=== PATIENT | female | born 1940 | race Caucasian/White ===

== ENCOUNTER → 2016-12-07 | Outpatient (CLI) | payer MEDICARE ==
--- NOTE | 2016-12-07 11:49 | XR ---
EXAMINATION TYPE: XR abdomen 2V DATE OF EXAM: 12/07/2016 11:43 AM COMPARISON: 09/28/2015 HISTORY: Right lower quadrant pain TECHNIQUE: One view abdominal series FINDINGS: Scoliosis and degenerative change of the spine. Surgical clips in the right upper quadrant. 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 Suggestion of previous surgery involving the pelvis. Arthropathy of the hips and vascular appearing pelvic calcifications. The bowel gas pattern is nonspe cific. Lung bases are clear. Findings suggest splenic granuloma. IMPRESSION: 1. Nonspecific abdomen.
== END | disposition home or self-care (01) ==
LOC: RADXRMAIN 11:18
PROVIDERS: ATTEND Family Medicine
DX: R10.31 Right lower quadrant pain (principal)
CPT/HCPCS: 74020

== ENCOUNTER 2016-12-31 21:51 | Inpatient (IN) | payer MEDICARE ==
[2016-12-31] MEDS ORDERED: predniSONE 20 MG TAB PO STA (22:39)
[2016-12-31] MEDS ORDERED: IPRATROPIUM-ALBUTEROL 3 ML NEB INHALATION STA (22:39)
--- NOTE | 2016-12-31 22:43 | ED ---
SOB HPI - General Chief Complaint: Shortness of Breath Stated Complaint: Cough/SOB Time Seen by Provider: 12/31/16 21:53 Source: patient Mode of arrival: wheelchair Limitations: no limitations - History of Present Illness Initial Comments: This patient is a 76-year-old woman with history of COPD who presents with about 6 days of shortness of breath. She states she also has a nonproductive cough that is worse than her baseline. The patient states that the symptoms that her to see her physician on Monday, and she was given a course of antibiotic and what sounds like a Medrol Dosepak. The patient states that she has continued to have similar symptoms more or less without any improvement possibly a little bit of worsening. The patient states that she has been using her home nebulizer, 4 times today and her inhaler an additional 3 times and she still is feeling short of breath. The patient does use home oxygen when necessary and has been using it today. Patient denies fever or chills. No chest pain. No leg pain or swelling. No change in bowel movements or urination. MD Complaint: shortness of breath, cough Onset/Timin -: days(s) Severity: moderate Consistency: constant Improves With: nothing Worsens With: exertion Known History Of: COPD Associated Symptoms: cough Treatments Prior to Arrival: bronchodilator - Related Data Home Medications Medication Instructions Recorded Confirmed Moexipril/Hydrochlorothiazide 1 tab PO DAILY 09/23/14 12/31/16 [Uniretic 15-25 mg Tablet] amLODIPine [Norvasc] 10 mg PO DAILY 09/27/15 12/31/16 Cholecalciferol [Vitamin D3] 50,000 unit PO WEEKLY 10/23/15 12/31/16 Magnesium 200 mg PO DAILY 09/28/16 12/31/16 Previous Rx's Medication Instructions Recorded Albuterol Inhaler [Ventolin Hfa 2 puff INHALATION RT-Q6H PRN #0 10/27/15 Inhaler] Budesonide-Formot 160-4.5 Mcg 2 puff INHALATION RT-BID #0 10/27/15 [Symbicort 160-4.5 Mcg Inhaler] Ipratropium-Albuterol Nebulize 3 ml INHALATION RT-QID #0 10/27/15 [Duoneb 0.5 mg-3 mg/3 ml Soln] Promethaz-Cod 6.25-10 mg/5 ml 5 ml PO Q6HR PRN #140 ml 11/12/15 [Phenergan with Codeine] Allergies Allergy/AdvReac Type Severity Reaction Status Date / Time moxifloxacin HCl Allergy Rash/Hives, Verified 12/31/16 21:55 [From Avelox] SWELLING hydrocodone bitartrate AdvReac Nausea & Verified 12/31/16 21:55 [From Lortab] Vomiting simvastatin AdvReac muscle pain Verified 12/31/16 21:55 Review of Systems ROS Statement: Those systems with pertinent positive or pertinent negative responses have been documented in the HPI. ROS Other: All systems not noted in ROS Statement are negative. Constitutional: Denies: fever, chills, weakness Respiratory: Reports: cough, dyspnea, wheezes. Denies: hemoptysis Cardiovascular: Denies: chest pain, orthopnea, edema, syncope Gastrointestinal: Denies: abdominal pain, vomiting, diarrhea, melena, hematochezia Genitourinary: Denies: dysuria, frequency, hematuria Musculoskeletal: Denies: back pain Skin: Denies: rash Neurological: Denies: headache Past Medical History Past Medical History: Asthma, COPD, GERD/Reflux, Hyperlipidemia, Hypertension, Osteoarthritis (OA), Pneumonia, Respiratory Disorder Additional Past Medical History / Comment(s): 12/15/15 Pt presented to [facility] ER with cough and ELIAS for past couple weeks which worsened this morning. Pt states she had a fever yesterday. She was recently diagnosed with pneumonia on Monday12/12/15. Pt is being admitted to [facility] with acute exacerbation of COPD, pneumonia. Other HX: pneumonia, bronchitis, OA multiple joints, diverticulitis. History of Any Multi-Drug Resistant Organisms: None Reported Past Surgical History: Appendectomy, Bowel Resection, Cholecystectomy, Orthopedic Surgery, Tubal Ligation Additional Past Surgical History / Comment(s): 11/11/15 bronchoscopy and lavage, bowel resection due to diverticulitis, right knee arthroscopy, sinus surgery, carpal tunnel left wrist, colonoscopy. Past Anesthesia/Blood Transfusion Reactions: No Reported Reaction Past Psychological History: Anxiety Additional Psychological History / Comment(s): Pt lives alone. She is independent. She uses no assistive device. She drives. Smoking Status: Former smoker Past Alcohol Use History: None Reported Additional Past Alcohol Use History / Comment(s): QUIT SMOKING 1997, STARTED AGE 18 Past Drug Use History: None Reported - Past Family History Mother Family Medical History: Myocardial Infarction ([place]) Additional Family Medical History / Comment(s): Mother of [place] at age 65 yrs. Sister(s) Family Medical History: Cancer Additional Family Medical History / Comment(s): Twin sister had LUNG cancer. Father Family Medical History: Cancer Additional Family Medical History / Comment(s): Father had cancer in his neck. He from this at age 73 yrs. General Exam Limitations: no limitations General appearance: alert, in no apparent distress Head exam: Present: atraumatic, normocephalic Eye exam: Present: normal appearance. Absent: scleral icterus, conjunctival injection Respiratory exam: Present: respiratory distress (Mild tachypnea), wheezes, decreased breath sounds, prolonged expiratory. Absent: rales, rhonchi, stridor , accessory muscle use Cardiovascular Exam: Present: regular rate, normal rhythm, normal heart sounds. Absent: systolic murmur, diastolic murmur, rubs, gallop GI/Abdominal exam: Present: soft. Absent: tenderness, guarding, rebound Extremities exam: Present: normal inspection, normal capillary refill. Absent: pedal edema, calf tenderness Back exam: Present: normal inspection. Absent: CVA tenderness (R), CVA tenderness (L) Neurological exam: Present: alert Skin exam: Present: warm, dry, intact, normal color. Absent: rash, cyanosis, diaphoretic, erythema, petechiae, pallor, mottled Course Vital Signs 12/31/16 12/31/16 12/31/16 21:51 22:54 23:03 Temperature 99 F Pulse Rate 94 84 89 Respiratory 24 Rate Blood Pressure 152/74 O2 Sat by Pulse 93 L Oximetry 12/31/16 01/01/17 01/01/17 23:18 00:39 00:49 Temperature Pulse Rate 95 94 Respiratory 20 Rate Blood Pressure O2 Sat by Pulse Oximetry Medical Decision Making - Lab Data Result diagrams: 12/31/16 22:18 12/31/16 22:18 Lab Results 12/31/16 12/31/16 12/31/16 Range/Units 22:18 22:18 22:18 WBC 5.6 (3.8-10.6) k/uL RBC 4.90 (3.80-5.40) m/uL Hgb 14.5 (11.4-16.0) gm/dL Hct 43.2 (34.0-46.0) % MCV 88.2 (80.0-100.0) fL MCH 29.6 (25.0-35.0) pg MCHC 33.5 (31.0-37.0) g/dL RDW 14.2 (11.5-15.5) % Plt Count 254 (150-450) k/uL Neutrophils % (Manual) 57.0 % Band Neutrophils % 10.0 % Lymphocytes % (Manual) 27.0 % Monocytes % (Manual) 5.0 % Basophils % (Manual) 0.5 % Metamyelocytes % 0.5 % Neutrophils # (Manual) 3.8 (1.3-7.7) k/uL Lymphocytes # (Manual) 1.5 (1.0-4.8) k/uL Monocytes # (Manual) 0.3 (0-1.0) k/uL Basophils # (Manual) 0.0 (0-0.2) k/uL Nucleated RBCs 0 (0-0) /100 WBC Large Platelets Present Poikilocytosis (manual Present Anisocytosis (manual) Present PT 9.7 (9.0-12.0) sec INR 0.9 (<1.1) APTT 21.1 L (22.0-30.0) sec D-Dimer 0.41 (<0.60) mg/L FEU Sodium 138 (137-145) mmol/L Potassium 3.4 L (3.5-5.1) mmol/L Chloride 101 (98-107) mmol/L Carbon Dioxide 27 (22-30) mmol/L Anion Gap 10 mmol/L BUN 21 H (7-17) mg/dL Creatinine 0.60 (0.52-1.04) mg/dL Est GFR (MDRD) Af Amer >60 (>60 ml/min/1.73 sqM) Est GFR (MDRD) Non-Af >60 (>60 ml/min/1.73 sqM) Glucose 126 H (74-99) mg/dL Calcium 8.9 (8.4-10.2) mg/dL Total Bilirubin 0.5 (0.2-1.3) mg/dL AST 53 H (14-36) U/L ALT 62 H (9-52) U/L Alkaline Phosphatase 111 (38-126) U/L Troponin I (0.000-0.034) ng/mL NT-Pro-B Natriuret Pep pg/mL Total Protein 6.4 (6.3-8.2) g/dL Albumin 3.8 (3.5-5.0) g/dL Influenza Type A RNA (Not Detectd) Influenza Type B (PCR) (Not Detectd) 12/31/16 12/31/16 12/31/16 Range/Units 22:18 22:18 22:18 WBC (3.8-10.6) k/uL RBC (3.80-5.40) m/uL Hgb (11.4-16.0) gm/dL Hct (34.0-46.0) % MCV (80.0-100.0) fL MCH (25.0-35.0) pg MCHC (31.0-37.0) g/dL RDW (11.5-15.5) % Plt Count (150-450) k/uL Neutrophils % (Manual) % Band Neutrophils % % Lymphocytes % (Manual) % Monocytes % (Manual) % Basophils % (Manual) % Metamyelocytes % % Neutrophils # (Manual) (1.3-7.7) k/uL Lymphocytes # (Manual) (1.0-4.8) k/uL Monocytes # (Manual) (0-1.0) k/uL Basophils # (Manual) (0-0.2) k/uL Nucleated RBCs (0-0) /100 WBC Large Platelets Poikilocytosis (manual Anisocytosis (manual) PT (9.0-12.0) sec INR (<1.1) APTT (22.0-30.0) sec D-Dimer (<0.60) mg/L FEU Sodium (137-145) mmol/L Potassium (3.5-5.1) mmol/L Chloride (98-107) mmol/L Carbon Dioxide (22-30) mmol/L Anion Gap mmol/L BUN (7-17) mg/dL Creatinine (0.52-1.04) mg/dL Est GFR (MDRD) Af Amer (>60 ml/min/1.73 sqM) Est GFR (MDRD) Non-Af (>60 ml/min/1.73 sqM) Glucose (74-99) mg/dL Calcium (8.4-10.2) mg/dL Total Bilirubin (0.2-1.3) mg/dL AST (14-36) U/L ALT (9-52) U/L Alkaline Phosphatase (38-126) U/L Troponin I <0.012 (0.000-0.034) ng/mL NT-Pro-B Natriuret Pep 55 pg/mL Total Protein (6.3-8.2) g/dL Albumin (3.5-5.0) g/dL Influenza Type A RNA Not Detected (Not Detectd) Influenza Type B (PCR) Detected H (Not Detectd) - EKG Data -: EKG Interpreted by Me EKG shows normal: sinus rhythm (With occasional premature supraventricular complexes.), axis (Normal), intervals (Normal), QRS complexes (Normal) Rate: normal (Rate 92 bpm) Interpretation: nonspecific ST-T wave changes Disposition Clinical Impression: COPD (chronic obstructive pulmonary disease) with emphysema, Influenza Disposition: ADMITTED IP TO THIS HOSP Condition: Poor
[2016-12-31 23:09] LABS: Aty Lym Flag Slight; CH 30.1; CHCM 34.2; HCT 43.2 % (34.0-46.0); HGB 14.5 gm/dL (11.4-16.0); MCH 29.6 pg (25.0-35.0); MCHC 33.5 g/dL (31.0-37.0); MCV 88.2 fL (80.0-100.0); RDW 14.2 % (11.5-15.5); WBC 5.6 k/uL (3.8-10.6); WBC (Perox) 5.42
[2016-12-31 23:25] LABS: ALT 62 U/L (9-52); AST 53 U/L (14-36); Alkaline Phosphatase 111 U/L (38-126); Anion Gap 10 mmol/L; Blood Urea Nitrogen 21 mg/dL (7-17); Calcium 8.9 mg/dL (8.4-10.2); Carbon Dioxide 27 mmol/L (22-30); Chloride 101 mmol/L (98-107); Glucose 126 mg/dL (74-99); Non-African American GFR(MDRD) >60 (>60 ml/min/1.73 sqM); Potassium 3.4 mmol/L (3.5-5.1); Sodium 138 mmol/L (137-145); Total Bilirubin 0.5 mg/dL (0.2-1.3); Total Protein 6.4 g/dL (6.3-8.2)
--- NOTE | 2016-12-31 23:26 | XR ---
EXAM: XR Chest, 1 View. CLINICAL HISTORY: Reason: dyspnea TECHNIQUE: Frontal view of the chest. COMPARISON: Chest radiograph on 12/15/2015 FINDINGS: Hardware: None. Lungs/pleura: Again seen is hyperinflation of the lungs, suggestive of COPD. Mild hazy opacities in bilateral lower lungs may represent atelectasis versus infiltrate. No focal consolidation. No pleural effusion or pneumothorax. Heart/mediastinum: Atherosclerotic calcifications in the aortic arch. No cardiomegaly. Soft tissues: Unremarkable. Bones: No acute fracture. Upper abdomen: Normal. IMPRESSION: Mild hazy opacities in the lower lungs bilaterally likely represent atelectasis although pneumonia not entirely excluded. Hyperinflation of the lungs, compatible with COPD.
[2016-12-31 23:31] LABS: INR 0.9 (<1.1); Prothrombin Time 9.7 sec (9.0-12.0)
[2016-12-31 23:44] LABS: Add Differential Manual Differential
[2016-12-31 23:50] LABS: Metamyelocytes % 0.5 %; Nucleated Red Blood Cells 0 /100 WBC (0-0); Total Cells Counted 200
[2016-12-31 23:54] LABS: Large Platelets Present
[2017-01-01 00:07] LABS: Partial Thromboplastin Time 21.1 sec (22.0-30.0)
[2017-01-01] MEDS ORDERED: ALBUTEROL NEBULIZED 2.5 MG/3 ML INHALATION STA (00:20)
[2017-01-01] MEDS ORDERED: ALBUTEROL NEBULIZED 2.5 MG/3 ML INHALATION PRN (00:51)
[2017-01-01] MEDS ORDERED: NICOTINE 14MG/24HR PATCH TRANSDERM SCH (01:00)
[2017-01-01] MEDS ORDERED: Potassium Replacement Protocol 1 EACH MISC MISCELLANE PRN ×2 (01:32→02:53)
[2017-01-01 01:53] VITALS: BMI 31.2
[2017-01-01] MEDS: POTASSIUM CHLORIDE 10 MEQ in WATER FOR INJECTION 1 100ML.BAG IVPB SCH ×2 (02:30→03:55)
[2017-01-01] MEDS: SODIUM CHLORIDE 0.9% 1,000 ML IV SCH (02:31)
[2017-01-01] MEDS: POTASSIUM CHLORIDE 10 MEQ, LIDOCAINE 2% INJ 10 MG in SODIUM CHLORIDE 0.9% 100 ML IV SCH ×2 (03:26→04:34)
[2017-01-01] MEDS: FORMOTEROL FUMARATE 20 MCG/2 ML NEBU INHALATION SCH ×2 (07:21→20:15)
[2017-01-01] MEDS: BUDESONIDE 0.5 MG/2 ML NEBU INHALATION SCH ×2 (07:21→20:15)
[2017-01-01] MEDS: IPRATROPIUM-ALBUTEROL 3 ML NEB INHALATION SCH ×4 (07:21→20:15)
[2017-01-01 07:46] LABS: Glucose,Whole Blood 134 mg/dL (75-99)
[2017-01-01 08:36] LABS: CH 30.4; CHCM 34.3; HCT 42.7 % (34.0-46.0); HDW 2.83; HGB 14.6 gm/dL (11.4-16.0); MCH 30.4 pg (25.0-35.0); MCHC 34.2 g/dL (31.0-37.0); MCV 88.9 fL (80.0-100.0); Mean Platelet Volume 7.9; RDW 14.2 % (11.5-15.5); WBC 3.8 k/uL (3.8-10.6)
[2017-01-01] MEDS ORDERED: predniSONE 20 MG TAB PO SCH (09:00)
[2017-01-01] MEDS ORDERED: HYDROCHLOROTHIAZIDE 25 MG TAB PO SCH (09:00)
[2017-01-01] MEDS ORDERED: LISINOPRIL 20 MG TAB PO SCH (09:00)
[2017-01-01] MEDS ORDERED: CHOLECALCIFEROL 1,000 UNIT TAB PO SCH (09:00)
[2017-01-01] MEDS ORDERED: TIOTROPIUM 18 MCG/PUFF INHALER INHALATION SCH (09:00)
[2017-01-01 09:02] LABS: Anion Gap 11 mmol/L; Blood Urea Nitrogen 15 mg/dL (7-17); Calcium 8.6 mg/dL (8.4-10.2); Carbon Dioxide 26 mmol/L (22-30); Chloride 104 mmol/L (98-107); Glucose 142 mg/dL (74-99); Non-African American GFR(MDRD) >60 (>60 ml/min/1.73 sqM); Sodium 141 mmol/L (137-145)
[2017-01-01] MEDS: MAGNESIUM OXIDE 400 MG TAB PO SCH (11:38)
[2017-01-01] MEDS: amLODIPine 10 MG TAB PO SCH (11:38)
[2017-01-01] MEDS: OSELTAMIVIR 75 MG CAP PO SCH ×2 (11:38→21:43)
[2017-01-01 11:59] LABS: Glucose,Whole Blood 92 mg/dL (75-99)
[2017-01-01] MEDS ORDERED: METOPROLOL TARTRATE 12.5 MG TAB PO SCH (13:15)
[2017-01-01 17:20] LABS: Glucose,Whole Blood 125 mg/dL (75-99)
[2017-01-01] MEDS: HYDROCHLOROTHIAZIDE 25 MG TAB PO SCH (19:45)
[2017-01-01] MEDS: METOPROLOL TARTRATE 12.5 MG TAB PO SCH (19:45)
[2017-01-01] MEDS ORDERED: SYMBICORT 160-4.5 MCG INHALER INHALATION SCH (20:00)
[2017-01-01 20:31] LABS: Glucose,Whole Blood 188 mg/dL (75-99)
[2017-01-01] MEDS: methylPREDNISolone SOD SUCCI 40 MG/ML 1 ML VIAL IV SCH (21:42)
[2017-01-01] MEDS: ENOXAPARIN 40 MG/0.4 ML SYRINGE SQ SCH (21:43)
[2017-01-02] MEDS: SODIUM CHLORIDE 0.9% 1,000 ML IV SCH (04:26)
[2017-01-02] MEDS: FORMOTEROL FUMARATE 20 MCG/2 ML NEBU INHALATION SCH (07:32)
[2017-01-02] MEDS: IPRATROPIUM-ALBUTEROL 3 ML NEB INHALATION SCH ×2 (07:32→11:31)
[2017-01-02] MEDS: BUDESONIDE 0.5 MG/2 ML NEBU INHALATION SCH (07:32)
[2017-01-02 07:35] LABS: Glucose,Whole Blood 119 mg/dL (75-99)
[2017-01-02 07:37] VITALS: RESP 18
[2017-01-02] MEDS: METOPROLOL TARTRATE 12.5 MG TAB PO SCH (07:39)
[2017-01-02] MEDS: MAGNESIUM OXIDE 400 MG TAB PO SCH (07:39)
[2017-01-02] MEDS: methylPREDNISolone SOD SUCCI 40 MG/ML 1 ML VIAL IV SCH (07:42)
[2017-01-02] MEDS: HYDROCHLOROTHIAZIDE 25 MG TAB PO SCH (07:43)
[2017-01-02] MEDS: amLODIPine 10 MG TAB PO SCH (07:43)
[2017-01-02] MEDS: OSELTAMIVIR 75 MG CAP PO SCH (07:43)
[2017-01-02] MEDS: ENOXAPARIN 40 MG/0.4 ML SYRINGE SQ SCH (07:43)
[2017-01-02 07:49] VITALS: BP 162/73; TEMP 97.1
--- NOTE | 2017-01-02 08:17 | HP ---
DATE OF ADMISSION: 01/01/2017 PRESENTING COMPLAINT: Cough, short of breath, wheezing. HISTORY OF PRESENTING COMPLAINT: This is a 76-year-old patient of Dr. Ariza whose chronic stable medical conditions include GERD, hyperlipidemia, hypertension, osteoarthritis, has been having cough, short of breath and wheezing, went to see Dr. Ariza in the office. Just received antibiotics and prednisone about 5 days ago, was not getting better, hence presented here. Patient is found to be flue positive, and also in COPD exacerbation. Patient has lots of bouts with coughing, no able to expectorate anything. Believe it a dry cough. Denies any fever. Appetite is present. Feels somewhat better after getting admitted. REVIEW OF SYSTEMS: CONSTITUTIONAL: Weak and tired. HEENT: None. RESPIRATORY: As above. CARDIOVASCULAR: None. GASTROINTESTINAL: None. GENITOURINARY: None. MUSCULOSKELETAL: Pain in the joints. DERMATOLOGICAL: None. HEMATOLOGICAL: None. LYMPHATIC: None. PSYCHIATRY: None. NEUROLOGICAL: None. MUSCULOSKELETAL: Some achiness in all the muscles, initially. Past medical history of COPD, GERD, hyperlipidemia, hypertension, osteoarthritis. PAST SURGICAL HISTORY: Appendectomy, bowel resection, cholecystectomy, tubal ligation, right knee arthroscopy, carpal tunnel repair left hand. Family history of lung cancer. Allergies to MOXIFLOXACIN and LORTAB, HYDROCORTISONE, SIMVASTATIN. HOME MEDICATIONS: 1. Norvasc 10 mg a day. 2. Vitamin D3 one hundred units p.o. b.i.d. 3. Lopressor 12.5 p.o. b.i.d. 4. DuoNeb q.i.d. 5. Motrin 200 to 400 mg q.6 p.r.n. 6. Hydrochlorothiazide 25 mg a day. 7. Symbicort 160/4.5 two puffs b.i.d. 8. Ventolin HFA 2 puffs q.6 p.r.n. On examination, vital signs on presentation: Temperature 99, pulse 94, respirations 24, blood pressure 152/74, pulse ox 93% on room air. GENERAL APPEARANCE: Average build, sitting up, tired-appearing. EYES: Pupils equal. Conjunctivae normal. HEENT: External appearance of nose and ears normal. Oral cavity normal. NECK: JVD not raised. Mass not palpable. Respiratory effort increased. LUNGS: Diminished breath sounds. Prolonged expiration and wheezing. CARDIOVASCULAR: First and second sounds normal, no edema. ABDOMEN: Soft, nontender. Liver and spleen not palpable. LYMPHATIC: No lymph nodes palpable in neck or axillae. PSYCHIATRY: Alert and oriented x3. Mood and affect sightly anxious-appearing. NEUROLOGICAL: Pupils equal. Cranial nerves grossly intact. Power and sensation grossly intact. MUSCULOSKELETAL: Evidence of osteoarthritis of multiple joints. INVESTIGATIONS: White count 5.6, hemoglobin 14.5, platelets 254. Potassium 3.4. BUN 21, creatinine 0.6, glucose 126, 134. Influenza type B with PCR positive. Chest x-ray reviewed by me shows some slight infiltrate at the bases, prominent pulmonary artery. ASSESSMENT: 1. Acute influenza B pneumonitis bilateral causing acute exacerbation of chronic obstructive pulmonary disease in an ex-smoker. 2. Hyperlipidemia. 3. Essential hypertension. 4. Primary osteoarthritis in multiple joints bilateral. 5. Gastroesophageal reflux disease. PLAN: Patient was started on nebulized bronchodilators, IV steroids, Tamiflu, Lovenox. Care was discussed with the patient.
--- NOTE | 2017-01-02 08:19 | HP ---
ADDENDUM: DATE OF ADMISSION: 01/01/2017 SOCIAL HISTORY: Patient smoked for several years; stopped smoking in 1997, started smoking at the age of 18. Lives by itself. No alcohol. FAMILY HISTORY: Twin sister had lung cancer.
--- NOTE | 2017-01-02 11:19 | P.CNPUL ---
History of Present Illness Consult date: 01/02/17 Reason for consult: dyspnea, cough, COPD Chief complaint: shortness of breath cough History of present illness: 76-year-old female well-known to me. She has history of underlying COPD. For the last 5 or 6 days prior to admission she came in with complaints of increasing shortness of breath. She also nonproductive cough. The patient was given a course of antibiotics and a Medrol Dosepak as an outpatient. Probably call them on my office. Anyway she was using her nebulizer machine much more frequently. She was getting worse and worse. She wanted to be seen. She came in on Monday. She has not been seen by the pulmonology team. I'm seeing her for the first time today. She is feeling much better. Wants to be discharged home. This is a 4 year anniversary of her said that that also her and her 's anniversary date. Anyway she is hoping to be able to be discharged and feels that she could be treated at home some O2 when she is being treated.. She does have an appointment to see me in the office on January 11. Review of Systems A 12 point review of systems is positive for shortness breath cough wheezing. She wasn't really producing any phlegm. No fever no chills. No nausea vomiting or diarrhea. No chest pain or chest discomfort. Past Medical History Past Medical History: Asthma, COPD, Hyperlipidemia, Hypertension, Osteoarthritis (OA), Pneumonia, Respiratory Disorder Additional Past Medical History / Comment(s): 12/15/15 Pt presented to [facility] ER with cough and ELIAS for past couple weeks which worsened this morning. Pt is being admitted to [facility] with acute exacerbation of COPD, pneumonia, infulenza B. Other HX: pneumonia, bronchitis, OA multiple joints, diverticulitis. History of Any Multi-Drug Resistant Organisms: None Reported Past Surgical History: Appendectomy, Bowel Resection, Cholecystectomy, Orthopedic Surgery, Tubal Ligation Additional Past Surgical History / Comment(s): 11/11/15 bronchoscopy and lavage, bowel resection due to diverticulitis 2012, right knee arthroscopy, sinus surgery, carpal tunnel left wrist, colonoscopy. Past Anesthesia/Blood Transfusion Reactions: No Reported Reaction Past Psychological History: Anxiety Additional Psychological History / Comment(s): Pt lives alone. She is independent. She uses no assistive device. She drives. Smoking Status: Former smoker Past Alcohol Use History: None Reported Additional Past Alcohol Use History / Comment(s): QUIT SMOKING 1997, STARTED AGE 18 Past Drug Use History: None Reported - Past Family History Mother Family Medical History: Myocardial Infarction ([place]) Additional Family Medical History / Comment(s): Mother of [place] at age 65 yrs. Sister(s) Family Medical History: Cancer Additional Family Medical History / Comment(s): Twin sister had LUNG cancer. Father Family Medical History: Cancer Additional Family Medical History / Comment(s): Father had cancer in his neck. He from this at age 73 yrs. Medications and Allergies Home Medications Medication Instructions Recorded Confirmed Type amLODIPine [Norvasc] 10 mg PO DAILY 09/27/15 01/01/17 History Hydrochlorothiazide [Hydrodiuril] 25 mg PO DAILY 01/01/17 01/01/17 History Ibuprofen [Motrin] 200 - 400 mg PO Q6HR PRN 01/01/17 01/01/17 History Metoprolol Tartrate [Lopressor] 12.5 mg PO DAILY 01/01/17 01/01/17 History Vitamin D3 250iu 250 unit PO BID 01/01/17 01/01/17 History Allergies Allergy/AdvReac Type Severity Reaction Status Date / Time moxifloxacin HCl Allergy Rash/Hives, Verified 01/01/17 11:43 [From Avelox] SWELLING hydrocodone bitartrate AdvReac Nausea & Verified 01/01/17 11:43 [From Lortab] Vomiting simvastatin AdvReac muscle pain Verified 01/01/17 11:43 [id number] Reductase AdvReac MUSCLE PAIN Verified 01/01/17 11:43 Inhibitor Physical Exam Osteopathic Statement: *. No significant issues noted on an osteopathic structural exam other than those noted in the History and Physical/Consult. Vitals: Vital Signs Temp Pulse Pulse Resp BP Pulse Ox 01/02/17 08:09 80 01/02/17 07:40 80 01/02/17 07:39 82 01/02/17 07:32 80 18 01/02/17 07:00 97.1 F L 82 16 162/73 95 01/01/17 22:53 97.3 F L 86 17 145/68 96 01/01/17 20:15 80 01/01/17 17:10 80 01/01/17 16:53 82 01/01/17 16:00 81 16 01/01/17 15:00 96.6 F L 81 16 132/61 97 01/01/17 12:02 80 01/01/17 11:51 82 17 Intake and Output 01/01/17 01/02/17 01/02/17 22:59 06:59 14:59 Intake Total 160 160 Balance 160 160 Intake: IV 60 160 Sodium Chloride 0.9% 1, 60 160 000 ml @ 20 mls/hr IV . Q24H [facility] Rx#:[id number] Oral 100 Other: Voiding Method Toilet Toilet Toilet Weight 80 kg Patient Weight 01/03/17 06:59 Weight 80 kg No acute distress, oriented 3. No respiratory distress. No audible wheezing. HEENT examination is grossly unremarkable. Mucous membranes are moist. No oral lesions. Neck supple. Full range of motion. No adenopathy or thyromegaly. Cardiovascular examination reveals regular rhythm rate. S1-S2 normal. No S3- S4 or murmur. Lungs reveal few scattered crackles. A few wheezes. A few scattered rhonchi. Breath sounds are diminished. All in all doesn't really sound that bad. Abdomen soft bowel sounds are heard. Extremities are intact. Results - Laboratory Findings CBC and BMP: 01/01/17 07:47 01/01/17 07:47 PT/INR, D-dimer PT 9.7 sec (9.0-12.0) 12/31/16 22:18 INR 0.9 (<1.1) 12/31/16 22:18 D-Dimer 0.41 mg/L FEU (<0.60) 12/31/16 22:18 Abnormal lab findings: Abnormal Labs 01/01/17 01/01/17 01/01/17 07:43 07:47 17:18 Creatinine 0.51 L Glucose 142 H POC Glucose (mg/dL) 134 H 125 H 01/01/17 01/02/17 20:28 07:29 Creatinine Glucose POC Glucose (mg/dL) 188 H 119 H - Diagnostic Findings Chest x-ray: image reviewed (Labs x-rays and medications are all reviewed.) Assessment and Plan (1) COPD (chronic obstructive pulmonary disease) with emphysema Status: Acute (2) Influenza Status: Acute Plan: Plan dated 01/02/2017 The patient wants to be discharged home. We have a follow-up appointment with her on January 11. She go home on her Tamiflu 75 mg twice a day for a total of 5 days. She can be discharged home on some prednisone and some antibiotics. We' ll continue to follow. Overall prognosis is guarded but she's doing relatively well. Medications labs and x-rays are all reviewed. Her influenza type B by PCR was positive. Time with Patient: Greater than 30
[2017-01-02 11:41] VITALS: PULSE 82
[2017-01-02 11:56] LABS: Glucose,Whole Blood 117 mg/dL (75-99)
--- NOTE | 2017-01-04 07:18 | DS ---
DATE OF ADMISSION: 01/01/2017 DATE OF DISCHARGE: 01/02/2017 FINAL DIAGNOSES: 1. Acute influenza B pneumonitis causing acute exacerbation of chronic obstructive pulmonary disease in an ex-smoker. 2. Hyperlipidemia. 3. Essential hypertension. 4. Primary osteoarthritis of multiple joints, bilateral. 5. Gastroesophageal reflux disease. HOSPITAL COURSE: This patient presented with COPD exacerbation from influenza. ( ) better at the time of discharge. ON EXAMINATION: LUNGS: Decreased breath sounds. Mild wheezing. CARDIOVASCULAR: First and second normal. Up and about. She is much improved. CONSULTATION: Dr. Sarabia from pulmonary. DISCHARGE MEDICATIONS: 1. Norvasc 10 mg p.o. daily. 2. Ventolin HFA 2 puffs q.6 p.r.n. 3. Symbicort 160/4.5 two puffs b.i.d. 4. DuoNeb q.i.d. 5. Hydrochlorothiazide 25 mg a day. 6. Motrin 200 to 400 mg q.6 p.r.n. 7. Lopressor 12.5 p.o. daily. 8. Vitamin D3, 250 units p.o. b.i.d. 9. Tamiflu 75 mg p.o. q.12, six capsules. 10. Prednisone taper. Follow up with Dr. Ariza on 01/06/17. Follow up with pulmonary. Discharge planning more than 35 minutes.
== END 2017-01-02 15:20 | disposition home or self-care (01) | DRG 190 ==
LOC: EC 21:51 → 5MS5E 01-01 00:51
PROVIDERS: ADMIT Hospitalist; ATTEND Hospitalist
DX: J44.1 Chronic obstructive pulmonary disease with (acute) exacerbation (principal); J10.00 Influenza due to other identified influenza virus with unspecified type of pneumonia; Z99.81 Dependence on supplemental oxygen; I10 Essential (primary) hypertension; J45.909 Unspecified asthma, uncomplicated; I49.1 Atrial premature depolarization; F41.9 Anxiety disorder, unspecified; E78.5 Hyperlipidemia, unspecified; K21.9 Gastro-esophageal reflux disease without esophagitis; R53.1 Weakness; M19.91 Primary osteoarthritis, unspecified site; Z87.891 Personal history of nicotine dependence; Z79.899 Other long term (current) drug therapy; Z80.1 Family history of malignant neoplasm of trachea, bronchus and lung; Z90.49 Acquired absence of other specified parts of digestive tract; Z82.49 Family history of ischemic heart disease and other diseases of the circulatory system; Z88.1 Allergy status to other antibiotic agents; Z88.5 Allergy status to narcotic agent; Z88.8 Allergy status to other drugs, medicaments and biological substances; Z87.01 Personal history of pneumonia (recurrent); Z87.09 Personal history of other diseases of the respiratory system; Z86.19 Personal history of other infectious and parasitic diseases; Z87.19 Personal history of other diseases of the digestive system; Z80.8 Family history of malignant neoplasm of other organs or systems; Z98.51 Tubal ligation status; Z79.1 Long term (current) use of non-steroidal anti-inflammatories (NSAID); Z79.51 Long term (current) use of inhaled steroids
CPT/HCPCS: 36415; 71010; 80048; 80053; 83880; 84484; 85025; 85027; 85379; 85610; 85730; 87502; 93005; 94640; 99285

== ENCOUNTER 2017-01-28 00:46 | Emergency (ER) | payer MEDICARE ==
[2017-01-28] MEDS ORDERED: ONDANSETRON 4 MG/2 ML VIAL IVP STA (01:22)
[2017-01-28] MEDS ORDERED: MORPHINE SULFATE 4 MG/ML SYRINGE IVP STA (01:23)
--- NOTE | 2017-01-28 01:36 | ED ---
Nausea/Vomiting/Diarrhea HPI - General Chief complaint: Nausea/Vomiting/Diarrhea Stated complaint: NVD Time Seen by Provider: 01/28/17 01:06 Source: patient, RN notes reviewed, old records reviewed Mode of arrival: wheelchair Limitations: no limitations - History of Present Illness Initial comments: Patient is an 76-year-old female she complaint of nausea vomiting diarrhea since 5 PM. Patient reports she's had multiple episodes of vomiting and a few episodes of diarrhea. She denies any blood in her stools or vomit. Has had some left lower quadrant abdominal pain. No fevers but feels chilled. Patient has a history of a partial bowel resection from Dr. Marroquin. She denies recent antibiotic use. - Related Data Home Medications Medication Instructions Recorded Confirmed amLODIPine [Norvasc] 10 mg PO DAILY 09/27/15 01/29/17 Hydrochlorothiazide [Hydrodiuril] 25 mg PO DAILY 01/01/17 01/29/17 Ibuprofen [Motrin] 200 - 400 mg PO Q6HR PRN 01/01/17 01/29/17 Metoprolol Tartrate [Lopressor] 12.5 mg PO DAILY 01/01/17 01/29/17 Vitamin D3 250iu 250 unit PO BID 01/01/17 01/29/17 Previous Rx's Medication Instructions Recorded Albuterol Inhaler [Ventolin Hfa 2 puff INHALATION RT-Q6H PRN #0 10/27/15 Inhaler] Budesonide-Formot 160-4.5 Mcg 2 puff INHALATION RT-BID #0 10/27/15 [Symbicort 160-4.5 Mcg Inhaler] Ipratropium-Albuterol Nebulize 3 ml INHALATION RT-QID #0 10/27/15 [Duoneb 0.5 mg-3 mg/3 ml Soln] Allergies Allergy/AdvReac Type Severity Reaction Status Date / Time moxifloxacin HCl Allergy Rash/Hives, Verified 01/28/17 00:52 [From Avelox] SWELLING hydrocodone bitartrate AdvReac Nausea & Verified 01/28/17 00:52 [From Lortab] Vomiting simvastatin AdvReac muscle pain Verified 01/28/17 00:52 Spoends-Hrm-Gne Reductase AdvReac MUSCLE PAIN Verified 01/28/17 00:52 Inhibitor Review of Systems ROS Statement: Those systems with pertinent positive or pertinent negative responses have been documented in the HPI. ROS Other: All systems not noted in ROS Statement are negative. Past Medical History Past Medical History: Asthma, COPD, Hyperlipidemia, Hypertension, Osteoarthritis (OA), Pneumonia, Respiratory Disorder Additional Past Medical History / Comment(s): 12/15/15 Pt presented to [facility] ER with cough and ELIAS for past couple weeks which worsened this morning. Pt is being admitted to [facility] with acute exacerbation of COPD, pneumonia, infulenza B. Other HX: pneumonia, bronchitis, OA multiple joints, diverticulitis. History of Any Multi-Drug Resistant Organisms: None Reported Past Surgical History: Appendectomy, Bowel Resection, Cholecystectomy, Orthopedic Surgery, Tubal Ligation Additional Past Surgical History / Comment(s): 11/11/15 bronchoscopy and lavage, bowel resection due to diverticulitis 2012, right knee arthroscopy, sinus surgery, carpal tunnel left wrist, colonoscopy. Past Anesthesia/Blood Transfusion Reactions: No Reported Reaction Past Psychological History: Anxiety Additional Psychological History / Comment(s): Pt lives alone. She is independent. She uses no assistive device. She drives. Smoking Status: Former smoker Past Alcohol Use History: None Reported Additional Past Alcohol Use History / Comment(s): QUIT SMOKING 1997, STARTED AGE 18 Past Drug Use History: None Reported - Past Family History Mother Family Medical History: Myocardial Infarction (HI) Additional Family Medical History / Comment(s): Mother of HI at age 65 yrs. Sister(s) Family Medical History: Cancer Additional Family Medical History / Comment(s): Twin sister had LUNG cancer. Father Family Medical History: Cancer Additional Family Medical History / Comment(s): Father had cancer in his neck. He from this at age 73 yrs. General Exam Limitations: no limitations General appearance: alert, in no apparent distress Head exam: Present: atraumatic, normocephalic, normal inspection Eye exam: Present: normal appearance, PERRL, EOMI. Absent: scleral icterus, conjunctival injection, periorbital swelling ENT exam: Present: normal exam, mucous membranes moist Neck exam: Present: normal inspection. Absent: tenderness, meningismus, lymphadenopathy Respiratory exam: Present: normal lung sounds bilaterally. Absent: respiratory distress, wheezes, rales, rhonchi, stridor Cardiovascular Exam: Present: regular rate, normal rhythm, normal heart sounds. Absent: systolic murmur, diastolic murmur, rubs, gallop, clicks Course Vital Signs 01/28/17 01/28/17 01/28/17 00:49 03:47 03:56 Temperature 98.4 F 99.5 F Pulse Rate 100 100 Respiratory 16 18 Rate Blood Pressure 115/64 129/64 O2 Sat by Pulse 100 95 90 L Oximetry 01/28/17 04:15 Temperature 98.4 F Pulse Rate 99 Respiratory 18 Rate Blood Pressure 130/68 O2 Sat by Pulse 95 Oximetry Medical Decision Making - Medical Decision Making Pleasant 76 year old female with fatigue and nausea and diarrhea for over 12 hours. Patient labwork reviewed, mild leukocytosis. KUB shows evidence of mild illeus, CT scan showed gastroenteritis, no other findings. Patient Reevaluated and feeling much better after fluids, states she wants to go home. Patient agrees with treatment plan and return parameters. - Lab Data Result diagrams: 01/28/17 01:12 01/28/17 01:12 Lab Results 01/28/17 01/28/17 01/28/17 Range/Units 01:12 01:12 02:21 WBC 14.5 H (3.8-10.6) k/uL RBC 5.63 H (3.80-5.40) m/uL Hgb 16.9 H (11.4-16.0) gm/dL Hct 51.0 H (34.0-46.0) % MCV 90.6 (80.0-100.0) fL MCH 30.0 (25.0-35.0) pg MCHC 33.1 (31.0-37.0) g/dL RDW 15.6 H (11.5-15.5) % Plt Count 311 (150-450) k/uL Neutrophils % 93 % Lymphocytes % 2 % Monocytes % 3 % Eosinophils % 0 % Basophils % 1 % Neutrophils # 13.4 H (1.3-7.7) k/uL Lymphocytes # 0.3 L (1.0-4.8) k/uL Monocytes # 0.5 (0-1.0) k/uL Eosinophils # 0.0 (0-0.7) k/uL Basophils # 0.1 (0-0.2) k/uL Sodium 138 (137-145) mmol/L Potassium 3.5 (3.5-5.1) mmol/L Chloride 101 (98-107) mmol/L Carbon Dioxide 25 (22-30) mmol/L Anion Gap 12 mmol/L BUN 32 H (7-17) mg/dL Creatinine 0.80 (0.52-1.04) mg/dL Est GFR (MDRD) Af Amer >60 (>60 ml/min/1.73 sqM) Est GFR (MDRD) Non-Af >60 (>60 ml/min/1.73 sqM) Glucose 137 H (74-99) mg/dL Calcium 9.4 (8.4-10.2) mg/dL Total Bilirubin 0.8 (0.2-1.3) mg/dL AST 44 H (14-36) U/L ALT 66 H (9-52) U/L Alkaline Phosphatase 95 (38-126) U/L Total Protein 7.1 (6.3-8.2) g/dL Albumin 4.3 (3.5-5.0) g/dL Amylase 33 (30-110) U/L Lipase 184 (23-300) U/L Urine Color Yellow Urine Appearance Cloudy H (Clear) Urine pH 5.5 (5.0-8.0) Ur Specific [place] 1.019 (1.001-1.035) Urine Protein 1+ H (Negative) Urine Glucose (UA) Negative (Negative) Urine Ketones Negative (Negative) Urine Blood Negative (Negative) Urine Nitrite Negative (Negative) Urine Bilirubin Negative (Negative) Urine Urobilinogen <2.0 (<2.0) mg/dL Ur Leukocyte Esterase Negative (Negative) Urine RBC <1 (0-5) /hpf Urine WBC 2 (0-5) /hpf Ur Squamous Epith Cells 1 (0-4) /hpf Urine Bacteria Occasional H (None) /hpf Hyaline Casts 19 H (0-2) /lpf Urine Mucus Many H (None) /hpf - Radiology Data Radiology results: report reviewed Chest x-ray and KUB x-ray negative for any acute process. CT abdomen and pelvis just shows evidence of gastroenteritis. No evidence of diverticulitis or other abnormalities Disposition Clinical Impression: Gastroenteritis Disposition: HOME SELF-CARE Condition: Good Instructions: Acute Nausea and Vomiting (ED), Acute Diarrhea (ED) Additional Instructions: Patient advised to remain hydrated. Take Motrin and Tylenol for pain. Follow- up with primary care provider in the next 2-3 days. Return to the emergency department if any alarming signs or symptoms occur. Referrals: Neptali Ariza DO [Primary Care Provider] - 1-2 days Time of Disposition: 04:07
[2017-01-28] MEDS ORDERED: SODIUM CHLORIDE 0.9% 1,000 ML IV ONE (01:48)
[2017-01-28] MEDS ORDERED: SODIUM CHLORIDE 0.9% 1,000 ML IV SCH (02:00)
--- NOTE | 2017-01-28 02:00 | XR ---
EXAM: XR Abdomen Complete, 2 or More Views. CLINICAL HISTORY: Pain TECHNIQUE: Frontal view of the abdomen/pelvis with upright view of the abdomen. COMPARISON: No relevant prior studies available. FINDINGS: Intraperitoneal space: No free air. Gastrointestinal tract: Unremarkable. No dilation. Organs: Surgical clips project within the right upper quadrant, likely prior cholecystectomy. Punctate calcifications within spleen, likely remote granulomatous infection. Punctate calcifications within the pelvis, presumably phleboliths. Bones/joints: Degenerative changes of the spine. IMPRESSION: No acute findings.
--- NOTE | 2017-01-28 02:02 | XR ---
EXAM: XR Chest, 2 Views. CLINICAL HISTORY: pain TECHNIQUE: Frontal and lateral views of the chest. COMPARISON: Chest x-ray dated 12/31/2016 FINDINGS: Lungs: Unremarkable. No consolidation. Pleural space: Unremarkable. No pneumothorax. Heart: Unremarkable. No cardiomegaly. Mediastinum: Unremarkable. Bones/joints: Unremarkable. IMPRESSION: Normal chest x-rays.
[2017-01-28 02:27] LABS: Basophils # (A) 0.1 k/uL (0-0.2); Basophils % (A) 1 %; CH 31.2; CHCM 34.5; Eosinophils % (A) 0 %; HDW 2.85; HGB 16.9 gm/dL (11.4-16.0); Luc # (Auto) 0.14; Luc % (Auto) 1; Lymphocytes # (A) 0.3 k/uL (1.0-4.8); Lymphocytes % (A) 2 %; MCHC 33.1 g/dL (31.0-37.0); MCV 90.6 fL (80.0-100.0); Mean Platelet Volume 6.8; Monocytes # (A) 0.5 k/uL (0-1.0); Monocytes % (A) 3 %; Neutrophils # (A) 13.4 k/uL (1.3-7.7); Neutrophils % (A) 93 %; RBC 5.63 m/uL (3.80-5.40); RDW 15.6 % (11.5-15.5); WBC 14.5 k/uL (3.8-10.6)
[2017-01-28 02:44] LABS: ALT 66 U/L (9-52); AST 44 U/L (14-36); Alkaline Phosphatase 95 U/L (38-126); Amylase 33 U/L (30-110); Anion Gap 12 mmol/L; Blood Urea Nitrogen 32 mg/dL (7-17); Calcium 9.4 mg/dL (8.4-10.2); Carbon Dioxide 25 mmol/L (22-30); Chloride 101 mmol/L (98-107); Glucose 137 mg/dL (74-99); Non-African American GFR(MDRD) >60 (>60 ml/min/1.73 sqM); Potassium 3.5 mmol/L (3.5-5.1); Sodium 138 mmol/L (137-145); Total Bilirubin 0.8 mg/dL (0.2-1.3); Total Protein 7.1 g/dL (6.3-8.2)
[2017-01-28 02:58] LABS: Appearance,Urine Cloudy (Clear); Bacteria,Urine Occasional /hpf; Bilirubin,Urine Negative (Negative); Glucose,Urine (UA) Negative (Negative); Ketones,Urine Negative (Negative); Leukocyte Esterase,Urine Negative (Negative); Mucus,Urine Many /hpf; Nitrite,Urine Negative (Negative); PH, Urine 5.5 (5.0-8.0); Particle Count 10219; Protein,Urine 1+ (Negative); RBC,Urine <1 /hpf (0-5); Specific Gravity,Urine 1.019 (1.001-1.035); Squamous Epithelial Cell,Urine 1 /hpf (0-4); UA Billing (MACRO vs. MICRO) MICRO; Urobilinogen,Urine <2.0 mg/dL (<2.0); WBC,Urine 2 /hpf (0-5)
[2017-01-28] MEDS ORDERED: RX INFO: IV CONTRAST WAS GIVEN 1 EACH MISC MISCELLANE PRN (03:07)
[2017-01-28 03:52] VITALS: RESP 18
--- NOTE | 2017-01-28 04:01 | CT ---
EXAM: CT Abdomen and Pelvis With Intravenous Contrast. CLINICAL HISTORY: Pain and diarrhea TECHNIQUE: Axial computed tomography images of the abdomen and pelvis with intravenous contrast. CTDI is 7.5, 7.5 mGy and DLP is 529.6 mGy-cm This CT exam was performed using one or more of the following dose reduction techniques: automated exposure control, adjustment of the mA and/or kV according to patient size, and/or use of iterative reconstruction technique. COMPARISON: CT abdomen and pelvis dated 09/27/2015 FINDINGS: Lower thorax: Emphysematous changes and scarring within the lung bases. Small hiatal hernia. ABDOMEN: Liver: Unremarkable. Gallbladder and bile ducts: Mild intra-and extrahepatic bile duct dilatation likely secondary prior cholecystectomy. Pancreas: Unremarkable. Spleen: Punctate calcifications within the spleen suggesting remote granulomatous infection. Adrenals: Unremarkable. Kidneys and ureters: Simple cysts are noted within the right kidney. Nonobstructing calculi within the left kidney. No hydronephrosis. Stomach and bowel: Fluid is noted throughout the small bowel which may represent nonspecific gastroenteritis. Postsurgical changes are noted within the rectum. Appendix: The appendix is surgically absent. PELVIS: Bladder: Unremarkable. Reproductive: Unremarkable as visualized. ABDOMEN and PELVIS: Intraperitoneal space: Unremarkable. Bones/joints: Degenerative changes. Soft tissues: Unremarkable. Vasculature: Unremarkable. Lymph nodes: Unremarkable. IMPRESSION: Fluid is noted throughout the small bowel which may represent nonspecific gastroenteritis.
[2017-01-28 04:16] VITALS: BP 130/68; PULSE 99; TEMP 98.4
== END 2017-01-28 04:23 | disposition home or self-care (01) ==
LOC: EC 00:46
DX: K52.9 Noninfective gastroenteritis and colitis, unspecified (principal); R11.2 Nausea with vomiting, unspecified; R53.83 Other fatigue; I10 Essential (primary) hypertension; Z87.891 Personal history of nicotine dependence; Z79.899 Other long term (current) drug therapy; Z88.1 Allergy status to other antibiotic agents; Z88.5 Allergy status to narcotic agent; Z88.8 Allergy status to other drugs, medicaments and biological substances
CPT/HCPCS: 99285; 96374; 96375; 96361 ×2; 36415; 80053; 82150; 83690; 85025; 81001; 71020; 74000; 74177; J2270; J2405; Q9967

== ENCOUNTER 2017-01-29 23:37 | Inpatient (IN) | payer MEDICARE ==
[2017-01-30] MEDS ORDERED: SODIUM CHLORIDE 0.9% 1,000 ML IV STA (00:11)
[2017-01-30] MEDS ORDERED: HYDROmorphone 1 MG/ML 1 ML SYRINGE IVP STA (00:11)
[2017-01-30] MEDS ORDERED: METOCLOPRAMIDE 5 MG/ML 2 ML VIAL IVP STA (00:11)
--- NOTE | 2017-01-30 00:32 | ED ---
Nausea/Vomiting/Diarrhea HPI - General Chief complaint: Nausea/Vomiting/Diarrhea Stated complaint: NVD-revisit Time Seen by Provider: 01/30/17 00:03 Source: patient, RN notes reviewed, old records reviewed Mode of arrival: ambulatory Limitations: no limitations - History of Present Illness Initial comments: This 76-year-old female chief complaint of nausea vomiting and diarrhea for the past 3 days. Patient was seen 2 days ago for similar complaints. She has got diagnosed with gastroenteritis. Patient states that she is continued to have diarrhea and feels very weak. She reports that her diarrhea is very yellow. Denies any blood in it. Patient reports that she has no history of sick contacts. She does report that she's had a thrush infection in her mouth and has completed Diflucan 3 weeks ago she states this may be concerning to this. She also has a history of partial bowel removal after history of diverticulitis. Patient denies any fever or chills. She states that she did vomit a few times today. - Related Data Home Medications Medication Instructions Recorded Confirmed amLODIPine [Norvasc] 10 mg PO DAILY 09/27/15 01/29/17 Hydrochlorothiazide [Hydrodiuril] 25 mg PO DAILY 01/01/17 01/29/17 Ibuprofen [Motrin] 200 - 400 mg PO Q6HR PRN 01/01/17 01/29/17 Metoprolol Tartrate [Lopressor] 12.5 mg PO DAILY 01/01/17 01/29/17 Vitamin D3 250iu 250 unit PO BID 01/01/17 01/29/17 Previous Rx's Medication Instructions Recorded Albuterol Inhaler [Ventolin Hfa 2 puff INHALATION RT-Q6H PRN #0 10/27/15 Inhaler] Budesonide-Formot 160-4.5 Mcg 2 puff INHALATION RT-BID #0 10/27/15 [Symbicort 160-4.5 Mcg Inhaler] Ipratropium-Albuterol Nebulize 3 ml INHALATION RT-QID #0 10/27/15 [Duoneb 0.5 mg-3 mg/3 ml Soln] Allergies Allergy/AdvReac Type Severity Reaction Status Date / Time moxifloxacin HCl Allergy Rash/Hives, Verified 01/28/17 00:52 [From Avelox] SWELLING hydrocodone bitartrate AdvReac Nausea & Verified 01/28/17 00:52 [From Lortab] Vomiting simvastatin AdvReac muscle pain Verified 01/28/17 00:52 Hfgnjzo-Yxm-Ama Reductase AdvReac MUSCLE PAIN Verified 01/28/17 00:52 Inhibitor Review of Systems ROS Statement: Those systems with pertinent positive or pertinent negative responses have been documented in the HPI. ROS Other: All systems not noted in ROS Statement are negative. Past Medical History Past Medical History: Asthma, COPD, Hyperlipidemia, Hypertension, Osteoarthritis (OA), Pneumonia, Respiratory Disorder Additional Past Medical History / Comment(s): 12/15/15 Pt presented to [facility] ER with cough and ELIAS for past couple weeks which worsened this morning. Pt is being admitted to [facility] with acute exacerbation of COPD, pneumonia, infulenza B. Other HX: pneumonia, bronchitis, OA multiple joints, diverticulitis. History of Any Multi-Drug Resistant Organisms: None Reported Past Surgical History: Appendectomy, Bowel Resection, Cholecystectomy, Orthopedic Surgery, Tubal Ligation Additional Past Surgical History / Comment(s): 11/11/15 bronchoscopy and lavage, bowel resection due to diverticulitis 2012, right knee arthroscopy, sinus surgery, carpal tunnel left wrist, colonoscopy. Past Anesthesia/Blood Transfusion Reactions: No Reported Reaction Past Psychological History: Anxiety Additional Psychological History / Comment(s): Pt lives alone. She is independent. She uses no assistive device. She drives. Smoking Status: Former smoker Past Alcohol Use History: None Reported Additional Past Alcohol Use History / Comment(s): QUIT SMOKING 1997, STARTED AGE 18 Past Drug Use History: None Reported - Past Family History Mother Family Medical History: Myocardial Infarction (NM) Additional Family Medical History / Comment(s): Mother of NM at age 65 yrs. Sister(s) Family Medical History: Cancer Additional Family Medical History / Comment(s): Twin sister had LUNG cancer. Father Family Medical History: Cancer Additional Family Medical History / Comment(s): Father had cancer in his neck. He from this at age 73 yrs. General Exam Limitations: no limitations General appearance: alert, in no apparent distress Head exam: Present: atraumatic, normocephalic, normal inspection Eye exam: Present: normal appearance, PERRL, EOMI. Absent: scleral icterus, conjunctival injection, periorbital swelling ENT exam: Present: normal exam, mucous membranes moist Neck exam: Present: normal inspection. Absent: tenderness, meningismus, lymphadenopathy Respiratory exam: Present: normal lung sounds bilaterally. Absent: respiratory distress, wheezes, rales, rhonchi, stridor Cardiovascular Exam: Present: regular rate, normal rhythm, normal heart sounds. Absent: systolic murmur, diastolic murmur, rubs, gallop, clicks GI/Abdominal exam: Present: soft, tenderness (Left lower quadrant tenderness.), normal bowel sounds. Absent: distended, guarding, rebound, rigid Extremities exam: Present: normal inspection, full ROM, normal capillary refill. Absent: tenderness, pedal edema, joint swelling, calf tenderness Back exam: Present: normal inspection Neurological exam: Present: alert, oriented X3, CN II-XII intact Psychiatric exam: Present: normal affect, normal mood Skin exam: Present: warm, dry, intact, normal color. Absent: rash Course Vital Signs 01/29/17 01/30/17 23:43 02:22 Temperature 97.0 F L 97.4 F L Pulse Rate 96 73 Respiratory 20 18 Rate Blood Pressure 128/67 111/53 O2 Sat by Pulse 94 L 94 L Oximetry Medical Decision Making - Medical Decision Making Is a 76-year-old female for revisit nausea vomiting diarrhea for 3 days. Patient is given IV fluids and lab work was obtained. He has a low potassium at 2.3. Patient is given 20 mEq by mouth. Patient will also be given IV potassium replenishment. Patient abdominal x-ray shows ileus gastroenteritis. She did receive a CAT scan 2 days ago which was negative for any sick gastroenteritis. Patient continues to multiple bowel movements the emergency department no vomiting. Patient will be admitted for IV hydration potassium replenishment. We will consult her surgeon Dr. roman who did her bowel resection surgery. - Lab Data Result diagrams: 01/30/17 00:35 01/30/17 00:35 Lab Results 01/30/17 01/30/17 01/30/17 Range/Units 00:30 00:35 00:35 WBC 7.3 (3.8-10.6) k/uL RBC 4.88 (3.80-5.40) m/uL Hgb 14.9 (11.4-16.0) gm/dL Hct 42.8 (34.0-46.0) % MCV 87.7 (80.0-100.0) fL MCH 30.6 (25.0-35.0) pg MCHC 34.9 (31.0-37.0) g/dL RDW 15.5 (11.5-15.5) % Plt Count 247 (150-450) k/uL Neutrophils % 75 % Lymphocytes % 12 % Monocytes % 8 % Eosinophils % 1 % Basophils % 1 % Neutrophils # 5.5 (1.3-7.7) k/uL Lymphocytes # 0.9 L (1.0-4.8) k/uL Monocytes # 0.6 (0-1.0) k/uL Eosinophils # 0.0 (0-0.7) k/uL Basophils # 0.0 (0-0.2) k/uL Sodium 137 (137-145) mmol/L Potassium 2.7 L* (3.5-5.1) mmol/L Chloride 106 (98-107) mmol/L Carbon Dioxide 20 L (22-30) mmol/L Anion Gap 11 mmol/L BUN 30 H (7-17) mg/dL Creatinine 0.60 (0.52-1.04) mg/dL Est GFR (MDRD) Af Amer >60 (>60 ml/min/1.73 sqM) Est GFR (MDRD) Non-Af >60 (>60 ml/min/1.73 sqM) Glucose 105 H (74-99) mg/dL Calcium 7.9 L (8.4-10.2) mg/dL Total Bilirubin 0.6 (0.2-1.3) mg/dL AST 55 H (14-36) U/L ALT 69 H (9-52) U/L Alkaline Phosphatase 76 (38-126) U/L Total Protein 6.1 L (6.3-8.2) g/dL Albumin 3.5 (3.5-5.0) g/dL Amylase <30 L (30-110) U/L Lipase 110 (23-300) U/L Urine Color Yellow Urine Appearance Clear (Clear) Urine pH 6.0 (5.0-8.0) Ur Specific [place] 1.021 (1.001-1.035) Urine Protein 1+ H (Negative) Urine Glucose (UA) Negative (Negative) Urine Ketones Negative (Negative) Urine Blood Negative (Negative) Urine Nitrite Negative (Negative) Urine Bilirubin Negative (Negative) Urine Urobilinogen <2.0 (<2.0) mg/dL Ur Leukocyte Esterase Negative (Negative) Urine RBC <1 (0-5) /hpf Urine WBC 2 (0-5) /hpf Ur Squamous Epith Cells 1 (0-4) /hpf Hyaline Casts 7 H (0-2) /lpf Urine Mucus Few H (None) /hpf Stool Occult Blood (Negative) C. difficile (EIA) Intrp (Negative) 01/30/17 01/30/17 Range/Units 00:40 00:40 WBC (3.8-10.6) k/uL RBC (3.80-5.40) m/uL Hgb (11.4-16.0) gm/dL Hct (34.0-46.0) % MCV (80.0-100.0) fL MCH (25.0-35.0) pg MCHC (31.0-37.0) g/dL RDW (11.5-15.5) % Plt Count (150-450) k/uL Neutrophils % % Lymphocytes % % Monocytes % % Eosinophils % % Basophils % % Neutrophils # (1.3-7.7) k/uL Lymphocytes # (1.0-4.8) k/uL Monocytes # (0-1.0) k/uL Eosinophils # (0-0.7) k/uL Basophils # (0-0.2) k/uL Sodium (137-145) mmol/L Potassium (3.5-5.1) mmol/L Chloride (98-107) mmol/L Carbon Dioxide (22-30) mmol/L Anion Gap mmol/L BUN (7-17) mg/dL Creatinine (0.52-1.04) mg/dL Est GFR (MDRD) Af Amer (>60 ml/min/1.73 sqM) Est GFR (MDRD) Non-Af (>60 ml/min/1.73 sqM) Glucose (74-99) mg/dL Calcium (8.4-10.2) mg/dL Total Bilirubin (0.2-1.3) mg/dL AST (14-36) U/L ALT (9-52) U/L Alkaline Phosphatase (38-126) U/L Total Protein (6.3-8.2) g/dL Albumin (3.5-5.0) g/dL Amylase (30-110) U/L Lipase (23-300) U/L Urine Color Urine Appearance (Clear) Urine pH (5.0-8.0) Ur Specific [place] (1.001-1.035) Urine Protein (Negative) Urine Glucose (UA) (Negative) Urine Ketones (Negative) Urine Blood (Negative) Urine Nitrite (Negative) Urine Bilirubin (Negative) Urine Urobilinogen (<2.0) mg/dL Ur Leukocyte Esterase (Negative) Urine RBC (0-5) /hpf Urine WBC (0-5) /hpf Ur Squamous Epith Cells (0-4) /hpf Hyaline Casts (0-2) /lpf Urine Mucus (None) /hpf Stool Occult Blood Negative (Negative) C. difficile (EIA) Intrp Negative (Negative) - Radiology Data Radiology results: report reviewed Scattered air-fluid bowel loops which may be cavitation small or large bowel. Chem be seen in the any generalized ileus. Her ongoing intestinal obstruction. Chest x-ray shows no significant change since prior day. Disposition Clinical Impression: Hypokalemia, Nausea & vomiting, Diarrhea Disposition: ADMITTED IP TO THIS HOSP Condition: Stable Time of Disposition: 02:10
--- NOTE | 2017-01-30 00:54 | XR ---
EXAM: XR Abdomen, 1 View. CLINICAL HISTORY: Reason: pain TECHNIQUE: Frontal upright view of the abdomen/pelvis. COMPARISON: CT and abdominal plain film series of the prior day. FINDINGS: Intraperitoneal space: There is no free air seen on this single upright image. Gastrointestinal tract: Multiple scattered dilated air and fluid- filled bowel loops are currently present throughout the abdomen and pelvis, and which may be a combination of small and large bowel. There are again postsurgical changes within the right upper quadrant, and pelvis. Bones/joints: Bones are stable including multilevel degenerative changes, mild dextroscoliosis. IMPRESSION: Scattered air and fluid-filled bowel loops which may be a combination of small and large bowel, and can be seen in the setting of generalized ileus or ongoing intestinal obstruction, are noted.
--- NOTE | 2017-01-30 00:56 | XR ---
EXAM: XR Chest, 2 Views. CLINICAL HISTORY: Reason: pain TECHNIQUE: Frontal and lateral views of the chest. COMPARISON: 01/28/17 two-view chest. FINDINGS: Lungs: The lungs are stable without new focal infiltrate. There are peripheral reticular and fibrotic changes at the lung bases, and the lungs may be mildly hyperinflated. Pleural space: Unremarkable. No pneumothorax. Heart: Unremarkable. No cardiomegaly. Mediastinum: Stable including aortic arch calcification. Bones/joints: The bones are stable including degenerative changes. IMPRESSION: No significant change is seen since the prior day, as above.
[2017-01-30 01:03] LABS: Basophils % (A) 1 %; CHCM 36.6; Eosinophils % (A) 1 %; HCT 42.8 % (34.0-46.0); HGB 14.9 gm/dL (11.4-16.0); Luc # (Auto) 0.25; Luc % (Auto) 4; Lymphocytes # (A) 0.9 k/uL (1.0-4.8); Lymphocytes % (A) 12 %; MCH 30.6 pg (25.0-35.0); MCHC 34.9 g/dL (31.0-37.0); MCV 87.7 fL (80.0-100.0); Monocytes # (A) 0.6 k/uL (0-1.0); Monocytes % (A) 8 %; Neutrophils # (A) 5.5 k/uL (1.3-7.7); Neutrophils % (A) 75 %; RBC 4.88 m/uL (3.80-5.40); RDW 15.5 % (11.5-15.5); WBC 7.3 k/uL (3.8-10.6); WBC (Perox) 7.24
[2017-01-30 01:07] LABS: Appearance,Urine Clear (Clear); Bilirubin,Urine Negative (Negative); Glucose,Urine (UA) Negative (Negative); Ketones,Urine Negative (Negative); Leukocyte Esterase,Urine Negative (Negative); Mucus,Urine Few /hpf; Nitrite,Urine Negative (Negative); Particle Count 4212; Protein,Urine 1+ (Negative); RBC,Urine <1 /hpf (0-5); Specific Gravity,Urine 1.021 (1.001-1.035); Squamous Epithelial Cell,Urine 1 /hpf (0-4); UA Billing (MACRO vs. MICRO) MICRO; Urobilinogen,Urine <2.0 mg/dL (<2.0); WBC,Urine 2 /hpf (0-5)
[2017-01-30 01:14] LABS: ALT 69 U/L (9-52); AST 55 U/L (14-36); Alkaline Phosphatase 76 U/L (38-126); Amylase <30 U/L (30-110); Anion Gap 11 mmol/L; Blood Urea Nitrogen 30 mg/dL (7-17); Calcium 7.9 mg/dL (8.4-10.2); Carbon Dioxide 20 mmol/L (22-30); Chloride 106 mmol/L (98-107); Glucose 105 mg/dL (74-99); Non-African American GFR(MDRD) >60 (>60 ml/min/1.73 sqM); Sodium 137 mmol/L (137-145); Total Bilirubin 0.6 mg/dL (0.2-1.3); Total Protein 6.1 g/dL (6.3-8.2)
[2017-01-30 01:24] LABS: Potassium 2.7 mmol/L (3.5-5.1)
[2017-01-30] MEDS ORDERED: POTASSIUM CHLORIDE ER 20 MEQ TAB.ER PO STA (01:35)
[2017-01-30] MEDS ORDERED: HYDROmorphone 1 MG/ML 1 ML SYRINGE IV PRN (02:10)
[2017-01-30] MEDS ORDERED: HYDROcodone/APAP 5-325MG 1 EACH TAB PO PRN (02:10)
[2017-01-30] MEDS ORDERED: NALOXONE 0.4 MG/ML 1 ML VIAL IV PRN (02:10)
[2017-01-30] MEDS ORDERED: ONDANSETRON 4 MG/2 ML VIAL IVP PRN (02:10)
[2017-01-30] MEDS ORDERED: ALBUTEROL INHALER 60 PUFF/8 GM INHALER INHALATION PRN (02:14)
[2017-01-30] MEDS: POTASSIUM CHLORIDE 10 MEQ, LIDOCAINE 2% INJ 10 MG in SODIUM CHLORIDE 0.9% 100 ML IVPB SCH ×2 (02:21→03:13)
[2017-01-30] MEDS: SODIUM CHLORIDE 0.9% 1,000 ML IV SCH ×2 (02:21→12:54)
[2017-01-30 02:46] VITALS: BMI 26.0
[2017-01-30] MEDS: IPRATROPIUM-ALBUTEROL 3 ML NEB INHALATION SCH ×4 (07:56→20:17)
[2017-01-30] MEDS: SYMBICORT 160-4.5 MCG INHALER INHALATION SCH ×2 (07:56→20:17)
[2017-01-30] MEDS: METOPROLOL TARTRATE 12.5 MG TAB PO SCH (08:24)
[2017-01-30] MEDS: amLODIPine 10 MG TAB PO SCH (08:24)
[2017-01-30] MEDS ORDERED: HYDROCHLOROTHIAZIDE 25 MG TAB PO SCH (09:00)
[2017-01-30] MEDS ORDERED: PANTOPRAZOLE 40 MG/10 ML VIAL IV SCH (09:00)
[2017-01-30] MEDS ORDERED: CHOLECALCIFEROL 400 UNIT TAB PO SCH (09:00)
[2017-01-30 09:18] LABS: Anion Gap 8 mmol/L; Blood Urea Nitrogen 18 mg/dL (7-17); Calcium 7.3 mg/dL (8.4-10.2); Carbon Dioxide 23 mmol/L (22-30); Chloride 110 mmol/L (98-107); Glucose 90 mg/dL (74-99); Non-African American GFR(MDRD) >60 (>60 ml/min/1.73 sqM); Sodium 141 mmol/L (137-145)
[2017-01-30] MEDS: IBUPROFEN 400 MG TAB PO PRN (09:28)
[2017-01-30 09:30] LABS: Potassium 2.6 mmol/L (3.5-5.1)
[2017-01-30] MEDS: POTASSIUM CHLORIDE ER 20 MEQ TAB.ER PO SCH ×4 (10:22→21:03)
[2017-01-30] MEDS ORDERED: POTASSIUM CHLORIDE 20 MEQ, LIDOCAINE 2% INJ 20 MG in SODIUM CHLORIDE 0.9% 100 ML IVPB ONE ×2 (12:00→17:43)
[2017-01-30] MEDS: ENOXAPARIN 40 MG/0.4 ML SYRINGE SQ SCH (14:54)
--- NOTE | 2017-01-30 15:08 | HP ---
DATE OF ADMISSION: 01/30/2017 PRESENTING COMPLAINT: Nausea, vomiting, diarrhea. HISTORY OF PRESENTING COMPLAINT: This is a very pleasant 76-year-old patient of Dr. Ariza, whose chronic stable medical conditions include hyperlipidemia, hypertension, osteoarthritis, GERD. For 3 days patient has been having nausea, vomiting and diarrhea rather perfuse, some abdominal pain. No fever. Patient lives by himself, nobody else got sick. Patient had eaten chicken wings and fries at [employer] which is a local restaurant when all this started. Patient's last vomiting was yesterday. Still having some loose stools. There is no blood in the stools and no fever. The patient does feel weak, tired, exhausted. Patient's daughter and son-in-law are at the bedside, though patient is in decent spirit. REVIEW OF SYSTEMS: CONSTITUTIONAL: Weak and tired. HEENT: None. RESPIRATORY: None. CARDIOVASCULAR: None. GASTROINTESTINAL: As above. GENITOURINARY: None. MUSCULOSKELETAL: Pain in the joints. DERMATOLOGIC: None. HEMATOLOGIC: None. LYMPHATIC: None. PSYCHIATRY: None. Past history of COPD, hyperlipidemia, hypertension, osteoarthritis, GERD, diverticulitis. PAST SURGICAL HISTORY: Appendectomy, bowel resection, cholecystectomy, tubal ligation, bronchoscopy with lavage, bowel resection due to diverticulitis, right knee arthroscopy, sinus surgery, carpal tunnel left wrist. SOCIAL HISTORY: Lives by herself. 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 Patient smoked for about 40 years; stopped smoking in 1997. No alcohol. FAMILY HISTORY: Twin sister had lung cancer. HOME MEDICATIONS: 1. Norvasc 10 mg p.o. daily. 2. Vitamin D3 two hundred, fifty units b.i.d. 3. Lopressor 12.5 p.o. daily. 4. DuoNeb q.i.d. 5. Motrin 200 to 400 q.6 p.r.n. 6. Hydrochlorothiazide 25 p.o. daily. 7. Symbicort 160/4.5 two puffs b.i.d. 8. Albuterol HFA 2 puffs q.6 p.r.n. Allergies to AVELOX, NORCO, SIMVASTATIN. On examination, vital signs on presentation: Temperature 97.4, pulse 90, respiration 18, blood pressure 140/63, pulse ox 96% on room air. GENERAL APPEARANCE: Well built, BMI of 26, lying in bed, tired-appearing. EYES: Pupils equal. Conjunctivae are normal. HEENT: Oral cavity normal. NECK: JVD not raised. Mass not palpable. Respiratory effort normal. LUNGS: Slightly decreased breath sounds. CARDIOVASCULAR: First and second sounds normal. No edema. ABDOMEN: Mild diffuse tenderness. No guarding or rigidity. Liver and spleen not palpable. Bowel sounds are present. LYMPHATIC: No lymph node palpable in neck or axillae. PSYCHIATRY: Alert and oriented x3. Mood is normal. NEUROLOGICAL: Pupils equal. Cranial nerves grossly intact. Power and sensation grossly intact. MUSCULOSKELETAL: Evidence of osteoporosis in multiple joints. INVESTIGATIONS: White count 7.3, hemoglobin 14.9, potassium 2.7. BUN 30, creatinine 0.6. Stool negative for C. diff. Abdominal x-ray, scattered air and fluid-filled bowel loops a combination of small and large bowel. ASSESSMENT: 1. Acute severe gastroenteritis causing some air-fluid levels in a patient with rather protracted course and this well could be a prolonged food poisoning. Patient had eaten out in a restaurant. Patient is still symptomatic, weak and tired. 2. Chronic obstructive pulmonary disease in an ex-smoker. 3. Hyperlipidemia. 4. Essential hypertension. 5. Primary osteoarthritis of multiple joints, bilateral. 6. Gastroesophageal reflux disease. PLAN: Patient will be aggressively hydrated. Most of these cases are self-limiting but given her age and multiple comorbidities, she needs to be aggressively hydrated. Will need at least 2 days in the hospital if she is still having diarrhea. Will send out the stool for ova and parasites. If diarrhea does not hold of, will empirically give Flagyl and Cipro and may actually I would like to do that but actually today is day 4 of her presentation and she is quite elderly. Care was discussed with the patient and family at the bedside. Questions were answered. Will give subQ heparin for DVT prophylaxis. Electrolytes will be followed closely. Patient's hydrochlorothiazide will be discontinued for now. Care was discussed in detail with the patient and family.
[2017-01-30] MEDS: CIPROFLOXACIN HCL 500 MG TAB PO SCH ×2 (15:22→21:02)
[2017-01-30] MEDS ORDERED: metroNIDAZOLE 500 MG TAB PO SCH (16:00)
[2017-01-30] MEDS ORDERED: POTASSIUM CHLORIDE 20 MEQ in WATER FOR INJECTION 1 100ML.BAG IVPB STA (16:37)
[2017-01-30] MEDS: metroNIDAZOLE 500 MG TAB PO SCH ×2 (17:00→21:03)
--- NOTE | 2017-01-30 17:00 | P.GSCN ---
History of Present Illness Consult date: 01/30/17 Reason for Consult: Enteritis History of present illness: Patient hospitalized with complaints of abdominal bloating, abdominal pain, and profuse diarrhea. The patient states that she is already gone to the bathroom approximately 20 times today. She had a CAT scan performed 2 days ago which showed fluid-filled small bowel loops suspicious for enteritis. Initially she thought it may have been related to something that she ate on Monday. Denies fevers or chills. Pain is left midabdomen but does come across and involved the entire abdomen. Symptoms have persisted today. C. diff is normal. Stool cultures pending. She is afebrile. No sick contacts. No recent travels. Her white blood cell count is normal. She was recently treated for thrush with both nystatin and she believes Diflucan. Patient is known to our service from a previous sigmoid colectomy for diverticulitis in 2012. Most recent colonoscopy normal. Review of Systems The patient denies any acute changes in his vision or hearing, no dysphagia or odynophagia, no chest pain or shortness of breath, no dysuria or hematuria, no headache, no runny nose, no rectal bleeding or melena, no unexplained weight loss Past Medical History Past Medical History: Asthma, COPD, Hyperlipidemia, Hypertension, Osteoarthritis (OA), Pneumonia, Respiratory Disorder Additional Past Medical History / Comment(s): 12/15/15 Pt presented to [facility] ER with cough and ELIAS for past couple weeks which worsened this morning. Pt is being admitted to [facility] with acute exacerbation of COPD, pneumonia, infulenza B. Other HX: pneumonia, bronchitis, OA multiple joints, diverticulitis. History of Any Multi-Drug Resistant Organisms: None Reported Past Surgical History: Appendectomy, Bowel Resection, Cholecystectomy, Orthopedic Surgery, Tubal Ligation Additional Past Surgical History / Comment(s): 11/11/15 bronchoscopy and lavage, bowel resection due to diverticulitis 2012, right knee arthroscopy, sinus surgery, carpal tunnel left wrist, colonoscopy. Past Anesthesia/Blood Transfusion Reactions: No Reported Reaction Past Psychological History: Anxiety Additional Psychological History / Comment(s): Pt lives alone. She is independent. She uses no assistive device. She drives. Smoking Status: Former smoker Past Alcohol Use History: None Reported Additional Past Alcohol Use History / Comment(s): QUIT SMOKING 1997, STARTED AGE 18 Past Drug Use History: None Reported - Past Family History Mother Family Medical History: Myocardial Infarction (ID) Additional Family Medical History / Comment(s): Mother of ID at age 65 yrs. Sister(s) Family Medical History: Cancer Additional Family Medical History / Comment(s): Twin sister had LUNG cancer. Father Family Medical History: Cancer Additional Family Medical History / Comment(s): Father had cancer in his neck. He from this at age 73 yrs. Medications and Allergies Home Medications Medication Instructions Recorded Confirmed Type amLODIPine [Norvasc] 10 mg PO DAILY 09/27/15 01/30/17 History Hydrochlorothiazide [Hydrodiuril] 25 mg PO DAILY 01/01/17 01/30/17 History Ibuprofen [Motrin] 200 - 400 mg PO Q6HR PRN 01/01/17 01/30/17 History Metoprolol Tartrate [Lopressor] 12.5 mg PO DAILY 01/01/17 01/30/17 History Vitamin D3 250iu 250 unit PO BID 01/01/17 01/30/17 History Allergies Allergy/AdvReac Type Severity Reaction Status Date / Time moxifloxacin HCl Allergy Rash/Hives, Verified 01/30/17 08:17 [From Avelox] SWELLING hydrocodone bitartrate AdvReac Nausea & Verified 01/30/17 08:17 [From Lortab] Vomiting simvastatin AdvReac muscle pain Verified 01/30/17 08:17 Fdantcq-Mku-Nuu Reductase AdvReac MUSCLE PAIN Verified 01/30/17 08:17 Inhibitor Surgical - Exam Vital Signs Temp Pulse Resp BP Pulse Ox 97.0 F L 96 20 128/67 94 L 01/29/17 23:43 01/29/17 23:43 01/29/17 23:43 01/29/17 23:43 01/29/17 23:43 Physical exam: General: Well-developed, well-nourished HEENT: Normocephalic, sclerae nonicteric Abdomen: Mild left-sided tenderness, mild abdominal distention Extremities: No edema Neuro: Alert and oriented Results - Labs 01/30/17 00:35 01/30/17 15:52 Abnormal Lab Results - Last 24 Hours (Table) 01/30/17 01/30/17 Range/Units 08:50 15:52 Potassium 2.6 L* 3.2 L (3.5-5.1) mmol/L Chloride 110 H (98-107) mmol/L BUN 18 H (7-17) mg/dL Calcium 7.3 L (8.4-10.2) mg/dL Diabetes panel 01/30/17 01/30/17 Range/Units 08:50 15:52 Sodium 141 (137-145) mmol/L Potassium 2.6 L* 3.2 L (3.5-5.1) mmol/L Chloride 110 H (98-107) mmol/L Carbon Dioxide 23 (22-30) mmol/L BUN 18 H (7-17) mg/dL Creatinine 0.52 (0.52-1.04) mg/dL Glucose 90 (74-99) mg/dL Calcium 7.3 L (8.4-10.2) mg/dL Calcium panel 01/30/17 Range/Units 08:50 Calcium 7.3 L (8.4-10.2) mg/dL Pituitary panel 01/30/17 01/30/17 Range/Units 08:50 15:52 Sodium 141 (137-145) mmol/L Potassium 2.6 L* 3.2 L (3.5-5.1) mmol/L Chloride 110 H (98-107) mmol/L Carbon Dioxide 23 (22-30) mmol/L BUN 18 H (7-17) mg/dL Creatinine 0.52 (0.52-1.04) mg/dL Glucose 90 (74-99) mg/dL Calcium 7.3 L (8.4-10.2) mg/dL Adrenal panel 01/30/17 01/30/17 Range/Units 08:50 15:52 Sodium 141 (137-145) mmol/L Potassium 2.6 L* 3.2 L (3.5-5.1) mmol/L Chloride 110 H (98-107) mmol/L Carbon Dioxide 23 (22-30) mmol/L BUN 18 H (7-17) mg/dL Creatinine 0.52 (0.52-1.04) mg/dL Glucose 90 (74-99) mg/dL Calcium 7.3 L (8.4-10.2) mg/dL Assessment and Plan (1) Enteritis Narrative/Plan: Advance diet. Check rotavirus. Await stool studies. We'll follow with you. Status: Acute
[2017-01-30] MEDS ORDERED: Potassium Replacement Protocol 1 EACH MISC MISCELLANE PRN (19:29)
[2017-01-30 22:32] VITALS: RESP 16
[2017-01-31] MEDS: SYMBICORT 160-4.5 MCG INHALER INHALATION SCH (07:21)
[2017-01-31] MEDS: IPRATROPIUM-ALBUTEROL 3 ML NEB INHALATION SCH ×2 (07:21→11:17)
[2017-01-31 07:32] VITALS: BP 149/65; TEMP 97.5
[2017-01-31 07:42] LABS: Basophils # (A) 0.1 k/uL (0-0.2); Basophils % (A) 1 %; CH 31.1; CHCM 33.9; Eosinophils # (A) 0.1 k/uL (0-0.7); Eosinophils % (A) 1 %; HCT 41.9 % (34.0-46.0); HDW 3.03; HGB 13.6 gm/dL (11.4-16.0); Luc % (Auto) 3; Lymphocytes # (A) 0.9 k/uL (1.0-4.8); Lymphocytes % (A) 13 %; MCHC 32.6 g/dL (31.0-37.0); MCV 92.1 fL (80.0-100.0); Mean Platelet Volume 6.8; Monocytes # (A) 0.5 k/uL (0-1.0); Monocytes % (A) 7 %; Neutrophils # (A) 4.8 k/uL (1.3-7.7); Neutrophils % (A) 74 %; RBC 4.54 m/uL (3.80-5.40); RDW 15.8 % (11.5-15.5); WBC 6.5 k/uL (3.8-10.6); WBC (Perox) 6.68
[2017-01-31] MEDS: IBUPROFEN 400 MG TAB PO PRN (07:42)
[2017-01-31 08:06] LABS: Anion Gap 6 mmol/L; Blood Urea Nitrogen 3 mg/dL (7-17); Calcium 7.6 mg/dL (8.4-10.2); Carbon Dioxide 23 mmol/L (22-30); Chloride 112 mmol/L (98-107); Glucose 77 mg/dL (74-99); Non-African American GFR(MDRD) >60 (>60 ml/min/1.73 sqM); Potassium 4.3 mmol/L (3.5-5.1); Sodium 141 mmol/L (137-145)
[2017-01-31] MEDS: ENOXAPARIN 40 MG/0.4 ML SYRINGE SQ SCH (09:34)
[2017-01-31] MEDS: METOPROLOL TARTRATE 12.5 MG TAB PO SCH (09:34)
[2017-01-31] MEDS: amLODIPine 10 MG TAB PO SCH (09:34)
[2017-01-31] MEDS: CIPROFLOXACIN HCL 500 MG TAB PO SCH (09:36)
[2017-01-31] MEDS: metroNIDAZOLE 500 MG TAB PO SCH (09:36)
[2017-01-31] MEDS: SODIUM CHLORIDE 0.9% 1,000 ML IV SCH (09:46)
[2017-01-31 11:20] VITALS: PULSE 82
--- NOTE | 2017-02-01 16:13 | DS ---
DATE OF ADMISSION: 01/30/2017 DATE OF DISCHARGE: 01/31/2017 FINAL DIAGNOSES: 1. Acute severe gastroenteritis, probably from food poisoning, present at admission. 2. Chronic obstructive pulmonary disease in an ex-smoker. 3. Hyperlipidemia. 4. Essential hypertension. 5. Primary osteoarthritis in multiple joints bilaterally. 6. Gastroesophageal reflux disease. 7. Severe hypokalemia from diarrhea. HOSPITAL COURSE: This patient presented with severe gastroenteritis lasting well into the fourth day. Empirically patient was put on Cipro and Flagyl, to which she responded well. Stool was negative for C difficile and also negative for ova and parasites. Patient also was significantly hypokalemic when she presented. That was improved. At the time of discharge, patient is tolerating a soft diet, is up and about. Abdomen is soft, non-tender. DISCHARGE MEDICATIONS: 1. Norvasc 10 mg p.o. daily. 2. Ventolin HFA 2 puffs q.6 p.r.n. 3. Symbicort 160/4.5 two puffs b.i.d. 4. DuoNeb q.i.d. 5. Hydrochlorothiazide 25 mg a day. 6. Lopressor 12.5 p.o. daily. 7. Vitamin D3, 250 units p.o. b.i.d. 8. Cipro 500 mg p.o. b.i.d.; 4 tablets. 9. Flagyl 500 mg p.o. t.i.d.; 6 tablets. DIET: Soft, bland. Follow up with Dr. Ariza on 02/03/17. CONSULTATION: Dr. Marroquin from General Surgery.
== END 2017-01-31 15:40 | disposition home or self-care (01) | DRG 392 ==
LOC: EC 23:37 → 5MS5E 01-30 01:37
PROVIDERS: ADMIT Hospitalist; ATTEND Hospitalist
DX: A05.9 Bacterial foodborne intoxication, unspecified (principal); J44.9 Chronic obstructive pulmonary disease, unspecified; E87.6 Hypokalemia; E78.5 Hyperlipidemia, unspecified; K21.9 Gastro-esophageal reflux disease without esophagitis; F41.9 Anxiety disorder, unspecified; J45.909 Unspecified asthma, uncomplicated; I10 Essential (primary) hypertension; R14.0 Abdominal distension (gaseous); M81.0 Age-related osteoporosis without current pathological fracture; R53.1 Weakness; M19.91 Primary osteoarthritis, unspecified site; Z90.49 Acquired absence of other specified parts of digestive tract; Z80.1 Family history of malignant neoplasm of trachea, bronchus and lung; Z79.899 Other long term (current) drug therapy; Z82.49 Family history of ischemic heart disease and other diseases of the circulatory system; Z79.1 Long term (current) use of non-steroidal anti-inflammatories (NSAID); Z79.51 Long term (current) use of inhaled steroids; Z88.1 Allergy status to other antibiotic agents; Z88.5 Allergy status to narcotic agent; Z87.891 Personal history of nicotine dependence; Z88.8 Allergy status to other drugs, medicaments and biological substances; Z86.19 Personal history of other infectious and parasitic diseases; Z87.19 Personal history of other diseases of the digestive system; Z87.01 Personal history of pneumonia (recurrent); Z98.51 Tubal ligation status; Z80.8 Family history of malignant neoplasm of other organs or systems
CPT/HCPCS: 36415; 71020; 74000; 74177; 80048; 80053; 81001; 82150; 82272; 83690; 84132; 85025; 87045; 87046; 87324; 87328; 87329; 89055; 94640; 96361; 96374; 96375; 99285

== ENCOUNTER → 2017-04-14 | Outpatient (CLI) | payer MEDICARE ==
--- NOTE | 2017-04-14 14:24 | MR ---
EXAMINATION TYPE: MR knee LT wo con DATE OF EXAM: 04/14/2017 COMPARISON: Outside radiographs 03/24/2017 HISTORY: 76-year-old female with left knee pain TECHNIQUE: Multiplanar, multisequence imaging of the left knee is performed without IV contrast. FINDINGS: The ACL and PCL are intact. There is mild soft tissue edema on either side of the intact MCL. There is some fluid seen extending along the myotendinous junction of the popliteus. Otherwise, LCL c omplex is intact. The medial meniscus a diffusely degenerative and torn. Mild diffuse thinning of medial compartment ar ticular cartilage with marginal spurring and more moderate focal cartilage loss along the mid periphe ral aspect of the medial compartment There is an inner margin longitudinal tear in the body of the lateral meniscus. No displaced meniscal fragment. Mild diffuse thinning of lateral compartment articular cartilage with a small 4 mm wide mo derate thickness cartilage defect along the mid to posterior weightbearing aspect of the lateral femo ral condyle. There is moderate diffuse loss of patellar articular cartilage and focal severe cartilage fissuring a long the mid patella with underlying subchondral cystic change. Mild diffuse thinning of trochlear ar ticular cartilage is also noted. There is some tendinopathy signal involving the deep proximal talar tendon fibers. Extensor mechanism otherwise intact. Nonspecific anterior soft tissue swelling. There is a moderate knee joint effusion without Carr's cyst. There is a 1.4 x 1.0 cm posterior loose body. Edematous change within the visualized quadriceps musculature and to a lesser extent within the anter ior compartment of the upper leg. Mild diffuse muscular atrophy. Normal popliteal artery anatomy. Bone island within the medial femoral condyle. No suspicious bone marrow replacement. IMPRESSION: 1. Grade 1 MCL sprain and an intrasubstance tear along the myotendinous junction of the popliteus. 2. Diffusely degenerative and torn medial meniscus with mild to moderate medial compartmental osteoar throsis. 3. A small inner margin longitudinal tear of the body of the lateral meniscus with mild overall later al compartment osteoarthrosis. 4. Moderate patellofemoral compartmental osteoarthrosis. 5. Moderate knee joint effusion with a 1.4 cm posterior loose body. 6. Edema within the quadriceps muscle either muscle strain or changes reactive to altered biomechanic s.
== END | disposition home or self-care (01) ==
LOC: RADMRIMAIN 12:38
PROVIDERS: ATTEND Orthopaedic Surgery
DX: S83.412A Sprain of medial collateral ligament of left knee, initial encounter (principal); S83.282A Other tear of lateral meniscus, current injury, left knee, initial encounter; M17.12 Unilateral primary osteoarthritis, left knee

== ENCOUNTER → 2017-08-25 | Outpatient (CLI) | payer MEDICARE ==
--- NOTE | 2017-08-25 12:02 | XR ---
Lumbar spine HISTORY: Low back pain 3 views of the lumbar spine No comparisons Lumbar vertebral bodies show preserved height and alignment. Bone mineralization is reduced. There is multilevel spondylosis, mild spinal curvature. Loss of disc height present at the intervertebral lev els with associated vacuum phenomenon. Sclerosis present in the posterior elements. The aorta is dens vannessa calcified and likely ectatic. Surgical clips present in the right upper quadrant. IMPRESSION: Osteopenia, degenerative disc disease, facet arthropathy. Aortic ectasia, follow-up nevin lopez.
== END ==
LOC: RADXRMAIN 09:16
PROVIDERS: ATTEND Family Medicine
DX: M51.36 Other intervertebral disc degeneration, lumbar region (principal); M46.86 Other specified inflammatory spondylopathies, lumbar region; M85.88 Other specified disorders of bone density and structure, other site
CPT/HCPCS: 72100

== ENCOUNTER 2017-09-25 08:26 | Emergency (ER) | payer MEDICARE ==
[2017-09-25] MEDS ORDERED: methylPREDNISolone SOD SUCCI 125 MG/2 ML VIAL IV STA (08:50)
[2017-09-25] MEDS ORDERED: IPRATROPIUM-ALBUTEROL 3 ML NEB INHALATION STA (08:50)
--- NOTE | 2017-09-25 08:53 | ED ---
SOB HPI - General Chief Complaint: Shortness of Breath Stated Complaint: SOB Time Seen by Provider: 09/25/17 08:33 Source: patient Mode of arrival: wheelchair Limitations: no limitations - History of Present Illness Initial Comments: This is a 76-year-old female to history of COPD who is a patient of Dr. Cuevas who presents emergency department for cough and worsening shortness of breath. She states it started last week and she saw Dr. Sarabia last week who placed her on Augmentin. She's been taking this every 12 hours however states that she has gradually worsened over the weekend. She went to Dr. Sarabia's office this morning and he saw her and advised her to come emergency department. He was concerned for possible pneumonia or influenza. Patient denies any fevers. She does admit to a productive cough of white or yellow sputum. He admits to feeling increased shortness of breath. Denies any abdominal pain, nausea, or vomiting. No diarrhea. She does admit to some chest tightness and pain with coughing. Denies any other acute complaints. - Related Data Home Medications Medication Instructions Recorded Confirmed Hydrochlorothiazide [Hydrodiuril] 25 mg PO DAILY 01/01/17 09/25/17 Albuterol Nebulized [Ventolin 2.5 mg INHALATION RT-QID PRN 09/25/17 09/25/17 Nebulized] Amoxic-Pot Clav 875-125Mg 1 tab PO Q12HR 09/25/17 09/25/17 [Augmentin 875-125] Cholecalciferol (Vitamin D3) 2,000 unit PO HS 09/25/17 09/25/17 [Vitamin D3] Metoprolol Succinate [Toprol XL] 12.5 mg PO DAILY 09/25/17 09/25/17 amLODIPine [Norvasc] 5 mg PO DAILY 09/25/17 09/25/17 predniSONE See Taper PO DAILY 09/25/17 09/25/17 Previous Rx's Medication Instructions Recorded Albuterol Inhaler [Ventolin Hfa 2 puff INHALATION RT-Q6H PRN #0 10/27/15 Inhaler] Budesonide-Formot 160-4.5 Mcg 2 puff INHALATION RT-BID #0 10/27/15 [Symbicort 160-4.5 Mcg Inhaler] Sulfamethox-Tmp 800-160Mg [Bactrim 1 tab PO Q12HR #14 tab 09/25/17 DS 800-160 mg] Allergies Allergy/AdvReac Type Severity Reaction Status Date / Time moxifloxacin HCl Allergy Rash/Hives, Verified 09/25/17 09:36 [From Avelox] SWELLING hydrocodone bitartrate AdvReac Nausea & Verified 09/25/17 09:36 [From Lortab] Vomiting simvastatin AdvReac muscle pain Verified 09/25/17 09:36 Hhhwdce-Lba-Git Reductase AdvReac MUSCLE PAIN Verified 09/25/17 09:36 Inhibitor Review of Systems ROS Statement: Those systems with pertinent positive or pertinent negative responses have been documented in the HPI. ROS Other: All systems not noted in ROS Statement are negative. Past Medical History Past Medical History: Asthma, COPD, Hyperlipidemia, Hypertension, Osteoarthritis (OA), Pneumonia, Respiratory Disorder Additional Past Medical History / Comment(s): diverticulitis. History of Any Multi-Drug Resistant Organisms: None Reported Past Surgical History: Appendectomy, Bowel Resection, Cholecystectomy, Orthopedic Surgery, Tubal Ligation Additional Past Surgical History / Comment(s): 11/11/15 bronchoscopy and lavage, bowel resection due to diverticulitis 2012, right knee arthroscopy, sinus surgery, carpal tunnel left wrist, colonoscopy. Past Anesthesia/Blood Transfusion Reactions: No Reported Reaction Past Psychological History: Anxiety Smoking Status: Former smoker Past Alcohol Use History: None Reported Past Drug Use History: None Reported - Past Family History Mother Family Medical History: Myocardial Infarction (CO) Additional Family Medical History / Comment(s): Mother of [place] at age 65 yrs. Sister(s) Family Medical History: Cancer Additional Family Medical History / Comment(s): Twin sister had LUNG cancer. Father Family Medical History: Cancer Additional Family Medical History / Comment(s): Father had cancer in his neck. He from this at age 73 yrs. General Exam - General Exam Comments Initial Comments: Constitutional: Awake alert Appears comfortable Head: Normocephalic atraumatic Eyes: no conjunctival injection No scleral icterus EOMI ENT: TMs clear bilaterally, mild pharyngeal erythema Neck: No JVD Supple Heart: Regular rate rhythm normal S1-S2 no murmurs Lungs: Clear to auscultation bilaterally No wheezing No rales Abdomen: Soft nondistended nontender Extremities: Non edematous DP pulses intact Radial pulses intact Neuro: A&Ox3 No focal neurologic deficits Psych: Appropriate mood and affect Limitations: no limitations Course Vital Signs 09/25/17 09/25/17 09/25/17 08:30 09:22 09:31 Temperature 97.7 F Pulse Rate 89 83 86 Respiratory 24 18 Rate Blood Pressure 149/74 O2 Sat by Pulse 95 Oximetry - Reevaluation(s) Reevaluation #1: 09/25/17 08:53 EKG showing normal sinus rhythm with a rate of 84. No abnormal ST segment changes or T-wave inversions. QTC is 453. Other intervals are normal. There is one PVC seen. Medical Decision Making - Medical Decision Making Is a 76-year-old female presents emergency department for worsening soreness of breath and cough. The patient had an x-ray performed that did not show any pneumonia. She was given a DuoNeb treatment here and IV sodium Medrol. She states she felt improved. Her oxygen was 93-94% on 2 L which is much oxygen she typically wears at home. She states that she would prefer to go home. She states that she has improved more on Bactrim in the past and would like to switch her antibiotics to Bactrim. I did speak with Dr. Disla who is on-call for Dr. Cuevas who felt it was okay for her to go home as long as she started taking 40 mg of prednisone daily until she saw Dr. Cuevas in the next couple of days. The patient was updated of this and agree. All questions were answered. - Lab Data Result diagrams: 09/25/17 08:45 09/25/17 08:45 Lab Results 09/25/17 09/25/17 09/25/17 Range/Units 08:45 08:45 08:45 WBC 7.1 (3.8-10.6) k/uL RBC 5.11 (3.80-5.40) m/uL Hgb 14.2 (11.4-16.0) gm/dL Hct 45.6 (34.0-46.0) % MCV 89.3 (80.0-100.0) fL MCH 27.8 (25.0-35.0) pg MCHC 31.1 (31.0-37.0) g/dL RDW 15.5 (11.5-15.5) % Plt Count 347 (150-450) k/uL Neutrophils % 81 % Lymphocytes % 12 % Monocytes % 4 % Eosinophils % 2 % Basophils % 1 % Neutrophils # 5.7 (1.3-7.7) k/uL Lymphocytes # 0.9 L (1.0-4.8) k/uL Monocytes # 0.3 (0-1.0) k/uL Eosinophils # 0.1 (0-0.7) k/uL Basophils # 0.1 (0-0.2) k/uL Sodium 139 (137-145) mmol/L Potassium 4.2 (3.5-5.1) mmol/L Chloride 104 (98-107) mmol/L Carbon Dioxide 24 (22-30) mmol/L Anion Gap 11 mmol/L BUN 17 (7-17) mg/dL Creatinine 0.56 (0.52-1.04) mg/dL Est GFR (MDRD) Af Amer >60 (>60 ml/min/1.73 sqM) Est GFR (MDRD) Non-Af >60 (>60 ml/min/1.73 sqM) Glucose 123 H (74-99) mg/dL Calcium 9.9 (8.4-10.2) mg/dL Magnesium 2.1 (1.6-2.3) mg/dL Total Bilirubin 0.7 (0.2-1.3) mg/dL AST 29 (14-36) U/L ALT 34 (9-52) U/L Alkaline Phosphatase 83 (38-126) U/L Total Protein 7.3 (6.3-8.2) g/dL Albumin 4.3 (3.5-5.0) g/dL Influenza Type A RNA Not Detected (Not Detectd) Influenza Type B (PCR) Not Detected (Not Detectd) Disposition Clinical Impression: COPD exacerbation Disposition: HOME SELF-CARE Condition: Stable Instructions: COPD (Chronic Obstructive Pulmonary Disease) (ED) Prescriptions: Sulfamethox-Tmp 800-160Mg [Bactrim DS 800-160 mg] 1 tab PO Q12HR #14 tab Referrals: Neptali Ariza DO [Primary Care Provider] - 1-2 days Gianluca Sarabia DO [Doctor of Osteopathic Medicine] - 1-2 days
[2017-09-25 09:14] LABS: Basophils # (A) 0.1 k/uL (0-0.2); Basophils % (A) 1 %; CH 28.8; CHCM 32.5; Eosinophils # (A) 0.1 k/uL (0-0.7); Eosinophils % (A) 2 %; HCT 45.6 % (34.0-46.0); HDW 2.73; HGB 14.2 gm/dL (11.4-16.0); Luc # (Auto) 0.05; Luc % (Auto) 1; Lymphocytes # (A) 0.9 k/uL (1.0-4.8); Lymphocytes % (A) 12 %; MCH 27.8 pg (25.0-35.0); MCHC 31.1 g/dL (31.0-37.0); MCV 89.3 fL (80.0-100.0); Mean Platelet Volume 7.6; Monocytes # (A) 0.3 k/uL (0-1.0); Monocytes % (A) 4 %; Neutrophils # (A) 5.7 k/uL (1.3-7.7); Neutrophils % (A) 81 %; RBC 5.11 m/uL (3.80-5.40); RDW 15.5 % (11.5-15.5); WBC 7.1 k/uL (3.8-10.6); WBC (Perox) 7.11
[2017-09-25 09:23] VITALS: RESP 18
[2017-09-25 09:26] LABS: ALT 34 U/L (9-52); AST 29 U/L (14-36); Alkaline Phosphatase 83 U/L (38-126); Anion Gap 11 mmol/L; Blood Urea Nitrogen 17 mg/dL (7-17); Calcium 9.9 mg/dL (8.4-10.2); Carbon Dioxide 24 mmol/L (22-30); Chloride 104 mmol/L (98-107); Glucose 123 mg/dL (74-99); Magnesium 2.1 mg/dL (1.6-2.3); Non-African American GFR(MDRD) >60 (>60 ml/min/1.73 sqM); Potassium 4.2 mmol/L (3.5-5.1); Sodium 139 mmol/L (137-145); Total Bilirubin 0.7 mg/dL (0.2-1.3); Total Protein 7.3 g/dL (6.3-8.2)
--- NOTE | 2017-09-25 09:36 | XR ---
EXAMINATION TYPE: XR chest 2V DATE OF EXAM: 09/25/2017 COMPARISON: 01/30/2017 TECHNIQUE: PA and lateral views submitted. HISTORY: Cough FINDINGS: Hyperinflation suggests COPD. Diffuse osteopenia and arthropathy shoulders. No overt failure. Atheros clerotic change of the aorta. Degenerative change of the spine. IMPRESSION: 1. Correlate for COPD.
[2017-09-25 09:54] LABS: Troponin I <0.012 ng/mL (0.000-0.034)
[2017-09-25 09:57] VITALS: BP 135/65; PULSE 95; TEMP 97
== END 2017-09-25 10:07 | disposition home or self-care (01) ==
LOC: EC 08:26
DX: J44.1 Chronic obstructive pulmonary disease with (acute) exacerbation (principal); M19.90 Unspecified osteoarthritis, unspecified site; I10 Essential (primary) hypertension; Z87.01 Personal history of pneumonia (recurrent); Z82.49 Family history of ischemic heart disease and other diseases of the circulatory system; Z87.891 Personal history of nicotine dependence; Z88.1 Allergy status to other antibiotic agents; Z88.8 Allergy status to other drugs, medicaments and biological substances; Z79.52 Long term (current) use of systemic steroids; Z79.899 Other long term (current) drug therapy
CPT/HCPCS: 99285; 96374; 36415; 94640; 93005; 80053; 82553; 83735; 84484; 85025; 87502; 71020; J2930

== ENCOUNTER 2017-11-16 04:41 | Emergency (ER) | payer MEDICARE ==
[2017-11-16] MEDS ORDERED: ALBUTEROL NEBULIZED 2.5 MG/3 ML INHALATION STA (05:10)
[2017-11-16] MEDS ORDERED: methylPREDNISolone SOD SUCCI 125 MG/2 ML VIAL IV STA (05:10)
[2017-11-16] MEDS ORDERED: SODIUM CHLORIDE 0.9% 1,000 ML IV STA (05:10)
[2017-11-16] MEDS ORDERED: IPRATROPIUM 0.5 MG/2.5 ML NEBU INHALATION STA (05:10)
[2017-11-16] MEDS ORDERED: NALOXONE 0.4 MG/ML 1 ML VIAL IV PRN (05:11)
[2017-11-16 05:38] LABS: Basophils % (A) 1 %; Eosinophils # (A) 0.8 k/uL (0-0.7); Eosinophils % (A) 10 %; HCT 44.1 % (34.0-46.0); HGB 14.4 gm/dL (11.4-16.0); Lymphocytes # (A) 0.8 k/uL (1.0-4.8); Lymphocytes % (A) 10 %; MCH 28.4 pg (25.0-35.0); MCHC 32.6 g/dL (31.0-37.0); MCV 87.1 fL (80.0-100.0); Mean Platelet Volume 7.7; Monocytes # (A) 0.5 k/uL (0-1.0); Monocytes % (A) 6 %; Neutrophils # (A) 5.3 k/uL (1.3-7.7); Neutrophils % (A) 71 %; Platelet Count 264 k/uL (150-450); RBC 5.06 m/uL (3.80-5.40); RDW 13.9 % (11.5-15.5); WBC 7.5 k/uL (3.8-10.6)
--- NOTE | 2017-11-16 05:39 | ED ---
SOB HPI - General Chief Complaint: Shortness of Breath Stated Complaint: SOB Time Seen by Provider: 11/16/17 04:51 Source: patient Mode of arrival: ambulatory Limitations: no limitations - History of Present Illness Initial Comments: 77 years old female comes in with a shortness of breath has a history of COPD shortness of breath started 34 days ago she is complaining about down shortness of breath even at rest she does wear oxygen at home also complaining about tightness in the chest denies any history of heart attacks or no stents or angina history she denies any chest pain with deep breaths no pleuritic component and she denies any history of pulmonary embolism or DVT in the past. No fever no chills has been coughing up phlegm has quit smoking and quit 15 years ago - Related Data Home Medications Medication Instructions Recorded Confirmed Hydrochlorothiazide [Hydrodiuril] 25 mg PO DAILY 01/01/17 11/16/17 Albuterol Nebulized [Ventolin 2.5 mg INHALATION RT-QID PRN 09/25/17 11/16/17 Nebulized] Cholecalciferol (Vitamin D3) 2,000 unit PO HS 09/25/17 11/16/17 [Vitamin D3] Metoprolol Succinate [Toprol XL] 12.5 mg PO DAILY 09/25/17 11/16/17 amLODIPine [Norvasc] 5 mg PO DAILY 09/25/17 11/16/17 Ibuprofen [Motrin] 400 mg PO Q6HR PRN 11/16/17 11/16/17 Previous Rx's Medication Instructions Recorded Albuterol Inhaler [Ventolin Hfa 2 puff INHALATION RT-Q6H PRN #0 10/27/15 Inhaler] Budesonide-Formot 160-4.5 Mcg 2 puff INHALATION RT-BID #0 10/27/15 [Symbicort 160-4.5 Mcg Inhaler] Azithromycin [Zithromax Z-pack] 250 mg PO DIRECTED #6 tab 11/16/17 predniSONE 50 mg PO DAILY #5 tablet 11/16/17 Allergies Allergy/AdvReac Type Severity Reaction Status Date / Time amoxicillin [From Augmentin] Allergy Unknown Verified 11/16/17 04:58 clavulanic acid Allergy Unknown Verified 11/16/17 04:58 [From Augmentin] moxifloxacin HCl Allergy Rash/Hives, Verified 09/25/17 09:36 [From Avelox] SWELLING nitrofurantoin Allergy Rash/Hives Verified 11/16/17 04:58 hydrocodone bitartrate AdvReac Nausea & Verified 09/25/17 09:36 [From Lortab] Vomiting simvastatin AdvReac muscle pain Verified 09/25/17 09:36 Dcjhlxy-Vcn-Hhl Reductase AdvReac MUSCLE PAIN Verified 09/25/17 09:36 Inhibitor Review of Systems ROS Statement: Those systems with pertinent positive or pertinent negative responses have been documented in the HPI. ROS Other: All systems not noted in ROS Statement are negative. Past Medical History Past Medical History: Asthma, COPD, Hyperlipidemia, Hypertension, Osteoarthritis (OA), Pneumonia, Respiratory Disorder Additional Past Medical History / Comment(s): diverticulitis. History of Any Multi-Drug Resistant Organisms: None Reported Past Surgical History: Appendectomy, Bowel Resection, Cholecystectomy, Orthopedic Surgery, Tubal Ligation Additional Past Surgical History / Comment(s): 11/11/15 bronchoscopy and lavage, bowel resection due to diverticulitis 2012, right knee arthroscopy, sinus surgery, carpal tunnel left wrist, colonoscopy. Past Anesthesia/Blood Transfusion Reactions: No Reported Reaction Past Psychological History: Anxiety Smoking Status: Former smoker Past Alcohol Use History: None Reported Past Drug Use History: None Reported - Past Family History Mother Family Medical History: Myocardial Infarction (ND) Additional Family Medical History / Comment(s): Mother of ND at age 65 yrs. Sister(s) Family Medical History: Cancer Additional Family Medical History / Comment(s): Twin sister had LUNG cancer. Father Family Medical History: Cancer Additional Family Medical History / Comment(s): Father had cancer in his neck. He from this at age 73 yrs. General Exam - General Exam Comments Initial Comments: General: The patient is awake and alert, in no distress, and does not appear acutely ill. Skin: Skin is warm and dry and no rashes or lesions are noted. Eye: Pupils are equal, round and reactive to light, extra-ocular movements are intact; there is normal conjunctiva bilaterally. Ears, nose, mouth and throat: There are moist mucous membranes and no oral lesions. Neck: The neck is supple, there is no tenderness or JVD. Cardiovascular: There is a regular rate and rhythm. No murmur, rub or gallop is appreciated. Respiratory: To auscultation bilateral, report air exchange bilaterally consistent with the severe COPD Gastrointestinal: Soft, non-distended, non-tender abdomen without masses or organomegaly noted. There is no rebound or guarding present. Bowel sounds are unremarkable. Back: There is no tenderness to palpation in the midline. There is no obvious deformity. Musculoskeletal: Normal ROM, no tenderness, There is no pedal edema. There is no calf tenderness or swelling. No cords were appreciated. Neurological: CN II-XII intact, Cranial nerves III through XII are intact. There are no obvious motor or sensory deficits. Coordination appears grossly intact. Speech is normal. Psychiatric: Cooperative, appropriate mood & affect, normal judgment. Limitations: no limitations Course Vital Signs 11/16/17 11/16/17 11/16/17 04:43 05:12 05:28 Temperature 98.7 F Pulse Rate 95 91 Respiratory 22 24 20 Rate Blood Pressure 141/75 145/92 O2 Sat by Pulse 94 L 96 Oximetry 11/16/17 11/16/17 11/16/17 05:37 06:00 06:20 Temperature Pulse Rate 72 76 76 Respiratory Rate Blood Pressure O2 Sat by Pulse Oximetry 11/16/17 06:46 Temperature 97.8 F Pulse Rate 96 Respiratory 18 Rate Blood Pressure 127/63 O2 Sat by Pulse 96 Oximetry EKG is normal sinus rhythm ventricular rate is 83 PA interval is 176 QRS duration is 88 QT/QTc is 370/434 review of this EKG does not reveal any ST elevation or ST depression there are some artifacts affecting lead V3 and V4 She is reassessed at 6 59 mL in better she wants to go home her x-rays and a troponin was discussed with her this possibility of bronchitis or early infiltrate she be gone home his prednisone 50 mg daily for next 5 days and Levaquin 500 mg daily for next 7 days Medical Decision Making - Lab Data Result diagrams: 11/16/17 05:00 11/16/17 05:00 Lab Results 11/16/17 11/16/17 11/16/17 Range/Units 05:00 05:00 05:00 WBC 7.5 (3.8-10.6) k/uL RBC 5.06 (3.80-5.40) m/uL Hgb 14.4 (11.4-16.0) gm/dL Hct 44.1 (34.0-46.0) % MCV 87.1 (80.0-100.0) fL MCH 28.4 (25.0-35.0) pg MCHC 32.6 (31.0-37.0) g/dL RDW 13.9 (11.5-15.5) % Plt Count 264 (150-450) k/uL Neutrophils % 71 % Lymphocytes % 10 % Monocytes % 6 % Eosinophils % 10 % Basophils % 1 % Neutrophils # 5.3 (1.3-7.7) k/uL Lymphocytes # 0.8 L (1.0-4.8) k/uL Monocytes # 0.5 (0-1.0) k/uL Eosinophils # 0.8 H (0-0.7) k/uL Basophils # 0.0 (0-0.2) k/uL PT (9.0-12.0) sec INR (<1.2) APTT (22.0-30.0) sec Sodium 140 (137-145) mmol/L Potassium 3.8 (3.5-5.1) mmol/L Chloride 102 (98-107) mmol/L Carbon Dioxide 28 (22-30) mmol/L Anion Gap 10 mmol/L BUN 17 (7-17) mg/dL Creatinine 0.70 (0.52-1.04) mg/dL Est GFR (MDRD) Af Amer >60 (>60 ml/min/1.73 sqM) Est GFR (MDRD) Non-Af >60 (>60 ml/min/1.73 sqM) Glucose 106 H (74-99) mg/dL Calcium 9.7 (8.4-10.2) mg/dL Total Bilirubin 0.6 (0.2-1.3) mg/dL AST 23 (14-36) U/L ALT 32 (9-52) U/L Alkaline Phosphatase 86 (38-126) U/L Total Creatine Kinase 111 (30-135) U/L CK-MB (CK-2) 1.8 (0.0-2.4) ng/mL CK-MB (CK-2) Rel Index 1.6 Troponin I <0.012 (0.000-0.034) ng/mL NT-Pro-B Natriuret Pep pg/mL Total Protein 6.5 (6.3-8.2) g/dL Albumin 3.9 (3.5-5.0) g/dL 11/16/17 11/16/17 Range/Units 05:00 05:00 WBC (3.8-10.6) k/uL RBC (3.80-5.40) m/uL Hgb (11.4-16.0) gm/dL Hct (34.0-46.0) % MCV (80.0-100.0) fL MCH (25.0-35.0) pg MCHC (31.0-37.0) g/dL RDW (11.5-15.5) % Plt Count (150-450) k/uL Neutrophils % % Lymphocytes % % Monocytes % % Eosinophils % % Basophils % % Neutrophils # (1.3-7.7) k/uL Lymphocytes # (1.0-4.8) k/uL Monocytes # (0-1.0) k/uL Eosinophils # (0-0.7) k/uL Basophils # (0-0.2) k/uL PT 9.7 (9.0-12.0) sec INR 1.0 (<1.2) APTT 22.0 (22.0-30.0) sec Sodium (137-145) mmol/L Potassium (3.5-5.1) mmol/L Chloride (98-107) mmol/L Carbon Dioxide (22-30) mmol/L Anion Gap mmol/L BUN (7-17) mg/dL Creatinine (0.52-1.04) mg/dL Est GFR (MDRD) Af Amer (>60 ml/min/1.73 sqM) Est GFR (MDRD) Non-Af (>60 ml/min/1.73 sqM) Glucose (74-99) mg/dL Calcium (8.4-10.2) mg/dL Total Bilirubin (0.2-1.3) mg/dL AST (14-36) U/L ALT (9-52) U/L Alkaline Phosphatase (38-126) U/L Total Creatine Kinase (30-135) U/L CK-MB (CK-2) (0.0-2.4) ng/mL CK-MB (CK-2) Rel Index Troponin I (0.000-0.034) ng/mL NT-Pro-B Natriuret Pep 54 pg/mL Total Protein (6.3-8.2) g/dL Albumin (3.5-5.0) g/dL Disposition Clinical Impression: Dyspnea, Bronchitis Disposition: HOME SELF-CARE Condition: Good Instructions: Chronic Bronchitis (ED) Prescriptions: Azithromycin [Zithromax Z-pack] 250 mg PO DIRECTED #6 tab predniSONE 50 mg PO DAILY #5 tablet Referrals: Neptali Ariza DO [Primary Care Provider] - 1-2 days
--- NOTE | 2017-11-16 05:39 | XR ---
EXAM: XR Chest, 2 Views CLINICAL HISTORY: Reason: difficulty breathing TECHNIQUE: Frontal and lateral views of the chest. COMPARISON: Chest x-ray dated 09/25/2017. FINDINGS: Lungs: Reidentified mild pulmonary hyperinflation. Subtle opacities in both lung bases are favored to be related to overlapping tissue and possibly nipple shadows. The lungs are otherwise clear. Prominent interstitial markings in both lower lungs are unchanged and likely related to chronic lung disease. Pleural space: Unremarkable. No pneumothorax. Heart: Unremarkable. No cardiomegaly. Mediastinum: Unremarkable. Bones/joints: Moderate degenerative changes of both shoulder joints, including the acromioclavicular joints. Moderate degenerative changes of the thoracic spine. Vasculature: Calcification of the aortic arch. IMPRESSION: Subtle opacities in both lung bases are favored to be related to overlapping tissue and possibly nipple shadows. Underlying infection in the left lung base is possible but favored less likely.
[2017-11-16 05:55] LABS: Prothrombin Time 9.7 sec (9.0-12.0)
[2017-11-16 06:02] LABS: ALT 32 U/L (9-52); AST 23 U/L (14-36); Albumin 3.9 g/dL (3.5-5.0); Alkaline Phosphatase 86 U/L (38-126); Anion Gap 10 mmol/L; Blood Urea Nitrogen 17 mg/dL (7-17); Calcium 9.7 mg/dL (8.4-10.2); Carbon Dioxide 28 mmol/L (22-30); Chloride 102 mmol/L (98-107); Glucose 106 mg/dL (74-99); Potassium 3.8 mmol/L (3.5-5.1); Sodium 140 mmol/L (137-145); Total Bilirubin 0.6 mg/dL (0.2-1.3); Total Protein 6.5 g/dL (6.3-8.2)
[2017-11-16 06:13] LABS: Creatine Kinase 111 U/L (30-135)
[2017-11-16 06:26] LABS: Creatine Kinase MB 1.8 ng/mL (0.0-2.4); Troponin I <0.012 ng/mL (0.000-0.034)
[2017-11-16 08:15] VITALS: BP 127/63; PULSE 96; RESP 18; TEMP 97.8
== END 2017-11-16 07:11 | disposition home or self-care (01) ==
LOC: EC 04:41
DX: J40 Bronchitis, not specified as acute or chronic (principal); J44.9 Chronic obstructive pulmonary disease, unspecified; I10 Essential (primary) hypertension; Z87.891 Personal history of nicotine dependence; Z79.899 Other long term (current) drug therapy; Z88.0 Allergy status to penicillin; Z88.1 Allergy status to other antibiotic agents; Z88.5 Allergy status to narcotic agent; Z88.8 Allergy status to other drugs, medicaments and biological substances; Z99.81 Dependence on supplemental oxygen; Z80.1 Family history of malignant neoplasm of trachea, bronchus and lung; Z82.49 Family history of ischemic heart disease and other diseases of the circulatory system
CPT/HCPCS: 99285 ×2; 96374 ×2; 96361 ×3; 36415; 94644; 93005; 83880; 80053; 82550; 82553; 84484; 85025; 85610; 85730; 71046; J2930

== ENCOUNTER → 2018-01-31 | Outpatient (CLI) | payer MEDICARE ==
--- NOTE | 2018-02-01 10:07 | MM ---
Reason for exam: screening (asymptomatic). Last mammogram was performed 1 year and 9 months ago. History: Patient is postmenopausal. Benign excisional biopsy of the left breast, 1959. Physical Findings: A clinical breast exam by your physician is recommended on an annual basis and results should be correlated with mammographic findings. MG 3D Screening Mammo W/Cad Bilateral CC and MLO view(s) were taken. Prior study comparison: May 05, 2016, bilateral MG 3d screening mammo w/cad. April 30, 2015, bilateral MG screening mammo w CAD. The breast tissue is heterogeneously dense. This may lower the sensitivity of mammography. No suspicious abnormality. No significant changes when compared with prior studies. ASSESSMENT: Negative, BI-RAD 1 RECOMMENDATION: Routine screening mammogram of both breasts in 1 year.
== END | disposition home or self-care (01) ==
LOC: RADMAMWWP 10:40
PROVIDERS: ATTEND Family Medicine
DX: Z12.31 Encounter for screening mammogram for malignant neoplasm of breast (principal)
CPT/HCPCS: 77063; 77067

== ENCOUNTER → 2018-02-02 | Outpatient (CLI) | payer MEDICARE ==
[2018-02-02 08:07] LABS: HCT 43.4 % (34.0-46.0); HGB 14.5 gm/dL (11.4-16.0); MCH 29.2 pg (25.0-35.0); MCHC 33.5 g/dL (31.0-37.0); MCV 87.4 fL (80.0-100.0); Mean Platelet Volume 7.7; Platelet Count 280 k/uL (150-450); RBC 4.96 m/uL (3.80-5.40); RDW 14.2 % (11.5-15.5); WBC 7.7 k/uL (3.8-10.6)
[2018-02-02 08:16] LABS: Anion Gap 11 mmol/L; Blood Urea Nitrogen 18 mg/dL (7-17); Carbon Dioxide 30 mmol/L (22-30); Chloride 101 mmol/L (98-107); Potassium 3.9 mmol/L (3.5-5.1); Sodium 142 mmol/L (137-145)
== END | disposition home or self-care (01) ==
LOC: LABPAT 07:51
PROVIDERS: ATTEND Internal Medicine Interventional Cardiology
DX: Z01.812 Encounter for preprocedural laboratory examination (principal); R07.9 Chest pain, unspecified
CPT/HCPCS: 36415; 80051; 82565; 84520; 85027

== ENCOUNTER 2018-02-15 07:33 | Day surgery (SDC) | payer MEDICARE ==
[2018-02-09 11:07] VITALS: BMI 26.2
[~2018-02-15 07:33] MED LIST: ALPRAZolam 0.25 MG TAB PO PRN; ALPRAZolam 0.5 MG TAB PO PRN; ASPIRIN 325 MG TAB PO STA; NITROGLYCERIN SL TABS 0.4 MG TAB SUBLINGUAL PRN; SODIUM CHLORIDE 0.9% 1,000 ML in EMPTY BAG 1 BAG IV ONE
[2018-02-15 07:54] VITALS: TEMP 98
[2018-02-15] MEDS ORDERED: VERAPAMIL 2.5 MG/ML 2 ML AMP ONE (08:53)
[2018-02-15] MEDS ORDERED: LIDOCAINE 2% INJ 20 MG/ML (20 ML MDV) ONE (08:53)
[2018-02-15] MEDS ORDERED: MIDAZOLAM 2 MG/2 ML VIAL ONE (09:02)
[2018-02-15] MEDS: MIDAZOLAM 2 MG/2 ML VIAL IVP ONE ×2 (09:11→09:15)
[2018-02-15] MEDS ORDERED: HEPARIN SODIUM 1,000 UN/ML (10ML VL) ONE (09:11)
[2018-02-15] MEDS ORDERED: LIDOCAINE 2% INJ 20 MG/ML SQ ONE (09:13)
[2018-02-15] MEDS: VERAPAMIL SYRINGE (5 MG/10 ML) INTRAARTER ONE ×2 (09:15→09:24)
[2018-02-15] MEDS ORDERED: HEPARIN SODIUM 1,000 UN/ML (10ML VL) IV ONE (09:16)
[2018-02-15] MEDS ORDERED: IOPAMIDOL-370 125ML BTL INJ ONE (09:24)
[2018-02-15] MEDS ORDERED: RX INFO: IV CONTRAST WAS GIVEN 1 EACH MISC MISCELLANE PRN (09:31)
[2018-02-15] MEDS ORDERED: SODIUM CHLORIDE 0.9% 1,000 ML IV SCH (09:45)
--- NOTE | 2018-02-15 10:05 | CC ---
CARDIAC CATHETERIZATION REPORT DATE OF SERVICE: 02/15/2018. INDICATION OF THE STUDY: Chest pain. PROCEDURE PERFORMED: 1. Selective right and left coronary angiogram. 2. Left heart catheterization. PERFORMING PHYSICIAN: Savage Neff MD, manufacturing project manager. COMPLICATION: None. LEVEL OF SEDATION: Moderate with sedation length of 13 minutes. PROCEDURE DESCRIPTION: After obtaining an informed consent, the patient was brought to cardiac lab coordinator. The right radial artery was cannulated using micropuncture technique, the micropuncture wire passed easily, then I placed a 6-Kinyarwanda sheath in the right radial artery. After that, I did give the patient 2 mg of verapamil IA and 6000 units of heparin IV. After that I did selective right and left coronary angiogram using JR4 and JL3.5 catheters. I did left heart catheterization using the JR4 which flipped into the LV then I did pullback across aortic valve. The procedure was completed without any complication. SELECTIVE CORONARY ANGIOGRAM: 1. The RCA is a large caliber vessel and it is a dominant vessel. The RCA has mild disease only. Distally, it bifurcates into PDA and PLV branches both are angiographically normal. 2. The left main is angiographically normal. It bifurcates into left circumflex and left anterior descending artery. 3. The left circumflex is a large caliber vessel. It is a nondominant vessel. The left circumflex system appeared to be angiographically normal. 4. The LAD; the proximal LAD appeared to have mild disease only and gives rise into a medium-sized diagonal branch which seems to be angiographically normal. The mid LAD appeared to be normal and gives rise into 2 diagonal branches both are angiographically normal and distally appeared to be angiographically normal. 5. HEMODYNAMICS: The left ventricular end-diastolic pressure was 10 mmHg and no gradient was identified across the aortic valve. CONCLUSION: 1. Normal coronary angiogram. 2. Normal left ventricular end-diastolic pressure. Postprocedure management is medical treatment. MMODL / IJN: [id number] /
--- NOTE | 2018-02-15 10:08 | LTR ---
DATE OF SERVICE: 02/15/2018 RE: Yakelin Tobar Dear Dr. Ariza; Ms. Yakelin Tobar underwent a heart catheterization today and that revealed normal coronaries. I want to thank you for allowing me to participate in her care and please do not hesitate to call if you have any question or concern. Sincerely, Savage Neff MD MMMICHAELL / ANUMN: [id number] /
[2018-02-15 10:30] VITALS: RESP 18
[2018-02-15 13:57] VITALS: BP 167/83; PULSE 78
== END 2018-02-15 14:18 | disposition home or self-care (01) ==
LOC: CATHCVL 07:33
PROVIDERS: ATTEND Internal Medicine Interventional Cardiology
DX: R07.9 Chest pain, unspecified (principal); I10 Essential (primary) hypertension; Z82.49 Family history of ischemic heart disease and other diseases of the circulatory system; E78.5 Hyperlipidemia, unspecified; J44.9 Chronic obstructive pulmonary disease, unspecified; Z79.51 Long term (current) use of inhaled steroids; Z79.899 Other long term (current) drug therapy; Z88.1 Allergy status to other antibiotic agents; Z88.5 Allergy status to narcotic agent; Z87.891 Personal history of nicotine dependence
CPT/HCPCS: 93458; C1894; J2001; J2250; J1644; Q9967

== ENCOUNTER → 2018-03-07 | Outpatient (CLI) | payer MEDICARE ==
[2018-03-07 08:25] LABS: ALT 45 U/L (9-52); AST 36 U/L (14-36); Cholesterol 229 mg/dL (<200); HDL Cholesterol 80 mg/dL (40-60); LDL Cholesterol,Calculated 133 mg/dL (0-99); Triglycerides 80 mg/dL (<150)
== END | disposition home or self-care (01) ==
LOC: LABWHC1 07:47
PROVIDERS: ATTEND Nurse Practitioner Adult Health
DX: E78.2 Mixed hyperlipidemia (principal)
CPT/HCPCS: 36415; 80061; 84450; 84460

== ENCOUNTER → 2018-03-07 | Outpatient (CLI) | payer MEDICARE ==
[~2018-03-07] MED LIST changes: -ALPRAZolam 0.25 MG TAB PO PRN; -ALPRAZolam 0.5 MG TAB PO PRN; -ASPIRIN 325 MG TAB PO STA; -NITROGLYCERIN SL TABS 0.4 MG TAB SUBLINGUAL PRN; -SODIUM CHLORIDE 0.9% 1,000 ML in EMPTY BAG 1 BAG IV ONE; +SODIUM CHLORIDE 0.9% 500 ML in EMPTY BAG 1 BAG IV PRN; +ZOLEDRONIC ACID 5 MG in SODIUM CHLORIDE 0.9% 100 ML IV ONE
[2018-03-07 08:45] VITALS: BP 149/71; PULSE 72; RESP 16; TEMP 97.7
== END | disposition home or self-care (01) ==
LOC: PROCWHC3 07:53
PROVIDERS: ATTEND Family Medicine
DX: M81.0 Age-related osteoporosis without current pathological fracture (principal)
CPT/HCPCS: 96365; J3489

== ENCOUNTER 2018-03-08 01:07 | Emergency (ER) | payer MEDICARE ==
[2018-03-08 12:14] LABS: Glucose,Whole Blood 99 mg/dL (75-99)
== END 2018-03-08 02:54 | disposition left against medical advice (07) ==
LOC: EC 01:07
DX: I10 Essential (primary) hypertension (principal); R51 Headache; R73.9 Hyperglycemia, unspecified; I25.2 Old myocardial infarction; Z95.5 Presence of coronary angioplasty implant and graft; Z87.891 Personal history of nicotine dependence; Z88.8 Allergy status to other drugs, medicaments and biological substances
CPT/HCPCS: 36415; 99284

== ENCOUNTER → 2018-03-09 | Outpatient (CLI) | payer MEDICARE ==
--- NOTE | 2018-03-09 12:21 | CT ---
EXAMINATION TYPE: CT brain wo con DATE OF EXAM: 03/09/2018 COMPARISON: 09/20/2015 HISTORY: Headache and nausea with elevated blood pressure CT DLP: 943.8 mGycm Automated exposure control for dose reduction was used. TECHNIQUE: CT scan of the head is performed without contrast. FINDINGS: There is no acute intracranial hemorrhage or midline shift identified. There is diffuse v entricular and sulcal prominence consistent with diffuse age-related cerebral atrophy. Few punctate d ystrophic calcifications are seen of the left basal ganglia. There a few patchy areas of low-attenuat ion in the periventricular white matter consistent with chronic small vessel ischemic change. The gl obes are intact. Left anterior maxillary sinus 8 mm mucosal retention cyst versus polyp is seen. Antr ostomy defects are noted from prior paranasal sinus surgery. There is atherosclerosis in the intracra nial vasculature. IMPRESSION: 1. No acute intracranial process. 2. Mild burden nonspecific white matter change, likely on the basis of chronic microangiopathy and ag e-related cerebral atrophy.
== END ==
LOC: RADCTMAIN 11:39
PROVIDERS: ATTEND Family Medicine
DX: R90.82 White matter disease, unspecified (principal); R51 Headache
CPT/HCPCS: 70450

== ENCOUNTER 2018-05-05 17:24 | Emergency (ER) | payer MEDICARE ==
[2018-05-05] MEDS ORDERED: ACETAMINOPHEN TAB 325 MG TAB PO STA (18:00)
--- NOTE | 2018-05-05 18:11 | ED ---
General Adult HPI - General Chief complaint: Extremity Problem,Nontraumatic Stated complaint: LEFT LEG/KNEE PAIN Time Seen by Provider: 05/05/18 17:44 Source: patient, RN notes reviewed Mode of arrival: wheelchair Limitations: no limitations - History of Present Illness Initial comments: 77 her old female presents to the emergency department for a chief complaint of left lower extremity pain times one week. Denies recent injury. Patient states she is to have surgery done in about 2 weeks. Patient states most of the pain is in her left knee but she does have new pain in her hip. Patient states pain in her hip is of burning pain that shoots down the leg and to the groin. Patient states she is also concerned for blood clot. Patient states her calf was painful a couple days ago but is somewhat better at this time. Patient has been taking Motrin for pain which has not been helping. Her doctor prescribed her [place] which made her sick so she has not been taking it. Patient has been ambulating but complains of pain in the left hip when doing so. Patient has no other complaints at this time including shortness of breath, chest pain, abdominal pain, nausea or vomiting, headache, or visual changes. - Related Data Home Medications Medication Instructions Recorded Confirmed Hydrochlorothiazide [Hydrodiuril] 25 mg PO DAILY 01/01/17 03/07/18 Albuterol Nebulized [Ventolin 2.5 mg INHALATION QID 09/25/17 03/07/18 Nebulized] Cholecalciferol (Vitamin D3) 2,000 unit PO HS 09/25/17 03/07/18 [Vitamin D3] Metoprolol Succinate [Toprol XL] 12.5 mg PO DAILY 09/25/17 03/07/18 amLODIPine [Norvasc] 5 mg PO DAILY 09/25/17 03/07/18 Ibuprofen [Motrin] 400 mg PO Q6HR PRN 11/16/17 03/07/18 Albuterol Inhaler [Ventolin Hfa 2 puff INHALATION Q6HR PRN 02/09/18 03/07/18 Inhaler] Budesonide-Formot 160-4.5 Mcg 2 puff INHALATION BID 02/09/18 03/07/18 [Symbicort 160-4.5 Mcg Inhaler] Loratadine 10 mg PO 1830 02/13/18 03/07/18 Allergies Allergy/AdvReac Type Severity Reaction Status Date / Time amoxicillin [From Augmentin] Allergy Unknown Verified 05/05/18 17:31 clavulanic acid Allergy Unknown Verified 05/05/18 17:31 [From Augmentin] moxifloxacin HCl Allergy Rash/Hives, Verified 05/05/18 17:31 [From Avelox] SWELLING nitrofurantoin Allergy Rash/Hives Verified 05/05/18 17:31 hydrocodone bitartrate AdvReac Nausea & Verified 05/05/18 17:31 [From Lortab] Vomiting simvastatin AdvReac muscle pain Verified 05/05/18 17:31 Ovztpcw-Qxd-Tnf Reductase AdvReac MUSCLE PAIN Verified 05/05/18 17:31 Inhibitor Review of Systems ROS Statement: Those systems with pertinent positive or pertinent negative responses have been documented in the HPI. ROS Other: All systems not noted in ROS Statement are negative. Past Medical History Past Medical History: Asthma, COPD, Hyperlipidemia, Hypertension, Osteoarthritis (OA), Pneumonia, Respiratory Disorder Additional Past Medical History / Comment(s): diverticulitis. History of Any Multi-Drug Resistant Organisms: None Reported Past Surgical History: Appendectomy, Bowel Resection, Cholecystectomy, Heart Catheterization, Orthopedic Surgery, Tubal Ligation Additional Past Surgical History / Comment(s): 11/11/15 bronchoscopy and lavage, bowel resection due to diverticulitis 2012, right knee arthroscopy, sinus surgery, carpal tunnel left wrist, colonoscopy. Past Anesthesia/Blood Transfusion Reactions: No Reported Reaction Past Psychological History: Anxiety Smoking Status: Former smoker Past Alcohol Use History: None Reported Past Drug Use History: None Reported - Past Family History Mother Family Medical History: Myocardial Infarction (MD) Additional Family Medical History / Comment(s): Mother of MD at age 65 yrs. Sister(s) Family Medical History: Cancer Additional Family Medical History / Comment(s): Twin sister had LUNG cancer. Father Family Medical History: Cancer Additional Family Medical History / Comment(s): Father had cancer in his neck. General Exam Limitations: no limitations General appearance: alert, in no apparent distress Head exam: Present: atraumatic, normocephalic, normal inspection Eye exam: Present: normal appearance. Absent: scleral icterus, conjunctival injection ENT exam: Present: normal exam, mucous membranes moist Neck exam: Present: normal inspection, full ROM. Absent: tenderness, meningismus, lymphadenopathy Respiratory exam: Present: normal lung sounds bilaterally. Absent: respiratory distress, wheezes, rales, rhonchi, stridor Cardiovascular Exam: Present: regular rate, normal rhythm, normal heart sounds. Absent: systolic murmur, diastolic murmur, rubs, gallop, clicks GI/Abdominal exam: Present: soft, normal bowel sounds. Absent: distended, tenderness, guarding, rebound, rigid Extremities exam: Present: full ROM (full ROM of the left knee including flexion and extension. Full flexion and extension of left hip with about 45 degrees abduction.), tenderness (tenderness to sciatic notch, lateral left hip, as well as knee. ), normal capillary refill (cap refill < 2 seconds, pedal pulse 2+.), calf tenderness (Mild Tenderness, no edema, erythema, or increased warmth in the left lower extremity.), other (sensation intact in LLE.). Absent : joint swelling (no swelling in the RLE) Back exam: Absent: vertebral tenderness (no lumbar tenderness) Neurological exam: Present: alert, oriented X3, CN II-XII intact, reflexes normal (patellar reflexes 2+). Absent: motor sensory deficit Psychiatric exam: Present: normal affect, normal mood Course Vital Signs 05/05/18 05/05/18 17:30 19:16 Temperature 97.8 F Pulse Rate 79 69 Respiratory 20 14 Rate Blood Pressure 169/77 177/81 O2 Sat by Pulse 96 93 L Oximetry Medical Decision Making - Medical Decision Making 77-year-old female with chronic left knee pain worse the past few days. Patient having surgery on the on the knee. Patient also has left hip pain because she has been walking differently because of the pain in her knee. Patient was given [place] by primary care but it caused her to be nauseous. Patient today would like to rule out DVT. Neurovascular intact in the left lower extremity. No swelling erythema or redness. Ultrasound negative for DVT. No acute fracture or dislocation evident in the pelvis or left hip. Moderate femoral acetabular arthropathy bilaterally. I did discuss with patient that these can be symptoms of sciatica and she has had in the past. Patient states that it may be that she does not want steroids as she is often on steroids for COPD. Discussed with patient alternating Motrin and Tylenol for pain. Patient is happy with this. She will contact the surgeon on Monday about increased pain. Patient ambulating and emergency department Patient is somewhat hypertensive in the emergency department, asymptomatic. She states she is due for her hypertensive medications and will go home and take them. Disposition Clinical Impression: Knee pain, chronic Disposition: HOME SELF-CARE Condition: Good Instructions: Knee Pain (ED) Additional Instructions: Please alternate Motrin and Tylenol every 3 hours for pain. Please monitor for worsening symptoms or return if these occur. Follow-up with primary care in 1- 2 days. Contact surgeon to let them know pain is increasing. Is patient prescribed a controlled substance at d/c from ED?: No Referrals: Neptali Ariza DO [Primary Care Provider] - 1-2 days Time of Disposition: 19:49
--- NOTE | 2018-05-05 18:51 | US ---
EXAMINATION TYPE: US venous doppler duplex LE LT DATE OF EXAM: 05/05/2018 6:39 PM COMPARISON: NONE CLINICAL HISTORY: Pain. Pt states left knee pain x 1 year, has recently gotten worse SIDE PERFORMED: Left TECHNIQUE: The lower extremity deep venous system is examined utilizing real time linear array sonog thania with graded compression, doppler sonography and color-flow sonography. VESSELS IMAGED: External Iliac Vein (EIV) Common Femoral Vein Deep Femoral Vein Greater Saphenous Vein * Femoral Vein Popliteal Vein Small Saphenous Vein * Proximal Calf Veins (* superficial vessels) Grayscale, color doppler, spectral doppler imaging performed of the deep veins of the left lower extr emity. There is normal flow, compressibility, vascular waveforms. Left Leg: Negative for DVT IMPRESSION: No sonographic evidence of deep venous thrombosis within the left lower extremity
--- NOTE | 2018-05-05 19:08 | XR ---
EXAMINATION TYPE: XR Hip LT and AP Pelvis DATE OF EXAM: 05/05/2018 COMPARISON: NONE HISTORY: Pelvic pain and left hip pain TECHNIQUE: A single AP view of the pelvis is obtained. Two views of the left hip are obtained. FINDINGS: There is no acute fracture/dislocation evident in the pelvis. The hip and sacroiliac join ts appear symmetric. The overlying soft tissue appears unremarkable. Two views of left hip show no acute fracture or dislocation. No focal lytic or sclerotic lesion seen in the proximal left femur. There is bilateral femoral acetabular arthropathy with acetabular roof s clerosis and small marginal osteophytes. The overlying soft tissue is unremarkable. Moderate multil evel degenerative changes of the lumbosacral junction are noted. IMPRESSION: There is no acute fracture or dislocation in the pelvis or left hip. Moderate femoral ac etabular arthropathy bilaterally.
[2018-05-05 19:55] VITALS: BP 186/80; PULSE 76; RESP 18; TEMP 98
== END 2018-05-05 19:58 | disposition home or self-care (01) ==
LOC: EC 17:24
DX: M25.562 Pain in left knee (principal); G89.29 Other chronic pain; M25.552 Pain in left hip; J44.9 Chronic obstructive pulmonary disease, unspecified; I10 Essential (primary) hypertension; E78.5 Hyperlipidemia, unspecified; M19.90 Unspecified osteoarthritis, unspecified site; F41.9 Anxiety disorder, unspecified; Z87.891 Personal history of nicotine dependence; Z79.51 Long term (current) use of inhaled steroids; Z79.899 Other long term (current) drug therapy; Z88.0 Allergy status to penicillin; Z88.1 Allergy status to other antibiotic agents; Z88.8 Allergy status to other drugs, medicaments and biological substances; Z95.818 Presence of other cardiac implants and grafts; Z98.890 Other specified postprocedural states
CPT/HCPCS: 73502; 99284

== ENCOUNTER → 2018-06-15 | Outpatient (CLI) | payer MEDICARE ==
--- NOTE | 2018-06-15 16:51 | US ---
EXAMINATION TYPE: US venous doppler duplex LE LT DATE OF EXAM: 06/15/2018 4:06 PM COMPARISON: NONE CLINICAL HISTORY: M25.562 Pain in left knee, M17.12 uni primary oa. Pain medial left knee at spider v eins and post arthroscopy SIDE PERFORMED: Left TECHNIQUE: The lower extremity deep venous system is examined utilizing real time linear array sonog thania with graded compression, doppler sonography and color-flow sonography. VESSELS IMAGED: Common Femoral Vein Deep Femoral Vein Greater Saphenous Vein * Femoral Vein Popliteal Vein Small Saphenous Vein * Proximal Calf Veins (* superficial vessels) Left Leg: Negative for DVT and Negative for SVT and patient's area of pain. IMPRESSION: 1. Left lower extremity ultrasound negative for deep venous thrombosis.
== END | disposition home or self-care (01) ==
LOC: RADUSWWP 15:36
PROVIDERS: ATTEND Orthopaedic Surgery
DX: M25.562 Pain in left knee (principal)

== ENCOUNTER 2018-09-29 07:59 | Observation (INO) | payer MEDICARE ==
[2018-09-29] MEDS ORDERED: AZITHROMYCIN 500 MG in SODIUM CHLORIDE 0.9% 250 ML IVPB STA (08:20)
[2018-09-29] MEDS ORDERED: IPRATROPIUM 0.5 MG/2.5 ML NEBU INHALATION STA (08:20)
[2018-09-29] MEDS ORDERED: methylPREDNISolone SOD SUCCI 125 MG/2 ML VIAL IV STA (08:20)
[2018-09-29] MEDS ORDERED: ALBUTEROL NEBULIZED 2.5 MG/3 ML INHALATION STA (08:20)
--- NOTE | 2018-09-29 08:35 | ED ---
General Adult HPI - General Chief complaint: Shortness of Breath Stated complaint: COPD, ELIAS Time Seen by Provider: 09/29/18 08:15 Source: patient, RN notes reviewed, old records reviewed Mode of arrival: ambulatory Limitations: no limitations - History of Present Illness Initial comments: 77-year-old female presenting for evaluation of cough and dyspnea. Patient has history of COPD. Remote history of tobacco use. She said 2 weeks of progressive dyspnea. Cough nonproductive. She was placed on both antibiotics and steroids by her primary care physician for the past several days. She is felt improved. She does report fever at home which is improved with Tylenol administration. Denies chest pain. Denies lower extremity pain or swelling. She has been taking her albuterol at home every several hours. - Related Data Home Medications Medication Instructions Recorded Confirmed RX: Hydrochlorothiazide 25 mg PO DAILY 01/01/17 09/29/18 [Hydrodiuril] RX: Albuterol Nebulized [Ventolin 2.5 mg INHALATION RT-QID 09/25/17 09/29/18 Nebulized] RX: Cholecalciferol (Vitamin D3) 2,000 unit PO HS 09/25/17 09/29/18 [Vitamin D3] RX: Metoprolol Succinate [Toprol 12.5 mg PO DAILY 09/25/17 09/29/18 XL] RX: amLODIPine [Norvasc] 5 mg PO DAILY 09/25/17 09/29/18 RX: Albuterol Inhaler [Ventolin 2 puff INHALATION RT-Q6H PRN 02/09/18 09/29/18 Hfa Inhaler] RX: Budesonide-Formot 160-4.5 Mcg 2 puff INHALATION RT-BID 02/09/18 09/29/18 [Symbicort 160-4.5 Mcg Inhaler] Atorvastatin [Lipitor] 10 mg PO HS 09/29/18 09/29/18 Gabapentin [Neurontin] 100 mg PO HS 09/29/18 09/29/18 RX: predniSONE See Taper PO DAILY 09/29/18 09/29/18 Sulfamethox-Tmp 800-160Mg [Bactrim 1 tab PO Q12HR 09/29/18 09/29/18 DS 800-160 mg] Allergies Allergy/AdvReac Type Severity Reaction Status Date / Time amoxicillin [From Augmentin] Allergy Unknown Verified 09/29/18 08:31 clavulanic acid Allergy Unknown Verified 09/29/18 08:31 [From Augmentin] moxifloxacin HCl Allergy Rash/Hives, Verified 09/29/18 08:31 [From Avelox] SWELLING nitrofurantoin Allergy Rash/Hives Verified 09/29/18 08:31 hydrocodone bitartrate AdvReac Nausea & Verified 09/29/18 08:31 [From Lortab] Vomiting simvastatin AdvReac muscle pain Verified 09/29/18 08:31 [id number]-Bcz Reductase AdvReac MUSCLE PAIN Verified 09/29/18 08:31 Inhibitor Review of Systems ROS Statement: Those systems with pertinent positive or pertinent negative responses have been documented in the HPI. ROS Other: All systems not noted in ROS Statement are negative. Past Medical History Past Medical History: Asthma, COPD, Hyperlipidemia, Hypertension, Osteoarthritis (OA), Pneumonia, Respiratory Disorder Additional Past Medical History / Comment(s): diverticulitis. History of Any Multi-Drug Resistant Organisms: None Reported Past Surgical History: Appendectomy, Bowel Resection, Cholecystectomy, Heart Catheterization, Orthopedic Surgery, Tubal Ligation Additional Past Surgical History / Comment(s): 11/11/15 bronchoscopy and lavage, bowel resection due to diverticulitis 2012, right knee arthroscopy, sinus surgery, carpal tunnel left wrist, colonoscopy. Past Anesthesia/Blood Transfusion Reactions: No Reported Reaction Past Psychological History: Anxiety Smoking Status: Former smoker Past Alcohol Use History: None Reported Past Drug Use History: None Reported - Past Family History Mother Family Medical History: Myocardial Infarction (IA) Additional Family Medical History / Comment(s): Mother of IA at age 65 yrs. Sister(s) Family Medical History: Cancer Additional Family Medical History / Comment(s): Twin sister had LUNG cancer. Father Family Medical History: Cancer Additional Family Medical History / Comment(s): Father had cancer in his neck. General Exam Limitations: no limitations General appearance: alert, in distress (Moderate respiratory distress) Head exam: Present: atraumatic, normocephalic Eye exam: Present: normal appearance. Absent: PERRL, EOMI Neck exam: Present: normal inspection. Absent: tenderness, meningismus Respiratory exam: Present: respiratory distress, wheezes, decreased breath sounds Cardiovascular Exam: Present: regular rate, normal rhythm GI/Abdominal exam: Present: soft. Absent: distended, tenderness, guarding Extremities exam: Present: normal inspection, normal capillary refill. Absent: pedal edema, calf tenderness Neurological exam: Present: alert, oriented X3, CN II-XII intact. Absent: motor sensory deficit Psychiatric exam: Present: normal affect, normal mood Course Vital Signs 09/29/18 09/29/18 09/29/18 08:06 08:34 09:04 Temperature 97.5 F L Pulse Rate 98 77 75 Respiratory 32 H 18 Rate Blood Pressure 176/81 129/68 O2 Sat by Pulse 95 96 Oximetry 09/29/18 09/29/18 09:14 09:27 Temperature 97.9 F Pulse Rate 77 74 Respiratory 18 Rate Blood Pressure 129/68 O2 Sat by Pulse 96 Oximetry EKG Findings - EKG Comments: EKG Findings:: EKG: Sinus rhythm with PVC, rate of 78 NH interval 144, QRS duration 92, QTC 45, no ST segment elevation or depression Medical Decision Making - Medical Decision Making 77 -year-old female with cough and dyspnea. History of COPD. Uses home oxygen as needed. She has been on antibiotics and steroids as an outpatient has failed to improve. Chest x-ray obtained, negative for focal pneumonia, there is hyperinflation consistent with COPD. Patient has normal CBC, normal CMP, troponin negative, EKG nonischemic. Patient will be admitted for further treatment of COPD exacerbation. Case discussed with the admitting physician. Pulmonology placed on consult. - Lab Data Result diagrams: 09/29/18 08:21 09/29/18 08:21 Lab Results 09/29/18 09/29/18 09/29/18 Range/Units 08:21 08:21 08:21 WBC 8.4 (3.8-10.6) k/uL RBC 5.03 (3.80-5.40) m/uL Hgb 14.1 (11.4-16.0) gm/dL Hct 44.7 (34.0-46.0) % MCV 88.9 (80.0-100.0) fL MCH 28.0 (25.0-35.0) pg MCHC 31.6 (31.0-37.0) g/dL RDW 15.3 (11.5-15.5) % Plt Count 314 (150-450) k/uL Neutrophils % 60 % Lymphocytes % 27 % Monocytes % 7 % Eosinophils % 2 % Basophils % 1 % Neutrophils # 5.1 (1.3-7.7) k/uL Lymphocytes # 2.3 (1.0-4.8) k/uL Monocytes # 0.6 (0-1.0) k/uL Eosinophils # 0.1 (0-0.7) k/uL Basophils # 0.0 (0-0.2) k/uL PT (9.0-12.0) sec INR (<1.2) APTT (22.0-30.0) sec Sodium 141 (137-145) mmol/L Potassium 4.1 (3.5-5.1) mmol/L Chloride 107 (98-107) mmol/L Carbon Dioxide 25 (22-30) mmol/L Anion Gap 9 mmol/L BUN 19 H (7-17) mg/dL Creatinine 0.70 (0.52-1.04) mg/dL Est GFR (CKD-EPI)AfAm >90 (>60 ml/min/1.73 sqM) Est GFR (CKD-EPI)NonAf 84 (>60 ml/min/1.73 sqM) Glucose 80 (74-99) mg/dL Calcium 9.9 (8.4-10.2) mg/dL Magnesium 2.2 (1.6-2.3) mg/dL Total Bilirubin 0.4 (0.2-1.3) mg/dL AST 29 (14-36) U/L ALT 37 (9-52) U/L Alkaline Phosphatase 67 (38-126) U/L Total Creatine Kinase 121 (30-135) U/L CK-MB (CK-2) 3.4 H (0.0-2.4) ng/mL CK-MB (CK-2) Rel Index 2.8 Troponin I <0.012 (0.000-0.034) ng/mL NT-Pro-B Natriuret Pep pg/mL Total Protein 7.0 (6.3-8.2) g/dL Albumin 4.2 (3.5-5.0) g/dL Influenza Type A RNA (Not Detectd) Influenza Type B (PCR) (Not Detectd) 09/29/18 09/29/18 09/29/18 Range/Units 08:21 08:21 08:29 WBC (3.8-10.6) k/uL RBC (3.80-5.40) m/uL Hgb (11.4-16.0) gm/dL Hct (34.0-46.0) % MCV (80.0-100.0) fL MCH (25.0-35.0) pg MCHC (31.0-37.0) g/dL RDW (11.5-15.5) % Plt Count (150-450) k/uL Neutrophils % % Lymphocytes % % Monocytes % % Eosinophils % % Basophils % % Neutrophils # (1.3-7.7) k/uL Lymphocytes # (1.0-4.8) k/uL Monocytes # (0-1.0) k/uL Eosinophils # (0-0.7) k/uL Basophils # (0-0.2) k/uL PT 9.6 (9.0-12.0) sec INR 0.9 (<1.2) APTT 21.1 L (22.0-30.0) sec Sodium (137-145) mmol/L Potassium (3.5-5.1) mmol/L Chloride (98-107) mmol/L Carbon Dioxide (22-30) mmol/L Anion Gap mmol/L BUN (7-17) mg/dL Creatinine (0.52-1.04) mg/dL Est GFR (CKD-EPI)AfAm (>60 ml/min/1.73 sqM) Est GFR (CKD-EPI)NonAf (>60 ml/min/1.73 sqM) Glucose (74-99) mg/dL Calcium (8.4-10.2) mg/dL Magnesium (1.6-2.3) mg/dL Total Bilirubin (0.2-1.3) mg/dL AST (14-36) U/L ALT (9-52) U/L Alkaline Phosphatase (38-126) U/L Total Creatine Kinase (30-135) U/L CK-MB (CK-2) (0.0-2.4) ng/mL CK-MB (CK-2) Rel Index Troponin I (0.000-0.034) ng/mL NT-Pro-B Natriuret Pep 524 pg/mL Total Protein (6.3-8.2) g/dL Albumin (3.5-5.0) g/dL Influenza Type A RNA Not Detected (Not Detectd) Influenza Type B (PCR) Not Detected (Not Detectd) Disposition Clinical Impression: COPD (chronic obstructive pulmonary disease) with emphysema, Acute exacerbation of chronic obstructive airways disease Disposition: ADMITTED IP TO THIS HOSP Condition: Stable Is patient prescribed a controlled substance at d/c from ED?: No Referrals: Neptali Ariza DO [Primary Care Provider] - 1-2 days Decision to Admit Reason: Admit from EC Decision Date: 09/29/18 Decision Time: 09:31
[2018-09-29 08:49] LABS: Basophils % (A) 1 %; Eosinophils # (A) 0.1 k/uL (0-0.7); Eosinophils % (A) 2 %; HCT 44.7 % (34.0-46.0); HGB 14.1 gm/dL (11.4-16.0); Lymphocytes # (A) 2.3 k/uL (1.0-4.8); Lymphocytes % (A) 27 %; MCHC 31.6 g/dL (31.0-37.0); MCV 88.9 fL (80.0-100.0); Monocytes # (A) 0.6 k/uL (0-1.0); Monocytes % (A) 7 %; Neutrophils # (A) 5.1 k/uL (1.3-7.7); Neutrophils % (A) 60 %; Platelet Count 314 k/uL (150-450); RBC 5.03 m/uL (3.80-5.40); RDW 15.3 % (11.5-15.5); WBC 8.4 k/uL (3.8-10.6)
--- NOTE | 2018-09-29 08:50 | XR ---
EXAMINATION TYPE: XR chest 2V DATE OF EXAM: 09/29/2018 COMPARISON: 11/16/2017 HISTORY: 77-year-old female difficulty breathing and shortness of breath TECHNIQUE: PA and lateral views FINDINGS: Heart normal size. Mild elongation thoracic aorta. Atherosclerotic arch calcifications. Relative uppe r lobe lucencies. Diffuse interstitial changes with peribronchial cuffing mid and lower lungs. Hyperi nflation with flattening of the hemidiaphragms. No pleural effusion. No patience consolidation. IMPRESSION: COPD. Prominent interstitial changes mid and lower lungs could represent superimposed acute bronchiti s or asthma. No focal infiltrate to suggest pneumonia.
[2018-09-29 09:00] LABS: Anion Gap 9 mmol/L; Blood Urea Nitrogen 19 mg/dL (7-17); Carbon Dioxide 25 mmol/L (22-30); Chloride 107 mmol/L (98-107); Glucose 80 mg/dL (74-99); Potassium 4.1 mmol/L (3.5-5.1); Sodium 141 mmol/L (137-145)
[2018-09-29 09:01] LABS: ALT 37 U/L (9-52); AST 29 U/L (14-36); Albumin 4.2 g/dL (3.5-5.0); Alkaline Phosphatase 67 U/L (38-126); Calcium 9.9 mg/dL (8.4-10.2); Magnesium 2.2 mg/dL (1.6-2.3); Total Bilirubin 0.4 mg/dL (0.2-1.3)
[2018-09-29 09:04] LABS: INR 0.9 (<1.2); Prothrombin Time 9.6 sec (9.0-12.0)
[2018-09-29 09:10] LABS: Partial Thromboplastin Time 21.1 sec (22.0-30.0)
[2018-09-29 09:11] LABS: Creatine Kinase 121 U/L (30-135)
[2018-09-29 09:25] LABS: Creatine Kinase MB 3.4 ng/mL (0.0-2.4); Troponin I <0.012 ng/mL (0.000-0.034)
[2018-09-29] MEDS ORDERED: IPRATROPIUM-ALBUTEROL 3 ML NEB INHALATION PRN (09:28)
[2018-09-29] MEDS ORDERED: ALBUTEROL NEBULIZED 2.5 MG/3 ML INHALATION PRN (09:29)
[2018-09-29 11:27] VITALS: BMI 26.4
[2018-09-29] MEDS: IPRATROPIUM-ALBUTEROL 3 ML NEB INHALATION SCH ×3 (11:37→19:46)
[2018-09-29 12:13] LABS: Glucose,Whole Blood 186 mg/dL (75-99)
[2018-09-29] MEDS: methylPREDNISolone SOD SUCCI 125 MG/2 ML VIAL IV SCH ×2 (13:26→17:21)
[2018-09-29] MEDS: INSULIN ASPART 100 UNIT/ML 1 ML 10 ML VIAL SQ SCH ×3 (13:27→21:38)
[2018-09-29] MEDS: METOPROLOL SUCCINATE (ER) 25 MG TAB.ER.24H PO SCH (14:54)
[2018-09-29] MEDS: ENOXAPARIN 40 MG/0.4 ML SYRINGE SQ SCH (14:54)
[2018-09-29] MEDS: amLODIPine 5 MG TAB PO SCH (14:54)
[2018-09-29 16:59] LABS: Glucose,Whole Blood 174 mg/dL (75-99)
--- NOTE | 2018-09-29 19:21 | CONS ---
CONSULTATION DATE OF SERVICE: 09/29/2018. This is a 77-year-old female well known to me. She came into the emergency room with a week's worth of increasing shortness of breath and chest congestion. Apparently seen her primary doctor in the outpatient setting. Given some antibiotics and some steroids. She went back and saw the same physician again and was again treated similarly. Despite that, she still had significant worsening shortness of breath, cough, wheezing, phlegm production. For that matter, she came into the emergency room where she was evaluated and admitted. The patient does not look bad. In fact, to me she looks pretty much at her baseline. She states she does feel better. Denies any fever or chills. Not coughing up any blood. No chest pain or chest discomfort. HOME MEDICATIONS: Include HydroDIURIL, albuterol, vitamin D3, metoprolol, amlodipine, albuterol inhaler, Symbicort, Lipitor, Neurontin, prednisone with a taper given to her by her primary doctor and Bactrim. ALLERGIES: INCLUDE AMOXICILLIN/AUGMENTIN, MOXIFLOXACIN, NITROFURANTOIN, LORTAB, SIMVASTATIN, STATINS. MEDICAL HISTORY: Positive for COPD, hyperlipidemia, hypertension, DJD, pneumonia, diverticular disease. SURGICAL HISTORY: Includes among other things appendectomy, bowel resection, cholecystectomy, heart catheterization, orthopedic procedures, tubal ligations, multiple bronchoscopies and sinus surgery. She has also had carpal tunnel release. SOCIAL HISTORY: Positive for previous heavy tobacco use. She denies any illicit drug use or alcohol use. FAMILY HISTORY: Positive for myocardial infarction and lung cancer. REVIEW OF SYSTEMS: CONSTITUTIONAL: Negative. NEUROLOGIC: Negative. HEENT negative. CARDIOVASCULAR: Negative. PULMONARY: Shortness of breath, chest tightness, wheezing cough, chest congestion, phlegm production. GI/ negative. Rheumatologic/hematologic: Negative. ENDOCRINOLOGIC AND DERMATOLOGIC: Negative. PHYSICAL EXAMINATION: Current vital signs good. Temperature 97.7, heart rate 78, respiratory rate 16, blood pressure 127/66, mean 88, saturations are 97% on 3 L. She looks pretty much at her baseline. I see her frequently in the office. HEENT examination is grossly unremarkable. Mucous membranes are moist. No oral lesions. Nasal O2 in place. NECK: Supple. Full range of motion. No adenopathy. No thyromegaly. Neck veins are flat. Cardiovascular examination reveals regular rhythm rate. Heart rate in the 70s. S1, S2 normal. No S3, S4, murmur. LUNGS: Revealed some mild respiratory rhonchi and wheezes. Breath sounds are diminished throughout. Breath sounds equal bilaterally. There is slight prolongation on forced maneuver. ABDOMEN: Soft, bowel sounds are heard. Extremities are intact. No cyanosis, clubbing, or edema. Skin without rash. Neurologic examination is brief but nonfocal. LAB DATA: Reviewed. CBC is completely normal. PT/INR normal. PTT is 21.1. Sodium, potassium, chloride, CO2 all normal. Anion gap 9, BUN and creatinine were 19 and 0.7. Influenza studies are negative. Microbiology studies are negative. Chest x-ray from September 29 shows changes of chronic obstructive pulmonary disease. Some mild interstitial changes consistent with either interstitial pneumonitis and/or bronchitis. Medications are reviewed. The patient is on Pulmicort, formoterol, Solu-Medrol DuoNeb, and Zithromax. ASSESSMENT: 1. Chronic obstructive pulmonary disease exacerbation complicated by purulent tracheobronchitis. No evidence of patience pneumonia. 2. History of hypertension. 3. Vitamin D deficiency. 4. History of hyperlipidemia. 5. Previous history of heavy tobacco use. 6. Osteoarthritis. 7. History of pneumonia. 8. History of diverticular disease, status post bowel resection. PLAN: The patient's medications are reviewed. Everything seems appropriate. The patient could likely be discharged home in 24-48 hours. We will continue to follow. She remains on short-acting beta agonist, short-acting muscarinic antagonist, long-acting beta agonist, inhaled corticosteroids, systemic corticosteroids and oral antibiotics. Chest x-ray reviewed. No infiltrate noted on chest x-ray. We will continue to follow. MMODL / IJN: [id number] /
[2018-09-29] MEDS: BUDESONIDE 1 MG/2 ML NEBU INHALATION SCH (19:46)
[2018-09-29] MEDS: FORMOTEROL FUMARATE 20 MCG/2 ML NEBU INHALATION SCH (19:46)
[2018-09-29] MEDS ORDERED: ATORVASTATIN 10 MG TAB PO SCH (21:00)
[2018-09-29] MEDS ORDERED: GABAPENTIN 100 MG CAP PO SCH (21:00)
[2018-09-29 21:39] LABS: Glucose,Whole Blood 227 mg/dL (75-99)
--- NOTE | 2018-09-29 23:02 | HP ---
HISTORY AND PHYSICAL DATE OF ADMISSION: 09/29/2018. DATE OF SERVICE: 09/29/2018. PRESENTING COMPLAINT: Short of breath, wheezing, cough. HISTORY OF PRESENTING COMPLAINT: This is a 77-year-old patient of Dr. Ariza's whose etcher apprentice is Dr. Sarabia. Chronic stable medical conditions include hyperlipidemia, hypertension, osteoarthritis, GERD. From September 08, that is about 20 days ago, patient started off with increasing short of breath, occasional cough. No fever and chills. Around September 12 she was given some medication. She got a little bit better, then symptoms still persisted and she was further given Bactrim, prednisone, still having wheezing with cough and shortness of breath. Some sputum production. Decided to present to the ER. Admitted for the same. After getting nebulized bronchodilators and steroids she is feeling a bit better. Appetite has started to machine pecan picker. REVIEW OF SYSTEMS: CONSTITUTIONAL: Tired. HEENT: None. RESPIRATORY: As above. CARDIOVASCULAR: None. GASTROINTESTINAL: Heartburn. GENITOURINARY: None. MUSCULOSKELETAL: Arthritic pain in joints. DERMATOLOGICAL, HEMATOLOGIC, LYMPHATIC: None. PSYCHIATRY: None. NEUROLOGIC: None. PAST MEDICAL HISTORY: COPD, hyperlipidemia, hypertension, osteoarthritis, diverticulitis. PAST SURGICAL HISTORY: Appendectomy, bowel resection, cholecystectomy, cardiac catheterization, bowel resection due to diverticulitis in 2012, bilateral knee arthroscopy, sinus surgery, carpal tunnel, left wrist surgery. SOCIAL HISTORY: Lives by herself. Smoked for about 40 years, stopped in 1997. Denies alcohol. FAMILY HISTORY: Lung cancer. HOME MEDICATIONS: 1. Prednisone taper. 2. Norvasc 5 mg a day. 3. Bactrim DS 1 tablet every 12 hours. 4. Toprol-XL 12.5 p.o. daily. 5. Hydrochlorothiazide 25 mg p.o. daily. 6. Neurontin 100 mg p.o. at bedtime. 7. Vitamin D3, 2000 units p.o. at bedtime. 8. Symbicort 160/4.5, 2 puffs b.i.d. 9. Lipitor 10 mg p.o. at bedtime. 10.Ventolin 2.5 p.o. q.i.d. ALLERGIES: AMOXICILLIN, AUGMENTIN, NITROFURANTOIN, SIMVASTATIN. PHYSICAL EXAMINATION: VITAL SIGNS: Vital signs on presentation, temp 97.5, pulse 98, respirations 22, blood pressure 126/81, pulse ox 95% on room air. Repeat blood pressure 120/68. GENERAL APPEARANCE: Average built, sitting up, not in distress. EYES: Pupils equal. Conjunctivae normal. HEENT: External nose and ears normal. Oral cavity normal. NECK: JVD not raised. Mass not palpable. LUNGS: Decreased breath sounds. Some wheezing. CARDIOVASCULAR: 1st and 2nd heart sounds. No edema. ABDOMEN: Soft, nontender. Liver and spleen not palpable. LYMPHATICS: No lymph nodes palpable in the neck or axillae. PSYCHIATRY: Alert and oriented x3. Mood and affect normal. NEUROLOGIC: Pupils equal. Cranial nerves grossly intact. Power and sensation grossly intact. MUSCULOSKELETAL: Evidence of osteoarthritis, especially in the hands. INVESTIGATIONS: White count 8.1, hemoglobin 14.1, potassium 4.1. Accu-Cheks are noted. Influenza screen is negative. EKG tracing personally reviewed by me shows normal sinus rhythm. Chest x-ray film personally reviewed by me shows hyperinflation, little bit of prominence in the pulmonary artery. No obvious infiltrate. Possible interstitial markings. ASSESSMENT: 1. Acute chronic obstructive pulmonary disease exacerbation in an ex-smoker, possibly from acute tracheobronchitis. 2. Hyperlipidemia. 3. Essential hypertension. 4. Primary osteoarthritis. 5. Gastroesophageal reflux disease. PLAN: Patient is started on bronchodilators and IV steroids. Home medications are resumed. The patient is also on Zithromax. Care was discussed with the patient and questions were answered. I encouraged the patient to ambulate. MMODL / IJN: [id number] /
[2018-09-30] MEDS: methylPREDNISolone SOD SUCCI 125 MG/2 ML VIAL IV SCH ×3 (00:38→12:07)
[2018-09-30 06:17] VITALS: BP 148/82; RESP 20; TEMP 98.3
[2018-09-30 07:45] LABS: Glucose,Whole Blood 138 mg/dL (75-99)
[2018-09-30] MEDS: IPRATROPIUM-ALBUTEROL 3 ML NEB INHALATION SCH ×2 (08:44→12:09)
[2018-09-30] MEDS: FORMOTEROL FUMARATE 20 MCG/2 ML NEBU INHALATION SCH (08:44)
[2018-09-30] MEDS: BUDESONIDE 1 MG/2 ML NEBU INHALATION SCH (08:44)
[2018-09-30] MEDS: METOPROLOL SUCCINATE (ER) 25 MG TAB.ER.24H PO SCH (08:49)
[2018-09-30] MEDS: amLODIPine 5 MG TAB PO SCH (08:50)
[2018-09-30] MEDS: ENOXAPARIN 40 MG/0.4 ML SYRINGE SQ SCH (08:50)
[2018-09-30] MEDS: INSULIN ASPART 100 UNIT/ML 1 ML 10 ML VIAL SQ SCH ×2 (08:53→11:57)
[2018-09-30] MEDS ORDERED: AZITHROMYCIN 500 MG TAB PO SCH (09:00)
--- NOTE | 2018-09-30 10:47 | P.PN ---
Subjective Progress Note Date: 09/30/18 Principal diagnosis: Acute exacerbation of chronic obstructive pulmonary disease and ongoing tracheobronchitis This is a 77-year-old white female patient of Dr. Ariza, who was admitted to the hospital on 09/29/2018 for complaints of shortness of breath and chest congestion. Patient was treated on an outpatient basis with antibiotics and oral steroids, however she failed to improve, and patient ended up coming to the emergency room for further treatment. Patient was started on IV Solu-Medrol , antibiotics, nebulized bronchodilators, and she is improving. This was a mild exacerbation of her COPD. On today's exam patient has a few scattered end expiratory wheezes, but good air entry bilaterally, breathing easier. No worsening dyspnea, no chest congestion, on treatment as per nasal cannula her pulse ox is 94%, she is afebrile. Influenza was not detected. Patient is on a combination of Zithromax, IV steroids, Pulmicort, Perforomist, DuoNeb nebulized treatments, and ambulating in the room, tolerating activity well, she is requesting to go home today. From pulmonary perspective patient is stable for discharge home today. Objective - Vital Signs Vital signs: Vital Signs Temp 98.3 F 09/30/18 06:16 Pulse 96 09/30/18 09:07 Resp 20 09/30/18 06:16 BP 148/82 09/30/18 06:16 Pulse Ox 94 L 09/30/18 06:16 Intake & Output 09/29/18 09/30/18 09/30/18 18:59 06:59 18:59 Intake Total 1800 480 Balance 1800 480 Weight 67.58 kg Intake: Oral 1800 480 Other: # Voids 2 1 - Exam GENERAL EXAM: Alert, active, comfortable in no apparent distress. HEAD: Normocephalic/atraumatic. EYES: Normal reaction of pupils, equal size. Conjunctiva pink, sclera white. NOSE: Clear with pink turbinates. THROAT: No erythema or exudates. NECK: No masses, no JVD, no thyroid enlargement, no adenopathy. CHEST: No chest wall deformity. Symmetrical expansion. LUNGS: Equal air entry with with a few scattered end expiratory wheezes CVS: Regular rate and rhythm, normal S1 and S2, no gallops, no murmurs, no rubs ABDOMEN: Soft, nontender. No hepatosplenomegaly, normal bowel sounds, no guarding or rigidity. EXTREMITIES: No clubbing, no edema, no cyanosis, 2+ pulses and upper and lower extremities. MUSCULOSKELETAL: Muscle strength and tone normal. SPINE: No scoliosis or deformity SKIN: No rashes CENTRAL NERVOUS SYSTEM: Alert and oriented -3. No focal deficits, tone is normal in all 4 extremities. PSYCHIATRIC: Alert and oriented -3. Appropriate affect. Intact judgment and insight. - Labs CBC & Chem 7: 09/29/18 08:21 09/29/18 08:21 Labs: Abnormal Lab Results - Last 24 Hours (Table) 09/29/18 09/29/18 09/29/18 Range/Units 12:07 16:56 21:27 POC Glucose (mg/dL) 186 H 174 H 227 H (75-99) mg/dL 09/30/18 Range/Units 07:31 POC Glucose (mg/dL) 138 H (75-99) mg/dL Assessment and Plan Plan: Assessment: #1. Acute exacerbation of chronic obstructive pulmonary disease, but she by purulent tracheobronchitis, no evidence of patience pneumonia, with failure of outpatient treatment #2. Hypertension #3. D deficiency #4. Hyperlipidemia #5. History of heavy tobacco use, currently in remission #6. Osteoarthritis #7. Previous history of pneumonia #8. Diverticular disease status post bowel resection Plan: Patient is stable for discharge home today, she is improving, this was a mild exacerbation of her COPD, responded well to inpatient treatment, she is afebrile , no worsening dyspnea, no acute complaints, uneventful night. Vital signs are stable, stable for discharge home today follow-up with Dr. Sarabia in the office in 7-10 days. Recent has Bactrim and prednisone taper at home, she can continue with her nebulized bronchodilators I performed a history & physical examination of the patient and discussed their management with my nurse practitioner, Lor Ortiz. I reviewed the nurse practitioner's note and agree with the documented findings and plan of care. Lung sounds are positive for a few scattered wheezes. The findings and the impression was discussed with the patient. I attest to the documentation by the nurse practitioner. Time with Patient: Less than 30
[2018-09-30 12:07] LABS: Glucose,Whole Blood 111 mg/dL (75-99)
[2018-09-30 12:21] VITALS: PULSE 88
--- NOTE | 2018-10-01 07:50 | DS ---
DISCHARGE SUMMARY DATE OF ADMISSION: 09/29/2018 DATE OF DISCHARGE: 09/30/2018 FINAL DIAGNOSES: 1. Acute chronic obstructive pulmonary disease exacerbation, possibly from acute tracheobronchitis. 2. Hyperlipidemia. 3. Essential hypertension. 4. Primary osteoarthritis. 5. Gastroesophageal reflux disease. 6. Patient an ex-smoker. HOSPITAL COURSE: This patient presented with short of breath, wheezing, cough, felt to be acute tracheobronchitis with COPD exacerbation. Given bronchodilators, steroids to which she responded well. The patient was taking Bactrim at home. Seen by Dr. Sarabia today. Cleared for discharge. Patient is very keen to go home. Overall feeling better. PHYSICAL EXAMINATION: On examination, afebrile, pulse 68, respiration 20, blood pressure 148/82, pulse ox 94% on 3 L. LUNGS: Fair air entry. Minimal wheezing. DISCHARGE MEDICATIONS: 1. Hydrochlorothiazide 25 mg a day. 2. Ventolin nebulizer 2.5 q.i.d. 3. Vitamin D3, 2000 units p.o. q.h.s. 4. Toprol XL 12.5 p.o. daily. 5. Norvasc 5 mg a day. 6. Ventolin HFA 2 puffs q.6 p.r.n. 7. Symbicort 160/4.5 two puffs b.i.d. 8. Lipitor 10 mg q.h.s. 9. Neurontin 100 mg q.h.s. 10.Bactrim DS 1 tablet q.12. 11.Prednisone taper. Follow up with Dr. Sarabia in [address] Ariza in 1 week. MMODL / IJN: [id number] /
== END 2018-09-30 13:50 | disposition home or self-care (01) ==
LOC: EC 07:59 → 4MS4W 09:28
PROVIDERS: ADMIT Hospitalist; ATTEND Hospitalist
DX: J44.0 Chronic obstructive pulmonary disease with (acute) lower respiratory infection (principal); J44.1 Chronic obstructive pulmonary disease with (acute) exacerbation; J20.9 Acute bronchitis, unspecified; I10 Essential (primary) hypertension; E78.5 Hyperlipidemia, unspecified; Z87.01 Personal history of pneumonia (recurrent); K21.9 Gastro-esophageal reflux disease without esophagitis; Z87.891 Personal history of nicotine dependence; Z90.49 Acquired absence of other specified parts of digestive tract; Z80.1 Family history of malignant neoplasm of trachea, bronchus and lung; Z82.49 Family history of ischemic heart disease and other diseases of the circulatory system; M19.91 Primary osteoarthritis, unspecified site; Z87.19 Personal history of other diseases of the digestive system; E55.9 Vitamin D deficiency, unspecified; Z79.51 Long term (current) use of inhaled steroids; Z79.899 Other long term (current) drug therapy; Z88.1 Allergy status to other antibiotic agents; Z88.5 Allergy status to narcotic agent; Z88.0 Allergy status to penicillin; Z88.8 Allergy status to other drugs, medicaments and biological substances
CPT/HCPCS: 96376 ×2; 96372 ×2; 96365; 96375; 99285; 36415; 94640 ×4; 93005; 83880; 80053; 82550; 82553; 83735; 84484; 85025; 85610; 85730; 87040; 87502; 83036; 71046; G0378 ×2; J2930 ×2; J0456; J1650 ×2

== ENCOUNTER 2018-10-18 10:32 | Day surgery (SDC) | payer MEDICARE ==
[2018-10-17 12:00] VITALS: BMI 26.0
[~2018-10-18 10:32] MED LIST changes: +ALBUTEROL NEB (CONC) 2.5 MG/0.5 ML INHALATION ONE; +ATROPINE SULFATE 0.4 MG/ML 1 ML VIAL IM ONE; +LACTATED RINGERS 1,000 ML IV ONE; +LACTATED RINGERS 1,000 ML IV SCH; +LIDOCAINE 1% 20 ML VIAL (10MG/ML) FOR IV START INTRADERMA PRN; +LIDOCAINE HCL/PF 20 MG/ML ML INHALATION ONE; +LIDOCAINE VISCOUS 2% 15 ML CUP MUCOUS MEM ONE; -SODIUM CHLORIDE 0.9% 500 ML in EMPTY BAG 1 BAG IV PRN; -ZOLEDRONIC ACID 5 MG in SODIUM CHLORIDE 0.9% 100 ML IV ONE
[2018-10-18 11:01] VITALS: RESP 16; TEMP 97.9
[2018-10-18] MEDS ORDERED: PROPOFOL 10 MG/ML 20 ML VIAL IV ONE (11:56)
[2018-10-18] MEDS ORDERED: fentaNYL (PF) 50 MCG/ML 2 ML AMP ONE (11:56)
[2018-10-18] MEDS ORDERED: KETAMINE 10 MG/ML 20 ML VIAL ONE (11:56)
[2018-10-18] MEDS ORDERED: LIDOCAINE 1% INJ 10MG/ML (20 ML MDV) ONE (11:56)
[2018-10-18] MEDS ORDERED: MIDAZOLAM 2 MG/2 ML VIAL ONE (11:56)
[2018-10-18] MEDS ORDERED: LIDOCAINE 2% INJ 20 MG/ML INTRATRACH ONE (12:08)
[2018-10-18 12:52] VITALS: BP 172/77; PULSE 81
[2018-10-18 16:00] LABS: Appearance,BF Cloudy; Color,BF Red
[2018-10-18 17:11] LABS: RBC, Body Fluid 7200 /uL
[2018-10-18 18:02] LABS: Nucleated Cells, Body Fluid 100 /uL
--- NOTE | 2018-10-18 18:19 | PCN ---
PROCEDURE NOTE PROCEDURE PERFORMED: Bronchoscopy, airway examination, therapeutic lavage, BAL right middle lobe. OPERATORS: Dr. Sarabia and Dr. Dowell There was informed consent. There was universal timeout. ANESTHESIA: Provided unconscious sedation/general anesthesia. DESCRIPTION OF PROCEDURE: After the patient was adequately sedated and being fully monitored, the bronchoscope was inserted through the right nostril. It passed through the right nasopharynx into the oropharynx. The hypopharynx was identified. Anterior commissure, true cords, false cords, arytenoids, piriform sinuses, vallecula and epiglottis appeared normal. The glottic opening was topicalized. The bronchoscope was pushed into the trachea. Trachea appeared normal. Tracheal luli was sharp. The right and left mainstem were topicalized. The right upper lobe and its 3 segments, right middle lobe and its 2 segments, right lower lobe and its five segments, left upper lobe proper with its 2 segments, lingula and its 2 segments and left lower lobe and its 4 segments all had similar findings of very mild bronchitis. There were thin secretions noted. They were not purulent looking. There was no bleeding. There was no dominant mass or tumor. The airways had some very mild erythema and hyperemia. Next, the bronchoscope was wedged into the right middle lobe. The BAL took place. The patient tolerated the procedure well. There was no immediate complication. The bronchoscope then will be withdrawn. Specimens being sent to the laboratory for analysis. MMODL / IJN: [id number] /
[2018-10-18 18:36] LABS: Mononuclear WBC,Body Fluid 39 %; Polynuclear WBC,Body Fluid 61 %; Total Cells Counted,Body Fluid 100
== END 2018-10-18 12:58 | disposition home or self-care (01) ==
LOC: ORWHC2ENDO 10:32
PROVIDERS: ATTEND Internal Medicine Critical Care Medicine
DX: J44.9 Chronic obstructive pulmonary disease, unspecified (principal); E78.5 Hyperlipidemia, unspecified; I10 Essential (primary) hypertension; M19.90 Unspecified osteoarthritis, unspecified site; E55.9 Vitamin D deficiency, unspecified; Z99.81 Dependence on supplemental oxygen; Z87.891 Personal history of nicotine dependence; Z87.01 Personal history of pneumonia (recurrent); Z80.1 Family history of malignant neoplasm of trachea, bronchus and lung; Z98.890 Other specified postprocedural states; Z79.2 Long term (current) use of antibiotics; Z79.51 Long term (current) use of inhaled steroids; Z79.52 Long term (current) use of systemic steroids; Z79.899 Other long term (current) drug therapy; Z88.1 Allergy status to other antibiotic agents; Z88.5 Allergy status to narcotic agent; Z88.8 Allergy status to other drugs, medicaments and biological substances; Z87.19 Personal history of other diseases of the digestive system
CPT/HCPCS: 94640; 87798 ×3; 87496; 87498; 87529 ×2; 88108; 88305; 89050; 87252; 87634; 87070; 87205; 87116; 87102; 87206; 31624; J2001 ×3; J2250; J0461; J3010; J2704

== ENCOUNTER → 2018-11-08 | Outpatient (CLI) | payer MEDICARE ==
[2018-11-08 13:17] LABS: Blood Urea Nitrogen 13 mg/dL (7-17)
--- NOTE | 2018-11-08 14:59 | CT ---
EXAMINATION TYPE: CT abdomen pelvis w con DATE OF EXAM: 11/08/2018 COMPARISON: 01/28/2017 HISTORY: 78-year-old female with left lower quadrant pain. TECHNIQUE: Contiguous axial scanning of the abdomen and pelvis following administration of 100 ml Iso patrice 300 IV contrast. Delayed images through the kidneys and coronal/sagittal reconstructions perform ed. CT DLP: 747 mGycm Automated exposure control for dose reduction was used. FINDINGS: Heart normal size without pericardial effusion. Small hiatal hernia. Reticular changes at the lung ba ses suggest underlying fibrosis and likely superimposed emphysema. Focal episodic plaque along the right lateral wall of the lower descending thoracic aorta is unchange d. Liver mildly enlarged at 18.9 cm, probably due to the presence of a Lyly's lobe. No focal liver les ion or biliary ductal dilatation. Portal venous system is patent. Cholecystectomy clips. Adrenal glands and pancreas appear within normal limits. Multiple calcified granulomas in the spleen. Stable 4.1 cm cyst and 2.2 cm cyst right kidney. Nonobstructive 4 mm left renal calculus and tiny sub centimeter cortical hypodensity left upper pole kidney too small fractured CT characterization, likel y tiny cyst, unchanged. Moderate atherosclerotic calcifications throughout the abdominal aorta and iliac arteries. Fusiform e ctasia of the infrarenal abdominal aorta at 2.8 cm. No dilated small bowel, free fluid, or free air. No mesenteric or retroperitoneal lymphadenopathy. Some surgical material at the right lower quadrant suggesting prior appendectomy. Oral contrast has p rogressed to the distal third transverse colon. No pericolonic inflammatory change. There seems to be in distress rectal anastomosis. Mild distal sigmoid diverticulosis. Again, no pericolonic inflammato ry change. Lateral urine distended. Uterus and both ovaries are visualized. No abnormal fluid collection in the pelvis or pelvic lymphadenopathy. Bones: Degenerative disc disease L3-S1 levels. Stable superior endplate deformity of L4. IMPRESSION: 1. NONOBSTRUCTING 4 MM LEFT RENAL CALCULUS. NO HYDRONEPHROSIS OR OBSTRUCTIVE UROPATHY SEEN. NO ACUTE INFLAMMATORY PROCESS IDENTIFIED. 2. SMALL HIATAL HERNIA, PRIOR GRANULOMATOUS DISEASE, BENIGN CYSTS IN THE RIGHT KIDNEY, MODERATE ATHER OSCLEROTIC CALCIFICATIONS WITH FUSIFORM ECTASIA OF THE INFRARENAL ABDOMINAL AORTA AT 2.8 CM, DISTAL R ECTAL ANASTOMOSIS, AND MILD DISTAL SIGMOID DIVERTICULOSIS.
== END | disposition home or self-care (01) ==
LOC: RADCTMAIN 12:05
PROVIDERS: ATTEND Family Medicine
DX: N20.0 Calculus of kidney (principal); K44.9 Diaphragmatic hernia without obstruction or gangrene; I70.0 Atherosclerosis of aorta; I77.811 Abdominal aortic ectasia; K57.30 Diverticulosis of large intestine without perforation or abscess without bleeding; Z13.9 Encounter for screening, unspecified
CPT/HCPCS: 82565; 84520; 74177; 36415; Q9967

== ENCOUNTER 2018-11-13 05:43 | Emergency (ER) | payer MEDICARE ==
[2018-11-13 06:39] LABS: Basophils % (A) 0 %; Eosinophils # (A) 0.4 k/uL (0-0.7); Eosinophils % (A) 4 %; HCT 39.1 % (34.0-46.0); HGB 12.8 gm/dL (11.4-16.0); Lymphocytes # (A) 1.1 k/uL (1.0-4.8); Lymphocytes % (A) 9 %; MCH 29.2 pg (25.0-35.0); MCHC 32.8 g/dL (31.0-37.0); MCV 89.1 fL (80.0-100.0); Mean Platelet Volume 6.9; Monocytes # (A) 0.6 k/uL (0-1.0); Monocytes % (A) 6 %; Neutrophils % (A) 79 %; Platelet Count 324 k/uL (150-450); RBC 4.38 m/uL (3.80-5.40); RDW 14.9 % (11.5-15.5); WBC 11.4 k/uL (3.8-10.6)
[2018-11-13 06:47] LABS: Appearance,Urine Clear (Clear); Bilirubin,Urine Negative (Negative); Blood,Urine Negative (Negative); Color,Urine Yellow; Glucose,Urine (UA) Negative (Negative); Ketones,Urine Negative (Negative); Leukocyte Esterase,Urine Small (Negative); Mucus,Urine Many /hpf; Nitrite,Urine Negative (Negative); PH, Urine 6.5 (5.0-8.0); Protein,Urine Trace (Negative); Specific Gravity,Urine 1.016 (1.001-1.035); Squamous Epithelial Cell,Urine 1 /hpf (0-4); Urobilinogen,Urine <2.0 mg/dL (<2.0); WBC,Urine 2 /hpf (0-5)
[2018-11-13 06:49] LABS: ALT 36 U/L (9-52); AST 23 U/L (14-36); Albumin 3.3 g/dL (3.5-5.0); Alkaline Phosphatase 74 U/L (38-126); Anion Gap 8 mmol/L; Blood Urea Nitrogen 12 mg/dL (7-17); Calcium 8.9 mg/dL (8.4-10.2); Carbon Dioxide 29 mmol/L (22-30); Chloride 99 mmol/L (98-107); Glucose 106 mg/dL (74-99); Potassium 3.2 mmol/L (3.5-5.1); Sodium 136 mmol/L (137-145); Total Bilirubin 0.8 mg/dL (0.2-1.3); Total Protein 5.9 g/dL (6.3-8.2)
[2018-11-13 06:54] LABS: INR 0.9 (<1.2); Partial Thromboplastin Time 23.2 sec (22.0-30.0); Prothrombin Time 9.9 sec (9.0-12.0)
--- NOTE | 2018-11-13 06:55 | XR ---
EXAM: XR Chest, 2 Views CLINICAL HISTORY: ITS.REASON XR Reason: difficulty breathing TECHNIQUE: Frontal and lateral views of the chest. COMPARISON: 09/29/18 FINDINGS: Lungs: Focal air space disease with coarse increased lung markings in the right upper lobe subjacent to area of lucency likely developing infiltrate superimposed on underlying emphysema. Persistent slight increased lung markings in the lower lungs which may reflect chronic bronchitis. Pleural space: Unremarkable. No pneumothorax. Heart: Unremarkable. No cardiomegaly. Mediastinum: Unremarkable. Bones/joints: Mild degenerative changes in the spine Vasculature: Calcified tortuous thoracic aorta, unchanged. IMPRESSION: Focal infiltrate in the right upper lobe superimposed on underlying emphysema/chronic changes. Follow-up to clearing recommended to exclude a developing lesion. Additional findings, unchanged. No effusion.
[2018-11-13 06:58] LABS: D-Dimer 1.29 mg/L FEU (<0.60)
[2018-11-13 07:09] LABS: Creatine Kinase 107 U/L (30-135)
[2018-11-13] MEDS ORDERED: DEXAMETHASONE SOD PHOSPHATE 10 MG/ML 1 ML VIAL IV STA (07:12)
[2018-11-13] MEDS ORDERED: ALBUTEROL NEBULIZED 2.5 MG/3 ML INHALATION STA (07:12)
[2018-11-13] MEDS ORDERED: IPRATROPIUM-ALBUTEROL 3 ML NEB INHALATION STA (07:12)
[2018-11-13] MEDS ORDERED: MORPHINE SULFATE 4 MG/ML SYRINGE IVP STA (07:12)
--- NOTE | 2018-11-13 07:16 | ED ---
General Adult HPI - General Chief complaint: Shortness of Breath Stated complaint: ELIAS/Abd Bloating Time Seen by Provider: 11/13/18 07:01 Source: patient, family, RN notes reviewed, old records reviewed Mode of arrival: ambulatory Limitations: no limitations - History of Present Illness Initial comments: 78-year-old female presents for evaluation of dyspnea, and abdominal pain. Patient has history of COPD, states that she uses oxygen as needed. She's had mild cough and dyspnea over the past several weeks. She was evaluated by pulmonology and had bronchoscopy, she states this did significantly improve her symptoms. Denies fever but states she's had chills. Second complaint of lower abdominal pain, this has been ongoing for the past 3 months. She was seen by her primary care physician with this complaint, CAT scan was obtained within the past week. Patient reports CAT scan did not show any significant abnormalities patient was instructed to obtain pelvic ultrasound to further evaluate her lower abdominal pain. Denies dysuria or hematuria. Denies vaginal bleeding. She states she did have an episode of rectal bleeding which occurred several weeks ago and has resolved. - Related Data Home Medications Medication Instructions Recorded Confirmed Hydrochlorothiazide [Hydrodiuril] 25 mg PO DAILY 01/01/17 11/13/18 Albuterol Nebulized [Ventolin 2.5 mg INHALATION RT-QID 09/25/17 11/13/18 Nebulized] Cholecalciferol (Vitamin D3) 2,000 unit PO HS 09/25/17 11/13/18 [Vitamin D3] Metoprolol Succinate [Toprol XL] 12.5 mg PO DAILY 09/25/17 11/13/18 amLODIPine [Norvasc] 5 mg PO DAILY 09/25/17 11/13/18 Albuterol Inhaler [Ventolin Hfa 2 puff INHALATION RT-Q6H PRN 02/09/18 11/13/18 Inhaler] Budesonide-Formot 160-4.5 Mcg 2 puff INHALATION RT-BID 02/09/18 11/13/18 [Symbicort 160-4.5 Mcg Inhaler] Atorvastatin [Lipitor] 10 mg PO HS 09/29/18 11/13/18 Previous Rx's Medication Instructions Recorded Doxycycline [Vibramycin] 100 mg PO BID #20 cap 11/13/18 predniSONE 50 mg PO DAILY #5 tab 11/13/18 Allergies Allergy/AdvReac Type Severity Reaction Status Date / Time amoxicillin [From Augmentin] Allergy Unknown Verified 11/13/18 08:20 clavulanic acid Allergy Unknown Verified 11/13/18 08:20 [From Augmentin] moxifloxacin HCl Allergy Rash/Hives, Verified 11/13/18 08:20 [From Avelox] SWELLING nitrofurantoin Allergy Rash/Hives Verified 11/13/18 08:20 hydrocodone bitartrate AdvReac Nausea & Verified 11/13/18 08:20 [From Lortab] Vomiting simvastatin AdvReac muscle pain Verified 11/13/18 08:20 Ozerilh-Vxz-Bas Reductase AdvReac MUSCLE PAIN Verified 11/13/18 08:20 Inhibitor Review of Systems ROS Statement: Those systems with pertinent positive or pertinent negative responses have been documented in the HPI. ROS Other: All systems not noted in ROS Statement are negative. Past Medical History Past Medical History: Asthma, COPD, Hyperlipidemia, Hypertension, Osteoarthritis (OA), Pneumonia, Respiratory Disorder Additional Past Medical History / Comment(s): diverticulitis. History of Any Multi-Drug Resistant Organisms: None Reported Past Surgical History: Appendectomy, Bowel Resection, Cholecystectomy, Heart Catheterization, Orthopedic Surgery, Tubal Ligation Additional Past Surgical History / Comment(s): 11/11/15 bronchoscopy and lavage, bowel resection due to diverticulitis 2012, bilat knee arthroscopy, sinus surgery, carpal tunnel left wrist, colonoscopy. Past Anesthesia/Blood Transfusion Reactions: No Reported Reaction Past Psychological History: Anxiety Smoking Status: Former smoker Past Alcohol Use History: None Reported Past Drug Use History: None Reported - Past Family History Mother Family Medical History: Myocardial Infarction (ME) Additional Family Medical History / Comment(s): Mother of ME at age 65 yrs. Sister(s) Family Medical History: Cancer Additional Family Medical History / Comment(s): Twin sister had LUNG cancer. Father Family Medical History: Cancer Additional Family Medical History / Comment(s): Father had cancer in his neck. General Exam Limitations: no limitations General appearance: alert, in no apparent distress Head exam: Present: atraumatic, normocephalic Eye exam: Present: normal appearance, PERRL ENT exam: Present: normal exam Neck exam: Present: normal inspection. Absent: tenderness, meningismus Respiratory exam: Present: wheezes, decreased breath sounds Cardiovascular Exam: Present: regular rate, normal rhythm GI/Abdominal exam: Present: soft, tenderness (Mild bilateral lower tenderness). Absent: distended, guarding, rebound Extremities exam: Present: normal inspection, normal capillary refill Neurological exam: Present: alert, oriented X3, CN II-XII intact. Absent: motor sensory deficit Psychiatric exam: Present: normal affect, normal mood Skin exam: Present: warm, dry, intact. Absent: cyanosis, diaphoretic Course Vital Signs 11/13/18 11/13/18 11/13/18 05:47 06:37 07:00 Temperature 98.2 F Pulse Rate 100 89 Respiratory 26 H 18 22 Rate Blood Pressure 133/62 141/70 O2 Sat by Pulse 96 97 Oximetry 11/13/18 11/13/18 11/13/18 07:30 07:50 08:07 Temperature Pulse Rate 86 89 Respiratory Rate Blood Pressure 122/58 O2 Sat by Pulse Oximetry 11/13/18 11/13/18 11/13/18 08:30 09:00 09:30 Temperature Pulse Rate 92 Respiratory 20 Rate Blood Pressure 129/64 97/72 117/61 O2 Sat by Pulse Oximetry EKG Findings - EKG Comments: EKG Findings:: EKG: Sinus rhythm with PAC, no ST segment elevation, ventricular rate of 89, DC interval 156, QRS duration 94, QTC 447 Medical Decision Making - Medical Decision Making 78-year-old female presenting with 2 complaints, dyspnea, and 3 months of abdominal pain. Workup in the emergency department reveals mild leukocytosis 11.4, hemoglobin stable 12.8, d-dimer was ordered and triage, positive at 1.29, CT angiography is obtained which is negative for PE, does show pneumonia in the right upper lobe, this is consistent with chest x-ray findings. Ultrasound is obtained given the patient's history and knee for outpatient ultrasound, this does show some endometrial fluid, and knee for DEVELOPMENTAL PSYCHOLOGIST follow-up and possible biopsy. Patient has normal LITES with the exception of potassium 3.2, this is replaced in the emergency department on reevaluation, patient is hungry, stable vitals, eager for discharge. - Lab Data Result diagrams: 11/13/18 06:10 11/13/18 06:10 Lab Results 11/13/18 11/13/18 11/13/18 Range/Units 05:55 06:10 06:10 WBC 11.4 H (3.8-10.6) k/uL RBC 4.38 (3.80-5.40) m/uL Hgb 12.8 (11.4-16.0) gm/dL Hct 39.1 (34.0-46.0) % MCV 89.1 (80.0-100.0) fL MCH 29.2 (25.0-35.0) pg MCHC 32.8 (31.0-37.0) g/dL RDW 14.9 (11.5-15.5) % Plt Count 324 (150-450) k/uL Neutrophils % 79 % Lymphocytes % 9 % Monocytes % 6 % Eosinophils % 4 % Basophils % 0 % Neutrophils # 9.0 H (1.3-7.7) k/uL Lymphocytes # 1.1 (1.0-4.8) k/uL Monocytes # 0.6 (0-1.0) k/uL Eosinophils # 0.4 (0-0.7) k/uL Basophils # 0.0 (0-0.2) k/uL PT (9.0-12.0) sec INR (<1.2) APTT (22.0-30.0) sec D-Dimer (<0.60) mg/L FEU Sodium (137-145) mmol/L Potassium (3.5-5.1) mmol/L Chloride (98-107) mmol/L Carbon Dioxide (22-30) mmol/L Anion Gap mmol/L BUN (7-17) mg/dL Creatinine (0.52-1.04) mg/dL Est GFR (CKD-EPI)AfAm (>60 ml/min/1.73 sqM) Est GFR (CKD-EPI)NonAf (>60 ml/min/1.73 sqM) Glucose (74-99) mg/dL Plasma Lactic Acid Carlos (0.7-2.0) mmol/L Calcium (8.4-10.2) mg/dL Magnesium (1.6-2.3) mg/dL Total Bilirubin (0.2-1.3) mg/dL AST (14-36) U/L ALT (9-52) U/L Alkaline Phosphatase (38-126) U/L Total Creatine Kinase 107 (30-135) U/L CK-MB (CK-2) 1.6 (0.0-2.4) ng/mL CK-MB (CK-2) Rel Index 1.5 Troponin I <0.012 (0.000-0.034) ng/mL NT-Pro-B Natriuret Pep pg/mL Total Protein (6.3-8.2) g/dL Albumin (3.5-5.0) g/dL Urine Color Yellow Urine Appearance Clear (Clear) Urine pH 6.5 (5.0-8.0) Ur Specific Waban 1.016 (1.001-1.035) Urine Protein Trace H (Negative) Urine Glucose (UA) Negative (Negative) Urine Ketones Negative (Negative) Urine Blood Negative (Negative) Urine Nitrite Negative (Negative) Urine Bilirubin Negative (Negative) Urine Urobilinogen <2.0 (<2.0) mg/dL Ur Leukocyte Esterase Small H (Negative) Urine WBC 2 (0-5) /hpf Ur Squamous Epith Cells 1 (0-4) /hpf Urine Mucus Many H (None) /hpf 11/13/18 11/13/18 11/13/18 Range/Units 06:10 06:10 06:10 WBC (3.8-10.6) k/uL RBC (3.80-5.40) m/uL Hgb (11.4-16.0) gm/dL Hct (34.0-46.0) % MCV (80.0-100.0) fL MCH (25.0-35.0) pg MCHC (31.0-37.0) g/dL RDW (11.5-15.5) % Plt Count (150-450) k/uL Neutrophils % % Lymphocytes % % Monocytes % % Eosinophils % % Basophils % % Neutrophils # (1.3-7.7) k/uL Lymphocytes # (1.0-4.8) k/uL Monocytes # (0-1.0) k/uL Eosinophils # (0-0.7) k/uL Basophils # (0-0.2) k/uL PT 9.9 (9.0-12.0) sec INR 0.9 (<1.2) APTT 23.2 (22.0-30.0) sec D-Dimer 1.29 H (<0.60) mg/L FEU Sodium 136 L (137-145) mmol/L Potassium 3.2 L (3.5-5.1) mmol/L Chloride 99 (98-107) mmol/L Carbon Dioxide 29 (22-30) mmol/L Anion Gap 8 mmol/L BUN 12 (7-17) mg/dL Creatinine 0.51 L (0.52-1.04) mg/dL Est GFR (CKD-EPI)AfAm >90 (>60 ml/min/1.73 sqM) Est GFR (CKD-EPI)NonAf >90 (>60 ml/min/1.73 sqM) Glucose 106 H (74-99) mg/dL Plasma Lactic Acid Carlos (0.7-2.0) mmol/L Calcium 8.9 (8.4-10.2) mg/dL Magnesium 2.0 (1.6-2.3) mg/dL Total Bilirubin 0.8 (0.2-1.3) mg/dL AST 23 (14-36) U/L ALT 36 (9-52) U/L Alkaline Phosphatase 74 (38-126) U/L Total Creatine Kinase (30-135) U/L CK-MB (CK-2) (0.0-2.4) ng/mL CK-MB (CK-2) Rel Index Troponin I (0.000-0.034) ng/mL NT-Pro-B Natriuret Pep 83 pg/mL Total Protein 5.9 L (6.3-8.2) g/dL Albumin 3.3 L (3.5-5.0) g/dL Urine Color Urine Appearance (Clear) Urine pH (5.0-8.0) Ur Specific Waban (1.001-1.035) Urine Protein (Negative) Urine Glucose (UA) (Negative) Urine Ketones (Negative) Urine Blood (Negative) Urine Nitrite (Negative) Urine Bilirubin (Negative) Urine Urobilinogen (<2.0) mg/dL Ur Leukocyte Esterase (Negative) Urine WBC (0-5) /hpf Ur Squamous Epith Cells (0-4) /hpf Urine Mucus (None) /hpf 11/13/18 Range/Units 06:10 WBC (3.8-10.6) k/uL RBC (3.80-5.40) m/uL Hgb (11.4-16.0) gm/dL Hct (34.0-46.0) % MCV (80.0-100.0) fL MCH (25.0-35.0) pg MCHC (31.0-37.0) g/dL RDW (11.5-15.5) % Plt Count (150-450) k/uL Neutrophils % % Lymphocytes % % Monocytes % % Eosinophils % % Basophils % % Neutrophils # (1.3-7.7) k/uL Lymphocytes # (1.0-4.8) k/uL Monocytes # (0-1.0) k/uL Eosinophils # (0-0.7) k/uL Basophils # (0-0.2) k/uL PT (9.0-12.0) sec INR (<1.2) APTT (22.0-30.0) sec D-Dimer (<0.60) mg/L FEU Sodium (137-145) mmol/L Potassium (3.5-5.1) mmol/L Chloride (98-107) mmol/L Carbon Dioxide (22-30) mmol/L Anion Gap mmol/L BUN (7-17) mg/dL Creatinine (0.52-1.04) mg/dL Est GFR (CKD-EPI)AfAm (>60 ml/min/1.73 sqM) Est GFR (CKD-EPI)NonAf (>60 ml/min/1.73 sqM) Glucose (74-99) mg/dL Plasma Lactic Acid Carlos 1.1 (0.7-2.0) mmol/L Calcium (8.4-10.2) mg/dL Magnesium (1.6-2.3) mg/dL Total Bilirubin (0.2-1.3) mg/dL AST (14-36) U/L ALT (9-52) U/L Alkaline Phosphatase (38-126) U/L Total Creatine Kinase (30-135) U/L CK-MB (CK-2) (0.0-2.4) ng/mL CK-MB (CK-2) Rel Index Troponin I (0.000-0.034) ng/mL NT-Pro-B Natriuret Pep pg/mL Total Protein (6.3-8.2) g/dL Albumin (3.5-5.0) g/dL Urine Color Urine Appearance (Clear) Urine pH (5.0-8.0) Ur Specific Waban (1.001-1.035) Urine Protein (Negative) Urine Glucose (UA) (Negative) Urine Ketones (Negative) Urine Blood (Negative) Urine Nitrite (Negative) Urine Bilirubin (Negative) Urine Urobilinogen (<2.0) mg/dL Ur Leukocyte Esterase (Negative) Urine WBC (0-5) /hpf Ur Squamous Epith Cells (0-4) /hpf Urine Mucus (None) /hpf Disposition Clinical Impression: COPD (chronic obstructive pulmonary disease) with emphysema, Pneumonia, Abdominal pain Disposition: HOME SELF-CARE Condition: Fair Instructions (If sedation given, give patient instructions): Abdominal Pain (ED ), COPD (Chronic Obstructive Pulmonary Disease) (ED), Pneumonia (ED) Prescriptions: Doxycycline [Vibramycin] 100 mg PO BID #20 cap predniSONE 50 mg PO DAILY #5 tab Is patient prescribed a controlled substance at d/c from ED?: No Referrals: Neptali Ariza DO [Primary Care Provider] - 1-2 days Trevon Perez MD [STAFF PHYSICIAN] - 1-2 days Time of Disposition: 10:27
[2018-11-13 07:21] LABS: Creatine Kinase MB 1.6 ng/mL (0.0-2.4); Troponin I <0.012 ng/mL (0.000-0.034)
--- NOTE | 2018-11-13 08:03 | CT ---
EXAMINATION TYPE: CT angio chest DATE OF EXAM: 11/13/2018 COMPARISON: 06/16/2016 HISTORY: SOB CT DLP: 282.3 mGycm CONTRAST: CT chest with contrast and 3D reconstruction with MIP imaging is performed with IV Contrast, patient injected with 64 mL of Isovue 370. Contrast-enhanced CT of the chest was performed through the course of the pulmonary arteries with isabelle g and mediastinal window settings submitted. 3D reconstruction with MIP imaging was also performed. PULMONARY ARTERIES: The pulmonary arteries and their major tributaries are patent. I do not see ramakrishna dence for sizable filling defect to suggest pulmonary embolic process. LUNGS: There is severe emphysematous change noted within the upper lobes bilaterally. There is airspa ce consolidation right upper lobe felt to reflect underlying pneumonia. No concerning mass or nodule identified at this time. No pleural effusion. MEDIASTINUM: Thoracic aorta is of normal caliber,however, evaluation is limited given timing of the contrast bolus. If there is concern for thoracic aortic pathology consider LARISA. Correlate clinicall y . The heart is not enlarged. No evidence for mediastinal mass. No mediastinal lymph nodes greater than 1cm. HILAR STRUCTURES: No evidence for mass. No hilar lymph nodes greater than 1 cm. UPPER ABDOMEN: No significant abnormality is seen. IMPRESSION: 1. No evidence for Pulmonary embolism at this time. 2. Severe upper lobe emphysematous change noted with right upper lobe airspace consolidation felt to reflect pneumonia.
[2018-11-13] MEDS ORDERED: IBUPROFEN 600 MG TAB PO STA (09:10)
--- NOTE | 2018-11-13 09:18 | US ---
EXAMINATION TYPE: US transvaginal DATE OF EXAM: 11/13/2018 COMPARISON: CLINICAL HISTORY: Pain. bloating, tubal ligation x 1977. Left side discomfort. TECHNIQUE: Transvaginal (TV). Date of LMP: SAMPLE MAKER ORIGINAL, EXAM MEASUREMENTS: Uterus: 4.6 x 2.9 x 2.1 cm Endometrial Stripe: 0.3 cm Left Ovary: 1.4 x 0.9 x 1.1 cm 1. Uterus: Anteverted Appears small and heterogenous 2. Endometrium: Fluid seen within endometrial canal at fundal region. 3. Right Ovary: Obscured by overlying bowel gas 4. Left Ovary: wnl Spectral, color and waveform doppler imaging shows vascular flow within the left ovary. 5. Bilateral Adnexa: wnl 6. Posterior cul-de-sac: no free fluid IMPRESSION: The uterus is not well-defined and likely due to patient's age. Fluid is abnormal along t he endometrial canal, consider TECHNICAL OPERATIONS SPECIALIST consult, endometrial biopsy. Exam is limited.
[2018-11-13 09:35] VITALS: PULSE 92; RESP 20
--- NOTE | 2018-11-13 09:40 | XR ---
Abdomen HISTORY: Pain and diarrhea Frontal view of the abdomen on 2 images correlated to prior exam 01/30/2017, CT 11/08/2018 Some minimal basilar lung density may reflect atelectasis or scarring. No evident pneumoperitoneum or bowel obstruction. There is contrast within the bladder, renal collecting systems. Surgical clips ar e present right upper quadrant. Calcified granuloma noted within the spleen. Degenerative disc change s in the visualized spine. Vascular calcifications are present within the pelvis. IMPRESSION: Nonobstructive bowel gas pattern. Postop changes. Scoliosis and degenerative disc disease . Additional findings above.
[2018-11-13] MEDS ORDERED: POTASSIUM CHLORIDE ER 20 MEQ TAB.ER PO STA (10:13)
[2018-11-13 11:13] VITALS: BP 131/79; TEMP 98.3
== END 2018-11-13 10:50 | disposition home or self-care (01) ==
LOC: EC 05:43
DX: J43.9 Emphysema, unspecified (principal); J18.9 Pneumonia, unspecified organism; R10.31 Right lower quadrant pain; R10.32 Left lower quadrant pain; E78.5 Hyperlipidemia, unspecified; I10 Essential (primary) hypertension; M19.90 Unspecified osteoarthritis, unspecified site; F41.9 Anxiety disorder, unspecified; Z87.891 Personal history of nicotine dependence; Z79.899 Other long term (current) drug therapy; Z79.51 Long term (current) use of inhaled steroids; Z88.0 Allergy status to penicillin; Z88.1 Allergy status to other antibiotic agents; Z88.8 Allergy status to other drugs, medicaments and biological substances; Z95.818 Presence of other cardiac implants and grafts; Z53.29 Procedure and treatment not carried out because of patient's decision for other reasons
CPT/HCPCS: 36415; 94640; 93005; 85379; 83880; 80053; 82550; 82553; 83605; 83735; 84484; 85025; 85610; 85730; 81001; 87040; 71046; 74018; 93976; 76830; 71275; 99285; 96374; J1100; Q9967

== ENCOUNTER 2018-11-20 10:59 | Inpatient (IN) | payer MEDICARE ==
--- NOTE | 2018-11-20 11:29 | ED ---
General Adult HPI - General Chief complaint: Shortness of Breath Stated complaint: poss pneumonia Time Seen by Provider: 11/20/18 11:05 Source: patient, RN notes reviewed Mode of arrival: ambulatory Limitations: no limitations - History of Present Illness Initial comments: This is a 78-year-old female who presents emergency Department complaining of having pneumonia. Patient states she was at Dr. Cuevas's office and he did an x- ray and it showed pneumonia. Dr. Cuevas wanted the patient admitted according to the patient. Patient states over the last few days she's been coughing a lot and been considerably more short of breath. Patient states she does have a history of COPD but no longer smokes. Patient denies any chest pain or palpitations. Patient denies any fevers but states she's been very chilled. Patient denies abdominal pain patient denies nausea vomiting diarrhea. Patient denies any leg swelling or calf tenderness. Patient denies any recent injury or trauma. - Related Data Home Medications Medication Instructions Recorded Confirmed Hydrochlorothiazide [Hydrodiuril] 25 mg PO DAILY 01/01/17 11/20/18 Albuterol Nebulized [Ventolin 2.5 mg INHALATION RT-QID 09/25/17 11/20/18 Nebulized] Cholecalciferol (Vitamin D3) 2,000 unit PO HS 09/25/17 11/20/18 [Vitamin D3] Metoprolol Succinate [Toprol XL] 12.5 mg PO DAILY 09/25/17 11/20/18 amLODIPine [Norvasc] 5 mg PO DAILY 09/25/17 11/20/18 Albuterol Inhaler [Ventolin Hfa 2 puff INHALATION RT-Q6H PRN 02/09/18 11/20/18 Inhaler] Budesonide-Formot 160-4.5 Mcg 2 puff INHALATION RT-BID 02/09/18 11/20/18 [Symbicort 160-4.5 Mcg Inhaler] Atorvastatin [Lipitor] 10 mg PO HS 09/29/18 11/20/18 Previous Rx's Medication Instructions Recorded Doxycycline [Vibramycin] 100 mg PO BID #20 cap 11/13/18 Allergies Allergy/AdvReac Type Severity Reaction Status Date / Time amoxicillin [From Augmentin] Allergy Unknown Verified 11/20/18 12:09 clavulanic acid Allergy Unknown Verified 11/20/18 12:09 [From Augmentin] moxifloxacin HCl Allergy Rash/Hives, Verified 11/20/18 12:09 [From Avelox] SWELLING nitrofurantoin Allergy Rash/Hives Verified 11/20/18 12:09 hydrocodone bitartrate AdvReac Nausea & Verified 11/20/18 12:09 [From Lortab] Vomiting simvastatin AdvReac muscle pain Verified 11/20/18 12:09 Jreifgx-Evu-Uph Reductase AdvReac MUSCLE PAIN Verified 11/20/18 12:09 Inhibitor Review of Systems ROS Statement: Those systems with pertinent positive or pertinent negative responses have been documented in the HPI. ROS Other: All systems not noted in ROS Statement are negative. Past Medical History Past Medical History: Asthma, COPD, Hyperlipidemia, Hypertension, Osteoarthritis (OA), Pneumonia, Respiratory Disorder Additional Past Medical History / Comment(s): diverticulitis. History of Any Multi-Drug Resistant Organisms: None Reported Past Surgical History: Appendectomy, Bowel Resection, Cholecystectomy, Heart Catheterization, Orthopedic Surgery, Tubal Ligation Additional Past Surgical History / Comment(s): 11/11/15 bronchoscopy and lavage, bowel resection due to diverticulitis 2012, bilat knee arthroscopy, sinus surgery, carpal tunnel left wrist, colonoscopy. Past Anesthesia/Blood Transfusion Reactions: No Reported Reaction Past Psychological History: Anxiety Smoking Status: Former smoker Past Alcohol Use History: None Reported Past Drug Use History: None Reported - Past Family History Mother Family Medical History: Myocardial Infarction ([place]) Additional Family Medical History / Comment(s): Mother of [place] at age 65 yrs. Sister(s) Family Medical History: Cancer Additional Family Medical History / Comment(s): Twin sister had LUNG cancer. Father Family Medical History: Cancer Additional Family Medical History / Comment(s): Father had cancer in his neck. General Exam - General Exam Comments Initial Comments: GENERAL: Patient is well-developed and well-nourished. Patient is nontoxic and well- hydrated and is in mild distress. ENT: Neck is soft and supple. No significant lymphadenopathy is noted. Oropharynx is clear. Moist mucous membranes. Neck has full range of motion without eliciting any pain. EYES: The sclera were anicteric and conjunctiva were pink and moist. Extraocular movements were intact and pupils were equal round and reactive to light. Eyelids were unremarkable. PULMONARY: Unlabored respirations. Good breath sounds bilaterally. No audible rales rhonchi or wheezing was noted. CARDIOVASCULAR: There is a regular rate and rhythm without any murmurs gallops or rubs. ABDOMEN: Soft and nontender with normal bowel sounds. No palpable organomegaly was noted. There is no palpable pulsatile mass. SKIN: Skin is clear with no lesions or rashes and otherwise unremarkable. NEUROLOGIC: Patient is alert and oriented x3. Cranial nerves II through XII are grossly intact. Motor and sensory are also intact. Normal speech, volume and content. Symmetrical smile. MUSCULOSKELETAL: Normal extremities with adequate strength and full range of motion. LYMPHATICS: No significant lymphadenopathy is noted PSYCHIATRIC: Normal psychiatric evaluation. Limitations: no limitations Course Vital Signs 11/20/18 11/20/18 11:07 12:10 Temperature 98.4 F Pulse Rate 92 Respiratory 18 22 Rate Blood Pressure 113/67 O2 Sat by Pulse 92 L Oximetry Medical Decision Making - Medical Decision Making EKG shows a normal sinus rhythm at 77 bpm DC interval is on a 52 QRS is 88 QT interval 42 QTC is 454. Patient's EKG shows no ST segment elevation or depression or T wave abnormalities are noted. Dr. Cuevas thought the chest x-ray showed no infiltrate wanted the patient admitted. I spoke Dr. Devi he agreed to admit the patient admitted the patient continued antibiotics on the floor. I consult Dr. Cuevas. - Lab Data Result diagrams: 11/20/18 11:55 11/20/18 11:55 Lab Results 11/20/18 11/20/18 11/20/18 Range/Units 11:55 11:55 11:55 WBC 14.9 H (3.8-10.6) k/uL RBC 4.59 (3.80-5.40) m/uL Hgb 14.5 (11.4-16.0) gm/dL Hct 41.4 (34.0-46.0) % MCV 90.2 (80.0-100.0) fL MCH 31.5 (25.0-35.0) pg MCHC 34.9 (31.0-37.0) g/dL RDW 15.3 (11.5-15.5) % Plt Count 369 (150-450) k/uL Neutrophils % 81 % Lymphocytes % 9 % Monocytes % 6 % Eosinophils % 3 % Basophils % 1 % Neutrophils # 12.1 H (1.3-7.7) k/uL Lymphocytes # 1.3 (1.0-4.8) k/uL Monocytes # 0.9 (0-1.0) k/uL Eosinophils # 0.4 (0-0.7) k/uL Basophils # 0.1 (0-0.2) k/uL PT (9.0-12.0) sec INR (<1.2) APTT (22.0-30.0) sec Sodium 135 L (137-145) mmol/L Potassium 3.4 L (3.5-5.1) mmol/L Chloride 99 (98-107) mmol/L Carbon Dioxide 29 (22-30) mmol/L Anion Gap 7 mmol/L BUN 23 H (7-17) mg/dL Creatinine 0.59 (0.52-1.04) mg/dL Est GFR (CKD-EPI)AfAm >90 (>60 ml/min/1.73 sqM) Est GFR (CKD-EPI)NonAf 89 (>60 ml/min/1.73 sqM) Glucose 100 H (74-99) mg/dL Plasma Lactic Acid Carlos (0.7-2.0) mmol/L Calcium 9.2 (8.4-10.2) mg/dL Total Bilirubin 1.2 (0.2-1.3) mg/dL AST 23 (14-36) U/L ALT 43 (9-52) U/L Alkaline Phosphatase 69 (38-126) U/L Total Creatine Kinase 70 (30-135) U/L CK-MB (CK-2) 2.0 (0.0-2.4) ng/mL CK-MB (CK-2) Rel Index 2.9 Troponin I <0.012 (0.000-0.034) ng/mL Total Protein 5.9 L (6.3-8.2) g/dL Albumin 3.4 L (3.5-5.0) g/dL Urine Color Urine Appearance (Clear) Urine pH (5.0-8.0) Ur Specific [place] (1.001-1.035) Urine Protein (Negative) Urine Glucose (UA) (Negative) Urine Ketones (Negative) Urine Blood (Negative) Urine Nitrite (Negative) Urine Bilirubin (Negative) Urine Urobilinogen (<2.0) mg/dL Ur Leukocyte Esterase (Negative) 11/20/18 11/20/18 11/20/18 Range/Units 11:55 11:55 13:07 WBC (3.8-10.6) k/uL RBC (3.80-5.40) m/uL Hgb (11.4-16.0) gm/dL Hct (34.0-46.0) % MCV (80.0-100.0) fL MCH (25.0-35.0) pg MCHC (31.0-37.0) g/dL RDW (11.5-15.5) % Plt Count (150-450) k/uL Neutrophils % % Lymphocytes % % Monocytes % % Eosinophils % % Basophils % % Neutrophils # (1.3-7.7) k/uL Lymphocytes # (1.0-4.8) k/uL Monocytes # (0-1.0) k/uL Eosinophils # (0-0.7) k/uL Basophils # (0-0.2) k/uL PT 10.1 (9.0-12.0) sec INR 0.9 (<1.2) APTT 21.5 L (22.0-30.0) sec Sodium (137-145) mmol/L Potassium (3.5-5.1) mmol/L Chloride (98-107) mmol/L Carbon Dioxide (22-30) mmol/L Anion Gap mmol/L BUN (7-17) mg/dL Creatinine (0.52-1.04) mg/dL Est GFR (CKD-EPI)AfAm (>60 ml/min/1.73 sqM) Est GFR (CKD-EPI)NonAf (>60 ml/min/1.73 sqM) Glucose (74-99) mg/dL Plasma Lactic Acid Carlos 1.2 (0.7-2.0) mmol/L Calcium (8.4-10.2) mg/dL Total Bilirubin (0.2-1.3) mg/dL AST (14-36) U/L ALT (9-52) U/L Alkaline Phosphatase (38-126) U/L Total Creatine Kinase (30-135) U/L CK-MB (CK-2) (0.0-2.4) ng/mL CK-MB (CK-2) Rel Index Troponin I (0.000-0.034) ng/mL Total Protein (6.3-8.2) g/dL Albumin (3.5-5.0) g/dL Urine Color Light Yellow Urine Appearance Clear (Clear) Urine pH 6.5 (5.0-8.0) Ur Specific [place] 1.004 (1.001-1.035) Urine Protein Negative (Negative) Urine Glucose (UA) Negative (Negative) Urine Ketones Negative (Negative) Urine Blood Negative (Negative) Urine Nitrite Negative (Negative) Urine Bilirubin Negative (Negative) Urine Urobilinogen <2.0 (<2.0) mg/dL Ur Leukocyte Esterase Negative (Negative) Disposition Clinical Impression: Pneumonia, Dyspnea Disposition: ADMITTED IP TO THIS HOSP Referrals: Neptali Ariza DO [Primary Care Provider] - 1-2 days Time of Disposition: 14:14
[2018-11-20] MEDS: SODIUM CHLORIDE 0.9% 500 ML 500 ML IV SCH ×2 (11:48→12:01)
[2018-11-20 12:23] LABS: ALT 43 U/L (9-52); AST 23 U/L (14-36); Albumin 3.4 g/dL (3.5-5.0); Alkaline Phosphatase 69 U/L (38-126); Anion Gap 7 mmol/L; Blood Urea Nitrogen 23 mg/dL (7-17); Calcium 9.2 mg/dL (8.4-10.2); Carbon Dioxide 29 mmol/L (22-30); Chloride 99 mmol/L (98-107); Glucose 100 mg/dL (74-99); Potassium 3.4 mmol/L (3.5-5.1); Sodium 135 mmol/L (137-145); Total Bilirubin 1.2 mg/dL (0.2-1.3); Total Protein 5.9 g/dL (6.3-8.2)
[2018-11-20 12:34] LABS: Creatine Kinase 70 U/L (30-135)
[2018-11-20 12:36] LABS: Basophils # (A) 0.1 k/uL (0-0.2); Basophils % (A) 1 %; Eosinophils # (A) 0.4 k/uL (0-0.7); Eosinophils % (A) 3 %; HCT 41.4 % (34.0-46.0); HGB 14.5 gm/dL (11.4-16.0); INR 0.9 (<1.2); Lymphocytes # (A) 1.3 k/uL (1.0-4.8); Lymphocytes % (A) 9 %; MCH 31.5 pg (25.0-35.0); MCHC 34.9 g/dL (31.0-37.0); MCV 90.2 fL (80.0-100.0); Mean Platelet Volume 7.5; Monocytes # (A) 0.9 k/uL (0-1.0); Monocytes % (A) 6 %; Neutrophils # (A) 12.1 k/uL (1.3-7.7); Neutrophils % (A) 81 %; Platelet Count 369 k/uL (150-450); Prothrombin Time 10.1 sec (9.0-12.0); RBC 4.59 m/uL (3.80-5.40); RDW 15.3 % (11.5-15.5); WBC 14.9 k/uL (3.8-10.6)
[2018-11-20 12:39] LABS: Partial Thromboplastin Time 21.5 sec (22.0-30.0)
[2018-11-20 12:47] LABS: Troponin I <0.012 ng/mL (0.000-0.034)
--- NOTE | 2018-11-20 13:22 | XR ---
EXAMINATION TYPE: XR chest 2V DATE OF EXAM: 11/20/2018 COMPARISON: Chest x-ray CT chest from one week ago. HISTORY: Fever and shortness of breath, possible pneumonia TECHNIQUE: Frontal and lateral views of the chest are obtained. FINDINGS: There is bullous change with honeycombing right upper lung and right basilar opacity favor ing scarring. Right-sided volume loss with mediastinal shift is redemonstrated. Left lung remains c lear. No pleural effusion or pneumothorax is noted bilaterally. Cardiac silhouette size is stable and upper limits of normal atherosclerotic thoracic aorta. The osseous structures are intact. IMPRESSION: Overall stable findings, background mild emphysematous change with right upper lung advan liane scarring, areas of acute infiltrate are not entirely excluded but felt less likely. No new infilt rate is seen.
[2018-11-20 13:31] LABS: Appearance,Urine Clear (Clear); Bilirubin,Urine Negative (Negative); Blood,Urine Negative (Negative); Color,Urine Light Yellow; Glucose,Urine (UA) Negative (Negative); Ketones,Urine Negative (Negative); Leukocyte Esterase,Urine Negative (Negative); Nitrite,Urine Negative (Negative); PH, Urine 6.5 (5.0-8.0); Protein,Urine Negative (Negative); Specific Gravity,Urine 1.004 (1.001-1.035); Urobilinogen,Urine <2.0 mg/dL (<2.0)
[2018-11-20] MEDS ORDERED: PNEUMONIA PROTOCOL UTILIZED 1 EACH MISC PO PRN (14:14)
[2018-11-20 15:14] VITALS: BMI 26.0
[2018-11-20] MEDS: ALBUTEROL NEBULIZED 2.5 MG/3 ML INHALATION SCH ×2 (17:42→21:07)
[2018-11-20] MEDS: AZITHROMYCIN 500 MG TAB PO SCH (17:55)
[2018-11-20] MEDS ORDERED: SYMBICORT 160-4.5 MCG INHALER INHALATION SCH (20:45)
[2018-11-20] MEDS: ATORVASTATIN 10 MG TAB PO SCH (21:55)
[2018-11-21] MEDS ORDERED: IPRATROPIUM-ALBUTEROL 3 ML NEB INHALATION PRN (00:40)
[2018-11-21] MEDS ORDERED: ALPRAZolam 0.25 MG TAB PO PRN (00:41)
[2018-11-21] MEDS: methylPREDNISolone SOD SUCCI 125 MG/2 ML VIAL IV SCH ×4 (05:36→22:59)
[2018-11-21 07:02] LABS: Glucose,Whole Blood 93 mg/dL (75-99)
--- NOTE | 2018-11-21 07:40 | HP ---
HISTORY AND PHYSICAL DATE OF SERVICE: 11/20/2018 CHIEF COMPLAINTS: Shortness of breath, cough and sputum. HISTORY OF PRESENT ILLNESS: This 78-year-old woman with a past medical history of multiple medical problems including asthma, COPD, hypertension, hyperlipidemia, DJD being followed by Dr. Neptali Ariza in the outpatient setting was recently admitted to [facility] with features of COPD exacerbation and tracheobronchitis. Patient was treated with antibiotics. Dr. Sarabia saw the patient. Patient improved significantly, she went home. The patient continues to have shortness of breath and cough and sputum and presented to Dr. Sarabia's office and chest x-ray showed possible pneumonia. The patient was admitted for further evaluation and treatment. The patient has significant cough at this time especially with deep breathing. There is no history of fever, rigors. No history of headache, loss of conscious or seizures. Otherwise, the white count is elevated to 14.9, sodium 135, potassium 3.4. PAST MEDICAL HISTORY: History of asthma, COPD, history of recent tracheobronchitis, hypertension, hyperlipidemia, history of DJD, appendectomy, bowel resection. MEDICATIONS: Medications prior to admission include: 1. Vitamin D3, 2000 q.h.s. 2. Lipitor 10 mg q.h.s. 3. Norvasc 5 mg p.o. daily. 4. Toprol XL 12.5 mg daily. 5. HydroDIURIL 25 mg p.o. daily. 6. Vibramycin 100 mg p.o. b.i.d. 7. Symbicort 160/4.5 two puffs b.i.d. 8. Ventolin 2.5 q.i.d. 9. Ventolin q.6 p.r.n. ALLERGIES: Allergies are AMOXICILLIN, CLAVULANIC ACID, AVELOX, NITROFURANTOIN, LORTAB, SIMVASTATIN, STATINS. FAMILY HISTORY: History of cancer, lung cancer in the family. SOCIAL HISTORY: Previous history of smoking REVIEW OF SYSTEMS: ENT: No diminished hearing or diminished vision. CARDIOVASCULAR SYSTEM: As mentioned earlier. RESPIRATORY SYSTEM: As mentioned earlier. GI: No nausea. : No dysuria. NERVOUS SYSTEM: No numbness or weakness. ALLERGY/IMMUNOLOGICAL: No asthma. MUSCULOSKELETAL: As mentioned earlier. HEMATOLOGY/ONCOLOGY: No history of anemia. ENDOCRINE: No history of diabetes or hypothyroidism. CONSTITUTIONAL: As mentioned earlier. DERMATOLOGY: Negative. RHEUMATOLOGY: Negative. PSYCHIATRY: As mentioned earlier. PHYSICAL EXAMINATION: The patient is alert, oriented and oriented x3. Pulse 87, blood pressure 111/50, respiration 20, temperature 98.3, pulse ox 92% on 2 L. HEENT: Conjunctivae normal. Oral mucosa moist. Neck is no jugular venous distention. No carotid bruit. No lymph node enlargement. CARDIOVASCULAR: S1, S2 muffled. RESPIRATORY: Breath efforts are markedly increased. Bilateral scattered rhonchi and crackles. Harsh breathing especially heard in the posterior right lower areas. Crackles also present extensively bilaterally. ABDOMEN: Soft, nontender. No mass palpable. LEGS: No edema, no swelling. NERVOUS SYSTEM: Higher function as mentioned earlier. Moves all 4 limbs. No focal motor sensory deficit. LYMPHATICS: No lymphadenopathy of the neck, axillae or groin. SKIN: No ulcer, rash or bleeding. LABS: Chest x-ray reviewed significant bullous lesions and changes in the right upper lobe which compared to the most recent one appears to be worsening. Other labs are noted. ASSESSMENT: 1. Chronic obstructive pulmonary disease acute exacerbation with acute right- sided pneumonia with failure of outpatient treatment. 2. Increased WBC. 3. Hyponatremia. 4. Hypokalemia. 5. History of asthma. 6. Hypertension. 7. Hyperlipidemia. 8. History of degenerative joint disease. 9. History of pneumonia. 10.History of diverticulitis. 11.History of chronic hypoxic respiratory home oxygen 2 L. 12.History of cholecystectomy. 13.History of tubal ligation. 14.Remote history of nicotine dependence. RECOMMENDATIONS AND DISCUSSION: In this 78-year-old woman who presented with multiple complex medical issues, will monitor the patient closely. Continue the current medications, continue symptomatic treatment. Otherwise at this time I recommend broad-spectrum IV antibiotics for steroids. Obtain culture. Resume the home medications. DVT prophylaxis. Pulmonary consultation with Dr. Sarabia/Dr. Fowler. Guarded prognosis because of multiple complex medical issues. Further recommendations to follow. A copy of dictation forwarded to Dr. Neptali Ariza who is the primary physician. MMODL / IJN: [id number] / MTDD
--- NOTE | 2018-11-21 07:47 | XR ---
EXAMINATION TYPE: XR chest 2V DATE OF EXAM: 11/21/2018 COMPARISON: Prior chest x-ray 11/20/2018 HISTORY: Pneumonia TECHNIQUE: Frontal and lateral views of the chest are obtained. FINDINGS: Findings are similar to prior exam. IMPRESSION: Correlate for possible right upper lobe pneumonia versus chronic scarring or tumor, ther e is underlying emphysematous change.
[2018-11-21] MEDS: INSULIN ASPART (NovoLOG) 100 UNIT/ML VIAL SQ SCH ×4 (07:54→20:21)
[2018-11-21] MEDS ORDERED: SYMBICORT 160-4.5 MCG INHALER INHALATION SCH (08:00)
[2018-11-21] MEDS: IPRATROPIUM-ALBUTEROL 3 ML NEB INHALATION SCH ×4 (08:42→20:37)
[2018-11-21] MEDS: BUDESONIDE 1 MG/2 ML NEBU INHALATION SCH ×2 (08:42→20:36)
[2018-11-21] MEDS: FORMOTEROL FUMARATE 20 MCG/2 ML NEBU INHALATION SCH ×2 (08:43→20:37)
[2018-11-21] MEDS: HEPARIN SODIUM,PORCINE 5,000 UNIT/ML 1 ML VIAL SQ SCH ×2 (09:57→20:20)
[2018-11-21] MEDS: PANTOPRAZOLE 40 MG TABLET PO SCH (09:57)
[2018-11-21] MEDS: amLODIPine 5 MG TAB PO SCH (09:57)
[2018-11-21] MEDS: HYDROCHLOROTHIAZIDE 25 MG TAB PO SCH (09:58)
[2018-11-21] MEDS: METOPROLOL SUCCINATE (ER) 25 MG TAB.ER.24H PO SCH (09:58)
[2018-11-21 11:05] LABS: Glucose,Whole Blood 201 mg/dL (75-99)
--- NOTE | 2018-11-21 13:42 | P.CNPUL ---
History of Present Illness Consult date: 11/21/18 Reason for consult: COPD, pneumonia Chief complaint: Shortness of breath, and productive cough History of present illness: This is a 78-year-old female with known history of COPD, severe, O2 dependent, patient normally sees Dr. Sarabia for her COPD. Patient was recently seen for possible pneumonia, and she underwent bronchoscopy with lavage, this was done on 10/18/2018. Since then, the patient was reevaluated again in the ER on 2018, she had a CT angiogram of the chest, it showed disease in the right upper lobe consolidation. Severe emphysematous changes were noted, no evidence of pulmonary embolism was noted. Patient was treated with oral antibiotics, did not get admitted to the hospital. Patient has not been feeling much better, and on 11/20/2018, patient was reevaluated again in the ER and this time she was admitted with the impression of right upper lobe pneumonia and acute exacerbation of COPD. Patient was started empirically on antibiotics in the form of Rocephin and Zithromax, she has multiple ALLERGIES to multiple antibiotics. And I was asked to see her on consultation. Symptoms are mostly symptoms of cough, shortness of breath, wheezing. Cough is productive with yellow phlegm. No fever no chills no hemoptysis and no chest pain. Patient denies any headaches no blurred vision no dizziness. Denies any nausea no vomiting no abdominal pain no chest pain no palpitations. No dysuria and no frequency no urgency. No symptoms of aches and pains. Review of Systems 14 point review of systems were obtained, please refer to pertinent positives in HPI, otherwise remaining systems are negative Past Medical History Past Medical History: Asthma, COPD, Hyperlipidemia, Hypertension, Osteoarthritis (OA), Pneumonia, Respiratory Disorder Additional Past Medical History / Comment(s): diverticulitis. bronchitis, home 02 2 liters n/c as needed. History of Any Multi-Drug Resistant Organisms: None Reported Past Surgical History: Appendectomy, Bowel Resection, Cholecystectomy, Heart Catheterization, Orthopedic Surgery, Tubal Ligation Additional Past Surgical History / Comment(s): 11/11/15 bronchoscopy and lavage, bowel resection due to diverticulitis 2012, bilat knee arthroscopy, sinus surgery, carpal tunnel left wrist, colonoscopy. Past Anesthesia/Blood Transfusion Reactions: No Reported Reaction Additional Past Anesthesia/Blood Transfusion Reaction / Comment(s): has never received blood Smoking Status: Former smoker - Past Family History Mother Family Medical History: Myocardial Infarction ([place]) Additional Family Medical History / Comment(s): Mother of [place] at age 65 yrs. Sister(s) Family Medical History: Cancer Additional Family Medical History / Comment(s): Twin sister had LUNG cancer. Father Family Medical History: Cancer Additional Family Medical History / Comment(s): Father had cancer in his neck. Medications and Allergies Home Medications Medication Instructions Recorded Confirmed Type Hydrochlorothiazide [Hydrodiuril] 25 mg PO DAILY 01/01/17 11/20/18 History Albuterol Nebulized [Ventolin 2.5 mg INHALATION RT-QID 09/25/17 11/20/18 History Nebulized] Cholecalciferol (Vitamin D3) 2,000 unit PO HS 09/25/17 11/20/18 History [Vitamin D3] Metoprolol Succinate [Toprol XL] 12.5 mg PO DAILY 09/25/17 11/20/18 History amLODIPine [Norvasc] 5 mg PO DAILY 09/25/17 11/20/18 History Albuterol Inhaler [Ventolin Hfa 2 puff INHALATION RT-Q6H PRN 02/09/18 11/20/18 History Inhaler] Budesonide-Formot 160-4.5 Mcg 2 puff INHALATION RT-BID 02/09/18 11/20/18 History [Symbicort 160-4.5 Mcg Inhaler] Atorvastatin [Lipitor] 10 mg PO HS 09/29/18 11/20/18 History Doxycycline [Vibramycin] 100 mg PO BID #20 cap 11/13/18 11/20/18 Rx Allergies Allergy/AdvReac Type Severity Reaction Status Date / Time amoxicillin [From Augmentin] Allergy Unknown Verified 11/20/18 12:09 clavulanic acid Allergy Unknown Verified 11/20/18 12:09 [From Augmentin] moxifloxacin HCl Allergy Rash/Hives, Verified 11/20/18 12:09 [From Avelox] SWELLING nitrofurantoin Allergy Rash/Hives Verified 11/20/18 12:09 hydrocodone bitartrate AdvReac Nausea & Verified 11/20/18 12:09 [From Lortab] Vomiting simvastatin AdvReac muscle pain Verified 11/20/18 12:09 Gfpvdrt-Fdb-Mqg Reductase AdvReac MUSCLE PAIN Verified 11/20/18 12:09 Inhibitor Physical Exam Vitals: Vital Signs Temp Pulse Pulse Pulse Resp BP BP 11/21/18 12:00 84 11/21/18 11:50 84 11/21/18 11:15 98.1 F 85 18 137/62 11/21/18 10:29 18 11/21/18 09:07 88 11/21/18 08:56 80 11/21/18 08:55 80 11/21/18 08:45 80 11/21/18 07:22 96.9 F L 81 18 148/75 11/21/18 04:49 98 F 76 18 115/56 11/21/18 00:00 80 20 11/20/18 21:19 84 11/20/18 21:08 78 11/20/18 20:50 98.3 F 87 20 111/50 11/20/18 17:52 92 11/20/18 17:44 94 11/20/18 15:00 98 F 88 94 18 124/62 144/77 11/20/18 14:52 98.2 F 90 22 124/62 Pulse Ox 11/21/18 12:00 11/21/18 11:50 11/21/18 11:15 94 L 11/21/18 10:29 11/21/18 09:07 11/21/18 08:56 11/21/18 08:55 11/21/18 08:45 93 L 11/21/18 07:22 93 L 11/21/18 04:49 96 11/21/18 00:00 11/20/18 21:19 11/20/18 21:08 11/20/18 20:50 92 L 11/20/18 17:52 11/20/18 17:44 11/20/18 15:00 93 L 11/20/18 14:52 94 L Intake and Output 11/20/18 11/21/18 11/21/18 22:59 06:59 14:59 Intake Total 100 400 Balance 100 400 Intake: Intake, IV Titration 400 Amount cefTRIAXone 1 gm In 400 Sodium Chloride 0.9% 50 ml @ 100 mls/hr IVPB Q24HR [facility] Rx#:[id number] Oral 100 Other: Voiding Method Toilet Toilet # Voids 1 Physical Exam: Revealed a 78-year-old female in no distress. On few liters nasal cannula. Head: Atraumatic, normocephalic. HEENT:[Neck is supple.] [No neck masses.] [No thyromegaly.] [No JVD.] PERRLA, EOMI, no icterus, moist mucous membranes. Chest: [Diminished breath sounds at the bases, rhonchi and wheezes noted bilaterally on forced expiratory maneuver. No chest wall tenderness. Symmetrical expansion noted.] Cardiac Exam: [Normal S1 and S2, no S3 gallop, no murmur.] Abdomen: [Soft, nontender, no megaly, no rebound, no guarding, normal bowel sounds.] Extremities: [No clubbing, no edema, no cyanosis.] Neurological Exam: [No focal neurologic deficit.] Alert oriented 3. Psychiatric: Normal mood, affect and mental status examination. Skin: Warm and dry intact no cyanosis, no rashes. Results - Laboratory Findings CBC and BMP: 11/20/18 11:55 11/20/18 11:55 PT/INR, D-dimer PT 10.1 sec (9.0-12.0) 11/20/18 11:55 INR 0.9 (<1.2) 11/20/18 11:55 Abnormal lab findings: Abnormal Labs 11/20/18 11/20/18 11/20/18 11:55 11:55 11:55 WBC 14.9 H Neutrophils # 12.1 H APTT 21.5 L Sodium 135 L Potassium 3.4 L BUN 23 H Glucose 100 H POC Glucose (mg/dL) Total Protein 5.9 L Albumin 3.4 L 11/21/18 11:04 WBC Neutrophils # APTT Sodium Potassium BUN Glucose POC Glucose (mg/dL) 201 H Total Protein Albumin - Diagnostic Findings Chest x-ray: image reviewed (Right upper lobe pneumonia, new finding compared to a chest x-ray noted in the last couple of months.) Assessment and Plan Assessment: Impression: 1 acute on chronic hypoxic respiratory failure secondary to right upper lobe pneumonia, community-acquired, and acute exacerbation of COPD. 2 community-acquired right upper lobe pneumonia 3 acute exacerbation severe COPD and chronic hypoxic respiratory failure 4 remote history of nicotine dependence 5 history of degenerative joint disease 6 benign essential hypertension 7 mixed hyperlipidemia 8 leukocytosis secondary to pneumonia Recommendation: Reviewed and discussed with the patient her workup including her last bronchoscopy reviewed and discussed her present meds, patient will remain on antibiotics in the form of Rocephin and Zithromax, continue DuoNeb updrafts 4 times a day and when necessary, continue steroids, resume her outpatient meds. Continue Pulmicort and Perforomist updrafts. Will continue to follow with you. Not quite ready for discharge planning at this point. If patient does not improve, may have to reconsider bronchoscopy again. Time with Patient: Greater than 30
[2018-11-21 15:08] LABS: Hemoglobin A1C 6.1 % (4.0-6.0)
--- NOTE | 2018-11-21 15:28 | CDI ---
Date: 11/21/2018 CDS: Anastasia Peterson RN CCDS Admit Date: 11/21/2018 Patient Name: Yakelin Tobar ATTENTION: The Clinical Documentation Specialists (CDI) and [facility] Coding Staff appreciate your assistance in clarifying documentation. Please respond to the clarification below the line at the bottom and electronically sign. The CDI & [facility] Coding staff will review the response and follow-up if needed. Please note: Queries are made part of the Legal Health Record. If you have any questions, please contact the author of this message via ITS. Dr. Fowler Conflicting documentation has been found in the medical record: "acute on chronic respiratory failure " your consult 11/21/2018 "chronic respiratory failure" H & P 11/21/2018 History/Risk Factors: 78 year old female sent to ED from PCP for Pneumonia. Medical history COPD with home oxygen use 2L Clinical Indicators: VSS on admission 92% spo2 on room air, 11/20 1500 sp02 95% 2Lnc 11/21 spo2 93% 2L nc Treatment: 2L oxygen nasal canula, Duoneb tx's, In your opinion, what is the most clinically appropriate diagnosis for this patient? Chronic respiratory failure poa Acute on chronic respiratory failure poa Other explanation of clinical findings Unable to determine (no explanation for clinical findings) (Last Revision: January 2018) MTDD
[2018-11-21] MEDS ORDERED: AZITHROMYCIN 500 MG TAB PO SCH (16:00)
[2018-11-21] MEDS: AZITHROMYCIN 500 MG TAB PO SCH (16:42)
[2018-11-21 16:52] LABS: Glucose,Whole Blood 219 mg/dL (75-99)
--- NOTE | 2018-11-21 17:43 | PN ---
PROGRESS NOTE DATE OF SERVICE: 11/21/2018 This 78-year-old woman who was admitted with COPD, acute exacerbation, as well as pneumonia is being closely monitored. Patient is on broad IV antibiotics. Dr. Fowler is following the patient closely. No chest pain. No palpitations. No fever. Still complaining of cough and some shortness of breath. PHYSICAL EXAMINATION: Alert and oriented x3. Pulse 85, blood pressure 137/62, respiration 18, temperature 98.1, pulse ox 94% on 2 L. HEENT: Conjunctivae normal. NECK: No jugular venous distention. CARDIOVASCULAR SYSTEM: S1, S2 muffled. RESPIRATORY SYSTEM: Breath sounds diminished at the bases. Bilateral scattered rhonchi and crackles ABDOMEN: Soft, non-tender. LEGS: No edema. No swelling. NERVOUS SYSTEM: No focal deficit. LABS: Influenza is negative. ASSESSMENT: 1. Chronic obstructive pulmonary disease, acute exacerbation, with acute right-sided pneumonia, possibly gram-negative, with failure of outpatient treatment. 2. Increased white count. 3. Hyponatremia. 4. Hypokalemia. 5. History of asthma. 6. Hypertension. 7. Hyperlipidemia. 8. History of degenerative joint disease. 9. History of pneumonia. 10.History of diverticulitis. 11.Chronic hypoxic respiratory failure, on home oxygen at 2 L nasal cannula. 12.History of cholecystectomy. 13.History of tubal ligation. 14.Remote history of nicotine dependence. RECOMMENDATIONS AND DISCUSSION: I recommend to continue current management, continue with symptomatic treatment, continue with the bronchodilators. Continue with steroids. Await further cultures. Closely follow with Dr. Fowler. Prognosis guarded. Further recommendations to follow. Possible discharge in 2-3 days once the patient becomes better. MMODL / IJN: [id number] /
--- NOTE | 2018-11-21 19:07 | P.PN ---
Progress Note - Text Progress Note Date: 11/21/18 in my opinion ,patient has acue on chronic hypoxic respiratory failure,that is exactly what I stated in my consult.
[2018-11-21 19:56] LABS: Glucose,Whole Blood 307 mg/dL (75-99)
[2018-11-21] MEDS: ATORVASTATIN 10 MG TAB PO SCH (20:21)
[2018-11-21] MEDS: CHOLECALCIFEROL 1,000 UNIT TAB PO SCH (20:21)
[2018-11-21] MEDS ORDERED: ATORVASTATIN 10 MG TAB PO SCH (21:00)
[2018-11-22] MEDS: methylPREDNISolone SOD SUCCI 125 MG/2 ML VIAL IV SCH ×2 (05:53→12:54)
[2018-11-22 06:52] LABS: Glucose,Whole Blood 144 mg/dL (75-99)
[2018-11-22 07:31] VITALS: RESP 16
[2018-11-22 07:42] LABS: Basophils % (A) 0 %; Eosinophils % (A) 0 %; HCT 39.5 % (34.0-46.0); HGB 12.9 gm/dL (11.4-16.0); Lymphocytes # (A) 0.7 k/uL (1.0-4.8); Lymphocytes % (A) 5 %; MCH 29.8 pg (25.0-35.0); MCHC 32.7 g/dL (31.0-37.0); MCV 91.2 fL (80.0-100.0); Monocytes # (A) 0.4 k/uL (0-1.0); Monocytes % (A) 3 %; Neutrophils # (A) 12.1 k/uL (1.3-7.7); Neutrophils % (A) 90 %; Platelet Count 364 k/uL (150-450); RBC 4.33 m/uL (3.80-5.40); RDW 15.2 % (11.5-15.5); WBC 13.4 k/uL (3.8-10.6)
[2018-11-22 07:56] LABS: Anion Gap 7 mmol/L; Blood Urea Nitrogen 13 mg/dL (7-17); Calcium 9.4 mg/dL (8.4-10.2); Carbon Dioxide 29 mmol/L (22-30); Chloride 104 mmol/L (98-107); Glucose 155 mg/dL (74-99); Potassium 3.5 mmol/L (3.5-5.1); Sodium 140 mmol/L (137-145)
[2018-11-22] MEDS: INSULIN ASPART (NovoLOG) 100 UNIT/ML VIAL SQ SCH ×4 (08:02→20:56)
[2018-11-22] MEDS: PANTOPRAZOLE 40 MG TABLET PO SCH (08:02)
[2018-11-22] MEDS: amLODIPine 5 MG TAB PO SCH (08:03)
[2018-11-22] MEDS: METOPROLOL SUCCINATE (ER) 25 MG TAB.ER.24H PO SCH (08:03)
[2018-11-22] MEDS: HYDROCHLOROTHIAZIDE 25 MG TAB PO SCH (08:03)
[2018-11-22] MEDS: HEPARIN SODIUM,PORCINE 5,000 UNIT/ML 1 ML VIAL SQ SCH ×2 (08:04→20:58)
[2018-11-22] MEDS: BUDESONIDE 1 MG/2 ML NEBU INHALATION SCH ×2 (08:56→20:33)
[2018-11-22] MEDS: IPRATROPIUM-ALBUTEROL 3 ML NEB INHALATION SCH ×4 (08:57→20:35)
[2018-11-22] MEDS: FORMOTEROL FUMARATE 20 MCG/2 ML NEBU INHALATION SCH ×2 (08:57→20:33)
[2018-11-22 11:14] LABS: Glucose,Whole Blood 174 mg/dL (75-99)
--- NOTE | 2018-11-22 12:41 | P.PN ---
Subjective Progress Note Date: 11/22/18 Principal diagnosis: Acute right upper lobe pneumonia, acute exacerbation of COPD and acute on chronic hypoxic respiratory failure This is a 78-year-old female with known history of COPD, severe, O2 dependent, patient normally sees Dr. Sarabia for her COPD. Patient was recently seen for possible pneumonia, and she underwent bronchoscopy with lavage, this was done on 10/18/2018. Since then, the patient was reevaluated again in the ER on 2018, she had a CT angiogram of the chest, it showed disease in the right upper lobe consolidation. Severe emphysematous changes were noted, no evidence of pulmonary embolism was noted. Patient was treated with oral antibiotics, did not get admitted to the hospital. Patient has not been feeling much better, and on 11/20/2018, patient was reevaluated again in the ER and this time she was admitted with the impression of right upper lobe pneumonia and acute exacerbation of COPD. Patient was started empirically on antibiotics in the form of Rocephin and Zithromax, she has multiple ALLERGIES to multiple antibiotics. And I was asked to see her on consultation. Symptoms are mostly symptoms of cough, shortness of breath, wheezing. Cough is productive with yellow phlegm. No fever no chills no hemoptysis and no chest pain. Patient denies any headaches no blurred vision no dizziness. Denies any nausea no vomiting no abdominal pain no chest pain no palpitations. No dysuria and no frequency no urgency. No symptoms of aches and pains. Patient was reevaluated today on 11/22/2018, slight improvement compared to yesterday. Continues to have intermittent episodes of productive cough, wheezing and shortness of breath. She had a T-max of 98.5. Normal blood pressure, remains on oxygen at 2 L nasal cannula, and she normally uses oxygen at home and mostly at night and with activity. Went back and reviewed her PFT from the office, patient has an FEV1 of 64% at best, which is indicative of moderate severe COPD. Labs today were reviewed, WBC count is 13.4, down from 14.92 days ago. Patient is tolerating bronchodilators antibiotics and steroids quite well. Although she does have multiple ALLERGIES listed for antibiotics Objective - Vital Signs Vital signs: Vital Signs Temp 98.5 F 11/22/18 11:06 Pulse 88 11/22/18 12:29 Resp 16 11/22/18 11:06 BP 141/60 11/22/18 11:06 Pulse Ox 96 11/22/18 07:29 Intake & Output 11/21/18 11/22/18 11/22/18 18:59 06:59 18:59 Intake Total 50 240 Balance 50 240 Intake: Intake, IV Titration 50 Amount cefTRIAXone 1 gm In 50 Sodium Chloride 0.9% 50 ml @ 100 mls/hr IVPB Q24HR [facility] Rx#:[id number] Oral 240 Other: Voiding Method Toilet Toilet # Voids 1 - Exam Physical Exam: Revealed a 78-year-old female in no distress. On 2 L nasal Head: Atraumatic, normocephalic. HEENT:[Neck is supple.] [No neck masses.] [No thyromegaly.] [No JVD.] PERRLA, EOMI, no icterus, moist mucous membranes. Chest: [Diminished breath sounds at the bases, rhonchi and wheezes noted bilaterally. No chest wall tenderness. Symmetrical expansion noted.] Cardiac Exam: [Normal S1 and S2, no S3 gallop, no murmur.] Abdomen: [Soft, nontender, no megaly, no rebound, no guarding, normal bowel sounds.] Extremities: [No clubbing, no edema, no cyanosis.] Neurological Exam: [No focal neurologic deficit.] Alert oriented 3. Psychiatric: Normal mood, affect and mental status examination. Skin: Warm and dry intact no cyanosis, no rashes. - Labs CBC & Chem 7: 11/22/18 07:19 11/22/18 07:19 Labs: Abnormal Lab Results - Last 24 Hours (Table) 11/20/18 11/21/18 11/21/18 Range/Units 11:55 16:50 19:54 WBC (3.8-10.6) k/uL Neutrophils # (1.3-7.7) k/uL Lymphocytes # (1.0-4.8) k/uL Creatinine (0.52-1.04) mg/dL Glucose (74-99) mg/dL POC Glucose (mg/dL) 219 H 307 H (75-99) mg/dL Hemoglobin A1c 6.1 H (4.0-6.0) % 11/22/18 11/22/18 11/22/18 Range/Units 06:40 07:19 07:19 WBC 13.4 H (3.8-10.6) k/uL Neutrophils # 12.1 H (1.3-7.7) k/uL Lymphocytes # 0.7 L (1.0-4.8) k/uL Creatinine 0.46 L (0.52-1.04) mg/dL Glucose 155 H (74-99) mg/dL POC Glucose (mg/dL) 144 H (75-99) mg/dL Hemoglobin A1c (4.0-6.0) % 11/22/18 Range/Units 11:12 WBC (3.8-10.6) k/uL Neutrophils # (1.3-7.7) k/uL Lymphocytes # (1.0-4.8) k/uL Creatinine (0.52-1.04) mg/dL Glucose (74-99) mg/dL POC Glucose (mg/dL) 174 H (75-99) mg/dL Hemoglobin A1c (4.0-6.0) % Microbiology - Last 24 Hours (Table) 11/20/18 13:07 Urine Culture - Final Urine,Voided 11/20/18 11:55 Blood Culture - Preliminary Blood No Growth after 24 hours Assessment and Plan Assessment: Impression: 1 acute on chronic hypoxic respiratory failure secondary to right upper lobe pneumonia, community-acquired, and acute exacerbation of COPD. 2 community-acquired right upper lobe pneumonia 3 acute exacerbation severe COPD and chronic hypoxic respiratory failure 4 remote history of nicotine dependence 5 history of degenerative joint disease 6 benign essential hypertension 7 mixed hyperlipidemia 8 leukocytosis secondary to pneumonia Recommendation: Continue antibiotics, bronchodilators, steroids, oxygen, patient was resumed on her previous meds for her other medical issues, I believe the patient couldn't have a follow-up chest x-ray in the next 24 hours, and if not getting any worse, patient could be considered for discharge planning in the next 24 hours. Again the chest x-ray was ordered. Discussed and reviewed with the patient her last PFT, apparently she has no clue what her FEV1 baseline normally is. Will follow until discharge tomorrow likely. Time with Patient: Less than 30
[2018-11-22] MEDS: LORATADINE 10 MG TAB PO SCH (12:49)
--- NOTE | 2018-11-22 16:32 | PN ---
PROGRESS NOTE DATE OF SERVICE: 11/22/2018 This 78-year-old woman who was admitted with COPD, acute exacerbation, with acute right- sided pneumonia is on IV antibiotics. Patient is feeling slightly better. Dr. Fowler is following the patient closely. No chest pain. No palpitations. No fever. On exam, alert and oriented x3. The pulse is 98, blood pressure 135/67, respirations 16, temperature 98.2, pulse ox 89% on 2 L. HEENT: Conjunctivae normal. NECK: No jugular venous distention. CARDIOVASCULAR SYSTEM: S1, S2 muffled. RESPIRATORY SYSTEM: Breath sounds diminished at the bases. Bilateral scattered rhonchi and crackles. ABDOMEN: Soft, non-tender. LEGS: No edema. No swelling. NERVOUS SYSTEM: No focal deficit. LABS: WBC 13.4, hemoglobin 12.9. ASSESSMENT: 1. Chronic obstructive pulmonary disease, acute exacerbation, with acute right-sided pneumonia, possibly gram-negative, with failure of outpatient treatment with acute hypoxic respiratory failure. 2. Acute on chronic hypoxic respiratory failure. 3. Increased white count. 4. Hyponatremia. 5. Hypokalemia. 6. History of asthma. 7. Hypertension. 8. Hyperlipidemia. 9. History of degenerative joint disease. 10.History of pneumonia. 11.History of diverticulosis. 12.Chronic hypoxic respiratory failure, on home oxygen at 2 L nasal cannula. 13.History of cholecystectomy. 14.History of tubal ligation. 15.Remote history of nicotine dependence. RECOMMENDATIONS AND DISCUSSION: I recommend to continue current medications, continue with the monitoring, symptomatic treatment. Otherwise at this time we will monitor the patient closely, continue the bronchodilators, continue steroids, continue the rest of the medication. Increase ambulation. Closely follow with Dr. Fowler. Guarded prognosis. Will taper the steroids. Further recommendations to follow. MMODL / IJN: [id number] /
[2018-11-22] MEDS: AZITHROMYCIN 500 MG TAB PO SCH (17:04)
[2018-11-22 17:19] LABS: Glucose,Whole Blood 185 mg/dL (75-99)
[2018-11-22] MEDS: methylPREDNISolone SOD SUCCI 40 MG/ML 1 ML VIAL IV SCH (19:16)
[2018-11-22 20:01] LABS: Glucose,Whole Blood 237 mg/dL (75-99)
[2018-11-22] MEDS: CHOLECALCIFEROL 1,000 UNIT TAB PO SCH ×2 (20:50→20:55)
[2018-11-22] MEDS: ATORVASTATIN 10 MG TAB PO SCH (20:50)
[2018-11-23 04:54] VITALS: TEMP 98.5
[2018-11-23] MEDS: methylPREDNISolone SOD SUCCI 40 MG/ML 1 ML VIAL IV SCH ×2 (04:58→12:24)
[2018-11-23 06:48] LABS: Glucose,Whole Blood 136 mg/dL (75-99)
[2018-11-23 07:29] VITALS: BP 152/75
[2018-11-23] MEDS: FORMOTEROL FUMARATE 20 MCG/2 ML NEBU INHALATION SCH (07:35)
[2018-11-23] MEDS: BUDESONIDE 1 MG/2 ML NEBU INHALATION SCH (07:35)
[2018-11-23] MEDS: IPRATROPIUM-ALBUTEROL 3 ML NEB INHALATION SCH ×2 (07:35→11:42)
[2018-11-23 07:53] LABS: Basophils % (A) 0 %; Eosinophils % (A) 0 %; HCT 38.7 % (34.0-46.0); HGB 12.8 gm/dL (11.4-16.0); Lymphocytes # (A) 0.8 k/uL (1.0-4.8); Lymphocytes % (A) 5 %; MCHC 33.2 g/dL (31.0-37.0); MCV 90.5 fL (80.0-100.0); Mean Platelet Volume 6.4; Monocytes # (A) 0.7 k/uL (0-1.0); Monocytes % (A) 4 %; Neutrophils # (A) 13.5 k/uL (1.3-7.7); Neutrophils % (A) 89 %; Platelet Count 374 k/uL (150-450); RBC 4.28 m/uL (3.80-5.40); RDW 15.2 % (11.5-15.5); WBC 15.2 k/uL (3.8-10.6)
[2018-11-23 07:59] VITALS: PULSE 88
[2018-11-23 08:11] LABS: Anion Gap 6 mmol/L; Blood Urea Nitrogen 16 mg/dL (7-17); Calcium 9.4 mg/dL (8.4-10.2); Carbon Dioxide 30 mmol/L (22-30); Chloride 104 mmol/L (98-107); Glucose 139 mg/dL (74-99); Potassium 3.4 mmol/L (3.5-5.1); Sodium 140 mmol/L (137-145)
[2018-11-23] MEDS: INSULIN ASPART (NovoLOG) 100 UNIT/ML VIAL SQ SCH ×2 (08:31→12:25)
[2018-11-23] MEDS: amLODIPine 5 MG TAB PO SCH (08:32)
[2018-11-23] MEDS: METOPROLOL SUCCINATE (ER) 25 MG TAB.ER.24H PO SCH (08:32)
[2018-11-23] MEDS: PANTOPRAZOLE 40 MG TABLET PO SCH (08:32)
[2018-11-23] MEDS: HYDROCHLOROTHIAZIDE 25 MG TAB PO SCH (08:33)
[2018-11-23] MEDS: HEPARIN SODIUM,PORCINE 5,000 UNIT/ML 1 ML VIAL SQ SCH (08:33)
[2018-11-23] MEDS: LORATADINE 10 MG TAB PO SCH (08:33)
--- NOTE | 2018-11-23 08:56 | XR ---
EXAMINATION TYPE: XR chest 1V portable DATE OF EXAM: 11/23/2018 COMPARISON: Prior chest x-ray 11/21/2018 HISTORY: Pneumonia TECHNIQUE: Single frontal view of the chest is obtained. FINDINGS: The abnormal attenuation in the right upper lobe may be somewhat less confluent. No other interval change. IMPRESSION: There may be some slight improvement in aeration.
[2018-11-23 11:16] LABS: Glucose,Whole Blood 189 mg/dL (75-99)
[2018-11-23] MEDS ORDERED: Potassium Replacement Protocol 1 EACH MISC MISCELLANE PRN ×2 (12:17→12:34)
[2018-11-23] MEDS: POTASSIUM CHLORIDE ER 20 MEQ TAB.ER PO SCH (12:42)
--- NOTE | 2018-11-23 17:23 | P.PN ---
Subjective Progress Note Date: 11/23/18 Principal diagnosis: Acute right upper lobe pneumonia, acute exacerbation of COPD and acute on chronic hypoxic respiratory failure This is a 78-year-old female with known history of COPD, severe, O2 dependent, patient normally sees Dr. Sarabia for her COPD. Patient was recently seen for possible pneumonia, and she underwent bronchoscopy with lavage, this was done on 10/18/2018. Since then, the patient was reevaluated again in the ER on 2018, she had a CT angiogram of the chest, it showed disease in the right upper lobe consolidation. Severe emphysematous changes were noted, no evidence of pulmonary embolism was noted. Patient was treated with oral antibiotics, did not get admitted to the hospital. Patient has not been feeling much better, and on 11/20/2018, patient was reevaluated again in the ER and this time she was admitted with the impression of right upper lobe pneumonia and acute exacerbation of COPD. Patient was started empirically on antibiotics in the form of Rocephin and Zithromax, she has multiple ALLERGIES to multiple antibiotics. And I was asked to see her on consultation. Symptoms are mostly symptoms of cough, shortness of breath, wheezing. Cough is productive with yellow phlegm. No fever no chills no hemoptysis and no chest pain. Patient denies any headaches no blurred vision no dizziness. Denies any nausea no vomiting no abdominal pain no chest pain no palpitations. No dysuria and no frequency no urgency. No symptoms of aches and pains. Patient was reevaluated today on 11/22/2018, slight improvement compared to yesterday. Continues to have intermittent episodes of productive cough, wheezing and shortness of breath. She had a T-max of 98.5. Normal blood pressure, remains on oxygen at 2 L nasal cannula, and she normally uses oxygen at home and mostly at night and with activity. Went back and reviewed her PFT from the office, patient has an FEV1 of 64% at best, which is indicative of moderate severe COPD. Labs today were reviewed, WBC count is 13.4, down from 14.92 days ago. Patient is tolerating bronchodilators antibiotics and steroids quite well. Although she does have multiple ALLERGIES listed for antibiotics Patient was reevaluated today on 11/23/2018, feeling better, breathing easier, hardly any cough, no wheezing, no shortness of breath.vital signs were noted to be stable, patient was noted to have nonlabored breathing,continues to have a bit of leukocytosis with WBC count of 15.2, basic metabolic profile is normal, CBC is otherwise normal. Chest x-ray continues to show right upper lobe pneumonia, not any worse, probably slightly improved compared to admission chest x-ray. Clinically however the patient is doing much better. Objective - Vital Signs Vital signs: Vital Signs Temp 98.5 F 11/23/18 07:28 Pulse 88 11/23/18 11:56 Resp 16 11/23/18 07:28 BP 152/75 11/23/18 07:28 Pulse Ox 98 11/23/18 04:53 Intake & Output 11/22/18 11/23/18 11/23/18 18:59 06:59 18:59 Intake Total 240 580 Balance 240 580 Intake: Oral 240 580 Other: Voiding Method Toilet Toilet # Voids 3 1 - Exam Physical Exam: Revealed a 78-year-old female in no distress. On 2 L nasal Head: Atraumatic, normocephalic. HEENT:[Neck is supple.] [No neck masses.] [No thyromegaly.] [No JVD.] PERRLA, EOMI, no icterus, moist mucous membranes. Chest: [Diminished breath sounds at the bases, no crackles nor rhonchi no wheezes, symmetrical chest expansion, no chest wall tenderness. Cardiac Exam: [Normal S1 and S2, no S3 gallop, no murmur.] Abdomen: [Soft, nontender, no megaly, no rebound, no guarding, normal bowel sounds.] Extremities: [No clubbing, no edema, no cyanosis.] Neurological Exam: [No focal neurologic deficit.] Alert oriented 3. Psychiatric: Normal mood, affect and mental status examination. Skin: Warm and dry intact no cyanosis, no rashes. - Labs CBC & Chem 7: 11/23/18 07:37 11/23/18 07:37 Labs: Abnormal Lab Results - Last 24 Hours (Table) 11/22/18 11/23/18 11/23/18 Range/Units 19:59 06:47 07:37 WBC 15.2 H (3.8-10.6) k/uL Neutrophils # 13.5 H (1.3-7.7) k/uL Lymphocytes # 0.8 L (1.0-4.8) k/uL Potassium (3.5-5.1) mmol/L Creatinine (0.52-1.04) mg/dL Glucose (74-99) mg/dL POC Glucose (mg/dL) 237 H 136 H (75-99) mg/dL 11/23/18 11/23/18 Range/Units 07:37 11:14 WBC (3.8-10.6) k/uL Neutrophils # (1.3-7.7) k/uL Lymphocytes # (1.0-4.8) k/uL Potassium 3.4 L (3.5-5.1) mmol/L Creatinine 0.50 L (0.52-1.04) mg/dL Glucose 139 H (74-99) mg/dL POC Glucose (mg/dL) 189 H (75-99) mg/dL Microbiology - Last 24 Hours (Table) 11/20/18 11:55 Blood Culture - Preliminary Blood No Growth after 72 hours Assessment and Plan Assessment: Impression: 1 acute on chronic hypoxic respiratory failure secondary to right upper lobe pneumonia, community-acquired, and acute exacerbation of COPD. 2 community-acquired right upper lobe pneumonia 3 acute exacerbation severe COPD and chronic hypoxic respiratory failure 4 remote history of nicotine dependence 5 history of degenerative joint disease 6 benign essential hypertension 7 mixed hyperlipidemia 8 leukocytosis secondary to pneumonia Recommendation: switch patient to oral antibiotics, oral prednisone burst and taper over 2 weeks, start at 30 mg daily and tapered down every 5 days. Patient could be discharged home today, follow up with us in our office in one week. Conveyed my message to the hospitalist/admitting physician. Time with Patient: Less than 30
--- NOTE | 2018-11-24 09:46 | DS ---
DISCHARGE SUMMARY DATE OF SERVICE: 11/23/2018 FINAL DIAGNOSES: 1. Chronic obstructive pulmonary disease exacerbation with acute right-sided pneumonia, possibly gram-negative with failure of outpatient treatment with acute hypoxic respiratory failure. 2. Acute on chronic hypoxic respiratory failure. 3. Increased WBC. 4. Hyponatremia. 5. Hypokalemia. 6. History of asthma. 7. Hypertension. 8. Hyperlipidemia. 9. History of degenerative joint disease. 10.History of pneumonia. 11.History of diverticulosis. 12.Chronic hypoxic respiratory failure on home oxygen at 2 L nasal cannula. 13.History of cholecystectomy. 14.History of tubal ligation. 15.Remote history of nicotine dependence. DISCHARGE DISPOSITION: The patient being discharged in stable condition with guarded prognosis. Discharge cleared by Dr. Fowler. HISTORY OF PRESENT ILLNESS: This 78-year-old woman with past medical history of multiple medical problems, admitted with COPD acute exacerbation, as well as pneumonia, treated with IV antibiotics, bronchodilators, steroids. Patient improved significantly. On exam, vital signs are stable. Cardio system S1, S2. Abdomen soft. Nervous system: No focal deficits. This patient discharged in stable condition with guarded prognosis. DISCHARGE ADVICE AND MEDICATIONS: 1. Diet is cardiac diet. 2. Activity limited until follow up. 3. Follow up with Dr. Ariza in 2-3 days. 4. Follow up with Dr. Sarabia and Dr. Fowler as recommended. MEDICATIONS: 1. Ventolin 2.5 q.i.d. 2. Norvasc 5 mg. 3. Lipitor 10 mg q.h.s. 4. Symbicort 160/4.5 two puffs b.i.d. 5. Vitamin D 2000 q.h.s. 6. HydroDIURIL 25 mg. 7. Toprol-XL 12.5 mg daily. 8. Zithromax 500 mg daily for 5 days. 9. Ceftin 500 mg b.i.d. for 10 days. 10.DuoNeb q.i.d. and p.r.n. 11.Claritin 10 mg p.o. daily. 12.Singular 10 mg q.h.s. 13.Multivitamins one p.o. daily. 14.Protonix 40 mg daily. 15.Prednisone 40 mg daily for 4 days, 30 for 4 days, 20 for 4 days, 10 for 4 days and then stop. MMODL / IJN: [id number] /
== END 2018-11-23 13:25 | disposition home or self-care (01) | DRG 177 ==
LOC: EC 10:59 → 3NMEDONC 14:23 → OBSVTOIN 11-21 13:48
PROVIDERS: ADMIT Hospitalist; ATTEND Hospitalist
DX: J15.6 Pneumonia due to other Gram-negative bacteria (principal); J96.21 Acute and chronic respiratory failure with hypoxia; J44.0 Chronic obstructive pulmonary disease with (acute) lower respiratory infection; J44.1 Chronic obstructive pulmonary disease with (acute) exacerbation; E87.1 Hypo-osmolality and hyponatremia; E78.2 Mixed hyperlipidemia; E87.6 Hypokalemia; I10 Essential (primary) hypertension; Z79.51 Long term (current) use of inhaled steroids; Z79.899 Other long term (current) drug therapy; Z80.1 Family history of malignant neoplasm of trachea, bronchus and lung; Z82.49 Family history of ischemic heart disease and other diseases of the circulatory system; Z87.01 Personal history of pneumonia (recurrent); Z87.891 Personal history of nicotine dependence; Z88.1 Allergy status to other antibiotic agents; Z90.49 Acquired absence of other specified parts of digestive tract; Z98.51 Tubal ligation status; Z99.81 Dependence on supplemental oxygen; Z88.5 Allergy status to narcotic agent; Z88.8 Allergy status to other drugs, medicaments and biological substances; M19.90 Unspecified osteoarthritis, unspecified site
CPT/HCPCS: 36415; 71045; 71046; 80048; 80053; 81003; 82550; 82553; 83036; 83605; 84484; 85025; 85610; 85730; 87040; 87086; 87502; 93005; 94640; 94760; 96365; 99285

== ENCOUNTER 2018-12-07 13:33 | Day surgery (SDC) | payer MEDICARE ==
[2018-12-05 08:48] VITALS: BMI 26.0
[~2018-12-07 13:33] MED LIST changes: -ALBUTEROL NEB (CONC) 2.5 MG/0.5 ML INHALATION ONE; -ATROPINE SULFATE 0.4 MG/ML 1 ML VIAL IM ONE; +DEXAMETHASONE SOD PHOSPHATE 10 MG/ML 1 ML VIAL IV ONE; -LACTATED RINGERS 1,000 ML IV ONE; -LIDOCAINE 1% 20 ML VIAL (10MG/ML) FOR IV START INTRADERMA PRN; -LIDOCAINE HCL/PF 20 MG/ML ML INHALATION ONE; -LIDOCAINE VISCOUS 2% 15 ML CUP MUCOUS MEM ONE; +MIDAZOLAM (PF) 2 MG/2 ML VIAL IV PRN; +ONDANSETRON 4 MG/2 ML VIAL IVP ONE; +ceFAZolin IN SWFI 2 GM/20 ML SYRINGE IVP ONE; +fentaNYL (PF) 50 MCG/ML 2 ML AMP IV PRN
[2018-12-07] MEDS ORDERED: fentaNYL (PF) 50 MCG/ML 2 ML AMP IVP ONE ×2 (15:04→15:52)
--- NOTE | 2018-12-07 16:04 | P.ONQ ---
Anesthesiology Proc Note - PNB - Peripheral Nerve Block Performed Left Axillary Single Time Out Performed: Yes Procedure Start Time: 15:51 Procedure Stop Time: 15:59 Indication: Acute Post-Operative Pain, Analgesia, Requested by physician Sedation Type: Sedate with meaningful contact maintained Preparation: Sterile Prep Position: Supine Catheter: None Needle Types: On-Q Needle Size: 50mm (2") Needle Gauge: 21 Technique: Ultrasound Injectate: Other (see comment) (bupivacaine 0.5% with 1:200k epinephrine 25cc) Blood Aspirated: No Pain Paresthesia on Injection Noted: No Resistance on Injection: Normal Events: Uneventful and Well Tolerated
[2018-12-07] MEDS ORDERED: LIDOCAINE 1% INJ 10MG/ML (20 ML MDV) ONE (18:25)
[2018-12-07] MEDS ORDERED: PROPOFOL 10 MG/ML 20 ML VIAL IV ONE (18:25)
[2018-12-07] MEDS ORDERED: MIDAZOLAM 2 MG/2 ML VIAL ONE (18:25)
[2018-12-07] MEDS ORDERED: LACTATED RINGERS 1,000 ML IV ONE (19:41)
[2018-12-07 20:10] VITALS: TEMP 99
--- NOTE | 2018-12-07 20:44 | P.OP ---
Date of Procedure: 12/07/18 Preoperative Diagnosis: Displaced, comminuted intra-articular left distal radius fracture (>3 parts) Postoperative Diagnosis: Displaced, comminuted intra-articular left distal radius fracture (>3 parts) Procedure(s) Performed: Closed reduction and percutaneous pinning of comminuted, intra-articular left distal radius fracture (>3 parts) Implants: 0.062 K-wires (4) Anesthesia: MAC, regional Surgeon: Ian Farr Bariatric Physician #1: Ayah Ramirez Estimated Blood Loss (ml): 2 Pathology: none sent Condition: stable Disposition: PACU Indications for Procedure: Ms. Tobar is a pleasant 78-year-old female who experienced a mechanical fall which resulted in a displaced, comminuted intra-articular left distal radius fracture. Treatment options were discussed in the office and surgical stabilization was recommended in the form of closed versus open reduction and internal fixation. Risks and benefits of both procedures were reviewed. She expressed understanding and was in agreement to proceed with surgery. The operative site was confirmed and marked preoperatively. Consent forms were signed. Description of Procedure: The patient was administered a regional nerve block by the anesthesia team and then brought to operating suite. She was positioned supine with the operative limb on an arm board. A tourniquet was placed on the arm but was not inflated. Monitored anesthesia was administered. The left upper extremity was prepped and draped in standard, sterile fashion. A timeout was performed which confirmed the patient, the operative site, the site and the procedure to be performed. All team members expressed agreement. The fracture was visualized with intraoperative fluoroscopy. There was a large radial styloid fragment with dorsal comminution. The fracture line extended along the subchondral bone beneath the lunate fossa and into the sigmoid notch. Based on the comminuted nature of the fracture pattern, an attempt at closed reduction and percutaneous fixation was attempted. A manual reduction maneuver was performed utilizing a combination of ulnar deviation and palmar translation. Good initial alignment was obtained. A 0.062 K wire was inserted percutaneously into the radial styloid fragment. With the fracture held reduced, this was advanced across the fracture site and into the metaphysis. Residual shortening was noted along the radial column. A second K wire was introduced and advanced only into the styloid fragment. The first K wire was withdrawn back across the fracture site. The fracture was then re-manipulated and reduction was confirmed on imaging. Both K wires were then advanced crossed the fracture site and into the metaphysis. Some residual step-off seen along the radial column as well as some residual dorsal angulation. A third K wire was introduced into the styloid more proximal starting point and used as a joystick to correct the residual deformity. Radial length improved but residual dorsal tilt remained due to a coronal component to the fracture. Another K wire was introduced dorsally through Remi's tubercle, taking care to avoid the extensor tendons. With the hand palmarly translated and the wrist held flexed, the wire was advanced across the fracture and into the proximal metaphysis. Final images were obtained which confirmed acceptable alignment and reduction of the fracture. The fixation construct was then ranged under live fluoroscopy: No gross motion was seen. The pins were cut short and covered with Jurgan balls. A relaxing incision was made in the skin adjacent to one of the wires. The pin sites were covered with Adaptic and padded with 4 x 4's and Webril. A volar plaster resting splint with an ulnar gutter component was applied with the hand in relative ulnar deviation. Sponge and needle counts were correct at the end of the case. The patient tolerated the procedure well. She was taken to recovery in stable condition.
[2018-12-07] MEDS ORDERED: oxyCODONE-APAP 5-325MG 1 EACH TAB PO ONE (20:45)
[2018-12-07 20:52] VITALS: RESP 18
[2018-12-07 22:42] VITALS: BP 135/67; PULSE 94
--- NOTE | 2018-12-08 07:16 | FL ---
EXAMINATION TYPE: FL guidance operating room, XR wrist limited LT DATE OF EXAM: 12/07/2018 CLINICAL HISTORY: Left distal radial fracture. TECHNIQUE: Fluoroscopy. Limited intraoperative views left wrist. COMPARISON: None. FINDINGS: Fluoroscopic guidance was provided during closed reduction external fixation procedure per formed by Dr. Farr. A total of 1.55 minutes of fluoroscopic time was utilized during the proce dure and 5 spot intraoperative images are acquired. Images acquired show placement of external fixating K wires through impacted comminuted minimally dis placed intra-articular fracture distal radial meta-epiphysis with improved alignment after reduction and external fixation. IMPRESSION: As Above.
== END 2018-12-07 22:45 | disposition home or self-care (01) ==
LOC: OR 13:33 → 4SSUR 21:12 → OR 22:45
PROVIDERS: ATTEND Orthopaedic Surgery
DX: S52.572A Other intraarticular fracture of lower end of left radius, initial encounter for closed fracture (principal); W19.XXXA Unspecified fall, initial encounter; I10 Essential (primary) hypertension; E78.5 Hyperlipidemia, unspecified; J98.4 Other disorders of lung; Z79.891 Long term (current) use of opiate analgesic; Z79.51 Long term (current) use of inhaled steroids; Z79.52 Long term (current) use of systemic steroids; Z79.899 Other long term (current) drug therapy; Z88.1 Allergy status to other antibiotic agents; Z88.5 Allergy status to narcotic agent; Z88.8 Allergy status to other drugs, medicaments and biological substances; Z87.891 Personal history of nicotine dependence
CPT/HCPCS: 73100; 25606; J1100; J2405; J3010; J2250

== ENCOUNTER 2018-12-10 02:37 | Inpatient (IN) | payer MEDICARE ==
--- NOTE | 2018-12-10 03:06 | ED ---
SOB HPI - General Stated Complaint: Difficulty Breathing Time Seen by Provider: 12/10/18 02:47 - History of Present Illness Initial Comments: Yakelin is a 78-year-old female with past medical history of COPD for which she' s been prescribed when necessary oxygen. The patient presents the emergency department today for evaluation of cough and shortness of breath. Patient reports that she had wrist surgery for fractured wrist on Monday. She reports that since going home she has had persistent shortness of breath and cough. Patient reports that she has been using her oxygen continuously and feels very short of breath and has a nonproductive cough whenever she takes it off. Patient called 911 this morning EMS found the patient to be hypoxic and tachypneic with wheezing in all lung schulz. She was treated with a DuoNeb and supplemental oxygen which improved her symptoms significantly. She denies any fevers, chills, chest pain diaphoresis or lightheadedness. She denies any known sick contacts. She reports that her cough is minimally productive. Plan of recent bloody noses - Related Data Home Medications Medication Instructions Recorded Confirmed Hydrochlorothiazide [Hydrodiuril] 25 mg PO DAILY 01/01/17 12/07/18 Cholecalciferol (Vitamin D3) 2,000 unit PO HS 09/25/17 12/07/18 [Vitamin D3] Metoprolol Succinate [Toprol XL] 12.5 mg PO DAILY 09/25/17 12/07/18 amLODIPine [Norvasc] 5 mg PO DAILY 09/25/17 12/07/18 Albuterol Inhaler [Ventolin Hfa 2 puff INHALATION RT-Q6H PRN 02/09/18 12/07/18 Inhaler] Budesonide-Formot 160-4.5 Mcg 2 puff INHALATION RT-BID 02/09/18 12/07/18 [Symbicort 160-4.5 Mcg Inhaler] Atorvastatin [Lipitor] 10 mg PO HS 09/29/18 12/07/18 Previous Rx's Medication Instructions Recorded Ipratropium-Albuterol Nebulize 3 ml INHALATION QID #120 neb 11/23/18 [Duoneb 0.5 mg-3 mg/3 ml Soln] Montelukast Sodium [Singulair] 10 mg PO HS #30 tab 11/23/18 Multivitamins, Thera [Multivitamin 1 tab PO DAILY #30 tablet 11/23/18 (formulary)] predniSONE 10 mg PO DIRECTED #40 tab 11/23/18 Cephalexin [Keflex] 500 mg PO TID #21 cap 12/07/18 Allergies Allergy/AdvReac Type Severity Reaction Status Date / Time amoxicillin [From Augmentin] Allergy Unknown Verified 12/10/18 02:50 clavulanic acid Allergy Unknown Verified 12/10/18 02:50 [From Augmentin] moxifloxacin HCl Allergy Rash/Hives, Verified 12/10/18 02:50 [From Avelox] SWELLING nitrofurantoin Allergy Rash/Hives Verified 12/10/18 02:50 hydrocodone bitartrate AdvReac Nausea & Verified 12/10/18 02:50 [From Lortab] Vomiting simvastatin AdvReac muscle pain Verified 12/10/18 02:50 Pilshda-Hve-Yvr Reductase AdvReac MUSCLE PAIN Verified 12/10/18 02:50 Inhibitor Review of Systems ROS Statement: Those systems with pertinent positive or pertinent negative responses have been documented in the HPI. ROS Other: All systems not noted in ROS Statement are negative. Past Medical History Past Medical History: Asthma, COPD, Hyperlipidemia, Hypertension, Osteoarthritis (OA), Pneumonia, Respiratory Disorder Additional Past Medical History / Comment(s): diverticulitis. bronchitis, home 02 2 liters n/c as needed, lt arm fx 11/29/18 History of Any Multi-Drug Resistant Organisms: None Reported Past Surgical History: Appendectomy, Bowel Resection, Cholecystectomy, Heart Catheterization, Orthopedic Surgery, Tubal Ligation Additional Past Surgical History / Comment(s): 11/11/15 bronchoscopy and lavage, bowel resection due to diverticulitis 2012, bilat knee arthroscopy, sinus surgery, carpal tunnel left wrist, colonoscopy. Past Anesthesia/Blood Transfusion Reactions: No Reported Reaction Additional Past Anesthesia/Blood Transfusion Reaction / Comment(s): has never received blood Past Psychological History: No Psychological Hx Reported Additional Psychological History / Comment(s): Pt lives alone. She is independent. She uses no assistive device. She drives.has home 02 2 liters n/ c and nebulizer. Smoking Status: Former smoker Past Alcohol Use History: None Reported Additional Past Alcohol Use History / Comment(s): QUIT SMOKING 1997, STARTED AGE 18(1957) smoked <1ppd when she smoked Past Drug Use History: None Reported - Past Family History Mother Family Medical History: Myocardial Infarction (SD) Additional Family Medical History / Comment(s): Mother of SD at age 65 yrs. Sister(s) Family Medical History: Cancer Additional Family Medical History / Comment(s): Twin sister had LUNG cancer. Father Family Medical History: Cancer Additional Family Medical History / Comment(s): Father had cancer in his neck. General Exam - General Exam Comments Initial Comments: Physical Exam GENERAL: Chronically Ill-appearing elderly female with her left forearm in a cast HENT: Normocephalic, Atraumatic. EYES: PERRL, EOMI PULMONARY: Tachypnea with wheezing CARDIOVASCULAR: Tachycardia ABDOMEN: Soft and nontender with normal bowel sounds. SKIN: Skin is clear with no lesions or rashes and otherwise unremarkable. : Deferred NEUROLOGIC: Patient is alert and oriented x3. Moving all extremities spontaneously MUSCULOSKELETAL: Left forearm in a cast PSYCHIATRIC: Normal psychiatric evaluation. Limitations: no limitations Course Vital Signs 12/10/18 12/10/18 12/10/18 02:45 03:07 03:30 Temperature 98.8 F Pulse Rate 101 H 98 Respiratory 22 15 Rate Blood Pressure 123/61 123/61 O2 Sat by Pulse 95 77 L 97 Oximetry 12/10/18 12/10/18 12/10/18 04:00 04:03 04:12 Temperature Pulse Rate 93 98 102 H Respiratory 22 Rate Blood Pressure 127/62 O2 Sat by Pulse 95 Oximetry 12/10/18 12/10/18 12/10/18 04:30 05:00 05:30 Temperature 98.7 F Pulse Rate 92 92 90 Respiratory 20 21 24 Rate Blood Pressure 130/59 130/59 123/62 O2 Sat by Pulse 97 100 95 Oximetry Medical Decision Making - Medical Decision Making She was seen and evaluated history was obtained from the patient, EMS and review of medical records 78-year-old female with history of COPD having wheezing cough and shortness of breath Patient was removed from oxygen for transfer from EMS gurney to bed, patient was noted to have oxygen desaturation to 77% while on room air despite having a good waveform that coincided with her heart rate on the oximeter EKG was ordered to evaluate the patient's tachycardia Patient was placed on supplemental oxygen A workup was initiated, labs are relatively unremarkable aside from a significantly elevated d-dimer, chest x-ray with no significant abnormal findings CT angiography was ordered to evaluate for possible pulmonary embolism CTA resulted with no acute pulmonary embolus him, there is a cavitary lesion in the right upper lobe which is been identified in the past At this time I do feel the patient warrants admission the hospital for round-the -clock breathing treatments steroids and further monitoring of her cardiorespiratory status. Patient is agreeable to this plan. Admission orders were placed. - Lab Data Result diagrams: 12/10/18 03:28 12/10/18 03:28 Lab Results 12/10/18 12/10/18 12/10/18 Range/Units 03:28 03:28 03:28 WBC 9.8 (3.8-10.6) k/uL RBC 4.14 (3.80-5.40) m/uL Hgb 12.3 (11.4-16.0) gm/dL Hct 37.8 (34.0-46.0) % MCV 91.3 (80.0-100.0) fL MCH 29.8 (25.0-35.0) pg MCHC 32.6 (31.0-37.0) g/dL RDW 15.6 H (11.5-15.5) % Plt Count 303 (150-450) k/uL Neutrophils % 78 % Lymphocytes % 12 % Monocytes % 5 % Eosinophils % 3 % Basophils % 1 % Neutrophils # 7.6 (1.3-7.7) k/uL Lymphocytes # 1.2 (1.0-4.8) k/uL Monocytes # 0.5 (0-1.0) k/uL Eosinophils # 0.3 (0-0.7) k/uL Basophils # 0.1 (0-0.2) k/uL PT (9.0-12.0) sec INR (<1.2) APTT (22.0-30.0) sec D-Dimer (<0.60) mg/L FEU Sodium 137 (137-145) mmol/L Potassium 3.3 L (3.5-5.1) mmol/L Chloride 101 (98-107) mmol/L Carbon Dioxide 29 (22-30) mmol/L Anion Gap 7 mmol/L BUN 16 (7-17) mg/dL Creatinine 0.57 (0.52-1.04) mg/dL Est GFR (CKD-EPI)AfAm >90 (>60 ml/min/1.73 sqM) Est GFR (CKD-EPI)NonAf 90 (>60 ml/min/1.73 sqM) Glucose 105 H (74-99) mg/dL Plasma Lactic Acid Carlos (0.7-2.0) mmol/L Calcium 8.8 (8.4-10.2) mg/dL Total Bilirubin 0.9 (0.2-1.3) mg/dL AST 27 (14-36) U/L ALT 47 (9-52) U/L Alkaline Phosphatase 81 (38-126) U/L CK-MB (CK-2) 1.4 (0.0-2.4) ng/mL Troponin I <0.012 (0.000-0.034) ng/mL Total Protein 6.1 L (6.3-8.2) g/dL Albumin 3.2 L (3.5-5.0) g/dL Urine Color Urine Appearance (Clear) Urine pH (5.0-8.0) Ur Specific [place] (1.001-1.035) Urine Protein (Negative) Urine Glucose (UA) (Negative) Urine Ketones (Negative) Urine Blood (Negative) Urine Nitrite (Negative) Urine Bilirubin (Negative) Urine Urobilinogen (<2.0) mg/dL Ur Leukocyte Esterase (Negative) Influenza Type A RNA (Not Detectd) Influenza Type B (PCR) (Not Detectd) 12/10/18 12/10/18 12/10/18 Range/Units 03:28 03:28 03:28 WBC (3.8-10.6) k/uL RBC (3.80-5.40) m/uL Hgb (11.4-16.0) gm/dL Hct (34.0-46.0) % MCV (80.0-100.0) fL MCH (25.0-35.0) pg MCHC (31.0-37.0) g/dL RDW (11.5-15.5) % Plt Count (150-450) k/uL Neutrophils % % Lymphocytes % % Monocytes % % Eosinophils % % Basophils % % Neutrophils # (1.3-7.7) k/uL Lymphocytes # (1.0-4.8) k/uL Monocytes # (0-1.0) k/uL Eosinophils # (0-0.7) k/uL Basophils # (0-0.2) k/uL PT 9.8 (9.0-12.0) sec INR 0.9 (<1.2) APTT 20.1 L (22.0-30.0) sec D-Dimer 5.32 H (<0.60) mg/L FEU Sodium (137-145) mmol/L Potassium (3.5-5.1) mmol/L Chloride (98-107) mmol/L Carbon Dioxide (22-30) mmol/L Anion Gap mmol/L BUN (7-17) mg/dL Creatinine (0.52-1.04) mg/dL Est GFR (CKD-EPI)AfAm (>60 ml/min/1.73 sqM) Est GFR (CKD-EPI)NonAf (>60 ml/min/1.73 sqM) Glucose (74-99) mg/dL Plasma Lactic Acid Carlos 1.2 (0.7-2.0) mmol/L Calcium (8.4-10.2) mg/dL Total Bilirubin (0.2-1.3) mg/dL AST (14-36) U/L ALT (9-52) U/L Alkaline Phosphatase (38-126) U/L CK-MB (CK-2) (0.0-2.4) ng/mL Troponin I (0.000-0.034) ng/mL Total Protein (6.3-8.2) g/dL Albumin (3.5-5.0) g/dL Urine Color Urine Appearance (Clear) Urine pH (5.0-8.0) Ur Specific [place] (1.001-1.035) Urine Protein (Negative) Urine Glucose (UA) (Negative) Urine Ketones (Negative) Urine Blood (Negative) Urine Nitrite (Negative) Urine Bilirubin (Negative) Urine Urobilinogen (<2.0) mg/dL Ur Leukocyte Esterase (Negative) Influenza Type A RNA Not Detected (Not Detectd) Influenza Type B (PCR) Not Detected (Not Detectd) 12/10/18 Range/Units 03:28 WBC (3.8-10.6) k/uL RBC (3.80-5.40) m/uL Hgb (11.4-16.0) gm/dL Hct (34.0-46.0) % MCV (80.0-100.0) fL MCH (25.0-35.0) pg MCHC (31.0-37.0) g/dL RDW (11.5-15.5) % Plt Count (150-450) k/uL Neutrophils % % Lymphocytes % % Monocytes % % Eosinophils % % Basophils % % Neutrophils # (1.3-7.7) k/uL Lymphocytes # (1.0-4.8) k/uL Monocytes # (0-1.0) k/uL Eosinophils # (0-0.7) k/uL Basophils # (0-0.2) k/uL PT (9.0-12.0) sec INR (<1.2) APTT (22.0-30.0) sec D-Dimer (<0.60) mg/L FEU Sodium (137-145) mmol/L Potassium (3.5-5.1) mmol/L Chloride (98-107) mmol/L Carbon Dioxide (22-30) mmol/L Anion Gap mmol/L BUN (7-17) mg/dL Creatinine (0.52-1.04) mg/dL Est GFR (CKD-EPI)AfAm (>60 ml/min/1.73 sqM) Est GFR (CKD-EPI)NonAf (>60 ml/min/1.73 sqM) Glucose (74-99) mg/dL Plasma Lactic Acid Carlos (0.7-2.0) mmol/L Calcium (8.4-10.2) mg/dL Total Bilirubin (0.2-1.3) mg/dL AST (14-36) U/L ALT (9-52) U/L Alkaline Phosphatase (38-126) U/L CK-MB (CK-2) (0.0-2.4) ng/mL Troponin I (0.000-0.034) ng/mL Total Protein (6.3-8.2) g/dL Albumin (3.5-5.0) g/dL Urine Color Light Yellow Urine Appearance Clear (Clear) Urine pH 7.0 (5.0-8.0) Ur Specific [place] 1.007 (1.001-1.035) Urine Protein Negative (Negative) Urine Glucose (UA) Negative (Negative) Urine Ketones Negative (Negative) Urine Blood Negative (Negative) Urine Nitrite Negative (Negative) Urine Bilirubin Negative (Negative) Urine Urobilinogen <2.0 (<2.0) mg/dL Ur Leukocyte Esterase Negative (Negative) Influenza Type A RNA (Not Detectd) Influenza Type B (PCR) (Not Detectd) Critical Care Time Critical Care Time: Yes Total Critical Care Time: 20 Critical Care Time: Critical care time was exclusive of separately billable procedures and treating other patients and teaching time. Critical care was necessary to treat or prevent imminent or life-threatening deterioration. Critical care was time spent personally by me on the following activities: development of treatment plan with patient or surrogate, discussions with consultants, discussions with primary provider, evaluation of patient's response to treatment, examination of patient, obtaining history from patient or surrogate, ordering and performing treatments and interventions, ordering and review of laboratory studies, ordering and review of radiographic studies, pulse oximetry, re-evaluation of patient's condition and review of old charts. Disposition Clinical Impression: COPD exacerbation, Hypoxia, Acute exacerbation of chronic obstructive airways disease, Dyspnea Disposition: ADMITTED IP TO THIS [facility] Condition: Stable Is patient prescribed a controlled substance at d/c from ED?: No
[2018-12-10] MEDS ORDERED: SODIUM CHLORIDE 0.9% 500 ML 500 ML IV SCH (03:15)
[2018-12-10] MEDS ORDERED: IPRATROPIUM-ALBUTEROL 3 ML NEB INHALATION STA (03:15)
[2018-12-10 03:44] LABS: Appearance,Urine Clear (Clear); Basophils # (A) 0.1 k/uL (0-0.2); Basophils % (A) 1 %; Bilirubin,Urine Negative (Negative); Blood,Urine Negative (Negative); Color,Urine Light Yellow; Eosinophils # (A) 0.3 k/uL (0-0.7); Eosinophils % (A) 3 %; Glucose,Urine (UA) Negative (Negative); HCT 37.8 % (34.0-46.0); HGB 12.3 gm/dL (11.4-16.0); Ketones,Urine Negative (Negative); Leukocyte Esterase,Urine Negative (Negative); Lymphocytes # (A) 1.2 k/uL (1.0-4.8); Lymphocytes % (A) 12 %; MCH 29.8 pg (25.0-35.0); MCHC 32.6 g/dL (31.0-37.0); MCV 91.3 fL (80.0-100.0); Mean Platelet Volume 6.2; Monocytes # (A) 0.5 k/uL (0-1.0); Monocytes % (A) 5 %; Neutrophils # (A) 7.6 k/uL (1.3-7.7); Neutrophils % (A) 78 %; Nitrite,Urine Negative (Negative); Platelet Count 303 k/uL (150-450); Protein,Urine Negative (Negative); RBC 4.14 m/uL (3.80-5.40); RDW 15.6 % (11.5-15.5); Specific Gravity,Urine 1.007 (1.001-1.035); Urobilinogen,Urine <2.0 mg/dL (<2.0); WBC 9.8 k/uL (3.8-10.6)
[2018-12-10 03:52] LABS: Potassium 3.3 mmol/L (3.5-5.1)
[2018-12-10 03:53] LABS: ALT 47 U/L (9-52); AST 27 U/L (14-36); Albumin 3.2 g/dL (3.5-5.0); Alkaline Phosphatase 81 U/L (38-126); Anion Gap 7 mmol/L; Blood Urea Nitrogen 16 mg/dL (7-17); Calcium 8.8 mg/dL (8.4-10.2); Carbon Dioxide 29 mmol/L (22-30); Chloride 101 mmol/L (98-107); Glucose 105 mg/dL (74-99); Sodium 137 mmol/L (137-145); Total Bilirubin 0.9 mg/dL (0.2-1.3); Total Protein 6.1 g/dL (6.3-8.2)
[2018-12-10 04:07] LABS: INR 0.9 (<1.2); Prothrombin Time 9.8 sec (9.0-12.0)
[2018-12-10 04:09] LABS: Partial Thromboplastin Time 20.1 sec (22.0-30.0)
[2018-12-10 04:10] LABS: D-Dimer 5.32 mg/L FEU (<0.60)
[2018-12-10 04:15] LABS: Creatine Kinase MB 1.4 ng/mL (0.0-2.4); Troponin I <0.012 ng/mL (0.000-0.034)
--- NOTE | 2018-12-10 04:30 | XR ---
EXAM: XR Chest, 2 Views CLINICAL HISTORY: ITS.REASON XR Reason: Fever TECHNIQUE: Frontal and lateral views of the chest. COMPARISON: 12/05/2018. FINDINGS: Lungs: Reidentified presumed cavitary focus in the right upper lobe. Increased now large patchy opacity in the right upper lobe is nonspecific. Mild presumed atelectasis in the left lung base. Pleural space: Unremarkable. No pneumothorax. Heart: Mild cardiomegaly. Mediastinum: Unremarkable. Bones/joints: Mild degenerative changes of both shoulder joints. Vasculature: Calcification of the aortic arch. IMPRESSION: 1. Reidentified presumed cavitary focus in the right upper lobe. 2. Increased now large patchy opacity in the right upper lobe is nonspecific. This may be infectious among other etiologies.
[2018-12-10] MEDS ORDERED: PROMETHAZ-COD 6.25-10 MG/5 ML 5 ML CUP PO PRN (05:20)
[2018-12-10] MEDS ORDERED: ALBUTEROL NEBULIZED 2.5 MG/3 ML INHALATION PRN (05:23)
--- NOTE | 2018-12-10 05:33 | CT ---
EXAM: CT Angiography Chest With Intravenous Contrast CLINICAL HISTORY: ITS.REASON CT Reason: SOB, hypoxia, elevated dimer TECHNIQUE: Axial computed tomographic angiography images of the chest with intravenous contrast using pulmonary embolism protocol. CTDI is 6.6 mGy and DLP is 306.7 mGy-cm. This CT exam was performed using one or more of the following dose reduction techniques: automated exposure control, adjustment of the mA and/or kV according to size, and/or use of iterative reconstruction technique. MIP reconstructed images were created and reviewed. COMPARISON: CT chest dated 11/13/2018. FINDINGS: Pulmonary arteries: Borderline dilatation of the main pulmonary artery to 2.9 cm suggestive of pulmonary artery hypertension. Aorta: Mild dilatation of the abdominal aorta 2.6 cm, not included on the prior exam. Lungs: Reidentified severe centrilobular emphysema. Increased consolidation within the right upper lobe. This is most compatible with pneumonia. Cystic foci within this area of consolidation may represent cavitation although are favored to be related to the emphysema. Pleural space: New small right pleural effusion. No pneumothorax. Heart: Unremarkable. No cardiomegaly. No significant pericardial effusion. No evidence of RV dysfunction. Bones/joints: No acute fracture. No dislocation. Soft tissues: Unremarkable. Lymph nodes: Mildly prominent mediastinal lymph nodes are reidentified and are presumably reactive. Gallbladder and bile ducts: Prior cholecystectomy. Spleen: Splenic granulomas suggestive of prior granulomatous disease. Kidneys and ureters: Reidentified right renal cysts measuring up to 4. 1 centers. Tubes, lines and devices: Reidentified 6 mm solid pulmonary nodule within the right upper lobe (series 406 image 61). Reidentified 6 mm solid pulmonary nodule in the right middle lobe (series 46 image 89). 7 mm solid pulmonary nodule in the right lower lobe (series 46 image 111). ACR White Paper guidelines (MacMahon, et al. Radiology 2017; 284(1):228- 43) suggest the following. For high-risk patients (smoking history or other known risk factors) initial follow-up chest CT at 3-6 months and if unchanged, 18-24 months. IMPRESSION: 1. Borderline dilatation of the main pulmonary artery to 2.9 cm suggestive of pulmonary artery hypertension. 2. No evidence of pulmonary embolism. 3. Mildly prominent mediastinal lymph nodes are reidentified and are presumably reactive. 4. Reidentified severe centrilobular emphysema. 5. New small right pleural effusion. 6. Increased consolidation within the right upper lobe. This is most compatible with pneumonia. Cystic foci within this area of consolidation may represent cavitation although are favored to be related to the emphysema.
[2018-12-10] MEDS: IPRATROPIUM-ALBUTEROL 3 ML NEB INHALATION PRN ×4 (07:57→19:37)
[2018-12-10] MEDS ORDERED: predniSONE 20 MG TAB PO SCH (09:00)
[2018-12-10] MEDS ORDERED: HYDROCHLOROTHIAZIDE 25 MG TAB PO SCH (09:00)
[2018-12-10] MEDS: amLODIPine 5 MG TAB PO SCH (10:51)
[2018-12-10] MEDS: METOPROLOL SUCCINATE (ER) 25 MG TAB.ER.24H PO SCH (10:52)
[2018-12-10] MEDS: CEPHALEXIN 500 MG CAP PO SCH ×2 (10:52→18:49)
[2018-12-10] MEDS ORDERED: NALOXONE 0.4 MG/ML 1 ML VIAL IV PRN (19:57)
[2018-12-10] MEDS ORDERED: ALPRAZolam 0.25 MG TAB PO PRN (19:57)
[2018-12-10] MEDS ORDERED: CALCIUM CARBONATE 500 MG CHEWABLE PO PRN (19:57)
[2018-12-10] MEDS ORDERED: MAGNESIUM HYDROXIDE 2,400 MG/10 ML CUP PO PRN (19:57)
[2018-12-10] MEDS ORDERED: MELATONIN 3 MG TABLET PO PRN (19:57)
[2018-12-10] MEDS ORDERED: LACTULOSE 20 GM/30 ML CUP PO PRN (19:57)
[2018-12-10] MEDS ORDERED: ONDANSETRON 4 MG/2 ML VIAL IVP PRN (19:57)
[2018-12-10] MEDS: IPRATROPIUM-ALBUTEROL 3 ML NEB INHALATION SCH ×2 (20:20→23:19)
[2018-12-10] MEDS: BUDESONIDE 1 MG/2 ML NEBU INHALATION SCH (20:21)
[2018-12-10 20:42] LABS: Glucose,Whole Blood 184 mg/dL (75-99)
--- NOTE | 2018-12-10 20:56 | HP ---
HISTORY AND PHYSICAL DATE OF ADMISSION: 12/10/2018 DATE OF SERVICE: 12/10/2018 PRESENTING COMPLAINT: Cough, yellow sputum. HISTORY OF PRESENTING COMPLAINT: This is a 78-year-old patient of Dr. Neptali Ariza whose chronic stable medical conditions include COPD, hyperlipidemia, hypertension, osteoarthritis, diverticulosis, on home oxygen 2 L. Patient presents with increasing amount of cough, yellow sputum, chills. Appetite is fair. Also sinuses keep draining and she is congested, wheezing. Admitted for the same. Chest x-ray did show right upper lobe pneumonia with possible cavitation. Patient's appetite has been good. No weight loss. REVIEW OF SYSTEMS: CONSTITUTIONAL: Tired. HEENT: As above. RESPIRATORY: As above. CARDIOVASCULAR: None. GASTROINTESTINAL: None. GENITOURINARY: None. MUSCULOSKELETAL: Arthritic pain in joints. DERMATOLOGICAL: None. HEMATOLOGICAL: None. LYMPHATICS: None. PSYCHIATRY: None. NEUROLOGICAL: None. PAST MEDICAL HISTORY: 1. COPD. 2. Hyperlipidemia. 3. Hypertension. 4. Osteoarthritis. 5. Pneumonia. 6. Diverticulitis. 7. Home oxygen 2 L. 8. Left arm fracture. PAST SURGICAL HISTORY: 1. Appendectomy. 2. Bowel resection due to diverticulitis. 3. Cholecystectomy. 4. Cardiac catheterization. 5. Bilateral knee arthroscopy. 6. Sinus surgery. 7. Carpal tunnel. SOCIAL HISTORY: Lives alone. Patient smoked for about 39 years, stopped in 1997. She smoked less than a pack a day. No alcohol. FAMILY HISTORY: Twin sister had lung cancer. HOME MEDICATIONS: 1. Percocet 5 one tablet q.6 p.r.n. 2. Toprol XL 12.5 p.o. daily. 3. DuoNeb q.i.d. 4. Hydrochlorothiazide 25 mg p.o. daily. 5. Vitamin D3 2000 units p.o. at bedtime. 6. Keflex 500 mg p.o. t.i.d. 7. Symbicort 160/4.5 two puffs b.i.d. 8. Lipitor 10 mg at bedtime. 9. Norvasc 5 mg p.o. daily. 10.Ventolin HFA 2 puffs q.6 p.r.n. ALLERGIES: 1. AMOXICILLIN. 2. CLAVULANIC ACID. 3. LEVAQUIN. 4. LOSARTAN. 5. MOXIFLOXACIN. 6. NITROFURANTOIN. 7. HYDROCODONE. 8. SIMVASTATIN. PHYSICAL EXAMINATION: VITAL SIGNS ON PRESENTATION: Temperature 98.8, pulse 101, respiration 22, blood pressure 123/61, pulse ox 95% on 2 L. Pulse ox on room air 77%. GENERAL APPEARANCE: Average build. Sitting up, coughing. EYES: Pupils equal. Conjunctivae normal. HEENT: External appearance of nose and ears normal. Oral cavity with some thick yellow secretions in the posterior pharynx. RESPIRATORY: Effort increased. LUNGS: Diminished breath sounds. Prolonged expiration and wheezing. CARDIOVASCULAR: First and second sounds normal. No edema. ABDOMEN: Soft, non-tender. Liver and spleen not palpable. LYMPHATIC: No lymph node palpable in neck or axillae. PSYCHIATRY: Alert and oriented x3. Mood and affect normal. NEUROLOGICAL: Pupils equal. Cranial nerves grossly intact. Power and sensation grossly intact. INVESTIGATIONS: White count 9.8, hemoglobin 12.3, potassium 3.3, BUN 16, creatinine 0.57. EKG tracing, personally reviewed by me, shows normal sinus rhythm. Chest x-ray film, personally reviewed by me, shows a right upper lobe infiltrate with cavitation. Chest CTA shows severe centrilobular emphysema consolidation in right upper lobe. ASSESSMENT: 1. Right upper lobe pneumonia with possible cavitation. 2. Acute chronic obstructive pulmonary disease exacerbation in an ex-smoker. 3. Hyperlipidemia. 4. Essential hypertension. 5. Primary osteoarthritis. 6. Acute hypoxic respiratory failure from above. 7. Chronic hypoxic respiratory failure. Does use oxygen at home. PLAN: Patient was put on IV ceftriaxone. Sputum will be sent off for Gram stain and culture. Home medications are resumed. Steroids put on. Lovenox for DVT prophylaxis. Pulmonary is being consulted. Care was discussed with the patient. Questions were answered. MMODL / IJN: [id number] /
[2018-12-10] MEDS: LORATADINE-PSEUDOEPH 5-120 MG 1 EACH TAB.ER.12H PO SCH (21:26)
[2018-12-10] MEDS: ENOXAPARIN 40 MG/0.4 ML SYRINGE SQ SCH (21:26)
[2018-12-10] MEDS: INSULIN ASPART (NovoLOG) 100 UNIT/ML VIAL SQ SCH (21:27)
[2018-12-10] MEDS: methylPREDNISolone SOD SUCCI 40 MG/ML 1 ML VIAL IV SCH (21:27)
[2018-12-10] MEDS: ACETAMINOPHEN TAB 325 MG TAB PO PRN (21:41)
[2018-12-11] MEDS: methylPREDNISolone SOD SUCCI 40 MG/ML 1 ML VIAL IV SCH ×4 (02:27→23:36)
[2018-12-11] MEDS: IPRATROPIUM-ALBUTEROL 3 ML NEB INHALATION SCH ×5 (03:02→20:12)
[2018-12-11] MEDS: LORATADINE-PSEUDOEPH 5-120 MG 1 EACH TAB.ER.12H PO SCH ×2 (07:27→20:37)
[2018-12-11] MEDS: ENOXAPARIN 40 MG/0.4 ML SYRINGE SQ SCH (07:27)
[2018-12-11] MEDS: amLODIPine 5 MG TAB PO SCH (07:28)
[2018-12-11] MEDS: METOPROLOL SUCCINATE (ER) 25 MG TAB.ER.24H PO SCH (07:28)
[2018-12-11] MEDS: BUDESONIDE 1 MG/2 ML NEBU INHALATION SCH ×2 (07:28→20:12)
[2018-12-11 07:41] LABS: Glucose,Whole Blood 134 mg/dL (75-99)
[2018-12-11] MEDS: INSULIN ASPART (NovoLOG) 100 UNIT/ML VIAL SQ SCH ×4 (07:44→20:34)
[2018-12-11 11:06] LABS: Glucose,Whole Blood 157 mg/dL (75-99)
--- NOTE | 2018-12-11 11:07 | P.CNPUL ---
History of Present Illness Consult date: 12/11/18 Requesting physician: Gilberto Devi Reason for consult: dyspnea Chief complaint: Shortness of breath History of present illness: This is a very pleasant 78-year-old female patient who follows with Dr. Ariza as her primary care physician. She has a history of hypertension, hyperlipidemia, osteoarthritis, diverticulitis. She also has a history of oxygen dependent chronic obstructive pulmonary disease and follows with Dr. Sarabia in our office for the same. She quit smoking back in 1997. She recently cleared for a left wrist surgery following a fall and fracture. This was performed on 12/07/2018. She states since that time she had been having increasing shortness of breath, cough and congestion. She did wear her oxygen 01/05. She had also been admitted here in November 2018 for right upper lobe pneumonia. She did have a bronchoscopy with BAL and a October 2018 admission did not reveal any malignant cells. Yesterday's CT angiogram ruled out pulmonary embolism. She was found to have severe centrilobular emphysema. A small new right pleural effusion. There is increased consolidation in the right upper lobe which was seen at her previous admission. She is seen today in consultation on the regular medical floor. She is awake and alert in no acute distress. She is maintaining good O2 saturations in the mid 90s on 2 L/m per nasal cannula. She's been afebrile. Slightly hypertensive. Blood culture reveals no growth to date. White count 9.8. Hemoglobin 12.3. Creatinine 0.57. Urinalysis negative. Influenza screen negative. Review of Systems Constitutional: Reports fatigue, Reports weakness Eyes: denies blurred vision, denies decreased vision Ears: deny: decreased hearing Ears, nose, mouth and throat: Denies headache, Denies sore throat Cardiovascular: Reports dyspnea on exertion, Reports high blood pressure, Reports shortness of breath Respiratory: Reports cough, Reports dyspnea, Reports home oxygen, Reports wheezing Gastrointestinal: Denies abdominal pain, Denies diarrhea, Denies nausea, Denies vomiting Genitourinary: Denies dysuria, Denies hematuria Musculoskeletal: Reports fractures Musculoskeletal: left: wrist pain (Recent fracture with repair 12/07/2018) Integumentary: Denies pruritus, Denies rash Neurological: Denies numbness, Denies weakness Psychiatric: Denies anxiety, Denies depression Endocrine: Denies fatigue, Denies weight change Hematologic/Lymphatic: Reports as per HPI Allergic/Immunologic: Reports as per HPI Past Medical History Past Medical History: Asthma, COPD, Hyperlipidemia, Hypertension, Osteoarthritis (OA), Pneumonia, Respiratory Disorder Additional Past Medical History / Comment(s): diverticulitis. bronchitis, home 02 2 liters n/c as needed, lt arm fx 11/29/18 History of Any Multi-Drug Resistant Organisms: None Reported Past Surgical History: Appendectomy, Bowel Resection, Cholecystectomy, Heart Catheterization, Orthopedic Surgery, Tubal Ligation Additional Past Surgical History / Comment(s): 11/11/15 bronchoscopy and lavage, bowel resection due to diverticulitis 2012, bilat knee arthroscopy, sinus surgery, carpal tunnel left wrist, colonoscopy. Past Anesthesia/Blood Transfusion Reactions: No Reported Reaction Additional Past Anesthesia/Blood Transfusion Reaction / Comment(s): has never received blood Past Psychological History: No Psychological Hx Reported Additional Psychological History / Comment(s): Pt lives alone. She is independent. She uses no assistive device. She drives.has home 02 2 liters n/ c and nebulizer. Smoking Status: Former smoker Past Alcohol Use History: None Reported Additional Past Alcohol Use History / Comment(s): QUIT SMOKING 1997, STARTED AGE 18(1957) smoked <1ppd when she smoked Past Drug Use History: None Reported - Past Family History Mother Family Medical History: Myocardial Infarction ([place]) Additional Family Medical History / Comment(s): Mother of [place] at age 65 yrs. Sister(s) Family Medical History: Cancer Additional Family Medical History / Comment(s): Twin sister had LUNG cancer. Father Family Medical History: Cancer Additional Family Medical History / Comment(s): Father had cancer in his neck. Medications and Allergies Home Medications Medication Instructions Recorded Confirmed Type Hydrochlorothiazide [Hydrodiuril] 25 mg PO DAILY 01/01/17 12/10/18 History Cholecalciferol (Vitamin D3) 2,000 unit PO HS 09/25/17 12/10/18 History [Vitamin D3] Metoprolol Succinate [Toprol XL] 12.5 mg PO DAILY 09/25/17 12/10/18 History amLODIPine [Norvasc] 5 mg PO DAILY 09/25/17 12/10/18 History Albuterol Inhaler [Ventolin Hfa 2 puff INHALATION RT-Q6H PRN 02/09/18 12/10/18 History Inhaler] Budesonide-Formot 160-4.5 Mcg 2 puff INHALATION RT-BID 02/09/18 12/10/18 History [Symbicort 160-4.5 Mcg Inhaler] Atorvastatin [Lipitor] 10 mg PO HS 09/29/18 12/10/18 History Cephalexin [Keflex] 500 mg PO TID #21 cap 12/07/18 12/10/18 Rx Ipratropium-Albuterol Nebulize 3 ml INHALATION RT-QID 12/10/18 12/10/18 History [Duoneb 0.5 mg-3 mg/3 ml Soln] oxyCODONE-APAP 5-325MG [Percocet 1 tab PO Q6HR PRN 12/10/18 12/10/18 History 5-325 mg] Allergies Allergy/AdvReac Type Severity Reaction Status Date / Time amoxicillin [From Augmentin] Allergy Unknown Verified 12/10/18 08:15 clavulanic acid Allergy Unknown Verified 12/10/18 08:15 [From Augmentin] levofloxacin [From Levaquin] Allergy Unknown Verified 12/10/18 08:15 losartan Allergy Unknown Verified 12/10/18 08:15 moxifloxacin HCl Allergy Rash/Hives, Verified 12/10/18 08:15 [From Avelox] SWELLING nitrofurantoin Allergy Rash/Hives Verified 12/10/18 08:15 hydrocodone bitartrate AdvReac Nausea & Verified 12/10/18 08:15 [From Lortab] Vomiting simvastatin AdvReac muscle pain Verified 12/10/18 08:15 Crkvpwl-Lzi-Cvd Reductase AdvReac MUSCLE PAIN Verified 12/10/18 08:15 Inhibitor Physical Exam Vitals: Vital Signs Temp Pulse Pulse Resp BP Pulse Ox 12/11/18 07:58 95 12/11/18 07:53 86 12/11/18 07:34 84 12/11/18 05:40 173/88 12/11/18 05:00 97.5 F L 100 18 182/84 95 12/10/18 21:00 97.6 F 79 20 127/70 93 L 12/10/18 19:40 86 12/10/18 19:30 86 12/10/18 16:00 91 20 12/10/18 15:50 80 12/10/18 15:38 80 12/10/18 11:54 84 12/10/18 11:44 80 12/10/18 11:38 98 F 91 20 161/73 91 L Intake and Output 12/10/18 12/11/18 12/11/18 22:59 06:59 14:59 Intake Total 50 240 Balance 50 240 Intake: Intake, IV Titration 50 Amount cefTRIAXone 2 gm In 50 Sodium Chloride 0.9% 50 ml @ 100 mls/hr IVPB Q24HR [facility] Rx#:[id number] Oral 240 Other: Voiding Method Toilet # Voids 2 2 GENERAL EXAM: Alert, active, comfortable in no apparent distress. On 2 L nasal cannula HEAD: Normocephalic. EYES: Normal reaction of pupils, equal size. NOSE: Clear with pink turbinates. THROAT: No erythema or exudates. NECK: No masses, no JVD. CHEST: No chest wall deformity. LUNGS: Equal air entry with faint expiratory wheeze, diminished. CVS: S1 and S2 normal with no audible murmur, regular rhythm. ABDOMEN: No hepatosplenomegaly, normal bowel sounds, no guarding or rigidity. SPINE: No scoliosis or deformity SKIN: No rashes CENTRAL NERVOUS SYSTEM: No focal deficits, tone is normal in all 4 extremities. EXTREMITIES: Cast to the left wrist. There is no peripheral edema. No clubbing , no cyanosis. Peripheral pulses are intact. Results - Laboratory Findings CBC and BMP: 12/10/18 03:28 12/10/18 03:28 PT/INR, D-dimer PT 9.8 sec (9.0-12.0) 12/10/18 03:28 INR 0.9 (<1.2) 12/10/18 03:28 D-Dimer 5.32 mg/L FEU (<0.60) H 12/10/18 03:28 Abnormal lab findings: Abnormal Labs 12/10/18 12/10/18 12/10/18 03:28 03:28 03:28 RDW 15.6 H APTT 20.1 L D-Dimer 5.32 H Potassium 3.3 L Glucose 105 H POC Glucose (mg/dL) Total Protein 6.1 L Albumin 3.2 L 12/10/18 12/11/18 20:41 07:39 RDW APTT D-Dimer Potassium Glucose POC Glucose (mg/dL) 184 H 134 H Total Protein Albumin - Diagnostic Findings Chest x-ray: image reviewed CT scan - chest: image reviewed Assessment and Plan Assessment: Impression: #1 Acute on chronic hypoxic respiratory failure secondary to an acute exacerbation of chronic obstructive pulmonary disease, complicated by right upper lobe consolidation. Previous bronchoscopy with BAL in October 2018 revealed no evidence of malignant cells. #2 Chronic right upper lobe consolidation being followed in the outpatient setting, may require PET scan or bronchoscopy with biopsy. #3 Recent fall with fracture of the left wrist requiring surgical intervention on 12/07/2018. #4 Hypertension. #6 Remote history of chronic tobacco dependence. #7 Hyperlipidemia. #8 Osteoarthritis. #9 History of twin sister with lung cancer. Plan: The patient was seen and evaluated by Dr. Fowler. We'll treat her for her COPD exacerbation. Continue DuoNeb inhalations, Pulmicort inhalations, IV Solu- Medrol. Empiric antibiotics in the form of ceftriaxone. DVT prophylaxis with Lovenox. She will need further investigation this chronic right upper lobe consolidation in the outpatient setting. We will increase her activity as tolerated. Probable discharge in the a.m. I, the cosigning physician, performed a history & physical examination of the patient. Lungs sounds with bilateral end x-ray wheeze, diminished. Maintaining good O2 saturations in the 90s on 2 L/m per nasal cannula. I discussed the assessment and plan of care with my nurse practitioner, Malgorzata Dowell. I attest to the above consultation as dictated by her. Time with Patient: Greater than 30
[2018-12-11] MEDS: ACETAMINOPHEN TAB 325 MG TAB PO PRN ×2 (11:41→22:08)
[2018-12-11 17:35] LABS: Glucose,Whole Blood 143 mg/dL (75-99)
[2018-12-11 20:27] LABS: Glucose,Whole Blood 193 mg/dL (75-99)
[2018-12-12] MEDS: IPRATROPIUM-ALBUTEROL 3 ML NEB INHALATION SCH ×6 (00:02→20:49)
--- NOTE | 2018-12-12 02:22 | PN ---
PROGRESS NOTE DATE OF SERVICE: December 11, 2018. PRESENTING COMPLAINT: Cough, yellow sputum. INTERVAL HISTORY: The patient presented with sinus symptoms, right upper lobe pneumonia, COPD exacerbation. Feeling a bit better today. Cough is still present, some sputum production. REVIEW OF SYSTEMS: Done for constitutional, cardiovascular, GI, pulmonary; relevant findings as above. CURRENT MEDICATIONS: Reviewed that include IV ceftriaxone, Claritin-D, IV Solu-Medrol, bronchodilators. PHYSICAL EXAMINATION: VITAL SIGNS: Temperature 97, pulse 106, respiration 20, blood pressure 129/72, pulse ox 95 percent on 2 L. GENERAL APPEARANCE: Sitting up, awake. EYES: Pupils equal. Conjunctivae normal. NECK: JVD not raised. Mass not palpable. RESPIRATORY: Effort increased. LUNGS: Diminished breath sounds. Improved. Slightly improved air entry. Decreased wheezing. CARDIOVASCULAR: First and second sounds normal. No edema. ABDOMEN: Soft, nontender. Liver and spleen not palpable. PSYCHIATRY: Alert and oriented x3. Mood and affect normal. INVESTIGATIONS: Accu-Cheks are noted. ASSESSMENT: 1. Right upper lobe pneumonia with possible cavitation, slow to respond. 2. Acute chronic obstructive pulmonary disease exacerbation an ex-smoker, slow to respond. 3. Hyperlipidemia. 4. Essential hypertension. 5. Primary osteoarthritis. 6. Acute hypoxic respiratory failure from above. 7. Chronic hypoxic respiratory failure. PLAN: Continue with IV antibiotics and IV steroids, bronchodilators. Care was discussed with the patient. Encouraged to be out of bed. Follow with Pulmonary. MMODL / IJN: [id number] /
[2018-12-12 07:05] LABS: Glucose,Whole Blood 148 mg/dL (75-99)
[2018-12-12] MEDS: INSULIN ASPART (NovoLOG) 100 UNIT/ML VIAL SQ SCH ×4 (07:48→20:27)
[2018-12-12] MEDS: amLODIPine 5 MG TAB PO SCH (07:48)
[2018-12-12] MEDS: methylPREDNISolone SOD SUCCI 40 MG/ML 1 ML VIAL IV SCH (07:49)
[2018-12-12] MEDS: LORATADINE-PSEUDOEPH 5-120 MG 1 EACH TAB.ER.12H PO SCH ×2 (07:49→20:28)
[2018-12-12] MEDS: METOPROLOL SUCCINATE (ER) 25 MG TAB.ER.24H PO SCH (07:50)
[2018-12-12] MEDS: ENOXAPARIN 40 MG/0.4 ML SYRINGE SQ SCH (07:50)
[2018-12-12] MEDS: BUDESONIDE 1 MG/2 ML NEBU INHALATION SCH ×2 (08:15→20:49)
[2018-12-12 08:31] LABS: Basophils % (A) 0 %; Eosinophils % (A) 0 %; HCT 39.4 % (34.0-46.0); HGB 12.8 gm/dL (11.4-16.0); Lymphocytes # (A) 0.7 k/uL (1.0-4.8); Lymphocytes % (A) 5 %; MCH 29.7 pg (25.0-35.0); MCHC 32.5 g/dL (31.0-37.0); MCV 91.5 fL (80.0-100.0); Mean Platelet Volume 6.9; Monocytes # (A) 0.5 k/uL (0-1.0); Monocytes % (A) 4 %; Neutrophils # (A) 12.3 k/uL (1.3-7.7); Neutrophils % (A) 89 %; Platelet Count 458 k/uL (150-450); RBC 4.31 m/uL (3.80-5.40); RDW 15.5 % (11.5-15.5); WBC 13.8 k/uL (3.8-10.6)
[2018-12-12 08:45] LABS: Anion Gap 8 mmol/L; Blood Urea Nitrogen 16 mg/dL (7-17); Calcium 9.4 mg/dL (8.4-10.2); Carbon Dioxide 32 mmol/L (22-30); Chloride 101 mmol/L (98-107); Glucose 123 mg/dL (74-99); Potassium 3.8 mmol/L (3.5-5.1); Sodium 141 mmol/L (137-145)
[2018-12-12 11:06] LABS: Glucose,Whole Blood 154 mg/dL (75-99)
--- NOTE | 2018-12-12 12:16 | P.PN ---
Subjective Progress Note Date: 12/12/18 Principal diagnosis: Acute on chronic hypoxic respiratory failure secondary to acute exacerbation of COPD This is a very pleasant 78-year-old female patient who follows with Dr. Ariza as her primary care physician. She has a history of hypertension, hyperlipidemia, osteoarthritis, diverticulitis. She also has a history of oxygen dependent chronic obstructive pulmonary disease and follows with Dr. Sarabia in our office for the same. She quit smoking back in 1997. She recently cleared for a left wrist surgery following a fall and fracture. This was performed on 12/07/2018. She states since that time she had been having increasing shortness of breath, cough and congestion. She did wear her oxygen 01/05. She had also been admitted here in November 2018 for right upper lobe pneumonia. She did have a bronchoscopy with BAL and a October 2018 admission did not reveal any malignant cells. Yesterday's CT angiogram ruled out pulmonary embolism. She was found to have severe centrilobular emphysema. A small new right pleural effusion. There is increased consolidation in the right upper lobe which was seen at her previous admission. She is seen today in consultation on the regular medical floor. She is awake and alert in no acute distress. She is maintaining good O2 saturations in the mid 90s on 2 L/m per nasal cannula. She's been afebrile. Slightly hypertensive. Blood culture reveals no growth to date. White count 9.8. Hemoglobin 12.3. Creatinine 0.57. Urinalysis negative. Influenza screen negative. Patient was reevaluated today on 12/12/2018, feeling better, breathing easier, and today I discussed with the patient her CT of the chest findings, and the fact that she may eventually require a PET scan, and possibly a bronchoscopy and transbronchial biopsy which will be decided upon on outpatient basis by Dr. Sarabia. Patient is actually improving her shortness of breath is better, and I believe the patient could be considered for discharge tomorrow, and follow-up on outpatient basis with Dr. Sarabia patient already had a previous bronchoscopy and lavage of the right upper lobe, and this was nondiagnostic. She may eventually require a PET scan and possibly a bronchoscopy with transbronchial biopsy depending on the PET scan findings. Objective - Vital Signs Vital signs: Vital Signs Temp 98 F 12/12/18 05:00 Pulse 100 12/12/18 11:47 Resp 20 12/12/18 05:00 BP 148/70 12/12/18 07:45 Pulse Ox 93 L 12/12/18 08:17 Intake & Output 12/11/18 12/12/18 12/12/18 18:59 06:59 18:59 Intake Total 1130 540 Balance 1130 540 Intake: Intake, IV Titration 50 Amount cefTRIAXone 2 gm In 50 Sodium Chloride 0.9% 50 ml @ 100 mls/hr IVPB Q24HR [facility] Rx#:[id number] Oral 1080 540 Other: Voiding Method Toilet Toilet Toilet # Voids 3 1 - Exam Physical Exam: Revealed a 78-year-old female in no distress. Head: Atraumatic normocephalic. HEENT:[Neck is supple.] [No neck masses.] [No thyromegaly.] [No JVD.] Chest: [Clear throughout, no crackles, no rhonchi, no wheezes.] Cardiac Exam: [Normal S1 and S2, no S3 gallop, no murmur.] Abdomen: Diminished breath sound bilaterally no crackles or rhonchi or wheezes. Extremities: [No clubbing, no edema, no cyanosis.] Neurological Exam: [No focal neurologic deficit.] Alert and oriented 3. Psychiatric: Normal mood affect and mental status examination. Lymphatics: No lymphadenopathy. Skin: No rashes - Labs CBC & Chem 7: 12/12/18 07:22 12/12/18 07:22 Labs: Abnormal Lab Results - Last 24 Hours (Table) 12/11/18 12/11/18 12/12/18 Range/Units 17:31 20:22 07:04 WBC (3.8-10.6) k/uL Plt Count (150-450) k/uL Neutrophils # (1.3-7.7) k/uL Lymphocytes # (1.0-4.8) k/uL Carbon Dioxide (22-30) mmol/L Creatinine (0.52-1.04) mg/dL Glucose (74-99) mg/dL POC Glucose (mg/dL) 143 H 193 H 148 H (75-99) mg/dL 12/12/18 12/12/18 12/12/18 Range/Units 07:22 07:22 11:05 WBC 13.8 H (3.8-10.6) k/uL Plt Count 458 H (150-450) k/uL Neutrophils # 12.3 H (1.3-7.7) k/uL Lymphocytes # 0.7 L (1.0-4.8) k/uL Carbon Dioxide 32 H (22-30) mmol/L Creatinine 0.44 L (0.52-1.04) mg/dL Glucose 123 H (74-99) mg/dL POC Glucose (mg/dL) 154 H (75-99) mg/dL Microbiology - Last 24 Hours (Table) 12/10/18 03:28 Blood Culture - Preliminary Blood No Growth after 48 hours 12/11/18 11:25 Gram Stain - Preliminary Sputum Assessment and Plan Assessment: #1 Acute on chronic hypoxic respiratory failure secondary to an acute exacerbation of chronic obstructive pulmonary disease, complicated by right upper lobe consolidation. Previous bronchoscopy with BAL in October 2018 revealed no evidence of malignant cells. The differential diagnoses for the right upper lobe consolidation could be related to post inflammatory change could also be related to underlying malignancy. Hence I had a long discussion with the patient regarding the findings, and it is best followed on outpatient basis. I will clear the patient for discharge likely tomorrow, and she should follow up with Dr. Sarabia. #2 Chronic right upper lobe consolidation being followed in the outpatient setting, may require PET scan or bronchoscopy with biopsy. #3 Recent fall with fracture of the left wrist requiring surgical intervention on 12/07/2018. #4 Hypertension. #6 Remote history of chronic tobacco dependence. #7 Hyperlipidemia. #8 Osteoarthritis. #9 History of twin sister with lung cancer. Plan: Continue present course of treatment for her COPD, continue empiric antibiotics, continue DVT prophylaxis, we'll clear the patient for discharge tomorrow morning, and must follow-up with Dr. Sarabia on outpatient basis. Again the patient will likely require a PET scan, and bronchoscopy transbronchial biopsy to be done on outpatient basis. Time with Patient: Less than 30
[2018-12-12] MEDS: predniSONE 10 MG TAB PO SCH (12:52)
[2018-12-12] MEDS: ACETAMINOPHEN TAB 325 MG TAB PO PRN ×2 (12:53→20:28)
[2018-12-12 17:06] LABS: Glucose,Whole Blood 159 mg/dL (75-99)
[2018-12-12 20:02] LABS: Glucose,Whole Blood 318 mg/dL (75-99)
--- NOTE | 2018-12-12 23:47 | PN ---
PROGRESS NOTE DATE OF SERVICE: 12/12/2018. PRESENTING COMPLAINT: Cough with sputum. INTERVAL HISTORY: Patient presented with sinus symptoms, right upper lobe pneumonia, COPD exacerbation. Continues to improve. Sputum production is gone down. Appetite is getting better. Has been out of bed. REVIEW OF SYSTEMS: Done for constitutional, cardiovascular, GI, pulmonary; relevant findings as above. CURRENT MEDICATIONS: Reviewed, that include bronchodilators, oral prednisone, IV ceftriaxone, Claritin-D. PHYSICAL EXAMINATION: VITAL SIGNS: Temperature 97.8, pulse 103, respiration 16, blood pressure 149/75, pulse ox 92 percent on room air. GENERAL APPEARANCE: Sitting up, looking better. EYES: Pupils equal. Conjunctivae normal. NECK: JVD not raised. Mass not palpable. RESPIRATORY: Effort increased. LUNGS: Decreased breath sounds, less wheezing. CARDIOVASCULAR: 1st and 2nd sounds, no edema. ABDOMEN: Soft, nontender. Liver and spleen not palpable. PSYCHIATRY: Alert and oriented x3. Mood and affect normal. INVESTIGATIONS: White count 13.8, potassium 3.8, BUN 16, creatinine 0.44. Blood and sputum cultures are pending. ASSESSMENT: 1. Right lower lobe pneumonia with possible cavitation with good clinical response. 2. Acute chronic obstructive pulmonary disease exacerbation in an ex-smoker, responding. 3. Hyperlipidemia. 4. Essential hypertension. 5. Primary osteoarthritis. 6. Acute asthma. 7. Acute hypoxic respiratory failure from above. 8. Chronic hypoxic respiratory failure. PLAN: Patient is responding. Has been switched over to oral prednisone. IV antibiotics to continue. Hoping patient can be discharged tomorrow. The patient will need workup further for right upper lobe, including bronchoscopy, etc. MMODL / IJN: [id number] /
[2018-12-13] MEDS: IPRATROPIUM-ALBUTEROL 3 ML NEB INHALATION SCH ×4 (00:36→10:30)
[2018-12-13 06:46] LABS: Glucose,Whole Blood 92 mg/dL (75-99)
[2018-12-13] MEDS: BUDESONIDE 1 MG/2 ML NEBU INHALATION SCH (07:15)
[2018-12-13] MEDS: INSULIN ASPART (NovoLOG) 100 UNIT/ML VIAL SQ SCH ×2 (07:27→12:52)
[2018-12-13] MEDS: amLODIPine 5 MG TAB PO SCH (07:31)
[2018-12-13] MEDS: predniSONE 10 MG TAB PO SCH (07:31)
[2018-12-13] MEDS: METOPROLOL SUCCINATE (ER) 25 MG TAB.ER.24H PO SCH (07:31)
[2018-12-13] MEDS: ENOXAPARIN 40 MG/0.4 ML SYRINGE SQ SCH (07:31)
[2018-12-13] MEDS: LORATADINE-PSEUDOEPH 5-120 MG 1 EACH TAB.ER.12H PO SCH (07:32)
[2018-12-13 09:31] LABS: Blood Urea Nitrogen 15 mg/dL (7-17); Calcium 9.2 mg/dL (8.4-10.2); Carbon Dioxide 28 mmol/L (22-30); Glucose 89 mg/dL (74-99); Sodium 140 mmol/L (137-145)
[2018-12-13 09:33] LABS: Anion Gap 10 mmol/L; Chloride 102 mmol/L (98-107)
[2018-12-13 09:45] LABS: Potassium 3.3 mmol/L (3.5-5.1)
--- NOTE | 2018-12-13 11:18 | P.PN ---
Subjective Progress Note Date: 12/13/18 Principal diagnosis: Acute on chronic hypoxic respiratory failure secondary to acute exacerbation of COPD This is a very pleasant 78-year-old female patient who follows with Dr. Ariza as her primary care physician. She has a history of hypertension, hyperlipidemia, osteoarthritis, diverticulitis. She also has a history of oxygen dependent chronic obstructive pulmonary disease and follows with Dr. Sarabia in our office for the same. She quit smoking back in 1997. She recently cleared for a left wrist surgery following a fall and fracture. This was performed on 12/07/2018. She states since that time she had been having increasing shortness of breath, cough and congestion. She did wear her oxygen 01/05. She had also been admitted here in November 2018 for right upper lobe pneumonia. She did have a bronchoscopy with BAL and a October 2018 admission did not reveal any malignant cells. Yesterday's CT angiogram ruled out pulmonary embolism. She was found to have severe centrilobular emphysema. A small new right pleural effusion. There is increased consolidation in the right upper lobe which was seen at her previous admission. She is seen today in consulta tion on the regular medical floor. She is awake and alert in no acute distress. She is maintaining good O2 saturations in the mid 90s on 2 L/m per nasal cannula. She's been afebrile. Slightly hypertensive. Blood culture reveals no growth to date. White count 9.8. Hemoglobin 12.3. Creatinine 0.57. Urinalysis negative. Influenza screen negative. Patient was reevaluated today on 12/12/2018, feeling better, breathing easier, and today I discussed with the patient her CT of the chest findings, and the fact that she may eventually require a PET scan, and possibly a bronchoscopy and transbronchial biopsy which will be decided upon on outpatient basis by Dr. Sarabia. Patient is actually improving her shortness of breath is better, and I believe the patient could be considered for discharge tomorrow, and follow-up on outpatient basis with Dr. Sarabia patient already had a previous bronchoscopy and lavage of the right upper lobe, and this was nondiagnostic. She may eventually require a PET scan and possibly a bronchoscopy with transbronchial biopsy depending on the PET scan findings. The patient is seen today 12/13/2017 in follow-up on the regular medical floor. She is currently sitting up in a chair at the bedside. Awake and alert in no acute distress. She denies any worsening shortness of breath, cough or congestion. No chills or night sweats. She is feeling back to her baseline. She is maintaining O2 saturations in the 90s on 2 L/m per nasal cannula. She's been afebrile. Blood cultures reveal no growth. Sputum culture reveals no growth. She remains on bronchodilators, prednisone, antibiotics in the form of ceftriaxone. Objective - Vital Signs Vital signs: Vital Signs Temp 97.6 F 12/13/18 04:55 Pulse 96 12/13/18 10:42 Resp 16 12/13/18 04:55 BP 178/91 12/13/18 04:55 Pulse Ox 96 12/13/18 04:55 Intake & Output 12/12/18 12/13/18 12/13/18 18:59 06:59 18:59 Intake Total 50 950 Balance 50 950 Intake: Intake, IV Titration 50 Amount cefTRIAXone 2 gm In 50 Sodium Chloride 0.9% 50 ml @ 100 mls/hr IVPB Q24HR [facility] Rx#:[id number] Oral 950 Other: Voiding Method Toilet Toilet Toilet # Voids 2 - Exam GENERAL EXAM: Alert, active, comfortable in no apparent distress. On 2 L nasal cannula HEAD: Normocephalic. EYES: Normal reaction of pupils, equal size. NOSE: Clear with pink turbinates. THROAT: No erythema or exudates. NECK: No masses, no JVD. CHEST: No chest wall deformity. LUNGS: Equal air entry with faint expiratory wheeze, diminished. CVS: S1 and S2 normal with no audible murmur, regular rhythm. ABDOMEN: No hepatosplenomegaly, normal bowel sounds, no guarding or rigidity. SPINE: No scoliosis or deformity SKIN: No rashes CENTRAL NERVOUS SYSTEM: No focal deficits, tone is normal in all 4 extremities. EXTREMITIES: Cast to the left wrist. There is no peripheral edema. No clubbing, no cyanosis. Peripheral pulses are intact. - Labs CBC & Chem 7: 12/12/18 07:22 12/13/18 07:55 Labs: Abnormal Lab Results - Last 24 Hours (Table) 12/12/18 12/12/18 12/13/18 Range/Units 17:00 20:00 07:55 Potassium 3.3 L (3.5-5.1) mmol/L Creatinine 0.47 L (0.52-1.04) mg/dL POC Glucose (mg/dL) 159 H 318 H (75-99) mg/dL Microbiology - Last 24 Hours (Table) 12/10/18 03:28 Blood Culture - Preliminary Blood No Growth after 72 hours 12/11/18 11:25 Gram Stain - Preliminary Sputum Sputum Culture - Preliminary Assessment and Plan Assessment: Impression: #1 Acute on chronic hypoxic respiratory failure secondary to an acute exacerbation of chronic obstructive pulmonary disease, complicated by right upper lobe consolidation. Previous bronchoscopy with BAL in October 2018 revealed no evidence of malignant cells. #2 Chronic right upper lobe consolidation being followed in the outpatient setting, may require PET scan or bronchoscopy with biopsy. #3 Recent fall with fracture of the left wrist requiring surgical intervention on 12/07/2018. #4 Hypertension. #6 Remote history of chronic tobacco dependence. #7 Hyperlipidemia. #8 Osteoarthritis. #9 History of twin sister with lung cancer. Plan: The patient was seen and evaluated by Dr. Fowler. She is cleared for discharge from the pulmonary standpoint. Follow up with Dr. Sarabia in our office on 12/24/2018. Continue her home pulmonary medications. Complete a course of antibiotics. Complete a prednisone taper. She is encouraged to call sooner with any recurrence of symptoms or other questions or concerns. I, the cosigning physician, performed a history & physical examination of the patient. Lungs sounds diminished. Maintaining good O2 saturations in the 90s on 2 L/m per nasal cannula. I discussed the assessment and plan of care with my nurse practitioner, Malgorzata Dowell. I attest to the above note as dictated by her.
[2018-12-13 11:56] LABS: Glucose,Whole Blood 115 mg/dL (75-99)
[2018-12-13 13:19] VITALS: BP 138/69; PULSE 100; RESP 18; TEMP 98.1
--- NOTE | 2018-12-16 08:32 | DS ---
DISCHARGE SUMMARY DATE OF ADMISSION: December 10, 2018 DATE OF DISCHARGE: December 13, 2018. FINAL DIAGNOSES: 1. Right upper lobe pneumonia with cavitation, POA. 2. Acute chronic obstructive pulmonary disease exacerbation in an ex-smoker. 3. Hyperlipidemia. 4. Essential hypertension. 5. Primary osteoarthritis. 6. Acute hypoxic respiratory failure from above. 7. Chronic hypoxic respiratory failure from underlying chronic obstructive pulmonary disease. 8. Acute sinusitis. HOSPITAL COURSE: This patient presented with congestion, cough, fever, chills. Found to have a right upper lobe lesion. Treated with antibiotics, steroids and bronchodilators to which she responded well. Cultures were all negative. Doing much better at the time of discharge. Patient will need outpatient further workup by Pulmonary for the right upper x-ray findings. PHYSICAL EXAMINATION: VITAL SIGNS: Temperature 98.1, pulse 100, respiratory 18, blood pressure 138/69, pulse ox 91 percent on room air. Lungs improved air entry. Cardiovascular: 1st and 2nd sounds normal. INVESTIGATIONS: BUN 15, creatinine 0.47. Cultures were negative. CONSULTATION: Dr. Fowler from Pulmonary. DISCHARGE MEDICATIONS: 1. Hydrochlorothiazide 25 mg p.o. daily. 2. Vitamin D3 2000 units p.o. q.h.s. 3. Toprol-XL 12.5 p.o. daily. 4. Norvasc 5 mg p.o. daily. 5. Ventolin HFA 2 puffs q.6h p.r.n. 6. Symbicort 160/4.5, 2 puffs b.i.d. 7. Lipitor 10 mg q.h.s. 8. DuoNeb q.i.d. 9. Percocet 5 one tablet q.6h p.r.n. 10.Ceftin 500 mg p.o. b.i.d. 10 tablets. 11.Prednisone taper. FOLLOWUP: Follow up with Dr. Sarabia on December 19, 2018, follow up with Dr. Ariza on December 20, 2018. Discussion and discharge planning more than [address] Ariza. AZIZA / [place]: [id number] /
== END 2018-12-13 14:44 | disposition home or self-care (01) | DRG 193 ==
LOC: EC 02:37 → 3NMEDONC 05:50
PROVIDERS: ADMIT Hospitalist; ATTEND Hospitalist
DX: J18.9 Pneumonia, unspecified organism (principal); J96.21 Acute and chronic respiratory failure with hypoxia; J44.0 Chronic obstructive pulmonary disease with (acute) lower respiratory infection; J44.1 Chronic obstructive pulmonary disease with (acute) exacerbation; J90 Pleural effusion, not elsewhere classified; Z87.891 Personal history of nicotine dependence; Z99.81 Dependence on supplemental oxygen; E78.5 Hyperlipidemia, unspecified; I10 Essential (primary) hypertension; K57.90 Diverticulosis of intestine, part unspecified, without perforation or abscess without bleeding; M19.90 Unspecified osteoarthritis, unspecified site; R79.1 Abnormal coagulation profile; Z79.51 Long term (current) use of inhaled steroids; Z79.899 Other long term (current) drug therapy; Z80.1 Family history of malignant neoplasm of trachea, bronchus and lung; Z82.49 Family history of ischemic heart disease and other diseases of the circulatory system; Z90.49 Acquired absence of other specified parts of digestive tract; Z88.1 Allergy status to other antibiotic agents; Z88.0 Allergy status to penicillin; S62.102D Fracture of unspecified carpal bone, left wrist, subsequent encounter for fracture with routine healing; W18.30XD Fall on same level, unspecified, subsequent encounter; Z60.2 Problems related to living alone; Z88.8 Allergy status to other drugs, medicaments and biological substances
CPT/HCPCS: 36415; 71046; 71275; 80048; 80053; 81003; 82553; 83605; 84484; 85025; 85379; 85610; 85730; 87040; 87070; 87205; 87502; 93005; 94640; 94760; 94762; 96360; 96361; 99285

== ENCOUNTER 2018-12-26 12:47 | Inpatient (IN) | payer MEDICARE ==
[2018-12-26] MEDS ORDERED: ACETAMINOPHEN TAB 500 MG TAB PO STA (13:22)
[2018-12-26] MEDS ORDERED: IBUPROFEN 600 MG TAB PO STA (13:22)
[2018-12-26] MEDS ORDERED: methylPREDNISolone SOD SUCCI 125 MG/2 ML VIAL IV STA (13:24)
[2018-12-26] MEDS ORDERED: IPRATROPIUM-ALBUTEROL 3 ML NEB INHALATION STA (13:24)
--- NOTE | 2018-12-26 13:34 | ED ---
General Adult HPI - General Chief complaint: Shortness of Breath Stated complaint: ELIAS Time Seen by Provider: 12/26/18 12:50 Source: patient, RN notes reviewed Mode of arrival: ambulatory - History of Present Illness Initial comments: This is a 78-year-old female presents emergency Department complaining of shortness of breath. Patient states this worsened over the last couple of days. Patient states she was diagnosed with pneumonia 2 weeks ago and her symptoms have improved but over the last couple days of gotten worse. Patient states she's had a fever again coughing a lot and very short of breath. Patient states her primary medical care doctor today and they sent her into the emergency department. Patient states she's already been treated with antibiotics for the pneumonia. Patient denies any chest pain or palpitations. Patient denies abdominal pain patient has nausea vomiting diarrhea. Patient denies any lightheadedness dizziness or near syncopal episode. Patient denies any swelling to legs or calf tenderness. She states she was tested for influenza and it was negative. - Related Data Home Medications Medication Instructions Recorded Confirmed Hydrochlorothiazide [Hydrodiuril] 25 mg PO DAILY 01/01/17 12/26/18 Cholecalciferol (Vitamin D3) 2,000 unit PO HS 09/25/17 12/26/18 [Vitamin D3] Metoprolol Succinate [Toprol XL] 12.5 mg PO DAILY 09/25/17 12/26/18 amLODIPine [Norvasc] 5 mg PO DAILY 09/25/17 12/26/18 Albuterol Inhaler [Ventolin Hfa 2 puff INHALATION RT-Q6H PRN 02/09/18 12/26/18 Inhaler] Budesonide-Formot 160-4.5 Mcg 2 puff INHALATION RT-BID 02/09/18 12/26/18 [Symbicort 160-4.5 Mcg Inhaler] Atorvastatin [Lipitor] 10 mg PO HS 09/29/18 12/26/18 Ipratropium-Albuterol Nebulize 3 ml INHALATION RT-QID 12/10/18 12/26/18 [Duoneb 0.5 mg-3 mg/3 ml Soln] Budesonide/Formoterol Fumarate 2 puff INHALATION RT-DAILY 12/26/18 12/26/18 [Symbicort 160-4.5 Mcg Inhaler] Calcium Carbonate [Calcium] 600 mg PO DAILY 12/26/18 12/26/18 Allergies Allergy/AdvReac Type Severity Reaction Status Date / Time amoxicillin [From Augmentin] Allergy Unknown Verified 12/26/18 13:18 clavulanic acid Allergy Unknown Verified 12/26/18 13:18 [From Augmentin] levofloxacin [From Levaquin] Allergy Unknown Verified 12/26/18 13:18 losartan Allergy Unknown Verified 12/26/18 13:18 moxifloxacin HCl Allergy Rash/Hives, Verified 12/26/18 13:18 [From Avelox] SWELLING nitrofurantoin Allergy Rash/Hives Verified 12/26/18 13:18 hydrocodone bitartrate AdvReac Nausea & Verified 12/26/18 13:18 [From Lortab] Vomiting simvastatin AdvReac muscle pain Verified 12/26/18 13:18 Knfswyj-Mkt-Zvz Reductase AdvReac MUSCLE PAIN Verified 12/26/18 13:18 Inhibitor Review of Systems ROS Statement: Those systems with pertinent positive or pertinent negative responses have been documented in the HPI. ROS Other: All systems not noted in ROS Statement are negative. Past Medical History Past Medical History: Asthma, COPD, Hyperlipidemia, Hypertension, Osteoarthritis (OA), Pneumonia, Respiratory Disorder Additional Past Medical History / Comment(s): diverticulitis. bronchitis, home 02 2 liters n/c as needed, lt arm fx 11/29/18 History of Any Multi-Drug Resistant Organisms: None Reported Past Surgical History: Appendectomy, Bowel Resection, Cholecystectomy, Heart Catheterization, Orthopedic Surgery, Tubal Ligation Additional Past Surgical History / Comment(s): 11/11/15 bronchoscopy and lavage, bowel resection due to diverticulitis 2012, bilat knee arthroscopy, sinus surgery, carpal tunnel left wrist, colonoscopy. Past Anesthesia/Blood Transfusion Reactions: No Reported Reaction Additional Past Anesthesia/Blood Transfusion Reaction / Comment(s): has never received blood Past Psychological History: No Psychological Hx Reported Smoking Status: Former smoker Past Alcohol Use History: None Reported Past Drug Use History: None Reported - Past Family History Mother Family Medical History: Myocardial Infarction (SD) Additional Family Medical History / Comment(s): Mother of SD at age 65 yrs. Sister(s) Family Medical History: Cancer Additional Family Medical History / Comment(s): Twin sister had LUNG cancer. Father Family Medical History: Cancer Additional Family Medical History / Comment(s): Father had cancer in his neck. General Exam - General Exam Comments Initial Comments: GENERAL: Patient is well-developed and well-nourished. Patient is nontoxic and well- hydrated and is in mild distress. ENT: Neck is soft and supple. No significant lymphadenopathy is noted. Oropharynx is clear. Moist mucous membranes. Neck has full range of motion without eliciting any pain. EYES: The sclera were anicteric and conjunctiva were pink and moist. Extraocular movements were intact and pupils were equal round and reactive to light. Eyelids were unremarkable. PULMONARY: Decreased breath sounds. Scattered expiratory wheezing CARDIOVASCULAR: There is a regular rate and rhythm without any murmurs gallops or rubs. ABDOMEN: Soft and nontender with normal bowel sounds. No palpable organomegaly was noted. There is no palpable pulsatile mass. SKIN: Skin is clear with no lesions or rashes and otherwise unremarkable. NEUROLOGIC: Patient is alert and oriented x3. Cranial nerves II through XII are grossly intact. Motor and sensory are also intact. Normal speech, volume and content. Symmetrical smile. MUSCULOSKELETAL: Normal extremities with adequate strength and full range of motion. No lower extremity swelling or edema. No calf tenderness. LYMPHATICS: No significant lymphadenopathy is noted PSYCHIATRIC: Normal psychiatric evaluation. Course Vital Signs 12/26/18 12/26/18 12/26/18 12:49 13:07 13:24 Temperature 98.4 F 100.7 F H Pulse Rate 92 Respiratory 18 18 Rate Blood Pressure 136/74 O2 Sat by Pulse 88 L Oximetry 12/26/18 12/26/18 14:01 15:23 Temperature 98.2 F Pulse Rate 102 H 89 Respiratory 20 Rate Blood Pressure 110/59 O2 Sat by Pulse 98 Oximetry Medical Decision Making - Medical Decision Making EKG shows normal sinus rhythm at 96 bpm MA interval is 140 QRS is 90 QT interval 346 QTC is 437. Patient's EKG shows no ST segment elevation or depression or T wave abnormalities are noted. Chest x-ray shows a right upper lobe cavitary lesion. I spoke with Dr. Devi patient will be admitted and pulmonary consult. - Lab Data Result diagrams: 12/26/18 13:50 12/26/18 13:50 Lab Results 12/26/18 12/26/18 12/26/18 Range/Units 13:50 13:50 13:50 WBC 7.4 (3.8-10.6) k/uL RBC 4.08 (3.80-5.40) m/uL Hgb 11.9 (11.4-16.0) gm/dL Hct 37.2 (34.0-46.0) % MCV 91.2 (80.0-100.0) fL MCH 29.2 (25.0-35.0) pg MCHC 32.0 (31.0-37.0) g/dL RDW 15.8 H (11.5-15.5) % Plt Count 415 (150-450) k/uL Neutrophils % 77 % Lymphocytes % 11 % Monocytes % 7 % Eosinophils % 2 % Basophils % 1 % Neutrophils # 5.8 (1.3-7.7) k/uL Lymphocytes # 0.8 L (1.0-4.8) k/uL Monocytes # 0.5 (0-1.0) k/uL Eosinophils # 0.1 (0-0.7) k/uL Basophils # 0.1 (0-0.2) k/uL PT (9.0-12.0) sec INR (<1.2) APTT (22.0-30.0) sec Sodium 137 (137-145) mmol/L Potassium 3.7 (3.5-5.1) mmol/L Chloride 102 (98-107) mmol/L Carbon Dioxide 26 (22-30) mmol/L Anion Gap 9 mmol/L BUN 11 (7-17) mg/dL Creatinine 0.55 (0.52-1.04) mg/dL Est GFR (CKD-EPI)AfAm >90 (>60 ml/min/1.73 sqM) Est GFR (CKD-EPI)NonAf >90 (>60 ml/min/1.73 sqM) Glucose 102 H (74-99) mg/dL Plasma Lactic Acid Carlos (0.7-2.0) mmol/L Calcium 9.2 (8.4-10.2) mg/dL Total Bilirubin 0.7 (0.2-1.3) mg/dL AST 23 (14-36) U/L ALT 39 (9-52) U/L Alkaline Phosphatase 85 (38-126) U/L Troponin I (0.000-0.034) ng/mL Total Protein 6.3 (6.3-8.2) g/dL Albumin 3.3 L (3.5-5.0) g/dL Urine Color Urine Appearance (Clear) Urine pH (5.0-8.0) Ur Specific [place] (1.001-1.035) Urine Protein (Negative) Urine Glucose (UA) (Negative) Urine Ketones (Negative) Urine Blood (Negative) Urine Nitrite (Negative) Urine Bilirubin (Negative) Urine Urobilinogen (<2.0) mg/dL Ur Leukocyte Esterase (Negative) Influenza Type A RNA Not Detected (Not Detectd) Influenza Type B (PCR) Not Detected (Not Detectd) 12/26/18 12/26/18 12/26/18 Range/Units 13:50 13:50 13:50 WBC (3.8-10.6) k/uL RBC (3.80-5.40) m/uL Hgb (11.4-16.0) gm/dL Hct (34.0-46.0) % MCV (80.0-100.0) fL MCH (25.0-35.0) pg MCHC (31.0-37.0) g/dL RDW (11.5-15.5) % Plt Count (150-450) k/uL Neutrophils % % Lymphocytes % % Monocytes % % Eosinophils % % Basophils % % Neutrophils # (1.3-7.7) k/uL Lymphocytes # (1.0-4.8) k/uL Monocytes # (0-1.0) k/uL Eosinophils # (0-0.7) k/uL Basophils # (0-0.2) k/uL PT 10.2 (9.0-12.0) sec INR 0.9 (<1.2) APTT 22.6 (22.0-30.0) sec Sodium (137-145) mmol/L Potassium (3.5-5.1) mmol/L Chloride (98-107) mmol/L Carbon Dioxide (22-30) mmol/L Anion Gap mmol/L BUN (7-17) mg/dL Creatinine (0.52-1.04) mg/dL Est GFR (CKD-EPI)AfAm (>60 ml/min/1.73 sqM) Est GFR (CKD-EPI)NonAf (>60 ml/min/1.73 sqM) Glucose (74-99) mg/dL Plasma Lactic Acid Carlos 1.1 (0.7-2.0) mmol/L Calcium (8.4-10.2) mg/dL Total Bilirubin (0.2-1.3) mg/dL AST (14-36) U/L ALT (9-52) U/L Alkaline Phosphatase (38-126) U/L Troponin I <0.012 (0.000-0.034) ng/mL Total Protein (6.3-8.2) g/dL Albumin (3.5-5.0) g/dL Urine Color Urine Appearance (Clear) Urine pH (5.0-8.0) Ur Specific [place] (1.001-1.035) Urine Protein (Negative) Urine Glucose (UA) (Negative) Urine Ketones (Negative) Urine Blood (Negative) Urine Nitrite (Negative) Urine Bilirubin (Negative) Urine Urobilinogen (<2.0) mg/dL Ur Leukocyte Esterase (Negative) Influenza Type A RNA (Not Detectd) Influenza Type B (PCR) (Not Detectd) 12/26/18 Range/Units 15:17 WBC (3.8-10.6) k/uL RBC (3.80-5.40) m/uL Hgb (11.4-16.0) gm/dL Hct (34.0-46.0) % MCV (80.0-100.0) fL MCH (25.0-35.0) pg MCHC (31.0-37.0) g/dL RDW (11.5-15.5) % Plt Count (150-450) k/uL Neutrophils % % Lymphocytes % % Monocytes % % Eosinophils % % Basophils % % Neutrophils # (1.3-7.7) k/uL Lymphocytes # (1.0-4.8) k/uL Monocytes # (0-1.0) k/uL Eosinophils # (0-0.7) k/uL Basophils # (0-0.2) k/uL PT (9.0-12.0) sec INR (<1.2) APTT (22.0-30.0) sec Sodium (137-145) mmol/L Potassium (3.5-5.1) mmol/L Chloride (98-107) mmol/L Carbon Dioxide (22-30) mmol/L Anion Gap mmol/L BUN (7-17) mg/dL Creatinine (0.52-1.04) mg/dL Est GFR (CKD-EPI)AfAm (>60 ml/min/1.73 sqM) Est GFR (CKD-EPI)NonAf (>60 ml/min/1.73 sqM) Glucose (74-99) mg/dL Plasma Lactic Acid Carlos (0.7-2.0) mmol/L Calcium (8.4-10.2) mg/dL Total Bilirubin (0.2-1.3) mg/dL AST (14-36) U/L ALT (9-52) U/L Alkaline Phosphatase (38-126) U/L Troponin I (0.000-0.034) ng/mL Total Protein (6.3-8.2) g/dL Albumin (3.5-5.0) g/dL Urine Color Yellow Urine Appearance Clear (Clear) Urine pH 6.0 (5.0-8.0) Ur Specific [place] 1.015 (1.001-1.035) Urine Protein Negative (Negative) Urine Glucose (UA) Negative (Negative) Urine Ketones Negative (Negative) Urine Blood Negative (Negative) Urine Nitrite Negative (Negative) Urine Bilirubin Negative (Negative) Urine Urobilinogen <2.0 (<2.0) mg/dL Ur Leukocyte Esterase Negative (Negative) Influenza Type A RNA (Not Detectd) Influenza Type B (PCR) (Not Detectd) Disposition Clinical Impression: Difficulty breathing, Chronic cough, Pneumonia Disposition: ADMITTED IP TO THIS HOSP Referrals: Neptali Ariza DO [Primary Care Provider] - 1-2 days Time of Disposition: 15:35
[2018-12-26 14:10] LABS: Basophils # (A) 0.1 k/uL (0-0.2); Basophils % (A) 1 %; Eosinophils # (A) 0.1 k/uL (0-0.7); Eosinophils % (A) 2 %; HCT 37.2 % (34.0-46.0); HGB 11.9 gm/dL (11.4-16.0); Lymphocytes # (A) 0.8 k/uL (1.0-4.8); Lymphocytes % (A) 11 %; MCH 29.2 pg (25.0-35.0); MCV 91.2 fL (80.0-100.0); Mean Platelet Volume 6.3; Monocytes # (A) 0.5 k/uL (0-1.0); Monocytes % (A) 7 %; Neutrophils # (A) 5.8 k/uL (1.3-7.7); Neutrophils % (A) 77 %; Platelet Count 415 k/uL (150-450); RBC 4.08 m/uL (3.80-5.40); RDW 15.8 % (11.5-15.5); WBC 7.4 k/uL (3.8-10.6)
[2018-12-26] MEDS: SODIUM CHLORIDE 0.9% 500 ML 500 ML IV SCH (14:11)
[2018-12-26 14:14] LABS: ALT 39 U/L (9-52); AST 23 U/L (14-36); Albumin 3.3 g/dL (3.5-5.0); Alkaline Phosphatase 85 U/L (38-126); Anion Gap 9 mmol/L; Blood Urea Nitrogen 11 mg/dL (7-17); Calcium 9.2 mg/dL (8.4-10.2); Carbon Dioxide 26 mmol/L (22-30); Chloride 102 mmol/L (98-107); Glucose 102 mg/dL (74-99); INR 0.9 (<1.2); Partial Thromboplastin Time 22.6 sec (22.0-30.0); Potassium 3.7 mmol/L (3.5-5.1); Prothrombin Time 10.2 sec (9.0-12.0); Sodium 137 mmol/L (137-145); Total Bilirubin 0.7 mg/dL (0.2-1.3); Total Protein 6.3 g/dL (6.3-8.2)
--- NOTE | 2018-12-26 14:59 | XR ---
EXAMINATION TYPE: XR chest 2V DATE OF EXAM: 12/26/2018 COMPARISON: Prior chest x-ray 12/19/2018 HISTORY: Abnormal chest x-ray, fever and shortness of breath TECHNIQUE: Frontal and lateral views of the chest are obtained. FINDINGS: Findings are similar to prior exam. IMPRESSION: Cavitary right upper lobe lesion with an air-fluid level could represent necrotic pneumo chrissy, necrotic tumor, superinfection of underlying emphysema
[2018-12-26 15:30] LABS: Appearance,Urine Clear (Clear); Bilirubin,Urine Negative (Negative); Blood,Urine Negative (Negative); Color,Urine Yellow; Glucose,Urine (UA) Negative (Negative); Ketones,Urine Negative (Negative); Leukocyte Esterase,Urine Negative (Negative); Nitrite,Urine Negative (Negative); Protein,Urine Negative (Negative); Specific Gravity,Urine 1.015 (1.001-1.035); Urobilinogen,Urine <2.0 mg/dL (<2.0)
[2018-12-26] MEDS ORDERED: PNEUMONIA PROTOCOL UTILIZED 1 EACH MISC PO PRN (15:35)
[2018-12-26] MEDS ORDERED: ACETAMINOPHEN TAB 325 MG TAB PO PRN (18:42)
[2018-12-26] MEDS ORDERED: NALOXONE 0.4 MG/ML 1 ML VIAL IV PRN (20:45)
[2018-12-26] MEDS ORDERED: CALCIUM CARBONATE 500 MG CHEWABLE PO PRN (20:45)
[2018-12-26] MEDS ORDERED: LACTULOSE 20 GM/30 ML CUP PO PRN (20:45)
[2018-12-26] MEDS ORDERED: ONDANSETRON 4 MG/2 ML VIAL IVP PRN (20:45)
[2018-12-26] MEDS ORDERED: MELATONIN 3 MG TABLET PO PRN (20:45)
[2018-12-26] MEDS ORDERED: MAGNESIUM HYDROXIDE 2,400 MG/10 ML CUP PO PRN (20:45)
[2018-12-26] MEDS ORDERED: LORazepam 0.5 MG TAB PO PRN (20:45)
[2018-12-26] MEDS: SYMBICORT 160-4.5 MCG INHALER INHALATION SCH (21:17)
[2018-12-26] MEDS: IPRATROPIUM-ALBUTEROL 3 ML NEB INHALATION SCH (21:17)
--- NOTE | 2018-12-26 22:12 | HP ---
HISTORY AND PHYSICAL DATE OF ADMISSION AND SERVICE: 12/26/2018. PRESENTING COMPLAINT: Cough, fever. HISTORY OF PRESENTING COMPLAINT: This is a pleasant 78-year-old patient who was in the hospital over 2 weeks ago. The patient follows with Dr. Ariza. Chronic stable medical conditions include hyperlipidemia, hypertension, osteoarthritis, diverticulosis, on home oxygen at 2 L. Patient was recently in the hospital from 12/10/2018 through 12/15/2018. She then had presented with congestion, cough, fever and chills, found to have a right upper lobe lesion. The patient was treated with antibiotic, steroids, bronchodilators, to which she responded well. Cultures were negative. The plan was at that time for patient to have an outpatient bronchoscopy. The patient did feel a bit better when she left the hospital but did not completely improve. She was still having some cough, shortness of breath. The patient for the last 2 days became increasingly tired, lethargic sleeping, aching all over, fever, chills, poor appetite, and she decided to present to the hospital. REVIEW OF SYSTEMS: CONSTITUTIONAL: Fever, chills. Tired. HEENT: As above. RESPIRATORY: As above. CARDIOVASCULAR: None. GASTROINTESTINAL: None. GENITOURINARY: None. MUSCULOSKELETAL: Pain in the joints. DERMATOLOGICAL: None. HEMATOLOGICAL: None. LYMPHATICS: None. PSYCHIATRY: None. NEUROLOGICAL: None. PAST MEDICAL HISTORY: 1. COPD. 2. Hyperlipidemia. 3. Hypertension. 4. Osteoarthritis. 5. Pneumonia. 6. Diverticulitis. 7. Home oxygen 2 L. 8. Left arm fracture. PAST SURGICAL HISTORY: 1. Appendectomy. 2. Bowel resection due to diverticulitis. 3. Cholecystectomy. 4. Cardiac catheterization. 5. Bilateral knee arthroscopy. 6. Sinus surgery. 7. Carpal tunnel. SOCIAL HISTORY: Lives alone. Patient smoked for about 39 years; stopped in 1997; smoked less than a pack a day. No alcohol. FAMILY HISTORY: Twin sister had lung cancer. HOME MEDICATIONS: 1. Norvasc 5 mg a day. 2. Toprol XL 12.5 p.o. daily. 3. DuoNeb q.i.d. 4. Hydrochlorothiazide 25 mg a day. 5. Vitamin D3 2000 units p.o. at bedtime. 6. Calcium 600 mg p.o. daily. 7. Symbicort 160/2.5 two puffs b.i.d. 8. Lipitor 10 mg at bedtime. 9. Ventolin HFA 2 puffs q.6 p.r.n. ALLERGIES: Include: 1. AUGMENTIN. 2. LEVAQUIN. 3. LOSARTAN. 4. MOXIFLOXACIN. 5. LORTAB. 6. STATINS. PHYSICAL EXAMINATION: Temperature 100.7, pulse 102, respiration 20, blood pressure 110/59, pulse ox 93% on 2 L. GENERAL APPEARANCE: Average build. Sitting on edge of the bed. Tired-appearing. EYES: Pupils equal. Conjunctivae normal. HEENT: External appearance of nose and ears normal. Oral cavity normal. NECK: JVD not raised. Mass not palpable. RESPIRATORY: Effort increased. LUNGS: Diminished breath sounds. CARDIOVASCULAR: First and second sounds normal. No edema. ABDOMEN: Soft, non-tender. Liver and spleen not palpable. LYMPHATIC: No lymph node palpable in neck or axillae. PSYCHIATRY: Alert and oriented x3. Mood and affect normal. NEUROLOGICAL: Pupils equal. Cranial nerves grossly intact. Power and sensation grossly intact. INVESTIGATIONS: White count 7.4, hemoglobin 11.9, potassium 3.7. BUN and creatinine are normal. UA negative. Influenza A and B negative. EKG tracing, personally reviewed by me, shows normal sinus rhythm. Chest x-ray film, personally reviewed by me, shows hyperinflated lung schulz, prominent pulmonary artery and a cavitary right upper lobe lesion. ASSESSMENT: 1. Right upper lobe pneumonia with cavitation that was present on the recent admission. The patient was treated with antibiotics and that did improve but did not settle down. Patient has been followed by Dr. Sarabia. The patient was supposed to have a PET scan this coming Monday. The patient may need a repeat CT scan and/or a bronchoscopy. 2. Acute chronic obstructive pulmonary disease exacerbation in an ex-smoker. 3. Hyperlipidemia. 4. Essential hypertension. 5. Primary osteoarthritis. 6. Chronic hypoxic respiratory failure. PLAN: Home medications are resumed. Patient has been put on bronchodilators, IV antibiotics. Pulmonary will be consulted. Care was discussed with the patient. Questions were answered. MMODL / IJN: [id number] /
[2018-12-26] MEDS: ATORVASTATIN 10 MG TAB PO SCH (22:27)
[2018-12-27] MEDS: SYMBICORT 160-4.5 MCG INHALER INHALATION SCH ×2 (07:39→19:49)
[2018-12-27] MEDS: IPRATROPIUM-ALBUTEROL 3 ML NEB INHALATION SCH ×4 (07:39→19:49)
[2018-12-27] MEDS: METOPROLOL SUCCINATE (ER) 25 MG TAB.ER.24H PO SCH (07:43)
[2018-12-27] MEDS: amLODIPine 5 MG TAB PO SCH (07:43)
--- NOTE | 2018-12-27 08:15 | XR ---
EXAMINATION TYPE: XR chest 2V DATE OF EXAM: 12/27/2018 COMPARISON: Prior chest x-ray 12/26/2018 HISTORY: Pneumonia, cough and congestion TECHNIQUE: Frontal and lateral views of the chest are obtained. FINDINGS: Findings are similar to prior exam. Cavitary lesion at the right lung apex shows an air-fl uid level, internal septations. There is volume loss present in the right upper chest. Heart size is stable. No pneumothorax. No evident effusion. IMPRESSION: Correlate for pneumonia.
--- NOTE | 2018-12-27 17:24 | P.CNPUL ---
History of Present Illness Consult date: 12/27/18 Reason for consult: dyspnea, COPD History of present illness: This is a 78-year-old female patient with known history of COPD who is coming in with worsening shortness of breath. The patient got worse over the past few days. She was diagnosed having ongoing pneumonia and for that reason the patient was hospitalized. Noted the patient was in the hospital 3 weeks ago for the same issue. At that time, the patient had an patient antibiotics should and the patient was discharged home on Ceftin to complete a ten-day course. I reviewed all of the records on this patient. I realize that the patient was involved in the right upper lobe pneumonia back in October 2018. 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 The patient had a bronchoscopy back in 2018 and the cultures came back all negative for any microbial growth. The patient was given antibiotics and the patient was discharged home. Subsequent x-rays and CAT scan of the chest showed a fluid-filled cavity/bolus in the right upper lobe and the most recent chest x-ray from this current admission shows a bullous cavity in the right upper lobe/apex area with an air-fluid level and internal septation. There is also volume loss in the right upper chest area. Note that the previous CAT scan of the chest from 12/10/2018 showed increased consolidation of the right upper lobe and bullous changes in the lung apices bilaterally with some cavitation and air-fluid level. The patient currently is not having any hemoptysis. No chest pain. White cell count is not elevated. She is hemodynamically stable. She is afebrile. Influenza screen was repeated and it was negative and the patient 7 IV Rocephin. She was started on bronchodilators also and she is receiving DuoNeb nebulized treatments around the clock. Review of Systems Constitutional: Reports fatigue, Reports weakness Eyes: denies blurred vision, denies decreased vision Ears: deny: decreased hearing Ears, nose, mouth and throat: Denies headache, Denies sore throat Cardiovascular: Reports dyspnea on exertion, Reports high blood pressure, Reports shortness of breath Respiratory: Reports cough, Reports dyspnea, Reports home oxygen, Reports wheezing Gastrointestinal: Denies abdominal pain, Denies diarrhea, Denies nausea, Denies vomiting Genitourinary: Denies dysuria, Denies hematuria Musculoskeletal: Reports fractures Musculoskeletal: left: wrist pain (Recent fracture with repair 12/07/2018) Integumentary: Denies pruritus, Denies rash Neurological: Denies numbness, Denies weakness Psychiatric: Denies anxiety, Denies depression Endocrine: Denies fatigue, Denies weight change Hematologic/Lymphatic: Reports as per HPI Allergic/Immunologic: Reports as per HPI Past Medical History Past Medical History: Asthma, COPD, Hyperlipidemia, Hypertension, Osteoarthritis (OA), Pneumonia, Respiratory Disorder Additional Past Medical History / Comment(s): COPD with bullous changes in the upper lobes bilaterally, chronic hypoxic respiratory failure, hypertension, hyperlipidemia, lt arm fx 11/29/18 History of Any Multi-Drug Resistant Organisms: None Reported Past Surgical History: Appendectomy, Bowel Resection, Cholecystectomy, Heart Catheterization, Orthopedic Surgery, Tubal Ligation Additional Past Surgical History / Comment(s): 11/11/15 bronchoscopy and lavage, bowel resection due to diverticulitis 2012, bilat knee arthroscopy, sinus surgery, carpal tunnel left wrist, colonoscopy. Left wrist frature with pins placed 12-07-2018 Past Anesthesia/Blood Transfusion Reactions: No Reported Reaction Additional Past Anesthesia/Blood Transfusion Reaction / Comment(s): has never received blood Past Psychological History: No Psychological Hx Reported Additional Psychological History / Comment(s): Pt lives alone. She is independent. She uses no assistive device. She drives.has home 02 2 liters n/c and nebulizer. Smoking Status: Former smoker Past Alcohol Use History: None Reported Additional Past Alcohol Use History / Comment(s): QUIT SMOKING 1997, STARTED AGE 18(1957) smoked <1ppd when she smoked Past Drug Use History: None Reported - Past Family History Mother Family Medical History: Myocardial Infarction (GA) Additional Family Medical History / Comment(s): Mother of GA at age 65 yrs. Sister(s) Family Medical History: Cancer Additional Family Medical History / Comment(s): Twin sister had LUNG cancer. Father Family Medical History: Cancer Additional Family Medical History / Comment(s): Father had cancer in his neck. Medications and Allergies Home Medications Medication Instructions Recorded Confirmed Type Hydrochlorothiazide [Hydrodiuril] 25 mg PO DAILY 01/01/17 12/26/18 History Cholecalciferol (Vitamin D3) 2,000 unit PO HS 09/25/17 12/26/18 History [Vitamin D3] Metoprolol Succinate [Toprol XL] 12.5 mg PO DAILY 09/25/17 12/26/18 History amLODIPine [Norvasc] 5 mg PO DAILY 09/25/17 12/26/18 History Albuterol Inhaler [Ventolin Hfa 2 puff INHALATION RT-Q6H PRN 02/09/18 12/26/18 History Inhaler] Budesonide-Formot 160-4.5 Mcg 2 puff INHALATION RT-BID 02/09/18 12/26/18 History [Symbicort 160-4.5 Mcg Inhaler] Atorvastatin [Lipitor] 10 mg PO HS 09/29/18 12/26/18 History Ipratropium-Albuterol Nebulize 3 ml INHALATION RT-QID 12/10/18 12/26/18 History [Duoneb 0.5 mg-3 mg/3 ml Soln] Budesonide/Formoterol Fumarate 2 puff INHALATION RT-DAILY 12/26/18 12/26/18 History [Symbicort 160-4.5 Mcg Inhaler] Calcium Carbonate [Calcium] 600 mg PO DAILY 12/26/18 12/26/18 History Allergies Allergy/AdvReac Type Severity Reaction Status Date / Time amoxicillin [From Augmentin] Allergy Unknown Verified 12/26/18 13:18 clavulanic acid Allergy Unknown Verified 12/26/18 13:18 [From Augmentin] levofloxacin [From Levaquin] Allergy Unknown Verified 12/26/18 13:18 losartan Allergy Unknown Verified 12/26/18 13:18 moxifloxacin HCl Allergy Rash/Hives, Verified 12/26/18 13:18 [From Avelox] SWELLING nitrofurantoin Allergy Rash/Hives Verified 12/26/18 13:18 hydrocodone bitartrate AdvReac Nausea & Verified 12/26/18 13:18 [From Lortab] Vomiting simvastatin AdvReac muscle pain Verified 12/26/18 13:18 Iqibeiv-Xlj-Xhh Reductase AdvReac MUSCLE PAIN Verified 12/26/18 13:18 Inhibitor Physical Exam Vitals: Vital Signs Temp Pulse Pulse Resp BP Pulse Ox 12/27/18 15:42 98 12/27/18 15:30 20 12/27/18 15:27 102 H 93 L 12/27/18 14:50 98.1 F 125 H 20 136/55 92 L 12/27/18 11:28 98 12/27/18 11:17 101 H 12/27/18 08:00 16 12/27/18 07:52 95 12/27/18 07:39 94 92 L 12/27/18 06:33 97.8 F 99 16 138/66 94 L 12/27/18 05:35 98.1 F 98 18 136/76 98 12/26/18 21:30 103 H 18 12/26/18 21:17 100 16 12/26/18 20:30 97.3 F L 85 16 101/51 93 L Intake and Output 12/27/18 12/27/18 12/27/18 06:59 14:59 22:59 Intake Total 840 Balance 840 Intake: Oral 840 Other: Voiding Method Toilet Toilet # Voids 1 2 GENERAL EXAM: Alert, active, comfortable in no apparent distress. On 2 L nasal cannula HEAD: Normocephalic. EYES: Normal reaction of pupils, equal size. NOSE: Clear with pink turbinates. THROAT: No erythema or exudates. NECK: No masses, no JVD. CHEST: No chest wall deformity. LUNGS: Equal air entry with faint expiratory wheeze, diminished. CVS: S1 and S2 normal with no audible murmur, regular rhythm. ABDOMEN: No hepatosplenomegaly, normal bowel sounds, no guarding or rigidity. SPINE: No scoliosis or deformity SKIN: No rashes CENTRAL NERVOUS SYSTEM: No focal deficits, tone is normal in all 4 extremities. EXTREMITIES: Cast to the left wrist. There is no peripheral edema. No clubbing, no cyanosis. Peripheral pulses are intact. Results - Laboratory Findings CBC and BMP: 12/26/18 13:50 12/26/18 13:50 PT/INR, D-dimer PT 10.2 sec (9.0-12.0) 12/26/18 13:50 INR 0.9 (<1.2) 12/26/18 13:50 Abnormal lab findings: Abnormal Labs 12/26/18 12/26/18 13:50 13:50 RDW 15.8 H Lymphocytes # 0.8 L Glucose 102 H Albumin 3.3 L - Diagnostic Findings Chest x-ray: image reviewed Assessment and Plan Plan: #1 acute on chronic shortness of breath with evidence of a cavitating pneumonia involving the right upper lobe and a possibility of a lung abscess cannot be completely excluded. Noted the patient bullous changes in the upper lobes bilaterally and she developed an extensive right upper lobe pneumonia and subsequently she developed a fluid-filled cavity/bolus/abscess in the right upper lobe. Please bronchoscopy that was done in general 2019 showed no microbial growth. Meanwhile, the patient was in admitted to the hospital intermittently for exacerbation of her COPD and ongoing difficulties with breathing. #2 COPD with advanced bullous changes in the upper lobes and the patient is chronic hypoxic respiratory failure secondary to COPD #3 Recent fall with fracture of the left wrist requiring surgical intervention on 12/07/2018. #4 Hypertension. #6 Remote history of chronic tobacco dependence. #7 Hyperlipidemia. #8 Osteoarthritis. #9 History of twin sister with lung cancer. Plan In my opinion, this patient needs to be treated as a lung abscess. She would benefit from long-term antibiotics which will be extended for at least 4-6 weeks pending her clinical response. Meanwhile, prior to commitment of long-term antibiotic course repeat bronchoscopy may be of value to narrow down the differential diagnosis and see if there is any ongoing gram-negative or anaerobic infection the right upper lobe. For that reason, I'm keeping the patient nothing by mouth for tonight and for tomorrow the patient will be undergoing a bronchoscopy and the bronchioloalveolar lavage of the right upper lobe. The patient will be taken off IV Rocephin for now pending further cultures. Continue bronchodilators. Reviewed the chest x-ray findings. We'll continue to follow.
[2018-12-27] MEDS: ATORVASTATIN 10 MG TAB PO SCH (20:23)
--- NOTE | 2018-12-27 23:13 | PN ---
PROGRESS NOTE DATE OF SERVICE: 12/27/2018 PRESENTING COMPLAINT: Cough, fever. INTERVAL HISTORY: This patient with a cavitary lung lesion recently in the hospital presented with cough, fever, for antibiotics. Still having some symptoms; tired, rundown. Seen by Pulmonary. Plan is to get a bronchoscopy tomorrow. Did tolerate some diet. REVIEW OF SYSTEMS: Done for constitutional, cardiovascular, GI, pulmonary; relevant findings as above. CURRENT MEDICATIONS: Reviewed. They include DuoNeb. PHYSICAL EXAMINATION: Temperature 98.1, pulse 102, respiration 20, blood pressure 136/55, pulse ox 92% on room air. GENERAL APPEARANCE: Sitting up, tired-appearing. EYES: Pupils equal. Conjunctivae normal. NECK: JVD not raised. Mass not palpable. RESPIRATORY: Effort normal. LUNGS: Diminished breath sounds. CARDIOVASCULAR: First and second sounds normal. No edema. ABDOMEN: Soft, non-tender. Liver and spleen not palpable. PSYCHIATRY: Alert and oriented x3. Mood and affect normal. INVESTIGATIONS: No blood work from today. ASSESSMENT: 1. Right lobe pneumonia with a cavitary lesion, present on recent admission, now for a bronchoscopy tomorrow. 2. Acute chronic obstructive pulmonary disease exacerbation in an ex-smoker. 3. Hyperlipidemia. 4. Essential hypertension. 5. Primary osteoarthritis. 6. Chronic hypoxic respiratory failure. PLAN: Continue current medication and treatment plan. The patient was seen by Dr. Barragan from Pulmonary. The patient did have a recent bronchoscopy that was unremarkable. Feeling this could be a lung abscess. He is held off the Rocephin pending further cultures from the bronchoscopy. Will proceed from there. MMODL / IJN: [id number] /
[2018-12-28] MEDS: METOPROLOL SUCCINATE (ER) 25 MG TAB.ER.24H PO SCH (07:23)
[2018-12-28] MEDS: amLODIPine 5 MG TAB PO SCH (07:24)
[2018-12-28] MEDS: SYMBICORT 160-4.5 MCG INHALER INHALATION SCH ×2 (09:51→21:24)
[2018-12-28] MEDS: IPRATROPIUM-ALBUTEROL 3 ML NEB INHALATION SCH ×4 (09:51→21:24)
[2018-12-28] MEDS ORDERED: KETAMINE 10 MG/ML 20 ML VIAL ONE (13:09)
[2018-12-28] MEDS ORDERED: fentaNYL (PF) 50 MCG/ML 2 ML AMP ONE (13:09)
[2018-12-28] MEDS ORDERED: MIDAZOLAM 2 MG/2 ML VIAL ONE (13:09)
[2018-12-28] MEDS ORDERED: LIDOCAINE 1% INJ 10MG/ML (20 ML MDV) ONE (13:09)
[2018-12-28] MEDS ORDERED: PROPOFOL 10 MG/ML 20 ML VIAL IV ONE (13:09)
[2018-12-28] MEDS ORDERED: LACTATED RINGERS 1,000 ML IV ONE (13:16)
--- NOTE | 2018-12-28 13:37 | P.PN ---
Subjective Progress Note Date: 12/28/18 On today's evaluation of 12/28/2018 I'm seeing this patient for a follow-up. The plan is to proceed with bronchoscopy today. The patient has a congested cough. She is producing mucus. She has no fever or chills. No chest pain or pleurisy. She is on Symbicort as maintenance and DuoNeb nebulized treatments around the clock. No chest pain. No hemoptysis no fever. No chills. She received 1 dose of Rocephin and antibiotic was discontinued in preparation for bronchoscopy at discussed yesterday my dictation. No new labs otherwise from today. Objective - Vital Signs Vital signs: Vital Signs Temp 97.7 F 12/28/18 06:10 Pulse 92 12/28/18 10:05 Resp 18 12/28/18 08:00 BP 162/79 12/28/18 06:10 Pulse Ox 92 L 12/28/18 06:10 Intake & Output 12/27/18 12/28/18 12/28/18 18:59 06:59 18:59 Intake Total 1440 Balance 1440 Intake: Oral 1440 Other: Voiding Method Toilet Toilet # Voids 2 2 - Exam GENERAL EXAM: Alert, active, comfortable in no apparent distress. On 2 L nasal cannula HEAD: Normocephalic. EYES: Normal reaction of pupils, equal size. NOSE: Clear with pink turbinates. THROAT: No erythema or exudates. NECK: No masses, no JVD. CHEST: No chest wall deformity. LUNGS: Equal air entry with faint expiratory wheeze, diminished. CVS: S1 and S2 normal with no audible murmur, regular rhythm. ABDOMEN: No hepatosplenomegaly, normal bowel sounds, no guarding or rigidity. SPINE: No scoliosis or deformity SKIN: No rashes CENTRAL NERVOUS SYSTEM: No focal deficits, tone is normal in all 4 extremities. EXTREMITIES: Cast to the left wrist. There is no peripheral edema. No clubbing, no cyanosis. Peripheral pulses are intact. - Labs CBC & Chem 7: 12/26/18 13:50 12/26/18 13:50 Labs: Microbiology - Last 24 Hours (Table) 12/27/18 07:54 Gram Stain - Preliminary Sputum 12/26/18 15:17 Urine Culture - Final Urine,Voided 12/26/18 13:50 Blood Culture - Preliminary Blood No Growth after 24 hours Assessment and Plan Plan: #1 acute on chronic shortness of breath with evidence of a cavitating pneumonia involving the right upper lobe and a possibility of a lung abscess cannot be completely excluded. Noted the patient bullous changes in the upper lobes bilaterally and she developed an extensive right upper lobe pneumonia and subsequently she developed a fluid-filled cavity/bolus/abscess in the right upper lobe. Please bronchoscopy that was done in general 2019 showed no microbial growth. Meanwhile, the patient was in admitted to the hospital intermittently for exacerbation of her COPD and ongoing difficulties with breathing. #2 COPD with advanced bullous changes in the upper lobes and the patient is chronic hypoxic respiratory failure secondary to COPD #3 Recent fall with fracture of the left wrist requiring surgical intervention on 12/07/2018. #4 Hypertension. #6 Remote history of chronic tobacco dependence. #7 Hyperlipidemia. #8 Osteoarthritis. #9 History of twin sister with lung cancer. Plan I'm going to proceed with a bronchoscopy. Obtain a bronchioloalveolar lavage of the right upper lobe. We will decide whether the patient can go home after the procedure. She may potentially go home today and await for further directions regarding antibiotic treatment. I think is reasonable to discharge this patient home on Augmentin till final cultures and sensitivities are available. She will need at least 4-6 weeks of antibiotics and our treated as a case of lung abscess. She was agreeable. For now, we're going to proceed with a bronchoscopy.
--- NOTE | 2018-12-28 13:48 | P.PCN ---
Date of Procedure: 12/28/18 Preoperative Diagnosis: Right upper lobe abscess Postoperative Diagnosis: Right upper lobe abscess Procedure(s) Performed: Flexible bronchoscopy, bronchoalveolar lavage of the right upper lobe Anesthesia: MAC Surgeon: Rip Barragan Pathology: other Condition: stable Disposition: floor Operative Findings: THIS PROCEDURE WAS DONE UNDER CONSCIOUS SEDATION. THE PATIENT WAS GIVEN A COMBINATION OF VERSED AND FENTANYL AND KETAMINE. After achieving adequate sedation, the flexible bronchoscope was inserted into the right nostril. The flexible bronchoscope was easily advanced through the posterior oropharynx, and then the larynx and upper airway structures were all inspected. The epiglottis was in the midline. The vocal cords were identified. The vallecula and arytenoids were all within normal limits. A total of 2 mL of 1% lidocaine was applied to the vocal cords and following that the patient was intubated by the bronchoscope and the bronchoscope was advanced through the upper trachea then mid trachea and then to the lower trachea. There was a component of moderate degree of tracheobronchomalacia seen throughout the patient's airways. The patient was found to have looseness for secretions scattered throughout the airways. Immediately bronchoscope was moved to the right upper lobe and the anterior and apical segments were inspected. The apical segment was narrowed and inflamed however it was patent. Were able to cannulate the apical segment using the flexible bronchoscope. Within. Total of 50 mL of fluid in the form of saline and we aspirated approximately 25 mL of fluid back. Therapeutic airway suctioning was also done and the anterior segment of the right upper lobe. The posterior segment was patent. The bronchoscope was then moved to the bronchus intermedius and a quick look of the right middle lobe and the right lower lobe segments were done and all of these a irways were patent and within normal limits. The bronchoscope was removed today left side and inspection of the left-sided fluid left mainstem bronchus, left upper lobe bronchus and the left lower lobe bronchus along with various segments and subsegments. Therapeutic and was suctioning was done. Bronchoscope was removed. The patient tolerated the procedure without any complications. The lavage from the apical segment of the right upper lobe will be sent for cultures and sensitivities. No complications. No bleeding. No oxygen saturation. The patient tolerated the procedure very well.
[2018-12-28 15:03] VITALS: BP 149/65; RESP 20; TEMP 98.4
[2018-12-28 17:26] VITALS: PULSE 88
[2018-12-28] MEDS ORDERED: AMOXIC-POT CLAV 875-125MG 1 EACH TAB PO STA (19:09)
[2018-12-28 21:03] LABS: Appearance,BF Hazy; Color,BF Orange; Nucleated Cells, Body Fluid 2150 /uL; RBC, Body Fluid 2655 /uL
[2018-12-28 21:06] LABS: Mononuclear WBC,Body Fluid 8 %; Polynuclear WBC,Body Fluid 92 %
[2018-12-28] MEDS: ATORVASTATIN 10 MG TAB PO SCH (21:39)
--- NOTE | 2018-12-29 05:23 | DS ---
DISCHARGE SUMMARY DATE OF ADMISSION: December 26, 2018 DATE OF DISCHARGE: December 28, 2018. FINAL DIAGNOSES: 1. Possible right upper lobe abscess. 2. Acute chronic obstructive pulmonary disease exacerbation in an ex-smoker. 3. Hyperlipidemia. 4. Essential hypertension. 5. Primary osteoarthritis. 6. Chronic hypoxic respiratory failure from underlying chronic obstructive pulmonary disease. PROCEDURE: Bronchoscopy. CONSULTATION: Dr. Barragan from Pulmonary. HOSPITAL COURSE: This patient was just discharged from the hospital following right upper lobe cavity pneumonia, presented again with respiratory symptoms, cough, sputum production. The patient did undergo bronchoscopy by Dr. Barragan today. He felt the patient probably has an abscess. He said the patient could go home on Augmentin. The patient has certain allergies. I wanted the patient to stay back for a few couple of hours at least after the antibiotic, but the patient was getting late and really wanted to go home. I did tell the nurse to convey to the patient to come back if she has any significant allergic reactions. PHYSICAL EXAMINATION: Temperature 98.4, pulse 94, respiratory rate 20, blood pressure 149/65, pulse ox 95 percent on 2 L. Lungs decreased breath sounds. Cardiovascular: 1st and 2nd sounds normal. INVESTIGATIONS: White count 7.4, hemoglobin 11.9, potassium 3.7. Cultures are all pending. DISCHARGE MEDICATIONS: 1. Vitamin D3 2000 units p.o. q.h.s. 2. Toprol-XL 12.5 p.o. daily. 3. Norvasc 5 mg p.o. daily. 4. Ventolin HFA 2 puffs q.6h p.r.n. 5. Symbicort 160/4.5, 2 puffs b.i.d. 6. Lipitor 10 mg q.h.s. 7. DuoNeb q.i.d. 8. Calcium 600 mg p.o. daily. 9. Augmentin 875 1 tablet p.o. q.12h 60 tablets. FOLLOWUP: Follow up with Dr. Ariza in 2 days. Follow up with Dr. Barragan in 10 days. Home oxygen to continue. Copy to Dr. Ariza. MMODL / IJN: [id number] /
== END 2018-12-28 21:37 | disposition home or self-care (01) | DRG 178 ==
LOC: EC 12:47 → 4MS4W 15:37
PROVIDERS: ADMIT Hospitalist; ATTEND Hospitalist
PROC: 0BC48ZZ Extirpation of Matter from Right Upper Lobe Bronchus, Via Natural or Artificial Opening Endoscopic (ICD-10-PCS; 2018-12-28)
PROC: 0B9C8ZX Drainage of Right Upper Lung Lobe, Via Natural or Artificial Opening Endoscopic, Diagnostic (ICD-10-PCS; principal; 2018-12-28 12:00)
DX: J85.1 Abscess of lung with pneumonia (principal); J96.11 Chronic respiratory failure with hypoxia; J39.8 Other specified diseases of upper respiratory tract; J43.9 Emphysema, unspecified; E78.5 Hyperlipidemia, unspecified; J45.909 Unspecified asthma, uncomplicated; I10 Essential (primary) hypertension; M19.91 Primary osteoarthritis, unspecified site; S62.102D Fracture of unspecified carpal bone, left wrist, subsequent encounter for fracture with routine healing; Z99.81 Dependence on supplemental oxygen; Z79.51 Long term (current) use of inhaled steroids; Z79.899 Other long term (current) drug therapy; Z88.1 Allergy status to other antibiotic agents; Z88.5 Allergy status to narcotic agent; Z88.0 Allergy status to penicillin; Z88.8 Allergy status to other drugs, medicaments and biological substances; Z87.01 Personal history of pneumonia (recurrent); Z90.49 Acquired absence of other specified parts of digestive tract; Z87.891 Personal history of nicotine dependence; Z87.19 Personal history of other diseases of the digestive system; Z98.51 Tubal ligation status; Z82.49 Family history of ischemic heart disease and other diseases of the circulatory system; Z80.1 Family history of malignant neoplasm of trachea, bronchus and lung; Z80.8 Family history of malignant neoplasm of other organs or systems
CPT/HCPCS: 31624; 36415; 71046; 80053; 81003; 83605; 84484; 85025; 85610; 85730; 87040; 87070; 87086; 87102; 87205; 87252; 87496; 87498; 87502; 87529; 87634; 87798; 88305; 89050; 93005; 94640; 96365; 96375; 99285

== ENCOUNTER 2019-01-10 09:17 | Emergency (ER) | payer MEDICARE ==
[2019-01-10 09:20] VITALS: TEMP 98
[2019-01-10] MEDS ORDERED: MORPHINE SULFATE 4 MG/ML SYRINGE IM STA (10:16)
[2019-01-10] MEDS ORDERED: KETOROLAC 60 MG/2 ML VIAL IM STA (10:16)
[2019-01-10] MEDS ORDERED: methylPREDNISolone SOD SUCCI 125 MG/2 ML VIAL IM ONE (10:16)
--- NOTE | 2019-01-10 10:36 | ED ---
Back Pain HPI - General Chief Complaint: Back Pain/Injury Stated Complaint: back pain Time Seen by Provider: 01/10/19 09:21 Source: patient, RN notes reviewed, old records reviewed Limitations: no limitations - History of Present Illness Initial Comments: Patient is a 78 year old female, results emergency department today with complaints of lower back pain pain down her legs. She reports it seems to have occurred since a fall in November. At that time she broke her left wrist. She went to see Dr. Marie yesterday thought it was initially related to her hip. Patient's hip x-ray was normal. They determined it was more of her back. She is supposed to see Dr. Upton on in [address] [place] [address] now. She complains of pain worse with ambulation. Denies any saddle anesthesias. - Related Data Home Medications Medication Instructions Recorded Confirmed Cholecalciferol (Vitamin D3) 2,000 unit PO HS 09/25/17 01/10/19 [Vitamin D3] Metoprolol Succinate [Toprol XL] 12.5 mg PO DAILY 09/25/17 01/10/19 amLODIPine [Norvasc] 5 mg PO DAILY 09/25/17 01/10/19 Albuterol Inhaler [Ventolin Hfa 2 puff INHALATION RT-Q6H PRN 02/09/18 01/10/19 Inhaler] Budesonide-Formot 160-4.5 Mcg 2 puff INHALATION RT-BID 02/09/18 01/10/19 [Symbicort 160-4.5 Mcg Inhaler] Atorvastatin [Lipitor] 10 mg PO HS 09/29/18 01/10/19 Ipratropium-Albuterol Nebulize 3 ml INHALATION RT-QID 12/10/18 01/10/19 [Duoneb 0.5 mg-3 mg/3 ml Soln] Calcium Carbonate [Calcium] 600 mg PO DAILY 12/26/18 01/10/19 Clindamycin HCl 300 mg PO QID 01/10/19 01/10/19 Loratadine [Claritin] 10 mg PO DAILY 01/10/19 01/10/19 Previous Rx's Medication Instructions Recorded Acetaminophen with Codeine 1 tab PO Q6H PRN 3 Days #12 tab 01/10/19 [Tylenol w/codeine #3] Cyclobenzaprine [Flexeril] 10 mg PO TID #15 tab 01/10/19 Dexamethasone 0.75 mg PO DAILY #12 tab 01/10/19 Naproxen 500 mg PO BID #20 tablet 01/10/19 Allergies Allergy/AdvReac Type Severity Reaction Status Date / Time amoxicillin [From Augmentin] Allergy Unknown Verified 01/10/19 10:01 clavulanic acid Allergy Unknown Verified 01/10/19 10:01 [From Augmentin] levofloxacin [From Levaquin] Allergy Unknown Verified 01/10/19 10:01 losartan Allergy Unknown Verified 01/10/19 10:01 moxifloxacin HCl Allergy Rash/Hives, Verified 01/10/19 10:01 [From Avelox] SWELLING nitrofurantoin Allergy Rash/Hives Verified 01/10/19 10:01 hydrocodone bitartrate AdvReac Nausea & Verified 01/10/19 10:01 [From Lortab] Vomiting simvastatin AdvReac muscle pain Verified 01/10/19 10:01 Bsjbgao-Clr-Vuk Reductase AdvReac MUSCLE PAIN Verified 01/10/19 10:01 Inhibitor Review of Systems ROS Statement: Those systems with pertinent positive or pertinent negative responses have been documented in the HPI. ROS Other: All systems not noted in ROS Statement are negative. Past Medical History Past Medical History: Asthma, COPD, Hyperlipidemia, Hypertension, Osteoarthritis (OA), Pneumonia, Respiratory Disorder Additional Past Medical History / Comment(s): COPD with bullous changes in the upper lobes bilaterally, chronic hypoxic respiratory failure, hypertension, hyperlipidemia, lt arm fx 11/29/18 History of Any Multi-Drug Resistant Organisms: None Reported Past Surgical History: Appendectomy, Bowel Resection, Cholecystectomy, Heart Catheterization, Orthopedic Surgery, Tubal Ligation Additional Past Surgical History / Comment(s): 11/11/15 bronchoscopy and lavage, bowel resection due to diverticulitis 2012, bilat knee arthroscopy, sinus surgery, carpal tunnel left wrist, colonoscopy. Left wrist frature with pins placed 12-07-2018 Past Anesthesia/Blood Transfusion Reactions: No Reported Reaction Additional Past Anesthesia/Blood Transfusion Reaction / Comment(s): has never received blood Past Psychological History: No Psychological Hx Reported Smoking Status: Former smoker Past Alcohol Use History: None Reported Past Drug Use History: None Reported - Past Family History Mother Family Medical History: Myocardial Infarction ([place]) Additional Family Medical History / Comment(s): Mother of [place] at age 65 yrs. Sister(s) Family Medical History: Cancer Additional Family Medical History / Comment(s): Twin sister had LUNG cancer. Father Family Medical History: Cancer Additional Family Medical History / Comment(s): Father had cancer in his neck. General Exam - General Exam Comments Initial Comments: 78-year-old female. Alert and oriented. No distress. Limitations: no limitations General appearance: alert, in no apparent distress Head exam: Present: atraumatic, normocephalic, normal inspection Eye exam: Present: normal appearance, PERRL, EOMI. Absent: scleral icterus, conjunctival injection, periorbital swelling ENT exam: Present: normal exam, mucous membranes moist Neck exam: Present: normal inspection. Absent: tenderness, meningismus, lymphadenopathy Respiratory exam: Present: normal lung sounds bilaterally. Absent: respiratory distress, wheezes, rales, rhonchi, stridor Cardiovascular Exam: Present: regular rate, normal rhythm, normal heart sounds. Absent: systolic murmur, diastolic murmur, rubs, gallop, clicks GI/Abdominal exam: Present: soft, normal bowel sounds. Absent: distended, tenderness, guarding, rebound, rigid Extremities exam: Present: normal inspection, full ROM, normal capillary refill. Absent: tenderness, pedal edema, joint swelling, calf tenderness Back exam: Present: normal inspection, tenderness (lumbar spinal tenderness) Neurological exam: Present: alert, oriented X3, CN II-XII intact Psychiatric exam: Present: normal affect, normal mood Skin exam: Present: warm, dry, intact, normal color. Absent: rash Course Vital Signs 01/10/19 01/10/19 09:18 11:54 Temperature 98.0 F Pulse Rate 86 91 Respiratory 18 16 Rate Blood Pressure 124/66 157/70 O2 Sat by Pulse 95 Oximetry Medical Decision Making - Medical Decision Making 78-year-old female presents returns his lower back. Down bilateral legs. Patient denies saddle anesthesia. Denies recent trauma, she will see Dr. Upton next monday. Patient reports relief after pain medication injection. Xray lumbar spine shows DDD, no fracture. Patient has no other complaints. Patient has been given short course of pain medication. Opiate form completed. Discussed PCP follow up. - Radiology Data Radiology results: report reviewed Straightening of the lumbar spine with multilevel degenerative changes noted above with no significant change from recent CT. CT shows disc herniation L3-L4 level face anterior thecal sac image sagittal 64. Disposition Clinical Impression: Lumbar back pain Disposition: HOME SELF-CARE Condition: Good Instructions (If sedation given, give patient instructions): Acute Low Back Pain (ED) Additional Instructions: Patient advised to take medications as prescribed. Follow-up with primary care doctor and Dr. Upton. Patient should return to the emergency department if any alarming signs or symptoms occur. Prescriptions: Dexamethasone 0.75 mg PO DAILY #12 tab Cyclobenzaprine [Flexeril] 10 mg PO TID #15 tab Naproxen 500 mg PO BID #20 tablet Acetaminophen with Codeine [Tylenol w/codeine #3] 1 tab PO Q6H PRN 3 Days #12 tab PRN Reason: Pain Is patient prescribed a controlled substance at d/c from ED?: Yes If prescribed controlled substance>3 days was MAPS reviewed?: Prescribed <3 Days If opioid is for acute pain is fill amount 7 days or less?: Yes If Rx opioid, was Start Talking consent form obtained?: Yes Referrals: Neptali Ariza DO [Primary Care Provider] - 1-2 days Time of Disposition: 11:41
--- NOTE | 2019-01-10 11:32 | XR ---
EXAMINATION TYPE: XR lumbar spine 2 or 3V DATE OF EXAM: 01/10/2019 CLINICAL HISTORY: Pain from fall injury 2 weeks ago. TECHNIQUE: Frontal and lateral images of the lumbar spine are obtained. COMPARISON: CT abdomen and pelvis November 08, 2018 FINDINGS: There are 5 lumbar type vertebral bodies identified. The lumbar spine shows straightened alignment without evidence of acute fracture or dislocation. There is levoconvex scoliotic curvature centered L4-L5 level redemonstrated Vertebral body heights are within normal limits. There is mild di sc space narrowing and spurring L1-L2 level. There is mild anterior spurring L2-L3 level. There is mo derate to advanced disc space narrowing with mild to moderate anterior spurring L3-L4 level. There is moderate disc space narrowing with vacuum disc phenomenon and right lateral spurring L4-L5 level wit h endplate sclerosis. There is moderate disc space narrowing with vacuum disc phenomenon L5-S1 level. Atherosclerotic ectasia of the abdominal aorta is seen, there is suspected borderline aneurysmal esequiel nge redemonstrated. Cholecystectomy clips are noted. Facet arthropathy mid to lower lumbar levels is noted seen better on CT. IMPRESSION: Straightening of lumbar spine with multilevel degenerative changes as detailed above no s ignificant change from recent CT. CT also shows disc herniation L3-L4 level effacing anterior thecal sac sagittal image 64.
[2019-01-10 11:55] VITALS: BP 157/70; PULSE 91; RESP 16
== END 2019-01-10 11:54 | disposition home or self-care (01) ==
LOC: EC 09:17
DX: M54.5 Low back pain (principal); M51.36 Other intervertebral disc degeneration, lumbar region; J44.9 Chronic obstructive pulmonary disease, unspecified; E78.5 Hyperlipidemia, unspecified; I10 Essential (primary) hypertension; Z79.51 Long term (current) use of inhaled steroids; Z79.899 Other long term (current) drug therapy; Z88.0 Allergy status to penicillin; Z88.1 Allergy status to other antibiotic agents; Z88.8 Allergy status to other drugs, medicaments and biological substances; Z88.5 Allergy status to narcotic agent; Z95.5 Presence of coronary angioplasty implant and graft; Z87.891 Personal history of nicotine dependence
CPT/HCPCS: 72100; 99284; 96372 ×3; J2270; J2930; J1885

== ENCOUNTER 2019-02-09 09:57 | Emergency (ER) | payer MEDICARE ==
[2019-02-09] MEDS ORDERED: OXYMETAZOLINE 0.05% NASL SPRAY 1 SPRAY BOTTLE NASAL STA (10:24)
--- NOTE | 2019-02-09 10:34 | ED ---
General Adult HPI - General Chief complaint: ENT Stated complaint: Nosebleed Time Seen by Provider: 02/09/19 10:04 Source: patient, RN notes reviewed Mode of arrival: ambulatory Limitations: no limitations - History of Present Illness Initial comments: 78-year-old with a past medical history of asthma, COPD, hyperlipidemia, hypertension presents to the emergency department for a chief complaint of nosebleed. Patient states this started approximately 45 minutes prior to arrival. States that it stopped when she arrived in the emergency department. Patient states she has had nosebleeds before. Patient has never had have nasal packing. Patient has seen an ENT for this present there is nothing to do at the time. This was about one month ago. No blood thinners. Patient has no other complaints at this time including shortness of breath, chest pain, abdominal pain, nausea or vomiting, headache, or visual changes. - Related Data Home Medications Medication Instructions Recorded Confirmed Cholecalciferol (Vitamin D3) 2,000 unit PO HS 09/25/17 02/09/19 [Vitamin D3] Metoprolol Succinate [Toprol XL] 12.5 mg PO DAILY 09/25/17 02/09/19 amLODIPine [Norvasc] 5 mg PO DAILY 09/25/17 02/09/19 Albuterol Inhaler [Ventolin Hfa 2 puff INHALATION RT-Q6H PRN 02/09/18 02/09/19 Inhaler] Budesonide-Formot 160-4.5 Mcg 2 puff INHALATION RT-BID 02/09/18 02/09/19 [Symbicort 160-4.5 Mcg Inhaler] Atorvastatin [Lipitor] 10 mg PO HS 09/29/18 02/09/19 Loratadine [Claritin] 10 mg PO DAILY 01/10/19 02/09/19 Albuterol Nebulized [Ventolin 2.5 mg INHALATION RT-Q6H PRN 02/09/19 02/09/19 Nebulized] Hydrochlorothiazide [Hydrodiuril] 25 mg PO DAILY 02/09/19 02/09/19 Previous Rx's Medication Instructions Recorded Amoxicillin/Potassium Clav 1 tab PO Q12HR #10 tab 02/09/19 [Augmentin 875-125 Tablet] Allergies Allergy/AdvReac Type Severity Reaction Status Date / Time amoxicillin [From Augmentin] Allergy Unknown Verified 02/09/19 10:28 clavulanic acid Allergy Unknown Verified 02/09/19 10:28 [From Augmentin] levofloxacin [From Levaquin] Allergy Unknown Verified 02/09/19 10:28 losartan Allergy Unknown Verified 02/09/19 10:28 moxifloxacin HCl Allergy Rash/Hives, Verified 02/09/19 10:28 [From Avelox] SWELLING nitrofurantoin Allergy Rash/Hives Verified 02/09/19 10:28 hydrocodone bitartrate AdvReac Nausea & Verified 02/09/19 10:28 [From Lortab] Vomiting simvastatin AdvReac muscle pain Verified 02/09/19 10:28 Ciaggkn-Jbm-Eqn Reductase AdvReac MUSCLE PAIN Verified 02/09/19 10:28 Inhibitor Review of Systems ROS Statement: Those systems with pertinent positive or pertinent negative responses have been documented in the HPI. ROS Other: All systems not noted in ROS Statement are negative. Past Medical History Past Medical History: Asthma, COPD, Hyperlipidemia, Hypertension, Osteoarthritis (OA), Pneumonia, Respiratory Disorder Additional Past Medical History / Comment(s): COPD with bullous changes in the upper lobes bilaterally, chronic hypoxic respiratory failure, hypertension, hyperlipidemia, lt arm fx 11/29/18 History of Any Multi-Drug Resistant Organisms: None Reported Past Surgical History: Appendectomy, Bowel Resection, Cholecystectomy, Heart Catheterization, Orthopedic Surgery, Tubal Ligation Additional Past Surgical History / Comment(s): 11/11/15 bronchoscopy and lavage, bowel resection due to diverticulitis 2012, bilat knee arthroscopy, sinus surgery, carpal tunnel left wrist, colonoscopy. Left wrist frature with pins placed 12-07-2018 Past Anesthesia/Blood Transfusion Reactions: No Reported Reaction Additional Past Anesthesia/Blood Transfusion Reaction / Comment(s): has never received blood Past Psychological History: No Psychological Hx Reported Smoking Status: Former smoker Past Alcohol Use History: None Reported Past Drug Use History: None Reported - Past Family History Mother Family Medical History: Myocardial Infarction ([place]) Additional Family Medical History / Comment(s): Mother of [place] at age 65 yrs. Sister(s) Family Medical History: Cancer Additional Family Medical History / Comment(s): Twin sister had LUNG cancer. Father Family Medical History: Cancer Additional Family Medical History / Comment(s): Father had cancer in his neck. General Exam Limitations: no limitations General appearance: alert, in no apparent distress Head exam: Present: atraumatic, normocephalic, normal inspection Eye exam: Present: normal appearance, PERRL, EOMI. Absent: scleral icterus, conjunctival injection, periorbital swelling ENT exam: Present: normal exam, normal oropharynx (no significant blood noted in posterior oropharynx), mucous membranes moist, TM's normal bilaterally, normal external ear exam, other (no hematomas noted in nares, no blood at this time.) Neck exam: Present: normal inspection, full ROM. Absent: tenderness, meningismus, lymphadenopathy Respiratory exam: Present: normal lung sounds bilaterally. Absent: respiratory distress, wheezes, rales, rhonchi, stridor Cardiovascular Exam: Present: regular rate, normal rhythm, normal heart sounds. Absent: systolic murmur, diastolic murmur, rubs, gallop, clicks Neurological exam: Present: alert, oriented X3, CN II-XII intact Psychiatric exam: Present: normal affect, normal mood Course Vital Signs 02/09/19 09:59 Temperature 98.0 F Pulse Rate 90 Respiratory 18 Rate Blood Pressure 132/65 O2 Sat by Pulse 90 L Oximetry Medical Decision Making - Medical Decision Making 78-year-old female presents to the emergency department for a chief complaint of nosebleed. Upon presentation bleeding had stopped however while in the emergency department bleeding did start again out of the right nares. Clots were removed. Patient was packed with to 8 cm [place] in the right naris. TXA was administered topically with packing. This did stop the bleeding. Patient's vitals are stable. Patient is 90% on room air however this is chronic due to COPD. Patient is feeling well at this time. Discussed antibiotic usage as well as having ENT removed packing in 3 days. Discussed returning here if she has any worsening symptoms or she is unable to get into ENT. Disposition Clinical Impression: Epistaxis Disposition: HOME SELF-CARE Condition: Good Instructions (If sedation given, give patient instructions): Nosebleed (ED) Additional Instructions: Please keep packing in nose. Take antibiotic as directed. Please follow-up with ENT on Monday or Monday to have packing removed. Make sure to tell them you have packing in place. Return here to the emergency department if you have any worsening symptoms.. Prescriptions: Amoxicillin/Potassium Clav [Augmentin 875-125 Tablet] 1 tab PO Q12HR #10 tab Is patient prescribed a controlled substance at d/c from ED?: No Referrals: Neptali Ariza DO [Primary Care Provider] - 1-2 days Genaro Johnston MD [STAFF PHYSICIAN] - 1-2 days Time of Disposition: 10:35
[2019-02-09] MEDS ORDERED: TRANEXAMIC ACID 1,000 MG/10 ML VIAL MISCELLANE ONE (12:22)
[2019-02-09 13:43] VITALS: BP 152/78; PULSE 85; RESP 20; TEMP 97.7
== END 2019-02-09 13:50 | disposition home or self-care (01) ==
LOC: EC 09:57
DX: R04.0 Epistaxis (principal); J44.9 Chronic obstructive pulmonary disease, unspecified; E78.5 Hyperlipidemia, unspecified; I10 Essential (primary) hypertension; J96.11 Chronic respiratory failure with hypoxia; Z87.891 Personal history of nicotine dependence; Z88.0 Allergy status to penicillin; Z88.1 Allergy status to other antibiotic agents; Z88.5 Allergy status to narcotic agent; Z88.8 Allergy status to other drugs, medicaments and biological substances; Z79.51 Long term (current) use of inhaled steroids; Z79.899 Other long term (current) drug therapy; Z95.818 Presence of other cardiac implants and grafts
CPT/HCPCS: 30901; 99283

== ENCOUNTER 2019-02-11 02:21 | Emergency (ER) | payer MEDICARE ==
[2019-02-11 02:31] VITALS: TEMP 98
[2019-02-11] MEDS ORDERED: LIDOCAINE 1%-EPI 1:100,000 20 ML VIAL SQ STA (02:56)
[2019-02-11] MEDS ORDERED: OXYMETAZOLINE 0.05% NASL SPRAY 1 SPRAY BOTTLE NASAL STA (02:56)
--- NOTE | 2019-02-11 03:33 | ED ---
ENT HPI - General Chief complaint: ENT Stated complaint: Nose Bleed Time Seen by Provider: 02/11/19 02:38 Source: patient Mode of arrival: ambulatory Limitations: no limitations - History of Present Illness Initial comments: Yakelin is a 78 yo female with PMH of oxygen dependent COPD and history of chronic sinus problems and sinus surgeries in the past. Patient was evaluated in our hospital earlier in the week for nosebleed and had nasal packing. Placed. Patient reports she's been doing well since that time however this evening she noticed that her nose was bleeding again so she came to the ER for evaluation. Patient reports only mild trickling of blood from her nose. - Related Data Home Medications Medication Instructions Recorded Confirmed Cholecalciferol (Vitamin D3) 2,000 unit PO HS 09/25/17 02/09/19 [Vitamin D3] Metoprolol Succinate [Toprol XL] 12.5 mg PO DAILY 09/25/17 02/09/19 amLODIPine [Norvasc] 5 mg PO DAILY 09/25/17 02/09/19 Albuterol Inhaler [Ventolin Hfa 2 puff INHALATION RT-Q6H PRN 02/09/18 02/09/19 Inhaler] Budesonide-Formot 160-4.5 Mcg 2 puff INHALATION RT-BID 02/09/18 02/09/19 [Symbicort 160-4.5 Mcg Inhaler] Atorvastatin [Lipitor] 10 mg PO HS 09/29/18 02/09/19 Loratadine [Claritin] 10 mg PO DAILY 01/10/19 02/09/19 Albuterol Nebulized [Ventolin 2.5 mg INHALATION RT-Q6H PRN 02/09/19 02/09/19 Nebulized] Hydrochlorothiazide [Hydrodiuril] 25 mg PO DAILY 02/09/19 02/09/19 Previous Rx's Medication Instructions Recorded Amoxicillin/Potassium Clav 1 tab PO Q12HR #10 tab 02/09/19 [Augmentin 875-125 Tablet] Allergies Allergy/AdvReac Type Severity Reaction Status Date / Time amoxicillin [From Augmentin] Allergy Unknown Verified 02/09/19 10:28 clavulanic acid Allergy Unknown Verified 02/09/19 10:28 [From Augmentin] levofloxacin [From Levaquin] Allergy Unknown Verified 02/09/19 10:28 losartan Allergy Unknown Verified 02/09/19 10:28 moxifloxacin HCl Allergy Rash/Hives, Verified 02/09/19 10:28 [From Avelox] SWELLING nitrofurantoin Allergy Rash/Hives Verified 02/09/19 10:28 hydrocodone bitartrate AdvReac Nausea & Verified 02/09/19 10:28 [From Lortab] Vomiting simvastatin AdvReac muscle pain Verified 02/09/19 10:28 Ctsxwuh-Sly-Fzk Reductase AdvReac MUSCLE PAIN Verified 02/09/19 10:28 Inhibitor Review of Systems ROS Statement: Those systems with pertinent positive or pertinent negative responses have been documented in the HPI. ROS Other: All systems not noted in ROS Statement are negative. Past Medical History Past Medical History: Asthma, COPD, Hyperlipidemia, Hypertension, Osteoarthritis (OA), Pneumonia, Respiratory Disorder Additional Past Medical History / Comment(s): COPD with bullous changes in the upper lobes bilaterally, chronic hypoxic respiratory failure, hypertension, hyperlipidemia, lt arm fx 11/29/18 History of Any Multi-Drug Resistant Organisms: None Reported Past Surgical History: Appendectomy, Bowel Resection, Cholecystectomy, Heart Catheterization, Orthopedic Surgery, Tubal Ligation Additional Past Surgical History / Comment(s): 11/11/15 bronchoscopy and lavage, bowel resection due to diverticulitis 2012, bilat knee arthroscopy, sinus surgery, carpal tunnel left wrist, colonoscopy. Left wrist frature with pins placed 12-07-2018 Past Anesthesia/Blood Transfusion Reactions: No Reported Reaction Additional Past Anesthesia/Blood Transfusion Reaction / Comment(s): has never received blood Past Psychological History: No Psychological Hx Reported Smoking Status: Former smoker Past Alcohol Use History: None Reported Past Drug Use History: None Reported - Past Family History Mother Family Medical History: Myocardial Infarction ([place]) Additional Family Medical History / Comment(s): Mother of [place] at age 65 yrs. Sister(s) Family Medical History: Cancer Additional Family Medical History / Comment(s): Twin sister had LUNG cancer. Father Family Medical History: Cancer Additional Family Medical History / Comment(s): Father had cancer in his neck. General Exam - General Exam Comments Initial Comments: Physical Exam GENERAL: Patient is well-developed and well-nourished. Patient is nontoxic and well-hydrated and is in no distress. HENT: Normocephalic, Atraumatic. Packing and Large blood clot removed from nose, there is some irritation of the nasal mucosa, no obvious bleeding a little bit of oozing. Clamp was placed EYES: PERRL, EOMI PULMONARY: Unlabored respirations. CARDIOVASCULAR: There is a regular rate and rhythm without any murmurs gallops or rubs. ABDOMEN: Soft and nontender with normal bowel sounds. SKIN: Skin is clear with no lesions or rashes and otherwise unremarkable. : Deferred NEUROLOGIC: Patient is alert and oriented x3. Moving all extremities spontaneously MUSCULOSKELETAL: Normal extremities with adequate strength and full range of motion. No lower extremity swelling or edema. No calf tenderness. PSYCHIATRIC: Normal psychiatric evaluation. Limitations: no limitations Limitations: no limitations Course Vital Signs 02/11/19 02/11/19 02:29 04:45 Temperature 98.0 F Pulse Rate 82 70 Respiratory 18 16 Rate Blood Pressure 157/76 154/81 O2 Sat by Pulse 91 L Oximetry Medical Decision Making - Medical Decision Making Patient was seen and evaluated history is obtained from the patient excited patient has mild bruising around her nasal packing, packing was removed There is some irritation of the nasal mucosa no obvious bleeding or area that can be cauterized Patient remained in the emergency department for 2 hours. She had mild oozing of blood but no active bleeding. I did offer to repack the nose however patient would prefer to be discharged home at this time she will follow-up with ENT later today for further evaluation. Disposition Clinical Impression: Epistaxis Disposition: HOME SELF-CARE Condition: Stable Instructions (If sedation given, give patient instructions): Nosebleed (ED) Is patient prescribed a controlled substance at d/c from ED?: No Referrals: Neptali Ariza DO [Primary Care Provider] - 1-2 days Nicolas Nova MD [STAFF PHYSICIAN] - 1-2 days
[2019-02-11 04:47] VITALS: BP 154/81; PULSE 70; RESP 16
== END 2019-02-11 04:47 | disposition home or self-care (01) ==
LOC: EC 02:21
DX: R04.0 Epistaxis (principal); J44.9 Chronic obstructive pulmonary disease, unspecified; E78.5 Hyperlipidemia, unspecified; I10 Essential (primary) hypertension; Z99.81 Dependence on supplemental oxygen; Z95.818 Presence of other cardiac implants and grafts; Z87.891 Personal history of nicotine dependence; Z79.51 Long term (current) use of inhaled steroids; Z79.899 Other long term (current) drug therapy; Z88.0 Allergy status to penicillin; Z88.1 Allergy status to other antibiotic agents; Z88.8 Allergy status to other drugs, medicaments and biological substances; Z88.5 Allergy status to narcotic agent
CPT/HCPCS: 99283

== ENCOUNTER 2019-03-22 10:36 | Inpatient (IN) | payer MEDICARE ==
[2019-03-22] MEDS ORDERED: SODIUM CHLORIDE 0.9% 500 ML 500 ML IV STA (10:54)
[2019-03-22] MEDS ORDERED: IPRATROPIUM-ALBUTEROL 3 ML NEB INHALATION STA (10:54)
[2019-03-22] MEDS ORDERED: methylPREDNISolone SOD SUCCI 125 MG/2 ML VIAL IV STA (10:54)
--- NOTE | 2019-03-22 11:24 | ED ---
SOB HPI - General Source: patient, RN notes reviewed Mode of arrival: ambulatory Limitations: no limitations <Johnson Felix - Last Filed: 03/22/19 12:54> <Gianluca Ayers - Last Filed: 03/22/19 12:57> - General Chief Complaint: Shortness of Breath Stated Complaint: ELIAS Time Seen by Provider: 03/22/19 10:45 - History of Present Illness Initial Comments: 78-year-old female presents emergency Department from Dr. Sarabia's office chief complaint of shortness of breath. Patient states that she has been sick since last weekend was treated at urgent care follow-up with Dr. Sarabia on Monday and was advised to come back to the office if no improvement. Patient states she is felt worse. She is currently on prednisone and Bactrim. Patient states that she has productive cough, increased wheezing and shortness breath. She does have underlying COPD oxygen dependent. Patient denies fever, chills, pleuritic chest pain denies any current nausea vomiting. Patient states that she's had multiple x-rays week with no acute findings, Dr. Sarabia is recommending CAT scan. (Johnson Felix) - Related Data Home Medications Medication Instructions Recorded Confirmed Cholecalciferol (Vitamin D3) 2,000 unit PO HS 09/25/17 03/22/19 [Vitamin D3] Metoprolol Succinate [Toprol XL] 12.5 mg PO DAILY 09/25/17 03/22/19 amLODIPine [Norvasc] 5 mg PO DAILY 09/25/17 03/22/19 Albuterol Inhaler [Ventolin Hfa 2 puff INHALATION RT-Q6H PRN 02/09/18 03/22/19 Inhaler] Budesonide-Formot 160-4.5 Mcg 2 puff INHALATION RT-BID 02/09/18 03/22/19 [Symbicort 160-4.5 Mcg Inhaler] Atorvastatin [Lipitor] 10 mg PO HS 09/29/18 03/22/19 Loratadine [Claritin] 10 mg PO DAILY 01/10/19 03/22/19 Hydrochlorothiazide [Hydrodiuril] 25 mg PO DAILY 02/09/19 03/22/19 Ipratropium-Albuterol Nebulize 3 ml INHALATION RT-QID 03/22/19 03/22/19 [Duoneb 0.5 mg-3 mg/3 ml Soln] Allergies Allergy/AdvReac Type Severity Reaction Status Date / Time amoxicillin [From Augmentin] Allergy Unknown Verified 03/22/19 10:52 clavulanic acid Allergy Unknown Verified 03/22/19 10:52 [From Augmentin] levofloxacin [From Levaquin] Allergy Unknown Verified 03/22/19 10:52 losartan Allergy Unknown Verified 03/22/19 10:52 moxifloxacin HCl Allergy Rash/Hives, Verified 03/22/19 10:52 [From Avelox] SWELLING nitrofurantoin Allergy Rash/Hives Verified 03/22/19 10:52 hydrocodone bitartrate AdvReac Nausea & Verified 03/22/19 10:52 [From Lortab] Vomiting simvastatin AdvReac muscle pain Verified 03/22/19 10:52 Bucczcj-Hlk-Frb Reductase AdvReac MUSCLE PAIN Verified 03/22/19 10:52 Inhibitor Review of Systems ROS Other: All systems not noted in ROS Statement are negative. <Johnson Felix - Last Filed: 03/22/19 12:54> ROS Other: All systems not noted in ROS Statement are negative. <Gianluca Ayers - Last Filed: 03/22/19 12:57> ROS Statement: Those systems with pertinent positive or pertinent negative responses have been documented in the HPI. Past Medical History Past Medical History: Asthma, COPD, Hyperlipidemia, Hypertension, Osteoarthritis (OA), Pneumonia, Respiratory Disorder Additional Past Medical History / Comment(s): COPD with bullous changes in the upper lobes bilaterally, chronic hypoxic respiratory failure, hypertension, hyperlipidemia, lt arm fx 11/29/18 History of Any Multi-Drug Resistant Organisms: None Reported Past Surgical History: Appendectomy, Bowel Resection, Cholecystectomy, Heart Catheterization, Orthopedic Surgery, Tubal Ligation Additional Past Surgical History / Comment(s): 11/11/15 bronchoscopy and lavage, bowel resection due to diverticulitis 2012, bilat knee arthroscopy, sinus surgery, carpal tunnel left wrist, colonoscopy. Left wrist frature with pins placed 12-07-2018 Past Anesthesia/Blood Transfusion Reactions: No Reported Reaction Additional Past Anesthesia/Blood Transfusion Reaction / Comment(s): has never received blood Past Psychological History: No Psychological Hx Reported Smoking Status: Former smoker Past Alcohol Use History: None Reported Past Drug Use History: None Reported - Past Family History Mother Family Medical History: Myocardial Infarction ([place]) Additional Family Medical History / Comment(s): Mother of [place] at age 65 yrs. Sister(s) Family Medical History: Cancer Additional Family Medical History / Comment(s): Twin sister had LUNG cancer. Father Family Medical History: Cancer Additional Family Medical History / Comment(s): Father had cancer in his neck. <NailaJohnson dumont - Last Filed: 03/22/19 12:54> General Exam Limitations: no limitations General appearance: alert, in no apparent distress Head exam: Present: atraumatic, normocephalic, normal inspection Eye exam: Present: normal appearance, PERRL, EOMI. Absent: scleral icterus, conjunctival injection, periorbital swelling ENT exam: Present: normal exam, normal oropharynx, mucous membranes moist Neck exam: Present: normal inspection. Absent: tenderness, meningismus, lymphadenopathy Respiratory exam: Present: respiratory distress (Mild), wheezes, other. Absent: normal lung sounds bilaterally, rales, rhonchi, stridor Cardiovascular Exam: Present: regular rate, normal rhythm, normal heart sounds. Absent: systolic murmur, diastolic murmur, rubs, gallop, clicks GI/Abdominal exam: Present: soft, normal bowel sounds. Absent: distended, tenderness, guarding, rebound, rigid Extremities exam: Absent: pedal edema Neurological exam: Present: alert, oriented X3, CN II-XII intact Skin exam: Present: warm, dry, intact, normal color. Absent: rash <NailaJohnson dumont - Last Filed: 03/22/19 12:54> Course <Gianluca Ayers - Last Filed: 03/22/19 12:57> Vital Signs 03/22/19 03/22/19 03/22/19 10:41 11:31 11:51 Temperature 98.1 F Pulse Rate 84 80 93 Respiratory 28 H Rate Blood Pressure 120/68 O2 Sat by Pulse 91 L Oximetry - Reevaluation(s) Reevaluation #1: 03/22/19 12:56 PA supervision: I personally [id number] evaluation patient did discuss findings with her she presents with shortness of breath is been going on for the past 5 days and in spite of aggressive treatment is getting worse not better she is outpatient treatment failure. She will be admitted I did discuss the case with Dr. Mitchell. Dr. Barragan and will be consulted. I do agree with the asses sment and plan. (Gianluca Ayers) Medical Decision Making - Lab Data Result diagrams: 03/22/19 11:05 03/22/19 11:05 <Johnson Felix - Last Filed: 03/22/19 12:54> - Lab Data Result diagrams: 03/22/19 11:05 03/22/19 11:05 <Gianluca Ayers - Last Filed: 03/22/19 12:57> - Medical Decision Making 78-year-old female presented emergency from for dyspnea. Patient is a line COPD and has been on treatment for COPD exacerbation has failed outpatient treatment CT does not reveal any evidence of PE or mass. Patient will be admitted at this time for IV steroids and repeated treatments (Johnson Felix) - Lab Data Lab Results 03/22/19 03/22/19 03/22/19 Range/Units 11:05 11:05 11:05 WBC 6.9 (3.8-10.6) k/uL RBC 4.90 (3.80-5.40) m/uL Hgb 13.0 (11.4-16.0) gm/dL Hct 41.5 (34.0-46.0) % MCV 84.7 (80.0-100.0) fL MCH 26.5 (25.0-35.0) pg MCHC 31.3 (31.0-37.0) g/dL RDW 15.6 H (11.5-15.5) % Plt Count 329 (150-450) k/uL Neutrophils % 84 % Lymphocytes % 11 % Monocytes % 3 % Eosinophils % 0 % Basophils % 1 % Neutrophils # 5.8 (1.3-7.7) k/uL Lymphocytes # 0.8 L (1.0-4.8) k/uL Monocytes # 0.2 (0-1.0) k/uL Eosinophils # 0.0 (0-0.7) k/uL Basophils # 0.1 (0-0.2) k/uL Hypochromasia Moderate PT 10.2 (9.0-12.0) sec INR 0.9 (<1.2) APTT 22.7 (22.0-30.0) sec Sodium 137 (137-145) mmol/L Potassium 4.8 (3.5-5.1) mmol/L Chloride 104 (98-107) mmol/L Carbon Dioxide 21 L (22-30) mmol/L Anion Gap 12 mmol/L BUN 21 H (7-17) mg/dL Creatinine 0.74 (0.52-1.04) mg/dL Est GFR (CKD-EPI)AfAm >90 (>60 ml/min/1.73 sqM) Est GFR (CKD-EPI)NonAf 79 (>60 ml/min/1.73 sqM) Glucose 154 H (74-99) mg/dL Calcium 9.5 (8.4-10.2) mg/dL Magnesium 2.1 (1.6-2.3) mg/dL Total Bilirubin 0.4 (0.2-1.3) mg/dL AST 39 H (14-36) U/L ALT 39 (9-52) U/L Alkaline Phosphatase 70 (38-126) U/L Troponin I (0.000-0.034) ng/mL NT-Pro-B Natriuret Pep pg/mL Total Protein 7.3 (6.3-8.2) g/dL Albumin 4.3 (3.5-5.0) g/dL 03/22/19 03/22/19 Range/Units 11:05 11:45 WBC (3.8-10.6) k/uL RBC (3.80-5.40) m/uL Hgb (11.4-16.0) gm/dL Hct (34.0-46.0) % MCV (80.0-100.0) fL MCH (25.0-35.0) pg MCHC (31.0-37.0) g/dL RDW (11.5-15.5) % Plt Count (150-450) k/uL Neutrophils % % Lymphocytes % % Monocytes % % Eosinophils % % Basophils % % Neutrophils # (1.3-7.7) k/uL Lymphocytes # (1.0-4.8) k/uL Monocytes # (0-1.0) k/uL Eosinophils # (0-0.7) k/uL Basophils # (0-0.2) k/uL Hypochromasia PT (9.0-12.0) sec INR (<1.2) APTT (22.0-30.0) sec Sodium (137-145) mmol/L Potassium (3.5-5.1) mmol/L Chloride (98-107) mmol/L Carbon Dioxide (22-30) mmol/L Anion Gap mmol/L BUN (7-17) mg/dL Creatinine (0.52-1.04) mg/dL Est GFR (CKD-EPI)AfAm (>60 ml/min/1.73 sqM) Est GFR (CKD-EPI)NonAf (>60 ml/min/1.73 sqM) Glucose (74-99) mg/dL Calcium (8.4-10.2) mg/dL Magnesium (1.6-2.3) mg/dL Total Bilirubin (0.2-1.3) mg/dL AST (14-36) U/L ALT (9-52) U/L Alkaline Phosphatase (38-126) U/L Troponin I <0.012 (0.000-0.034) ng/mL NT-Pro-B Natriuret Pep 344 pg/mL Total Protein (6.3-8.2) g/dL Albumin (3.5-5.0) g/dL - EKG Data EKG Comments: EKG performed at 11:04 normal sinus rhythm rate of 74 CA 140 QRS 88 QT/QTC 372/412 (Johnson Felix) Disposition <Johnson Felix - Last Filed: 03/22/19 12:54> <Gianluca Ayers - Last Filed: 03/22/19 12:57> Clinical Impression: Acute exacerbation of chronic obstructive airways disease, Failure of outpatient treatment Disposition: ADMITTED IP TO THIS HOSP Condition: Fair Referrals: Neptali Ariza DO [Primary Care Provider] - 1-2 days
[2019-03-22 11:25] LABS: Basophils # (A) 0.1 k/uL (0-0.2); Basophils % (A) 1 %; Eosinophils % (A) 0 %; HCT 41.5 % (34.0-46.0); Hypochromasia Moderate; Lymphocytes # (A) 0.8 k/uL (1.0-4.8); Lymphocytes % (A) 11 %; MCH 26.5 pg (25.0-35.0); MCHC 31.3 g/dL (31.0-37.0); MCV 84.7 fL (80.0-100.0); Mean Platelet Volume 7.5; Monocytes # (A) 0.2 k/uL (0-1.0); Monocytes % (A) 3 %; Neutrophils # (A) 5.8 k/uL (1.3-7.7); Neutrophils % (A) 84 %; Platelet Count 329 k/uL (150-450); RDW 15.6 % (11.5-15.5); WBC 6.9 k/uL (3.8-10.6)
[2019-03-22 11:35] LABS: ALT 39 U/L (9-52); AST 39 U/L (14-36); African American GFR (CKD) >90 (>60 ml/min/1.73 sqM); Albumin 4.3 g/dL (3.5-5.0); Alkaline Phosphatase 70 U/L (38-126); Anion Gap 12 mmol/L; Blood Urea Nitrogen 21 mg/dL (7-17); Calcium 9.5 mg/dL (8.4-10.2); Carbon Dioxide 21 mmol/L (22-30); Chloride 104 mmol/L (98-107); Glucose 154 mg/dL (74-99); Magnesium 2.1 mg/dL (1.6-2.3); Potassium 4.8 mmol/L (3.5-5.1); Sodium 137 mmol/L (137-145); Total Bilirubin 0.4 mg/dL (0.2-1.3); Total Protein 7.3 g/dL (6.3-8.2)
[2019-03-22 11:47] LABS: INR 0.9 (<1.2); Partial Thromboplastin Time 22.7 sec (22.0-30.0); Prothrombin Time 10.2 sec (9.0-12.0)
--- NOTE | 2019-03-22 12:49 | CT ---
EXAMINATION TYPE: CT chest angio for PE DATE OF EXAM: 03/22/2019 COMPARISON: CT 12/10/2018 HISTORY: SOB CT DLP: 239.6 mGycm Automated exposure control for dose reduction was used. CONTRAST: CT Chest for pulmonary embolism performed with with IV Contrast, patient injected with 70 mL of Isovu e 370. FINDINGS: LUNGS: The lungs are improved in the abnormal consolidation seen in the right upper lobe, persistent small cavitary areas are present in the right upper lobe with wall thickening, there is extensive emp hysematous change as noted on prior CT. Some prominence of interstitium. There is no pleural effusion or pneumothorax seen. The tracheobronchial tree is patent. MEDIASTINUM: There is satisfactory enhancement of the pulmonary artery and its branches, there is no CT evidence for pulmonary embolism. There are no greater than 1 cm mediastinal lymph nodes. Right hi lar adenopathy has improved. No pericardial effusion is seen. Prominence of pulmonary artery may b e indicative of pulmonary artery hypertension. AORTA: No additional significant abnormality is seen. OTHER: No additional significant abnormality is seen. IMPRESSION: No evident pulmonary embolism. Emphysema and additional findings above.
[2019-03-22 13:28] VITALS: BMI 25.1
[2019-03-22] MEDS ORDERED: ALBUTEROL NEBULIZED 2.5 MG/3 ML INHALATION SCH (14:00)
[2019-03-22] MEDS ORDERED: IPRATROPIUM-ALBUTEROL 3 ML NEB INHALATION PRN (15:21)
[2019-03-22] MEDS: IPRATROPIUM-ALBUTEROL 3 ML NEB INHALATION SCH ×2 (15:52→20:10)
--- NOTE | 2019-03-22 17:15 | P.CNPUL ---
History of Present Illness Consult date: 03/22/19 Requesting physician: Pradip E Sheet Reason for consult: dyspnea History of present illness: This is a 78-year-old female patient of Dr. Ariza with past medical history of COPD, chronic hypercapnic respiratory failure, closed with Dr. Sarabia in the pulmonary clinic, and has a baseline FEV1 of 1.28 L or 68% of predicted, and decreased diffusion capacity, who was sent to the emergency department from Dr. Sarabia's office with complaints of shortness of breath, that failed to improve after outpatient treatment for acute COPD exacerbation. Patient has been sick since last weekend, she was treated with Depo-Medrol, IM Rocephin, Medrol Dosepak and Bactrim at the urgent care clinic, she was seen by Dr. Sarabia in follow-up on 03/20/2019 and was not feeling much better. Dr. Sarabia instructed the patient to finish the Bactrim course, increased no oral steroids to prednisone taper starting at 50 mg daily. Patient did not improve, and came in complaining of coughing, wheezing, and bringing up some phlegm. But she denied any fever, chills, pleuritic chest pain, no nausea or vomiting. Chest x-ray was done on 03/20/2019 showing right upper lobe cavitary opacity that was previously seen on previous chest x-rays. CT angios chest was completed showing no evidence pulmonary embolism, persistent small cavitary areas in the right upper lobe with wall thickening, and extensive emphysematous changes with some prominence of interstitium. Labs showed a white blood cell, 6.9, hemoglobin at 13.0, serum sodium was 137, potassium is 4.8, chloride was 104, CO2 is 21, BUN is 21, creatinine 0.74. Troponin was negative 1, proBNP was 344, afebrile, hemodynamically stable, pulse ox is 91% on 2 L. She was started on IV steroids, nebulized bronchodilators, and admitted for further monitoring and management. Review of Systems All systems: negative Constitutional: Denies chills, Denies fever Eyes: denies blurred vision, denies pain Ears, nose, mouth and throat: Denies headache, Denies sore throat Cardiovascular: Denies chest pain, Denies shortness of breath Respiratory: Reports congestion, Reports cough, Reports dyspnea Gastrointestinal: Denies abdominal pain, Denies diarrhea, Denies nausea, Denies vomiting Genitourinary: Denies dysuria, Denies hematuria Musculoskeletal: Denies myalgias Integumentary: Denies pruritus, Denies rash Neurological: Denies numbness, Denies weakness Psychiatric: Denies anxiety, Denies depression Endocrine: Denies fatigue, Denies weight change Past Medical History Past Medical History: Asthma, COPD, Hyperlipidemia, Hypertension, Osteoarthritis (OA), Pneumonia, Respiratory Disorder Additional Past Medical History / Comment(s): COPD with bullous changes in the upper lobes bilaterally, chronic hypoxic respiratory failure, home oxygen at 2L/NC ATC, lt arm fx 11/29/18, arthritis in multiple joints, chronic low back pain, herniated lumbar discs, left sided sciatica, diverticulitis, urinary leakage. History of Any Multi-Drug Resistant Organisms: None Reported Past Surgical History: Appendectomy, Bowel Resection, Cholecystectomy, Heart Catheterization, Orthopedic Surgery, Tubal Ligation Additional Past Surgical History / Comment(s): Bronchoscopies/lavages, bowel resection due to diverticulitis 2012, bilat knee arthroscopy, sinus surgery twice, carpal tunnel left wrist, colonoscopy, back injections, left wrist frature with pins placed 12-07-2018 and since removed. Past Anesthesia/Blood Transfusion Reactions: No Reported Reaction Additional Past Anesthesia/Blood Transfusion Reaction / Comment(s): has never received blood Past Psychological History: No Psychological Hx Reported Additional Psychological History / Comment(s): Pt lives alone. She is independent. She uses no assistive device. She drives. She has home 02 2 liters n/c ATC and would like a concentrator. She has a nebulizer. Smoking Status: Former smoker Past Alcohol Use History: None Reported Additional Past Alcohol Use History / Comment(s): QUIT SMOKING 1997, STARTED AGE 18(1957) smoked <1ppd when she smoked Past Drug Use History: None Reported - Past Family History Mother Family Medical History: Myocardial Infarction ([place]) Additional Family Medical History / Comment(s): Mother of [place] at age 65 yrs. Sister(s) Family Medical History: Cancer Additional Family Medical History / Comment(s): Twin sister had LUNG cancer. Father Family Medical History: Cancer Additional Family Medical History / Comment(s): Father had cancer in his neck. Medications and Allergies Home Medications Medication Instructions Recorded Confirmed Type Cholecalciferol (Vitamin D3) 2,000 unit PO HS 09/25/17 03/22/19 History [Vitamin D3] Metoprolol Succinate [Toprol XL] 12.5 mg PO DAILY 09/25/17 03/22/19 History amLODIPine [Norvasc] 5 mg PO DAILY 09/25/17 03/22/19 History Albuterol Inhaler [Ventolin Hfa 2 puff INHALATION RT-Q6H PRN 02/09/18 03/22/19 History Inhaler] Budesonide-Formot 160-4.5 Mcg 2 puff INHALATION RT-BID 02/09/18 03/22/19 History [Symbicort 160-4.5 Mcg Inhaler] Atorvastatin [Lipitor] 10 mg PO HS 09/29/18 03/22/19 History Loratadine [Claritin] 10 mg PO DAILY 01/10/19 03/22/19 History Hydrochlorothiazide [Hydrodiuril] 25 mg PO DAILY 02/09/19 03/22/19 History Ipratropium-Albuterol Nebulize 3 ml INHALATION RT-QID 03/22/19 03/22/19 History [Duoneb 0.5 mg-3 mg/3 ml Soln] Allergies Allergy/AdvReac Type Severity Reaction Status Date / Time amoxicillin [From Augmentin] Allergy Unknown Verified 03/22/19 10:52 clavulanic acid Allergy Unknown Verified 03/22/19 10:52 [From Augmentin] levofloxacin [From Levaquin] Allergy Unknown Verified 03/22/19 10:52 losartan Allergy Unknown Verified 03/22/19 10:52 moxifloxacin HCl Allergy Rash/Hives, Verified 03/22/19 10:52 [From Avelox] SWELLING nitrofurantoin Allergy Rash/Hives Verified 03/22/19 10:52 hydrocodone bitartrate AdvReac Nausea & Verified 03/22/19 10:52 [From Lortab] Vomiting simvastatin AdvReac muscle pain Verified 03/22/19 10:52 Spwdicb-Jso-Avu Reductase AdvReac MUSCLE PAIN Verified 03/22/19 10:52 Inhibitor Physical Exam Vitals: Vital Signs Temp Pulse Resp BP Pulse Ox 03/22/19 13:36 98 114/74 95 03/22/19 11:51 93 03/22/19 11:31 80 03/22/19 10:41 98.1 F 84 28 H 120/68 91 L Intake and Output 03/21/19 03/22/19 03/22/19 22:59 06:59 14:59 Other: Weight 64.41 kg GENERAL EXAM: Alert, pleasant, 78-year-old white female, on 2 L of oxygen, with a pulse ox of 91%, comfortable in no apparent distress. HEAD: Normocephalic/atraumatic. EYES: Normal reaction of pupils, equal size. Conjunctiva pink, sclera white. NOSE: Clear with pink turbinates. THROAT: No erythema or exudates. NECK: No masses, no JVD, no thyroid enlargement, no adenopathy. CHEST: No chest wall deformity. Symmetrical expansion. LUNGS: Equal air entry with scattered wheezes, and rhonchi, diminished breath sounds, CVS: Regular rate and rhythm, normal S1 and S2, no gallops, no murmurs, no rubs ABDOMEN: Soft, nontender. No hepatosplenomegaly, normal bowel sounds, no guarding or rigidity. EXTREMITIES: No clubbing, no edema, no cyanosis, 2+ pulses and upper and lower extremities. MUSCULOSKELETAL: Muscle strength and tone normal. SPINE: No scoliosis or deformity SKIN: No rashes CENTRAL NERVOUS SYSTEM: Alert and oriented -3. No focal deficits, tone is normal in all 4 extremities. PSYCHIATRIC: Alert and oriented -3. Appropriate affect. Intact judgment and insight. Results - Laboratory Findings CBC and BMP: 03/22/19 11:05 03/22/19 11:05 PT/INR, D-dimer PT 10.2 sec (9.0-12.0) 03/22/19 11:05 INR 0.9 (<1.2) 03/22/19 11:05 Abnormal lab findings: Abnormal Labs 03/22/19 03/22/19 11:05 11:05 RDW 15.6 H Lymphocytes # 0.8 L Carbon Dioxide 21 L BUN 21 H Glucose 154 H AST 39 H - Diagnostic Findings Chest x-ray: report reviewed, image reviewed CT scan - chest: report reviewed, image reviewed Assessment and Plan Plan: Assessment: #1. Acute exacerbation of chronic obstructive pulmonary disease, with failure of outpatient treatment, CTA just chest was negative for any evidence of pulmonary embolism, showed chronic right upper lung cavitary opacity, extensive emphysematous changes, and possibility of mild interstitial prominence, with no other acute pulmonary process #2. History of moderately severe COPD, with baseline FEV1 of 1.28 L or 68% of predicted with decreased diffusion capacity, and this is stage 2 COPD #3. Chronic hypoxemic respiratory failure secondary to the above #4. Remote history of chronic tobacco dependence #5. Osteoarthritis #6. Hypertension #7. Hyperlipidemia #8. History of twin sister with lung cancer Plan: We'll continue IV steroids, nebulized bronchodilators, we'll add Pulmicort and Perforomist, will restart Claritin, we will finish the course of Bactrim. Sputum for culture, chest x-ray and CTA chest has been reviewed with Dr. Barragan, showing chronic emphysematous changes, and chronic right upper lung cavitary opacity, not significantly changed from previous radiographic studies. Patient had a bronchoscopy with BAL in December 2018, and brought coarse cytology and cultures were negative. We'll treat the patient for acute exacerbation of COPD. Obtain sputum culture. We'll follow I performed a history & physical examination of the patient and discussed their management with my nurse practitioner, Lor Ortiz. I reviewed the nurse pra ctitioner's note and agree with the documented findings and plan of care. Lung sounds are positive for diffuse wheezes throughout the lung schulz. The findings and the impression was discussed with the patient. I attest to the documentation by the nurse practitioner. Time with Patient: Greater than 30
[2019-03-22] MEDS: INSULIN ASPART (NovoLOG) 100 UNIT/ML VIAL SQ SCH ×2 (17:39→20:59)
[2019-03-22] MEDS: PROMETHAZ-COD 6.25-10 MG/5 ML 5 ML CUP PO PRN (17:43)
[2019-03-22] MEDS: methylPREDNISolone SOD SUCCI 125 MG/2 ML VIAL IV SCH (17:43)
--- NOTE | 2019-03-22 17:45 | P.HPIM ---
History of Present Illness H&P Date: 03/22/19 Chief Complaint: Shortness of breath 78-year-old female patient of Dr. Ariza with past medical history of COPD, chronic hypercapnic respiratory failure, closed with Dr. Sarabia in the pulmonary clinic, and has a baseline FEV1 of 1.28 L or 68% of predicted, and decreased diffusion capacity, who was sent to the emergency department from Dr. Sarabia's office with complaints of shortness of breath, that failed to improve after outpatient treatment for acute COPD exacerbation. Patient has been sick since last weekend, she was treated with Depo-Medrol, IM Rocephin, Medrol Dosepak and Bactrim at the urgent care clinic, she was seen by Dr. Sarabia in follow-up on 03/20/2019 and was not feeling much better. Dr. Sarabia instructed the patient to finish the Bactrim course, increased no oral steroids to prednisone taper starting at 50 mg daily. Patient did not improve, and came in complaining of coughing, wheezing, and bringing up some phlegm. But she denied any fever, chills, pleuritic chest pain, no nausea or vomiting. Chest x-ray was done on 03/20/2019 showing right upper lobe cavitary opacity that was previously seen on previous chest x-rays. CT angios chest was completed showing no evidence pulmonary embolism, persistent small cavitary areas in the right upper lobe with wall thickening, and extensive emphysematous changes with some prominence of interstitium. Labs showed a white blood cell, 6.9, hemoglobin at 13.0, serum sodium was 137, potassium is 4.8, chloride was 104, CO2 is 21, BUN is 21, creatinine 0.74. Troponin was negative 1, proBNP was 344, afebrile, hemodynamically stable, pulse ox is 91% on 2 L. She was started on IV steroids, nebulized bronchodilators, and admitted for further monitoring and management. Review of Systems Constitutional: Denies chills, Denies fever Eyes: denies blurred vision, denies pain Ears, nose, mouth and throat: Denies headache, Denies sore throat Cardiovascular: Denies chest pain, Denies shortness of breath Respiratory: Reports congestion, Reports cough, Reports dyspnea Gastrointestinal: Denies abdominal pain, Denies diarrhea, Denies nausea, Denies vomiting Genitourinary: Denies dysuria, Denies hematuria Musculoskeletal: Denies myalgias Integumentary: Denies pruritus, Denies rash Neurological: Denies numbness, Denies weakness Psychiatric: Denies anxiety, Denies depression Endocrine: Denies fatigue, Denies weight change Past Medical History Past Medical History: Asthma, COPD, Hyperlipidemia, Hypertension, Osteoarthritis (OA), Pneumonia, Respiratory Disorder Additional Past Medical History / Comment(s): COPD with bullous changes in the upper lobes bilaterally, chronic hypoxic respiratory failure, home oxygen at 2L/ [place] ATC, lt arm fx 11/29/18, arthritis in multiple joints, chronic low back pain, herniated lumbar discs, left sided sciatica, diverticulitis, urinary leakage. History of Any Multi-Drug Resistant Organisms: None Reported Past Surgical History: Appendectomy, Bowel Resection, Cholecystectomy, Heart Catheterization, Orthopedic Surgery, Tubal Ligation Additional Past Surgical History / Comment(s): Bronchoscopies/lavages, bowel resection due to diverticulitis 2012, bilat knee arthroscopy, sinus surgery twice, carpal tunnel left wrist, colonoscopy, back injections, left wrist frature with pins placed 12-07-2018 and since removed. Past Anesthesia/Blood Transfusion Reactions: No Reported Reaction Additional Past Anesthesia/Blood Transfusion Reaction / Comment(s): has never received blood Past Psychological History: No Psychological Hx Reported Additional Psychological History / Comment(s): Pt lives alone. She is indepe ndent. She uses no assistive device. She drives. She has home 02 2 liters n/c ATC and would like a concentrator. She has a nebulizer. Smoking Status: Former smoker Past Alcohol Use History: None Reported Additional Past Alcohol Use History / Comment(s): QUIT SMOKING 1997, STARTED AGE 18(1957) smoked <1ppd when she smoked Past Drug Use History: None Reported - Past Family History Mother Family Medical History: Myocardial Infarction ([place]) Additional Family Medical History / Comment(s): Mother of [place] at age 65 yrs. Sister(s) Family Medical History: Cancer Additional Family Medical History / Comment(s): Twin sister had LUNG cancer. Father Family Medical History: Cancer Additional Family Medical History / Comment(s): Father had cancer in his neck. Medications and Allergies Home Medications Medication Instructions Recorded Confirmed Type Cholecalciferol (Vitamin D3) 2,000 unit PO HS 09/25/17 03/22/19 History [Vitamin D3] Metoprolol Succinate [Toprol XL] 12.5 mg PO DAILY 09/25/17 03/22/19 History amLODIPine [Norvasc] 5 mg PO DAILY 09/25/17 03/22/19 History Albuterol Inhaler [Ventolin Hfa 2 puff INHALATION RT-Q6H PRN 02/09/18 03/22/19 History Inhaler] Budesonide-Formot 160-4.5 Mcg 2 puff INHALATION RT-BID 02/09/18 03/22/19 History [Symbicort 160-4.5 Mcg Inhaler] Atorvastatin [Lipitor] 10 mg PO HS 09/29/18 03/22/19 History Loratadine [Claritin] 10 mg PO DAILY 01/10/19 03/22/19 History Hydrochlorothiazide [Hydrodiuril] 25 mg PO DAILY 02/09/19 03/22/19 History Ipratropium-Albuterol Nebulize 3 ml INHALATION RT-QID 03/22/19 03/22/19 History [Duoneb 0.5 mg-3 mg/3 ml Soln] Allergies Allergy/AdvReac Type Severity Reaction Status Date / Time amoxicillin [From Augmentin] Allergy Unknown Verified 03/22/19 10:52 clavulanic acid Allergy Unknown Verified 03/22/19 10:52 [From Augmentin] levofloxacin [From Levaquin] Allergy Unknown Verified 03/22/19 10:52 losartan Allergy Unknown Verified 03/22/19 10:52 moxifloxacin HCl Allergy Rash/Hives, Verified 03/22/19 10:52 [From Avelox] SWELLING nitrofurantoin Allergy Rash/Hives Verified 03/22/19 10:52 hydrocodone bitartrate AdvReac Nausea & Verified 03/22/19 10:52 [From Lortab] Vomiting simvastatin AdvReac muscle pain Verified 03/22/19 10:52 Kavdern-Tbj-Elo Reductase AdvReac MUSCLE PAIN Verified 03/22/19 10:52 Inhibitor Physical Exam Vitals: Vital Signs Temp Pulse Pulse Resp BP BP Pulse Ox 03/22/19 15:07 20 03/22/19 14:46 97.5 F L 85 16 154/69 93 L 03/22/19 13:36 98 114/74 95 03/22/19 11:51 93 03/22/19 11:31 80 03/22/19 10:41 98.1 F 84 28 H 120/68 91 L Intake and Output 03/22/19 03/22/19 03/22/19 06:59 14:59 22:59 Other: Weight 64.41 kg GENERAL EXAM: Alert, pleasant, 78-year-old white female, on 2 L of oxygen, with a pulse ox of 91%, comfortable in no apparent distress. HEAD: Normocephalic/atraumatic. EYES: Normal reaction of pupils, equal size. Conjunctiva pink, sclera white. NOSE: Clear with pink turbinates. THROAT: No erythema or exudates. NECK: No masses, no JVD, no thyroid enlargement, no adenopathy. CHEST: No chest wall deformity. Symmetrical expansion. LUNGS: Equal air entry with scattered wheezes, and rhonchi, diminished breath sounds, CVS: Regular rate and rhythm, normal S1 and S2, no gallops, no murmurs, no rubs ABDOMEN: Soft, nontender. No hepatosplenomegaly, normal bowel sounds, no guarding or rigidity. EXTREMITIES: No clubbing, no edema, no cyanosis, 2+ pulses and upper and lower extremities. MUSCULOSKELETAL: Muscle strength and tone normal. SPINE: No scoliosis or deformity SKIN: No rashes CENTRAL NERVOUS SYSTEM: Alert and oriented -3. No focal deficits, tone is normal in all 4 extremities. Results CBC & Chem 7: 03/22/19 11:05 03/22/19 11:05 Labs: Abnormal Lab Results - Last 24 Hours (Table) 03/22/19 03/22/19 Range/Units 11:05 11:05 RDW 15.6 H (11.5-15.5) % Lymphocytes # 0.8 L (1.0-4.8) k/uL Carbon Dioxide 21 L (22-30) mmol/L BUN 21 H (7-17) mg/dL Glucose 154 H (74-99) mg/dL AST 39 H (14-36) U/L Thrombosis Risk Factor Assmnt - Choose All That Apply Any of the Below Risk Factors Present?: Yes Each Factor Represents 1 point: Abnormal pulmonary function (COPD) Other Risk Factors: Yes Each Risk Factor Represents 3 Points: Age 75 years or older Other congenital or acquired thrombophilia - If yes, enter type in comment: No Thrombosis Risk Factor Assessment Total Risk Factor Score: 4 Thrombosis Risk Factor Assessment Level: Moderate Risk Assessment and Plan Plan: 1. Acute exacerbation of chronic obstructive pulmonary disease, with failure of outpatient treatment, - CTA just chest was negative for any evidence of pulmonary embolism, showed chronic right upper lung cavitary opacity, extensive emphysematous changes, and possibility of mild interstitial prominence, with no other acute pulmonary process - Pulmonary and seen the patient and recommending to continue IV steroids, nebu lized bronchodilators, we'll add Pulmicort and Perforomist, will restart Claritin, we will finish the course of Bactrim. Sputum for culture, chest x-ray and CTA chest showing chronic emphysematous changes, and chronic right upper lung cavitary opacity, not significantly changed from previous radiographic studies. Patient had a bronchoscopy with BAL in December 2018, and brought coarse cytology and cultures were negative. We'll treat the patient for acute exacerbation of COPD. Obtain sputum culture. 2. History of moderately severe COPD, with baseline FEV1 of 1.28 L or 68% of predicted with decreased diffusion capacity, and this is stage 2 COPD 3. Chronic hypoxemic respiratory failure secondary to the above 4. Remote history of chronic tobacco dependence 5. Osteoarthritis 6. Hypertension; continue home dose of Norvasc 5 mg daily; hydrocodone 25 mg daily; Lopressor 12.5 mg twice a day 7. Hyperlipidemia; Lipitor 10 mg by mouth daily at bedtime 8. DVT prophylaxis; subcu Lovenox CODE STATUS; full code Time with Patient: Greater than 30
[2019-03-22] MEDS ORDERED: SYMBICORT 160-4.5 MCG INHALER INHALATION SCH (20:00)
[2019-03-22] MEDS: BUDESONIDE 1 MG/2 ML NEBU INHALATION SCH (20:10)
[2019-03-22] MEDS: FORMOTEROL FUMARATE 20 MCG/2 ML NEBU INHALATION SCH (20:10)
[2019-03-22] MEDS: guaiFENesin 600 MG TABLET.ER PO SCH (20:45)
[2019-03-22] MEDS: SULFAMETHOX-TMP 800-160MG 1 EACH TAB PO SCH (20:45)
[2019-03-22] MEDS: CHOLECALCIFEROL 1,000 UNIT TAB PO SCH ×2 (20:45→20:47)
[2019-03-22] MEDS: ATORVASTATIN 10 MG TAB PO SCH (20:46)
[2019-03-22 20:55] LABS: Glucose,Whole Blood 196 mg/dL (75-99)
[2019-03-23] MEDS: methylPREDNISolone SOD SUCCI 125 MG/2 ML VIAL IV SCH ×5 (00:28→23:03)
[2019-03-23] MEDS: PROMETHAZ-COD 6.25-10 MG/5 ML 5 ML CUP PO PRN ×2 (05:37→14:35)
[2019-03-23] MEDS: BUDESONIDE 1 MG/2 ML NEBU INHALATION SCH ×2 (06:03→19:15)
[2019-03-23] MEDS: IPRATROPIUM-ALBUTEROL 3 ML NEB INHALATION SCH ×4 (06:03→19:15)
[2019-03-23] MEDS: FORMOTEROL FUMARATE 20 MCG/2 ML NEBU INHALATION SCH ×2 (06:04→19:15)
[2019-03-23 06:43] LABS: Glucose,Whole Blood 152 mg/dL (75-99)
[2019-03-23] MEDS: amLODIPine 5 MG TAB PO SCH (08:26)
[2019-03-23] MEDS: INSULIN ASPART (NovoLOG) 100 UNIT/ML VIAL SQ SCH ×4 (08:26→21:03)
[2019-03-23] MEDS: LORATADINE 10 MG TAB PO SCH (08:26)
[2019-03-23] MEDS: guaiFENesin 600 MG TABLET.ER PO SCH ×2 (08:26→20:33)
[2019-03-23] MEDS: ENOXAPARIN 40 MG/0.4 ML SYRINGE SQ SCH (08:26)
[2019-03-23] MEDS: HYDROCHLOROTHIAZIDE 25 MG TAB PO SCH (08:26)
[2019-03-23] MEDS: SULFAMETHOX-TMP 800-160MG 1 EACH TAB PO SCH ×2 (08:26→20:32)
[2019-03-23] MEDS: METOPROLOL SUCCINATE (ER) 25 MG TAB.ER.24H PO SCH (08:26)
[2019-03-23 08:55] LABS: Basophils % (A) 0 %; Eosinophils % (A) 0 %; HCT 40.8 % (34.0-46.0); HGB 12.3 gm/dL (11.4-16.0); Hypochromasia Slight; Lymphocytes # (A) 0.8 k/uL (1.0-4.8); Lymphocytes % (A) 10 %; MCH 25.5 pg (25.0-35.0); MCHC 30.2 g/dL (31.0-37.0); MCV 84.4 fL (80.0-100.0); Monocytes # (A) 0.2 k/uL (0-1.0); Monocytes % (A) 3 %; Neutrophils # (A) 6.7 k/uL (1.3-7.7); Neutrophils % (A) 85 %; Platelet Count 393 k/uL (150-450); RBC 4.83 m/uL (3.80-5.40); RDW 14.7 % (11.5-15.5); WBC 7.9 k/uL (3.8-10.6)
[2019-03-23 09:11] LABS: African American GFR (CKD) >90 (>60 ml/min/1.73 sqM); Anion Gap 12 mmol/L; Blood Urea Nitrogen 19 mg/dL (7-17); Calcium 9.3 mg/dL (8.4-10.2); Carbon Dioxide 23 mmol/L (22-30); Chloride 103 mmol/L (98-107); Glucose 237 mg/dL (74-99); Potassium 4.6 mmol/L (3.5-5.1); Sodium 138 mmol/L (137-145)
[2019-03-23 11:20] LABS: Glucose,Whole Blood 108 mg/dL (75-99)
--- NOTE | 2019-03-23 13:59 | P.PN ---
Subjective Progress Note Date: 03/23/19 This is a 78-year-old female patient of Dr. Ariza with past medical history o f COPD, chronic hypercapnic respiratory failure, closed with Dr. Sarabia in the pulmonary clinic, and has a baseline FEV1 of 1.28 L or 68% of predicted, and decreased diffusion capacity, who was sent to the emergency department from Dr. Sarabia's office with complaints of shortness of breath, that failed to improve after outpatient treatment for acute COPD exacerbation. Patient has been sick since last weekend, she was treated with Depo-Medrol, IM Rocephin, Medrol Dosepak and Bactrim at the urgent care clinic, she was seen by Dr. Sarabia in follow-up on 03/20/2019 and was not feeling much better. Dr. Sarabia instructed the patient to finish the Bactrim course, increased no oral steroids to prednis one taper starting at 50 mg daily. Patient did not improve, and came in complaining of coughing, wheezing, and bringing up some phlegm. But she denied any fever, chills, pleuritic chest pain, no nausea or vomiting. Chest x-ray was done on 03/20/2019 showing right upper lobe cavitary opacity that was previously seen on previous chest x-rays. CT angios chest was completed showing no evidence pulmonary embolism, persistent small cavitary areas in the right upper lobe with wall thickening, and extensive emphysematous changes with some prominence of interstitium. Labs showed a white blood cell, 6.9, hemoglobin at 13.0, serum sodium was 137, potassium is 4.8, chloride was 104, CO2 is 21, BUN is 21, creatinine 0.74. Troponin was negative 1, proBNP was 344, afebrile, hemodynamically stable, pulse ox is 91% on 2 L. She was started on IV steroids, nebulized bronchodilators, and admitted for further monitoring and management. On today's evaluation of 03/23/2019, the patient is feeling better. The review the CAT scan of the chest. The cavitation and erythematous changes in the right upper lobe are residual from a previous pneumonia which are obviously improving. I would doubt this of infection at this point in time. For that reason, suggest continuing the Bactrim. Suggest continuing the bronchodilators and systemic steroids for now. She is doing well and she is improving. No fever. No chills. No hemoptysis. No other complaints otherwise for now. Objective - Vital Signs Vital signs: Vital Signs Temp 97.9 F 03/23/19 12:41 Pulse 84 03/23/19 12:41 Resp 18 03/23/19 12:41 BP 148/82 03/23/19 12:41 Pulse Ox 93 L 03/23/19 12:41 Intake & Output 03/22/19 03/23/19 03/23/19 18:59 06:59 18:59 Intake Total 200 Balance 200 Weight 64.41 kg 64.41 kg Intake: Oral 200 Other: Voiding Method Toilet # Voids 2 2 - Exam GENERAL EXAM: Alert, pleasant, 78-year-old white female, on 2 L of oxygen, with a pulse ox of 91%, comfortable in no apparent distress. HEAD: Normocephalic/atraumatic. EYES: Normal reaction of pupils, equal size. Conjunctiva pink, sclera white. NOSE: Clear with pink turbinates. THROAT: No erythema or exudates. NECK: No masses, no JVD, no thyroid enlargement, no adenopathy. CHEST: No chest wall deformity. Symmetrical expansion. LUNGS: Equal air entry with scattered wheezes, and rhonchi, diminished breath sounds, CVS: Regular rate and rhythm, normal S1 and S2, no gallops, no murmurs, no rubs ABDOMEN: Soft, nontender. No hepatosplenomegaly, normal bowel sounds, no guarding or rigidity. EXTREMITIES: No clubbing, no edema, no cyanosis, 2+ pulses and upper and lower extremities. MUSCULOSKELETAL: Muscle strength and tone normal. SPINE: No scoliosis or deformity SKIN: No rashes CENTRAL NERVOUS SYSTEM: Alert and oriented -3. No focal deficits, tone is normal in all 4 extremities. PSYCHIATRIC: Alert and oriented -3. Appropriate affect. Intact judgment and insight. - Labs CBC & Chem 7: 03/23/19 08:14 03/23/19 08:14 Labs: Abnormal Lab Results - Last 24 Hours (Table) 03/22/19 03/23/19 03/23/19 Range/Units 20:48 06:40 08:14 MCHC 30.2 L (31.0-37.0) g/dL Lymphocytes # 0.8 L (1.0-4.8) k/uL BUN (7-17) mg/dL Glucose (74-99) mg/dL POC Glucose (mg/dL) 196 H 152 H (75-99) mg/dL 03/23/19 03/23/19 Range/Units 08:14 11:19 MCHC (31.0-37.0) g/dL Lymphocytes # (1.0-4.8) k/uL BUN 19 H (7-17) mg/dL Glucose 237 H (74-99) mg/dL POC Glucose (mg/dL) 108 H (75-99) mg/dL Assessment and Plan Plan: #1. Acute exacerbation of chronic obstructive pulmonary disease, with failure of outpatient treatment, CTA just chest was negative for any evidence of pulmonary embolism, showed chronic right upper lung cavitary opacity, extensive emphysematous changes, and possibility of mild interstitial prominence, with no other acute pulmonary process #2. History of moderately severe COPD, with baseline FEV1 of 1.28 L or 68% of predicted with decreased diffusion capacity, and this is stage 2 COPD #3. Chronic hypoxemic respiratory failure secondary to the above #4. Remote history of chronic tobacco dependence #5. Osteoarthritis #6. Hypertension #7. Hyperlipidemia #8. History of twin sister with lung cancer Plan: The patient is doing well. Review the CAT scan of the chest. There are changes in the right upper lobe mass and the previous pneumonia. No evidence of any malignancy at this point in time and malignancy is doubtful. Continue same treatment. We'll continue to follow.
[2019-03-23 16:37] LABS: Glucose,Whole Blood 167 mg/dL (75-99)
[2019-03-23] MEDS: MELATONIN 3 MG TABLET PO SCH (20:33)
[2019-03-23] MEDS: ATORVASTATIN 10 MG TAB PO SCH (20:33)
[2019-03-23] MEDS: CHOLECALCIFEROL 1,000 UNIT TAB PO SCH (20:34)
[2019-03-23 21:03] LABS: Glucose,Whole Blood 195 mg/dL (75-99)
[2019-03-24] MEDS: methylPREDNISolone SOD SUCCI 125 MG/2 ML VIAL IV SCH ×4 (05:31→23:35)
[2019-03-24] MEDS: guaiFENesin 600 MG TABLET.ER PO SCH ×2 (07:25→21:08)
[2019-03-24] MEDS: LORATADINE 10 MG TAB PO SCH (07:25)
[2019-03-24] MEDS: SULFAMETHOX-TMP 800-160MG 1 EACH TAB PO SCH ×2 (07:25→21:08)
[2019-03-24] MEDS: METOPROLOL SUCCINATE (ER) 25 MG TAB.ER.24H PO SCH (07:25)
[2019-03-24] MEDS: amLODIPine 5 MG TAB PO SCH (07:26)
[2019-03-24] MEDS: ENOXAPARIN 40 MG/0.4 ML SYRINGE SQ SCH (07:26)
[2019-03-24] MEDS: HYDROCHLOROTHIAZIDE 25 MG TAB PO SCH (07:26)
[2019-03-24 07:35] LABS: Glucose,Whole Blood 137 mg/dL (75-99)
[2019-03-24] MEDS: INSULIN ASPART (NovoLOG) 100 UNIT/ML VIAL SQ SCH ×4 (07:52→21:08)
[2019-03-24 08:08] LABS: Basophils # (A) 0.1 k/uL (0-0.2); Basophils % (A) 1 %; Eosinophils % (A) 0 %; HCT 41.1 % (34.0-46.0); HGB 12.6 gm/dL (11.4-16.0); Hypochromasia Slight; Lymphocytes % (A) 8 %; MCH 25.8 pg (25.0-35.0); MCHC 30.7 g/dL (31.0-37.0); Mean Platelet Volume 6.8; Monocytes # (A) 0.3 k/uL (0-1.0); Monocytes % (A) 3 %; Neutrophils # (A) 10.5 k/uL (1.3-7.7); Neutrophils % (A) 86 %; Platelet Count 382 k/uL (150-450); RDW 14.6 % (11.5-15.5); WBC 12.1 k/uL (3.8-10.6)
[2019-03-24 08:20] LABS: African American GFR (CKD) >90 (>60 ml/min/1.73 sqM); Anion Gap 8 mmol/L; Blood Urea Nitrogen 23 mg/dL (7-17); Calcium 9.2 mg/dL (8.4-10.2); Carbon Dioxide 27 mmol/L (22-30); Chloride 102 mmol/L (98-107); Glucose 130 mg/dL (74-99); Potassium 4.6 mmol/L (3.5-5.1); Sodium 137 mmol/L (137-145)
[2019-03-24] MEDS: FORMOTEROL FUMARATE 20 MCG/2 ML NEBU INHALATION SCH ×2 (08:25→20:24)
[2019-03-24] MEDS: BUDESONIDE 1 MG/2 ML NEBU INHALATION SCH ×2 (08:25→20:23)
[2019-03-24] MEDS: IPRATROPIUM-ALBUTEROL 3 ML NEB INHALATION SCH ×4 (08:25→20:24)
--- NOTE | 2019-03-24 11:29 | P.PN ---
Subjective Progress Note Date: 03/24/19 Principal diagnosis: Acute exacerbation of chronic obstructive pulmonary disease. This is a 78-year-old female patient of Dr. Ariza with past medical history of COPD, chronic hypercapnic respiratory failure, closed with Dr. Sarabia in the pulmonary clinic, and has a baseline FEV1 of 1.28 L or 68% of predicted, and decreased diffusion capacity, who was sent to the emergency department from Dr. Sarabia's office with complaints of shortness of breath, that failed to improve after outpatient treatment for acute COPD exacerbation. Patient has been sick since last weekend, she was treated with Depo-Medrol, IM Rocephin, Medrol Dosepak and Bactrim at the urgent care clinic, she was seen by Dr. Sarabia in follow-up on 03/20/2019 and was not feeling much better. Dr. Sarabia instructed the patient to finish the Bactrim course, increased no oral steroids to prednisone taper starting at 50 mg daily. Patient did not improve, and came in complaining of coughing, wheezing, and bringing up some phlegm. But she denied any fever, chills, pleuritic chest pain, no nausea or vomiting. Chest x-ray was done on 03/20/2019 showing right upper lobe cavitary opacity that was previously seen on previous chest x-rays. CT angios chest was completed showing no evidence pulmonary embolism, persistent small cavitary areas in the right upper lobe with wall thickening, and extensive emphysematous changes with some prominence of interstitium. Labs showed a white blood cell, 6.9, hemoglobin at 13.0, serum sodium was 137, potassium is 4.8, chloride was 104, CO2 is 21, BUN is 21, creatinine 0.74. Troponin was negative 1, proBNP was 344, afebrile, hemodynamically stable, pulse ox is 91% on 2 L. She was started on IV steroids, nebulized bronchodilators, and admitted for further monitoring and management. On today's evaluation of 03/23/2019, the patient is feeling better. The review the CAT scan of the chest. The cavitation and erythematous changes in the right upper lobe are residual from a previous pneumonia which are obviously improving. I would doubt this of infection at this point in time. For that reason, suggest continuing the Bactrim. Suggest continuing the bronchodilators and systemic steroids for now. She is doing well and she is improving. No fever. No chills. No hemoptysis. No other complaints otherwise for now. The patient is seen today 03/24/2019 in follow-up on the regular medical floor. She is currently sitting up at the bedside. Awake and alert in no acute distress. Breathing a bit easier today compared to yesterday. Not quite back to her baseline. Maintaining O2 saturations in the 90s on 3 L/m per nasal cannula. She is afebrile. White count 12.1. Hemoglobin 12.6. Creatinine 0.67. She is continued on DuoNeb inhalations, Pulmicort and Perforomist inhalations, Mucinex, IV Solu-Medrol. Antibiotics in the form of Bactrim. Objective - Vital Signs Vital signs: Vital Signs Temp 97.9 F 03/24/19 05:35 Pulse 80 03/24/19 08:48 Resp 18 03/24/19 05:35 BP 167/89 03/24/19 05:35 Pulse Ox 94 L 03/24/19 08:28 Intake & Output 03/23/19 03/24/19 03/24/19 18:59 06:59 18:59 Intake Total 400 200 Balance 400 200 Weight 64.41 kg Intake: Oral 400 200 Other: Voiding Method Toilet Toilet # Voids 2 1 # Bowel Movements 1 - Exam GENERAL EXAM: Alert, pleasant, 78-year-old female, on 2 L of oxygen, with a pulse ox of 94%, comfortable in no apparent distress. HEAD: Normocephalic/atraumatic. EYES: Normal reaction of pupils, equal size. Conjunctiva pink, sclera white. NOSE: Clear with pink turbinates. THROAT: No erythema or exudates. NECK: No masses, no JVD, no thyroid enlargement, no adenopathy. CHEST: No chest wall deformity. Symmetrical expansion. LUNGS: Equal air entry with scattered wheezes, diminished breath sounds, CVS: Regular rate and rhythm, normal S1 and S2, no gallops, no murmurs, no rubs ABDOMEN: Soft, nontender. No hepatosplenomegaly, normal bowel sounds, no guarding or rigidity. EXTREMITIES: No clubbing, no edema, no cyanosis, 2+ pulses and upper and lower extremities. MUSCULOSKELETAL: Muscle strength and tone normal. SPINE: No scoliosis or deformity SKIN: No rashes CENTRAL NERVOUS SYSTEM: No focal deficits, tone is normal in all 4 extremities. PSYCHIATRIC: Alert and oriented -3. Appropriate affect. Intact judgment and insight. - Labs CBC & Chem 7: 03/24/19 07:42 03/24/19 07:42 Labs: Abnormal Lab Results - Last 24 Hours (Table) 03/23/19 03/23/19 03/24/19 Range/Units 16:35 21:01 07:31 WBC (3.8-10.6) k/uL MCHC (31.0-37.0) g/dL Neutrophils # (1.3-7.7) k/uL BUN (7-17) mg/dL Glucose (74-99) mg/dL POC Glucose (mg/dL) 167 H 195 H 137 H (75-99) mg/dL 03/24/19 03/24/19 Range/Units 07:42 07:42 WBC 12.1 H (3.8-10.6) k/uL MCHC 30.7 L (31.0-37.0) g/dL Neutrophils # 10.5 H (1.3-7.7) k/uL BUN 23 H (7-17) mg/dL Glucose 130 H (74-99) mg/dL POC Glucose (mg/dL) (75-99) mg/dL Assessment and Plan Assessment: Impression: #1. Acute exacerbation of chronic obstructive pulmonary disease, with failure of outpatient treatment, CTA of the chest was negative for any evidence of pulmonary embolism, showed chronic right upper lung cavitary opacity, extensive emphysematous changes, and possibility of mild interstitial prominence, with no other acute pulmonary process #2. History of moderately severe COPD, with baseline FEV1 of 1.28 L or 68% of predicted with decreased diffusion capacity, and this is stage 2 COPD #3. Chronic hypoxemic respiratory failure secondary to the above #4. Remote history of chronic tobacco dependence #5. Osteoarthritis #6. Hypertension #7. Hyperlipidemia #8. History of twin sister with lung cancer Plan: The patient was seen and evaluated by Dr. Barragan. She is improved from the pulmonary standpoint. We'll continue with current treatment plan. Increase her activity as tolerated. Probable discharge in the a.m. We'll continue to follow. I, the cosigning physician, performed a history & physical examination of the patient. Lungs sounds with end expiratory wheeze, diminished. Maintaining good O2 saturations in the 90s on 3 L/m per nasal cannula. I discussed the assessment and plan of care with my nurse practitioner, Malgorzata Dowell. I attest to the above note as dictated by her.
[2019-03-24 11:52] LABS: Glucose,Whole Blood 122 mg/dL (75-99)
--- NOTE | 2019-03-24 12:08 | P.PN ---
Subjective Progress Note Date: 03/23/19 Principal diagnosis: Acute exacerbation of chronic obstructive pulmonary disease 03/23/2019, the patient is feeling better. The review the CAT scan of the chest. The cavitation and erythematous changes in the right upper lobe are residual from a previous pneumonia which are obviously improving. I would doubt this of infection at this point in time. For that reason, suggest continuing the Bactrim. Suggest continuing the bronchodilators and systemic steroids for now. She is doing well and she is improving. No fever. No chills. No hemoptysis. No other complaints otherwise for now. Objective - Vital Signs Vital signs: Vital Signs Temp 97.4 F L 03/23/19 05:56 Pulse 80 03/23/19 10:54 Resp 18 03/23/19 05:56 BP 149/55 03/23/19 05:56 Pulse Ox 94 L 03/23/19 05:56 Intake & Output 03/22/19 03/23/19 03/23/19 18:59 06:59 18:59 Intake Total 200 Balance 200 Weight 64.41 kg Intake: Oral 200 Other: Voiding Method Toilet # Voids 2 - Exam GENERAL EXAM: Alert, pleasant, 78-year-old white female, on 2 L of oxygen, with a pulse ox of 91%, comfortable in no apparent distress. HEAD: Normocephalic/atraumatic. EYES: Normal reaction of pupils, equal size. Conjunctiva pink, sclera white. NOSE: Clear with pink turbinates. THROAT: No erythema or exudates. NECK: No masses, no JVD, no thyroid enlargement, no adenopathy. CHEST: No chest wall deformity. Symmetrical expansion. LUNGS: Equal air entry with scattered wheezes, and rhonchi, diminished breath sounds, CVS: Regular rate and rhythm, normal S1 and S2, no gallops, no murmurs, no rubs ABDOMEN: Soft, nontender. No hepatosplenomegaly, normal bowel sounds, no guarding or rigidity. EXTREMITIES: No clubbing, no edema, no cyanosis, 2+ pulses and upper and lower extremities. MUSCULOSKELETAL: Muscle strength and tone normal. SPINE: No scoliosis or deformity - Labs CBC & Chem 7: 03/24/19 07:42 03/24/19 07:42 Labs: Abnormal Lab Results - Last 24 Hours (Table) 03/22/19 03/22/19 03/23/19 Range/Units 11:05 20:48 06:40 MCHC (31.0-37.0) g/dL Lymphocytes # (1.0-4.8) k/uL Carbon Dioxide 21 L (22-30) mmol/L BUN 21 H (7-17) mg/dL Glucose 154 H (74-99) mg/dL POC Glucose (mg/dL) 196 H 152 H (75-99) mg/dL AST 39 H (14-36) U/L 03/23/19 03/23/19 03/23/19 Range/Units 08:14 08:14 11:19 MCHC 30.2 L (31.0-37.0) g/dL Lymphocytes # 0.8 L (1.0-4.8) k/uL Carbon Dioxide (22-30) mmol/L BUN 19 H (7-17) mg/dL Glucose 237 H (74-99) mg/dL POC Glucose (mg/dL) 108 H (75-99) mg/dL AST (14-36) U/L Assessment and Plan Plan: 1. Acute exacerbation of chronic obstructive pulmonary disease, with failure of outpatient treatment, - CTA just chest was negative for any evidence of pulmonary embolism, showed chronic right upper lung cavitary opacity, extensive emphysematous changes, and possibility of mild interstitial prominence, with no other acute pulmonary process - Pulmonary and seen the patient and recommending to continue IV steroids, nebulized bronchodilators, we'll add Pulmicort and Perforomist, will restart Claritin, we will finish the course of Bactrim. Sputum for culture, chest x-ray and CTA chest showing chronic emphysematous changes, and chronic right upper lung cavitary opacity, not significantly changed from previous radiographic studies. Patient had a bronchoscopy with BAL in December 2018, and brought coarse cytology and cultures were negative. We'll treat the patient for acute exacerbation of COPD. Obtain sputum culture. 2. History of moderately severe COPD, with baseline FEV1 of 1.28 L or 68% of predicted with decreased diffusion capacity, and this is stage 2 COPD 3. Chronic hypoxemic respiratory failure secondary to the above 4. Remote history of chronic tobacco dependence 5. Osteoarthritis 6. Hypertension; continue home dose of Norvasc 5 mg daily; hydrocodone 25 mg daily; Lopressor 12.5 mg twice a day 7. Hyperlipidemia; Lipitor 10 mg by mouth daily at bedtime 8. DVT prophylaxis; subcu Lovenox CODE STATUS; full code Time with Patient: Greater than 30
--- NOTE | 2019-03-24 13:22 | P.PN ---
Subjective Progress Note Date: 03/24/19 Principal diagnosis: Acute exacerbation of chronic obstructive pulmonary disease 03/23/2019, the patient is feeling better. The review the CAT scan of the chest. The cavitation and erythematous changes in the right upper lobe are residual from a previous pneumonia which are obviously improving. I would doubt this of infection at this point in time. For that reason, suggest continuing the Bactrim. Suggest continuing the bronchodilators and systemic steroids for now. She is doing well and she is improving. No fever. No chills. No hemoptysis. No other complaints otherwise for now. 03/24/2019 Patient is seen and evaluated in follow-up on the regular medical floor. She is currently sitting up at the bedside. Awake and alert in no acute distress. Breathing a bit easier today compared to yesterday. Not quite back to her baseline. Maintaining O2 saturations in the 90s on 3 L/m per nasal cannula. She is afebrile with pulse of 79; respiration 18 and blood pressure of 167 with 89; SpO2 of 97% on 3 L. Labs review shows White count 12.1. Hemoglobin 12.6. Creatinine 0.67. She is continued on DuoNeb inhalations, Pulmicort and Perforomist inhalations, Mucinex, IV Solu-Medrol. Antibiotics in the form of Bactrim. Patient has been evaluated by pulmonary and is recommended possible switch to oral steroids and possible discharge in next 24-48 hours if remains stable Objective - Vital Signs Vital signs: Vital Signs Temp 97.9 F 03/24/19 05:35 Pulse 79 03/24/19 11:44 Resp 18 03/24/19 05:35 BP 167/89 03/24/19 05:35 Pulse Ox 94 L 03/24/19 08:28 Intake & Output 03/23/19 03/24/19 03/24/19 18:59 06:59 18:59 Intake Total 400 200 Balance 400 200 Weight 64.41 kg Intake: Oral 400 200 Other: Voiding Method Toilet Toilet # Voids 2 1 # Bowel Movements 1 - Exam GENERAL EXAM: Alert, pleasant, 78-year-old white female, on 2 L of oxygen, with a pulse ox of 91%, comfortable in no apparent distress. HEAD: Normocephalic/atraumatic. EYES: Normal reaction of pupils, equal size. Conjunctiva pink, sclera white. NOSE: Clear with pink turbinates. THROAT: No erythema or exudates. NECK: No masses, no JVD, no thyroid enlargement, no adenopathy. CHEST: No chest wall deformity. Symmetrical expansion. LUNGS: Equal air entry with scattered wheezes, and rhonchi, diminished breath sounds, CVS: Regular rate and rhythm, normal S1 and S2, no gallops, no murmurs, no rubs ABDOMEN: Soft, nontender. No hepatosplenomegaly, normal bowel sounds, no guarding or rigidity. EXTREMITIES: No clubbing, no edema, no cyanosis, 2+ pulses and upper and lower extremities. MUSCULOSKELETAL: Muscle strength and tone normal. SPINE: No scoliosis or deformity - Labs CBC & Chem 7: 03/24/19 07:42 03/24/19 07:42 Labs: Abnormal Lab Results - Last 24 Hours (Table) 03/23/19 03/23/19 03/24/19 Range/Units 16:35 21:01 07:31 WBC (3.8-10.6) k/uL MCHC (31.0-37.0) g/dL Neutrophils # (1.3-7.7) k/uL BUN (7-17) mg/dL Glucose (74-99) mg/dL POC Glucose (mg/dL) 167 H 195 H 137 H (75-99) mg/dL 03/24/19 03/24/19 03/24/19 Range/Units 07:42 07:42 11:50 WBC 12.1 H (3.8-10.6) k/uL MCHC 30.7 L (31.0-37.0) g/dL Neutrophils # 10.5 H (1.3-7.7) k/uL BUN 23 H (7-17) mg/dL Glucose 130 H (74-99) mg/dL POC Glucose (mg/dL) 122 H (75-99) mg/dL Assessment and Plan Plan: 1. Acute exacerbation of chronic obstructive pulmonary disease, with failure of outpatient treatment, - CTA just chest was negative for any evidence of pulmonary embolism, showed chronic right upper lung cavitary opacity, extensive emphysematous changes, and possibility of mild interstitial prominence, with no other acute pulmonary process - Pulmonary and seen the patient and recommending to continue IV steroids, nebulized bronchodilators, we'll add Pulmicort and Perforomist, will restart Claritin, we will finish the course of Bactrim. Sputum for culture, chest x-ray and CTA chest showing chronic emphysematous changes, and chronic right upper lung cavitary opacity, not significantly changed from previous radiographic studies. Patient had a bronchoscopy with BAL in December 2018, and brought coarse cytology and cultures were negative. We'll treat the patient for acute exacerbation of COPD. Obtain sputum culture. 2. History of moderately severe COPD, with baseline FEV1 of 1.28 L or 68% of predicted with decreased diffusion capacity, and this is stage 2 COPD 3. Chronic hypoxemic respiratory failure secondary to the above 4. Remote history of chronic tobacco dependence 5. Osteoarthritis 6. Hypertension; continue home dose of Norvasc 5 mg daily; hydrocodone 25 mg daily; Lopressor 12.5 mg twice a day 7. Hyperlipidemia; Lipitor 10 mg by mouth daily at bedtime 8. DVT prophylaxis; subcu Lovenox CODE STATUS; full code Time with Patient: Greater than 30
[2019-03-24] MEDS: PROMETHAZ-COD 6.25-10 MG/5 ML 5 ML CUP PO PRN (13:51)
[2019-03-24 16:54] LABS: Glucose,Whole Blood 160 mg/dL (75-99)
[2019-03-24 20:33] LABS: Glucose,Whole Blood 185 mg/dL (75-99)
[2019-03-24] MEDS: CHOLECALCIFEROL 1,000 UNIT TAB PO SCH (21:08)
[2019-03-24] MEDS: MELATONIN 3 MG TABLET PO SCH (21:08)
[2019-03-24] MEDS: ATORVASTATIN 10 MG TAB PO SCH (21:08)
[2019-03-25] MEDS: methylPREDNISolone SOD SUCCI 125 MG/2 ML VIAL IV SCH ×2 (05:36→13:50)
[2019-03-25] MEDS: IPRATROPIUM-ALBUTEROL 3 ML NEB INHALATION SCH ×3 (07:04→15:21)
[2019-03-25] MEDS: FORMOTEROL FUMARATE 20 MCG/2 ML NEBU INHALATION SCH (07:04)
[2019-03-25] MEDS: BUDESONIDE 1 MG/2 ML NEBU INHALATION SCH (07:04)
[2019-03-25 07:06] LABS: Glucose,Whole Blood 132 mg/dL (75-99)
[2019-03-25] MEDS: METOPROLOL SUCCINATE (ER) 25 MG TAB.ER.24H PO SCH (08:00)
[2019-03-25] MEDS: LORATADINE 10 MG TAB PO SCH (08:00)
[2019-03-25] MEDS: HYDROCHLOROTHIAZIDE 25 MG TAB PO SCH (08:00)
[2019-03-25] MEDS: SULFAMETHOX-TMP 800-160MG 1 EACH TAB PO SCH (08:01)
[2019-03-25] MEDS: INSULIN ASPART (NovoLOG) 100 UNIT/ML VIAL SQ SCH ×2 (08:01→12:11)
[2019-03-25] MEDS: guaiFENesin 600 MG TABLET.ER PO SCH (08:01)
[2019-03-25] MEDS: amLODIPine 5 MG TAB PO SCH (08:01)
[2019-03-25] MEDS: ENOXAPARIN 40 MG/0.4 ML SYRINGE SQ SCH (08:01)
[2019-03-25 09:33] LABS: Basophils % (A) 0 %; Eosinophils % (A) 0 %; HCT 41.5 % (34.0-46.0); HGB 12.2 gm/dL (11.4-16.0); Hypochromasia Marked; Lymphocytes # (A) 0.7 k/uL (1.0-4.8); Lymphocytes % (A) 6 %; MCH 24.8 pg (25.0-35.0); MCHC 29.3 g/dL (31.0-37.0); MCV 84.8 fL (80.0-100.0); Mean Platelet Volume 7.5; Monocytes # (A) 0.3 k/uL (0-1.0); Monocytes % (A) 3 %; Neutrophils % (A) 89 %; Platelet Count 391 k/uL (150-450); RBC 4.89 m/uL (3.80-5.40); RDW 14.4 % (11.5-15.5); WBC 10.1 k/uL (3.8-10.6)
[2019-03-25 09:42] LABS: African American GFR (CKD) >90 (>60 ml/min/1.73 sqM); Anion Gap 9 mmol/L; Blood Urea Nitrogen 24 mg/dL (7-17); Calcium 8.7 mg/dL (8.4-10.2); Carbon Dioxide 27 mmol/L (22-30); Chloride 100 mmol/L (98-107); Glucose 277 mg/dL (74-99); Potassium 4.2 mmol/L (3.5-5.1); Sodium 136 mmol/L (137-145)
[2019-03-25 12:07] LABS: Glucose,Whole Blood 88 mg/dL (75-99)
[2019-03-25 14:55] VITALS: BP 129/59; PULSE 87; RESP 16; TEMP 97.7
--- NOTE | 2019-03-25 15:37 | P.PN ---
Subjective Progress Note Date: 03/25/19 Principal diagnosis: Acute exacerbation of chronic obstructive pulmonary disease. This is a 78-year-old female patient of Dr. Ariza with past medical history of COPD, chronic hypercapnic respiratory failure, closed with Dr. Sarabia in the pulmonary clinic, and has a baseline FEV1 of 1.28 L or 68% of predicted, and decreased diffusion capacity, who was sent to the emergency department from Dr. Sarabia's office with complaints of shortness of breath, that failed to improve after outpatient treatment for acute COPD exacerbation. Patient has been sick since last weekend, she was treated with Depo-Medrol, IM Rocephin, Medrol Dosepak and Bactrim at the urgent care clinic, she was seen by Dr. Sarabia in follow-up on 03/20/2019 and was not feeling much better. Dr. Sarabia instructed the patient to finish the Bactrim course, increased no oral steroids to prednisone taper starting at 50 mg daily. Patient did not improve, and came in complaining of coughing, wheezing, and bringing up some phlegm. But she denied any fever, chills, pleuritic chest pain, no nausea or vomiting. Chest x-ray was done on 03/20/2019 showing right upper lobe cavitary opacity that was previously seen on previous chest x-rays. CT angios chest was completed showing no evidence pulmonary embolism, persistent small cavitary areas in the right upper lobe with wall thickening, and extensive emphysematous changes with some prominence of interstitium. Labs showed a white blood cell, 6.9, hemoglobin at 13.0, serum sodium was 137, potassium is 4.8, chloride was 104, CO2 is 21, BUN is 21, creatinine 0.74. Troponin was negative 1, proBNP was 344, afebrile, hemodynamically stable, pulse ox is 91% on 2 L. She was started on IV steroids, nebulized bronchodilators, and admitted for further monitoring and management. On today's evaluation of 03/23/2019, the patient is feeling better. The review the CAT scan of the chest. The cavitation and erythematous changes in the right upper lobe are residual from a previous pneumonia which are obviously improving. I would doubt this of infection at this point in time. For that reason, suggest continuing the Bactrim. Suggest continuing the bronchodilators and systemic steroids for now. She is doing well and she is improving. No fever. No chills. No hemoptysis. No other complaints otherwise for now. The patient is seen today 03/24/2019 in follow-up on the regular medical floor. She is currently sitting up at the bedside. Awake and alert in no acute distress. Breathing a bit easier today compared to yesterday. Not quite back to her baseline. Maintaining O2 saturations in the 90s on 3 L/m per nasal cannula. She is afebrile. White count 12.1. Hemoglobin 12.6. Creatinine 0.67. She is continued on DuoNeb inhalations, Pulmicort and Perforomist inhalations, Mucinex, IV Solu-Medrol. Antibiotics in the form of Bactrim. The patient is seen today 03/25/2019 in follow-up on the regular medical floor. Awake and alert in no acute distress. Maintaining good O2 saturations in the 90s on 2 L/m per nasal cannula. She's been afebrile. Hemodynamically stable. Today's visit the dry nonproductive cough. Sputum culture pending. White count 10.1. Hemoglobin 12.2. Creatinine 0.62. She has been maintained on DuoNeb inhalations, Pulmicort and Perforomist inhalations, IV Solu-Medrol. T-max in the form of Bactrim. She remains on Phenergan, Claritin, Mucinex Objective - Vital Signs Vital signs: Vital Signs Temp 97.7 F 03/25/19 12:59 Pulse 87 03/25/19 12:59 Resp 16 03/25/19 12:59 BP 129/59 03/25/19 12:59 Pulse Ox 93 L 03/25/19 05:42 Intake & Output 03/24/19 03/25/19 03/25/19 18:59 06:59 18:59 Intake Total 1250 900 Balance 1250 900 Intake: Oral 1250 900 Other: Voiding Method Toilet # Voids 2 2 3 # Bowel Movements 1 - Exam GENERAL EXAM: Alert, pleasant, 78-year-old female, on 2 L of oxygen, with a pulse ox of 94%, comfortable in no apparent distress. HEAD: Normocephalic/atraumatic. EYES: Normal reaction of pupils, equal size. Conjunctiva pink, sclera white. NOSE: Clear with pink turbinates. THROAT: No erythema or exudates. NECK: No masses, no JVD, no thyroid enlargement, no adenopathy. CHEST: No chest wall deformity. Symmetrical expansion. LUNGS: Equal air entry with scattered wheezes, diminished breath sounds, CVS: Regular rate and rhythm, normal S1 and S2, no gallops, no murmurs, no rubs ABDOMEN: Soft, nontender. No hepatosplenomegaly, normal bowel sounds, no guarding or rigidity. EXTREMITIES: No clubbing, no edema, no cyanosis, 2+ pulses and upper and lower extremities. MUSCULOSKELETAL: Muscle strength and tone normal. SPINE: No scoliosis or deformity SKIN: No rashes CENTRAL NERVOUS SYSTEM: No focal deficits, tone is normal in all 4 extremities. PSYCHIATRIC: Alert and oriented -3. Appropriate affect. Intact judgment and insight. - Labs CBC & Chem 7: 03/25/19 08:49 03/25/19 08:49 Labs: Abnormal Lab Results - Last 24 Hours (Table) 03/24/19 03/24/19 03/25/19 Range/Units 16:52 20:31 07:02 MCH (25.0-35.0) pg MCHC (31.0-37.0) g/dL Neutrophils # (1.3-7.7) k/uL Lymphocytes # (1.0-4.8) k/uL Sodium (137-145) mmol/L BUN (7-17) mg/dL Glucose (74-99) mg/dL POC Glucose (mg/dL) 160 H 185 H 132 H (75-99) mg/dL 03/25/19 03/25/19 Range/Units 08:49 08:49 MCH 24.8 L (25.0-35.0) pg MCHC 29.3 L (31.0-37.0) g/dL Neutrophils # 9.0 H (1.3-7.7) k/uL Lymphocytes # 0.7 L (1.0-4.8) k/uL Sodium 136 L (137-145) mmol/L BUN 24 H (7-17) mg/dL Glucose 277 H (74-99) mg/dL POC Glucose (mg/dL) (75-99) mg/dL Microbiology - Last 24 Hours (Table) 03/24/19 08:47 Gram Stain - Preliminary Sputum Sputum Culture - Preliminary Assessment and Plan Assessment: Impression: #1. Acute exacerbation of chronic obstructive pulmonary disease, with failure of outpatient treatment, CTA of the chest was negative for any evidence of pulmonary embolism, showed chronic right upper lung cavitary opacity, extensive emphysematous changes, and possibility of mild interstitial prominence, with no other acute pulmonary process #2. History of moderately severe COPD, with baseline FEV1 of 1.28 L or 68% of predicted with decreased diffusion capacity, and this is stage II COPD #3. Chronic hypoxemic respiratory failure secondary to the above #4. Remote history of chronic tobacco dependence #5. Osteoarthritis #6. Hypertension #7. Hyperlipidemia #8. History of twin sister with lung cancer Plan: The patient was seen and evaluated by Dr. Fowler. She is improved from the p ulmonary standpoint. Upon discharge she'll complete a prednisone burst and taper. Complete course of antibiotics. Continue her home pulmonary medications. Follow-up in our office in 1-2 weeks' time. She is encouraged to call sooner with any recurrence of symptoms or other questions or concerns. I, the cosigning physician, performed a history & physical examination of the patient. Lungs sounds with end expiratory wheeze, diminished. Maintaining good O2 saturations in the 90s on 2 L/m per nasal cannula. I discussed the assessment and plan of care with my nurse practitioner, Malgorzata Dowell. I attest to the above note as dictated by her.
--- NOTE | 2019-03-26 06:22 | DS ---
DISCHARGE SUMMARY FINAL DIAGNOSES: 1. Chronic obstructive pulmonary disease acute exacerbation with acute purulent tracheobronchitis with failure of outpatient treatment. 2. History of moderate to severe chronic obstructive pulmonary disease with FEV1 of 1.28, 68% predicted. 3. Chronic hypoxic respiratory failure on home O2. 4. Remote history of nicotine dependence. 5. Degenerative joint disease. 6. Hypertension. 7. Hyperlipidemia. DISCHARGE DISPOSITION: The patient will be discharged in stable condition with guarded prognosis. HISTORY OF PRESENT ILLNESS: This 78-year-old woman with a past medical history of multiple medical problems being followed by Dr. Neptali Ariza in the outpatient setting was admitted with COPD acute exacerbation as well as purulent tracheobronchitis. Patient was treated in conjunction with Dr. Fowler and Dr. Barragan. Patient improved significantly. On exam, vitals are stable. CARDIOVASCULAR: S1, S2 muffled. RESPIRATORY: A few scattered rhonchi and crackles. ABDOMEN: Soft. NERVOUS SYSTEM: No focal deficits. DISCHARGE ADVICE: 1. Diet is cardiac. 2. Activity limited until followup. 3. Follow up with Dr. Neptali Ariza 2 to 3 days. 4. Follow up with Dr. Sarabia as recommended. Medications are as follows: 1. Claritin 10 mg daily. 2. DuoNeb q.i.d. and p.r.n. 3. HydroDIURIL 25 mg p.o. daily. 4. Lipitor 10 mg q.h.s. 5. Norvasc 5 mg p.o. daily. 6. Symbicort 160/4.5 two puffs b.i.d. 7. Toprol XL 12.5 mg daily. 8. Ventolin 2 puffs q.6 p.r.n. 9. Vitamin D3, 2000 q.h.s. 10.Bactrim DS 1 p.o. b.i.d. for 3 days. 11.Mucinex 1200 mg p.o. b.i.d. 12.Prednisone taper 40 mg p.o. daily for 3 days, 30 for 3 days, 20 for 3 days and then 10 for 3 days. Once again, the patient will be discharged in a stable condition with guarded prognosis. MMODL / IJN: [id number] /
== END 2019-03-25 16:00 | disposition home or self-care (01) | DRG 191 ==
LOC: EC 10:36 → 4MS4W 12:52
PROVIDERS: ADMIT Internal Medicine; ATTEND Internal Medicine
DX: J43.9 Emphysema, unspecified (principal); J96.11 Chronic respiratory failure with hypoxia; J96.12 Chronic respiratory failure with hypercapnia; E78.5 Hyperlipidemia, unspecified; I10 Essential (primary) hypertension; J20.9 Acute bronchitis, unspecified; M19.90 Unspecified osteoarthritis, unspecified site; Z79.51 Long term (current) use of inhaled steroids; Z79.899 Other long term (current) drug therapy; Z80.1 Family history of malignant neoplasm of trachea, bronchus and lung; Z82.49 Family history of ischemic heart disease and other diseases of the circulatory system; Z87.01 Personal history of pneumonia (recurrent); Z87.891 Personal history of nicotine dependence; Z99.81 Dependence on supplemental oxygen; Z88.1 Allergy status to other antibiotic agents; Z88.8 Allergy status to other drugs, medicaments and biological substances; G89.29 Other chronic pain; Z90.49 Acquired absence of other specified parts of digestive tract
CPT/HCPCS: 36415; 71275; 80048; 80053; 83735; 83880; 84484; 85025; 85610; 85730; 87070; 87205; 93005; 94640; 94760; 96361; 96374; 99285

== ENCOUNTER → 2019-03-27 | Outpatient (CLI) | payer MEDICARE ==
[2019-03-27 14:48] LABS: Basophils # (A) 0.1 k/uL (0-0.2); Basophils % (A) 1 %; Eosinophils % (A) 0 %; HCT 42.7 % (34.0-46.0); HGB 13.2 gm/dL (11.4-16.0); Lymphocytes # (A) 0.7 k/uL (1.0-4.8); Lymphocytes % (A) 6 %; MCH 26.2 pg (25.0-35.0); MCHC 30.9 g/dL (31.0-37.0); Mean Platelet Volume 7.1; Monocytes # (A) 0.4 k/uL (0-1.0); Monocytes % (A) 4 %; Neutrophils # (A) 9.9 k/uL (1.3-7.7); Neutrophils % (A) 89 %; Platelet Count 420 k/uL (150-450); RBC 5.02 m/uL (3.80-5.40); RDW 15.3 % (11.5-15.5); WBC 11.2 k/uL (3.8-10.6)
[2019-03-27 19:28] LABS: African American GFR (CKD) 71.5 (60.0-200.0); Anion Gap 10.7 mmol/L (4.00-12.00); BUN/Creat Ratio 31.11 Ratio (12.00-20.00); Calcium 9.4 mg/dL (8.7-10.3); Carbon Dioxide 27.3 mmol/L (21.6-31.8); Potassium 4.8 mmol/L (3.5-5.5)
== END | disposition home or self-care (01) ==
LOC: LABWHC1 13:42
PROVIDERS: ATTEND Hospitalist
DX: J44.9 Chronic obstructive pulmonary disease, unspecified (principal)
CPT/HCPCS: 36415; 80048; 85025

== ENCOUNTER → 2019-04-08 | Outpatient (CLI) | payer MEDICARE ==
--- NOTE | 2019-04-09 09:14 | MM ---
Reason for exam: screening (asymptomatic). Last mammogram was performed 1 year and 2 months ago. History: Patient is postmenopausal. Benign excisional biopsy of the left breast, 1958. Physical Findings: A clinical breast exam by your physician is recommended on an annual basis and results should be correlated with mammographic findings. MG 3D Screening Mammo W/Cad Bilateral CC and MLO view(s) were taken. Prior study comparison: January 31, 2018, bilateral MG 3d screening mammo w/cad. May 05, 2016, bilateral MG 3d screening mammo w/cad. The breast tissue is heterogeneously dense. This may lower the sensitivity of mammography. Benign appearing bilateral calcifications. No significant changes when compared with prior studies. ASSESSMENT: Benign, BI-RAD 2 RECOMMENDATION: Routine screening mammogram of both breasts in 1 year.
== END | disposition home or self-care (01) ==
LOC: RADMAMWWP 10:57
PROVIDERS: ATTEND Family Medicine
DX: Z12.31 Encounter for screening mammogram for malignant neoplasm of breast (principal)
CPT/HCPCS: 77063; 77067

== ENCOUNTER 2019-04-17 09:55 | Day surgery (SDC) | payer MEDICARE ==
[2019-04-08 15:06] VITALS: BMI 25.7
[~2019-04-17 09:55] MED LIST changes: -DEXAMETHASONE SOD PHOSPHATE 10 MG/ML 1 ML VIAL IV ONE; +LIDOCAINE 1% 20 ML VIAL (10MG/ML) FOR IV START INTRADERMA PRN; -MIDAZOLAM (PF) 2 MG/2 ML VIAL IV PRN; -ONDANSETRON 4 MG/2 ML VIAL IVP ONE; -ceFAZolin IN SWFI 2 GM/20 ML SYRINGE IVP ONE; -fentaNYL (PF) 50 MCG/ML 2 ML AMP IV PRN
[2019-04-17 11:23] VITALS: TEMP 96.9
[2019-04-17] MEDS ORDERED: PROPOFOL 10 MG/ML 20 ML VIAL IV ONE (11:35)
--- NOTE | 2019-04-17 11:37 | P.GSHP ---
History of Present Illness H&P Date: 04/17/19 Chief Complaint: Rectal bleeding 78-year-old female was recently having rectal bleeding. History of previous adenomatous polyps. Last colonoscopy 5 years ago. Patient had laparoscopic sigmoid colectomy performed 4-5 years ago for diverticulitis. Past Medical History Past Medical History: Asthma, COPD, Hyperlipidemia, Hypertension, Osteoarthritis (OA), Pneumonia, Respiratory Disorder Additional Past Medical History / Comment(s): chronic hypoxic respiratory failure, home oxygen at 2L/NC ATC, chronic sinus drainage chronic low back pain, herniated lumbar discs, left sided sciatica, diverticulitis, urinary leakage, recent rectal bldg. now resolved History of Any Multi-Drug Resistant Organisms: None Reported Past Surgical History: Appendectomy, Bowel Resection, Cholecystectomy, Heart Catheterization, Orthopedic Surgery, Tubal Ligation Additional Past Surgical History / Comment(s): Bronchoscopies/lavages, bowel resection due to diverticulitis 2012, bilat knee arthroscopy, sinus surgery twice, carpal tunnel left wrist, colonoscopy, back injections, ORIF left wrist w/pins removed Past Anesthesia/Blood Transfusion Reactions: No Reported Reaction Additional Past Anesthesia/Blood Transfusion Reaction / Comment(s): has never received blood Smoking Status: Former smoker - Past Family History Mother Family Medical History: Myocardial Infarction (AR) Additional Family Medical History / Comment(s): Mother of AR at age 65 yrs. Sister(s) Family Medical History: Cancer Additional Family Medical History / Comment(s): Twin sister had LUNG cancer. Father Family Medical History: Cancer Additional Family Medical History / Comment(s): Father had cancer in his neck. Medications and Allergies Home Medications Medication Instructions Recorded Confirmed Type Cholecalciferol (Vitamin D3) 2,000 unit PO HS 09/25/17 04/08/19 History [Vitamin D3] Metoprolol Succinate [Toprol XL] 12.5 mg PO DAILY 09/25/17 04/17/19 History amLODIPine [Norvasc] 5 mg PO DAILY 09/25/17 04/17/19 History Albuterol Inhaler [Ventolin Hfa 2 puff INHALATION RT-Q6H PRN 02/09/18 04/08/19 History Inhaler] Budesonide-Formot 160-4.5 Mcg 2 puff INHALATION RT-BID 02/09/18 04/08/19 History [Symbicort 160-4.5 Mcg Inhaler] Atorvastatin [Lipitor] 10 mg PO HS 09/29/18 04/08/19 History Hydrochlorothiazide [Hydrodiuril] 25 mg PO DAILY 02/09/19 04/08/19 History Ipratropium-Albuterol Nebulize 3 ml INHALATION RT-QID 03/22/19 04/08/19 History [Duoneb 0.5 mg-3 mg/3 ml Soln] guaiFENesin [Mucinex] 1,200 mg PO Q12HR #60 tablet.er 03/25/19 04/08/19 Rx Budesonide [Rhinocort Allergy] 1 spr EA NOSTRIL DAILY 04/08/19 04/08/19 History Cetirizine HCl [Zyrtec] 10 mg PO DAILY 04/08/19 04/08/19 History Allergies Allergy/AdvReac Type Severity Reaction Status Date / Time amoxicillin [From Augmentin] Allergy Unknown Verified 04/17/19 11:15 clavulanic acid Allergy Unknown Verified 04/17/19 11:15 [From Augmentin] levofloxacin [From Levaquin] Allergy Unknown Verified 04/17/19 11:15 losartan Allergy Unknown Verified 04/17/19 11:15 moxifloxacin HCl Allergy Rash/Hives, Verified 04/17/19 11:15 [From Avelox] SWELLING nitrofurantoin Allergy Rash/Hives Verified 04/17/19 11:15 hydrocodone bitartrate AdvReac Nausea & Verified 04/17/19 11:15 [From Lortab] Vomiting simvastatin AdvReac muscle pain Verified 04/17/19 11:15 Gxzqzev-Llp-Qee Reductase AdvReac MUSCLE PAIN Verified 04/17/19 11:15 Inhibitor Surgical - Exam Vital Signs Temp Pulse Resp BP Pulse Ox 96.9 F L 84 16 176/75 96 04/17/19 11:19 04/17/19 11:19 04/17/19 11:19 04/17/19 11:19 04/17/19 11:19 Physical exam: General: Well-developed, well-nourished HEENT: Normocephalic, sclerae nonicteric Abdomen: Nontender, nondistended Extremities: No edema Neuro: Alert and oriented Assessment and Plan (1) Rectal bleeding Narrative/Plan: Will proceed with colonoscopy at this time Current Visit: No Status: Acute Code(s): K62.5 - HEMORRHAGE OF ANUS AND RECTUM SNOMED Code(s): 57440618
--- NOTE | 2019-04-17 12:04 | P.PCN ---
Date of Procedure: 04/17/19 Procedure(s) Performed: PREOPERATIVE DIAGNOSIS: Rectal bleeding POSTOPERATIVE DIAGNOSIS: Multiple colonic polyps, diverticulosis PROCEDURE: Colonoscopy with snare polypectomy ANESTHESIA: MAC SURGEON: Mumtaz Marroquin M.D. SPECIMENS: Polyps ENDOSCOPIC PROCEDURE: The patient was placed on the endoscopy table in the left decubitus position. The Olympus colonoscope was inserted into the anus and passed under direct visualization to the base of the cecum. The appendiceal orifice was visualized. From that point the scope was slowly withdrawn inspecting all surfaces carefully. There were no neoplastic inflammatory or polypoid lesions throughout the cecum. In the ascending colon there were 3 polyps identified removed using the snare with cautery technique. Another small polyp was removed in a similar fashion on the transverse colon and another small polyp was removed in a similar fashion in the descending colon. The patient sigmoid had been surgically removed in the past. The rectum was normal. The anastomosis was widely patent. There was mild scattered diverticulosis. Digital rectal examination revealed small hemorrhoids without evidence of recent or active bleeding. The patient was taken to the recovery room in stable condition per anesthesia guidelines. RECOMMENDATIONS: Await biopsy results. Follow-up colonoscopy 5 years.
[2019-04-17 12:33] VITALS: BP 162/82; PULSE 74; RESP 18
== END 2019-04-17 12:57 | disposition home or self-care (01) ==
LOC: ORWHC2ENDO 09:55
PROVIDERS: ATTEND Surgery
DX: D12.2 Benign neoplasm of ascending colon (principal); D12.4 Benign neoplasm of descending colon; D12.3 Benign neoplasm of transverse colon; Z86.010 Personal history of colon polyps; K57.30 Diverticulosis of large intestine without perforation or abscess without bleeding; M51.26 Other intervertebral disc displacement, lumbar region; J44.9 Chronic obstructive pulmonary disease, unspecified; E78.5 Hyperlipidemia, unspecified; I10 Essential (primary) hypertension; M19.90 Unspecified osteoarthritis, unspecified site; J96.11 Chronic respiratory failure with hypoxia; Z99.81 Dependence on supplemental oxygen; Z98.51 Tubal ligation status; Z87.891 Personal history of nicotine dependence; Z79.51 Long term (current) use of inhaled steroids; Z79.899 Other long term (current) drug therapy; Z88.1 Allergy status to other antibiotic agents; Z88.5 Allergy status to narcotic agent; Z88.8 Allergy status to other drugs, medicaments and biological substances; Z90.49 Acquired absence of other specified parts of digestive tract; Z82.49 Family history of ischemic heart disease and other diseases of the circulatory system; Z80.1 Family history of malignant neoplasm of trachea, bronchus and lung; Z80.8 Family history of malignant neoplasm of other organs or systems
CPT/HCPCS: 88305; 45385; J2704

== ENCOUNTER 2019-05-13 06:50 | Observation (INO) | payer MEDICARE ==
[2019-05-13] MEDS ORDERED: SODIUM CHLORIDE 0.9% 500 ML 500 ML IV STA (07:31)
[2019-05-13] MEDS ORDERED: NITROGLYCERIN OINT 1 INCH/GM PACKET TOPICAL STA (07:31)
[2019-05-13] MEDS ORDERED: ASPIRIN 81 MG PO STA (07:31)
[2019-05-13] MEDS ORDERED: ACETAMINOPHEN TAB 500 MG TAB PO STA (07:32)
[2019-05-13 07:43] LABS: Anisocytosis Slight; Basophils # (A) 0.1 k/uL (0-0.2); Basophils % (A) 1 %; Eosinophils # (A) 0.2 k/uL (0-0.7); Eosinophils % (A) 3 %; HGB 13.5 gm/dL (11.4-16.0); Lymphocytes # (A) 0.9 k/uL (1.0-4.8); Lymphocytes % (A) 12 %; MCH 26.2 pg (25.0-35.0); MCHC 32.2 g/dL (31.0-37.0); MCV 81.4 fL (80.0-100.0); Mean Platelet Volume 6.8; Microcytosis Slight; Monocytes # (A) 0.4 k/uL (0-1.0); Monocytes % (A) 6 %; Neutrophils # (A) 5.6 k/uL (1.3-7.7); Neutrophils % (A) 76 %; Platelet Count 247 k/uL (150-450); RBC 5.16 m/uL (3.80-5.40); RDW 18.2 % (11.5-15.5); WBC 7.4 k/uL (3.8-10.6)
--- NOTE | 2019-05-13 07:45 | ED ---
General Adult HPI - General Chief complaint: Chest Pain Stated complaint: Chest pain, lt arm pain Time Seen by Provider: 05/13/19 07:00 Source: patient, RN notes reviewed Mode of arrival: wheelchair Limitations: no limitations - History of Present Illness Initial comments: This is a 78-year-old female with past medical history significant for high blood pressure and high cholesterol. Patient also has a 30 year smoking history but she did quit 21 years ago. Patient states she woke up at 1:00 this morning with chest pain that radiated down to her arm and up the left side of her neck. Patient states she's been constant since. Patient did note that she had a fever yesterday of 101. Patient states she started coughing much more this cherry dipper than she did last night. Patient denies any headache patient denies numbness weakness per patient denies lightheadedness or dizziness. Patient states she is coughing but does not have any sputum production. Patient denies any diaphoretic episodes. Patient denies any nausea vomiting. Patient denies any abdominal pain patient denies nausea or diarrhea. Patient denies being short of breath. Patient denies any swelling to her legs or calf tenderness. Patient denies any heart history. Patient denies diabetes. - Related Data Home Medications Medication Instructions Recorded Confirmed Metoprolol Succinate [Toprol XL] 12.5 mg PO DAILY 09/25/17 05/13/19 amLODIPine [Norvasc] 5 mg PO DAILY 09/25/17 05/13/19 Albuterol Inhaler [Ventolin Hfa 2 puff INHALATION RT-Q6H PRN 02/09/18 05/13/19 Inhaler] Budesonide-Formot 160-4.5 Mcg 2 puff INHALATION RT-BID 02/09/18 05/13/19 [Symbicort 160-4.5 Mcg Inhaler] Atorvastatin [Lipitor] 10 mg PO HS 09/29/18 05/13/19 Ipratropium-Albuterol Nebulize 3 ml INHALATION RT-QID 03/22/19 05/13/19 [Duoneb 0.5 mg-3 mg/3 ml Soln] Cetirizine HCl [Zyrtec] 10 mg PO HS 04/08/19 05/13/19 Ergocalciferol (Vitamin D2) 50,000 unit PO QMONTH 05/13/19 05/13/19 [Drisdol] Allergies Allergy/AdvReac Type Severity Reaction Status Date / Time amoxicillin [From Augmentin] Allergy Unknown Verified 05/13/19 07:42 clavulanic acid Allergy Unknown Verified 05/13/19 07:42 [From Augmentin] levofloxacin [From Levaquin] Allergy Unknown Verified 05/13/19 07:42 losartan Allergy Unknown Verified 05/13/19 07:42 moxifloxacin HCl Allergy Rash/Hives, Verified 05/13/19 07:42 [From Avelox] SWELLING nitrofurantoin Allergy Rash/Hives Verified 05/13/19 07:42 hydrocodone bitartrate AdvReac Nausea & Verified 05/13/19 07:42 [From Lortab] Vomiting simvastatin AdvReac muscle pain Verified 05/13/19 07:42 Otxqnqq-Hci-Muh Reductase AdvReac MUSCLE PAIN Verified 05/13/19 07:42 Inhibitor Review of Systems ROS Statement: Those systems with pertinent positive or pertinent negative responses have been documented in the HPI. ROS Other: All systems not noted in ROS Statement are negative. Past Medical History Past Medical History: Asthma, COPD, Hyperlipidemia, Hypertension, Osteoarthritis (OA), Pneumonia, Respiratory Disorder Additional Past Medical History / Comment(s): COPD with bullous changes in the upper lobes bilaterally, chronic hypoxic respiratory failure, home oxygen at 2L/NC ATC, lt arm fx 11/29/18, arthritis in multiple joints, chronic low back pain, herniated lumbar discs, left sided sciatica, diverticulitis, urinary leakage. History of Any Multi-Drug Resistant Organisms: None Reported Past Surgical History: Appendectomy, Bowel Resection, Cholecystectomy, Heart Catheterization, Orthopedic Surgery, Tubal Ligation Additional Past Surgical History / Comment(s): Bronchoscopies/lavages, bowel resection due to diverticulitis 2012, bilat knee arthroscopy, sinus surgery twice, carpal tunnel left wrist, colonoscopy, back injections, left wrist frature with pins placed 12-07-2018 and since removed. Past Anesthesia/Blood Transfusion Reactions: No Reported Reaction Additional Past Anesthesia/Blood Transfusion Reaction / Comment(s): has never received blood Past Psychological History: Anxiety Smoking Status: Former smoker Past Alcohol Use History: None Reported Past Drug Use History: None Reported - Past Family History Mother Family Medical History: Myocardial Infarction ([place]) Additional Family Medical History / Comment(s): Mother of [place] at age 65 yrs. Sister(s) Family Medical History: Cancer Additional Family Medical History / Comment(s): Twin sister had LUNG cancer. Father Family Medical History: Cancer Additional Family Medical History / Comment(s): Father had cancer in his neck. General Exam - General Exam Comments Initial Comments: GENERAL: Patient is well-developed and well-nourished. Patient is nontoxic and well- hydrated and is in mild distress. ENT: Neck is soft and supple. No significant lymphadenopathy is noted. Oropharynx is clear. Moist mucous membranes. Neck has full range of motion without eliciting any pain. EYES: The sclera were anicteric and conjunctiva were pink and moist. Extraocular movements were intact and pupils were equal round and reactive to light. Eyelids were unremarkable. PULMONARY: Unlabored respirations. Good breath sounds bilaterally. No audible rales rhonchi or wheezing was noted. CARDIOVASCULAR: There is a regular rate and rhythm without any murmurs gallops or rubs. ABDOMEN: Soft and nontender with normal bowel sounds. SKIN: Skin is clear with no lesions or rashes and otherwise unremarkable. NEUROLOGIC: Patient is alert and oriented x3. Cranial nerves II through XII are grossly intact. Motor and sensory are also intact. Normal speech, volume and content. Symmetrical smile. MUSCULOSKELETAL: Normal extremities with adequate strength and full range of motion. LYMPHATICS: No significant lymphadenopathy is noted PSYCHIATRIC: Normal psychiatric evaluation. Limitations: no limitations Course Vital Signs 05/13/19 05/13/19 06:52 07:47 Temperature 98.1 F 100.1 F H Pulse Rate 86 Respiratory 24 Rate Blood Pressure 167/74 O2 Sat by Pulse 95 Oximetry Medical Decision Making - Medical Decision Making EKG shows normal sinus rhythm at 84 bpm MD interval is on a 56 QRS is 94 QT interval 354 QTC is 418. Patient's EKG shows no ST segment elevation or depression. No T-wave abnormalities are noted. Chest x-ray showed no acute abnormality. I will back into the room and reevaluated the patient she stated that the Nitropaste seem to take away her pain mostly. Patient states she still has a little residual pain but was considerably better after the Nitropaste. I spoke with Dr. Devi agreed to admit the patient admitted the patient I wrote admitting orders. I started heparin in the emergency department I continue the heparin and aspirin and Nitropaste on the floor. I consult to cardiology. - Lab Data Result diagrams: 05/13/19 07:05 05/13/19 07:05 Lab Results 05/13/19 05/13/19 05/13/19 Range/Units 07:05 07:05 07:05 WBC 7.4 (3.8-10.6) k/uL RBC 5.16 (3.80-5.40) m/uL Hgb 13.5 (11.4-16.0) gm/dL Hct 42.0 (34.0-46.0) % MCV 81.4 (80.0-100.0) fL MCH 26.2 (25.0-35.0) pg MCHC 32.2 (31.0-37.0) g/dL RDW 18.2 H (11.5-15.5) % Plt Count 247 (150-450) k/uL Neutrophils % 76 % Lymphocytes % 12 % Monocytes % 6 % Eosinophils % 3 % Basophils % 1 % Neutrophils # 5.6 (1.3-7.7) k/uL Lymphocytes # 0.9 L (1.0-4.8) k/uL Monocytes # 0.4 (0-1.0) k/uL Eosinophils # 0.2 (0-0.7) k/uL Basophils # 0.1 (0-0.2) k/uL Anisocytosis Slight Microcytosis Slight PT 9.6 (9.0-12.0) sec INR 0.9 (<1.2) APTT 22.9 (22.0-30.0) sec Sodium 140 (137-145) mmol/L Potassium 3.3 L (3.5-5.1) mmol/L Chloride 100 (98-107) mmol/L Carbon Dioxide 31 H (22-30) mmol/L Anion Gap 9 mmol/L BUN 10 (7-17) mg/dL Creatinine 0.57 (0.52-1.04) mg/dL Est GFR (CKD-EPI)AfAm >90 (>60 ml/min/1.73 sqM) Est GFR (CKD-EPI)NonAf 90 (>60 ml/min/1.73 sqM) Glucose 87 (74-99) mg/dL Plasma Lactic Acid Carlos (0.7-2.0) mmol/L Calcium 9.4 (8.4-10.2) mg/dL Magnesium 2.1 (1.6-2.3) mg/dL Total Bilirubin 0.9 (0.2-1.3) mg/dL AST 28 (14-36) U/L ALT 41 (9-52) U/L Alkaline Phosphatase 77 (38-126) U/L Troponin I (0.000-0.034) ng/mL Total Protein 7.0 (6.3-8.2) g/dL Albumin 4.0 (3.5-5.0) g/dL Urine Color Urine Appearance (Clear) Urine pH (5.0-8.0) Ur Specific [place] (1.001-1.035) Urine Protein (Negative) Urine Glucose (UA) (Negative) Urine Ketones (Negative) Urine Blood (Negative) Urine Nitrite (Negative) Urine Bilirubin (Negative) Urine Urobilinogen (<2.0) mg/dL Ur Leukocyte Esterase (Negative) 05/13/19 05/13/19 05/13/19 Range/Units 07:05 07:53 07:53 WBC (3.8-10.6) k/uL RBC (3.80-5.40) m/uL Hgb (11.4-16.0) gm/dL Hct (34.0-46.0) % MCV (80.0-100.0) fL MCH (25.0-35.0) pg MCHC (31.0-37.0) g/dL RDW (11.5-15.5) % Plt Count (150-450) k/uL Neutrophils % % Lymphocytes % % Monocytes % % Eosinophils % % Basophils % % Neutrophils # (1.3-7.7) k/uL Lymphocytes # (1.0-4.8) k/uL Monocytes # (0-1.0) k/uL Eosinophils # (0-0.7) k/uL Basophils # (0-0.2) k/uL Anisocytosis Microcytosis PT (9.0-12.0) sec INR (<1.2) APTT (22.0-30.0) sec Sodium (137-145) mmol/L Potassium (3.5-5.1) mmol/L Chloride (98-107) mmol/L Carbon Dioxide (22-30) mmol/L Anion Gap mmol/L BUN (7-17) mg/dL Creatinine (0.52-1.04) mg/dL Est GFR (CKD-EPI)AfAm (>60 ml/min/1.73 sqM) Est GFR (CKD-EPI)NonAf (>60 ml/min/1.73 sqM) Glucose (74-99) mg/dL Plasma Lactic Acid Carlos 1.2 (0.7-2.0) mmol/L Calcium (8.4-10.2) mg/dL Magnesium (1.6-2.3) mg/dL Total Bilirubin (0.2-1.3) mg/dL AST (14-36) U/L ALT (9-52) U/L Alkaline Phosphatase (38-126) U/L Troponin I <0.012 (0.000-0.034) ng/mL Total Protein (6.3-8.2) g/dL Albumin (3.5-5.0) g/dL Urine Color Yellow Urine Appearance Clear (Clear) Urine pH 6.5 (5.0-8.0) Ur Specific [place] 1.014 (1.001-1.035) Urine Protein Trace H (Negative) Urine Glucose (UA) Negative (Negative) Urine Ketones Negative (Negative) Urine Blood Negative (Negative) Urine Nitrite Negative (Negative) Urine Bilirubin Negative (Negative) Urine Urobilinogen <2.0 (<2.0) mg/dL Ur Leukocyte Esterase Negative (Negative) Critical Care Time Critical Care Time: Yes Total Critical Care Time: 35 Disposition Clinical Impression: Unstable angina pectoris, Fever Disposition: ADMITTED IP TO THIS [facility] Referrals: Neptali Ariza DO [Primary Care Provider] - 1-2 days Time of Disposition: 08:57
[2019-05-13 07:52] LABS: ALT 41 U/L (9-52); AST 28 U/L (14-36); African American GFR (CKD) >90 (>60 ml/min/1.73 sqM); Alkaline Phosphatase 77 U/L (38-126); Anion Gap 9 mmol/L; Blood Urea Nitrogen 10 mg/dL (7-17); Calcium 9.4 mg/dL (8.4-10.2); Carbon Dioxide 31 mmol/L (22-30); Chloride 100 mmol/L (98-107); Glucose 87 mg/dL (74-99); Magnesium 2.1 mg/dL (1.6-2.3); Potassium 3.3 mmol/L (3.5-5.1); Sodium 140 mmol/L (137-145); Total Bilirubin 0.9 mg/dL (0.2-1.3)
[2019-05-13 07:55] LABS: INR 0.9 (<1.2); Partial Thromboplastin Time 22.9 sec (22.0-30.0); Prothrombin Time 9.6 sec (9.0-12.0)
[2019-05-13 08:13] LABS: Appearance,Urine Clear (Clear); Bilirubin,Urine Negative (Negative); Blood,Urine Negative (Negative); Color,Urine Yellow; Glucose,Urine (UA) Negative (Negative); Ketones,Urine Negative (Negative); Leukocyte Esterase,Urine Negative (Negative); Nitrite,Urine Negative (Negative); PH, Urine 6.5 (5.0-8.0); Protein,Urine Trace (Negative); Specific Gravity,Urine 1.014 (1.001-1.035); Urobilinogen,Urine <2.0 mg/dL (<2.0)
--- NOTE | 2019-05-13 08:30 | XR ---
EXAMINATION TYPE: XR chest 2V DATE OF EXAM: 05/13/2019 COMPARISON: CT chest March 22, 2019. Most recent chest x-ray March 20, 2019 HISTORY: Chest pain going into left arm. TECHNIQUE: Frontal and lateral views of the chest are obtained. FINDINGS: There is background chronic emphysematous and parenchymal changes with right apical modera te to severe pleural/parenchymal scarring but no new suspicious focal air space opacity, pleural effu ronny, or pneumothorax seen. The cardiac silhouette size is stable and upper limits of normal with at herosclerotic thoracic aorta. The osseous structures are intact. IMPRESSION: Chronic emphysematous and parenchymal changes without new acute pulmonary process.
[2019-05-13] MEDS ORDERED: NITROGLYCERIN SL TABS 0.4 MG TAB SUBLINGUAL PRN (08:57)
[2019-05-13] MEDS ORDERED: HEPARIN SODIUM,PORCINE 5,000 UNIT/ML 1 ML VIAL IV ONE (08:58)
[2019-05-13] MEDS: HEPARIN SOD,PORK IN 0.45% NACL 25,000 UNIT in 0.45% NACL 1 250ML.BAG IV SCH (09:12)
[2019-05-13 09:18] VITALS: RESP 18
[2019-05-13] MEDS ORDERED: ALBUTEROL NEBULIZED 2.5 MG/3 ML INHALATION PRN (09:56)
[2019-05-13 10:21] VITALS: BMI 25.4
[2019-05-13] MEDS: amLODIPine 5 MG TAB PO SCH (10:48)
[2019-05-13] MEDS: METOPROLOL SUCCINATE (ER) 25 MG TAB.ER.24H PO SCH (10:48)
[2019-05-13] MEDS: IPRATROPIUM-ALBUTEROL 3 ML NEB INHALATION SCH ×3 (11:44→19:01)
[2019-05-13] MEDS: SYMBICORT 160-4.5 MCG INHALER INHALATION SCH ×2 (11:45→19:00)
--- NOTE | 2019-05-13 15:53 | P.HPIM ---
History of Present Illness H&P Date: 05/13/19 Chief Complaint: Chest pain, cough History of presenting complaint: This is a pleasant 78-year-old patient of Dr. Ariza. Chronic stable medical conditions include hyperlipidemia, hypertension, osteoarthritis, diverticulosis, home oxygen 2 L. Last night patient started of with the cough with yellow sputum rather take short of breath fever. Also get pain below both the rib cage below the breast. Pain did cauterize neck and arm also. Present on and off for a few hours. Some perspiration. Some shortness of breath. Admitted for the same. Was a concern about cardiac causes also. Presented to ER. Review of systems: GEN.: Fever tired EYES: None HEENT: None NECK: None RESPIRATORY: Thick chunky sputum CARDIOVASCULAR: As above GASTROINTESTINAL: None GENITOURINARY: None MUSCULOSKELETAL: Pain in the joints] LYMPHATICS: None HEMATOLOGICAL: None PSYCHIATRY: None NEUROLOGICAL: None Past medical history to include: COPD, hyperlipidemia, hypertension, osteoarthritis, pneumonia, diverticulosis, home oxygen 2 L, left arm fracture Social history: Lives alone. Smoked for about 39 years stopped in 1997. Smoked less than a pack a day. No alcohol. Family history: Consistent lung cancer Physical examination: VITAL SIGNS: 100.1, 86, 24, 1 67 x 74, 95% room air GENERAL: Average built, sitting up, comfortable. EYES: Pupils equal. Conjunctiva normal. HEENT: External appearance of nose and ears normal, oral cavity grossly normal. NECK: JVD not raised; masses not palpable. HEART: First and second heart sounds are normal; no edema. LUNGS:[ Respiratory rate increased, decreased breath sounds. Some wheezing ABDOMEN: Soft, nontender, liver spleen not palpable, no masses palpable. PSYCH: Alert and oriented x3; mood and affect normal. NEUROLOGICAL: Cranial nerves grossly intact; no facial asymmetry, power and sensation grossly intact. LYMPHATICS: No lymph nodes palpable in the axilla and neck - INVESTIGATIONS, reviewed in the clinical context: White count 7.4 hemoglobin 13.5 potassium 3.3 creatinine 0.57 Troponin I 2 negative EKG tracing personally reviewed by me shows normal sinus rhythm Chest x-ray film personally reviewed. Reviewed by me shows questionable right lower lobe pneumonia Assessment: -Possible right lower lobe pneumonia -Anterior chest wall pain, rule out cardiac cause. Cardiac risk factors include hyperlipidemia, hypertension -COPD in an ex-smoker -Hyperlipidemia -Essential hypertension -Primary osteoarthritis -Colonic diverticulosis -chronic hypoxic respiratory failure on home oxygen 2 L Plan: We'll start the patient IV ceftriaxone. Should be able to be switched to oral antibiotic tomorrow. Get a cardiology consultation. Home medications resumed. Replace potassium. Care was discussed with the patient. Bronchodilators. We'll watch the patient for 23 hours. Troponins are negative Past Medical History Past Medical History: Asthma, COPD, GI Bleed, Hyperlipidemia, Hypertension, Osteoarthritis (OA), Pneumonia, Respiratory Disorder Additional Past Medical History / Comment(s): COPD with bullous changes in the upper lobes bilaterally, chronic hypoxic respiratory failure, home oxygen at 2L/NC mostly ATC, recent lower GI bleed, lt arm fx 11/29/18, arthritis in multiple joints, chronic low back pain, herniated lumbar discs, left sided sciatica, diverticulitis, urinary leakage. History of Any Multi-Drug Resistant Organisms: None Reported Past Surgical History: Appendectomy, Bowel Resection, Cholecystectomy, Heart Catheterization, Orthopedic Surgery, Tubal Ligation Additional Past Surgical History / Comment(s): Bronchoscopies/lavages, bowel resection due to diverticulitis 2012, bilat knee arthroscopy, sinus surgery twice, carpal tunnel left wrist, colonoscopies/polypecomies, back injections, left wrist frature with pins placed 12-07-2018 and since removed. Past Anesthesia/Blood Transfusion Reactions: No Reported Reaction Additional Past Anesthesia/Blood Transfusion Reaction / Comment(s): has never received blood Smoking Status: Former smoker - Past Family History Mother Family Medical History: Myocardial Infarction ([place]) Additional Family Medical History / Comment(s): Mother of [place] at age 65 yrs. Sister(s) Family Medical History: Cancer Additional Family Medical History / Comment(s): Twin sister had LUNG cancer. Father Family Medical History: Cancer Additional Family Medical History / Comment(s): Father had cancer in his neck. Medications and Allergies Home Medications Medication Instructions Recorded Confirmed Type Metoprolol Succinate [Toprol XL] 12.5 mg PO DAILY 09/25/17 05/13/19 History amLODIPine [Norvasc] 5 mg PO DAILY 09/25/17 05/13/19 History Albuterol Inhaler [Ventolin Hfa 2 puff INHALATION RT-Q6H PRN 02/09/18 05/13/19 History Inhaler] Budesonide-Formot 160-4.5 Mcg 2 puff INHALATION RT-BID 02/09/18 05/13/19 History [Symbicort 160-4.5 Mcg Inhaler] Atorvastatin [Lipitor] 10 mg PO HS 09/29/18 05/13/19 History Ipratropium-Albuterol Nebulize 3 ml INHALATION RT-QID 03/22/19 05/13/19 History [Duoneb 0.5 mg-3 mg/3 ml Soln] Cetirizine HCl [Zyrtec] 10 mg PO HS 04/08/19 05/13/19 History Ergocalciferol (Vitamin D2) 50,000 unit PO QMONTH 05/13/19 05/13/19 History [Drisdol] Allergies Allergy/AdvReac Type Severity Reaction Status Date / Time amoxicillin [From Augmentin] Allergy Unknown Verified 05/13/19 07:42 clavulanic acid Allergy Unknown Verified 05/13/19 07:42 [From Augmentin] levofloxacin [From Levaquin] Allergy Unknown Verified 05/13/19 07:42 losartan Allergy Unknown Verified 05/13/19 07:42 moxifloxacin HCl Allergy Rash/Hives, Verified 05/13/19 07:42 [From Avelox] SWELLING nitrofurantoin Allergy Rash/Hives Verified 05/13/19 07:42 hydrocodone bitartrate AdvReac Nausea & Verified 05/13/19 07:42 [From Lortab] Vomiting simvastatin AdvReac muscle pain Verified 05/13/19 07:42 Mzmtucn-Onx-Koc Reductase AdvReac MUSCLE PAIN Verified 05/13/19 07:42 Inhibitor Physical Exam Vitals: Vital Signs Temp Pulse Pulse Resp BP BP Pulse Ox 05/13/19 15:11 86 05/13/19 15:00 85 05/13/19 11:54 86 05/13/19 11:47 90 05/13/19 10:28 93 L 05/13/19 09:45 98.1 F 83 18 122/63 93 L 05/13/19 09:00 81 18 95 05/13/19 07:47 100.1 F H 05/13/19 07:30 86 179/81 98 05/13/19 06:52 98.1 F 86 24 167/74 95 Intake and Output 05/13/19 05/13/19 05/13/19 06:59 14:59 22:59 Intake Total 240 Balance 240 Intake: Oral 240 Other: Voiding Method Toilet Weight 65.317 kg Results CBC & Chem 7: 05/13/19 07:05 05/13/19 07:05 Labs: Abnormal Lab Results - Last 24 Hours (Table) 05/13/19 05/13/19 05/13/19 Range/Units 07:05 07:05 07:53 RDW 18.2 H (11.5-15.5) % Lymphocytes # 0.9 L (1.0-4.8) k/uL APTT (22.0-30.0) sec Potassium 3.3 L (3.5-5.1) mmol/L Carbon Dioxide 31 H (22-30) mmol/L Urine Protein Trace H (Negative) 05/13/19 Range/Units 15:04 RDW (11.5-15.5) % Lymphocytes # (1.0-4.8) k/uL APTT 36.1 H (22.0-30.0) sec Potassium (3.5-5.1) mmol/L Carbon Dioxide (22-30) mmol/L Urine Protein (Negative) Thrombosis Risk Factor Assmnt - Choose All That Apply Any of the Below Risk Factors Present?: Yes Each Factor Represents 1 point: Abnormal pulmonary function (COPD) Other Risk Factors: Yes Each Risk Factor Represents 3 Points: Age 75 years or older Other congenital or acquired thrombophilia - If yes, enter type in comment: No Thrombosis Risk Factor Assessment Total Risk Factor Score: 4 Thrombosis Risk Factor Assessment Level: Moderate Risk
[2019-05-13] MEDS: NITROGLYCERIN OINT 1 INCH/GM PACKET TOPICAL SCH ×3 (15:56→23:19)
[2019-05-13] MEDS: ACETAMINOPHEN TAB 325 MG TAB PO PRN ×2 (17:31→23:31)
[2019-05-13] MEDS ORDERED: HEPARIN SODIUM,PORCINE 5,000 UNIT/ML 1 ML VIAL IV PRN (19:30)
[2019-05-13] MEDS ORDERED: LORATADINE 10 MG TAB PO SCH (21:00)
[2019-05-13] MEDS ORDERED: ATORVASTATIN 10 MG TAB PO SCH (21:00)
[2019-05-14 05:43] LABS: Cholesterol 173 mg/dL (<200); HDL Cholesterol 51 mg/dL (40-60); LDL Cholesterol,Calculated 100 mg/dL (0-99); Triglycerides 112 mg/dL (<150)
[2019-05-14] MEDS: NITROGLYCERIN OINT 1 INCH/GM PACKET TOPICAL SCH ×2 (05:44→12:12)
[2019-05-14] MEDS: HEPARIN SOD,PORK IN 0.45% NACL 25,000 UNIT in 0.45% NACL 1 250ML.BAG IV SCH (05:55)
[2019-05-14] MEDS: ACETAMINOPHEN TAB 325 MG TAB PO PRN (06:57)
[2019-05-14] MEDS: IPRATROPIUM-ALBUTEROL 3 ML NEB INHALATION SCH ×2 (07:37→10:59)
[2019-05-14] MEDS: SYMBICORT 160-4.5 MCG INHALER INHALATION SCH (07:38)
[2019-05-14] MEDS: amLODIPine 5 MG TAB PO SCH (08:49)
[2019-05-14] MEDS: METOPROLOL SUCCINATE (ER) 25 MG TAB.ER.24H PO SCH (08:50)
[2019-05-14] MEDS ORDERED: ASPIRIN 325 MG TAB PO SCH (09:00)
--- NOTE | 2019-05-14 10:40 | P.CRDCN ---
History of Present Illness History of present illness: This is Rachael Decker PA-C dictating a consult on this patient The patient was interviewed and examined by me as well as by Dr. Holland Case discussed with Dr. Holland and he agrees with the plan of care IMPRESSION / ASSESSMENT: Atypical chest discomfort, possibly related to bronchitis/pneumonia, troponins negative Coronary angiogram in February of 2018 showed only mild disease in the LAD and RCA Hypertension Dyslipidemia, LDL 100 on atorvastatin 10 mg daily COPD on home O2 PLAN: 2-D echo and Doppler studies to assess cardiac structure and function Increase atorvastatin to 20 mg daily, continue aspirin She is cleared to be transferred to medical floor if needed per primary team or be discharged home with close follow up from a cardiac standpoint Follow-up with primary advanced analytics associate, Dr. Neff within a week HPI Patient is a 78-year-old female with a past medical history of COPD, hypertension, and dyslipidemia who presented with complaints of chest discomfort. Patient woke up with chest discomfort which he describes as chest pressure in the center of her chest that radiated to both sides of her chest and under her ribs. She had also been feeling hot and cold the day before. She has shortness of breath at baseline due to her COPD but denied any worsening shortness of breath. She has also been coughing. Upon presentation to the emergency department her temperature was 98.1F, pulse 86, respirations 24, blood pressure 167/74, oxygen saturation 95% on room air. Chest x-ray showed chronic emphysematous and parenchymal changes without any new acute pulmonary pr ocess. EKG showed sinus mechanism with no significant ST abnormalities. Troponins were negative 3. She was started on IV ceftriaxone for possible right lower lobe pneumonia. Today her chest discomfort has improved some but is still there. She is still coughing. Denies any more fevers or chills. She has been able to get up and use the restroom without any dizziness, lightheadedness. ROS: positive for fevers and chills positive for productive cough no nausea, vomiting or diarrhea, no hematuria, dysuria, no musculoskeletal complaints, no strokes or seizures, no skin lesions. EXAMINATION: Temperature 98.8F, pulse 80, respirations 18, blood pressure 142/62, oxygen saturation 95% on 2 L nasal cannula Patient seen and examined sitting up at the side of the bed, in no acute distre ss Breath sounds are diminished bilaterally Heart is regular, normal S1 and S2, no murmurs appreciated REVIEW OF LABS, ECG & MEDICAL DATA WBC 7.4, hemoglobin 13.5, potassium 3.3, B1 10, creatinine 0.57, magnesium 2.1 Total cholesterol 173, triglycerides 112, LDL 100, HDL 51 Troponin negative 3 Chest x-ray showed chronic emphysematous and parenchymal changes without new acute pulmonary process Coronary angiogram in February of 2018 showed only mild disease in the LAD and RCA Past Medical History Past Medical History: Asthma, COPD, GI Bleed, Hyperlipidemia, Hypertension, Osteoarthritis (OA), Pneumonia, Respiratory Disorder Additional Past Medical History / Comment(s): COPD with bullous changes in the upper lobes bilaterally, chronic hypoxic respiratory failure, home oxygen at 2L/NC mostly ATC, recent lower GI bleed, lt arm fx 11/29/18, arthritis in multiple joints, chronic low back pain, herniated lumbar discs, left sided sc iatica, diverticulitis, urinary leakage. History of Any Multi-Drug Resistant Organisms: None Reported Past Surgical History: Appendectomy, Bowel Resection, Cholecystectomy, Heart Catheterization, Orthopedic Surgery, Tubal Ligation Additional Past Surgical History / Comment(s): Bronchoscopies/lavages, bowel resection due to diverticulitis 2012, bilat knee arthroscopy, sinus surgery twice, carpal tunnel left wrist, colonoscopies/polypecomies, back injections, left wrist frature with pins placed 12-07-2018 and since removed. Past Anesthesia/Blood Transfusion Reactions: No Reported Reaction Additional Past Anesthesia/Blood Transfusion Reaction / Comment(s): has never received blood Smoking Status: Former smoker - Past Family History Mother Family Medical History: Myocardial Infarction ([place]) Additional Family Medical History / Comment(s): Mother of [place] at age 65 yrs. Sister(s) Family Medical History: Cancer Additional Family Medical History / Comment(s): Twin sister had LUNG cancer. Father Family Medical History: Cancer Additional Family Medical History / Comment(s): Father had cancer in his neck. Medications and Allergies Home Medications Medication Instructions Recorded Confirmed Type Metoprolol Succinate [Toprol XL] 12.5 mg PO DAILY 09/25/17 05/13/19 History amLODIPine [Norvasc] 5 mg PO DAILY 09/25/17 05/13/19 History Albuterol Inhaler [Ventolin Hfa 2 puff INHALATION RT-Q6H PRN 02/09/18 05/13/19 History Inhaler] Budesonide-Formot 160-4.5 Mcg 2 puff INHALATION RT-BID 02/09/18 05/13/19 History [Symbicort 160-4.5 Mcg Inhaler] Atorvastatin [Lipitor] 10 mg PO HS 09/29/18 05/13/19 History Ipratropium-Albuterol Nebulize 3 ml INHALATION RT-QID 03/22/19 05/13/19 History [Duoneb 0.5 mg-3 mg/3 ml Soln] Cetirizine HCl [Zyrtec] 10 mg PO HS 04/08/19 05/13/19 History Ergocalciferol (Vitamin D2) 50,000 unit PO QMONTH 05/13/19 05/13/19 History [Drisdol] Allergies Allergy/AdvReac Type Severity Reaction Status Date / Time amoxicillin [From Augmentin] Allergy Unknown Verified 05/13/19 07:42 clavulanic acid Allergy Unknown Verified 05/13/19 07:42 [From Augmentin] levofloxacin [From Levaquin] Allergy Unknown Verified 05/13/19 07:42 losartan Allergy Unknown Verified 05/13/19 07:42 moxifloxacin HCl Allergy Rash/Hives, Verified 05/13/19 07:42 [From Avelox] SWELLING nitrofurantoin Allergy Rash/Hives Verified 05/13/19 07:42 hydrocodone bitartrate AdvReac Nausea & Verified 05/13/19 07:42 [From Lortab] Vomiting simvastatin AdvReac muscle pain Verified 05/13/19 07:42 Ddarxrf-Fco-Yrs Reductase AdvReac MUSCLE PAIN Verified 05/13/19 07:42 Inhibitor Physical Exam Vitals: Vital Signs Temp Pulse Pulse Resp BP Pulse Ox 05/14/19 07:52 88 05/14/19 07:39 88 05/14/19 07:01 98.8 F 80 18 142/62 95 05/14/19 04:00 99.2 F 80 18 151/70 95 05/13/19 23:50 99.5 F 84 18 164/70 94 L 05/13/19 19:12 85 05/13/19 19:09 98.5 F 84 18 116/67 96 05/13/19 19:02 82 05/13/19 15:38 98.0 F 83 18 135/69 94 L 05/13/19 15:11 86 05/13/19 15:00 85 05/13/19 11:54 86 05/13/19 11:47 90 05/13/19 10:28 93 L 05/13/19 09:45 98.1 F 83 18 122/63 93 L Intake and Output 05/13/19 05/14/19 05/14/19 22:59 06:59 14:59 Intake Total 365.581 82.208 Balance 365.581 82.208 Intake: Intake, IV Titration 125.581 82.208 Amount Heparin Sod,Pork in 0.45% 125.581 82.208 NaCl 25,000 unit In 0.45 % NaCl 1 250ml.bag @ 12 UNITS/KG/HR 7.838 mls/hr IV .Q24H [facility] Rx#: [id number] Oral 240 Other: Voiding Method Toilet Toilet # Voids 1 1 Results 05/13/19 07:05 05/13/19 07:05 Cardiac Enzymes 05/13/19 05/13/19 Range/Units 10:00 18:53 Troponin I <0.012 <0.012 (0.000-0.034) ng/mL Coagulation 05/13/19 05/13/19 05/14/19 Range/Units 15:04 22:29 04:57 APTT 36.1 H 43.8 H 54.2 H (22.0-30.0) sec Lipids 05/14/19 Range/Units 04:57 Triglycerides 112 (<150) mg/dL Cholesterol 173 (<200) mg/dL HDL Cholesterol 51 (40-60) mg/dL Current Medications Generic Name Dose Route Start Last Admin Trade Name Freq PRN Reason Stop Dose Admin Acetaminophen 650 mg 05/13/19 17:26 05/14/19 06:57 Tylenol Tab PO 650 mg Q4HR PRN Administration Fever and/ or Pain Albuterol Sulfate 2.5 mg 05/13/19 09:56 Ventolin Nebulized INHALATION RT-Q6H PRN Shortness Of Breath Albuterol/Ipratropium 3 ml 05/13/19 12:00 05/14/19 07:37 Duoneb 0.5 Mg-3 Mg/3 Ml Soln INHALATION 3 ml RT-QID JAI Administration Amlodipine Besylate 5 mg 05/13/19 10:00 05/14/19 08:49 Norvasc PO 5 mg DAILY JAI Administration Aspirin 325 mg 05/14/19 09:00 05/14/19 08:49 Aspirin PO 325 mg DAILY JAI Administration Atorvastatin Calcium 10 mg 05/13/19 21:00 05/13/19 20:52 Lipitor PO 10 mg HS JAI Administration Budesonide/Formoterol Fumarate 2 puff 05/13/19 11:00 05/14/19 07:38 Symbicort 160-4.5 Mcg Inhaler INHALATION 2 puff RT-BID JAI Administration Heparin Sodium (Porcine) 0 unit 05/13/19 19:30 Heparin IV PER PROTOCOL PRN Low PTT Protocol Ceftriaxone Sodium 1 gm/ 50 mls @ 100 mls/hr 05/13/19 15:45 05/14/19 08:49 Sodium Chloride IVPB 100 mls/hr Q24HR JAI Administration Loratadine 10 mg 05/13/19 21:00 05/13/19 20:52 Claritin PO 10 mg HS [facility] Administration Metoprolol Succinate 12.5 mg 05/13/19 10:00 05/14/19 08:50 Toprol Xl PO 12.5 mg DAILY [facility] Administration Nitroglycerin 1 inch 05/13/19 12:00 05/14/19 05:44 Nitro-Bid Oint TOPICAL Not Given Q6HR [facility] Nitroglycerin 0.4 mg 05/13/19 08:57 Nitrostat SUBLINGUAL Q5M PRN Chest Pain Intake and Output 05/13/19 05/14/19 05/14/19 22:59 06:59 14:59 Intake Total 365.581 82.208 Balance 365.581 82.208 Intake: Intake, IV Titration 125.581 82.208 Amount Heparin Sod,Pork in 0.45% 125.581 82.208 NaCl 25,000 unit In 0.45 % NaCl 1 250ml.bag @ 12 UNITS/KG/HR 7.838 mls/hr IV .Q24H [facility] Rx#: [id number] Oral 240 Other: Voiding Method Toilet Toilet # Voids 1 1 05/13/19 07:05 05/13/19 07:05
[2019-05-14 11:27] VITALS: BP 118/69; PULSE 75; TEMP 98
--- NOTE | 2019-05-14 16:27 | ECHOF ---
Referral Reason:chest pain MEASUREMENTS -------- HEIGHT: 160.0 cm WEIGHT: 65.3 kg BP: 120/60 IVSd: 1.0 cm (0.6 - 1.1) LVIDd: 4.8 cm (3.9 - 5.3) LVPWd: 1.0 cm (0.6 - 1.1) IVSs: 1.2 cm LVIDs: 3.5 cm LVPWs: 1.3 cm LA Diam: 3.2 cm (2.7 - 3.8) RVIDd: 2.5 cm (< 3.3) LAESV Index (A-L): 24.84 ml/m Ao Diam: 2.5 cm (2.0 - 3.7) LA Diam: 3.1 cm (2.7 - 3.8) AV Cusp: 1.8 cm (1.5 - 2.6) EPSS: 0.6 cm MV E Kevin: 0.46 m/s MV DecT: 162 ms MV A Kevin: 0.74 m/s MV E/A Ratio: 0.63 RAP: 5.00 mmHg RVSP: 27.78 mmHg MV EF SLOPE: 63.50 mm/s (70 - 150) MV EXCURSION: 18.74 mm (> 18.000) FINDINGS -------- Sinus rhythm. This was a technically good study. LV size, wall thickness and systolic function are normal, with an EF greater than 55%. The left andrae tricular size is normal. The right ventricle is normal in size. The left atrial size is normal. The right atrial size is normal. The aortic valve is trileaflet, and appears structurally normal. No aortic stenosis or regurgitation. Mild mitral regurgitation is present. Mild tricuspid regurgitation present. There is no evidence of pulmonary hypertension. The right v entricular systolic pressure, as measured by Doppler, is 27.78mmHg. There is no pulmonic regurgitation present. The aortic root size is normal. There is no pericardial effusion. CONCLUSIONS -------- 1. LV size, wall thickness and systolic function are normal, with an EF greater than 55%. 2. The left ventricular size is normal. 3. The right ventricle is normal in size. 4. The left atrial size is normal. 5. The right atrial size is normal. 6. The aortic valve is trileaflet, and appears structurally normal. No aortic stenosis or regurgitati on. 7. Mild mitral regurgitation is present. 8. Mild tricuspid regurgitation present. 9. There is no evidence of pulmonary hypertension. 10. The right ventricular systolic pressure, as measured by Doppler, is 27.78mmHg. 11. There is no pulmonic regurgitation present. 12. The aortic root size is normal. 13. There is no pericardial effusion. CAMPAIGN MANAGEMENT SPECIALIST: Stephenie Michel RDCS
[2019-05-14] MEDS ORDERED: ATORVASTATIN 20 MG TAB PO SCH (21:00)
--- NOTE | 2019-05-14 23:41 | P.DS ---
Providers Date of admission: 05/13/19 09:03 Expected date of discharge: 05/14/19 Attending physician: Gilberto Devi Consults: 05/13/19 08:57 Consult Physician Urgent Consulting Provider: [facility] Consult Reason/Comments: Unstable angina Do you want consulting provider notified?: Yes 05/13/19 09:53 Consult Physician Routine Consulting Provider: Jose Holland Consult Reason/Comments: chest pain Do you want consulting provider notified?: Already Contacted Primary care physician: Neptali Ariza [facility] Course: : This is a pleasant 78-year-old patient of Dr. Ariza. Chronic stable medical conditions include hyperlipidemia, hypertension, osteoarthritis, diverticulosis, home oxygen 2 L. Last night patient started of with the cough with yellow sputum rather take short of breath fever. Also get pain below both the rib cage below the breast. Pain did cauterize neck and arm also. Present on and off for a few hours. Some perspiration. Some shortness of breath. Admitted for the same. Was a concern about cardiac causes also. Presented to ER. Patient's symptoms were compatible with pneumonia. Patient also bringing up sputum. Treated with IV antibiotic. Feeling better. No fever no white count. She'll complete the course of antibiotic at home. Feeding better. Consultation: Dr. wallace Randolph from cardiology Physical examination: VITAL SIGNS: 98, 75, 18, 11 8 x 69, 95% on 2 L GENERAL: Average built, sitting up, comfortable. HEART: First and second heart sounds are normal; no edema. LUNGS:[ Respiratory rate increased, decreased breath sounds. Some wheezing ABDOMEN: Soft, nontender, liver spleen not palpable, no masses palpable. - INVESTIGATIONS, reviewed in the clinical context: White count 7.4 hemoglobin 13.5 potassium 3.3 creatinine 0.57 Troponin I 2 negative EKG tracing personally reviewed by me shows normal sinus rhythm Chest x-ray film personally reviewed. Reviewed by me shows questionable right lower lobe pneumonia LDL 100 2-D echo showed preserved LV function EF 55% Discharge diagnosis: -Possible right lower lobe pneumonia, POA -Anterior chest wall pain, secondary to pneumonia -COPD in an ex-smoker -Hyperlipidemia -Essential hypertension -Primary osteoarthritis -Colonic diverticulosis -chronic hypoxic respiratory failure on home oxygen 2 L Disposition: Home Patient Condition at Discharge: Stable Plan - Discharge Summary New Discharge Prescriptions: New Aspirin 81 mg PO DAILY #30 chewable Atorvastatin [Lipitor] 20 mg PO HS #30 tab Cefdinir [Omnicef] 300 mg PO BID #6 cap Continue Metoprolol Succinate [Toprol XL] 12.5 mg PO DAILY amLODIPine [Norvasc] 5 mg PO DAILY Albuterol Inhaler [Ventolin Hfa Inhaler] 2 puff INHALATION RT-Q6H PRN PRN Reason: Shortness Of Breath Budesonide-Formot 160-4.5 Mcg [Symbicort 160-4.5 Mcg Inhaler] 2 puff INHALATION RT-BID Ipratropium-Albuterol Nebulize [Duoneb 0.5 mg-3 mg/3 ml Soln] 3 ml INHALATION RT-QID Cetirizine HCl [Zyrtec] 10 mg PO HS Ergocalciferol (Vitamin D2) [Drisdol] 50,000 unit PO QMONTH Discontinued Atorvastatin [Lipitor] 10 mg PO HS Discharge Medication List Metoprolol Succinate [Toprol XL] 12.5 mg PO DAILY 09/25/17 [History] amLODIPine [Norvasc] 5 mg PO DAILY 09/25/17 [History] Albuterol Inhaler [Ventolin Hfa Inhaler] 2 puff INHALATION RT-Q6H PRN 02/09/18 [History] Budesonide-Formot 160-4.5 Mcg [Symbicort 160-4.5 Mcg Inhaler] 2 puff INHALATION RT-BID 02/09/18 [History] Ipratropium-Albuterol Nebulize [Duoneb 0.5 mg-3 mg/3 ml Soln] 3 ml INHALATION RT-QID 03/22/19 [History] Cetirizine HCl [Zyrtec] 10 mg PO HS 04/08/19 [History] Ergocalciferol (Vitamin D2) [Drisdol] 50,000 unit PO QMONTH 05/13/19 [History] Aspirin 81 mg PO DAILY #30 chewable 05/14/19 [Rx] Atorvastatin [Lipitor] 20 mg PO HS #30 tab 05/14/19 [Rx] Cefdinir [Omnicef] 300 mg PO BID #6 cap 05/14/19 [Rx] Follow up Appointment(s)/Referral(s): Savage Neff MD [STAFF PHYSICIAN] - 05/28/19 3:00 pm (Follow-up with Dr. Lance/Sanam Turner within 1-2 weeks) Neptali Ariza DO [Primary Care Provider] - 1-2 days Patient Instructions/Handouts: Chest Pain (DC), COPD (Chronic Obstructive Pulmonary Disease) (DC) Discharge Disposition: HOME SELF-CARE
[2019-05-15] MEDS ORDERED: CEFDINIR 300 MG CAP PO SCH (09:00)
== END 2019-05-14 15:13 | disposition home or self-care (01) ==
LOC: EC 06:50 → 1SOBS 09:03
PROVIDERS: ADMIT Hospitalist; ATTEND Hospitalist
DX: R07.89 Other chest pain (principal); J43.9 Emphysema, unspecified; R50.9 Fever, unspecified; J96.11 Chronic respiratory failure with hypoxia; E78.00 Pure hypercholesterolemia, unspecified; M13.0 Polyarthritis, unspecified; I10 Essential (primary) hypertension; E78.5 Hyperlipidemia, unspecified; I25.10 Atherosclerotic heart disease of native coronary artery without angina pectoris; Z99.81 Dependence on supplemental oxygen; G89.29 Other chronic pain; M54.5 Low back pain; M51.16 Intervertebral disc disorders with radiculopathy, lumbar region; R32 Unspecified urinary incontinence; F41.9 Anxiety disorder, unspecified; K57.30 Diverticulosis of large intestine without perforation or abscess without bleeding; Z79.51 Long term (current) use of inhaled steroids; Z79.899 Other long term (current) drug therapy; Z88.1 Allergy status to other antibiotic agents; Z88.5 Allergy status to narcotic agent; Z88.0 Allergy status to penicillin; Z88.8 Allergy status to other drugs, medicaments and biological substances; Z87.01 Personal history of pneumonia (recurrent); Z87.891 Personal history of nicotine dependence; Z87.81 Personal history of (healed) traumatic fracture; Z87.19 Personal history of other diseases of the digestive system; Z98.51 Tubal ligation status; Z90.49 Acquired absence of other specified parts of digestive tract; Z86.010 Personal history of colon polyps; Z80.1 Family history of malignant neoplasm of trachea, bronchus and lung; Z82.49 Family history of ischemic heart disease and other diseases of the circulatory system; Z80.8 Family history of malignant neoplasm of other organs or systems
CPT/HCPCS: 96366 ×2; 96368; 96376; 96361; 96365; 99291; 36415; 94640 ×4; 93005; 93306; 80061; 80053; 83605; 83735; 84484; 85025; 85610; 85730 ×2; 81003; 87040; 71046; G0378 ×2; J1644 ×3; J0696 ×2

== ENCOUNTER 2019-06-04 15:36 | Emergency (ER) | payer MEDICARE ==
[2019-06-04 15:45] VITALS: RESP 16; TEMP 98.1
--- NOTE | 2019-06-04 16:22 | ED ---
General Adult HPI - General Chief complaint: Abdominal Pain Stated complaint: abdominal pain Time Seen by Provider: 06/04/19 15:52 Source: patient, RN notes reviewed, old records reviewed Mode of arrival: wheelchair Limitations: no limitations - History of Present Illness Initial comments: 78-year-old female patient with past history including bowel resection secondary to diverticulitis approximately 15 years ago presents to ED with chief complaint of abdominal pain for approximately 8 months. Patient reports that she has abdominal pain and database in her epigastric region as well as her generalized abdomen. Patient reports that is causes her to have decreased appetite, nausea and vomiting. Patient also reports that she has had pain in the last few days her left lower quadrant. Patient was this feels similar to the diverticular she experienced the past. Patient was recently seen by medical office clerk today where they recommend presenting to ER. Systemic: Pt denies fatigue, fever/chills, rash. Pt denies weakness, night sweats, weight loss. Neuro: Pt denies headache, visual disturbances, syncope or pre-syncope. HEENT: Pt denies ocular discharge or irritation, otalgia, rhinorrhea, pharyngitis or notable lymphadenopathy. Cardiopulmonary: Pt denies chest pain, SOB, heart palpitations, dyspnea on exertion. Abdominal/GI: Pt denies abdominal pain, n/v/d. : Pt denies dysuria, burning w/ urination, frequency/urgency. Denies new onset urinary or bowel incontinence. MSK: Pt denies myalgia, loss of strength or function in extremities. Neuro: Pt denies new onset weakness, paresthesias. - Related Data Home Medications Medication Instructions Recorded Confirmed Metoprolol Succinate [Toprol XL] 12.5 mg PO DAILY 09/25/17 06/04/19 amLODIPine [Norvasc] 5 mg PO DAILY 09/25/17 06/04/19 Albuterol Inhaler [Ventolin Hfa 2 puff INHALATION RT-Q6H PRN 02/09/18 06/04/19 Inhaler] Budesonide-Formot 160-4.5 Mcg 2 puff INHALATION RT-BID 02/09/18 06/04/19 [Symbicort 160-4.5 Mcg Inhaler] Ipratropium-Albuterol Nebulize 3 ml INHALATION RT-QID 03/22/19 06/04/19 [Duoneb 0.5 mg-3 mg/3 ml Soln] Cetirizine HCl [Zyrtec] 10 mg PO HS 04/08/19 06/04/19 Ergocalciferol (Vitamin D2) 50,000 unit PO Q30D 05/13/19 06/04/19 [Drisdol] Hydrochlorothiazide [Hydrodiuril] 25 mg PO DAILY 06/04/19 06/04/19 L.acidoph,Paracasei, B.lactis 1 cap PO DAILY 06/04/19 06/04/19 [Probiotic] Ubidecarenone [Co Q-10] 200 mg PO DAILY 06/04/19 06/04/19 Allergies Allergy/AdvReac Type Severity Reaction Status Date / Time amoxicillin [From Augmentin] Allergy Unknown Verified 06/04/19 16:33 clavulanic acid Allergy Unknown Verified 06/04/19 16:33 [From Augmentin] levofloxacin [From Levaquin] Allergy Unknown Verified 06/04/19 16:33 losartan Allergy Unknown Verified 06/04/19 16:33 moxifloxacin HCl Allergy Rash/Hives, Verified 06/04/19 16:33 [From Avelox] SWELLING nitrofurantoin Allergy Rash/Hives Verified 06/04/19 16:33 hydrocodone bitartrate AdvReac Nausea & Verified 06/04/19 16:33 [From Lortab] Vomiting simvastatin AdvReac muscle pain Verified 06/04/19 16:33 Wxbmrez-Ddx-Urj Reductase AdvReac MUSCLE PAIN Verified 06/04/19 16:33 Inhibitor Review of Systems ROS Statement: Those systems with pertinent positive or pertinent negative responses have been documented in the HPI. ROS Other: All systems not noted in ROS Statement are negative. Past Medical History Past Medical History: Asthma, COPD, GI Bleed, Hyperlipidemia, Hypertension, Osteoarthritis (OA), Pneumonia, Respiratory Disorder Additional Past Medical History / Comment(s): COPD with bullous changes in the upper lobes bilaterally, chronic hypoxic respiratory failure, home oxygen at 2L/NC mostly ATC, recent lower GI bleed, lt arm fx 11/29/18, arthritis in multiple joints, chronic low back pain, herniated lumbar discs, left sided sciatica, diverticulitis, urinary leakage. History of Any Multi-Drug Resistant Organisms: None Reported Past Surgical History: Appendectomy, Bowel Resection, Cholecystectomy, Heart Catheterization, Orthopedic Surgery, Tubal Ligation Additional Past Surgical History / Comment(s): Bronchoscopies/lavages, bowel resection due to diverticulitis 2012, bilat knee arthroscopy, sinus surgery twice, carpal tunnel left wrist, colonoscopies/polypecomies, back injections, left wrist frature with pins placed 12-07-2018 and since removed. Past Anesthesia/Blood Transfusion Reactions: No Reported Reaction Additional Past Anesthesia/Blood Transfusion Reaction / Comment(s): has never received blood Past Psychological History: Anxiety Smoking Status: Former smoker Past Alcohol Use History: None Reported Past Drug Use History: None Reported - Past Family History Mother Family Medical History: Myocardial Infarction ([place]) Additional Family Medical History / Comment(s): Mother of [place] at age 65 yrs. Sister(s) Family Medical History: Cancer Additional Family Medical History / Comment(s): Twin sister had LUNG cancer. Father Family Medical History: Cancer Additional Family Medical History / Comment(s): Father had cancer in his neck. General Exam - General Exam Comments Initial Comments: Constitutional: NAD, AOX3, Pt has pleasant affect. HEENT: NC/AT, trachea midline, neck supple, no lymphadenopathy. Posterior pharynx non erythematous, without exudates. External ears appear normal, without discharge. Mucous membranes moist. Eyes PERRLA, EOM intact. There is no scleral icterus. No pallor noted. Cardiopulmonary: RRR, no murmurs, rubs or gallops, no JVD noted. Lungs CTAB in anterior and posterior schulz. No peripheral edema. Abdominal exam: Abdomen soft and non-distended. Abdomen mildly tender to palpation in left lower quadrant and epigastric region, no other areas of abdominal tenderness. Bowel sounds active in LLQ. No hepatosplenomegaly. No ecchymosis Neuro: CN II-XII grossly intact. No nuchal rigidity. No raccon eyes, no smith sign, no hemotympanum. No cervical spinal tenderness. MSK: No posterior calf tenderness bilaterally, homans sign negative bilaterally. Posterior tibialis and radial pulse +2 bilaterally. Sensation intact in upper and lower extremities. Full active ROM in upper and lower extremities, 5/5 stregnth. Limitations: no limitations Course Vital Signs 06/04/19 06/04/19 15:40 19:00 Temperature 98.1 F Pulse Rate 92 91 Respiratory 16 16 Rate Blood Pressure 122/77 123/64 O2 Sat by Pulse 89 L 91 L Oximetry Medical Decision Making - Medical Decision Making 78-year-old female patient with past history including bowel resection secondary to diverticulitis approximately 15 years ago presents to ED with chief complaint of abdominal pain for approximately 8 months. Patient reports that she has abdominal pain and database in her epigastric region as well as her generalized abdomen. Patient reports that is causes her to have decreased appetite, nausea and vomiting. Patient also reports that she has had pain in the last few days her left lower quadrant. Patient was this feels similar to the diverticular she experienced the past. Patient was recently seen by medical office clerk today where they recommend presenting to ER. Patient vital signs stable, afebrile. Patient is here to mildly decreased, likely baseline for patient admission does wear home oxygen for COPD. Physical exam displayed mild left lower quadrant tenderness. No other acute pathology. Laboratory investigations revealed mild leukocytosis, otherwise nonspecific. CT of the pelvis did not display any acute process. Patient discharged with follow-up. Case discussed with Dr. Rice. - Lab Data Result diagrams: 06/04/19 16:00 06/04/19 16:00 Lab Results 06/04/19 06/04/19 06/04/19 Range/Units 16:00 16:00 16:00 WBC 14.3 H (3.8-10.6) k/uL RBC 4.45 (3.80-5.40) m/uL Hgb 12.4 (11.4-16.0) gm/dL Hct 36.9 (34.0-46.0) % MCV 83.0 (80.0-100.0) fL MCH 27.8 (25.0-35.0) pg MCHC 33.5 (31.0-37.0) g/dL RDW 17.7 H (11.5-15.5) % Plt Count 384 (150-450) k/uL Neutrophils % 75 % Lymphocytes % 13 % Monocytes % 7 % Eosinophils % 2 % Basophils % 0 % Neutrophils # 10.7 H (1.3-7.7) k/uL Lymphocytes # 1.8 (1.0-4.8) k/uL Monocytes # 1.0 (0-1.0) k/uL Eosinophils # 0.3 (0-0.7) k/uL Basophils # 0.1 (0-0.2) k/uL Anisocytosis Slight Sodium 133 L (137-145) mmol/L Potassium 3.4 L (3.5-5.1) mmol/L Chloride 94 L (98-107) mmol/L Carbon Dioxide 27 (22-30) mmol/L Anion Gap 12 mmol/L BUN 9 (7-17) mg/dL Creatinine 0.56 (0.52-1.04) mg/dL Est GFR (CKD-EPI)AfAm >90 (>60 ml/min/1.73 sqM) Est GFR (CKD-EPI)NonAf >90 (>60 ml/min/1.73 sqM) Glucose 100 H (74-99) mg/dL Plasma Lactic Acid Carlos (0.7-2.0) mmol/L Calcium 9.3 (8.4-10.2) mg/dL Total Bilirubin 0.7 (0.2-1.3) mg/dL AST 21 (14-36) U/L ALT 23 (9-52) U/L Alkaline Phosphatase 81 (38-126) U/L Total Protein 6.4 (6.3-8.2) g/dL Albumin 3.6 (3.5-5.0) g/dL Lipase 33 (23-300) U/L Urine Color Yellow Urine Appearance Clear (Clear) Urine pH 6.0 (5.0-8.0) Ur Specific [place] 1.013 (1.001-1.035) Urine Protein Trace H (Negative) Urine Glucose (UA) Negative (Negative) Urine Ketones Negative (Negative) Urine Blood Negative (Negative) Urine Nitrite Negative (Negative) Urine Bilirubin Negative (Negative) Urine Urobilinogen <2.0 (<2.0) mg/dL Ur Leukocyte Esterase Trace H (Negative) Urine RBC 1 (0-5) /hpf Urine WBC 2 (0-5) /hpf Ur Squamous Epith Cells 3 (0-4) /hpf Hyaline Casts 5 H (0-2) /lpf Urine Mucus Many H (None) /hpf 06/04/19 Range/Units 16:00 WBC (3.8-10.6) k/uL RBC (3.80-5.40) m/uL Hgb (11.4-16.0) gm/dL Hct (34.0-46.0) % MCV (80.0-100.0) fL MCH (25.0-35.0) pg MCHC (31.0-37.0) g/dL RDW (11.5-15.5) % Plt Count (150-450) k/uL Neutrophils % % Lymphocytes % % Monocytes % % Eosinophils % % Basophils % % Neutrophils # (1.3-7.7) k/uL Lymphocytes # (1.0-4.8) k/uL Monocytes # (0-1.0) k/uL Eosinophils # (0-0.7) k/uL Basophils # (0-0.2) k/uL Anisocytosis Sodium (137-145) mmol/L Potassium (3.5-5.1) mmol/L Chloride (98-107) mmol/L Carbon Dioxide (22-30) mmol/L Anion Gap mmol/L BUN (7-17) mg/dL Creatinine (0.52-1.04) mg/dL Est GFR (CKD-EPI)AfAm (>60 ml/min/1.73 sqM) Est GFR (CKD-EPI)NonAf (>60 ml/min/1.73 sqM) Glucose (74-99) mg/dL Plasma Lactic Acid Carlos 1.1 (0.7-2.0) mmol/L Calcium (8.4-10.2) mg/dL Total Bilirubin (0.2-1.3) mg/dL AST (14-36) U/L ALT (9-52) U/L Alkaline Phosphatase (38-126) U/L Total Protein (6.3-8.2) g/dL Albumin (3.5-5.0) g/dL Lipase (23-300) U/L Urine Color Urine Appearance (Clear) Urine pH (5.0-8.0) Ur Specific [place] (1.001-1.035) Urine Protein (Negative) Urine Glucose (UA) (Negative) Urine Ketones (Negative) Urine Blood (Negative) Urine Nitrite (Negative) Urine Bilirubin (Negative) Urine Urobilinogen (<2.0) mg/dL Ur Leukocyte Esterase (Negative) Urine RBC (0-5) /hpf Urine WBC (0-5) /hpf Ur Squamous Epith Cells (0-4) /hpf Hyaline Casts (0-2) /lpf Urine Mucus (None) /hpf Disposition Clinical Impression: Abdominal pain Disposition: HOME SELF-CARE Condition: Stable Instructions (If sedation given, give patient instructions): Abdominal Pain (ED) Additional Instructions: Patient to adhere to previously discussed treatment plan and will take medication(s) as directed. Patient to follow up with PCP in 1-2 days. Patient to return to ED if symptoms do not improve. Follow-up with GI consult tomorrow as well as primary care physician, return to ER if condition worsens. Is patient prescribed a controlled substance at d/c from ED?: No Referrals: None,Stated [Primary Care Provider] - 1-2 days Francisco Beard MD [STAFF PHYSICIAN] - 1-2 days
[2019-06-04] MEDS ORDERED: SODIUM CHLORIDE 0.9% 500 ML 500 ML IV STA (16:39)
[2019-06-04] MEDS ORDERED: PANTOPRAZOLE 40 MG/10 ML VIAL IVP STA (16:40)
[2019-06-04 16:52] LABS: Anisocytosis Slight; Basophils # (A) 0.1 k/uL (0-0.2); Basophils % (A) 0 %; Eosinophils # (A) 0.3 k/uL (0-0.7); Eosinophils % (A) 2 %; HCT 36.9 % (34.0-46.0); HGB 12.4 gm/dL (11.4-16.0); Lymphocytes # (A) 1.8 k/uL (1.0-4.8); Lymphocytes % (A) 13 %; MCH 27.8 pg (25.0-35.0); MCHC 33.5 g/dL (31.0-37.0); Monocytes % (A) 7 %; Neutrophils # (A) 10.7 k/uL (1.3-7.7); Neutrophils % (A) 75 %; Platelet Count 384 k/uL (150-450); RBC 4.45 m/uL (3.80-5.40); RDW 17.7 % (11.5-15.5); WBC 14.3 k/uL (3.8-10.6)
[2019-06-04 16:59] LABS: Appearance,Urine Clear (Clear); Bilirubin,Urine Negative (Negative); Blood,Urine Negative (Negative); Color,Urine Yellow; Glucose,Urine (UA) Negative (Negative); Hyaline Casts,Urine 5 /lpf (0-2); Ketones,Urine Negative (Negative); Leukocyte Esterase,Urine Trace (Negative); Mucus,Urine Many /hpf; Nitrite,Urine Negative (Negative); Protein,Urine Trace (Negative); RBC,Urine 1 /hpf (0-5); Specific Gravity,Urine 1.013 (1.001-1.035); Squamous Epithelial Cell,Urine 3 /hpf (0-4); Urobilinogen,Urine <2.0 mg/dL (<2.0); WBC,Urine 2 /hpf (0-5)
[2019-06-04 17:04] LABS: ALT 23 U/L (9-52); AST 21 U/L (14-36); African American GFR (CKD) >90 (>60 ml/min/1.73 sqM); Albumin 3.6 g/dL (3.5-5.0); Alkaline Phosphatase 81 U/L (38-126); Anion Gap 12 mmol/L; Blood Urea Nitrogen 9 mg/dL (7-17); Calcium 9.3 mg/dL (8.4-10.2); Carbon Dioxide 27 mmol/L (22-30); Chloride 94 mmol/L (98-107); Glucose 100 mg/dL (74-99); Potassium 3.4 mmol/L (3.5-5.1); Sodium 133 mmol/L (137-145); Total Bilirubin 0.7 mg/dL (0.2-1.3); Total Protein 6.4 g/dL (6.3-8.2)
--- NOTE | 2019-06-04 19:10 | CT ---
EXAMINATION TYPE: CT abdomen pelvis w con DATE OF EXAM: 06/04/2019 COMPARISON: 11/08/2018 HISTORY: Generalized pain CT DLP: 832.2 mGycm Automated exposure control for dose reduction was used. TECHNIQUE: Helical acquisition of images was performed from the lung bases through the pelvis. CONTRAST: Performed without Oral Contrast and with IV Contrast, patient injected with 100 mL of Isovu e 300. FINDINGS: LUNG BASES: No acute findings. LIVER/GB: No significant abnormality is appreciated. PANCREAS: No significant abnormality is seen. SPLEEN: No significant abnormality is seen. ADRENALS: No significant abnormality is seen. KIDNEYS: No significant abnormality is seen. Right renal cysts noted. FREE AIR: No free air is visualized. RETROPERITONEAL ADENOPATHY: None visualized REPRODUCTIVE ORGANS: No significant abnormality is seen URINARY BLADDER: No significant abnormality is seen. PELVIC ADENOPATHY: None visualized. OSSEOUS STRUCTURES: No significant abnormality is seen. BOWEL: No significant abnormality is seen. OTHER: No acute vascular findings. IMPRESSION: NO ACUTE PROCESS.
[2019-06-04 19:20] VITALS: BP 123/64; PULSE 91
== END 2019-06-04 20:21 | disposition home or self-care (01) ==
LOC: EC 15:36
DX: D72.829 Elevated white blood cell count, unspecified (principal); R11.2 Nausea with vomiting, unspecified; J44.9 Chronic obstructive pulmonary disease, unspecified; I10 Essential (primary) hypertension; Z90.49 Acquired absence of other specified parts of digestive tract; Z98.890 Other specified postprocedural states; Z95.818 Presence of other cardiac implants and grafts; Z98.51 Tubal ligation status; Z87.19 Personal history of other diseases of the digestive system; Z87.891 Personal history of nicotine dependence; Z79.51 Long term (current) use of inhaled steroids; Z79.899 Other long term (current) drug therapy; Z88.0 Allergy status to penicillin; Z88.1 Allergy status to other antibiotic agents; Z88.8 Allergy status to other drugs, medicaments and biological substances; Z88.5 Allergy status to narcotic agent
CPT/HCPCS: 36415; 80053; 83605; 83690; 85025; 81001; 74177; 99284; 96374; 96361 ×3; C9113; Q9967

== ENCOUNTER → 2019-06-13 | Outpatient (CLI) | payer MEDICARE ==
[2019-06-13 14:38] LABS: Anisocytosis Slight; HCT 37.2 % (34.0-46.0); HGB 12.1 gm/dL (11.4-16.0); MCH 27.6 pg (25.0-35.0); MCHC 32.5 g/dL (31.0-37.0); Mean Platelet Volume 7.1; Platelet Count 463 k/uL (150-450); RBC 4.38 m/uL (3.80-5.40); RDW 17.6 % (11.5-15.5); WBC 12.9 k/uL (3.8-10.6)
[2019-06-13 15:33] LABS: Erythrocyte Sedimentation Rate 30 mm/hr (0-20)
[2019-06-13 19:33] LABS: African American GFR (CKD) 108.2 (60.0-200.0); C Reactive Protein 2.3 mg/dL (0.0-0.8)
== END | disposition home or self-care (01) ==
LOC: LABWHC1 13:56
PROVIDERS: ATTEND Orthopaedic Surgery
DX: E55.9 Vitamin D deficiency, unspecified (principal); S52.614D Nondisplaced fracture of right ulna styloid process, subsequent encounter for closed fracture with routine healing; I10 Essential (primary) hypertension; J98.4 Other disorders of lung; M25.532 Pain in left wrist; Z48.89 Encounter for other specified surgical aftercare; Z18.12 Retained nonmagnetic metal fragments
CPT/HCPCS: 36415; 82565; 84520; 85027; 85652; 86140

== ENCOUNTER → 2019-06-21 | Outpatient (CLI) | payer MEDICARE ==
--- NOTE | 2019-06-21 14:59 | CT ---
EXAMINATION TYPE: CT wrist LT wo/w con DATE OF EXAM: 06/21/2019 COMPARISON: None. HISTORY: Lt wrist pain, nondisplaced fracture ulnar styloid, unilateral primary osteoarthritis first carpal metacarpal joint, comminuted intra-articular left distal radial fracture December 07. CT DLP: 183.4 mGycm Automated exposure control for dose reduction was used. CONTRAST: Performed without and with IV Contrast, patient injected with 100 mL of Isovue 300. FINDINGS: There is interval complete healing of comminuted impacted distal radial intra-articular fracture. No residual linear lucency is present. Slight dorsal step-off of the distal fracture fragment is identif ied. There is nonhealed avulsion type fracture from the ulnar styloid with 6 mm well-corticated fract ure fragment 3 mm displaced or distracted. A few tiny bony fragments are noted seen best on sagittal images near fracture site. There is slight prominence of the scapholunate space measuring 2 to 3 mm. Carpal joint spaces are oth erwise preserved. Moderate narrowing of base of first metacarpal is present. No suspicious enhancement or fluid collections is present. Lunate capitate relationship maintained on sagittal images. IMPRESSION: As above.
== END | disposition home or self-care (01) ==
LOC: RADCTMAIN 13:34
PROVIDERS: ATTEND Orthopaedic Surgery
DX: S52.572D Other intraarticular fracture of lower end of left radius, subsequent encounter for closed fracture with routine healing (principal); M89.8X4 Other specified disorders of bone, hand; M89.8X8 Other specified disorders of bone, other site; S52.614D Nondisplaced fracture of right ulna styloid process, subsequent encounter for closed fracture with routine healing; M18.12 Unilateral primary osteoarthritis of first carpometacarpal joint, left hand; I10 Essential (primary) hypertension; Z47.89 Encounter for other orthopedic aftercare; Z87.891 Personal history of nicotine dependence
CPT/HCPCS: 73202; Q9967

== ENCOUNTER → 2019-07-11 | Outpatient (CLI) | payer MEDICARE | END | disposition home or self-care (01) | LOC: CPPFTMAIN 11:12 | PROVIDERS: ATTEND Internal Medicine Critical Care Medicine | DX: J44.9 Chronic obstructive pulmonary disease, unspecified (principal); J98.8 Other specified respiratory disorders | CPT/HCPCS: 94060; 94726; 94729 ==

== ENCOUNTER → 2019-10-21 | Outpatient (CLI) | payer MEDICARE ==
--- NOTE | 2019-10-21 15:07 | XR ---
Thoracic spine HISTORY: Pain 2 views of the thoracic spine on 3 images There is multilevel spondylosis. Bone mineralization is reduced. Thoracic vertebral bodies show prese rved height and alignment. Aorta is dense. Loss of disc height at the intervertebral levels of the mi dthoracic spine. IMPRESSION: Degenerative disc disease and osteopenia.
--- NOTE | 2019-10-21 15:15 | XR ---
EXAMINATION TYPE: XR chest 2V DATE OF EXAM: 10/21/2019 COMPARISON: Prior chest x-ray 05/13/[address] 03/22/2019 HISTORY: Back pain, radiologic infiltrative lung, abnormal chest x-ray TECHNIQUE: Frontal and lateral views of the chest are obtained. FINDINGS: Prominent lung volumes with flattening the hemidiaphragms suggestive of underlying COPD, e mphysema. There is multilevel thoracic spondylosis. Aorta is dense. Interstitium is prominent. There is some apical pleural thickening is an in the right upper lobe which was somewhat obscured on prior chest x-ray due to overlying leads. IMPRESSION: Apical scarring suspected in the right lower lobe, CT scan could be performed for additi onal evaluation, patient showed previous apical cavitary lesions at this location.
== END | disposition home or self-care (01) ==
LOC: RADXRMAIN 11:11
PROVIDERS: ATTEND Family Medicine
DX: M51.34 Other intervertebral disc degeneration, thoracic region (principal); M85.88 Other specified disorders of bone density and structure, other site; R91.8 Other nonspecific abnormal finding of lung field
CPT/HCPCS: 71046; 72070

== ENCOUNTER → 2019-12-03 | Outpatient (CLI) | payer MEDICARE ==
[2019-12-03 07:27] LABS: African American GFR (CKD) >90 (>60 ml/min/1.73 sqM); Blood Urea Nitrogen 25 mg/dL (7-17); Non-African American GFR(CKD) 90 (>60 ml/min/1.73 sqM)
--- NOTE | 2019-12-03 08:22 | CT ---
EXAMINATION TYPE: CT chest w con DATE OF EXAM: 12/03/2019 COMPARISON: 03/22/2019 and 11/13/2018 HISTORY: 79-year-old female SOB TECHNIQUE: Contiguous axial scanning of the chest after the administration of 100 mL of Isovue 300. Coronal/sagittal reconstructions performed. CT DLP: 242.9mGycm. Automatic exposure control utilized for a dose reduction. FINDINGS: Heart upper limits of normal in size without pericardial effusion. Mild aortic valvular calcifications. Moderate atherosclerotic arch calcifications with bovine configu ration to the aortic arch. Nonenlarged 6 mm low right paratracheal lymph node. No thoracic lymphadenopathy. Calcified left infra hilar lymph nodes compatible with prior granulomatous disease. Large caliber to the main right and left pulmonary arteries measuring up to 2.7 cm suggesting underly ing pulmonary arterial hypertension. Moderate centrilobular emphysema. Some of the previous pleural parenchymal opacity at the peripheral right upper lobe shows improvement with residual thickening and architectural distortion remaining, o verall decreased from 03/22/2019. Scattered strandy areas of scarring or atelectasis. 5 mm anterior right midlung pulmonary nodule previously measured 7 mm on 03/22/2019. No new consolidation or pleural effusion. Tiny hiatal hernia. Multiple calcified granulomas within the spleen. Right-sided renal cysts measuring up to 4.5 cm and a second one measuring 1.9 cm. Nonobstructive 3 mm left renal calculus. Cholecystectomy clips. A couple diverticula within the visualized upper descend ing colon. Bones: Degenerative changes at the shoulders. Mild anterior spondylosis lower thoracic spine. IMPRESSION: 1. COPD with moderate emphysema. Underlying pulmonary arterial hypertension. 2. Continued improvement in peripheral right upper lobe pleural parenchymal opacity. Suspect residual scarring in this region. Given the residual opacity, an additional 6 month follow-up can be performe d. 3. 5 mm anterior right midlung pulmonary nodule previously measured 7 mm. This can also be reassessed at follow-up though the decrease in size suggests a benign etiology.
== END | disposition home or self-care (01) ==
LOC: RADCTMAIN 06:32
PROVIDERS: ATTEND Internal Medicine Critical Care Medicine
DX: J43.9 Emphysema, unspecified (principal); I27.21 Secondary pulmonary arterial hypertension; R91.1 Solitary pulmonary nodule; R06.02 Shortness of breath; Z88.0 Allergy status to penicillin; Z88.1 Allergy status to other antibiotic agents; Z88.5 Allergy status to narcotic agent
CPT/HCPCS: 82565; 84520; 71260; 36415; Q9967

== ENCOUNTER 2020-02-16 08:33 | Inpatient (IN) | payer MEDICARE ==
--- NOTE | 2020-02-16 09:14 | ED ---
General Adult HPI - General Chief complaint: Shortness of Breath Stated complaint: SOB Time Seen by Provider: 02/16/20 08:40 Source: patient, RN notes reviewed Mode of arrival: ambulatory Limitations: no limitations - History of Present Illness Initial comments: This is a 79-year-old female presents emergency Department chief complaint shortness of breath, cough congestion. Patient states she has severe COPD and sees Dr. Sarabia. Patient states she's on 2 L of oxygen chronically. Patient states that last few days she's had increasing cough which is productive with yellow phlegm. Patient states that she feels increasing shortness breath. Patient states it is difficult to complete a sentence without feeling short of breath. She denies any known fever. Patient recently finished antibiotics including Bactrim and doxycycline for UTI. Patient denies any known sick contacts. Denies any nausea vomiting diarrhea. Patient states that she belie ves she has bronchitis at this time. - Related Data Home Medications Medication Instructions Recorded Confirmed Metoprolol Succinate [Toprol XL] 12.5 mg PO DAILY 09/25/17 02/16/20 amLODIPine [Norvasc] 5 mg PO DAILY 09/25/17 02/16/20 Budesonide-Formot 160-4.5 Mcg 2 puff INHALATION RT-BID 02/09/18 02/16/20 [Symbicort 160-4.5 Mcg Inhaler] Hydrochlorothiazide [Hydrodiuril] 25 mg PO DAILY 06/04/19 02/16/20 Acetaminophen Tab [Tylenol Tab] 1,000 mg PO Q6HR PRN 02/16/20 02/16/20 Albuterol Sulfate [Ventolin HFA] 2 puff INHALATION RT-Q6H PRN 02/16/20 02/16/20 Cholecalciferol [Vitamin D3 (25 5,000 unit PO DAILY 02/16/20 02/16/20 Mcg = 1000 Iu)] Dicyclomine HCl 10 mg PO Q8H PRN 02/16/20 02/16/20 Lovastatin [Mevacor] 10 mg PO HS 02/16/20 02/16/20 Allergies Allergy/AdvReac Type Severity Reaction Status Date / Time amoxicillin [From Augmentin] Allergy Unknown Verified 02/16/20 09:34 clavulanic acid Allergy Unknown Verified 02/16/20 09:34 [From Augmentin] levofloxacin [From Levaquin] Allergy Unknown Verified 02/16/20 09:34 losartan Allergy Unknown Verified 02/16/20 09:34 moxifloxacin HCl Allergy Rash/Hives, Verified 02/16/20 09:34 [From Avelox] SWELLING nitrofurantoin Allergy Rash/Hives Verified 02/16/20 09:34 hydrocodone bitartrate AdvReac Nausea & Verified 02/16/20 09:34 [From Lortab] Vomiting simvastatin AdvReac muscle pain Verified 02/16/20 09:34 Eyzltkv-Ubh-Wgy Reductase AdvReac MUSCLE PAIN Verified 02/16/20 09:34 Inhibitor Review of Systems ROS Statement: Those systems with pertinent positive or pertinent negative responses have been documented in the HPI. ROS Other: All systems not noted in ROS Statement are negative. Past Medical History Past Medical History: Asthma, COPD, GI Bleed, Hyperlipidemia, Hypertension, Osteoarthritis (OA), Pneumonia, Respiratory Disorder Additional Past Medical History / Comment(s): COPD with bullous changes in the upper lobes bilaterally, chronic hypoxic respiratory failure, home oxygen at 2L/NC mostly ATC, recent lower GI bleed, lt arm fx 11/29/18, arthritis in multiple joints, chronic low back pain, herniated lumbar discs, left sided sciatica, diverticulitis, urinary leakage. History of Any Multi-Drug Resistant Organisms: None Reported Past Surgical History: Appendectomy, Bowel Resection, Cholecystectomy, Heart Catheterization, Orthopedic Surgery, Tubal Ligation Additional Past Surgical History / Comment(s): Bronchoscopies/lavages, bowel resection due to diverticulitis 2012, bilat knee arthroscopy, sinus surgery twice, carpal tunnel left wrist, colonoscopies/polypecomies, back injections, left wrist frature with pins placed 12-07-2018 and since removed. Past Anesthesia/Blood Transfusion Reactions: No Reported Reaction Additional Past Anesthesia/Blood Transfusion Reaction / Comment(s): has never received blood Past Psychological History: Anxiety Smoking Status: Former smoker Past Alcohol Use History: None Reported Past Drug Use History: None Reported - Past Family History Mother Family Medical History: Myocardial Infarction ([place]) Additional Family Medical History / Comment(s): Mother of [place] at age 65 yrs. Sister(s) Family Medical History: Cancer Additional Family Medical History / Comment(s): Twin sister had LUNG cancer. Father Family Medical History: Cancer Additional Family Medical History / Comment(s): Father had cancer in his neck. General Exam Limitations: no limitations General appearance: alert, in no apparent distress Head exam: Present: atraumatic, normocephalic, normal inspection Eye exam: Present: normal appearance, PERRL, EOMI. Absent: scleral icterus, conjunctival injection, periorbital swelling ENT exam: Present: normal exam, normal oropharynx, mucous membranes moist, TM's normal bilaterally Neck exam: Present: normal inspection, full ROM. Absent: tenderness, meningismus, lymphadenopathy Respiratory exam: Present: wheezes, decreased breath sounds. Absent: normal lung sounds bilaterally, respiratory distress, rales, rhonchi, stridor Cardiovascular Exam: Present: regular rate, normal rhythm, normal heart sounds. Absent: systolic murmur, diastolic murmur, rubs, gallop, clicks GI/Abdominal exam: Present: soft, normal bowel sounds. Absent: distended, tenderness, guarding, rebound, rigid Course Vital Signs 02/16/20 02/16/20 02/16/20 08:34 09:45 10:06 Temperature 98.1 F Pulse Rate 78 73 Respiratory 18 20 Rate Blood Pressure 141/72 O2 Sat by Pulse 91 L Oximetry 02/16/20 10:19 Temperature Pulse Rate 77 Respiratory Rate Blood Pressure O2 Sat by Pulse Oximetry EKG Findings - EKG Comments: EKG Findings:: EKG performed at 9:11 sinus rhythm with PAC rate of 79, NC 156 QRS 92 QT/QTC 400/458 Medical Decision Making - Medical Decision Making 71-year-old female presented for dyspnea. Patient chest x-ray shows scarring, COPD. Patient has moderate COPD exacerbation. Patient had some improvement after multiple breathing treatments but continued to have dyspnea. Patient will be admitted for further evaluation. - Lab Data Result diagrams: 02/16/20 09:13 02/16/20 09:13 Lab Results 02/16/20 02/16/20 02/16/20 Range/Units 09:13 09:13 09:13 WBC 13.1 H (3.8-10.6) k/uL RBC 5.04 (3.80-5.40) m/uL Hgb 13.6 (11.4-16.0) gm/dL Hct 44.4 (34.0-46.0) % MCV 88.0 (80.0-100.0) fL MCH 27.0 (25.0-35.0) pg MCHC 30.6 L (31.0-37.0) g/dL RDW 15.7 H (11.5-15.5) % Plt Count 339 (150-450) k/uL Neutrophils % 69 % Lymphocytes % 15 % Monocytes % 7 % Eosinophils % 6 % Basophils % 1 % Neutrophils # 9.0 H (1.3-7.7) k/uL Lymphocytes # 1.9 (1.0-4.8) k/uL Monocytes # 0.9 (0-1.0) k/uL Eosinophils # 0.8 H (0-0.7) k/uL Basophils # 0.1 (0-0.2) k/uL Hypochromasia Slight PT 10.1 (9.0-12.0) sec INR 1.0 (<1.2) APTT 21.7 L (22.0-30.0) sec Sodium 139 (137-145) mmol/L Potassium 3.4 L (3.5-5.1) mmol/L Chloride 102 (98-107) mmol/L Carbon Dioxide 26 (22-30) mmol/L Anion Gap 11 mmol/L BUN 13 (7-17) mg/dL Creatinine 0.61 (0.52-1.04) mg/dL Est GFR (CKD-EPI)AfAm >90 (>60 ml/min/1.73 sqM) Est GFR (CKD-EPI)NonAf 87 (>60 ml/min/1.73 sqM) Glucose 99 (74-99) mg/dL Plasma Lactic Acid Carlos (0.7-2.0) mmol/L Calcium 9.5 (8.4-10.2) mg/dL Magnesium 1.9 (1.6-2.3) mg/dL Total Bilirubin 0.5 (0.2-1.3) mg/dL AST 28 (14-36) U/L ALT 21 (4-34) U/L Alkaline Phosphatase 77 (38-126) U/L Troponin I (0.000-0.034) ng/mL NT-Pro-B Natriuret Pep pg/mL Total Protein 7.3 (6.3-8.2) g/dL Albumin 4.2 (3.5-5.0) g/dL Coronavirus (PCR) (Not Detectd) 02/16/20 02/16/20 02/16/20 Range/Units 09:13 09:13 09:13 WBC (3.8-10.6) k/uL RBC (3.80-5.40) m/uL Hgb (11.4-16.0) gm/dL Hct (34.0-46.0) % MCV (80.0-100.0) fL MCH (25.0-35.0) pg MCHC (31.0-37.0) g/dL RDW (11.5-15.5) % Plt Count (150-450) k/uL Neutrophils % % Lymphocytes % % Monocytes % % Eosinophils % % Basophils % % Neutrophils # (1.3-7.7) k/uL Lymphocytes # (1.0-4.8) k/uL Monocytes # (0-1.0) k/uL Eosinophils # (0-0.7) k/uL Basophils # (0-0.2) k/uL Hypochromasia PT (9.0-12.0) sec INR (<1.2) APTT (22.0-30.0) sec Sodium (137-145) mmol/L Potassium (3.5-5.1) mmol/L Chloride (98-107) mmol/L Carbon Dioxide (22-30) mmol/L Anion Gap mmol/L BUN (7-17) mg/dL Creatinine (0.52-1.04) mg/dL Est GFR (CKD-EPI)AfAm (>60 ml/min/1.73 sqM) Est GFR (CKD-EPI)NonAf (>60 ml/min/1.73 sqM) Glucose (74-99) mg/dL Plasma Lactic Acid Carlos 1.5 (0.7-2.0) mmol/L Calcium (8.4-10.2) mg/dL Magnesium (1.6-2.3) mg/dL Total Bilirubin (0.2-1.3) mg/dL AST (14-36) U/L ALT (4-34) U/L Alkaline Phosphatase (38-126) U/L Troponin I <0.012 (0.000-0.034) ng/mL NT-Pro-B Natriuret Pep 128 pg/mL Total Protein (6.3-8.2) g/dL Albumin (3.5-5.0) g/dL Coronavirus (PCR) (Not Detectd) 02/16/20 Range/Units 09:30 WBC (3.8-10.6) k/uL RBC (3.80-5.40) m/uL Hgb (11.4-16.0) gm/dL Hct (34.0-46.0) % MCV (80.0-100.0) fL MCH (25.0-35.0) pg MCHC (31.0-37.0) g/dL RDW (11.5-15.5) % Plt Count (150-450) k/uL Neutrophils % % Lymphocytes % % Monocytes % % Eosinophils % % Basophils % % Neutrophils # (1.3-7.7) k/uL Lymphocytes # (1.0-4.8) k/uL Monocytes # (0-1.0) k/uL Eosinophils # (0-0.7) k/uL Basophils # (0-0.2) k/uL Hypochromasia PT (9.0-12.0) sec INR (<1.2) APTT (22.0-30.0) sec Sodium (137-145) mmol/L Potassium (3.5-5.1) mmol/L Chloride (98-107) mmol/L Carbon Dioxide (22-30) mmol/L Anion Gap mmol/L BUN (7-17) mg/dL Creatinine (0.52-1.04) mg/dL Est GFR (CKD-EPI)AfAm (>60 ml/min/1.73 sqM) Est GFR (CKD-EPI)NonAf (>60 ml/min/1.73 sqM) Glucose (74-99) mg/dL Plasma Lactic Acid Carlos (0.7-2.0) mmol/L Calcium (8.4-10.2) mg/dL Magnesium (1.6-2.3) mg/dL Total Bilirubin (0.2-1.3) mg/dL AST (14-36) U/L ALT (4-34) U/L Alkaline Phosphatase (38-126) U/L Troponin I (0.000-0.034) ng/mL NT-Pro-B Natriuret Pep pg/mL Total Protein (6.3-8.2) g/dL Albumin (3.5-5.0) g/dL Coronavirus (PCR) Not Detected (Not Detectd) Disposition Clinical Impression: COPD with acute exacerbation Disposition: ADMITTED IP TO THIS HOSP Condition: Fair Referrals: Neptali Ariza DO [Primary Care Provider] - 1-2 days
[2020-02-16 09:16] LABS: Basophils # (A) 0.1 k/uL (0-0.2); Basophils % (A) 1 %; Eosinophils # (A) 0.8 k/uL (0-0.7); Eosinophils % (A) 6 %; HCT 44.4 % (34.0-46.0); HGB 13.6 gm/dL (11.4-16.0); Hypochromasia Slight; Lymphocytes # (A) 1.9 k/uL (1.0-4.8); Lymphocytes % (A) 15 %; MCHC 30.6 g/dL (31.0-37.0); Mean Platelet Volume 7.9; Monocytes # (A) 0.9 k/uL (0-1.0); Monocytes % (A) 7 %; Neutrophils % (A) 69 %; Platelet Count 339 k/uL (150-450); RBC 5.04 m/uL (3.80-5.40); RDW 15.7 % (11.5-15.5); WBC 13.1 k/uL (3.8-10.6)
[2020-02-16 09:26] LABS: Prothrombin Time 10.1 sec (9.0-12.0)
[2020-02-16 09:32] LABS: ALT 21 U/L (4-34); AST 28 U/L (14-36); African American GFR (CKD) >90 (>60 ml/min/1.73 sqM); Albumin 4.2 g/dL (3.5-5.0); Alkaline Phosphatase 77 U/L (38-126); Anion Gap 11 mmol/L; Blood Urea Nitrogen 13 mg/dL (7-17); Calcium 9.5 mg/dL (8.4-10.2); Carbon Dioxide 26 mmol/L (22-30); Chloride 102 mmol/L (98-107); Glucose 99 mg/dL (74-99); Magnesium 1.9 mg/dL (1.6-2.3); Non-African American GFR(CKD) 87 (>60 ml/min/1.73 sqM); Potassium 3.4 mmol/L (3.5-5.1); Sodium 139 mmol/L (137-145); Total Bilirubin 0.5 mg/dL (0.2-1.3); Total Protein 7.3 g/dL (6.3-8.2)
--- NOTE | 2020-02-16 09:33 | XR ---
EXAMINATION TYPE: XR chest 2V DATE OF EXAM: 02/16/2020 HISTORY: difficulty breathing. REFERENCE: Previous study dated 10/21/2019. FINDINGS: Lung lines are prominent. The heart is upper limits of normal in size. There is some scarri ng in the right apex. There is some scarring or atelectasis at the left lung base.. IMPRESSION: 1. COPD. 2. RIGHT APICAL SCARRING. 3. SCARRING VERSUS ATELECTASIS, LEFT LUNG BASE.
[2020-02-16] MEDS ORDERED: methylPREDNISolone SOD SUCCI 125 MG/2 ML VIAL IV STA (09:34)
[2020-02-16] MEDS ORDERED: IPRATROPIUM-ALBUTEROL 3 ML NEB INHALATION STA (09:34)
[2020-02-16 09:41] LABS: Partial Thromboplastin Time 21.7 sec (22.0-30.0)
[2020-02-16] MEDS ORDERED: ALBUTEROL NEBULIZED 2.5 MG/3 ML INHALATION PRN (10:32)
[2020-02-16] MEDS: AZITHROMYCIN 500 MG TAB PO SCH (11:09)
[2020-02-16] MEDS: methylPREDNISolone SOD SUCCI 125 MG/2 ML VIAL IV SCH ×2 (13:42→17:23)
[2020-02-16] MEDS ORDERED: DICYCLOMINE 10 MG CAP PO PRN (14:06)
--- NOTE | 2020-02-16 14:36 | P.HPIM ---
History of Present Illness H&P Date: 02/16/20 Chief Complaint: Difficulty in breathing Ms. Trammell is a 79-year-old female with a past medical history of COPD, hypertension, hyperlipidemia, GI bleed, multiple joint osteoarthritis coming into the hospital with a chief complaint of difficulty in breathing that has been going on for 2 days. She follows with Dr. Sarabia as outpatient. Patient states that she uses 2 L of oxygen at home, went up on her dose up to 4 L but she was still feeling short of breath and so coming into the emergency. Patient states that her cough is worse along with increased phlegm which is yellow in color. Patient denies having any fevers, chills or rigors. Patient states that she had a urinary tract infection recently and was given Bactrim but did not help her, so she was put on amoxicillin. She completed her antibiotic course on . Patient states that initially she had hematuria, after the antibiotics the hematuria is resolved but her urine is still cloudy. She complains of mild discomfort in the suprapubic area. She denies having any low back pain, radiating to the groin. Patient denies having any exposure to coronavirus patients. Patient denies having any nausea vomiting or abdominal pain. No diarrhea or constipation. In the emergency room patient had chest x-ray done which was showing COPD, right apical scarring and atelectasis of the left lung base. EKG done showing sinus rhythm with PACs. On reviewing her labs she has a white count of 13.5 hemoglob in at 13.6 sodium 139 palpitations 3.4 creatinine 0.61. Coronavirus no detected. Patient was given a dose of steroids, breathing treatments and started on azithromycin to be admitted to the general medical floors. Review of Systems REVIEW OF SYSTEMS: PSYCH: No anxiety or depression NEURO:No c/o weakness of the extremties, No facial droop, No speech abnormalities. VASCULAR: Peripheral nervous system within the normal limits no edema HEMATOLOGIC: No history of easy bleeding and bruising . No recent infections . RESPIRATORY: As per HPI IMMUNE: Recent urinary tract infection INTEGUMENT: no rashes OPHTHALMOLOGIC: No blurry vision and no eye discharge : Initially had hematuria now complains of cloudy urine. Has mild suprapubic pain. CARDIAC: No chest pain , shortness of breath , paroxysmal nocturnal dyspnea MUSCULOSKELETAL : No Aches or pains in the joints or muscles. GI: No abdominal pain, Nausea or vomiting. No constipation or diarrhea. All 13 review of systems are negative except for the ones mentioned above. Past Medical History Past Medical History: Asthma, COPD, GI Bleed, Hyperlipidemia, Hypertension, Ost eoarthritis (OA), Pneumonia, Respiratory Disorder Additional Past Medical History / Comment(s): COPD with bullous changes in the upper lobes bilaterally, chronic hypoxic respiratory failure, home oxygen at 2L/NC mostly ATC, recent lower GI bleed, lt arm fx 11/29/18, arthritis in multiple joints, chronic low back pain, herniated lumbar discs, left sided sciatica, diverticulitis, urinary leakage. History of Any Multi-Drug Resistant Organisms: None Reported Past Surgical History: Appendectomy, Bowel Resection, Cholecystectomy, Heart Catheterization, Orthopedic Surgery, Tubal Ligation Additional Past Surgical History / Comment(s): Bronchoscopies/lavages, bowel resection due to diverticulitis 2012, bilat knee arthroscopy, sinus surgery twice, carpal tunnel left wrist, colonoscopies/polypecomies, back injections, left wrist frature with pins placed 12-07-2018 and since removed. Past Anesthesia/Blood Transfusion Reactions: No Reported Reaction Additional Past Anesthesia/Blood Transfusion Reaction / Comment(s): has never received blood Past Psychological History: Anxiety Smoking Status: Former smoker Past Alcohol Use History: None Reported Past Drug Use History: None Reported - Past Family History Mother Family Medical History: Myocardial Infarction ([place]) Additional Family Medical History / Comment(s): Mother of [place] at age 65 yrs. Sister(s) Family Medical History: Cancer Additional Family Medical History / Comment(s): Twin sister had LUNG cancer. Father Family Medical History: Cancer Additional Family Medical History / Comment(s): Father had cancer in his neck. Medications and Allergies Home Medications Medication Instructions Recorded Confirmed Type Metoprolol Succinate [Toprol XL] 12.5 mg PO DAILY 09/25/17 02/16/20 History amLODIPine [Norvasc] 5 mg PO DAILY 09/25/17 02/16/20 History Budesonide-Formot 160-4.5 Mcg 2 puff INHALATION RT-BID 02/09/18 02/16/20 History [Symbicort 160-4.5 Mcg Inhaler] Hydrochlorothiazide [Hydrodiuril] 25 mg PO DAILY 06/04/19 02/16/20 History Acetaminophen Tab [Tylenol Tab] 1,000 mg PO Q6HR PRN 02/16/20 02/16/20 History Albuterol Sulfate [Ventolin HFA] 2 puff INHALATION RT-Q6H PRN 02/16/20 02/16/20 History Cholecalciferol [Vitamin D3 (25 5,000 unit PO DAILY 02/16/20 02/16/20 History Mcg = 1000 Iu)] Dicyclomine HCl 10 mg PO Q8H PRN 02/16/20 02/16/20 History Lovastatin [Mevacor] 10 mg PO HS 02/16/20 02/16/20 History Allergies Allergy/AdvReac Type Severity Reaction Status Date / Time amoxicillin [From Augmentin] Allergy Unknown Verified 02/16/20 09:34 clavulanic acid Allergy Unknown Verified 02/16/20 09:34 [From Augmentin] levofloxacin [From Levaquin] Allergy Unknown Verified 02/16/20 09:34 losartan Allergy Unknown Verified 02/16/20 09:34 moxifloxacin HCl Allergy Rash/Hives, Verified 02/16/20 09:34 [From Avelox] SWELLING nitrofurantoin Allergy Rash/Hives Verified 02/16/20 09:34 hydrocodone bitartrate AdvReac Nausea & Verified 02/16/20 09:34 [From Lortab] Vomiting simvastatin AdvReac muscle pain Verified 02/16/20 09:34 Xyukqos-Fvl-Gdp Reductase AdvReac MUSCLE PAIN Verified 02/16/20 09:34 Inhibitor Physical Exam Vitals: Vital Signs Temp Pulse Resp BP Pulse Ox 02/16/20 13:42 72 20 132/65 91 L 02/16/20 13:00 72 20 132/65 91 L 02/16/20 12:00 20 02/16/20 11:38 20 149/70 02/16/20 10:38 20 138/86 02/16/20 10:19 77 02/16/20 10:06 73 02/16/20 09:45 20 02/16/20 09:38 77 20 130/88 02/16/20 08:38 20 02/16/20 08:34 98.1 F 78 18 141/72 91 L Intake and Output 02/15/20 02/16/20 02/16/20 22:59 06:59 14:59 Other: Weight 68.039 kg PHYSICAL EXAM GEN. APPEARANCE: alert, in no apparent distress HEAD EXAM: atraumatic, normocephalic, normal inspection EYE EXAM: No pallor. No icterus. ENT EXAM: Mucous members and moist. NECK EXAM: No JVD. No thyromegaly. RESPIRATORY EXAM: Decreased breath sounds in all lung schulz. No crackles or wheezing. CARDIOVASCULAR EXAM: S1 and S2. No additional sounds. GI/ABDOMINAL EXAM: Abdomen is soft nontender. Normal bowel sounds. No guarding or rigidity. Mild suprapubic tenderness. No CVA tenderness. EXTREMITIES EXAM: No edema. NEUROLOGICAL EXAM: alert, oriented X3, no focal neurological deficits. PSYCHIATRIC EXAM: normal affect, normal mood SKIN EXAM: warm, dry, intact, normal color. Results CBC & Chem 7: 02/16/20 09:13 02/16/20 09:13 Labs: Abnormal Lab Results - Last 24 Hours (Table) 02/16/20 02/16/20 02/16/20 Range/Units 09:13 09:13 09:13 WBC 13.1 H (3.8-10.6) k/uL MCHC 30.6 L (31.0-37.0) g/dL RDW 15.7 H (11.5-15.5) % Neutrophils # 9.0 H (1.3-7.7) k/uL Eosinophils # 0.8 H (0-0.7) k/uL APTT 21.7 L (22.0-30.0) sec Potassium 3.4 L (3.5-5.1) mmol/L Assessment and Plan Assessment: ASSESSMENT Acute COPD exacerbation Recent urinary tract infection History of GI bleed Hypertension Hyperlipidemia Multiple joint osteoarthritis Herniated lumbar disc Left-sided sciatica pain History of diverticulitis History of left wrist fracture History of left hip replacement Former smoker PLAN: Patient has been started on IV steroids and breathing treatments along with empiric azithromycin. Patient states that she was recently treated for a UTI with Bactrim and amoxicillin and still complains of cloudy urine with mild suprapubic pain. She received a dose of Ceftriaxone in the ED. Will get urine analysis with reflex urine cultures. Patient has been restarted on her home medications. Lovenox for DVT prophylaxis. Further recommendations to follow depending on the progress of the patient.
[2020-02-16] MEDS: METOPROLOL SUCCINATE (ER) 25 MG TAB.ER.24H PO SCH (14:39)
[2020-02-16] MEDS: amLODIPine 5 MG TAB PO SCH (14:39)
[2020-02-16] MEDS: HYDROCHLOROTHIAZIDE 25 MG TAB PO SCH (14:39)
[2020-02-16 15:01] LABS: Appearance,Urine Clear (Clear); Bacteria,Urine Moderate /hpf; Bilirubin,Urine Negative (Negative); Blood,Urine Negative (Negative); Color,Urine Light Yellow; Glucose,Urine (UA) Negative (Negative); Ketones,Urine Negative (Negative); Leukocyte Esterase,Urine Moderate (Negative); Mucus,Urine Moderate /hpf; Nitrite,Urine Positive (Negative); Protein,Urine Negative (Negative); RBC,Urine <1 /hpf (0-5); Specific Gravity,Urine 1.007 (1.001-1.035); Squamous Epithelial Cell,Urine <1 /hpf (0-4); Urobilinogen,Urine <2.0 mg/dL (<2.0); WBC,Urine 9 /hpf (0-5)
[2020-02-16] MEDS: IPRATROPIUM-ALBUTEROL 3 ML NEB INHALATION SCH ×3 (16:32→20:35)
[2020-02-16] MEDS: SYMBICORT 160-4.5 MCG INHALER INHALATION SCH (20:35)
[2020-02-16] MEDS: guaiFENesin-DM 100-10MG/5ML 10 ML CUP PO PRN (21:13)
[2020-02-16] MEDS: LOVASTATIN PO SCH (21:21)
[2020-02-17] MEDS: methylPREDNISolone SOD SUCCI 125 MG/2 ML VIAL IV SCH ×5 (00:38→23:32)
[2020-02-17] MEDS: guaiFENesin-DM 100-10MG/5ML 10 ML CUP PO PRN ×2 (05:40→17:49)
[2020-02-17] MEDS: SYMBICORT 160-4.5 MCG INHALER INHALATION SCH ×2 (07:28→20:03)
[2020-02-17] MEDS: IPRATROPIUM-ALBUTEROL 3 ML NEB INHALATION SCH ×4 (07:28→20:03)
[2020-02-17] MEDS: AZITHROMYCIN 500 MG TAB PO SCH (08:18)
[2020-02-17] MEDS: amLODIPine 5 MG TAB PO SCH (08:18)
[2020-02-17] MEDS: HYDROCHLOROTHIAZIDE 25 MG TAB PO SCH (08:18)
[2020-02-17] MEDS: ENOXAPARIN 40 MG/0.4 ML SYRINGE SQ SCH (08:18)
[2020-02-17] MEDS: METOPROLOL SUCCINATE (ER) 25 MG TAB.ER.24H PO SCH (08:18)
--- NOTE | 2020-02-17 12:00 | P.CNPUL ---
History of Present Illness Consult date: 02/17/20 Requesting physician: Kaur Morris Reason for consult: dyspnea, COPD Chief complaint: Shortness of breath, cough, congestion History of present illness: This is a very pleasant 79-year-old female patient who follows with Dr. Ariza as her primary care provider. She has a history of hypertension, hyperlipidemia, osteoarthritis, diverticulitis, bowel resection, osteoarthritis. She also has a history of previous tobacco dependence and chronic obstructive pulmonary disease with chronic hypoxic respiratory failure and on home oxygen at [address] Sarabia in our office for the same. She has an FEV1 value of 68% of predicted. She presented to the emergency room yesterday with complaints of increasing shortness of breath cough and congestion with yellow productive sputum. She had recently finished antibiotics in the form of Bactrim along with doxycycline for a UTI. She denied any sick contacts. Chest x-ray shows evidence of COPD with right apical scarring. There is some scarring versus atelectasis of the left lung base. Otherwise clear. She's been afebrile. White count 13.1. Hemoglobin 13.6. Sodium 139. Potassium 3.4. Chloride 102. Carbon dioxide 26. Creatinine 0.61. Troponin negative times one. ProBNP 128. Ayala virus not detected. Urinalysis positive for nitrates and the PVCs. She is seen in consultation. She is up ambulating in her room. Awake and alert in no acute distress. Stating she is short of breath with exertion. Some loose nonproductive cough. No fever or chills. She's been initiated on DuoNeb inhalations, Symbicort, IV Solu-Medrol. Antibiotics in the form of azithromycin. Lovenox for DVT prophylaxis. Review of Systems REVIEW OF SYSTEMS: CONSTITUTIONAL: Denies any recent significant weight loss or weight gain. EYES: Denies change in vision. EARS, NOSE, MOUTH, THROAT: Denies headaches, denies sore throat. CARDIOVASCULAR: Denies chest pain, palpitations or syncopal episodes. RESPIRATORY: Positive for shortness of breath, cough, congestion no hemoptysis. GASTROINTESTINAL: Denies change in appetite, denies abdominal pain GENITOURINARY: Positive for recent infections. MUSKULOSKELETAL: Denies pain, denies swelling. INTEGUMENTARY: Denies rash, denies eczema. NEUROLOGICAL: Denies recent memory loss, no recent seizure activity. PSYCHIATRIC: Denies anxiety, denies depression. HEMATOLOGIC/LYMPHATIC: Denies anemia, denies enlarged lymph nodes. Past Medical History Past Medical History: Asthma, COPD, GI Bleed, Hyperlipidemia, Hypertension, Osteoarthritis (OA), Pneumonia, Respiratory Disorder Additional Past Medical History / Comment(s): COPD with bullous changes in the upper lobes bilaterally, chronic hypoxic respiratory failure, home oxygen at 2L/NC mostly ATC, recent lower GI bleed, lt arm fx 11/29/18, arthritis in multiple joints, chronic low back pain, herniated lumbar discs, left sided sciatica, diverticulitis, urinary leakage. History of Any Multi-Drug Resistant Organisms: None Reported Past Surgical History: Appendectomy, Bowel Resection, Cholecystectomy, Heart Catheterization, Orthopedic Surgery, Tubal Ligation Additional Past Surgical History / Comment(s): Bronchoscopies/lavages, bowel resection due to diverticulitis 2012, bilat knee arthroscopy, sinus surgery twice, carpal tunnel left wrist, colonoscopies/polypecomies, back injections, left wrist frature with pins placed 12-07-2018 and since removed. Past Anesthesia/Blood Transfusion Reactions: No Reported Reaction Additional Past Anesthesia/Blood Transfusion Reaction / Comment(s): has never received blood Past Psychological History: Anxiety Smoking Status: Former smoker Past Alcohol Use History: None Reported Past Drug Use History: None Reported - Past Family History Mother Family Medical History: Myocardial Infarction (HI) Additional Family Medical History / Comment(s): Mother of HI at age 65 yrs. Sister(s) Family Medical History: Cancer Additional Family Medical History / Comment(s): Twin sister had LUNG cancer. Father Family Medical History: Cancer Additional Family Medical History / Comment(s): Father had cancer in his neck. Medications and Allergies Home Medications Medication Instructions Recorded Confirmed Type Metoprolol Succinate [Toprol XL] 12.5 mg PO DAILY 09/25/17 02/16/20 History amLODIPine [Norvasc] 5 mg PO DAILY 09/25/17 02/16/20 History Budesonide-Formot 160-4.5 Mcg 2 puff INHALATION RT-BID 02/09/18 02/16/20 History [Symbicort 160-4.5 Mcg Inhaler] Hydrochlorothiazide [Hydrodiuril] 25 mg PO DAILY 06/04/19 02/16/20 History Acetaminophen Tab [Tylenol Tab] 1,000 mg PO Q6HR PRN 02/16/20 02/16/20 History Albuterol Sulfate [Ventolin HFA] 2 puff INHALATION RT-Q6H PRN 02/16/20 02/16/20 History Cholecalciferol [Vitamin D3 (25 5,000 unit PO DAILY 02/16/20 02/16/20 History Mcg = 1000 Iu)] Dicyclomine HCl 10 mg PO Q8H PRN 02/16/20 02/16/20 History Lovastatin [Mevacor] 10 mg PO HS 02/16/20 02/16/20 History Allergies Allergy/AdvReac Type Severity Reaction Status Date / Time amoxicillin [From Augmentin] Allergy Unknown Verified 02/16/20 09:34 clavulanic acid Allergy Unknown Verified 02/16/20 09:34 [From Augmentin] levofloxacin [From Levaquin] Allergy Unknown Verified 02/16/20 09:34 losartan Allergy Unknown Verified 02/16/20 09:34 moxifloxacin HCl Allergy Rash/Hives, Verified 02/16/20 09:34 [From Avelox] SWELLING nitrofurantoin Allergy Rash/Hives Verified 02/16/20 09:34 hydrocodone bitartrate AdvReac Nausea & Verified 02/16/20 09:34 [From Lortab] Vomiting simvastatin AdvReac muscle pain Verified 02/16/20 09:34 Rewknjg-Rkj-Uoa Reductase AdvReac MUSCLE PAIN Verified 02/16/20 09:34 Inhibitor Physical Exam Vitals: Vital Signs Temp Pulse Pulse Resp BP BP Pulse Ox 02/17/20 11:41 82 02/17/20 11:27 78 02/17/20 08:20 89 18 02/17/20 07:42 80 02/17/20 07:32 76 02/17/20 07:00 98.0 F 89 18 172/72 93 L 02/17/20 02:15 97.9 F 89 18 149/65 92 L 02/16/20 20:47 84 02/16/20 20:37 82 02/16/20 19:28 97.7 F 86 18 135/68 92 L 02/16/20 16:46 64 02/16/20 16:36 62 92 L 02/16/20 14:56 98.3 F 86 20 147/78 90 L 02/16/20 13:42 72 20 132/65 91 L 02/16/20 13:00 72 20 132/65 91 L 02/16/20 12:00 20 Intake and Output 02/16/20 02/17/20 02/17/20 22:59 06:59 14:59 Intake Total 296 Balance 296 Intake: Oral 296 Other: # Bowel Movements 0 0 GENERAL EXAM: Alert, active, pleasant 79-year-old female patient, on 2 L nasal cannula, comfortable in no apparent distress. HEAD: Normocephalic. EYES: Normal reaction of pupils, equal size. NOSE: Clear with pink turbinates. THROAT: No erythema or exudates. NECK: No masses, no JVD. CHEST: No chest wall deformity. LUNGS: Equal air entry with bilateral end expiratory wheeze, few scattered rhonchi. CVS: S1 and S2 normal with no audible murmur, regular rhythm. ABDOMEN: No hepatosplenomegaly, normal bowel sounds, no guarding or rigidity. SPINE: No scoliosis or deformity SKIN: No rashes CENTRAL NERVOUS SYSTEM: No focal deficits, tone is normal in all 4 extremities. EXTREMITIES: There is no peripheral edema. No clubbing, no cyanosis. Peripheral pulses are intact. Results - Laboratory Findings CBC and BMP: 02/16/20 09:13 02/16/20 09:13 PT/INR, D-dimer PT 10.1 sec (9.0-12.0) 02/16/20 09:13 INR 1.0 (<1.2) 02/16/20 09:13 Abnormal lab findings: Abnormal Labs 02/16/20 02/16/20 02/16/20 09:13 09:13 09:13 WBC 13.1 H MCHC 30.6 L RDW 15.7 H Neutrophils # 9.0 H Eosinophils # 0.8 H APTT 21.7 L Potassium 3.4 L Urine Nitrite Ur Leukocyte Esterase Urine WBC Urine Bacteria Urine Mucus 02/16/20 14:35 WBC MCHC RDW Neutrophils # Eosinophils # APTT Potassium Urine Nitrite Positive H Ur Leukocyte Esterase Moderate H Urine WBC 9 H Urine Bacteria Moderate H Urine Mucus Moderate H - Diagnostic Findings Chest x-ray: image reviewed Assessment and Plan Assessment: Acute exacerbation of chronic obstructive pulmonary disease Acute on chronic hypoxic respiratory failure secondary to above Remote history of chronic tobacco dependence Urinary tract infection, recurrent History of pulmonary nodules including a 5 mm right midlung pulmonary nodule being followed in the outpatient setting last CT 12/03/2019 Hypertension Hyperlipidemia Osteoarthritis History of twin sister with lung cancer Plan The patient was seen and evaluated by Dr. Barragan Continue Denilson Melton's, IV Solu-Medrol Obtain sputum sample Continue azithromycin Await urine culture Follow-up computed tomography scan in May 2020 We'll continue to follow I, the cosigning physician, performed a history & physical examination of the patient. Lungs sounds with bilateral end expiratory wheeze, few scattered rhonchi. Maintaining good O2 saturations in the 90s on 2 L/m per nasal cannula. I discussed the assessment and plan of care with my nurse practitioner, Malgorzata Dowell. I attest to the above consultation as dictated by her. Time with Patient: Greater than 30
--- NOTE | 2020-02-17 13:05 | P.PN ---
Subjective Progress Note Date: 02/17/20 Principal diagnosis: Acute COPD exacerbation Ms. Trammell is a 79-year-old female with a past medical history of COPD, hypertension, hyperlipidemia, GI bleed, multiple joint osteoarthritis coming into the hospital with a chief complaint of difficulty in breathing that has been going on for 2 days. She follows with Dr. Sarabia as outpatient. Patient states that she uses 2 L of oxygen at home, went up on her dose up to 4 L but she was still feeling short of breath and so coming into the emergency. Patient states that her cough is worse along with increased phlegm which is yellow in color. Patient denies having any fevers, chills or rigors. Patient states that she had a urinary tract infection recently and was given Bactrim but did not help her, so she was put on amoxicillin. She completed her antibiotic course on . Patient states that initially she had hematuria, after the antibiotics the hematuria is resolved but her urine is still cloudy. She complains of mild discomfort in the suprapubic area. She denies having any low back pain, radiating to the groin. Patient denies having any exposure to coronavirus patients. Patient denies having any nausea vomiting or abdominal pain. No diarrhea or constipation. In the emergency room patient had chest x-ray done which was showing COPD, right apical scarring and atelectasis of the left lung base. EKG done showing sinus rhythm with PACs. On reviewing her labs she has a white count of 13.5 hemoglobi n at 13.6 sodium 139 palpitations 3.4 creatinine 0.61. Coronavirus no detected. Patient was given a dose of steroids, breathing treatments and started on azithromycin to be admitted to the general medical floors. On 02/17/2020- patient is comfortably sitting in bed appears to be no acute distress. She states that her breathing has improved. She still continues to have some cough. Patient denies having any chest pain or palpitations. She states that her urine is still cloudy and has mild suprapubic tenderness. No fevers chills or rigors overnight. Patient denies having any abdominal pain nausea vomiting or diarrhea. On reviewing her vitals temperature of 98.3, heart rate around 70s, respiratory rate 18, saturating at 92% on 2 L of nasal cannula, blood pressure 172/72 . Urine analysis done yesterday positive for nitrites and moderate leukocyte esterase and moderate bacteria with 9 WBCs. Active Medications Albuterol Sulfate (Ventolin Nebulized) 2.5 mg INHALATION Q2HR PRN PRN Reason: dyspnea Albuterol/Ipratropium (Duoneb 0.5 Mg-3 Mg/3 Ml Soln) 3 ml INHALATION RT-QID [facility] Last Admin: 02/17/20 11:21 Dose: 3 ml Documented by: Amlodipine Besylate (Norvasc) 5 mg PO DAILY [facility] Last Admin: 02/17/20 08:18 Dose: 5 mg Documented by: Azithromycin (Zithromax) 500 mg PO DAILY [facility] Last Admin: 02/17/20 08:18 Dose: 500 mg Documented by: Budesonide/Formoterol Fumarate (Symbicort 160-4.5 Mcg Inhaler) 2 puff INHALATION RT-BID [facility] Last Admin: 02/17/20 07:28 Dose: 2 puff Documented by: Dicyclomine HCl (Bentyl) 10 mg PO Q8H PRN PRN Reason: ABDOMINAL PAIN Enoxaparin Sodium (Lovenox) 40 mg SQ DAILY [facility] Last Admin: 02/17/20 08:18 Dose: 40 mg Documented by: Guaifenesin/Dextromethorphan (Robitussin Dm) 10 ml PO Q6H PRN PRN Reason: Cough Last Admin: 02/17/20 05:40 Dose: 10 ml Documented by: Hydrochlorothiazide (Hydrodiuril) 25 mg PO DAILY [facility] Last Admin: 02/17/20 08:18 Dose: 25 mg Documented by: Methylprednisolone Sodium Succinate (Solu-Medrol) 60 mg IV Q6HR [facility] Last Admin: 02/17/20 11:40 Dose: 60 mg Documented by: Metoprolol Succinate (Toprol Xl) 12.5 mg PO DAILY [facility] Last Admin: 02/17/20 08:18 Dose: 12.5 mg Documented by: Lovastatin [Mevacor] 10 mg PO HS [facility] Last Admin: 02/16/20 21:21 Dose: Not Given Documented by: Objective - Vital Signs Vital signs: Vital Signs Temp 98.0 F 02/17/20 07:00 Pulse 82 02/17/20 11:41 Resp 18 02/17/20 08:20 BP 172/72 02/17/20 07:00 Pulse Ox 93 L 02/17/20 07:00 Intake & Output 02/16/20 02/17/20 02/17/20 18:59 06:59 18:59 Intake Total 296 Balance 296 Weight 68.039 kg Intake: Oral 296 Other: # Bowel Movements 0 - Exam PHYSICAL EXAM GEN. APPEARANCE: alert, in no apparent distress HEENT : No pallor. No icterus. PERRLA. RESPIRATORY EXAM: Decreased breath sounds in all lung schulz. No crackles or wheezing. CARDIOVASCULAR EXAM: S1 and S2. No additional sounds. GI/ABDOMINAL EXAM: Abdomen is soft nontender. Normal bowel sounds. No guarding or rigidity. Mild suprapubic tenderness. No CVA tenderness. EXTREMITIES EXAM: No edema. NEUROLOGICAL EXAM: alert, oriented X3, no focal neurological deficits. PSYCHIATRIC EXAM: normal affect, normal mood - Labs CBC & Chem 7: 02/16/20 09:13 02/16/20 09:13 Labs: Abnormal Lab Results - Last 24 Hours (Table) 02/16/20 Range/Units 14:35 Urine Nitrite Positive H (Negative) Ur Leukocyte Esterase Moderate H (Negative) Urine WBC 9 H (0-5) /hpf Urine Bacteria Moderate H (None) /hpf Urine Mucus Moderate H (None) /hpf Microbiology - Last 24 Hours (Table) 02/16/20 10:38 Blood Culture - Preliminary Blood No Growth after 24 hours 02/16/20 02:26 Urine Culture - Preliminary Urine,Clean Catch Assessment and Plan Assessment: ASSESSMENT Acute COPD exacerbation Urinary tract infection History of GI bleed Hypertension Hyperlipidemia Multiple joint osteoarthritis Herniated lumbar disc Left-sided sciatica pain History of diverticulitis History of left wrist fracture History of left hip replacement Former smoker PLAN: Patient has been started on IV steroids and breathing treatments along with empiric azithromycin. Patient states that she was recently treated for a UTI with Bactrim and amoxicillin and still complains of cloudy urine with mild suprapubic pain. She received a dose of Ceftriaxone in the ED, will continue with that until the cultures are back. Patient has been restarted on her home medications. Lovenox for DVT prophylaxis. Further recommendations to follow depending on the progress of the patient.
[2020-02-17 20:32] LABS: Glucose,Whole Blood 194 mg/dL (75-99)
[2020-02-17] MEDS: LOVASTATIN PO SCH (21:30)
[2020-02-17] MEDS ORDERED: ALPRAZolam 0.5 MG TAB PO STA (23:21)
[2020-02-18] MEDS ORDERED: ALPRAZolam 0.5 MG TAB PO PRN (00:11)
[2020-02-18] MEDS: methylPREDNISolone SOD SUCCI 125 MG/2 ML VIAL IV SCH ×2 (05:10→12:59)
[2020-02-18 07:12] LABS: Glucose,Whole Blood 130 mg/dL (75-99)
[2020-02-18] MEDS: IPRATROPIUM-ALBUTEROL 3 ML NEB INHALATION SCH ×2 (07:19→11:09)
[2020-02-18] MEDS: SYMBICORT 160-4.5 MCG INHALER INHALATION SCH (07:19)
[2020-02-18 07:35] LABS: Basophils % (A) 0 %; Eosinophils % (A) 0 %; HCT 42.6 % (34.0-46.0); HGB 13.3 gm/dL (11.4-16.0); Hypochromasia Slight; Lymphocytes # (A) 0.8 k/uL (1.0-4.8); Lymphocytes % (A) 6 %; MCH 27.5 pg (25.0-35.0); MCHC 31.1 g/dL (31.0-37.0); MCV 88.5 fL (80.0-100.0); Mean Platelet Volume 8.1; Monocytes # (A) 0.4 k/uL (0-1.0); Monocytes % (A) 3 %; Neutrophils # (A) 12.5 k/uL (1.3-7.7); Neutrophils % (A) 90 %; Platelet Count 417 k/uL (150-450); RBC 4.82 m/uL (3.80-5.40); RDW 15.6 % (11.5-15.5); WBC 13.9 k/uL (3.8-10.6)
[2020-02-18 07:38] LABS: African American GFR (CKD) >90 (>60 ml/min/1.73 sqM); Anion Gap 10 mmol/L; Blood Urea Nitrogen 19 mg/dL (7-17); Calcium 9.4 mg/dL (8.4-10.2); Carbon Dioxide 26 mmol/L (22-30); Chloride 103 mmol/L (98-107); Glucose 137 mg/dL (74-99); Non-African American GFR(CKD) >90 (>60 ml/min/1.73 sqM); Sodium 139 mmol/L (137-145)
[2020-02-18] MEDS: AZITHROMYCIN 500 MG TAB PO SCH (08:13)
[2020-02-18] MEDS: HYDROCHLOROTHIAZIDE 25 MG TAB PO SCH (08:13)
[2020-02-18] MEDS: METOPROLOL SUCCINATE (ER) 25 MG TAB.ER.24H PO SCH (08:13)
[2020-02-18] MEDS: amLODIPine 5 MG TAB PO SCH (08:13)
[2020-02-18] MEDS: ENOXAPARIN 40 MG/0.4 ML SYRINGE SQ SCH (08:14)
[2020-02-18 08:17] VITALS: BP 151/76; RESP 14; TEMP 97.8
[2020-02-18 11:12] VITALS: PULSE 94
[2020-02-18 11:33] LABS: Glucose,Whole Blood 127 mg/dL (75-99)
[2020-02-18] MEDS ORDERED: predniSONE 50 MG TAB PO STA (13:50)
[2020-02-18] MEDS: guaiFENesin-DM 100-10MG/5ML 10 ML CUP PO PRN (13:57)
--- NOTE | 2020-02-18 14:17 | P.PN ---
Subjective Progress Note Date: 02/18/20 Principal diagnosis: Acute exacerbation of chronic obstructive pulmonary disease This is a very pleasant 79-year-old female patient who follows with Dr. Ariza as her primary care provider. She has a history of hypertension, hyperlipidemia, osteoarthritis, diverticulitis, bowel resection, osteoarthritis. She also has a history of previous tobacco dependence and chronic obstructive pulmonary disease with chronic hypoxic respiratory failure and on home oxygen at 2 L and follows with Dr[address] Sarabia in our office for the same. She has an FEV1 value of 68% of predicted. She presented to the emergency room yesterday with complaints of increasing shortness of breath cough and congestion with yellow productive sputum. She had recently finished antibiotics in the form of Bactrim along with doxycycline for a UTI. She denied any sick contacts. Chest x-ray shows evidence of COPD with right apical scarring. There is some scarring versus atelectasis of the left lung base. Otherwise clear. She's been afebrile. White count 13.1. Hemoglobin 13.6. Sodium 139. Potassium 3.4. Chloride 102. Carbon dioxide 26. Creatinine 0.61. Troponin negative times one. ProBNP 128. Ayala virus not detected. Urinalysis positive for nitrates and the PVCs. She is seen in consultation. She is up ambulating in her room. Awake and alert in no acute distress. Stating she is short of breath with exertion. Some loose nonproductive cough. No fever or chills. She's been initiated on DuoNeb inhalations, Symbicort, IV Solu-Medrol. Antibiotics in the form of azithromycin. Lovenox for DVT prophylaxis. The patient is seen today 02/18/2020 in follow-up on the regular medical floor. She is sitting up at the bedside. Awake and alert in no acute distress. She is maintaining O2 saturations in the mid 90s on room air. She's been afebrile. Hemodynamically stable. White count 13.9. Hemoglobin 13.3. Sodium 139. Potassium 4.0. Creatinine 0.53. She remains on Symbicort, DuoNeb's, IV Solu- Medrol. Antibiotics in the form of ceftriaxone and azithromycin. Objective - Vital Signs Vital signs: Vital Signs Temp 97.8 F 02/18/20 07:00 Pulse 94 02/18/20 11:22 Resp 14 02/18/20 07:00 BP 151/76 02/18/20 07:00 Pulse Ox 96 02/18/20 07:00 Intake & Output 02/17/20 02/18/20 02/18/20 18:59 06:59 18:59 Intake Total 296 Balance 296 Intake: Oral 296 Other: # Voids 2 2 3 - Exam GENERAL EXAM: Alert, active, pleasant 79-year-old female patient, on room air, comfortable in no apparent distress. HEAD: Normocephalic. EYES: Normal reaction of pupils, equal size. NOSE: Clear with pink turbinates. THROAT: No erythema or exudates. NECK: No masses, no JVD. CHEST: No chest wall deformity. LUNGS: Equal air entry with bilateral end expiratory wheeze, few scattered rhonchi. CVS: S1 and S2 normal with no audible murmur, regular rhythm. ABDOMEN: No hepatosplenomegaly, normal bowel sounds, no guarding or rigidity. SPINE: No scoliosis or deformity SKIN: No rashes CENTRAL NERVOUS SYSTEM: No focal deficits, tone is normal in all 4 extremities. EXTREMITIES: There is no peripheral edema. No clubbing, no cyanosis. Peripheral pulses are intact. - Labs CBC & Chem 7: 02/18/20 06:47 02/18/20 06:47 Labs: Abnormal Lab Results - Last 24 Hours (Table) 02/17/20 02/18/20 02/18/20 Range/Units 20:31 06:47 06:47 WBC 13.9 H (3.8-10.6) k/uL RDW 15.6 H (11.5-15.5) % Neutrophils # 12.5 H (1.3-7.7) k/uL Lymphocytes # 0.8 L (1.0-4.8) k/uL BUN 19 H (7-17) mg/dL Glucose 137 H (74-99) mg/dL POC Glucose (mg/dL) 194 H (75-99) mg/dL 02/18/20 02/18/20 Range/Units 07:10 11:31 WBC (3.8-10.6) k/uL RDW (11.5-15.5) % Neutrophils # (1.3-7.7) k/uL Lymphocytes # (1.0-4.8) k/uL BUN (7-17) mg/dL Glucose (74-99) mg/dL POC Glucose (mg/dL) 130 H 127 H (75-99) mg/dL Microbiology - Last 24 Hours (Table) 02/16/20 10:38 Blood Culture - Preliminary Blood No Growth after 48 hours 02/16/20 02:26 Urine Culture - Preliminary Urine,Clean Catch Assessment and Plan Assessment: Acute exacerbation of chronic obstructive pulmonary disease Acute on chronic hypoxic respiratory failure secondary to above Remote history of chronic tobacco dependence Urinary tract infection, recurrent History of pulmonary nodules including a 5 mm right midlung pulmonary nodule being followed in the outpatient setting last CT 12/03/2019 Hypertension Hyperlipidemia Osteoarthritis History of twin sister with lung cancer Plan The patient was seen and evaluated by Dr. Barragan Continue the current treatment plan Follow-up computed tomography scan in May 2020 We'll continue to follow I, the cosigning physician, performed a history & physical examination of the patient. Lungs sounds with bilateral end expiratory wheeze, few scattered rhonchi. Maintaining good O2 saturations in the 90s on room air. I discussed the assessment and plan of care with my nurse practitioner, Malgorzata Dowell. I attest to the above note as dictated by her.
--- NOTE | 2020-02-18 22:19 | P.DS ---
Providers Date of admission: 02/16/20 10:33 Expected date of discharge: 02/18/20 Attending physician: Kaur Morris Consults: 02/16/20 10:32 Consult Physician Routine Consulting Provider: Gianluca Sarabia Reason/Comments: COPD Do you want consulting provider notified?: Yes Primary care physician: [facility] [place] Course: Ms. Trammell is a 79-year-old female with a past medical history of COPD, hypertension, hyperlipidemia, GI bleed, multiple joint osteoarthritis coming into the hospital with a chief complaint of difficulty in breathing that has been going on for 2 days. She follows with Dr. Sarabia as outpatient. Patient states that she uses 2 L of oxygen at home, went up on her dose up to 4 L but she was still feeling short of breath and so coming into the emergency. Patient states that her cough is worse along with increased phlegm which is yellow in color. Patient denies having any fevers, chills or rigors. Patient states that she had a urinary tract infection recently and was given Bactrim but did not help her, so she was put on amoxicillin. She completed her antibiotic course on . Patient states that initially she had hematuria, after the antibiotics the hematuria is resolved but her urine is still cloudy. She complains of mild discomfort in the suprapubic area. She denies having any low back pain, radiating to the groin. Patient denies having any exposure to coronavirus patients. Patient denies having any nausea vomiting or abdominal pain. No diarrhea or constipation. In the emergency room patient had chest x-ray done which was showing COPD, right apical scarring and atelectasis of the left lung base. EKG done showing sinus rhythm with PACs. On reviewing her labs she has a white count of 13.5 hemoglobin at 13.6 sodium 139 palpitations 3.4 creatinine 0.61. Coronavirus no detected. Patient was given a dose of steroids, breathing treatments and started on azithromycin to be admitted to the general medical floors. On 02/17/2020- She states that her breathing has improved. She still continues to have some cough. Patient denies having any chest pain or palpitations. She states that her urine is still cloudy and has mild suprapubic tenderness. No fevers chills or rigors overnight. Patient denies having any abdominal pain nausea vomiting or diarrhea. On reviewing her vitals temperature of 98.3, heart rate around 70s, respiratory rate 18, saturating at 92% on 2 L of nasal cannula, blood pressure 172/72 . Urine analysis done yesterday positive for nitrites and moderate leukocyte esterase and moderate bacteria with 9 WBCs. On 02/18/2020- Pt is sitting up in the bed and states her breathing is much better today.So she wants to go home. Discussed with her that her urine cultures are still pending. But she insisted that she wants to leave and follow up with her PCP. She has been cleared by Pulmonary service for discharge. Vital Signs - 24 hr 02/18/20 02/18/20 02/18/20 02:30 07:00 07:20 Temperature 98.1 F 97.8 F Pulse Rate 84 Pulse Rate [ 83 78 Left] Respiratory 14 Rate Blood Pressure 136/63 151/76 [Left Arm] O2 Sat by Pulse 96 96 Oximetry 02/18/20 02/18/20 02/18/20 07:33 11:09 11:22 Temperature Pulse Rate 90 94 94 Pulse Rate [ Left] Respiratory Rate Blood Pressure [Left Arm] O2 Sat by Pulse Oximetry PHYSICAL EXAM GEN. APPEARANCE: alert, in no apparent distress HEENT : No pallor. No icterus. PERRLA. RESPIRATORY EXAM: Decreased breath sounds in all lung schulz. No crackles or wheezing. CARDIOVASCULAR EXAM: S1 and S2. No additional sounds. GI/ABDOMINAL EXAM: Abdomen is soft nontender. Normal bowel sounds. No guarding or rigidity. Mild suprapubic tenderness. No CVA tenderness. EXTREMITIES EXAM: No edema. NEUROLOGICAL EXAM: alert, oriented X3, no focal neurological deficits. PSYCHIATRIC EXAM: normal affect, normal mood DISCHARGE DIAGNOSIS Acute COPD exacerbation Urinary tract infection History of GI bleed Hypertension Hyperlipidemia Multiple joint osteoarthritis Herniated lumbar disc Left-sided sciatica pain History of diverticulitis History of left wrist fracture History of left hip replacement Former smoker History of pulmonary nodules including a 5 mm right midlung pulmonary nodule being followed in the outpatient setting last CT 12/03/2019 PLAN: Her breathing has improved , but Urine cultures still pending. She wants to go home, so will discharge on Cefitin for 3 days and advised to follow up with her PCP in 2-3 days. Also tapering dose of steroids. She also needs follow up with Pulmonary as OP for pulmonary nodule with CT chest in May,. Patient Condition at Discharge: Fair Plan - Discharge Summary Discharge Rx Participant: Yes New Discharge Prescriptions: New predniSONE See Taper PO DIRECTED #30 tab Cefuroxime Axetil [Ceftin] 500 mg PO BID 3 Days #6 tab guaiFENesin-Coden 100-10MG/5ML [Robitussin AC] 5 - 10 ml PO Q6H PRN 3 Days #120 ml PRN Reason: Cough Continue Metoprolol Succinate [Toprol XL] 12.5 mg PO DAILY amLODIPine [Norvasc] 5 mg PO DAILY Budesonide-Formot 160-4.5 Mcg [Symbicort 160-4.5 Mcg Inhaler] 2 puff INHALATION RT-BID Hydrochlorothiazide [Hydrodiuril] 25 mg PO DAILY Cholecalciferol [Vitamin D3 (25 Mcg = 1000 Iu)] 5,000 unit PO DAILY Acetaminophen Tab [Tylenol] 1,000 mg PO Q6HR PRN PRN Reason: Pain Lovastatin [Mevacor] 10 mg PO HS Albuterol Sulfate [Ventolin HFA] 2 puff INHALATION RT-Q6H PRN PRN Reason: Shortness Of Breath Dicyclomine HCl 10 mg PO Q8H PRN PRN Reason: ABDOMINAL PAIN Discharge Medication List Metoprolol Succinate [Toprol XL] 12.5 mg PO DAILY 09/25/17 [History] amLODIPine [Norvasc] 5 mg PO DAILY 09/25/17 [History] Budesonide-Formot 160-4.5 Mcg [Symbicort 160-4.5 Mcg Inhaler] 2 puff INHALATION RT-BID 02/09/18 [History] Hydrochlorothiazide [Hydrodiuril] 25 mg PO DAILY 06/04/19 [History] Acetaminophen Tab [Tylenol] 1,000 mg PO Q6HR PRN 02/16/20 [History] Albuterol Sulfate [Ventolin HFA] 2 puff INHALATION RT-Q6H PRN 02/16/20 [History] Cholecalciferol [Vitamin D3 (25 Mcg = 1000 Iu)] 5,000 unit PO DAILY 02/16/20 [History] Dicyclomine HCl 10 mg PO Q8H PRN 02/16/20 [History] Lovastatin [Mevacor] 10 mg PO HS 02/16/20 [History] Cefuroxime Axetil [Ceftin] 500 mg PO BID 3 Days #6 tab 02/18/20 [Rx] guaiFENesin-Coden 100-10MG/5ML [Robitussin AC] 5 - 10 ml PO Q6H PRN 3 Days #120 ml 02/18/20 [Rx] predniSONE See Taper PO DIRECTED #30 tab 02/18/20 [Rx] Follow up Appointment(s)/Referral(s): Neptali Ariza DO [Primary Care Provider] - 02/20/20 3:00 pm Discharge Disposition: HOME SELF-CARE
== END 2020-02-18 14:28 | disposition home or self-care (01) | DRG 190 ==
LOC: EC 08:33 → 4SSUR 10:33
PROVIDERS: ADMIT Internal Medicine; ATTEND Internal Medicine
DX: J44.1 Chronic obstructive pulmonary disease with (acute) exacerbation (principal); J96.21 Acute and chronic respiratory failure with hypoxia; J98.11 Atelectasis; N39.0 Urinary tract infection, site not specified; E78.5 Hyperlipidemia, unspecified; F41.9 Anxiety disorder, unspecified; I10 Essential (primary) hypertension; M15.9 Polyosteoarthritis, unspecified; M51.26 Other intervertebral disc displacement, lumbar region; M54.32 Sciatica, left side; G89.29 Other chronic pain; R91.8 Other nonspecific abnormal finding of lung field; K57.90 Diverticulosis of intestine, part unspecified, without perforation or abscess without bleeding; Z11.59 Encounter for screening for other viral diseases; Z79.51 Long term (current) use of inhaled steroids; Z79.899 Other long term (current) drug therapy; Z87.440 Personal history of urinary (tract) infections; Z87.891 Personal history of nicotine dependence; Z96.642 Presence of left artificial hip joint; Z88.1 Allergy status to other antibiotic agents; Z88.5 Allergy status to narcotic agent; Z88.0 Allergy status to penicillin; Z88.8 Allergy status to other drugs, medicaments and biological substances; Z90.49 Acquired absence of other specified parts of digestive tract; Z98.51 Tubal ligation status; Z86.010 Personal history of colon polyps; Z87.01 Personal history of pneumonia (recurrent); Z99.81 Dependence on supplemental oxygen; Z82.49 Family history of ischemic heart disease and other diseases of the circulatory system; Z80.1 Family history of malignant neoplasm of trachea, bronchus and lung; Z80.8 Family history of malignant neoplasm of other organs or systems
CPT/HCPCS: 36415; 71046; 80048; 80053; 81001; 83605; 83735; 83880; 84484; 85025; 85610; 85730; 87040; 87086; 87635; 93005; 94640; 94760; 96365; 96375; 99285

== ENCOUNTER 2020-05-25 07:58 | Day surgery (SDC) | payer MEDICARE ==
[2020-05-22 12:44] VITALS: BMI 26.4
[~2020-05-25 07:58] MED LIST changes: -LIDOCAINE 1% 20 ML VIAL (10MG/ML) FOR IV START INTRADERMA PRN
[2020-05-25 08:28] LABS: Glucose,Whole Blood 90 mg/dL (75-99)
[2020-05-25 08:29] VITALS: TEMP 97.5
[2020-05-25] MEDS ORDERED: LIDOCAINE 1% INJ 10MG/ML (20 ML MDV) ONE (08:53)
[2020-05-25] MEDS ORDERED: PROPOFOL 10 MG/ML 20 ML VIAL IV ONE (08:53)
--- NOTE | 2020-05-25 09:14 | P.PCN ---
Date of Procedure: 05/25/20 Description of Procedure: BRIEF HISTORY: Patient is a 71-year-old female presenting for outpatient EGD for evaluation of GERD. Patient reports symptoms of abdominal bloating, daily heartburn and flatulence. No improvement with Bentyl therapy PROCEDURE PERFORMED: Esophagogastroduodenoscopy with biopsy. PREOPERATIVE DIAGNOSIS: GERD. ESTIMATED BLOOD LOSS: Minimal. IV sedation per anesthesia. PROCEDURE: After informed consent was obtained, the patient was brought into the endoscopy unit. IV sedation was administered by Anesthesia under continuous monitoring. Initially the Olympus GIF-190 video endoscope was inserted into the mouth. Esophagus intubated without any difficulty. It was gradually advanced into the stomach and duodenum and carefully examined. The bulb and the second part of the duodenum appeared normal, with biopsies taken. The scope at this time was withdrawn to the stomach, adequately insufflated with air, and upon careful examination, mucosa of the antrum, body, cardia and the fundus appeared normal, except for some mild completed erythema in the antrum and body suggestive of mild gastritis with biopsies taken. The scope was then withdrawn into the esophagus. The GE junction was located at 38 cm from the incisors, biopsies taken. The esophagus appeared normal. There were no erosions or ulcerations seen and the patient tolerated the procedure well. IMPRESSION: 1.. Gastritis, antrum and body biopsied. 2. Biopsies of the GE junction and duodenum. RECOMMENDATIONS: The findings of this examination were discussed with the patient. Okay to resume diet. Okay to resume medications. Await pathology from biopsies. Follow up in gastroenterology clinic as previously scheduled.
[2020-05-25 09:29] VITALS: RESP 18
[2020-05-25 09:42] VITALS: BP 150/71; PULSE 77
== END 2020-05-25 10:03 | disposition home or self-care (01) ==
LOC: ORWHC2ENDO 07:58
PROVIDERS: ATTEND Internal Medicine
DX: K29.50 Unspecified chronic gastritis without bleeding (principal); B96.81 Helicobacter pylori [H. pylori] as the cause of diseases classified elsewhere; K21.0 Gastro-esophageal reflux disease with esophagitis; J44.9 Chronic obstructive pulmonary disease, unspecified; I10 Essential (primary) hypertension; E78.5 Hyperlipidemia, unspecified; M19.90 Unspecified osteoarthritis, unspecified site; F41.9 Anxiety disorder, unspecified; Z88.0 Allergy status to penicillin; Z88.1 Allergy status to other antibiotic agents; Z88.8 Allergy status to other drugs, medicaments and biological substances; Z88.5 Allergy status to narcotic agent; Z87.891 Personal history of nicotine dependence; Z79.52 Long term (current) use of systemic steroids; Z79.899 Other long term (current) drug therapy; Z79.51 Long term (current) use of inhaled steroids; Z90.49 Acquired absence of other specified parts of digestive tract; Z98.890 Other specified postprocedural states; Z86.69 Personal history of other diseases of the nervous system and sense organs; Z96.642 Presence of left artificial hip joint; Z97.2 Presence of dental prosthetic device (complete) (partial); Z87.19 Personal history of other diseases of the digestive system; Z98.51 Tubal ligation status; Z91.89 Other specified personal risk factors, not elsewhere classified
CPT/HCPCS: 88305; 88342; 43239; J2001; J2704

== ENCOUNTER 2020-09-28 08:08 | Emergency (ER) | payer MEDICARE ==
[2020-09-28 08:13] VITALS: RESP 18; TEMP 98
[2020-09-28] MEDS ORDERED: SODIUM CHLORIDE 0.9% 1,000 ML IV STA ×2 (08:42)
[2020-09-28 09:30] LABS: Basophils # (A) 0.1 k/uL (0-0.2); Basophils % (A) 1 %; Eosinophils # (A) 0.2 k/uL (0-0.7); Eosinophils % (A) 2 %; HCT 42.4 % (34.0-46.0); HGB 13.9 gm/dL (11.4-16.0); Lymphocytes # (A) 1.3 k/uL (1.0-4.8); Lymphocytes % (A) 11 %; MCH 27.7 pg (25.0-35.0); MCHC 32.7 g/dL (31.0-37.0); MCV 84.6 fL (80.0-100.0); Mean Platelet Volume 8.1; Monocytes # (A) 0.8 k/uL (0-1.0); Monocytes % (A) 6 %; Neutrophils # (A) 9.5 k/uL (1.3-7.7); Neutrophils % (A) 79 %; Platelet Count 359 k/uL (150-450); RBC 5.01 m/uL (3.80-5.40); RDW 15.9 % (11.5-15.5); WBC 12.1 k/uL (3.8-10.6)
--- NOTE | 2020-09-28 09:43 | XR ---
EXAMINATION TYPE: XR chest 2V DATE OF EXAM: 09/28/2020 COMPARISON: Prior chest x-ray 02/16/2020, chest CT 12/03/2019 HISTORY: Shortness of breath, history COPD, difficulty breathing TECHNIQUE: Frontal and lateral views of the chest are obtained. FINDINGS: There is no pleural effusion or pneumothorax seen. Some probable scarring present at the r ight lung apex. Prominent lung volumes may be indicative of underlying COPD. The cardiac silhouette s ize is within normal limits, stable. Aorta is dense. The osseous structures are intact. Nodular den sity seen in the right upper lobe on prior CT chest exam is not seen on plain film with certainty. IMPRESSION: No acute cardiopulmonary process. Emphysema.
[2020-09-28 09:46] LABS: ALT 29 U/L (4-34); AST 33 U/L (14-36); African American GFR (CKD) >90 (>60 ml/min/1.73 sqM); Albumin 4.3 g/dL (3.5-5.0); Alkaline Phosphatase 74 U/L (38-126); Anion Gap 10 mmol/L; Blood Urea Nitrogen 14 mg/dL (7-17); Calcium 9.6 mg/dL (8.4-10.2); Carbon Dioxide 27 mmol/L (22-30); Chloride 102 mmol/L (98-107); Glucose 121 mg/dL (74-99); Non-African American GFR(CKD) 90 (>60 ml/min/1.73 sqM); Potassium 3.8 mmol/L (3.5-5.1); Sodium 139 mmol/L (137-145); Total Bilirubin 0.7 mg/dL (0.2-1.3)
[2020-09-28 10:05] LABS: INR 0.9 (<1.2); Partial Thromboplastin Time 21.5 sec (22.0-30.0); Prothrombin Time 9.8 sec (9.0-12.0)
[2020-09-28 10:21] LABS: D-Dimer 1.13 mg/L FEU (<0.60)
--- NOTE | 2020-09-28 10:29 | ED ---
General Adult HPI - General Chief complaint: Shortness of Breath Stated complaint: ELIAS/COPD Time Seen by Provider: 09/28/20 08:33 Source: patient, RN notes reviewed, old records reviewed Mode of arrival: wheelchair Limitations: no limitations - History of Present Illness Initial comments: Patient is a 79-year-old female presents emergency department today with complaints of shortness of breath. She is concerned for COPD exacerbation. She denies chest pain. She reports that her prototype engineer manager is Dr. Cuevas and her fire battalion chief is Dr. Purvis. She states that she's had a productive cough worsening shortness of breath for the past 2 weeks. Is on low dose of prednisone daily. - Related Data Home Medications Medication Instructions Recorded Confirmed Metoprolol Succinate [Toprol XL] 12.5 mg PO DAILY 09/25/17 09/28/20 Budesonide-Formot 160-4.5 Mcg 2 puff INHALATION RT-BID 02/09/18 09/28/20 [Symbicort 160-4.5 Mcg Inhaler] hydroCHLOROthiazide [Hydrodiuril] 25 mg PO DAILY 06/04/19 09/28/20 Cholecalciferol [Vitamin D3 (25 1,000 unit PO DAILY 02/16/20 09/28/20 Mcg = 1000 Iu)] Loratadine [Claritin] 10 mg PO DAILY 05/22/20 09/28/20 predniSONE 5 mg PO DAILY 05/22/20 09/28/20 Albuterol Sulfate [Proair Hfa] 1 - 2 puff INHALATION RT-Q6H PRN 09/28/20 09/28/20 Ipratropium-Albuterol Nebulize 3 ml INHALATION RT-QID 09/28/20 09/28/20 [Duoneb 0.5 mg-3 mg/3 ml Soln] amLODIPine [Norvasc] 10 mg PO DAILY 09/28/20 09/28/20 Previous Rx's Medication Instructions Recorded Azithromycin [Zithromax Z-pack (6 250 mg PO DIRECTED #6 tab 09/28/20 tabs)] predniSONE 50 mg PO DAILY #5 tablet 09/28/20 Allergies Allergy/AdvReac Type Severity Reaction Status Date / Time amoxicillin [From Augmentin] Allergy Unknown Verified 09/28/20 10:20 clavulanic acid Allergy Unknown Verified 09/28/20 10:20 [From Augmentin] levofloxacin [From Levaquin] Allergy Unknown Verified 09/28/20 10:20 losartan Allergy Cough Verified 09/28/20 10:20 moxifloxacin HCl Allergy Rash/Hives, Verified 09/28/20 10:20 [From Avelox] SWELLING nitrofurantoin Allergy Rash/Hives Verified 09/28/20 10:20 hydrocodone bitartrate AdvReac Nausea & Verified 09/28/20 10:20 [From Lortab] Vomiting simvastatin AdvReac muscle pain Verified 09/28/20 10:20 Guewaoz-Fyp-Hhm Reductase AdvReac MUSCLE PAIN Verified 09/28/20 10:20 Inhibitor Review of Systems ROS Statement: Those systems with pertinent positive or pertinent negative responses have been documented in the HPI. ROS Other: All systems not noted in ROS Statement are negative. Past Medical History Past Medical History: Asthma, COPD, GERD/Reflux, GI Bleed, Hyperlipidemia, Hypertension, Osteoarthritis (OA), Pneumonia, Respiratory Disorder Additional Past Medical History / Comment(s): COPD with bullous changes in the upper lobes bilaterally, chronic hypoxic respiratory failure, home oxygen at 2L/NC mostly ATC, lower GI bleeding past, chronic low back pain-much improved since hip replaced, herniated lumbar discs, diverticulitis, urinary leakage, recent tx. for UTI, gas, bloating acid reflux for almost a year, just started daily steroids week or so ago for breathing issues per pt. History of Any Multi-Drug Resistant Organisms: None Reported Past Surgical History: Appendectomy, Bowel Resection, Cholecystectomy, Heart Catheterization, Joint Replacement, Orthopedic Surgery, Tubal Ligation Additional Past Surgical History / Comment(s): Bronchoscopies/lavages, bowel resection due to diverticulitis 2012, bilat knee arthroscopy, sinus surgery twic e, carpal tunnel left wrist, colonoscopies/polypectomies, back injections, left wrist fracture with pins placed 12-07-2018 and since removed, left hip replaced 2018 Past Anesthesia/Blood Transfusion Reactions: No Reported Reaction Additional Past Anesthesia/Blood Transfusion Reaction / Comment(s): has never received blood Past Psychological History: Anxiety Smoking Status: Former smoker Past Alcohol Use History: None Reported Past Drug Use History: None Reported - Past Family History Mother Family Medical History: Myocardial Infarction (ID) Additional Family Medical History / Comment(s): Mother of ID at age 65 yrs. Sister(s) Family Medical History: Cancer Additional Family Medical History / Comment(s): Twin sister had LUNG cancer. Father Family Medical History: Cancer Additional Family Medical History / Comment(s): Father had cancer in his neck. General Exam - General Exam Comments Initial Comments: 79-year-old female. Alert and oriented. No significant distress. Limitations: no limitations General appearance: alert, in no apparent distress Head exam: Present: atraumatic, normocephalic, normal inspection Eye exam: Present: normal appearance, PERRL, EOMI. Absent: scleral icterus, conjunctival injection, periorbital swelling ENT exam: Present: normal exam, mucous membranes moist Neck exam: Present: normal inspection. Absent: tenderness, meningismus, lymphadenopathy Respiratory exam: Present: normal lung sounds bilaterally. Absent: respiratory distress, wheezes, rales, rhonchi, stridor Cardiovascular Exam: Present: regular rate, normal rhythm, normal heart sounds. Absent: systolic murmur, diastolic murmur, rubs, gallop, clicks GI/Abdominal exam: Present: soft, normal bowel sounds. Absent: distended, tenderness, guarding, rebound, rigid Course Vital Signs 09/28/20 09/28/20 08:10 12:08 Temperature 98 F Pulse Rate 85 89 Respiratory 18 18 Rate Blood Pressure 149/69 140/61 O2 Sat by Pulse 89 L 95 Oximetry Medical Decision Making - Medical Decision Making 71-year-old female with COPD history presents with increased productive cough as week. Runny nose. Patient currently test is negative. She does have history of lung nodule and states she smokes have CTs performed. Family positive d- dimer and CT Eugenia does show enlarging pulmonary nodule. Patient currently denies falling up with PCP and pulmonology for repeat testing in 3 months. Patient understands the plan. Discussed at this time treating for COPD exacerbation. - Lab Data Result diagrams: 09/28/20 09:08 09/28/20 09:08 Lab Results 09/28/20 09/28/20 09/28/20 Range/Units 09:08 09:08 09:08 WBC 12.1 H (3.8-10.6) k/uL RBC 5.01 (3.80-5.40) m/uL Hgb 13.9 (11.4-16.0) gm/dL Hct 42.4 (34.0-46.0) % MCV 84.6 (80.0-100.0) fL MCH 27.7 (25.0-35.0) pg MCHC 32.7 (31.0-37.0) g/dL RDW 15.9 H (11.5-15.5) % Plt Count 359 (150-450) k/uL MPV 8.1 Neutrophils % 79 % Lymphocytes % 11 % Monocytes % 6 % Eosinophils % 2 % Basophils % 1 % Neutrophils # 9.5 H (1.3-7.7) k/uL Lymphocytes # 1.3 (1.0-4.8) k/uL Monocytes # 0.8 (0-1.0) k/uL Eosinophils # 0.2 (0-0.7) k/uL Basophils # 0.1 (0-0.2) k/uL PT 9.8 (9.0-12.0) sec INR 0.9 (<1.2) APTT 21.5 L (22.0-30.0) sec D-Dimer 1.13 H (<0.60) mg/L FEU Sodium 139 (137-145) mmol/L Potassium 3.8 (3.5-5.1) mmol/L Chloride 102 (98-107) mmol/L Carbon Dioxide 27 (22-30) mmol/L Anion Gap 10 mmol/L BUN 14 (7-17) mg/dL Creatinine 0.56 (0.52-1.04) mg/dL Est GFR (CKD-EPI)AfAm >90 (>60 ml/min/1.73 sqM) Est GFR (CKD-EPI)NonAf 90 (>60 ml/min/1.73 sqM) Glucose 121 H (74-99) mg/dL Lactic Ac Sepsis Rflx Plasma Lactic Acid Carlos (0.7-2.0) mmol/L Calcium 9.6 (8.4-10.2) mg/dL Magnesium 2.0 (1.6-2.3) mg/dL Total Bilirubin 0.7 (0.2-1.3) mg/dL AST 33 (14-36) U/L ALT 29 (4-34) U/L Alkaline Phosphatase 74 (38-126) U/L Troponin I (0.000-0.034) ng/mL NT-Pro-B Natriuret Pep pg/mL Total Protein 7.0 (6.3-8.2) g/dL Albumin 4.3 (3.5-5.0) g/dL Urine Color Urine Appearance (Clear) Urine pH (5.0-8.0) Ur Specific [place] (1.001-1.035) Urine Protein (Negative) Urine Glucose (UA) (Negative) Urine Ketones (Negative) Urine Blood (Negative) Urine Nitrite (Negative) Urine Bilirubin (Negative) Urine Urobilinogen (<2.0) mg/dL Ur Leukocyte Esterase (Negative) Urine RBC (0-5) /hpf Urine WBC (0-5) /hpf Ur Squamous Epith Cells (0-4) /hpf Urine Bacteria (None) /hpf Urine Mucus (None) /hpf Coronavirus (PCR) (Not Detectd) 09/28/20 09/28/20 09/28/20 Range/Units 09:08 09:08 09:08 WBC (3.8-10.6) k/uL RBC (3.80-5.40) m/uL Hgb (11.4-16.0) gm/dL Hct (34.0-46.0) % MCV (80.0-100.0) fL MCH (25.0-35.0) pg MCHC (31.0-37.0) g/dL RDW (11.5-15.5) % Plt Count (150-450) k/uL MPV Neutrophils % % Lymphocytes % % Monocytes % % Eosinophils % % Basophils % % Neutrophils # (1.3-7.7) k/uL Lymphocytes # (1.0-4.8) k/uL Monocytes # (0-1.0) k/uL Eosinophils # (0-0.7) k/uL Basophils # (0-0.2) k/uL PT (9.0-12.0) sec INR (<1.2) APTT (22.0-30.0) sec D-Dimer (<0.60) mg/L FEU Sodium (137-145) mmol/L Potassium (3.5-5.1) mmol/L Chloride (98-107) mmol/L Carbon Dioxide (22-30) mmol/L Anion Gap mmol/L BUN (7-17) mg/dL Creatinine (0.52-1.04) mg/dL Est GFR (CKD-EPI)AfAm (>60 ml/min/1.73 sqM) Est GFR (CKD-EPI)NonAf (>60 ml/min/1.73 sqM) Glucose (74-99) mg/dL Lactic Ac Sepsis Rflx Plasma Lactic Acid Carlos 2.6 H* (0.7-2.0) mmol/L Calcium (8.4-10.2) mg/dL Magnesium (1.6-2.3) mg/dL Total Bilirubin (0.2-1.3) mg/dL AST (14-36) U/L ALT (4-34) U/L Alkaline Phosphatase (38-126) U/L Troponin I <0.012 (0.000-0.034) ng/mL NT-Pro-B Natriuret Pep 120 pg/mL Total Protein (6.3-8.2) g/dL Albumin (3.5-5.0) g/dL Urine Color Urine Appearance (Clear) Urine pH (5.0-8.0) Ur Specific [place] (1.001-1.035) Urine Protein (Negative) Urine Glucose (UA) (Negative) Urine Ketones (Negative) Urine Blood (Negative) Urine Nitrite (Negative) Urine Bilirubin (Negative) Urine Urobilinogen (<2.0) mg/dL Ur Leukocyte Esterase (Negative) Urine RBC (0-5) /hpf Urine WBC (0-5) /hpf Ur Squamous Epith Cells (0-4) /hpf Urine Bacteria (None) /hpf Urine Mucus (None) /hpf Coronavirus (PCR) (Not Detectd) 09/28/20 09/28/20 09/28/20 Range/Units 09:08 10:03 12:02 WBC (3.8-10.6) k/uL RBC (3.80-5.40) m/uL Hgb (11.4-16.0) gm/dL Hct (34.0-46.0) % MCV (80.0-100.0) fL MCH (25.0-35.0) pg MCHC (31.0-37.0) g/dL RDW (11.5-15.5) % Plt Count (150-450) k/uL MPV Neutrophils % % Lymphocytes % % Monocytes % % Eosinophils % % Basophils % % Neutrophils # (1.3-7.7) k/uL Lymphocytes # (1.0-4.8) k/uL Monocytes # (0-1.0) k/uL Eosinophils # (0-0.7) k/uL Basophils # (0-0.2) k/uL PT (9.0-12.0) sec INR (<1.2) APTT (22.0-30.0) sec D-Dimer (<0.60) mg/L FEU Sodium (137-145) mmol/L Potassium (3.5-5.1) mmol/L Chloride (98-107) mmol/L Carbon Dioxide (22-30) mmol/L Anion Gap mmol/L BUN (7-17) mg/dL Creatinine (0.52-1.04) mg/dL Est GFR (CKD-EPI)AfAm (>60 ml/min/1.73 sqM) Est GFR (CKD-EPI)NonAf (>60 ml/min/1.73 sqM) Glucose (74-99) mg/dL Lactic Ac Sepsis Rflx Y Plasma Lactic Acid Carlos (0.7-2.0) mmol/L Calcium (8.4-10.2) mg/dL Magnesium (1.6-2.3) mg/dL Total Bilirubin (0.2-1.3) mg/dL AST (14-36) U/L ALT (4-34) U/L Alkaline Phosphatase (38-126) U/L Troponin I (0.000-0.034) ng/mL NT-Pro-B Natriuret Pep pg/mL Total Protein (6.3-8.2) g/dL Albumin (3.5-5.0) g/dL Urine Color Yellow Urine Appearance Clear (Clear) Urine pH 7.0 (5.0-8.0) Ur Specific [place] 1.009 (1.001-1.035) Urine Protein Negative (Negative) Urine Glucose (UA) Negative (Negative) Urine Ketones Negative (Negative) Urine Blood Negative (Negative) Urine Nitrite Negative (Negative) Urine Bilirubin Negative (Negative) Urine Urobilinogen <2.0 (<2.0) mg/dL Ur Leukocyte Esterase Trace H (Negative) Urine RBC <1 (0-5) /hpf Urine WBC 1 (0-5) /hpf Ur Squamous Epith Cells 1 (0-4) /hpf Urine Bacteria Rare H (None) /hpf Urine Mucus Rare H (None) /hpf Coronavirus (PCR) Not Detected (Not Detectd) 09/28/20 10:29 EKG performed at 822 shows sinus rhythm with premature atrial complex. Otherwise normal EKG. Ventricular rate of 84 beats were minute. Her was 150 form of seconds. Care instructions 90 ms. QTQTC 3-4/453 ms. - Radiology Data Radiology results: report reviewed CT shows no evidence for pulmonary embolism at this time. Enlarging right upper lobe nodule. Short-term follow-up is advised. Consider pet repeat computed tomography scan. Chest x-ray shows emphysematous changes no acute cardiopulmonary process. Disposition Clinical Impression: COPD exacerbation, Pulmonary nodule Disposition: HOME SELF-CARE Condition: Good Instructions (If sedation given, give patient instructions): COPD (Chronic Obstructive Pulmonary Disease) (ED) Additional Instructions: Take medication as prescribed continuing breathing treatments at home and remaining on oxygen. Return to ED if any alarming signs or symptoms occur. Follow-up with primary care doctor and prototype engineer manager in regards to pulmonary nodule findings. Prescriptions: predniSONE 50 mg PO DAILY #5 tablet Azithromycin [Zithromax Z-pack (6 tabs)] 250 mg PO DIRECTED #6 tab Is patient prescribed a controlled substance at d/c from ED?: No Referrals: Gianluca Sarabia DO [Primary Care Provider] - 1-2 days Time of Disposition: 11:52
--- NOTE | 2020-09-28 11:04 | CT ---
EXAMINATION TYPE: CT chest angio for PE DATE OF EXAM: 09/28/2020 COMPARISON: 12/03/2019 HISTORY: covid+, D-dimer+ CT DLP: 350.8 mGycm CONTRAST: CT chest with contrast and 3D reconstruction with MIP imaging is performed with IV Contrast, patient injected with 100 mL of Isovue 370. Contrast-enhanced CT of the chest was performed through the course of the pulmonary arteries with isabelle g and mediastinal window settings submitted. 3D reconstruction with MIP imaging was also performed. PULMONARY ARTERIES: The pulmonary arteries and their major tributaries are patent. I do not see ramakrishna dence for sizable filling defect to suggest pulmonary embolic process. LUNGS: Hyperinflation compatible with COPD. Upper lobe emphysematous changes. Enlarging Pulmonary nod ule right upper lobe measures 8 mm versus 4.5 mm previously. Right apical parenchymal scarring. MEDIASTINUM: Thoracic aorta is of normal caliber,however, evaluation is limited given timing of the contrast bolus. If there is concern for thoracic aortic pathology consider LARISA. Correlate clinicall y . The heart is not enlarged. No evidence for mediastinal mass. No mediastinal lymph nodes greater than 1cm. HILAR STRUCTURES: No evidence for mass. No hilar lymph nodes greater than 1 cm. UPPER ABDOMEN: No significant abnormality is seen. IMPRESSION: 1. No evidence for Pulmonary embolism at this time. 2. Enlarging right upper lobe pulmonary nodule. Short-term three-month follow-up is advised. Consider PET/CT.
[2020-09-28] MEDS ORDERED: methylPREDNISolone SOD SUCCI 125 MG/2 ML VIAL IV STA (11:08)
[2020-09-28 12:09] VITALS: BP 140/61; PULSE 89
[2020-09-28 12:32] LABS: Appearance,Urine Clear (Clear); Bacteria,Urine Rare /hpf; Bilirubin,Urine Negative (Negative); Blood,Urine Negative (Negative); Color,Urine Yellow; Glucose,Urine (UA) Negative (Negative); Ketones,Urine Negative (Negative); Leukocyte Esterase,Urine Trace (Negative); Mucus,Urine Rare /hpf; Nitrite,Urine Negative (Negative); Protein,Urine Negative (Negative); RBC,Urine <1 /hpf (0-5); Specific Gravity,Urine 1.009 (1.001-1.035); Squamous Epithelial Cell,Urine 1 /hpf (0-4); Urobilinogen,Urine <2.0 mg/dL (<2.0); WBC,Urine 1 /hpf (0-5)
== END 2020-09-28 12:15 | disposition home or self-care (01) ==
LOC: EC 08:08
DX: J44.1 Chronic obstructive pulmonary disease with (acute) exacerbation (principal); R91.1 Solitary pulmonary nodule; I10 Essential (primary) hypertension; Z79.899 Other long term (current) drug therapy; Z79.51 Long term (current) use of inhaled steroids; Z88.1 Allergy status to other antibiotic agents; Z88.0 Allergy status to penicillin; Z88.8 Allergy status to other drugs, medicaments and biological substances; Z88.5 Allergy status to narcotic agent; Z87.891 Personal history of nicotine dependence; Z96.642 Presence of left artificial hip joint; Z20.828 Contact with and (suspected) exposure to other viral communicable diseases
CPT/HCPCS: 99285 ×2; 96374 ×2; 96361 ×3; 36415; 93005; 85379; 83880; 80053; 83605; 83735; 84484; 85025; 85610; 85730; 81001; 87635; 71046; 71275; J2930; Q9967

== ENCOUNTER → 2020-10-17 | Outpatient (CLI) | payer MEDICARE ==
--- NOTE | 2020-10-19 07:43 | PE ---
EXAMINATION TYPE: PET CT fusion skull to thigh DATE OF EXAM: 10/17/2020 COMPARISON: CTA chest September 28, 2020. CT abdomen and pelvis June 04, 2019 HISTORY: Altered pulmonary nodule, abnormal CT. TECHNIQUE: Following the intravenous administration of 13.8 mCi of F-18 FDG, whole body images are p erformed from the skull base to the midthigh. Images are reviewed on the computer in the coronal, ax ial, and sagittal planes. Reconstructed rotating images are created on independent workstation and r eviewed on the computer. A localization and attenuation correction CT is performed in conjunction w ith the PET scan. SCAN: Initial Scan FINDINGS: SKULL BASE AND NECK: No suspicious hypermetabolic uptake. CHEST, MEDIASTINUM, AND HILAR REGION: Background fairly moderate to advanced underlying emphysematous change is redemonstrated. Peripheral right upper lobe nodule is less prominent measuring 8 mm image 83 and is ametabolic. No areas of abnormal hypermetabolic uptake in the thorax. ABDOMEN AND PELVIS: No adrenal masses. Normal excretion. No areas of abnormal hypermetabolic uptake. OSSEOUS STRUCTURES: No areas of abnormal hypermetabolic uptake. OTHER CT: [id number] calcified plaque left carotid bulb. More mild plaque right carotid bulb. Mild cardiomegaly, moderate three-vessel coronary artery calcification. Enlarged pulmonary arteries, CT findings consistent with underlying pulmonary artery hypertension. Cholecystectomy clips. Atherosclerotic ectatic abdominal aorta. Metallic artifact from left hip arthr oplasty causes streak artifact limiting evaluation of pelvic structures. Few scattered pelvic phlebol iths. Multilevel disc desiccation and disc space narrowing in the lumbar spine. IMPRESSION: No suspicious hypermetabolic uptake to suggest malignancy. Consider CT follow-up in 6-12 months time to document stability.
== END | disposition home or self-care (01) ==
LOC: RADPETMAIN 07:12
PROVIDERS: ATTEND Internal Medicine Critical Care Medicine
DX: R91.1 Solitary pulmonary nodule (principal)
CPT/HCPCS: 78815; A9552

== ENCOUNTER 2020-11-19 08:23 | Observation (INO) | payer MEDICARE ==
[2020-11-19] MEDS ORDERED: ONDANSETRON 4 MG/2 ML VIAL IVP STA (08:48)
[2020-11-19] MEDS ORDERED: SODIUM CHLORIDE 0.9% 1,000 ML IV STA (08:48)
--- NOTE | 2020-11-19 08:54 | ED ---
Weakness HPI - General Source: patient, RN notes reviewed Mode of arrival: wheelchair Limitations: no limitations <Johnson Felix - Last Filed: 11/19/20 11:28> <Kaley Parham - Last Filed: 11/23/20 21:58> - General Chief complaint: Weakness Stated complaint: weak/sob/cough/nausea Time Seen by Provider: 11/19/20 08:37 - History of Present Illness Initial comments: This is a 80-year-old female presents emergency Department chief complaint of generalized weakness. Patient states started last 3-4 days. Patient states she's has bodyaches head to toe states that she's been nauseated with some vomiting. Patient states she is currently being treated for H. pylori is unsure if medications as are making her sick. She's been on treatment for 2 weeks. Patient states that she also had a slight cough and has a long history of COPD on oxygen [address] Sarabia. Patient reports no fever but states that she's had chills. She states she has slight chest discomfort. No known sick contacts denies any major headache or dizziness at this time. Pain or leg swelling. (Johnson Felix) - Related Data Home Medications Medication Instructions Recorded Confirmed Metoprolol Succinate [Toprol XL] 12.5 mg PO DAILY 09/25/17 11/19/20 Budesonide-Formot 160-4.5 Mcg 2 puff INHALATION RT-BID 02/09/18 11/19/20 [Symbicort 160-4.5 Mcg Inhaler] hydroCHLOROthiazide [Hydrodiuril] 25 mg PO DAILY 06/04/19 11/19/20 Albuterol Sulfate [Proair Hfa] 1 - 2 puff INHALATION RT-Q6H PRN 09/28/20 11/19/20 Ipratropium-Albuterol Nebulize 3 ml INHALATION RT-QID 09/28/20 11/19/20 [Duoneb 0.5 mg-3 mg/3 ml Soln] amLODIPine [Norvasc] 10 mg PO DAILY 09/28/20 11/19/20 Cholecalciferol [Vitamin D3 (25 25 mcg PO DAILY 11/19/20 11/19/20 Mcg = 1000 Iu)] Pantoprazole Sodium [Protonix] 40 mg PO DAILY 11/19/20 11/19/20 Tetracycline HCl 500 mg PO Q6H 11/19/20 11/19/20 metroNIDAZOLE [Flagyl] 250 mg PO Q6H 11/19/20 11/19/20 predniSONE 10 mg PO DIRECTED 11/19/20 11/19/20 Allergies Allergy/AdvReac Type Severity Reaction Status Date / Time amoxicillin [From Augmentin] Allergy Unknown Verified 11/19/20 09:42 clavulanic acid Allergy Unknown Verified 11/19/20 09:42 [From Augmentin] levofloxacin [From Levaquin] Allergy Unknown Verified 11/19/20 09:42 moxifloxacin HCl Allergy Rash/Hives, Verified 11/19/20 09:42 [From Avelox] SWELLING nitrofurantoin Allergy Rash/Hives Verified 11/19/20 09:42 hydrocodone bitartrate AdvReac Nausea & Verified 11/19/20 09:42 [From Lortab] Vomiting losartan AdvReac Cough Verified 11/19/20 09:42 simvastatin AdvReac muscle pain Verified 11/19/20 09:42 Hipklpy-Ppx-Tdz Reductase AdvReac MUSCLE PAIN Verified 11/19/20 09:42 Inhibitor Review of Systems ROS Other: All systems not noted in ROS Statement are negative. <Johnson Felix - Last Filed: 11/19/20 11:28> ROS Other: All systems not noted in ROS Statement are negative. <Kaley Parham - Last Filed: 11/23/20 21:58> ROS Statement: Those systems with pertinent positive or pertinent negative responses have been documented in the HPI. Past Medical History Past Medical History: Asthma, COPD, GERD/Reflux, GI Bleed, Hyperlipidemia, Hypertension, Osteoarthritis (OA), Pneumonia, Respiratory Disorder Additional Past Medical History / Comment(s): COPD with bullous changes in the upper lobes bilaterally, chronic hypoxic respiratory failure, home oxygen at 2L/NC mostly ATC, lower GI bleeding past, chronic low back pain-much improved since hip replaced, herniated lumbar discs, diverticulitis, urinary leakage, recent tx. for UTI, gas, bloating acid reflux for almost a year, just started daily steroids week or so ago for breathing issues per pt. History of Any Multi-Drug Resistant Organisms: ESBL Date of last positivie culture/infection: 10/06/20 ESBL E.coli MDRO Source:: Urine Past Surgical History: Appendectomy, Bowel Resection, Cholecystectomy, Heart Catheterization, Joint Replacement, Orthopedic Surgery, Tubal Ligation Additional Past Surgical History / Comment(s): Bronchoscopies/lavages, bowel resection due to diverticulitis 2012, bilat knee arthroscopy, sinus surgery twice, carpal tunnel left wrist, colonoscopies/polypectomies, back injections, left wrist fracture with pins placed 12-07-2018 and since removed, left hip replaced 2018 Past Anesthesia/Blood Transfusion Reactions: No Reported Reaction Additional Past Anesthesia/Blood Transfusion Reaction / Comment(s): has never received blood Past Psychological History: Anxiety Smoking Status: Former smoker Past Alcohol Use History: None Reported Past Drug Use History: None Reported - Past Family History Mother Family Medical History: Myocardial Infarction ([place]) Additional Family Medical History / Comment(s): Mother of [place] at age 65 yrs. Sister(s) Family Medical History: Cancer Additional Family Medical History / Comment(s): Twin sister had LUNG cancer. Father Family Medical History: Cancer Additional Family Medical History / Comment(s): Father had cancer in his neck. <Johnson Felix - Last Filed: 11/19/20 11:28> General Exam Limitations: no limitations General appearance: alert, in no apparent distress Head exam: Present: atraumatic, normocephalic, normal inspection Eye exam: Present: normal appearance, PERRL, EOMI. Absent: scleral icterus, conjunctival injection, periorbital swelling ENT exam: Present: normal exam, normal oropharynx, mucous membranes moist Neck exam: Present: normal inspection, full ROM. Absent: tenderness, meningismus, lymphadenopathy Respiratory exam: Present: decreased breath sounds. Absent: normal lung sounds bilaterally, respiratory distress, wheezes, rales, rhonchi, stridor Cardiovascular Exam: Present: regular rate, normal rhythm, normal heart sounds. Absent: systolic murmur, diastolic murmur, rubs, gallop, clicks GI/Abdominal exam: Present: soft, tenderness (Mild epigastric), normal bowel sounds. Absent: distended, guarding, rebound, rigid Back exam: Absent: CVA tenderness (R), CVA tenderness (L) Neurological exam: Present: alert, oriented X3 Skin exam: Present: warm, dry, intact, normal color. Absent: rash <Johnson Felix - Last Filed: 11/19/20 11:28> Course Vital Signs 11/19/20 11/19/20 11/19/20 08:25 10:05 11:13 Temperature 98.0 F Pulse Rate 81 81 85 Respiratory 18 24 24 Rate Blood Pressure 130/67 125/67 119/77 O2 Sat by Pulse 90 L 95 95 Oximetry 11/19/20 11:59 Temperature Pulse Rate 90 Respiratory Rate Blood Pressure O2 Sat by Pulse Oximetry EKG Findings - EKG Comments: EKG Findings:: EKG performed at 8:37 sinus rhythm with noted nonspecific ST changes. Rate of 76 [place] 162 QRS 90 QT/QTC 406/456 <Johnson Felix - Last Filed: 11/19/20 11:28> Medical Decision Making - Lab Data Result diagrams: 11/19/20 08:51 11/19/20 08:51 <Johnson Felix - Last Filed: 11/19/20 11:28> - Lab Data Result diagrams: 11/19/20 08:51 11/21/20 09:00 <Kaley Parham - Last Filed: 11/23/20 21:58> - Medical Decision Making 80-year-old female presented for generalized weakness. Patient's found to be hypokalemic at 2.8. Patient's not tolerating oral intake well with her H. pylori. Patient's been having some diarrhea. Patient's had extreme shortness breath and with exertion at this point. Patient does have COPD oxygen dependent patient be admitted for COPD exacerbation, further workup for exertional dyspnea and electrolyte correction. (Johnson Felix) I was available for consultation in the emergency department. The history and physical exam were done by the midlevel provider. I was consulted for this patients care. I reviewed the case with the midlevel provider and based on their presentation of the patient, I agree with the assessment, medical decision making and plan of care as documented. Chart was dictated using [employer] dictation software. Attempts were made to correct any dictation errors however some typographical errors may persist. Patient was seen during a national state of emergency due to the Covid-19 pandemic. (Kaley Parham) - Lab Data Lab Results 11/19/20 11/19/20 11/19/20 Range/Units 08:51 08:51 08:51 WBC 10.6 (3.8-10.6) k/uL RBC 5.33 (3.80-5.40) m/uL Hgb 14.6 (11.4-16.0) gm/dL Hct 44.8 (34.0-46.0) % MCV 84.0 (80.0-100.0) fL MCH 27.3 (25.0-35.0) pg MCHC 32.5 (31.0-37.0) g/dL RDW 15.4 (11.5-15.5) % Plt Count 311 (150-450) k/uL MPV 7.7 Neutrophils % 73 % Lymphocytes % 11 % Monocytes % 10 % Eosinophils % 4 % Basophils % 1 % Neutrophils # 7.7 (1.3-7.7) k/uL Lymphocytes # 1.2 (1.0-4.8) k/uL Monocytes # 1.0 (0-1.0) k/uL Eosinophils # 0.4 (0-0.7) k/uL Basophils # 0.1 (0-0.2) k/uL PT 10.5 (9.0-12.0) sec INR 1.0 (<1.2) APTT 21.4 L (22.0-30.0) sec Sodium (137-145) mmol/L Potassium (3.5-5.1) mmol/L Chloride (98-107) mmol/L Carbon Dioxide (22-30) mmol/L Anion Gap mmol/L BUN (7-17) mg/dL Creatinine (0.52-1.04) mg/dL Est GFR (CKD-EPI)AfAm (>60 ml/min/1.73 sqM) Est GFR (CKD-EPI)NonAf (>60 ml/min/1.73 sqM) Glucose (74-99) mg/dL Plasma Lactic Acid Carlos (0.7-2.0) mmol/L Calcium (8.4-10.2) mg/dL Magnesium (1.6-2.3) mg/dL Total Bilirubin (0.2-1.3) mg/dL AST (14-36) U/L ALT (4-34) U/L Alkaline Phosphatase (38-126) U/L Troponin I (0.000-0.034) ng/mL NT-Pro-B Natriuret Pep pg/mL Total Protein (6.3-8.2) g/dL Albumin (3.5-5.0) g/dL Urine Color Yellow Urine Appearance Clear (Clear) Urine pH 7.0 (5.0-8.0) Ur Specific [place] 1.010 (1.001-1.035) Urine Protein Trace H (Negative) Urine Glucose (UA) Negative (Negative) Urine Ketones Negative (Negative) Urine Blood Negative (Negative) Urine Nitrite Negative (Negative) Urine Bilirubin Negative (Negative) Urine Urobilinogen <2.0 (<2.0) mg/dL Ur Leukocyte Esterase Trace H (Negative) Urine RBC 1 (0-5) /hpf Urine WBC 3 (0-5) /hpf Ur Squamous Epith Cells 1 (0-4) /hpf Urine Bacteria Rare H (None) /hpf Hyaline Casts 8 H (0-2) /lpf Urine Mucus Rare H (None) /hpf Coronavirus (PCR) (Not Detectd) 11/19/20 11/19/20 11/19/20 Range/Units 08:51 08:51 08:51 WBC (3.8-10.6) k/uL RBC (3.80-5.40) m/uL Hgb (11.4-16.0) gm/dL Hct (34.0-46.0) % MCV (80.0-100.0) fL MCH (25.0-35.0) pg MCHC (31.0-37.0) g/dL RDW (11.5-15.5) % Plt Count (150-450) k/uL MPV Neutrophils % % Lymphocytes % % Monocytes % % Eosinophils % % Basophils % % Neutrophils # (1.3-7.7) k/uL Lymphocytes # (1.0-4.8) k/uL Monocytes # (0-1.0) k/uL Eosinophils # (0-0.7) k/uL Basophils # (0-0.2) k/uL PT (9.0-12.0) sec INR (<1.2) APTT (22.0-30.0) sec Sodium 134 L (137-145) mmol/L Potassium 2.8 L (3.5-5.1) mmol/L Chloride 97 L (98-107) mmol/L Carbon Dioxide 29 (22-30) mmol/L Anion Gap 8 mmol/L BUN 9 (7-17) mg/dL Creatinine 0.59 (0.52-1.04) mg/dL Est GFR (CKD-EPI)AfAm >90 (>60 ml/min/1.73 sqM) Est GFR (CKD-EPI)NonAf 88 (>60 ml/min/1.73 sqM) Glucose 115 H (74-99) mg/dL Plasma Lactic Acid Carlos 2.0 (0.7-2.0) mmol/L Calcium 9.6 (8.4-10.2) mg/dL Magnesium 1.7 (1.6-2.3) mg/dL Total Bilirubin 0.7 (0.2-1.3) mg/dL AST 37 H (14-36) U/L ALT 33 (4-34) U/L Alkaline Phosphatase 78 (38-126) U/L Troponin I <0.012 (0.000-0.034) ng/mL NT-Pro-B Natriuret Pep pg/mL Total Protein 6.5 (6.3-8.2) g/dL Albumin 4.0 (3.5-5.0) g/dL Urine Color Urine Appearance (Clear) Urine pH (5.0-8.0) Ur Specific [place] (1.001-1.035) Urine Protein (Negative) Urine Glucose (UA) (Negative) Urine Ketones (Negative) Urine Blood (Negative) Urine Nitrite (Negative) Urine Bilirubin (Negative) Urine Urobilinogen (<2.0) mg/dL Ur Leukocyte Esterase (Negative) Urine RBC (0-5) /hpf Urine WBC (0-5) /hpf Ur Squamous Epith Cells (0-4) /hpf Urine Bacteria (None) /hpf Hyaline Casts (0-2) /lpf Urine Mucus (None) /hpf Coronavirus (PCR) (Not Detectd) 11/19/20 11/19/20 Range/Units 08:51 08:51 WBC (3.8-10.6) k/uL RBC (3.80-5.40) m/uL Hgb (11.4-16.0) gm/dL Hct (34.0-46.0) % MCV (80.0-100.0) fL MCH (25.0-35.0) pg MCHC (31.0-37.0) g/dL RDW (11.5-15.5) % Plt Count (150-450) k/uL MPV Neutrophils % % Lymphocytes % % Monocytes % % Eosinophils % % Basophils % % Neutrophils # (1.3-7.7) k/uL Lymphocytes # (1.0-4.8) k/uL Monocytes # (0-1.0) k/uL Eosinophils # (0-0.7) k/uL Basophils # (0-0.2) k/uL PT (9.0-12.0) sec INR (<1.2) APTT (22.0-30.0) sec Sodium (137-145) mmol/L Potassium (3.5-5.1) mmol/L Chloride (98-107) mmol/L Carbon Dioxide (22-30) mmol/L Anion Gap mmol/L BUN (7-17) mg/dL Creatinine (0.52-1.04) mg/dL Est GFR (CKD-EPI)AfAm (>60 ml/min/1.73 sqM) Est GFR (CKD-EPI)NonAf (>60 ml/min/1.73 sqM) Glucose (74-99) mg/dL Plasma Lactic Acid Carlos (0.7-2.0) mmol/L Calcium (8.4-10.2) mg/dL Magnesium (1.6-2.3) mg/dL Total Bilirubin (0.2-1.3) mg/dL AST (14-36) U/L ALT (4-34) U/L Alkaline Phosphatase (38-126) U/L Troponin I (0.000-0.034) ng/mL NT-Pro-B Natriuret Pep 124 pg/mL Total Protein (6.3-8.2) g/dL Albumin (3.5-5.0) g/dL Urine Color Urine Appearance (Clear) Urine pH (5.0-8.0) Ur Specific [place] (1.001-1.035) Urine Protein (Negative) Urine Glucose (UA) (Negative) Urine Ketones (Negative) Urine Blood (Negative) Urine Nitrite (Negative) Urine Bilirubin (Negative) Urine Urobilinogen (<2.0) mg/dL Ur Leukocyte Esterase (Negative) Urine RBC (0-5) /hpf Urine WBC (0-5) /hpf Ur Squamous Epith Cells (0-4) /hpf Urine Bacteria (None) /hpf Hyaline Casts (0-2) /lpf Urine Mucus (None) /hpf Coronavirus (PCR) Not Detected (Not Detectd) Disposition <Johnson Felix - Last Filed: 11/19/20 11:28> <Kaley Parham - Last Filed: 11/23/20 21:58> Clinical Impression: Dehydration, Hypokalemia, Acute exacerbation of chronic obstructive airways disease, Hypoxia, Dyspnea, Exertional dyspnea Disposition: ADMITTED IP TO THIS HOSP Condition: Fair
[2020-11-19 09:06] LABS: Basophils # (A) 0.1 k/uL (0-0.2); Basophils % (A) 1 %; Eosinophils # (A) 0.4 k/uL (0-0.7); Eosinophils % (A) 4 %; HCT 44.8 % (34.0-46.0); HGB 14.6 gm/dL (11.4-16.0); Lymphocytes # (A) 1.2 k/uL (1.0-4.8); Lymphocytes % (A) 11 %; MCH 27.3 pg (25.0-35.0); MCHC 32.5 g/dL (31.0-37.0); Mean Platelet Volume 7.7; Monocytes % (A) 10 %; Neutrophils # (A) 7.7 k/uL (1.3-7.7); Neutrophils % (A) 73 %; Platelet Count 311 k/uL (150-450); RBC 5.33 m/uL (3.80-5.40); RDW 15.4 % (11.5-15.5); WBC 10.6 k/uL (3.8-10.6)
[2020-11-19 09:29] LABS: ALT 33 U/L (4-34); AST 37 U/L (14-36); African American GFR (CKD) >90 (>60 ml/min/1.73 sqM); Alkaline Phosphatase 78 U/L (38-126); Anion Gap 8 mmol/L; Blood Urea Nitrogen 9 mg/dL (7-17); Calcium 9.6 mg/dL (8.4-10.2); Carbon Dioxide 29 mmol/L (22-30); Chloride 97 mmol/L (98-107); Glucose 115 mg/dL (74-99); Magnesium 1.7 mg/dL (1.6-2.3); Non-African American GFR(CKD) 88 (>60 ml/min/1.73 sqM); Potassium 2.8 mmol/L (3.5-5.1); Prothrombin Time 10.5 sec (9.0-12.0); Sodium 134 mmol/L (137-145); Total Bilirubin 0.7 mg/dL (0.2-1.3); Total Protein 6.5 g/dL (6.3-8.2)
[2020-11-19 09:44] LABS: Partial Thromboplastin Time 21.4 sec (22.0-30.0)
[2020-11-19 09:53] LABS: Appearance,Urine Clear (Clear); Bacteria,Urine Rare /hpf; Bilirubin,Urine Negative (Negative); Blood,Urine Negative (Negative); Color,Urine Yellow; Glucose,Urine (UA) Negative (Negative); Hyaline Casts,Urine 8 /lpf (0-2); Ketones,Urine Negative (Negative); Leukocyte Esterase,Urine Trace (Negative); Mucus,Urine Rare /hpf; Nitrite,Urine Negative (Negative); Protein,Urine Trace (Negative); RBC,Urine 1 /hpf (0-5); Squamous Epithelial Cell,Urine 1 /hpf (0-4); Urobilinogen,Urine <2.0 mg/dL (<2.0); WBC,Urine 3 /hpf (0-5)
--- NOTE | 2020-11-19 10:49 | XR ---
EXAMINATION TYPE: XR chest 2V DATE OF EXAM: 11/19/2020 COMPARISON: Prior chest x-ray and chest CT 09/28/2020 HISTORY: Weakness, cough and shortness of breath TECHNIQUE: Frontal and lateral views of the chest are obtained. FINDINGS: There is no focal air space opacity, pleural effusion, or pneumothorax seen. Areas of stra nd-like increased attenuation again noted in the right upper lobe, there is local pleural thickening at the right apex. Interstitium is prominent as described in prior CT report is not seen definitively . The cardiac silhouette size is thought to be stable accounting for differences in technique, rotati on may accentuate the appearance of the heart size. Prominent lung volumes suggest underlying COPD. Atheromatous changes are present within the aorta. Clips in the upper abdomen. Patient is rotated, th ere are overlying leads. The osseous structures are intact, arthropathy changes are present within th e shoulders.. IMPRESSION: No acute cardiopulmonary process. Emphysema and scarring within the lungs
[2020-11-19] MEDS ORDERED: methylPREDNISolone SOD SUCCI 125 MG/2 ML VIAL IV STA (11:19)
[2020-11-19] MEDS ORDERED: POTASSIUM CHLORIDE ER 20 MEQ TAB.ER PO STA (11:20)
[2020-11-19] MEDS ORDERED: POTASSIUM CHLORIDE 20 MEQ in WATER FOR INJECTION 1 100ML.BAG IVPB STA (11:20)
[2020-11-19] MEDS ORDERED: IPRATROPIUM-ALBUTEROL 3 ML NEB INHALATION STA (11:31)
[2020-11-19] MEDS: IPRATROPIUM-ALBUTEROL 3 ML NEB INHALATION SCH ×3 (12:03→20:13)
[2020-11-19] MEDS ORDERED: IPRATROPIUM-ALBUTEROL 3 ML NEB INHALATION PRN (12:07)
[2020-11-19] MEDS: metroNIDAZOLE 250 MG TABLET PO SCH ×2 (13:00→17:35)
[2020-11-19] MEDS: TETRACYCLINE HCL 500 MG PO SCH ×4 (13:01→22:24)
--- NOTE | 2020-11-19 15:50 | P.CNPUL ---
History of Present Illness Consult date: 11/19/20 Reason for consult: dyspnea History of present illness: 80-year-old female patient known history of COPD was been steroid dependent for many years follow-up through our office on the the care of Dr. Sarabia. The patient also utilizes Symbicort as maintenance in addition to DuoNeb nebulized treatments [id number]. More recently, the patient was having GI symptoms and the patient was found to be positive for H. pylori based on a stool esteban lysis. She was seen by infectious disease and the patient was started on a combination of metronidazole and doxycycline and she was asked to stop the prednisone. Since then, the patient became progressively more short of breath. She is around 2 days ago to have exertional dyspnea and she felt quite weak and fatigued. She also complained of some nausea and emesis. She contacted our office and she was directed to come into the hospital. Based on her blood work, there is hypokalemia with a potassium level of 2.8. No significant metabolic acidosis. The rain virus 19 testing was negative. White cell count is at 10.6. Coagulation profile is within normal limits. No acute cardiopulmonary process. Currently she is already feeling better. Review of Systems Constitutional: Reports fatigue, Reports weakness Eyes: denies blurred vision, denies decreased vision Ears: deny: decreased hearing Ears, nose, mouth and throat: Denies headache, Denies sore throat Cardiovascular: Reports dyspnea on exertion, Reports high blood pressure, Reports shortness of breath Respiratory: Reports cough, Reports dyspnea, Reports home oxygen, Reports wheezing Gastrointestinal: Denies abdominal pain, Denies diarrhea, Denies nausea, Denies vomiting Genitourinary: Denies dysuria, Denies hematuria Musculoskeletal: Reports fractures Musculoskeletal: left: wrist pain (Recent fracture with repair 12/07/2018) Integumentary: Denies pruritus, Denies rash Neurological: Denies numbness, Denies weakness Psychiatric: Denies anxiety, Denies depression Endocrine: Denies fatigue, Denies weight change Hematologic/Lymphatic: Reports as per HPI Allergic/Immunologic: Reports as per HPI Past Medical History Past Medical History: Asthma, COPD, GERD/Reflux, GI Bleed, Hyperlipidemia, Hypertension, Osteoarthritis (OA), Pneumonia, Respiratory Disorder Additional Past Medical History / Comment(s): Pt currently being treated for H Pylori, COPD with bullous changes in the upper lobes bilaterally, chronic hypo xic respiratory failure, home oxygen at 2L/NC mostly ATC, lower GI bleeding past, chronic low back pain-much improved since hip replaced, herniated lumbar discs, arthritis in multiple joints, diverticulitis, urinary leakage, UTI History of Any Multi-Drug Resistant Organisms: ESBL Date of last positivie culture/infection: 10/06/20 ESBL E.coli MDRO Source:: Urine Past Surgical History: Appendectomy, Bowel Resection, Cholecystectomy, Heart Catheterization, Joint Replacement, Orthopedic Surgery, Tubal Ligation Additional Past Surgical History / Comment(s): Bronchoscopies/lavages, bowel resection due to diverticulitis 2012, bilat knee arthroscopy, sinus surgery twice, carpal tunnel left wrist, EGD, colonoscopies/polypectomies, back injections, left wrist fracture with pins placed 12-07-2018 and since removed, left hip replaced 2018 Past Anesthesia/Blood Transfusion Reactions: No Reported Reaction Additional Past Anesthesia/Blood Transfusion Reaction / Comment(s): has never received blood Smoking Status: Former smoker - Past Family History Mother Family Medical History: Myocardial Infarction ([place]) Additional Family Medical History / Comment(s): Mother of [place] at age 65 yrs. Sister(s) Family Medical History: Cancer Additional Family Medical History / Comment(s): Twin sister had LUNG cancer. Father Family Medical History: Cancer Additional Family Medical History / Comment(s): Father had cancer in his neck. Medications and Allergies Home Medications Medication Instructions Recorded Confirmed Type Metoprolol Succinate [Toprol XL] 12.5 mg PO DAILY 09/25/17 11/19/20 History Budesonide-Formot 160-4.5 Mcg 2 puff INHALATION RT-BID 02/09/18 11/19/20 History [Symbicort 160-4.5 Mcg Inhaler] hydroCHLOROthiazide [Hydrodiuril] 25 mg PO DAILY 06/04/19 11/19/20 History Albuterol Sulfate [Proair Hfa] 1 - 2 puff INHALATION RT-Q6H PRN 09/28/20 11/19/20 History Ipratropium-Albuterol Nebulize 3 ml INHALATION RT-QID 09/28/20 11/19/20 History [Duoneb 0.5 mg-3 mg/3 ml Soln] amLODIPine [Norvasc] 10 mg PO DAILY 09/28/20 11/19/20 History Cholecalciferol [Vitamin D3 (25 25 mcg PO DAILY 11/19/20 11/19/20 History Mcg = 1000 Iu)] Pantoprazole Sodium [Protonix] 40 mg PO DAILY 11/19/20 11/19/20 History Tetracycline HCl 500 mg PO Q6H 11/19/20 11/19/20 History metroNIDAZOLE [Flagyl] 250 mg PO Q6H 11/19/20 11/19/20 History predniSONE 10 mg PO DIRECTED 11/19/20 11/19/20 History Allergies Allergy/AdvReac Type Severity Reaction Status Date / Time amoxicillin [From Augmentin] Allergy Unknown Verified 11/19/20 09:42 clavulanic acid Allergy Unknown Verified 11/19/20 09:42 [From Augmentin] levofloxacin [From Levaquin] Allergy Unknown Verified 11/19/20 09:42 moxifloxacin HCl Allergy Rash/Hives, Verified 11/19/20 09:42 [From Avelox] SWELLING nitrofurantoin Allergy Rash/Hives Verified 11/19/20 09:42 hydrocodone bitartrate AdvReac Nausea & Verified 11/19/20 09:42 [From Lortab] Vomiting losartan AdvReac Cough Verified 11/19/20 09:42 simvastatin AdvReac muscle pain Verified 11/19/20 09:42 Aucdilz-Ecg-Fqq Reductase AdvReac MUSCLE PAIN Verified 11/19/20 09:42 Inhibitor Physical Exam Vitals: Vital Signs Temp Pulse Pulse Resp BP BP Pulse Ox 11/19/20 13:54 97.9 F 89 18 131/62 93 L 11/19/20 11:59 90 11/19/20 11:13 85 24 119/77 95 11/19/20 10:05 81 24 125/67 95 11/19/20 08:25 98.0 F 81 18 130/67 90 L Intake and Output 11/19/20 11/19/20 11/19/20 06:59 14:59 22:59 Other: Weight 68.946 kg 68.946 kg GENERAL EXAM: Alert, active, comfortable in no apparent distress. On 2 L nasal cannula Head exam was generally normal. There was no scleral icterus or corneal arcus. Mucous membranes were moist. EYES: Normal reaction of pupils, equal size. NOSE: Clear with pink turbinates. THROAT: No erythema or exudates. Neck was supple and without jugular venous distension, thyromegaly, or carotid bruits. Carotids were easily palpable bilaterally. There was no adenopathy. CHEST: No chest wall deformity. LUNGS: Equal air entry with faint expiratory wheeze, diminished. CVS: S1 and S2 normal with no audible murmur, regular rhythm. ABDOMEN: No hepatosplenomegaly, normal bowel sounds, no guarding or rigidity. SPINE: No scoliosis or deformity SKIN: No rashes CENTRAL NERVOUS SYSTEM: No focal deficits, tone is normal in all 4 extremities. EXTREMITIES: Cast to the left wrist. There is no peripheral edema. No clubbing, no cyanosis. Peripheral pulses are intact. Results - Laboratory Findings CBC and BMP: 11/19/20 08:51 11/19/20 08:51 PT/INR, D-dimer PT 10.5 sec (9.0-12.0) 11/19/20 08:51 INR 1.0 (<1.2) 11/19/20 08:51 Abnormal lab findings: Abnormal Labs 11/19/20 11/19/20 11/19/20 08:51 08:51 08:51 APTT 21.4 L Sodium 134 L Potassium 2.8 L Chloride 97 L Glucose 115 H AST 37 H Urine Protein Trace H Ur Leukocyte Esterase Trace H Urine Bacteria Rare H Hyaline Casts 8 H Urine Mucus Rare H - Diagnostic Findings Chest x-ray: image reviewed Assessment and Plan Plan: 1 acute on chronic dyspnea possibly secondary to COPD exacerbation. At the same time I see that the patient has some symptoms to suggest steroid withdrawal as the patient has been chronically on steroids and she was taken off the prednisone which made her quite weak, fatigue, and she was having some nausea and tiredness. As such, the possibility of steroid withdrawal needs to be considered. No lab work to support a diagnosis of adrenal insufficiency. 2 advanced COPD with upper lobe changes/bullous changes and the patient has been treated for extensive pneumonias in the past, none for now 3 chronic hypoxic respiratory failure secondary to COPD 4 vague right upper lobe opacity being followed up in our office and the patient a CAT scan of the chest that was done on 09/28/2020 followed by a PET scan that was done on 10/18/2020 showing no evidence of any significant metabolic activity in the right upper lobe. As such, no clear indication of an underlying malignancy. 5 history of smoking 6 hypertension 7 hyperlipidemia 8 H. pylori being treated on outpatient basis with a combination of doxycycline and Flagyl. Plan Restart the patient IV Solu Medrol 60 every grams every 8 hours DuoNeb nebulized treatments around the clock replaced the Symbicort with a combination of Perforomist and Pulmicort neb last treatment twice a day Continue treatment for H. pylori with Flagyl and add Protonix Lovenox for prophylaxis We'll continue to follow
[2020-11-19] MEDS: PANTOPRAZOLE 40 MG/10 ML VIAL IVP SCH (15:52)
[2020-11-19] MEDS: ENOXAPARIN 40 MG/0.4 ML SYRINGE SQ SCH (15:52)
[2020-11-19] MEDS: methylPREDNISolone SOD SUCCI 125 MG/2 ML VIAL IV SCH (15:53)
[2020-11-19] MEDS: BUDESONIDE 1 MG/2 ML NEBU INHALATION SCH ×2 (16:12→20:13)
[2020-11-19] MEDS: FORMOTEROL FUMARATE 20 MCG/2 ML NEBU INHALATION SCH ×2 (16:12→20:13)
[2020-11-19 16:24] LABS: African American GFR (CKD) >90 (>60 ml/min/1.73 sqM); Anion Gap 6 mmol/L; Blood Urea Nitrogen 10 mg/dL (7-17); Calcium 8.9 mg/dL (8.4-10.2); Carbon Dioxide 29 mmol/L (22-30); Chloride 102 mmol/L (98-107); Glucose 177 mg/dL (74-99); Non-African American GFR(CKD) 89 (>60 ml/min/1.73 sqM); Potassium 3.6 mmol/L (3.5-5.1); Sodium 137 mmol/L (137-145)
[2020-11-19] MEDS ORDERED: Potassium Replacement Protocol 1 EACH MISC MISCELLANE PRN (18:55)
--- NOTE | 2020-11-19 19:22 | P.HPIM ---
History of Present Illness H&P Date: 11/19/20 Chief Complaint: Shortness of breath History of presenting complaint: This is a pleasant 80-year-old patient of Dr. Ariza. 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 Chronic stable medical conditions include hyperlipidemia, hypertension, osteoarthritis, diverticulosis, home oxygen 2 L. patient recently tested positive for H. pylori. She was taken off of steroids that she is for maintenance for a COPD. 44 days she is becoming increasingly short of breath. He got a cough. White phlegm. Finding in the vertebrae. Denies any leg swelling. No change in bowel pattern. Decrease appetite. No fever no chills. Presented to the ER. Because of the medications she is taking for H. pylori she has not been able to eat. Review of systems: GEN.: tired EYES: None HEENT: None NECK: None RESPIRATORY: As above CARDIOVASCULAR: As above GASTROINTESTINAL: None GENITOURINARY: None MUSCULOSKELETAL: Pain in the joints LYMPHATICS: None HEMATOLOGICAL: None PSYCHIATRY: None NEUROLOGICAL: None Past medical history to include: COPD, hyperlipidemia, hypertension, osteoarthritis, pneumonia, diverticulosis, home oxygen 2 L, left arm fracture, GERD, H. pylori, diverticulitis, urinary incontinence Social history: Lives alone. Smoked for about 39 years stopped in 1997. Smoked less than a pack a day. No alcohol. Physical examination: VITAL SIGNS: 98, 85, 24, 119/77, 95% on 2 L GENERAL: BMI 26.9, sitting up, tired, slightly short of breath EYES: Pupils equal. Conjunctiva normal. HEENT: External appearance of nose and ears normal, oral cavity grossly normal. NECK: JVD not raised; masses not palpable. HEART: First and second heart sounds are normal; no edema. LUNGS: Respiratory rate increased, decreased breath sounds. Prolonged expiration ABDOMEN: Soft, nontender, liver spleen not palpable, no masses palpable. PSYCH: Alert and oriented x3; mood and affect normal. NEUROLOGICAL: Cranial nerves grossly intact; no facial asymmetry, power and sensation grossly intact. LYMPHATICS: No lymph nodes palpable in the axilla and neck - INVESTIGATIONS, reviewed in the clinical context: White count 10.6 hemoglobin 14.6 platelets 311 potassium 2.8 bun 9 creatinine 0.59 Troponin I less than 0.012, proBNP 124 Coronavirus [PCR]-not detected EKG tracing personally reviewed by me-normal sinus rhythm with some ST segment changes. Chest x-ray film personally reviewed by me-possibly chronic changes Assessment and plan: -Acute COPD exacerbation in an ex-smoker of the patient's steroids were stopped while getting treatment for H. pylori. Patient started on nebulized bronchodilators, inhaled steroids, inhaled long-acting bronchodilators. -GERD on Protonix -H pylori continue with Flagyl and Protonix -Essential hypertension, continue hydrochlorothiazide Toprol-XL -Primary osteoarthritis, diffuse Tylenol when necessary -Colonic diverticulosis , asymptomatic -chronic hypoxic respiratory failure on home oxygen 2 L -Care was discussed with the patient. Dr. Barragan was consulted. Continue with oxygen supplementation. Past Medical History Past Medical History: Asthma, COPD, GERD/Reflux, GI Bleed, Hyperlipidemia, H ypertension, Osteoarthritis (OA), Pneumonia, Respiratory Disorder Additional Past Medical History / Comment(s): Pt currently being treated for H Pylori, COPD with bullous changes in the upper lobes bilaterally, chronic hypoxic respiratory failure, home oxygen at 2L/NC mostly ATC, lower GI bleeding past, chronic low back pain-much improved since hip replaced, herniated lumbar discs, arthritis in multiple joints, diverticulitis, urinary leakage, UTI History of Any Multi-Drug Resistant Organisms: ESBL Date of last positivie culture/infection: 10/06/20 ESBL E.coli MDRO Source:: Urine Past Surgical History: Appendectomy, Bowel Resection, Cholecystectomy, Heart Catheterization, Joint Replacement, Orthopedic Surgery, Tubal Ligation Additional Past Surgical History / Comment(s): Bronchoscopies/lavages, bowel resection due to diverticulitis 2012, bilat knee arthroscopy, sinus surgery twice, carpal tunnel left wrist, EGD, colonoscopies/polypectomies, back injections, left wrist fracture with pins placed 12-07-2018 and since removed, left hip replaced 2018 Past Anesthesia/Blood Transfusion Reactions: No Reported Reaction Additional Past Anesthesia/Blood Transfusion Reaction / Comment(s): has never received blood Smoking Status: Former smoker - Past Family History Mother Family Medical History: Myocardial Infarction ([place]) Additional Family Medical History / Comment(s): Mother of [place] at age 65 yrs. Sister(s) Family Medical History: Cancer Additional Family Medical History / Comment(s): Twin sister had LUNG cancer. Father Family Medical History: Cancer Additional Family Medical History / Comment(s): Father had cancer in his neck. Medications and Allergies Home Medications Medication Instructions Recorded Confirmed Type Metoprolol Succinate [Toprol XL] 12.5 mg PO DAILY 09/25/17 11/19/20 History Budesonide-Formot 160-4.5 Mcg 2 puff INHALATION RT-BID 02/09/18 11/19/20 History [Symbicort 160-4.5 Mcg Inhaler] hydroCHLOROthiazide [Hydrodiuril] 25 mg PO DAILY 06/04/19 11/19/20 History Albuterol Sulfate [Proair Hfa] 1 - 2 puff INHALATION RT-Q6H PRN 09/28/20 11/19/20 History Ipratropium-Albuterol Nebulize 3 ml INHALATION RT-QID 09/28/20 11/19/20 History [Duoneb 0.5 mg-3 mg/3 ml Soln] amLODIPine [Norvasc] 10 mg PO DAILY 09/28/20 11/19/20 History Cholecalciferol [Vitamin D3 (25 25 mcg PO DAILY 11/19/20 11/19/20 History Mcg = 1000 Iu)] Pantoprazole Sodium [Protonix] 40 mg PO DAILY 11/19/20 11/19/20 History Tetracycline HCl 500 mg PO Q6H 11/19/20 11/19/20 History metroNIDAZOLE [Flagyl] 250 mg PO Q6H 11/19/20 11/19/20 History predniSONE 10 mg PO DIRECTED 11/19/20 11/19/20 History Allergies Allergy/AdvReac Type Severity Reaction Status Date / Time amoxicillin [From Augmentin] Allergy Unknown Verified 11/19/20 09:42 clavulanic acid Allergy Unknown Verified 11/19/20 09:42 [From Augmentin] levofloxacin [From Levaquin] Allergy Unknown Verified 11/19/20 09:42 moxifloxacin HCl Allergy Rash/Hives, Verified 11/19/20 09:42 [From Avelox] SWELLING nitrofurantoin Allergy Rash/Hives Verified 11/19/20 09:42 hydrocodone bitartrate AdvReac Nausea & Verified 11/19/20 09:42 [From Lortab] Vomiting losartan AdvReac Cough Verified 11/19/20 09:42 simvastatin AdvReac muscle pain Verified 11/19/20 09:42 Brpewls-Dxt-Rmh Reductase AdvReac MUSCLE PAIN Verified 11/19/20 09:42 Inhibitor Physical Exam Vitals: Vital Signs Temp Pulse Pulse Resp BP BP Pulse Ox 11/19/20 16:25 87 11/19/20 16:17 87 11/19/20 13:54 97.9 F 89 18 131/62 93 L 11/19/20 11:59 90 11/19/20 11:13 85 24 119/77 95 11/19/20 10:05 81 24 125/67 95 11/19/20 08:25 98.0 F 81 18 130/67 90 L Intake and Output 11/19/20 11/19/20 11/19/20 06:59 14:59 22:59 Other: # Voids 1 Weight 68.946 kg 68.946 kg Results CBC & Chem 7: 11/19/20 08:51 11/19/20 15:55 Labs: Abnormal Lab Results - Last 24 Hours (Table) 11/19/20 11/19/20 11/19/20 Range/Units 08:51 08:51 08:51 APTT 21.4 L (22.0-30.0) sec Sodium 134 L (137-145) mmol/L Potassium 2.8 L (3.5-5.1) mmol/L Chloride 97 L (98-107) mmol/L Glucose 115 H (74-99) mg/dL AST 37 H (14-36) U/L Urine Protein Trace H (Negative) Ur Leukocyte Esterase Trace H (Negative) Urine Bacteria Rare H (None) /hpf Hyaline Casts 8 H (0-2) /lpf Urine Mucus Rare H (None) /hpf 11/19/20 Range/Units 15:55 APTT (22.0-30.0) sec Sodium (137-145) mmol/L Potassium (3.5-5.1) mmol/L Chloride (98-107) mmol/L Glucose 177 H (74-99) mg/dL AST (14-36) U/L Urine Protein (Negative) Ur Leukocyte Esterase (Negative) Urine Bacteria (None) /hpf Hyaline Casts (0-2) /lpf Urine Mucus (None) /hpf Thrombosis Risk Factor Assmnt - Choose All That Apply Any of the Below Risk Factors Present?: Yes Each Factor Represents 1 point: Abnormal pulmonary function (COPD), Obesity (BMI >25), Serious lung disease incl. pneumonia (< 1month) Other Risk Factors: Yes Each Risk Factor Represents 3 Points: Age 75 years or older Other congenital or acquired thrombophilia - If yes, enter type in comment: No Thrombosis Risk Factor Assessment Total Risk Factor Score: 6 Thrombosis Risk Factor Assessment Level: High Risk
[2020-11-19] MEDS ORDERED: SYMBICORT 160-4.5 MCG INHALER INHALATION SCH (20:00)
[2020-11-19] MEDS ORDERED: POTASSIUM CHLORIDE ER 20 MEQ TAB.ER PO SCH (20:00)
[2020-11-19] MEDS: METRONIDAZOLE 250 MG PO SCH (22:24)
[2020-11-20] MEDS: methylPREDNISolone SOD SUCCI 125 MG/2 ML VIAL IV SCH ×4 (00:39→23:17)
[2020-11-20] MEDS: IPRATROPIUM-ALBUTEROL 3 ML NEB INHALATION SCH ×4 (07:30→19:00)
[2020-11-20] MEDS: BUDESONIDE 1 MG/2 ML NEBU INHALATION SCH ×2 (07:30→19:01)
[2020-11-20] MEDS ORDERED: PANTOPRAZOLE 40 MG TABLET PO SCH (07:30)
[2020-11-20] MEDS: FORMOTEROL FUMARATE 20 MCG/2 ML NEBU INHALATION SCH ×2 (07:30→19:00)
[2020-11-20] MEDS ORDERED: POTASSIUM CHLORIDE ER 20 MEQ TAB.ER PO STA (08:43)
[2020-11-20] MEDS: METOPROLOL SUCCINATE (ER) 25 MG TAB.ER.24H PO SCH (09:37)
[2020-11-20] MEDS: amLODIPine 10 MG TAB PO SCH (09:38)
[2020-11-20] MEDS: hydroCHLOROthiazide 25 MG TAB PO SCH (09:38)
[2020-11-20] MEDS: CHOLECALCIFEROL 25 MCG (1000 IU) TABLET PO SCH (09:40)
[2020-11-20] MEDS: METRONIDAZOLE 250 MG PO SCH ×4 (09:42→22:47)
[2020-11-20] MEDS: TETRACYCLINE HCL 500 MG PO SCH ×4 (09:43→22:46)
[2020-11-20] MEDS: ENOXAPARIN 40 MG/0.4 ML SYRINGE SQ SCH (09:45)
[2020-11-20] MEDS: PANTOPRAZOLE 40 MG/10 ML VIAL IVP SCH (09:56)
--- NOTE | 2020-11-20 15:55 | P.PN ---
Subjective Progress Note Date: 11/20/20 Principal diagnosis: Dyspnea 80-year-old female patient known history of COPD was been steroid dependent for many years follow-up through our office on the the care of Dr. Sarabia. The patient also utilizes Symbicort as maintenance in addition to DuoNeb nebulized treatments [id number]. More recently, the patient was having GI symptoms and the patient was found to be positive for H. pylori based on a stool analysis. She was seen by infectious disease and the patient was started on a combination of metronidazole and doxycycline and she was asked to stop the prednisone. Since then, the patient became progressively more short of breath. She is around 2 days ago to have exertional dyspnea and she felt quite weak and fatigued. She also complained of some nausea and emesis. She contacted our office and she was directed to come into the hospital. Based on her blood work, there is hypokalemia with a potassium level of 2.8. No significant metabolic acidosis. The rain virus 19 testing was negative. White cell count is at 10.6. Coagulation profile is within normal limits. No acute cardiopulmonary process. Currently she is already feeling better. On 11/20/2020 patient seen in follow-up. She states she is feeling better today, her breathing has significantly improved, her vital signs have been stable, she's been afebrile, she is on 3 L of oxygen her pulse ox is 100%. She was negative for COVID19, her chest x-ray showed no acute cardiopulmonary p rocess. She continues on bronchodilators, IV steroids and antibiotics, she is improving. She can be switched to oral prednisone considered for discharge home in the next 24 hours Objective - Vital Signs Vital signs: Vital Signs Temp 97.6 F 11/20/20 13:41 Pulse 96 11/20/20 15:40 Resp 18 11/20/20 13:41 BP 145/66 11/20/20 13:41 Pulse Ox 100 11/20/20 13:41 Intake & Output 11/19/20 11/20/20 11/20/20 18:59 06:59 18:59 Intake Total 200 518 Balance 200 518 Weight 68.946 kg Intake: Oral 200 518 Other: Voiding Method Toilet # Voids 1 2 1 - Exam GENERAL EXAM: Alert, very pleasant, 80-year-old white female, on continuous oxygen a pulse ox of 99% comfortable in no apparent distress. HEAD: Normocephalic/atraumatic. EYES: Normal reaction of pupils, equal size. Conjunctiva pink, sclera white. NOSE: Clear with pink turbinates. THROAT: No erythema or exudates. NECK: No masses, no JVD, no thyroid enlargement, no adenopathy. CHEST: No chest wall deformity. Symmetrical expansion. LUNGS: Equal air entry with no crackles, wheeze, rhonchi or dullness. CVS: Regular rate and rhythm, normal S1 and S2, no gallops, no murmurs, no rubs ABDOMEN: Soft, nontender. No hepatosplenomegaly, normal bowel sounds, no guarding or rigidity. EXTREMITIES: No clubbing, no edema, no cyanosis, 2+ pulses and upper and lower extremities. MUSCULOSKELETAL: Muscle strength and tone normal. SPINE: No scoliosis or deformity SKIN: No rashes CENTRAL NERVOUS SYSTEM: Alert and oriented -3. No focal deficits, tone is normal in all 4 extremities. PSYCHIATRIC: Alert and oriented -3. Appropriate affect. Intact judgment and insight. - Labs CBC & Chem 7: 11/19/20 08:51 11/20/20 07:25 Labs: Abnormal Lab Results - Last 24 Hours (Table) 11/19/20 Range/Units 15:55 Glucose 177 H (74-99) mg/dL Assessment and Plan Plan: Assessment: 1 acute on chronic dyspnea possibly secondary to COPD exacerbation. At the same time I see that the patient has some symptoms to suggest steroid withdrawal as the patient has been chronically on steroids and she was taken off the prednisone which made her quite weak, fatigue, and she was having some nausea and tiredness. As such, the possibility of steroid withdrawal needs to be considered. No lab work to support a diagnosis of adrenal insufficiency. 2 advanced COPD with upper lobe changes/bullous changes and the patient has been treated for extensive pneumonias in the past, none for now 3 chronic hypoxic respiratory failure secondary to COPD 4 vague right upper lobe opacity being followed up in our office and the patient a CAT scan of the chest that was done on 09/28/2020 followed by a PET scan that was done on 10/18/2020 showing no evidence of any significant metabolic activity in the right upper lobe. As such, no clear indication of an underlying malignancy. 5 history of smoking 6 hypertension 7 hyperlipidemia 8 H. pylori being treated on outpatient basis with a combination of doxycycline and Flagyl. Plan: She is improving, be switched over to oral prednisone, breathing significantly better, vital signs have been stable, increase activity as tolerated, from p ulmonary perspective patient is stable, continue current medical treatment. From pulmonary perspective she could be considered for discharge home I performed a history & physical examination of the patient and discussed their management with my nurse practitioner, Lor Ortiz. I reviewed the nurse practitioner's note and agree with the documented findings and plan of care. Lung sounds are positive for diminished breath sounds The findings and the impression was discussed with the patient. I attest to the documentation by the nurse practitioner. Time with Patient: Less than 30
--- NOTE | 2020-11-20 20:51 | P.PN ---
Progress Note - Text Progress Note Date: 11/20/20 Chief Complaint: Shortness of breath History of presenting complaint: This is a pleasant 80-year-old patient of Dr. Ariza. 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 Chronic stable medical conditions include hyperlipidemia, hypertension, osteoarthritis, diverticulosis, home oxygen 2 L. patient recently tested positive for H. pylori. She was taken off of steroids that she is for maintenance for a COPD. 44 days she is becoming increasingly short of breath. He got a cough. White phlegm. Finding in the vertebrae. Denies any leg swelling. No change in bowel pattern. Decrease appetite. No fever no chills. Presented to the ER. Because of the medications she is taking for H. pylori she has not been able to eat. Admitted with COPD exacerbation. Started on inhaled steroids, bronchodilators Today-sitting at the edge the bed. Feels her nose is blocked. Has seen ENT previously before. Does use a a afrin spray. Review of systems: Was done for constitutional, cardiovascular, GI, pulmonary. relevant finding as above Active Medications Albuterol/Ipratropium (Ipratropium-Albuterol 3 Ml Neb) 3 ml INHALATION RT-QID [facility] Last Admin: 11/20/20 19:00 Dose: 3 ml Documented by: Albuterol/Ipratropium (Ipratropium-Albuterol 3 Ml Neb) 3 ml INHALATION RT-Q2H PRN PRN Reason: Shortness Of Breath Or Wheezing Amlodipine Besylate (Amlodipine 10 Mg Tab) 10 mg PO DAILY [facility] Last Admin: 11/20/20 09:38 Dose: 10 mg Documented by: Budesonide (Budesonide 1 Mg/2 Ml Nebu) 1 mg INHALATION RT-BID [facility] Last Admin: 11/20/20 19:01 Dose: 1 mg Documented by: Cholecalciferol (Cholecalciferol 25 Mcg (1000 Iu) Tablet) 25 mcg PO DAILY [facility] Last Admin: 11/20/20 09:40 Dose: Not Given Documented by: Enoxaparin Sodium (Enoxaparin 40 Mg/0.4 Ml Syringe) 40 mg SQ DAILY [facility] Last Admin: 11/20/20 09:45 Dose: 40 mg Documented by: Formoterol Fumarate (Formoterol Fumarate 20 Mcg/2 Ml Nebu) 20 mcg INHALATION RT-BID [facility] Last Admin: 11/20/20 19:00 Dose: 20 mcg Documented by: Hydrochlorothiazide (Hydrochlorothiazide 25 Mg Tab) 25 mg PO DAILY [facility] Last Admin: 11/20/20 09:38 Dose: 25 mg Documented by: Methylprednisolone Sodium Succinate (Methylprednisolone Sod Succi 125 Mg/2 Ml Vial) 60 mg IV Q8HR [facility] Last Admin: 11/20/20 16:15 Dose: 60 mg Documented by: Metoprolol Succinate (Metoprolol Succinate (Er) 25 Mg Tab.Er.24h) 12.5 mg PO DAILY [facility] Last Admin: 11/20/20 09:37 Dose: 12.5 mg Documented by: Metronidazole (Patient's Own-Metronidazole 250 Mg Tablet) 250 mg PO QID [facility] Last Admin: 11/20/20 18:37 Dose: 250 mg Documented by: Miscellaneous Information (Potassium Replacement Protocol 1 Each Misc) 1 each MISCELLANE DAILY PRN; Protocol PRN Reason: Per Protocol Patient's Own ( Tetracycline Hcl [ Tetracycline Hcl] 500 Mg Capsule) 500 mg PO QID [facility] Last Admin: 11/20/20 18:37 Dose: 500 mg Documented by: Pantoprazole Sodium (Pantoprazole 40 Mg/10 Ml Vial) 40 mg IVP DAILY [facility] Last Admin: 11/20/20 09:56 Dose: 40 mg Documented by: Past medical history to include: COPD, hyperlipidemia, hypertension, osteoarthritis, pneumonia, diverticulosis, home oxygen 2 L, left arm fracture, GERD, H. pylori, diverticulitis, urinary incontinence Social history: Lives alone. Smoked for about 39 years stopped in 1997. Smoked less than a pack a day. No alcohol. Physical examination: VITAL SIGNS: 97.6, 100, 18, 145/66, 100% on 3 L GENERAL: Sitting of the edge of the bed, breathing better EYES: Pupils equal. Conjunctiva normal. HEENT: External appearance of nose and ears normal, oral cavity grossly normal. NECK: JVD not raised; masses not palpable. HEART: First and second heart sounds are normal; no edema. LUNGS: Respiratory rate increased, decreased breath sounds. ABDOMEN: Soft, nontender, liver spleen not palpable, no masses palpable. PSYCH: Alert and oriented x3; mood and affect anxious - INVESTIGATIONS, reviewed in the clinical context: Fabry 12th: Potassium 3.8 White count 10.6 hemoglobin 14.6 platelets 311 potassium 2.8 bun 9 creatinine 0.59 Troponin I less than 0.012, proBNP 124 Coronavirus [PCR]-not detected EKG tracing personally reviewed by me-normal sinus rhythm with some ST segment changes. Chest x-ray film personally reviewed by me-possibly chronic changes Assessment and plan: -Acute COPD exacerbation in an ex-smoker of the patient's steroids were stopped while getting treatment for H. pylori. Patient started on nebulized bronchodilators, inhaled steroids, inhaled long-acting bronchodilators.-Better -GERD on Protonix -H pylori continue with Flagyl and Protonix -Essential hypertension, continue hydrochlorothiazide Toprol-XL -Primary osteoarthritis, diffuse Tylenol when necessary -Colonic diverticulosis , asymptomatic -chronic hypoxic respiratory failure on home oxygen 2 L Additionally: Doing better. Could be switched to oral prednisone. Home either later today or tomorrow. Decrease FiO2
[2020-11-20] MEDS ORDERED: LORazepam 0.5 MG TAB PO ONE (22:57)
[2020-11-21] MEDS: BUDESONIDE 1 MG/2 ML NEBU INHALATION SCH (08:17)
[2020-11-21] MEDS: IPRATROPIUM-ALBUTEROL 3 ML NEB INHALATION SCH ×3 (08:17→15:34)
[2020-11-21] MEDS: FORMOTEROL FUMARATE 20 MCG/2 ML NEBU INHALATION SCH (08:17)
[2020-11-21] MEDS: methylPREDNISolone SOD SUCCI 125 MG/2 ML VIAL IV SCH (08:43)
[2020-11-21] MEDS: amLODIPine 10 MG TAB PO SCH (08:44)
[2020-11-21] MEDS: METOPROLOL SUCCINATE (ER) 25 MG TAB.ER.24H PO SCH (08:44)
[2020-11-21] MEDS: PANTOPRAZOLE 40 MG/10 ML VIAL IVP SCH (08:44)
[2020-11-21] MEDS: hydroCHLOROthiazide 25 MG TAB PO SCH (08:44)
[2020-11-21] MEDS: CHOLECALCIFEROL 25 MCG (1000 IU) TABLET PO SCH (08:44)
[2020-11-21] MEDS: ENOXAPARIN 40 MG/0.4 ML SYRINGE SQ SCH (08:44)
[2020-11-21] MEDS: METRONIDAZOLE 250 MG PO SCH ×2 (08:45→12:32)
[2020-11-21] MEDS: TETRACYCLINE HCL 500 MG PO SCH ×2 (08:45→12:32)
[2020-11-21 12:36] LABS: African American GFR (CKD) 100.5 (60.0-200.0); Anion Gap 9.5 mmol/L (4.00-12.00); Calcium 9.2 mg/dL (8.7-10.3); Carbon Dioxide 27.5 mmol/L (21.6-31.8); Non-African American GFR(CKD) 86.7 (60.0-200.0); Potassium 4.3 mmol/L (3.5-5.5)
--- NOTE | 2020-11-21 13:27 | P.PN ---
Subjective Progress Note Date: 11/21/20 80-year-old female patient known history of COPD was been steroid dependent for many years follow-up through our office on the the care of Dr. Sarabia. The patient also utilizes Symbicort as maintenance in addition to DuoNeb nebulized treatments [id number]. More recently, the patient was having GI symptoms and the patient was found to be positive for H. pylori based on a stool analysis. She was seen by infectious disease and the patient was started on a combination of metronidazole and doxycycline and she was asked to stop the prednisone. Since then, the patient became progressively more short of breath. She is around 2 days ago to have exertional dyspnea and she felt quite weak and fatigued. She also complained of some nausea and emesis. She contacted our office and she was directed to come into the hospital. Based on her blood work, there is hypokalemia with a potassium level of 2.8. No significant metabolic acidosis. The rain virus 19 testing was negative. White cell count is at 10.6. Coagulation profile is within normal limits. No acute cardiopulmonary process. Currently she is already feeling better. On 11/20/2020 patient seen in follow-up. She states she is feeling better today, her breathing has significantly improved, her vital signs have been stable, she's been afebrile, she is on 3 L of oxygen her pulse ox is 100%. She was negative for COVID19, her chest x-ray showed no acute cardiopulmonary process. She continues on bronchodilators, IV steroids and antibiotics, she is improving. She can be switched to oral prednisone considered for discharge home in the next 24 hours On 11/21/2020 I'm seeing the patient for a follow-up. Overall respiratory status is back to her baseline. I think she has no major issues for now. She is still worried about her H. pylori and she wants to talk to infectious disease about a treatment course. I think she can go back on her maintenance prednisone of 10 mg by mouth daily. She received IV Solu Medrol in the hospital and I'll recommend switching her back to 10 mg of prednisone. Objective - Vital Signs Vital signs: Vital Signs Temp 98.2 F 11/21/20 07:43 Pulse 91 11/21/20 11:43 Resp 20 11/21/20 07:43 BP 152/74 11/21/20 07:43 Pulse Ox 93 L 11/21/20 07:43 Intake & Output 11/20/20 11/21/20 11/21/20 18:59 06:59 18:59 Intake Total 814 Balance 814 Intake: Oral 814 Other: Voiding Method Toilet Toilet # Voids 6 1 # Bowel Movements 3 - Exam GENERAL EXAM: Alert, very pleasant, 80-year-old white female, on continuous oxygen a pulse ox of 99% comfortable in no apparent distress. HEAD: Normocephalic/atraumatic. EYES: Normal reaction of pupils, equal size. Conjunctiva pink, sclera white. NOSE: Clear with pink turbinates. THROAT: No erythema or exudates. NECK: No masses, no JVD, no thyroid enlargement, no adenopathy. CHEST: No chest wall deformity. Symmetrical expansion. LUNGS: Equal air entry with no crackles, wheeze, rhonchi or dullness. CVS: Regular rate and rhythm, normal S1 and S2, no gallops, no murmurs, no rubs ABDOMEN: Soft, nontender. No hepatosplenomegaly, normal bowel sounds, no guardi ng or rigidity. EXTREMITIES: No clubbing, no edema, no cyanosis, 2+ pulses and upper and lower extremities. MUSCULOSKELETAL: Muscle strength and tone normal. SPINE: No scoliosis or deformity SKIN: No rashes CENTRAL NERVOUS SYSTEM: Alert and oriented -3. No focal deficits, tone is normal in all 4 extremities. PSYCHIATRIC: Alert and oriented -3. Appropriate affect. Intact judgment and insight. - Labs CBC & Chem 7: 11/19/20 08:51 11/21/20 09:00 Labs: Abnormal Lab Results - Last 24 Hours (Table) 11/21/20 Range/Units 09:00 BUN/Creatinine Ratio 35.00 H (12.00-20.00) Ratio Glucose 193 H (70-110) mg/dL Assessment and Plan Plan: 1 acute on chronic dyspnea possibly secondary to COPD exacerbation. At the same time I see that the patient has some symptoms to suggest steroid withdrawal as the patient has been chronically on steroids and she was taken off the p rednisone which made her quite weak, fatigue, and she was having some nausea and tiredness. As such, the possibility of steroid withdrawal needs to be considered. No lab work to support a diagnosis of adrenal insufficiency. 2 advanced COPD with upper lobe changes/bullous changes and the patient has been treated for extensive pneumonias in the past, none for now 3 chronic hypoxic respiratory failure secondary to COPD 4 vague right upper lobe opacity being followed up in our office and the patient a CAT scan of the chest that was done on 09/28/2020 followed by a PET scan that was done on 10/18/2020 showing no evidence of any significant metabolic activity in the right upper lobe. As such, no clear indication of an underlying malignancy. 5 history of smoking 6 hypertension 7 hyperlipidemia 8 H. pylori being treated on outpatient basis with a combination of doxycycline and Flagyl. Plan Stop the IV Solu Medrol and switch this patient to prednisone 10 mg by mouth daily and she can be essentially discharged home today and follow-up with infectious disease in follow-up with pulmonary. Into the treatment for H. pylori. I do not think the prednisone of 10 mg for the fact her treatment course. Stopping the prednisone was subject this patient to worsening shortness of breath and adrenal insufficiency as the patient has been steroid dependent for years.
[2020-11-21] MEDS ORDERED: predniSONE 10 MG TAB PO SCH (13:30)
[2020-11-21 14:53] VITALS: BP 135/56; PULSE 94; RESP 18; TEMP 98
--- NOTE | 2020-11-21 23:50 | P.DS ---
Providers Date of admission: 11/19/20 11:33 Expected date of discharge: 11/21/20 Attending physician: Gilberto Devi Consults: 11/19/20 11:33 Consult Physician Routine Consulting Provider: Rip Barragan Consult Reason/Comments: Dyspnea, COPD Do you want consulting provider notified?: Yes Primary care physician: Neptali Ariza [facility] Course: Chief Complaint: Shortness of breath History of presenting complaint: This is a pleasant 80-year-old patient of Dr. Ariza. 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 Chronic stable medical conditions include hyperlipidemia, hypertension, osteoarthritis, diverticulosis, home oxygen 2 L. patient recently tested positive for H. pylori. She was taken off of steroids that she is for maintenance for a COPD. 44 days she is becoming increasingly short of breath. He got a cough. White phlegm. Finding in the vertebrae. Denies any leg swelling. No change in bowel pattern. Decrease appetite. No fever no chills. Presented to the ER. Because of the medications she is taking for H. pylori she has not been able to eat. Admitted with COPD exacerbation. Started on inhaled steroids, bronchodilators Today-feeling much better today. Eating well. Discussed with Dr. Barragan. Yandel to HECTOR. Discussed the patient. Patient to continue prednisone as per Dr. Barragan Tar Chaser: Dr. Barragan from pulmonary Past medical history to include: COPD, hyperlipidemia, hypertension, osteoarthritis, pneumonia, diverticulosis, home oxygen 2 L, left arm fracture, GERD, H. pylori, diverticulitis, urinary incontinence Social history: Lives alone. Smoked for about 39 years stopped in 1997. Smoked less than a pack a day. No alcohol. Physical examination: VITAL SIGNS: 98, 94, 18, 1 35 x 56, 94% on 3 L GENERAL: Sitting of the edge of the bed, comfortable EYES: Pupils equal. Conjunctiva normal. HEENT: External appearance of nose and ears normal, oral cavity grossly normal. NECK: JVD not raised; masses not palpable. HEART: First and second heart sounds are normal; no edema. LUNGS: Respiratory rate increased, decreased breath sounds. ABDOMEN: Soft, nontender, liver spleen not palpable, no masses palpable. PSYCH: Alert and oriented x3; mood and affect anxious - INVESTIGATIONS, reviewed in the clinical context: November 21: Potassium 4.3 creatinine 0.6 November 20: Potassium 3.8 White count 10.6 hemoglobin 14.6 platelets 311 potassium 2.8 bun 9 creatinine 0.59 Troponin I less than 0.012, proBNP 124 Coronavirus [PCR]-not detected EKG tracing personally reviewed by me-normal sinus rhythm with some ST segment changes. Chest x-ray film personally reviewed by me-possibly chronic changes Assessment and plan: -Acute COPD exacerbation in an ex-smoker of the patient's steroids were stopped while getting treatment for H. pylori. Patient started on nebulized bronchodilators, inhaled steroids, inhaled long-acting bronchodilators.-Better -GERD on Protonix -H pylori continue with Flagyl and Protonix -Essential hypertension, continue hydrochlorothiazide Toprol-XL -Primary osteoarthritis, diffuse Tylenol when necessary -Colonic diverticulosis , asymptomatic -chronic hypoxic respiratory failure on home oxygen 2 L Disposition: Home Patient Condition at Discharge: Fair Plan - Discharge Summary Discharge Rx Participant: No New Discharge Prescriptions: Continue Metoprolol Succinate [Toprol XL] 12.5 mg PO DAILY Budesonide-Formot 160-4.5 Mcg [Symbicort 160-4.5 Mcg Inhaler] 2 puff INHAL ATION RT-BID hydroCHLOROthiazide [Hydrodiuril] 25 mg PO DAILY Albuterol Sulfate [Proair Hfa] 1 - 2 puff INHALATION RT-Q6H PRN PRN Reason: Shortness Of Breath amLODIPine [Norvasc] 10 mg PO DAILY Ipratropium-Albuterol Nebulize [Duoneb 0.5 mg-3 mg/3 ml Soln] 3 ml INHALATION RT-QID predniSONE 10 mg PO DIRECTED Pantoprazole Sodium [Protonix] 40 mg PO DAILY Tetracycline HCl 500 mg PO Q6H Cholecalciferol [Vitamin D3 (25 Mcg = 1000 Iu)] 25 mcg PO DAILY metroNIDAZOLE [Flagyl] 250 mg PO Q6H Discharge Medication List Metoprolol Succinate [Toprol XL] 12.5 mg PO DAILY 09/25/17 [History] Budesonide-Formot 160-4.5 Mcg [Symbicort 160-4.5 Mcg Inhaler] 2 puff INHALATION RT-BID 02/09/18 [History] hydroCHLOROthiazide [Hydrodiuril] 25 mg PO DAILY 06/04/19 [History] Albuterol Sulfate [Proair Hfa] 1 - 2 puff INHALATION RT-Q6H PRN 09/28/20 [History] Ipratropium-Albuterol Nebulize [Duoneb 0.5 mg-3 mg/3 ml Soln] 3 ml INHALATION RT-QID 09/28/20 [History] amLODIPine [Norvasc] 10 mg PO DAILY 09/28/20 [History] Cholecalciferol [Vitamin D3 (25 Mcg = 1000 Iu)] 25 mcg PO DAILY 11/19/20 [History] Pantoprazole Sodium [Protonix] 40 mg PO DAILY 11/19/20 [History] Tetracycline HCl 500 mg PO Q6H 11/19/20 [History] metroNIDAZOLE [Flagyl] 250 mg PO Q6H 11/19/20 [History] predniSONE 10 mg PO DIRECTED 11/19/20 [History] Follow up Appointment(s)/Referral(s): Neptali Ariza DO [Primary Care Provider] - 1-2 days Rip Barragan MD [STAFF PHYSICIAN] - 2 Weeks Patient Instructions/Handouts: COPD (Chronic Obstructive Pulmonary Disease) (IP) Discharge Disposition: HOME SELF-CARE
[2020-11-22] MEDS ORDERED: PANTOPRAZOLE 40 MG TABLET PO SCH (09:00)
== END 2020-11-21 15:38 | disposition home or self-care (01) ==
LOC: EC 08:23 → INTOOBSV 11:33 → 4SSUR 11:33 → UNDODISIN 11-21 15:38
PROVIDERS: ADMIT Hospitalist; ATTEND Hospitalist
DX: J44.1 Chronic obstructive pulmonary disease with (acute) exacerbation (principal); K21.9 Gastro-esophageal reflux disease without esophagitis; I10 Essential (primary) hypertension; M19.91 Primary osteoarthritis, unspecified site; J96.11 Chronic respiratory failure with hypoxia; K57.90 Diverticulosis of intestine, part unspecified, without perforation or abscess without bleeding; E78.5 Hyperlipidemia, unspecified; R32 Unspecified urinary incontinence; G89.29 Other chronic pain; E66.9 Obesity, unspecified; Z68.26 Body mass index [BMI] 26.0-26.9, adult; R11.2 Nausea with vomiting, unspecified; E87.6 Hypokalemia; M51.26 Other intervertebral disc displacement, lumbar region; Z87.01 Personal history of pneumonia (recurrent); Z99.81 Dependence on supplemental oxygen; Z20.822 Contact with and (suspected) exposure to COVID-19; Z87.440 Personal history of urinary (tract) infections; Z87.19 Personal history of other diseases of the digestive system; Z90.49 Acquired absence of other specified parts of digestive tract; Z16.24 Resistance to multiple antibiotics; Z86.010 Personal history of colon polyps; Z87.891 Personal history of nicotine dependence; Z79.899 Other long term (current) drug therapy; Z79.51 Long term (current) use of inhaled steroids; Z79.52 Long term (current) use of systemic steroids; Z88.1 Allergy status to other antibiotic agents; Z88.5 Allergy status to narcotic agent; Z88.0 Allergy status to penicillin; Z88.8 Allergy status to other drugs, medicaments and biological substances; Z96.642 Presence of left artificial hip joint; Z82.49 Family history of ischemic heart disease and other diseases of the circulatory system; Z80.1 Family history of malignant neoplasm of trachea, bronchus and lung
CPT/HCPCS: 96376 ×3; 96366 ×2; 96372 ×3; 96375 ×2; 96361; 96365; 99285; 36415; 94640 ×6; 93005; 83880; 80053; 80048 ×2; 83605; 83735; 84132; 84484; 85025; 85610; 85730; 81001; 87635; 71046; G0378 ×3; J2930 ×3; J3480; J2405; J1650 ×3; J7512; C9113 ×3

== ENCOUNTER 2020-12-08 17:37 | Inpatient (IN) | payer MEDICARE ==
--- NOTE | 2020-12-08 18:09 | ED ---
General Adult HPI - General Chief complaint: Shortness of Breath Stated complaint: SOB Time Seen by Provider: 12/08/20 17:54 Source: patient Mode of arrival: wheelchair Limitations: no limitations - History of Present Illness Initial comments: Dictation was produced using [employer] dictation software. please excuse any grammatical, word or spelling errors. This patient was cared for during a federal and state declared state of emergency secondary to Covid 19 Chief Complaint: 80-year-old female presents with dyspnea times one week History of Present Illness: Patient is 80-year-old female she has past medical history of COPD. She has established care with lung doctor. Patient states she's been feeling short of breath for the last week. Patient states that her symptoms are exertional. She was also follow-up with her lung doctor however hasn't had her appointment yet. She states that she wanted to be evaluated today. Patient states she has a dry throat. Denies any runny nose, sore throat. She does have a dry nonproductive cough. No constitutional symptoms. Denies any calf pain. No orthopnea. No swelling of the legs. Patient currently being treated for helical bacteria pylori. Patient has not had a blood clot in the past. The ROS documented in this emergency department record has been reviewed and confirmed by me. Those systems with pertinent positive or negative responses have been documented in the HPI. All other systems are other negative and/or noncontributory. PHYSICAL EXAM: General Impression: Alert and oriented x3, not in acute distress HEENT: Normocephalic atraumatic, extra-ocular movements intact, pupils equal and reactive to light bilaterally, mucous membranes moist. Cardiovascular: Heart regular rate and rhythm Chest: Able to complete full sentences, no retractions, no tachypnea, lungs clear to auscultation bilaterally Abdomen: abdomen soft, non-tender, non-distended, no organomegaly Musculoskeletal: Pulses present and equal in all extremities, no peripheral edema Motor: no focal deficits noted Neurological: CN II-XII grossly intact, no focal motor or sensory deficits noted Skin: Intact with no visualized rashes Psych: Normal affect and mood ED course: 80-year-old male presents with dyspnea. Vital signs upon arrival shows respiratory 26, 92% on 2 L nasal cannula. His well-appearing. Lungs are clear to auscultation bilaterally. At this point is not entirely obvious of patient's symptoms are from COPD. Laboratory evaluation obtained. CBC, coag panel is unremarkable. D-dimer is negative d-dimer when adjusted for age. Metabolic panel is unremarkable. Troponins negative. Coronavirus negative. X-ray shows mild pulmonary interstitial infiltrates consistent with fibrosis. No heart failure. Disposition options are discussed patient. She is uncomfortable being discharged given that her dyspnea is progressive. Patient states she's having really bad difficulty ambulating even for short distances. He was placed on entirely clear what is causing patient's dyspnea. She was admitted for medical monitoring would consultation cardiology and pulmonology. At this point there is some concern for unstable angina or that there are no other obvious diagnoses. EKG interpretation: Ventricular rate 80, normal sinus rhythm, TX interval 152, QRS 80, QTc 431. No TX prolongation, no QTC prolongation, no ST or T-wave changes noted. Overall, this EKG is unremarkable - Related Data Home Medications Medication Instructions Recorded Confirmed Metoprolol Succinate [Toprol XL] 12.5 mg PO DAILY 09/25/17 12/08/20 Budesonide-Formot 160-4.5 Mcg 2 puff INHALATION RT-BID 02/09/18 12/08/20 [Symbicort 160-4.5 Mcg Inhaler] hydroCHLOROthiazide [Hydrodiuril] 25 mg PO DIRECTED 06/04/19 12/08/20 Albuterol Sulfate [Proair Hfa] 1 - 2 puff INHALATION RT-Q6H PRN 09/28/20 12/08/20 Ipratropium-Albuterol Nebulize 3 ml INHALATION RT-QID 09/28/20 12/08/20 [Duoneb 0.5 mg-3 mg/3 ml Soln] amLODIPine [Norvasc] 10 mg PO DAILY 09/28/20 12/08/20 Cholecalciferol [Vitamin D3 (25 25 mcg PO DAILY 11/19/20 12/08/20 Mcg = 1000 Iu)] Pantoprazole Sodium [Protonix] 40 mg PO DAILY 11/19/20 12/08/20 predniSONE 10 mg PO DAILY 11/19/20 12/08/20 ALPRAZolam [Xanax] 0.25 mg PO DAILY PRN 12/08/20 12/08/20 Mupirocin 2% Oint [Bactroban 2% 1 applic EA NOSTRIL TID 12/08/20 12/08/20 Oint] Allergies Allergy/AdvReac Type Severity Reaction Status Date / Time amoxicillin [From Augmentin] Allergy Unknown Verified 12/08/20 18:28 clavulanic acid Allergy Unknown Verified 12/08/20 18:28 [From Augmentin] levofloxacin [From Levaquin] Allergy Unknown Verified 12/08/20 18:28 moxifloxacin HCl Allergy Rash/Hives, Verified 12/08/20 18:28 [From Avelox] SWELLING nitrofurantoin Allergy Rash/Hives Verified 12/08/20 18:28 hydrocodone bitartrate AdvReac Nausea & Verified 12/08/20 18:28 [From Lortab] Vomiting losartan AdvReac Cough Verified 12/08/20 18:28 simvastatin AdvReac muscle pain Verified 12/08/20 18:28 [id number] Reductase AdvReac MUSCLE PAIN Verified 12/08/20 18:28 Inhibitor Review of Systems ROS Statement: Those systems with pertinent positive or pertinent negative responses have been documented in the HPI. ROS Other: All systems not noted in ROS Statement are negative. Past Medical History Past Medical History: Asthma, COPD, GERD/Reflux, GI Bleed, Hyperlipidemia, Hypertension, Osteoarthritis (OA), Pneumonia, Respiratory Disorder Additional Past Medical History / Comment(s): Pt currently being treated for H Pylori, COPD with bullous changes in the upper lobes bilaterally, chronic hypoxic respiratory failure, home oxygen at 2L/NC mostly ATC, lower GI bleeding past, chronic low back pain-much improved since hip replaced, herniated lumbar discs, arthritis in multiple joints, diverticulitis, urinary leakage, UTI History of Any Multi-Drug Resistant Organisms: ESBL Date of last positivie culture/infection: 10/06/20 ESBL E.coli MDRO Source:: Urine Past Surgical History: Appendectomy, Bowel Resection, Cholecystectomy, Heart Catheterization, Joint Replacement, Orthopedic Surgery, Tubal Ligation Additional Past Surgical History / Comment(s): Bronchoscopies/lavages, bowel resection due to diverticulitis 2012, bilat knee arthroscopy, sinus surgery twic e, carpal tunnel left wrist, EGD, colonoscopies/polypectomies, back injections, left wrist fracture with pins placed 12-07-2018 and since removed, left hip replaced 2018 Past Anesthesia/Blood Transfusion Reactions: No Reported Reaction Additional Past Anesthesia/Blood Transfusion Reaction / Comment(s): has never received blood Past Psychological History: Anxiety Smoking Status: Former smoker Past Alcohol Use History: None Reported Past Drug Use History: None Reported - Past Family History Mother Family Medical History: Myocardial Infarction ([place]) Additional Family Medical History / Comment(s): Mother of [place] at age 65 yrs. Sister(s) Family Medical History: Cancer Additional Family Medical History / Comment(s): Twin sister had LUNG cancer. Father Family Medical History: Cancer Additional Family Medical History / Comment(s): Father had cancer in his neck. General Exam Limitations: no limitations Course Vital Signs 12/08/20 12/08/20 12/08/20 17:38 19:02 19:06 Temperature 97.9 F Pulse Rate 90 78 89 Respiratory 26 H 18 18 Rate Blood Pressure 142/62 O2 Sat by Pulse 92 L Oximetry Medical Decision Making - Lab Data Result diagrams: 12/08/20 18:05 12/08/20 18:05 Lab Results 12/08/20 12/08/20 12/08/20 Range/Units 18:05 18:05 18:05 WBC 7.4 (3.8-10.6) k/uL RBC 4.75 (3.80-5.40) m/uL Hgb 13.1 (11.4-16.0) gm/dL Hct 39.8 (34.0-46.0) % MCV 83.8 (80.0-100.0) fL MCH 27.5 (25.0-35.0) pg MCHC 32.8 (31.0-37.0) g/dL RDW 16.6 H (11.5-15.5) % Plt Count 311 (150-450) k/uL MPV 7.5 Neutrophils % 67 % Lymphocytes % 20 % Monocytes % 7 % Eosinophils % 3 % Basophils % 1 % Neutrophils # 5.0 (1.3-7.7) k/uL Lymphocytes # 1.5 (1.0-4.8) k/uL Monocytes # 0.5 (0-1.0) k/uL Eosinophils # 0.2 (0-0.7) k/uL Basophils # 0.1 (0-0.2) k/uL Anisocytosis Slight PT 9.9 (9.0-12.0) sec INR 0.9 (<1.2) APTT 19.7 L (22.0-30.0) sec D-Dimer 0.64 H (<0.60) mg/L FEU Sodium 139 (137-145) mmol/L Potassium 3.9 (3.5-5.1) mmol/L Chloride 105 (98-107) mmol/L Carbon Dioxide 26 (22-30) mmol/L Anion Gap 8 mmol/L BUN 22 H (7-17) mg/dL Creatinine 0.91 (0.52-1.04) mg/dL Est GFR (CKD-EPI)AfAm 69 (>60 ml/min/1.73 sqM) Est GFR (CKD-EPI)NonAf 60 (>60 ml/min/1.73 sqM) Glucose 149 H (74-99) mg/dL Calcium 9.4 (8.4-10.2) mg/dL Magnesium 2.0 (1.6-2.3) mg/dL Total Bilirubin 0.6 (0.2-1.3) mg/dL AST 30 (14-36) U/L ALT 30 (4-34) U/L Alkaline Phosphatase 62 (38-126) U/L Troponin I (0.000-0.034) ng/mL NT-Pro-B Natriuret Pep pg/mL Total Protein 6.1 L (6.3-8.2) g/dL Albumin 3.6 (3.5-5.0) g/dL Coronavirus (PCR) (Not Detectd) 12/08/20 12/08/20 12/08/20 Range/Units 18:05 18:20 18:20 WBC (3.8-10.6) k/uL RBC (3.80-5.40) m/uL Hgb (11.4-16.0) gm/dL Hct (34.0-46.0) % MCV (80.0-100.0) fL MCH (25.0-35.0) pg MCHC (31.0-37.0) g/dL RDW (11.5-15.5) % Plt Count (150-450) k/uL MPV Neutrophils % % Lymphocytes % % Monocytes % % Eosinophils % % Basophils % % Neutrophils # (1.3-7.7) k/uL Lymphocytes # (1.0-4.8) k/uL Monocytes # (0-1.0) k/uL Eosinophils # (0-0.7) k/uL Basophils # (0-0.2) k/uL Anisocytosis PT (9.0-12.0) sec INR (<1.2) APTT (22.0-30.0) sec D-Dimer (<0.60) mg/L FEU Sodium (137-145) mmol/L Potassium (3.5-5.1) mmol/L Chloride (98-107) mmol/L Carbon Dioxide (22-30) mmol/L Anion Gap mmol/L BUN (7-17) mg/dL Creatinine (0.52-1.04) mg/dL Est GFR (CKD-EPI)AfAm (>60 ml/min/1.73 sqM) Est GFR (CKD-EPI)NonAf (>60 ml/min/1.73 sqM) Glucose (74-99) mg/dL Calcium (8.4-10.2) mg/dL Magnesium (1.6-2.3) mg/dL Total Bilirubin (0.2-1.3) mg/dL AST (14-36) U/L ALT (4-34) U/L Alkaline Phosphatase (38-126) U/L Troponin I <0.012 (0.000-0.034) ng/mL NT-Pro-B Natriuret Pep 236 pg/mL Total Protein (6.3-8.2) g/dL Albumin (3.5-5.0) g/dL Coronavirus (PCR) Not Detected (Not Detectd) Disposition Clinical Impression: Dyspnea Disposition: ADMITTED IP TO THIS HOSP Condition: Fair Referrals: Neptali Ariza DO [Primary Care Provider] - 1-2 days Decision Time: 19:20
[2020-12-08 18:27] LABS: Anisocytosis Slight; Basophils # (A) 0.1 k/uL (0-0.2); Basophils % (A) 1 %; Eosinophils # (A) 0.2 k/uL (0-0.7); Eosinophils % (A) 3 %; HCT 39.8 % (34.0-46.0); HGB 13.1 gm/dL (11.4-16.0); Lymphocytes # (A) 1.5 k/uL (1.0-4.8); Lymphocytes % (A) 20 %; MCH 27.5 pg (25.0-35.0); MCHC 32.8 g/dL (31.0-37.0); MCV 83.8 fL (80.0-100.0); Mean Platelet Volume 7.5; Monocytes # (A) 0.5 k/uL (0-1.0); Monocytes % (A) 7 %; Neutrophils % (A) 67 %; Platelet Count 311 k/uL (150-450); RBC 4.75 m/uL (3.80-5.40); RDW 16.6 % (11.5-15.5); WBC 7.4 k/uL (3.8-10.6)
[2020-12-08 18:38] LABS: Albumin 3.6 g/dL (3.5-5.0); Calcium 9.4 mg/dL (8.4-10.2); Potassium 3.9 mmol/L (3.5-5.1); Total Bilirubin 0.6 mg/dL (0.2-1.3); Total Protein 6.1 g/dL (6.3-8.2)
--- NOTE | 2020-12-08 18:44 | XR ---
EXAMINATION TYPE: XR chest 1V portable DATE OF EXAM: 12/08/2020 COMPARISON: 11/19/2020 HISTORY: Short of breath TECHNIQUE: Single view FINDINGS: There is some coarse interstitial density in the lower lung schulz. There is no heart failu re. Thoracic aorta is atheromatous. There is no pleural effusion. There are chest leads. IMPRESSION: Mild pulmonary interstitial infiltrates consistent with fibrosis similar to old exam. No heart failure seen.
[2020-12-08 18:53] LABS: INR 0.9 (<1.2); Prothrombin Time 9.9 sec (9.0-12.0)
[2020-12-08] MEDS: IPRATROPIUM-ALBUTEROL 3 ML NEB INHALATION STA (19:01)
[2020-12-08 19:04] LABS: Partial Thromboplastin Time 19.7 sec (22.0-30.0)
[2020-12-08 19:06] LABS: D-Dimer 0.64 mg/L FEU (<0.60)
[2020-12-08] MEDS ORDERED: dexAMETHasone 4 MG TAB PO STA (19:09)
[2020-12-08] MEDS ORDERED: ASPIRIN 81 MG PO STA (19:16)
[2020-12-08] MEDS ORDERED: NITROGLYCERIN SL TABS 0.4 MG TAB SUBLINGUAL PRN (19:16)
[2020-12-09] MEDS: hydroCHLOROthiazide 25 MG TAB PO SCH (08:09)
[2020-12-09] MEDS: METOPROLOL SUCCINATE (ER) 25 MG TAB.ER.24H PO SCH (08:09)
[2020-12-09] MEDS: amLODIPine 10 MG TAB PO SCH (08:09)
[2020-12-09] MEDS ORDERED: ASPIRIN 325 MG TAB PO SCH (09:00)
--- NOTE | 2020-12-09 09:26 | P.CNPUL ---
History of Present Illness Consult date: 12/09/20 Reason for consult: dyspnea, COPD History of present illness: 80-year-old female patient known history of COPD was been steroid dependent for many years follow-up through our office on the the care of Dr. Sarabia. The p atient also utilizes Symbicort as maintenance in addition to DuoNeb nebulized treatments [id number]. The hospital approximately 3 weeks ago where she can for shortness of breath after quitting her steroids. Note that the patient remains on prednisone for years she was investigated with the medication as well as being treated for a H. pylori the stomach infection. According that she became more short of breath. She had a brief hospitalization which was given systemic steroids and she was optimized and she was discharged home. She came in for a similar problem worsening shortness of breath and pain across the lateral part of the chest posteriorly and laterally above the flank. The pain is around 8 out of 10 in severity, very much reproducible upon palpating the involved area. She states that she was coughing for the past 3-4 days. No hemoptysis. No pleurisy.. 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 Chest x-ray was consistent with COPD. Cardiac enzymes were negative. BNP level was nonelevated. COVID 19 testing was negative. Note the time of her discharge from the hospital 3 weeks ago, the patient was given prednisone burst taper, she was asked to complete a course of tetracycline and metronidazole for H. pylori. She was admitted on Symbicort and albuterol nebulized treatments on a daily basis regarding her COPD. Currently she has no fever. No chills. Cardiac enzymes are negative. Electrodes are all within normal limits. D-dimer level is low. Review of Systems Constitutional: Reports fatigue, Reports weakness Eyes: denies blurred vision, denies decreased vision Ears: deny: decreased hearing Ears, nose, mouth and throat: Denies headache, Denies sore throat Cardiovascular: Reports dyspnea on exertion, Reports high blood pressure, Rep orts shortness of breath, the patient has a chest wall pain on the posterior lateral part of her left chest on Respiratory: Reports cough, Reports dyspnea, Reports home oxygen, Reports wheezing Gastrointestinal: Denies abdominal pain, Denies diarrhea, Denies nausea, Denies vomiting Genitourinary: Denies dysuria, Denies hematuria Musculoskeletal: Reports fractures Musculoskeletal: left: wrist pain (Recent fracture with repair 12/07/2018) Integumentary: Denies pruritus, Denies rash Neurological: Denies numbness, Denies weakness Psychiatric: Denies anxiety, Denies depression Endocrine: Denies fatigue, Denies weight change Hematologic/Lymphatic: Reports as per HPI Allergic/Immunologic: Reports as per HPI Past Medical History Past Medical History: Asthma, COPD, GERD/Reflux, GI Bleed, Hyperlipidemia, Hypertension, Osteoarthritis (OA), Respiratory Disorder Additional Past Medical History / Comment(s): Pt currently being treated for H Pylori, COPD with bullous changes in the upper lobes bilaterally, chronic hypoxic respiratory failure, home oxygen at 2L/min, lower GI bleeding past, chronic low back pain-much improved since hip replaced, herniated lumbar discs, arthritis in multiple joints, diverticulosis/ diverticulitis, urinary leakage, UTI History of Any Multi-Drug Resistant Organisms: ESBL Date of last positivie culture/infection: 10/06/20 ESBL E.coli MDRO Source:: Urine Past Surgical History: Appendectomy, Bowel Resection, Cholecystectomy, Heart Catheterization, Joint Replacement, Orthopedic Surgery, Tubal Ligation Additional Past Surgical History / Comment(s): Bronchoscopies/lavages, bowel resection due to diverticulitis 2012, bilat knee arthroscopy, sinus surgery twice, carpal tunnel left wrist, EGD, colonoscopies/polypectomies, back injections, left wrist fracture with pins placed 12-07-2018 and since removed, left hip replaced 2018 Past Anesthesia/Blood Transfusion Reactions: No Reported Reaction Additional Past Anesthesia/Blood Transfusion Reaction / Comment(s): has never received blood Past Psychological History: Anxiety Additional Psychological History / Comment(s): Pt lives alone. She is independent. She owns a walker and cane but does not need to use them. She drives. She has home 02 2 liters n/c mostly ATC and a concentrator. She has a nebulizer. Smoking Status: Former smoker Past Alcohol Use History: None Reported Additional Past Alcohol Use History / Comment(s): QUIT SMOKING 1997, STARTED AGE 18(1957) smoked <1ppd when she smoked Past Drug Use History: None Reported - Past Family History Mother Family Medical History: Myocardial Infarction ([place]) Additional Family Medical History / Comment(s): Mother of [place] at age 65 yrs. Sister(s) Family Medical History: Cancer Additional Family Medical History / Comment(s): Twin sister had LUNG cancer. Father Family Medical History: Cancer Additional Family Medical History / Comment(s): Father had cancer in his neck. Medications and Allergies Home Medications Medication Instructions Recorded Confirmed Type Metoprolol Succinate [Toprol XL] 12.5 mg PO DAILY 09/25/17 12/08/20 History Budesonide-Formot 160-4.5 Mcg 2 puff INHALATION RT-BID 02/09/18 12/08/20 History [Symbicort 160-4.5 Mcg Inhaler] hydroCHLOROthiazide [Hydrodiuril] 25 mg PO DIRECTED 06/04/19 12/08/20 History Albuterol Sulfate [Proair Hfa] 1 - 2 puff INHALATION RT-Q6H PRN 09/28/20 12/08/20 History Ipratropium-Albuterol Nebulize 3 ml INHALATION RT-QID 09/28/20 12/08/20 History [Duoneb 0.5 mg-3 mg/3 ml Soln] amLODIPine [Norvasc] 10 mg PO DAILY 09/28/20 12/08/20 History Cholecalciferol [Vitamin D3 (25 25 mcg PO DAILY 11/19/20 12/08/20 History Mcg = 1000 Iu)] Pantoprazole Sodium [Protonix] 40 mg PO DAILY 11/19/20 12/08/20 History predniSONE 10 mg PO DAILY 11/19/20 12/08/20 History ALPRAZolam [Xanax] 0.25 mg PO DAILY PRN 12/08/20 12/08/20 History Mupirocin 2% Oint [Bactroban 2% 1 applic EA NOSTRIL TID 12/08/20 12/08/20 History Oint] Allergies Allergy/AdvReac Type Severity Reaction Status Date / Time amoxicillin [From Augmentin] Allergy Unknown Verified 12/08/20 18:28 clavulanic acid Allergy Unknown Verified 12/08/20 18:28 [From Augmentin] levofloxacin [From Levaquin] Allergy Unknown Verified 12/08/20 18:28 moxifloxacin HCl Allergy Rash/Hives, Verified 12/08/20 18:28 [From Avelox] SWELLING nitrofurantoin Allergy Rash/Hives Verified 12/08/20 18:28 hydrocodone bitartrate AdvReac Nausea & Verified 12/08/20 18:28 [From Lortab] Vomiting losartan AdvReac Cough Verified 12/08/20 18:28 simvastatin AdvReac muscle pain Verified 12/08/20 18:28 [id number] Reductase AdvReac MUSCLE PAIN Verified 12/08/20 18:28 Inhibitor Physical Exam Vitals: Vital Signs Temp Pulse Pulse Resp BP BP Pulse Ox 12/09/20 07:00 97.7 F 78 18 147/72 95 12/09/20 02:00 98 F 81 18 137/67 98 12/08/20 21:24 98 F 81 20 131/59 94 L 12/08/20 19:32 84 20 124/71 98 12/08/20 19:06 89 18 12/08/20 19:02 78 18 12/08/20 18:43 18 12/08/20 17:38 97.9 F 90 26 H 142/62 92 L Intake and Output 12/08/20 12/09/20 12/09/20 22:59 06:59 14:59 Other: Voiding Method Toilet Toilet # Voids 1 2 Weight 63.957 kg GENERAL EXAM: Alert, active, comfortable in no apparent distress. On 2 L nasal cannula Head exam was generally normal. There was no scleral icterus or corneal arcus. Mucous membranes were moist. EYES: Normal reaction of pupils, equal size. NOSE: Clear with pink turbinates. THROAT: No erythema or exudates. Neck was supple and without jugular venous distension, thyromegaly, or carotid bruits. Carotids were easily palpable bilaterally. There was no adenopathy. CHEST: No chest wall deformity. LUNGS: Equal air entry with faint expiratory wheeze, diminished. CVS: S1 and S2 normal with no audible murmur, regular rhythm. ABDOMEN: No hepatosplenomegaly, normal bowel sounds, no guarding or rigidity. SPINE: No scoliosis or deformity SKIN: No rashes CENTRAL NERVOUS SYSTEM: No focal deficits, tone is normal in all 4 extremities. EXTREMITIES: Cast to the left wrist. There is no peripheral edema. No clubbing, no cyanosis. Peripheral pulses are intact. Results - Laboratory Findings CBC and BMP: 12/08/20 18:05 12/08/20 18:05 PT/INR, D-dimer PT 9.9 sec (9.0-12.0) 12/08/20 18:05 INR 0.9 (<1.2) 12/08/20 18:05 D-Dimer 0.64 mg/L FEU (<0.60) H 12/08/20 18:05 Abnormal lab findings: Abnormal Labs 12/08/20 12/08/20 12/08/20 18:05 18:05 18:05 RDW 16.6 H APTT 19.7 L D-Dimer 0.64 H BUN 22 H Glucose 149 H Total Protein 6.1 L Assessment and Plan Plan: 1 acute on chronic dyspnea possibly secondary to COPD exacerbation-readmission. The patient is also having skeletal-type of chest wall pain involving the lateral and posterior aspect of the left chest. The pain is reproducible upon palpating the area. No evidence of any trauma. No evidence of any chest wall deformity. Previous CT angios the chest that was done on September 2010 showed extensive emphysema without any acute abnormalities involving the skeletal structures. There was a concern of a pulmonary nodule in the right upper lobe for which the patient underwent a further PET scan that showed no metabolic activity. Noted the patient was recently hospitalized for an acute COPD exacerbation as the patient was taken off her long-term steroid medication and the patient was taking Combivent a prednisone for many years. 2 advanced COPD with upper lobe changes/bullous changes and the patient has been treated for extensive pneumonias in the past, none for now 3 chronic hypoxic respiratory failure secondary to COPD 4 vague right upper lobe opacity being followed up in our office and the patient a CAT scan of the chest that was done on 09/28/2020 followed by a PET scan that was done on 10/18/2020 showing no evidence of any significant metabolic activity in the right upper lobe. As such, no clear indication of an underlying malignancy. 5 history of smoking 6 hypertension 7 hyperlipidemia 8 H. pylori being treated on outpatient basis with a combination of doxycycline and Flagyl. Plan DuoNeb nebulized treatments around the clock Solu Medrol 40 mg every 8 hours chest x-ray was reviewed no acute abnormalities apply lidocaine patch for the chest wall pain obtain a CT of the chest we'll continue to follow.
[2020-12-09] MEDS: methylPREDNISolone SOD SUCCI 40 MG/ML 1 ML VIAL IV SCH ×3 (09:41→23:29)
[2020-12-09] MEDS: PANTOPRAZOLE 40 MG TABLET PO SCH (09:42)
[2020-12-09] MEDS: LIDOCAINE 5% PATCH TOPICAL SCH (09:42)
--- NOTE | 2020-12-09 10:01 | P.CRDCN ---
History of Present Illness Consult date: 12/09/20 History of present illness: CHIEF COMPLAINT: Shortness of breath HISTORY OF PRESENT ILLNESS: This is a 80-year-old female with a past medical history significant for COPD with home oxygen use, hypertension, hyperlipidemia, and recent H. pylori diagnosis. Patient follows in the office with Dr. Neff. We have been asked to see the patient in consultation for shortness of breath. Patient examined this morning at the bedside. Patient states she has been feeling short of breath for the last week. She denies shortness of breath at rest but states with minimal exertion such as walking to the bathroom she becomes very dyspneic. She states she is unable to lay flat in bed due to feeling short of breath. She reports home oxygen use. She denies chest pain or pressure. Denies dizziness or lightheadedness. Patient states she was scheduled to see her pharmacy operations coordinator on an outpatient basis but she came to the emergency room when her shortness of breath worsened. DIAGNOSTICS: EKG reveals sinus mechanism with no signs of acute ischemia Chest xray mild pulmonary interstitial infiltrates consistent with fibrosis similar to old exam. No heart failure seen. Laboratory data: WBC 7.4. Hemoglobin 10.1. Platelet count 311. D-dimer 0.64. Sodium 139. Potassium 3.9. BUN 22. Creatinine 0.91. BNP 236. Troponin negative 3. Current home cardiac medications include metoprolol succinate 12.5 mg daily, hydrochlorothiazide 25 mg daily, amlodipine 10 mg daily Echocardiogram completed in 2019 revealed ejection fraction greater than 55% Patient underwent cardiac catheterization in 2018 revealing mild disease of the RCA and LAD. REVIEW OF SYSTEMS: At the time of my exam: CONSTITUTIONAL: Denies fever or chills. HEENT: Denies blurred vision, vision changes, or eye pain. Denies hemoptysis CARDIOVASCULAR: Denies chest pain, orthopnea, PND or palpitations RESPIRATORY: Reports shortness of breath. GASTROINTESTINAL: Denies abdominal pain. Denies nausea or vomiting. HEMATOLOGIC: Denies bleeding disorders. GENITOURINARY: Denies any blood in urine. SKIN: Denies pruitis. Denies rash. PHYSICAL EXAM: VITAL SIGNS: Reviewed. GENERAL: Well-developed in no acute distress. HEENT: Head is normocephalic. Pupils are equal, round. Sclerae anicteric. Mucous membranes of the mouth are moist. Neck supple. No JVD or thyromegaly LUNGS: Respirations even and unlabored. Lungs diminished bilaterally with no rales auscultated. HEART: Regular rate and rhythm. S1 and S2 heard. ABDOMEN: Soft. Nondistended. Nontender. EXTREMITIES: Normal range of motion. No clubbing or cyanosis. Peripheral pulses intact. No lower extremity edema NEUROLOGIC: Awake and alert. Oriented x 3. ASSESSMENT: Shortness of breath; possibly secondary to COPD exacerbation Chronic hypoxic respiratory failure on home O2 Recent diagnosis of H. pylori Hypertension Hyperlipidemia Mild nonobstructive coronary artery disease involving RCA and LAD, per cardiac catheterization in 2018 Former nicotine dependence PLAN: Obtain 2-D echo to assess cardiac structure and function Resume home cardiac medications Pulmonary consulted. Await evaluation Further recommendations pending patient course Nurse practitioner note has been reviewed by physician. Signing provider agrees with the documented findings, assessment, and plan of care. Past Medical History Past Medical History: Asthma, COPD, GERD/Reflux, GI Bleed, Hyperlipidemia, Hypertension, Osteoarthritis (OA), Respiratory Disorder Additional Past Medical History / Comment(s): Pt currently being treated for H Pylori, COPD with bullous changes in the upper lobes bilaterally, chronic hypoxic respiratory failure, home oxygen at 2L/min, lower GI bleeding past, chronic low back pain-much improved since hip replaced, herniated lumbar discs, arthritis in multiple joints, diverticulosis/ diverticulitis, urinary leakage, UTI History of Any Multi-Drug Resistant Organisms: ESBL Date of last positivie culture/infection: 10/06/20 ESBL E.coli MDRO Source:: Urine Past Surgical History: Appendectomy, Bowel Resection, Cholecystectomy, Heart Catheterization, Joint Replacement, Orthopedic Surgery, Tubal Ligation Additional Past Surgical History / Comment(s): Bronchoscopies/lavages, bowel resection due to diverticulitis 2012, bilat knee arthroscopy, sinus surgery twice, carpal tunnel left wrist, EGD, colonoscopies/polypectomies, back injections, left wrist fracture with pins placed 12-07-2018 and since removed, left hip replaced 2018 Past Anesthesia/Blood Transfusion Reactions: No Reported Reaction Additional Past Anesthesia/Blood Transfusion Reaction / Comment(s): has never received blood Past Psychological History: Anxiety Additional Psychological History / Comment(s): Pt lives alone. She is independent. She owns a walker and cane but does not need to use them. She drives. She has home 02 2 liters n/c mostly ATC and a concentrator. She has a nebulizer. Smoking Status: Former smoker Past Alcohol Use History: None Reported Additional Past Alcohol Use History / Comment(s): QUIT SMOKING 1997, STARTED AGE 18(1957) smoked <1ppd when she smoked Past Drug Use History: None Reported - Past Family History Mother Family Medical History: Myocardial Infarction (SD) Additional Family Medical History / Comment(s): Mother of SD at age 65 yrs. Sister(s) Family Medical History: Cancer Additional Family Medical History / Comment(s): Twin sister had LUNG cancer. Father Family Medical History: Cancer Additional Family Medical History / Comment(s): Father had cancer in his neck. Medications and Allergies Home Medications Medication Instructions Recorded Confirmed Type Metoprolol Succinate [Toprol XL] 12.5 mg PO DAILY 09/25/17 12/08/20 History Budesonide-Formot 160-4.5 Mcg 2 puff INHALATION RT-BID 02/09/18 12/08/20 History [Symbicort 160-4.5 Mcg Inhaler] hydroCHLOROthiazide [Hydrodiuril] 25 mg PO DIRECTED 06/04/19 12/08/20 History Albuterol Sulfate [Proair Hfa] 1 - 2 puff INHALATION RT-Q6H PRN 09/28/20 12/08/20 History Ipratropium-Albuterol Nebulize 3 ml INHALATION RT-QID 09/28/20 12/08/20 History [Duoneb 0.5 mg-3 mg/3 ml Soln] amLODIPine [Norvasc] 10 mg PO DAILY 09/28/20 12/08/20 History Cholecalciferol [Vitamin D3 (25 25 mcg PO DAILY 11/19/20 12/08/20 History Mcg = 1000 Iu)] Pantoprazole Sodium [Protonix] 40 mg PO DAILY 11/19/20 12/08/20 History predniSONE 10 mg PO DAILY 11/19/20 12/08/20 History ALPRAZolam [Xanax] 0.25 mg PO DAILY PRN 12/08/20 12/08/20 History Mupirocin 2% Oint [Bactroban 2% 1 applic EA NOSTRIL TID 12/08/20 12/08/20 History Oint] Allergies Allergy/AdvReac Type Severity Reaction Status Date / Time amoxicillin [From Augmentin] Allergy Unknown Verified 12/08/20 18:28 clavulanic acid Allergy Unknown Verified 12/08/20 18:28 [From Augmentin] levofloxacin [From Levaquin] Allergy Unknown Verified 12/08/20 18:28 moxifloxacin HCl Allergy Rash/Hives, Verified 12/08/20 18:28 [From Avelox] SWELLING nitrofurantoin Allergy Rash/Hives Verified 12/08/20 18:28 hydrocodone bitartrate AdvReac Nausea & Verified 12/08/20 18:28 [From Lortab] Vomiting losartan AdvReac Cough Verified 12/08/20 18:28 simvastatin AdvReac muscle pain Verified 12/08/20 18:28 [id number] Reductase AdvReac MUSCLE PAIN Verified 12/08/20 18:28 Inhibitor Physical Exam Vitals: Vital Signs Temp Pulse Pulse Resp BP BP Pulse Ox 12/09/20 07:00 97.7 F 78 18 147/72 95 12/09/20 02:00 98 F 81 18 137/67 98 12/08/20 21:24 98 F 81 20 131/59 94 L 12/08/20 19:32 84 20 124/71 98 12/08/20 19:06 89 18 12/08/20 19:02 78 18 12/08/20 18:43 18 12/08/20 17:38 97.9 F 90 26 H 142/62 92 L Intake and Output 12/08/20 12/09/20 12/09/20 22:59 06:59 14:59 Other: Voiding Method Toilet Toilet # Voids 1 2 Weight 63.957 kg Results 12/08/20 18:05 12/08/20 18:05 Cardiac Enzymes 12/08/20 12/08/20 12/08/20 Range/Units 18:05 18:20 21:35 AST 30 (14-36) U/L Troponin I <0.012 <0.012 (0.000-0.034) ng/mL 12/09/20 Range/Units 00:15 AST (14-36) U/L Troponin I <0.012 (0.000-0.034) ng/mL Coagulation 12/08/20 Range/Units 18:05 PT 9.9 (9.0-12.0) sec APTT 19.7 L (22.0-30.0) sec CBC 12/08/20 Range/Units 18:05 WBC 7.4 (3.8-10.6) k/uL RBC 4.75 (3.80-5.40) m/uL Hgb 13.1 (11.4-16.0) gm/dL Hct 39.8 (34.0-46.0) % Plt Count 311 (150-450) k/uL Comprehensive Metabolic Panel 12/08/20 Range/Units 18:05 Sodium 139 (137-145) mmol/L Potassium 3.9 (3.5-5.1) mmol/L Chloride 105 (98-107) mmol/L Carbon Dioxide 26 (22-30) mmol/L BUN 22 H (7-17) mg/dL Creatinine 0.91 (0.52-1.04) mg/dL Glucose 149 H (74-99) mg/dL Calcium 9.4 (8.4-10.2) mg/dL AST 30 (14-36) U/L ALT 30 (4-34) U/L Alkaline Phosphatase 62 (38-126) U/L Total Protein 6.1 L (6.3-8.2) g/dL Albumin 3.6 (3.5-5.0) g/dL Current Medications Generic Name Dose Route Start Last Admin Trade Name Freq PRN Reason Stop Dose Admin Albuterol/Ipratropium 3 ml 12/09/20 12:00 Ipratropium-Albuterol 3 Ml Neb INHALATION RT-QID JAI Amlodipine Besylate 10 mg 12/09/20 09:00 12/09/20 08:09 Amlodipine 10 Mg Tab PO 10 mg DAILY JAI Administration Budesonide/Formoterol Fumarate 2 puff 12/09/20 20:00 Symbicort 160-4.5 Mcg Inhaler INHALATION RT-BID JAI Hydrochlorothiazide 25 mg 12/09/20 09:00 12/09/20 08:09 Hydrochlorothiazide 25 Mg Tab PO 25 mg DAILY JAI Administration Lidocaine 1 patch 12/09/20 09:30 12/09/20 09:42 Lidocaine 5% Patch TOPICAL 1 patch DAILY JAI Administration Methylprednisolone Sodium Succinate 40 mg 12/09/20 09:30 12/09/20 09:41 Methylprednisolone Sod Succi 40 Mg/Ml 1 Ml Vial IV 40 mg Q8HR JAI Administration Metoprolol Succinate 12.5 mg 12/09/20 09:00 12/09/20 08:09 Metoprolol Succinate (Er) 25 Mg Tab.Er.24h PO 12.5 mg DAILY JAI Administration Nitroglycerin 0.4 mg 12/08/20 19:16 Nitroglycerin Sl Tabs 0.4 Mg Tab SUBLINGUAL Q5M PRN Chest Pain Pantoprazole Sodium 40 mg 12/09/20 09:30 12/09/20 09:42 Pantoprazole 40 Mg Tablet PO 40 mg DAILY JAI Administration Intake and Output 12/08/20 12/09/20 12/09/20 22:59 06:59 14:59 Other: Voiding Method Toilet Toilet # Voids 1 2 Weight 63.957 kg 12/08/20 18:05 12/08/20 18:05
--- NOTE | 2020-12-09 10:29 | CT ---
CT CHEST FOR PULMONARY EMBOLISM. EXAMINATION TYPE: CT angio chest DATE OF EXAM: 12/09/2020 INDICATION: Chest pain eith shortness of breath CT DLP: 266.7 mGycm, Automated exposure control for dose reduction was used. CONTRAST: Patient injected with 100 mL of Isovue 370. COMPARISON: 12/03/2019 TECHNIQUE: CT of the chest is performed on a spiral scan at 2 mm thick sections. Study is performed with intravenous contrast timed for evaluation for pulmonary embolism. This will limit additional po rtions of the evaluation. 3-D MIP images reconstructed by the technologist are reviewed on the compu ter in the coronal and sagittal planes. FINDINGS: No persistent filling defects are evident to suggest an acute pulmonary embolism. No mediastinal or hilar adenopathy enlarged by CT criteria is evident. There is a 0.8 cm superior me diastinal lymph node. There is a 0.9 cm pretracheal lymph node. Ascending aorta diameter at the level of the main pulmonary artery is 2.9 cm. The main pulmonary artery diameter at the bifurcation is 3. 0 cm. There is some chronic scarring at the right apex. Emphysematous changes are present. There may be piedad e increasing thickening along the lateral right upper lobe currently measuring 1.1 cm in thickness. P revious measurement 0.7 cm there is an irregular density in the anterior lateral right lung measuring 0.5 cm. Series [address] section through the upper abdomen. There is a superior right renal cyst measuring 7 Hounsf ield units and 5 cm AP dimension. Multiple splenic calcified granulomata are present. IMPRESSIONS: 1. Acute pulmonary embolism. 2. Some mild progressive thickening of the pleural margin right apex. 3 extensive emphysematous hollins es
--- NOTE | 2020-12-09 11:03 | ECHOF ---
Referral Reason:LV function MEASUREMENTS -------- HEIGHT: 160.0 cm WEIGHT: 64.0 kg BP: 137/67 RVIDd: 3.0 cm (< 3.3) IVSd: 1.0 cm (0.6 - 1.1) LVIDd: 4.7 cm (3.9 - 5.3) LVPWd: 1.2 cm (0.6 - 1.1) IVSs: 1.8 cm LVIDs: 2.9 cm LVPWs: 1.6 cm LAESV Index (A-L): 35.13 ml/m Ao Diam: 3.0 cm (2.0 - 3.7) AV Cusp: 1.9 cm (1.5 - 2.6) MV EXCURSION: 21.996 mm (> 18.000) MV EF SLOPE: 157 mm/s (70 - 150) EPSS: 1.0 cm MV E Kevin: 0.83 m/s MV DecT: 179 ms MV A Kevin: 1.22 m/s MV E/A Ratio: 0.68 RAP: 5.00 mmHg RVSP: 33.58 mmHg FINDINGS -------- Sinus rhythm. This was a technically adequate study. The left ventricular size is normal. There is mild concentric left ventricular hypertrophy. Overa ll left ventricular systolic function is normal with, an EF between 55 - 60 %. The diastolic fillin g pattern is normal for the age of the patient 14.09. The right ventricle is normal in size. LA is moderately dilated 34-39 ml/m2 The right atrial size is normal. Interatrial and interventricular septum intact. There is no evidence of aortic regurgitation. There is no evidence of aortic stenosis. Umff-ub-[id number] mitral regurgitation is present. Mild tricuspid regurgitation present. There is mild pulmonary hypertension. The right ventricular systolic pressure, as measured by Doppler, is 33.58mmHg. There is no pulmonic regurgitation present. The aortic root size is normal. The inferior vena cava is mildly dilated. There is no pericardial effusion. CONCLUSIONS -------- 1. The left ventricular size is normal. 2. There is mild concentric left ventricular hypertrophy. 3. Overall left ventricular systolic function is normal with, an EF between 55 - 60 %. 4. LA is moderately dilated 34-39 ml/m2 5. Gzip-qu-dhqhyxhw mitral regurgitation is present. 6. Mild tricuspid regurgitation present. 7. There is mild pulmonary hypertension. 8. The right ventricular systolic pressure, as measured by Doppler, is 33.58mmHg. MULE PACKER: Sofia Muñoz RDCS
[2020-12-09] MEDS: IPRATROPIUM-ALBUTEROL 3 ML NEB INHALATION SCH ×3 (11:16→20:15)
[2020-12-09] MEDS: SYMBICORT 160-4.5 MCG INHALER INHALATION SCH (20:15)
[2020-12-10] MEDS ORDERED: ACETAMINOPHEN TAB 325 MG TAB PO PRN (06:10)
[2020-12-10] MEDS: IPRATROPIUM-ALBUTEROL 3 ML NEB INHALATION SCH ×4 (07:10→19:12)
[2020-12-10] MEDS: SYMBICORT 160-4.5 MCG INHALER INHALATION SCH ×2 (07:31→19:12)
[2020-12-10] MEDS: hydroCHLOROthiazide 25 MG TAB PO SCH (08:46)
[2020-12-10] MEDS: PANTOPRAZOLE 40 MG TABLET PO SCH (08:46)
[2020-12-10] MEDS: methylPREDNISolone SOD SUCCI 40 MG/ML 1 ML VIAL IV SCH ×3 (08:46→23:57)
[2020-12-10] MEDS: METOPROLOL SUCCINATE (ER) 25 MG TAB.ER.24H PO SCH (08:46)
[2020-12-10] MEDS: LIDOCAINE 5% PATCH TOPICAL SCH (08:47)
[2020-12-10] MEDS: amLODIPine 10 MG TAB PO SCH (08:47)
--- NOTE | 2020-12-10 10:10 | P.PN ---
Subjective Progress Note Date: 12/10/20 CHIEF COMPLAINT: Shortness of breath HISTORY OF PRESENT ILLNESS: 12/09/2020 This is a 80-year-old female with a past medical history significant for COPD with home oxygen use, hypertension, hyperlipidemia, and recent H. pylori diagnosis. Patient follows in the office with Dr. Neff. We have been asked to see the patient in consultation for shortness of breath. Patient examined this morning at the bedside. Patient states she has been feeling short of breath for the last week. She denies shortness of breath at rest but states with minimal exertion such as walking to the bathroom she becomes very dyspneic. She states she is unable to lay flat in bed due to feeling short of breath. She reports home oxygen use. She denies chest pain or pressure. Denies dizziness or lightheadedness. Patient states she was scheduled to see her mechanic chief on an outpatient basis but she came to the emergency room when her shortness of breath worsened. EKG reveals sinus mechanism with no signs of acute ischemia Chest xray mild pulmonary interstitial infiltrates consistent with fibrosis similar to old exam. No heart failure seen. Laboratory data: WBC 7.4. Hemoglobin 10.1. Platelet count 311. D-dimer 0.64. Sodium 139. Potassium 3.9. BUN 22. Creatinine 0.91. BNP 236. Troponin negative 3. Current home cardiac medications include metoprolol succinate 12.5 mg daily, hydrochlorothiazide 25 mg daily, amlodipine 10 mg daily Echocardiogram completed in 2019 revealed ejection fraction greater than 55% Patient underwent cardiac catheterization in 2018 revealing mild disease of the RCA and LAD. 12/10/2020 Patient examined this morning at the bedside. Patient complains of mild shortness of breath. She does appear mildly dyspneic. However she has just walked back to her bed after using the restroom. Patient is complaining of significant left flank pain and left sided abdominal pain this morning. Echocardiogram completed revealed ejection fraction 55-60%, [id number] mitral regurgitation, mild tricuspid regurgitation, and mild pulmonary h ypertension. PHYSICAL EXAM: VITAL SIGNS: Reviewed. GENERAL: Well-developed in no acute distress. HEENT: Head is normocephalic. Pupils are equal, round. Sclerae anicteric. Mucous membranes of the mouth are moist. Neck supple. No JVD or thyromegaly LUNGS: Respirations even and unlabored. Lungs diminished bilaterally with no rales auscultated. HEART: Regular rate and rhythm. S1 and S2 heard. EXTREMITIES: Normal range of motion. No clubbing or cyanosis. Peripheral pulses intact. No lower extremity edema NEUROLOGIC: Awake and alert. Oriented x 3. ASSESSMENT: Shortness of breath; possibly secondary to COPD exacerbation Left flank pain Chronic hypoxic respiratory failure on home O2 Recent diagnosis of H. pylori Hypertension Hyperlipidemia Mild nonobstructive coronary artery disease involving RCA and LAD, per cardiac catheterization in 2018 Former nicotine dependence PLAN: CTA chest with conflicting radiologist dictation regarding PE. Spoke with Dr. Denson who verified patient does not appear to have a PE on chest CTA. Spoke with ROB Ferreira with internal medicine, regarding patients flank pain. Will defer workup to their service Continue current cardiac medications Pulmonary following for COPD exacerbation. Continue IV steroids per their service Further recommendations pending patient course Nurse practitioner note has been reviewed by physician. Signing provider agrees with the documented findings, assessment, and plan of care. Objective - Vital Signs Vital signs: Vital Signs Temp 97.8 F 12/10/20 07:00 Pulse 88 12/10/20 07:20 Resp 14 12/10/20 09:00 BP 143/66 12/10/20 07:00 Pulse Ox 97 12/10/20 07:00 Intake & Output 12/09/20 12/10/20 12/10/20 18:59 06:59 18:59 Intake Total 200 Balance 200 Intake: Oral 200 Other: Voiding Method Toilet Toilet Toilet # Voids 3 1 - Labs CBC & Chem 7: 12/08/20 18:05 12/08/20 18:05
--- NOTE | 2020-12-10 10:32 | P.PN ---
Subjective Progress Note Date: 12/10/20 Principal diagnosis: Acute exacerbation chronic obstructive pulmonary disease 80-year-old female patient known history of COPD was been steroid dependent for many years follow-up through our office on the the care of Dr. Sarabia. The patient also utilizes Symbicort as maintenance in addition to DuoNeb nebulized treatments [id number]. The hospital approximately 3 weeks ago where she can for shortness of breath after quitting her steroids. Note that the patient remains on prednisone for years she was investigated with the medication as well as being treated for a H. pylori the stomach infection. According that she became more short of breath. She had a brief hospitalization which was given systemic steroids and she was optimized and she was discharged home. She came in for a similar problem worsening shortness of breath and pain across the lateral part of the chest posteriorly and laterally above the flank. The pain is around 8 out of 10 in severity, very much reproducible upon palpating the involved area. She states that she was coughing for the past 3-4 days. No hemoptysis. No pleurisy.. Unable to see her fur buyer and based on that she end up coming to the emergency. Chest x-ray was consistent with COPD. Cardiac enzymes were negative. BNP level was nonelevated. COVID 19 testing was negative. Note the time of her discharge from the hospital 3 weeks ago, the patient was given prednisone burst taper, she was asked to complete a course of tetracycline and metronidazole for H. pylori. She was admitted on Symbicort and albuterol nebulized treatments on a daily basis regarding her COPD. Currently she has no fever. No chills. Cardiac enzymes are negative. Electrodes are all within normal limits. D-dimer level is low. The patient is seen today 12/10/2020 and follow-up on the regular medical floor. She is currently sitting up at the bedside. Awake and alert in no acute distress. Breathing a bit easier today compared to yesterday. Still dyspneic with minimal exertion. She is maintaining O2 saturations in the mid 90s on 3 L/m per nasal cannula. Afebrile. Hemodynamically stable. Remains on Symbicort, DuoNeb inhalations, IV Solu-Medrol. Her main complaint today as left lower back pain. Lidoderm patch in place. CT angiogram revealed no evidence of acute pulmonary embolism. There is some mild progressive thickening of the pleural margin the right apex. Extensive emphysematous changes. EKG reveals normal sinus rhythm without any acute ST or T wave abnormalities. Objective - Vital Signs Vital signs: Vital Signs Temp 97.8 F 12/10/20 07:00 Pulse 88 12/10/20 07:20 Resp 14 12/10/20 09:00 BP 143/66 12/10/20 07:00 Pulse Ox 97 12/10/20 07:00 Intake & Output 12/09/20 12/10/20 12/10/20 18:59 06:59 18:59 Intake Total 200 Balance 200 Intake: Oral 200 Other: Voiding Method Toilet Toilet Toilet # Voids 3 1 - Exam GENERAL EXAM: Alert, active, pleasant 80-year-old female patient, comfortable in no apparent distress. On 3 L nasal cannula Head exam was generally normal. There was no scleral icterus or corneal arcus. Mucous membranes were moist. EYES: Normal reaction of pupils, equal size. NOSE: Clear with pink turbinates. THROAT: No erythema or exudates. Neck was supple and without jugular venous distension, thyromegaly, or carotid bruits. Carotids were easily palpable bilaterally. There was no adenopathy. CHEST: No chest wall deformity. LUNGS: Equal air entry with faint expiratory wheeze, diminished. CVS: S1 and S2 normal with no audible murmur, regular rhythm. ABDOMEN: No hepatosplenomegaly, normal bowel sounds, no guarding or rigidity. SPINE: No scoliosis or deformity SKIN: No rashes CENTRAL NERVOUS SYSTEM: No focal deficits, tone is normal in all 4 extremities. EXTREMITIES: Cast to the left wrist. There is no peripheral edema. No clubbing, no cyanosis. Peripheral pulses are intact. - Labs CBC & Chem 7: 12/08/20 18:05 12/08/20 18:05 Assessment and Plan Assessment: 1 acute on chronic dyspnea possibly secondary to COPD exacerbation-readmission. The patient is also having skeletal-type of chest wall pain involving the lateral and posterior aspect of the left chest. The pain is reproducible upon palpating the area. No evidence of any trauma. No evidence of any chest wall deformity. Previous CT angios the chest that was done on September 2010 showed extensive emphysema without any acute abnormalities involving the skeletal stru ctures. There was a concern of a pulmonary nodule in the right upper lobe for which the patient underwent a further PET scan that showed no metabolic activity. Noted the patient was recently hospitalized for an acute COPD exacerbation as the patient was taken off her long-term steroid medication and the patient was taking Combivent a prednisone for many years. CT angiogram this admission ruled out pulmonary embolism. There was extensive emphysematous changes noted. Scarring in the right apex. 2 advanced COPD with upper lobe changes/bullous changes and the patient has been treated for extensive pneumonias in the past, none for now 3 chronic hypoxic respiratory failure secondary to COPD 4 vague right upper lobe opacity being followed up in our office and the patient a CAT scan of the chest that was done on 09/28/2020 followed by a PET scan that was done on 10/18/2020 showing no evidence of any significant metabolic activity in the right upper lobe. As such, no clear indication of an underlying malignancy. 5 history of smoking 6 hypertension 7 hyperlipidemia 8 H. pylori being treated on outpatient basis with a combination of doxycycline and Flagyl. Plan The patient was seen and evaluated by Dr. Barragan CT angiogram reviewed, no PE Continue current medications for COPD exacerbation Lidoderm to the lower back pain Increase her activity as tolerated We will continue to follow I, the cosigning physician, performed a history & physical examination of the patient. Lungs sounds with mild end-expiratory wheeze, diminished. Maintaining good O2 saturations in the 90s on 3 L/m per nasal cannula. I discussed the assessment and plan of care with my nurse practitioner, Malgorzata Dowell. I attest to the above note as dictated by her.
[2020-12-10 10:46] LABS: African American GFR (CKD) >90 (>60 ml/min/1.73 sqM); Anion Gap 7 mmol/L; Blood Urea Nitrogen 24 mg/dL (7-17); Calcium 9.7 mg/dL (8.4-10.2); Carbon Dioxide 25 mmol/L (22-30); Chloride 104 mmol/L (98-107); Glucose 165 mg/dL (74-99); Non-African American GFR(CKD) 87 (>60 ml/min/1.73 sqM); Potassium 4.1 mmol/L (3.5-5.1); Sodium 136 mmol/L (137-145)
[2020-12-10 10:54] LABS: Anisocytosis Slight; Basophils % (A) 0 %; Eosinophils % (A) 0 %; HCT 41.2 % (34.0-46.0); Lymphocytes # (A) 0.5 k/uL (1.0-4.8); Lymphocytes % (A) 4 %; MCH 26.9 pg (25.0-35.0); MCHC 31.7 g/dL (31.0-37.0); MCV 84.8 fL (80.0-100.0); Mean Platelet Volume 7.8; Monocytes # (A) 0.6 k/uL (0-1.0); Monocytes % (A) 5 %; Neutrophils # (A) 9.7 k/uL (1.3-7.7); Neutrophils % (A) 89 %; Platelet Count 391 k/uL (150-450); RBC 4.86 m/uL (3.80-5.40); RDW 16.7 % (11.5-15.5); WBC 10.8 k/uL (3.8-10.6)
[2020-12-10] MEDS ORDERED: CYCLOBENZAPRINE 5 MG TAB PO PRN (12:21)
[2020-12-10 14:00] LABS: Appearance,Urine Clear (Clear); Bilirubin,Urine Negative (Negative); Blood,Urine Negative (Negative); Color,Urine Yellow; Glucose,Urine (UA) Negative (Negative); Ketones,Urine Negative (Negative); Leukocyte Esterase,Urine Negative (Negative); Nitrite,Urine Negative (Negative); Protein,Urine Trace (Negative); Specific Gravity,Urine 1.022 (1.001-1.035); Urobilinogen,Urine <2.0 mg/dL (<2.0)
[2020-12-10] MEDS: ALPRAZolam 0.25 MG TAB PO PRN (21:30)
[2020-12-11] MEDS: IPRATROPIUM-ALBUTEROL 3 ML NEB INHALATION SCH ×4 (07:30→20:02)
[2020-12-11] MEDS: SYMBICORT 160-4.5 MCG INHALER INHALATION SCH ×2 (07:31→20:02)
[2020-12-11] MEDS ORDERED: DILTIAZEM DRIP BOLUS FROM BAG 1 MG SOLN IV ONE (07:36)
[2020-12-11] MEDS ORDERED: HEPARIN SODIUM,PORCINE 5,000 UNIT/ML 1 ML VIAL IV PRN (07:42)
[2020-12-11] MEDS ORDERED: HEPARIN SODIUM,PORCINE 5,000 UNIT/ML 1 ML VIAL IV ONE (07:42)
[2020-12-11] MEDS ORDERED: DILTIAZEM 125 MG in SODIUM CHLORIDE 0.9% 100 ML IV SCH (07:45)
[2020-12-11] MEDS ORDERED: HEPARIN SOD,PORK IN 0.45% NACL 25,000 UNIT in 0.45% NACL 1 250ML.BAG IV SCH (07:45)
[2020-12-11] MEDS: methylPREDNISolone SOD SUCCI 40 MG/ML 1 ML VIAL IV SCH (08:25)
[2020-12-11] MEDS: PANTOPRAZOLE 40 MG TABLET PO SCH (08:25)
[2020-12-11] MEDS: METOPROLOL SUCCINATE (ER) 25 MG TAB.ER.24H PO SCH (08:25)
[2020-12-11] MEDS: LIDOCAINE 5% PATCH TOPICAL SCH (08:25)
[2020-12-11] MEDS: hydroCHLOROthiazide 25 MG TAB PO SCH (08:26)
[2020-12-11 09:04] LABS: Anisocytosis Slight; Basophils % (A) 0 %; Eosinophils % (A) 0 %; HCT 38.6 % (34.0-46.0); HGB 13.1 gm/dL (11.4-16.0); Lymphocytes # (A) 0.5 k/uL (1.0-4.8); Lymphocytes % (A) 6 %; MCV 85.2 fL (80.0-100.0); Mean Platelet Volume 7.7; Monocytes # (A) 0.4 k/uL (0-1.0); Monocytes % (A) 5 %; Neutrophils # (A) 7.7 k/uL (1.3-7.7); Neutrophils % (A) 89 %; Platelet Count 345 k/uL (150-450); RBC 4.54 m/uL (3.80-5.40); RDW 16.8 % (11.5-15.5); WBC 8.7 k/uL (3.8-10.6)
[2020-12-11 09:19] LABS: INR 0.9 (<1.2)
[2020-12-11 09:30] LABS: Partial Thromboplastin Time 19.5 sec (22.0-30.0)
--- NOTE | 2020-12-11 10:30 | P.HPIM ---
History of Present Illness H&P Date: 12/09/20 Chief Complaint: Difficulty breathing 80-year-old female patient known history of COPD, steroid dependent, Symbicort as maintenance in addition to DuoNeb nebulized treatments [id number]. The hospital approximately 3 weeks ago where she can for shortness of breath after quitting her steroids. She had a brief hospitalization which was given systemic steroids and she was optimized and she was discharged home. She came in for a similar problem worsening shortness of breath and pain across the lateral part of the chest posteriorly and laterally above the flank. The pain is around 8 out of 10 in severity, very much reproducible upon palpating the involved area. She states that she was coughing for the past 3-4 days. No hemoptysis. No pleurisy.. Unable to see her cyber security architect and based on that she end up coming to the emergency. Chest x-ray was consistent with COPD. Cardiac enzymes were negative. BNP level was nonelevated. COVID 19 testing was negative. Note the time of her discharge from the hospital 3 weeks ago, the patient was given prednisone burst taper, she was asked to complete a course of tetracycline and metronidazole for H. pylori. She was admitted on Symbicort and albuterol nebulized treatments on a daily basis regarding her COPD. Currently she has no fever. No chills. Cardiac enzymes are negative. Electrodes are all within normal limits. D-dimer level is low. Review of Systems REVIEW OF SYSTEMS: CONSTITUTIONAL: No fever, no malaise, no fatigue. HEENT: No recent visual problems or hearing problems. Denied any sore throat. CARDIOVASCULAR: No chest pain, orthopnea, PND, no palpitations, no syncope. PULMONARY: No shortness of breath, no cough, no hemoptysis. GASTROINTESTINAL: No diarrhea, no nausea, no vomiting, no abdominal pain. NEUROLOGICAL: No headaches, no weakness, no numbness. HEMATOLOGICAL: Denies any bleeding or petechiae. GENITOURINARY: Denies any burning micturition, frequency, or urgency. MUSCULOSKELETAL/RHEUMATOLOGICAL: Denies any joint pain, swelling, or any muscle pain. ENDOCRINE: Denies any polyuria or polydipsia. The rest of the 14-point review of systems is negative. 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 back pain-much improved since hip replaced, herniated lumbar discs, arthritis in multiple joints, diverticulosis/ diverticulitis, urinary leakage, UTI History of Any Multi-Drug Resistant Organisms: ESBL Date of last positivie culture/infection: 10/06/20 ESBL E.coli MDRO Source:: Urine Past Surgical History: Appendectomy, Bowel Resection, Cholecystectomy, Heart Catheterization, Joint Replacement, Orthopedic Surgery, Tubal Ligation Additional Past Surgical History / Comment(s): Bronchoscopies/lavages, bowel resection due to diverticulitis 2012, bilat knee arthroscopy, sinus surgery twice, carpal tunnel left wrist, EGD, colonoscopies/polypectomies, back injectio ns, left wrist fracture with pins placed 12-07-2018 and since removed, left hip replaced 2018 Past Anesthesia/Blood Transfusion Reactions: No Reported Reaction Additional Past Anesthesia/Blood Transfusion Reaction / Comment(s): has never received blood Past Psychological History: Anxiety Additional Psychological History / Comment(s): Pt lives alone. She is independent. She owns a walker and cane but does not need to use them. She drives. She has home 02 2 liters n/c mostly ATC and a concentrator. She has a nebulizer. Smoking Status: Former smoker Past Alcohol Use History: None Reported Additional Past Alcohol Use History / Comment(s): QUIT SMOKING 1997, STARTED AGE 18(1957) smoked <1ppd when she smoked Past Drug Use History: None Reported - Past Family History Mother Family Medical History: Myocardial Infarction (LA) Additional Family Medical History / Comment(s): Mother of LA at age 65 yrs. Sister(s) Family Medical History: Cancer Additional Family Medical History / Comment(s): Twin sister had LUNG cancer. Father Family Medical History: Cancer Additional Family Medical History / Comment(s): Father had cancer in his neck. Medications and Allergies Home Medications Medication Instructions Recorded Confirmed Type Metoprolol Succinate [Toprol XL] 12.5 mg PO DAILY 09/25/17 12/08/20 History Budesonide-Formot 160-4.5 Mcg 2 puff INHALATION RT-BID 02/09/18 12/08/20 History [Symbicort 160-4.5 Mcg Inhaler] hydroCHLOROthiazide [Hydrodiuril] 25 mg PO DIRECTED 06/04/19 12/08/20 History Albuterol Sulfate [Proair Hfa] 1 - 2 puff INHALATION RT-Q6H PRN 09/28/20 12/08/20 History Ipratropium-Albuterol Nebulize 3 ml INHALATION RT-QID 09/28/20 12/08/20 History [Duoneb 0.5 mg-3 mg/3 ml Soln] amLODIPine [Norvasc] 10 mg PO DAILY 09/28/20 12/08/20 History Cholecalciferol [Vitamin D3 (25 25 mcg PO DAILY 11/19/20 12/08/20 History Mcg = 1000 Iu)] Pantoprazole Sodium [Protonix] 40 mg PO DAILY 11/19/20 12/08/20 History predniSONE 10 mg PO DAILY 11/19/20 12/08/20 History ALPRAZolam [Xanax] 0.25 mg PO DAILY PRN 12/08/20 12/08/20 History Mupirocin 2% Oint [Bactroban 2% 1 applic EA NOSTRIL TID 12/08/20 12/08/20 History Oint] Allergies Allergy/AdvReac Type Severity Reaction Status Date / Time amoxicillin [From Augmentin] Allergy Unknown Verified 12/08/20 18:28 clavulanic acid Allergy Unknown Verified 12/08/20 18:28 [From Augmentin] levofloxacin [From Levaquin] Allergy Unknown Verified 12/08/20 18:28 moxifloxacin HCl Allergy Rash/Hives, Verified 12/08/20 18:28 [From Avelox] SWELLING nitrofurantoin Allergy Rash/Hives Verified 12/08/20 18:28 hydrocodone bitartrate AdvReac Nausea & Verified 12/08/20 18:28 [From Lortab] Vomiting losartan AdvReac Cough Verified 12/08/20 18:28 simvastatin AdvReac muscle pain Verified 12/08/20 18:28 [id number]-[id number] Reductase AdvReac MUSCLE PAIN Verified 12/08/20 18:28 Inhibitor Physical Exam Vitals: Vital Signs Temp Pulse Pulse Resp BP BP Pulse Ox 12/09/20 07:00 97.7 F 78 18 147/72 95 12/09/20 02:00 98 F 81 18 137/67 98 12/08/20 21:24 98 F 81 20 131/59 94 L 12/08/20 19:32 84 20 124/71 98 12/08/20 19:06 89 18 12/08/20 19:02 78 18 12/08/20 18:43 18 12/08/20 17:38 97.9 F 90 26 H 142/62 92 L Intake and Output 12/08/20 12/09/20 12/09/20 22:59 06:59 14:59 Other: Voiding Method Toilet Toilet # Voids 1 2 Weight 63.957 kg - Constitutional General appearance: Present: average body habitus, cooperative, no acute distress - EENT Eyes: Present: anicteric sclerae, EOMI, PERRLA, normal appearance ENT: Present: hearing grossly normal, normal oropharynx Ears: bilateral: normal - Neck Neck: Present: normal ROM. Absent: lymphadenopathy, rigidity, thyromegaly Carotids: negative: bruit present Thyroid: bilateral: normal size, negative: enlarged, nodule - Respiratory Respiratory: bilateral: CTA, negative: rales, rhonchi, wheezing - Cardiovascular Rhythm: regular Heart sounds: normal: S1, S2 Abnormal Heart Sounds: Absent: systolic murmur, diastolic murmur - Gastrointestinal General gastrointestinal: Present: normal bowel sounds, soft. Absent: distended, organomegaly, tenderness - Genitourinary Genitourinary Comment(s): deferred - Integumentary Integumentary: Present: normal turgor. Absent: jaundiced, rash, ulcer - Neurologic Neurologic: Present: CNII-XII intact. Absent: focal deficits - Musculoskeletal Musculoskeletal: Present: gait normal, strength equal bilaterally - Psychiatric Psychiatric: Present: A&O x's 3, appropriate affect, intact judgment & insight Results CBC & Chem 7: 12/11/20 08:14 12/10/20 10:19 Labs: Abnormal Lab Results - Last 24 Hours (Table) 12/08/20 12/08/20 12/08/20 Range/Units 18:05 18:05 18:05 RDW 16.6 H (11.5-15.5) % APTT 19.7 L (22.0-30.0) sec D-Dimer 0.64 H (<0.60) mg/L FEU BUN 22 H (7-17) mg/dL Glucose 149 H (74-99) mg/dL Total Protein 6.1 L (6.3-8.2) g/dL Assessment and Plan Assessment: 1. Acute on chronic dyspnea; secondary to COPD exacerbation-readmission; patient was recently hospitalized for an acute COPD exacerbation as the patient was taken off her long-term steroid medication and the patient was taking Combivent a prednisone for many years. 2. Chest wall pain; patient is also having skeletal-type of chest wall pain involving the lateral and posterior aspect of the left chest; reproducible upon palpating; no evidence of any trauma - Previous CT angios the chest that was done on September 2010 showed extensive emphysema without any acute abnormalities involving the skeletal structures. There was a concern of a pulmonary nodule in the right upper lobe for which the patient underwent a further PET scan that showed no metabolic activity. Noted the patient was recently hospitalized for an acute COPD exacerbation as the patient was taken off her long-term steroid medication and the patient was taking Combivent a prednisone for many years. - Patient has been given Lidoderm patch to be applied locally for chest wall pain - Pulmonary has evaluated patient and recommending repeat CT of chest 3. Advanced COPD with upper lobe changes/bullous changes and the patient has been treated for extensive pneumonias in the past; patient was recently taken off her long-term steroids which she was taking for many years - DuoNeb nebulizer treatments around the clock along with steroid nebulizers; patient has been sent to [facility] Solu-Medrol 40 mg IV every 8 hours 4. Acute on chronic hypoxic respiratory failure secondary to COPD exacerbation; as above 5. Right upper lobe opacity; outpatient follow-up; CAT scan of the chest that was done on 09/28/2020 followed by a PET scan that was done on 10/18/2020 showing no evidence of any significant metabolic activity in the right upper lobe. As such, no clear indication of an underlying malignancy. 6. Chronic tobacco use; counseling done on need for smoking cessation 7. Hypertension; amlodipine 10 mg daily, hydrochlorothiazide 25 mg daily, metoprolol 25 mg every 24 hours 8. Recent H. pylori infection; patient is being treated on outpatient basis with a combination of doxycycline and Flagyl. DVT prophylaxis; SCDs/heparin CODE STATUS; full code
--- NOTE | 2020-12-11 10:37 | P.PN ---
Subjective Progress Note Date: 12/10/20 Principal diagnosis: Acute on chronic hypoxic respiratory failure Acute exacerbation COPD Chronic chest wall pain 80-year-old female patient known history of COPD, steroid dependent, Symbicort as maintenance in addition to DuoNeb nebulized treatments [id number]. The hospital approximately 3 weeks ago where she can for shortness of breath after quitting her steroids. She had a brief hospitalization which was given systemic steroids and she was optimized and she was discharged home. She came in for a similar problem worsening shortness of breath and pain across the lateral part of the chest posteriorly and laterally above the flank. The pain is around 8 out of 10 in severity, very much reproducible upon palpating the involved area. She states that she was coughing for the past 3-4 days. No hemoptysis. No pleurisy.. Unable to see her bellows charger assembler and based on that she end up coming to the emergency. Chest x-ray was consistent with COPD. Cardiac enzymes were negative. BNP level was nonelevated. COVID 19 testing was negative. Note the time of her discharge from the hospital 3 weeks ago, the patient was given prednisone burst taper, she was asked to complete a course of tetracycline and metronidazole for H. pylori. 12/10/2020 Patient is seen and evaluated in follow-up on the regular medical floor. She is currently sitting up at the bedside. Awake and alert in no acute distress. Breathing a bit easier today compared to yesterday. Patient continues to complain of dyspnea with minimal exertion and left-sided chest wall pain. She is maintaining O2 saturations in the mid 90s on 3 L/m per nasal cannula. Vital signs are reviewed with a temperature of 97.8, pulse 88, respiration 14 and blood pressure 143/66 Remains on Symbicort, DuoNeb inhalations, IV Solu-Medrol. Lidoderm patch in place for chest wall pain. CT angiogram revealed no evidence of acute pulmonary embolism. There is some mild progressive thickening of the pleural margin the right apex. Extensive emphysematous changes. EKG reveals normal sinus rhythm without any acute ST or T wave abnormalities. We will plan to continue current treatment regimen for COPD exacerbation; continue to increase activity as tolerated Objective - Vital Signs Vital signs: Vital Signs Temp 97.8 F 12/10/20 07:00 Pulse 85 12/10/20 11:16 Resp 14 12/10/20 09:00 BP 143/66 12/10/20 07:00 Pulse Ox 97 12/10/20 07:00 Intake & Output 12/09/20 12/10/20 12/10/20 18:59 06:59 18:59 Intake Total 200 Balance 200 Intake: Oral 200 Other: Voiding Method Toilet Toilet Toilet # Voids 3 1 - Exam GENERAL EXAM: Alert, active, pleasant 80-year-old female patient, comfortable in no apparent distress. On 3 L nasal cannula Head exam was generally normal. There was no scleral icterus or corneal arcus. Mucous membranes were moist. Neck was supple and without jugular venous distension, thyromegaly, or carotid bruits. Carotids were easily palpable bilaterally. There was no adenopathy. CHEST: No chest wall deformity. LUNGS: Equal air entry with faint expiratory wheeze, diminished. CVS: S1 and S2 normal with no audible murmur, regular rhythm. ABDOMEN: No hepatosplenomegaly, normal bowel sounds, no guarding or rigidity. SKIN: No rashes CENTRAL NERVOUS SYSTEM: No focal deficits, tone is normal in all 4 extremities. - Labs CBC & Chem 7: 12/11/20 08:14 12/10/20 10:19 Labs: Abnormal Lab Results - Last 24 Hours (Table) 12/10/20 12/10/20 Range/Units 10:19 10:19 WBC 10.8 H (3.8-10.6) k/uL RDW 16.7 H (11.5-15.5) % Neutrophils # 9.7 H (1.3-7.7) k/uL Lymphocytes # 0.5 L (1.0-4.8) k/uL Sodium 136 L (137-145) mmol/L BUN 24 H (7-17) mg/dL Glucose 165 H (74-99) mg/dL Assessment and Plan Assessment: 1. Acute on chronic dyspnea; secondary to COPD exacerbation-readmission; patient was recently hospitalized for an acute COPD exacerbation as the patient was taken off her long-term steroid medication and the patient was taking Combivent a prednisone for many years. 2. Chest wall pain; patient is also having skeletal-type of chest wall pain involving the lateral and posterior aspect of the left chest; reproducible upon palpating; no evidence of any trauma - Previous CT angios the chest that was done on September 2010 showed extensive emphysema without any acute abnormalities involving the skeletal structures. There was a concern of a pulmonary nodule in the right upper lobe for which the patient underwent a further PET scan that showed no metabolic activity. Noted the patient was recently hospitalized for an acute COPD exacerbation as the patient was taken off her long-term steroid medication and the patient was taking Combivent a prednisone for many years. - Patient has been given Lidoderm patch to be applied locally for chest wall pain - Pulmonary has evaluated patient and recommending repeat CT of chest 3. Advanced COPD with upper lobe changes/bullous changes and the patient has been treated for extensive pneumonias in the past; patient was recently taken off her long-term steroids which she was taking for many years - DuoNeb nebulizer treatments around the clock along with steroid nebulizers; patient has been sent to [facility] Solu-Medrol 40 mg IV every 8 hours 4. Acute on chronic hypoxic respiratory failure secondary to COPD exacerbation; as above 5. Right upper lobe opacity; outpatient follow-up; CAT scan of the chest that was done on 09/28/2020 followed by a PET scan that was done on 10/18/2020 showin g no evidence of any significant metabolic activity in the right upper lobe. As such, no clear indication of an underlying malignancy. 6. Chronic tobacco use; counseling done on need for smoking cessation 7. Hypertension; amlodipine 10 mg daily, hydrochlorothiazide 25 mg daily, metoprolol 25 mg every 24 hours 8. Recent H. pylori infection; patient is being treated on outpatient basis with a combination of doxycycline and Flagyl. DVT prophylaxis; SCDs/heparin CODE STATUS; full code
--- NOTE | 2020-12-11 11:28 | P.PN ---
Subjective Progress Note Date: 12/11/20 80-year-old female patient known history of COPD was been steroid dependent for many years follow-up through our office on the the care of Dr. Sarabia. The patient also utilizes Symbicort as maintenance in addition to DuoNeb nebulized treatments [id number]. The hospital approximately 3 weeks ago where she can for shortness of breath after quitting her steroids. Note that the patient remains on prednisone for years she was investigated with the medication as well as being treated for a H. pylori the stomach infection. According that she became more short of breath. She had a brief hospitalization which was given systemic steroids and she was optimized and she was discharged home. She came in for a similar problem worsening shortness of breath and pain across the lateral part of the chest posteriorly and laterally above the flank. The pain is around 8 out of 10 in severity, very much reproducible upon palpating the involved area. She states that she was coughing for the past 3-4 days. No hemoptysis. No pleurisy.. Unable to see her director food and beverage and based on that she end up coming to the emergency. Chest x-ray was consistent with COPD. Cardiac enzymes were negative. BNP level was nonelevated. COVID 19 testing was negative. Note the time of her discharge from the hospital 3 weeks ago, the patient was given prednisone burst taper, she was asked to complete a course of tetracycline and metronidazole for H. pylori. She was admitted on Symbicort and albuterol nebulized treatments on a daily basis regarding her COPD. Currently she has no fever. No chills. Cardiac enzymes are negative. Electrodes are all within normal limits. D-dimer level is low. The patient is seen today 12/10/2020 and follow-up on the regular medical floor. She is currently sitting up at the bedside. Awake and alert in no acute distress. Breathing a bit easier today compared to yesterday. Still dyspneic with minimal exertion. She is maintaining O2 saturations in the mid 90s on 3 L/m per nasal cannula. Afebrile. Hemodynamically stable. Remains on Symbicort, DuoNeb inhalations, IV Solu-Medrol. Her main complaint today as left lower back pain. Lidoderm patch in place. CT angiogram revealed no evidence of acute pulmonary embolism. There is some mild progressive thickening of the pleural margin the right apex. Extensive emphysematous changes. EKG reveals normal sinus rhythm without any acute ST or T wave abnormalities. 12/11/2020, the patient feels well and she has no new complaints. No chest pain. She has adequate air entry bilaterally and there is no significant wheezing. She remains hemodynamically stable. She is on Symbicort, DuoNeb nebulized treatments around the clock and she is also on IV Solu-Medrol. Her back pain is still there and the patient was offered a lidocaine patch. CAT scan of the chest showed no evidence of any pulmonary embolism and there were some chronic changes with emphysema. Her cardiac rhythm is atrial fibrillation/flutter with a controlled rate for now. The patient went into atrial fibrillation earlier this morning at around 7:00. She is currently on IV heparin. Rate is controlled for now. She was also started on Cardizem drip at 5 mg L an hour and currently is drip is running at 10 mg/hour. No vomiting. No abdominal pain. No chest pain. No palpitation. No syncope. Tolerating her diet. Objective - Vital Signs Vital signs: Vital Signs Temp 98.9 F 12/11/20 07:49 Pulse 88 12/11/20 11:19 Resp 20 12/11/20 10:20 BP 111/62 12/11/20 10:20 Pulse Ox 95 12/11/20 07:49 Intake & Output 12/10/20 12/11/20 12/11/20 18:59 06:59 18:59 Intake Total 240 9.583 Balance 240 9.583 Intake: Intake, IV Titration 9.583 Amount Diltiazem 125 mg In 9.583 Sodium Chloride 0.9% 100 ml @ 5 MG/HR 5 mls/hr IV .Q24H [facility] Rx#:[id number] Oral 240 Other: Voiding Method Toilet Toilet Toilet # Voids 1 1 - Exam GENERAL EXAM: Alert, active, pleasant 80-year-old female patient, comfortable in no apparent distress. On 3 L nasal cannula Head exam was generally normal. There was no scleral icterus or corneal arcus. Mucous membranes were moist. EYES: Normal reaction of pupils, equal size. NOSE: Clear with pink turbinates. THROAT: No erythema or exudates. Neck was supple and without jugular venous distension, thyromegaly, or carotid bruits. Carotids were easily palpable bilaterally. There was no adenopathy. CHEST: No chest wall deformity. LUNGS: Equal air entry with faint expiratory wheeze, diminished. CVS: S1 and S2 normal with no audible murmur, regular rhythm. ABDOMEN: No hepatosplenomegaly, normal bowel sounds, no guarding or rigidity. SPINE: No scoliosis or deformity SKIN: No rashes CENTRAL NERVOUS SYSTEM: No focal deficits, tone is normal in all 4 extremities. EXTREMITIES: Cast to the left wrist. There is no peripheral edema. No clubbing, no cyanosis. Peripheral pulses are intact. - Labs CBC & Chem 7: 12/11/20 08:14 12/10/20 10:19 Labs: Abnormal Lab Results - Last 24 Hours (Table) 12/10/20 12/11/20 12/11/20 Range/Units 13:24 08:14 08:14 RDW 16.8 H (11.5-15.5) % Lymphocytes # 0.5 L (1.0-4.8) k/uL APTT 19.5 L (22.0-30.0) sec Urine Protein Trace H (Negative) Assessment and Plan Plan: 1 acute on chronic dyspnea possibly secondary to COPD exacerbation-readmission. The patient is also having skeletal-type of chest wall pain involving the lateral and posterior aspect of the left chest. The pain is reproducible upon palpating the area. No evidence of any trauma. No evidence of any chest wall deformity. Previous CT angios the chest that was done on September 2010 showed extensive emphysema without any acute abnormalities involving the skeletal structures. There was a concern of a pulmonary nodule in the right upper lobe for which the patient underwent a further PET scan that showed no metabolic activity. Noted the patient was recently hospitalized for an acute COPD exacerbation as the patient was taken off her long-term steroid medication and the patient was taking Combivent a prednisone for many years. 2 advanced COPD with upper lobe changes/bullous changes and the patient has been treated for extensive pneumonias in the past, none for now 3 chronic hypoxic respiratory failure secondary to COPD 4 vague right upper lobe opacity being followed up in our office and the patient a CAT scan of the chest that was done on 09/28/2020 followed by a PET scan that was done on 10/18/2020 showing no evidence of any significant metabolic activity in the right upper lobe. As such, no clear indication of an underlying malignancy. 5 history of smoking 6 hypertension 7 hyperlipidemia 8 H. pylori being treated on outpatient basis with a combination of doxycycline and Flagyl. 9 A. fib/flutter, with a preserved LV function and ejection fraction of 55-60%. Currently on a Cardizem drip at 10 mg an hour and the patient is also on IV heparin. Plan DuoNeb nebulized treatments around the clock Stop the IV Solu-Medrol Cardizem drip at 10 mg an hour IV heparin We'll switch later on to Eliquis for long-term anticoagulation Prednisone burst taper we'll continue to follow.
[2020-12-11] MEDS: predniSONE 20 MG TAB PO SCH (11:40)
[2020-12-11] MEDS: MUPIROCIN 2% OINT 22 GM TUBE NASAL SCH ×3 (11:40→20:39)
--- NOTE | 2020-12-11 12:18 | P.PN ---
Subjective Progress Note Date: 12/11/20 CHIEF COMPLAINT: Shortness of breath HISTORY OF PRESENT ILLNESS: 12/09/2020 This is a 80-year-old female with a past medical history significant for COPD with home oxygen use, hypertension, hyperlipidemia, and recent H. pylori diagnosis. Patient follows in the office with Dr. Neff. We have been asked to see the patient in consultation for shortness of breath. Patient examined this morning at the bedside. Patient states she has been feeling short of breath for the last week. She denies shortness of breath at rest but states with minimal exertion such as walking to the bathroom she becomes very dyspneic. She states she is unable to lay flat in bed due to feeling short of breath. She reports home oxygen use. She denies chest pain or pressure. Denies dizziness or lightheadedness. 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 EKG reveals sinus mechanism with no signs of acute ischemia Chest xray mild pulmonary interstitial infiltrates consistent with fibrosis similar to old exam. No heart failure seen. Laboratory data: WBC 7.4. Hemoglobin 10.1. Platelet count 311. D-dimer 0.64. Sodium 139. Potassium 3.9. BUN 22. Creatinine 0.91. BNP 236. Troponin negative 3. Current home cardiac medications include metoprolol succinate 12.5 mg daily, hydrochlorothiazide 25 mg daily, amlodipine 10 mg daily Echocardiogram completed in 2019 revealed ejection fraction greater than 55% Patient underwent cardiac catheterization in 2018 revealing mild disease of the RCA and LAD. 12/10/2020 Patient examined this morning at the bedside. Patient complains of mild shortness of breath. She does appear mildly dyspneic. However she has just walked back to her bed after using the restroom. Patient is complaining of significant left flank pain and left sided abdominal pain this morning. Echocardiogram completed revealed ejection fraction 55-60%, [id number] mitral regurgitation, mild tricuspid regurgitation, and mild pulmonary h ypertension. 12/11/2020 Patient examined this morning at the bedside. Patient denies chest pain or p ressure. She reports mild shortness of breath. Patient went into A. fib with RVR this morning. PHYSICAL EXAM: VITAL SIGNS: Reviewed. GENERAL: Well-developed in no acute distress. HEENT: Head is normocephalic. Pupils are equal, round. Sclerae anicteric. Mucous membranes of the mouth are moist. Neck supple. No JVD or thyromegaly LUNGS: Respirations even and unlabored. Lungs diminished bilaterally with no rales auscultated. HEART: Tachycardic. Irregular rate and rhythm. S1 and S2 heard. EXTREMITIES: Normal range of motion. No clubbing or cyanosis. Peripheral pulses intact. No lower extremity edema NEUROLOGIC: Awake and alert. Oriented x 3. ASSESSMENT: Shortness of breath; possibly secondary to COPD exacerbation New-onset atrial fibrillation with RVR Left flank pain Chronic hypoxic respiratory failure on home O2 Recent diagnosis of H. pylori Hypertension Hyperlipidemia Mild nonobstructive coronary artery disease involving RCA and LAD, per cardiac catheterization in 2018 Former nicotine dependence PLAN: Increase metoprolol succinate to 25 mg daily Discontinue amlodipine Patient has been started on IV Cardizem infusion. Continue Cardizem at this time. Patient was started on IV heparin this morning. Will transition to Eliquis 5 mg twice a day Continue telemetry monitoring Further recommendations pending patient course Nurse practitioner note has been reviewed by physician. Signing provider agrees with the documented findings, assessment, and plan of care. Objective - Vital Signs Vital signs: Vital Signs Temp 98.9 F 12/11/20 07:49 Pulse 88 12/11/20 11:19 Resp 20 12/11/20 10:20 BP 111/62 12/11/20 10:20 Pulse Ox 95 12/11/20 07:49 Intake & Output 12/10/20 12/11/20 12/11/20 18:59 06:59 18:59 Intake Total 240 9.583 Balance 240 9.583 Intake: Intake, IV Titration 9.583 Amount Diltiazem 125 mg In 9.583 Sodium Chloride 0.9% 100 ml @ 5 MG/HR 5 mls/hr IV .Q24H [facility] Rx#:[id number] Oral 240 Other: Voiding Method Toilet Toilet Toilet # Voids 1 1 - Labs CBC & Chem 7: 12/11/20 08:14 12/10/20 10:19 Labs: Abnormal Lab Results - Last 24 Hours (Table) 12/10/20 12/11/20 12/11/20 Range/Units 13:24 08:14 08:14 RDW 16.8 H (11.5-15.5) % Lymphocytes # 0.5 L (1.0-4.8) k/uL APTT 19.5 L (22.0-30.0) sec Urine Protein Trace H (Negative)
[2020-12-11] MEDS: APIXABAN 5 MG TAB PO SCH ×2 (12:57→20:39)
[2020-12-11] MEDS: DILTIAZEM ORAL 30 MG TAB PO SCH ×2 (15:32→20:40)
--- NOTE | 2020-12-11 23:49 | P.PN ---
Progress Note - Text Progress Note Date: 12/11/20 History of presenting complaint: This is a pleasant 80-year-old patient of Dr. Ariza.leveler helper is Dr. Sarabia. Chronic stable medical conditions include hyperlipidemia, hypertension, osteoarthritis, diverticulosis, home oxygen 2 L. positive for H. pylori. Recently the hospital for COPD exacerbation. Now presents for shortness of breath. For about a week. Not so much at rest as much with exertion. For example walk to the bathroom. Some orthopnea. No fever no chills. Today-patient found to be in atrial fibrillation with rapid ventricular rate. Was put on a Cardizem drip. Also is being treated with COPD exacerbation. Oral intake is fine. Review of systems: Was done for constitutional, cardiovascular, GI, pulmonary. relevant finding as above Active Medications Acetaminophen (Acetaminophen Tab 325 Mg Tab) 650 mg PO Q6HR PRN PRN Reason: Fever and/ or Pain Last Admin: 12/10/20 06:15 Dose: 650 mg Documented by: Albuterol/Ipratropium (Ipratropium-Albuterol 3 Ml Neb) 3 ml INHALATION RT-QID [facility] Last Admin: 12/11/20 20:02 Dose: 3 ml Documented by: Alprazolam (Alprazolam 0.25 Mg Tab) 0.25 mg PO DAILY PRN PRN Reason: Anxiety Last Admin: 12/10/20 21:30 Dose: 0.25 mg Documented by: Apixaban (Apixaban 5 Mg Tab) 5 mg PO BID [facility] Last Admin: 12/11/20 20:39 Dose: 5 mg Documented by: Budesonide/Formoterol Fumarate (Symbicort 160-4.5 Mcg Inhaler) 2 puff INHALATION RT-BID [facility] Last Admin: 12/11/20 20:02 Dose: 2 puff Documented by: Cholecalciferol (Cholecalciferol 25 Mcg (1000 Iu) Tablet) 25 mcg PO DAILY [facility] Cyclobenzaprine HCl (Cyclobenzaprine 5 Mg Tab) 5 mg PO BID PRN PRN Reason: Muscle Spasm Last Admin: 12/10/20 15:40 Dose: 5 mg Documented by: Diltiazem HCl (Diltiazem Oral 30 Mg Tab) 30 mg PO TID [facility] Last Admin: 12/11/20 20:40 Dose: 30 mg Documented by: Hydrochlorothiazide (Hydrochlorothiazide 25 Mg Tab) 25 mg PO DAILY [facility] Last Admin: 12/11/20 08:26 Dose: Not Given Documented by: Lidocaine (Lidocaine 5% Patch) 1 patch TOPICAL DAILY [facility] Last Admin: 12/11/20 08:25 Dose: 1 patch Documented by: Metoprolol Succinate (Metoprolol Succinate (Er) 25 Mg Tab.Er.24h) 25 mg PO DAILY [facility] Last Admin: 12/11/20 08:25 Dose: 25 mg Documented by: Mupirocin (Mupirocin 2% Oint 22 Gm Tube) 1 applic NASAL TID [facility] Last Admin: 12/11/20 20:39 Dose: 1 applic Documented by: Nitroglycerin (Nitroglycerin Sl Tabs 0.4 Mg Tab) 0.4 mg SUBLINGUAL Q5M PRN PRN Reason: Chest Pain Pantoprazole Sodium (Pantoprazole 40 Mg Tablet) 40 mg PO DAILY [facility] Last Admin: 12/11/20 08:25 Dose: 40 mg Documented by: Prednisone (Prednisone 20 Mg Tab) 40 mg PO DAILY [facility] Last Admin: 12/11/20 11:40 Dose: 40 mg Documented by: Past medical history to include: COPD, hyperlipidemia, hypertension, osteoarthritis, pneumonia, diverticulosis, home oxygen 2 L, left arm fracture, GERD, H. pylori, diverticulitis, urinary incontinence Social history: Lives alone. Smoked for about 39 years stopped in 1997. Smoked less than a pack a day. No alcohol. Physical examination: VITAL SIGNS: 98.1, 117, 20, 106/67, 95% on 3 L GENERAL: Sitting up in bed, not in distress EYES: Pupils equal. Conjunctiva normal. HEENT: External appearance of nose and ears normal, oral cavity grossly normal. NECK: JVD not raised; masses not palpable. HEART: First and second heart sounds are normal; no edema. LUNGS: Respiratory rate increased, decreased breath sounds. ABDOMEN: Soft, nontender, liver spleen not palpable, no masses palpable. PSYCH: Alert and oriented x3; mood and affect anxious - INVESTIGATIONS, reviewed in the clinical context: White count 8.7 hemoglobin 13.1 creatinine 0.6 Telemetry-atrial fibrillation with a rapid ventricular rate 2-D echocardiogram-EF 55-60%. I moderate mitral regurgitation. Assessment and plan: -Acute COPD exacerbation in an ex-smoker on nebulized bronchodilators, Symbicort, IV Gxhy-Awffcs-ybdpjwazl -New onset of atrial fibrillation with a rapid ventricular rate. On IV Cardizem. Uncontrolled. On IV Cardizem drip. Toprol-XL. Will be started on eliquis -GERD on Protonix -H pylori continue with Flagyl and Protonix -Essential hypertension, continue hydrochlorothiazide Toprol-XL -Primary osteoarthritis, use Tylenol when necessary -Colonic diverticulosis , asymptomatic -chronic hypoxic respiratory failure on home oxygen 2 L Patient be switched over to oral prednisone. IV Cardizem was discontinued. Put on oral Cardizem. Other medications to continue. Follow with cardiology and pulmonary. Discussed with the patient.
[2020-12-12] MEDS: ALPRAZolam 0.25 MG TAB PO PRN (00:59)
[2020-12-12] MEDS: IPRATROPIUM-ALBUTEROL 3 ML NEB INHALATION SCH ×4 (07:15→19:15)
[2020-12-12] MEDS: SYMBICORT 160-4.5 MCG INHALER INHALATION SCH ×2 (07:15→19:15)
[2020-12-12] MEDS: hydroCHLOROthiazide 25 MG TAB PO SCH (09:55)
[2020-12-12] MEDS: predniSONE 20 MG TAB PO SCH (09:56)
[2020-12-12] MEDS: METOPROLOL SUCCINATE (ER) 25 MG TAB.ER.24H PO SCH (09:56)
[2020-12-12] MEDS: CHOLECALCIFEROL 25 MCG (1000 IU) TABLET PO SCH (09:56)
[2020-12-12] MEDS: PANTOPRAZOLE 40 MG TABLET PO SCH (09:56)
[2020-12-12] MEDS: APIXABAN 5 MG TAB PO SCH ×2 (09:56→20:24)
[2020-12-12] MEDS: DILTIAZEM ORAL 30 MG TAB PO SCH ×3 (09:57→20:24)
[2020-12-12] MEDS: MUPIROCIN 2% OINT 22 GM TUBE NASAL SCH ×3 (10:00→20:24)
[2020-12-12] MEDS: LIDOCAINE 5% PATCH TOPICAL SCH (10:00)
[2020-12-12 12:06] LABS: Basophils # (A) 0.04 X 10*3/uL (0.00-0.10); Basophils % (A) 0.5 %; Eosinophils # (A) 0.01 X 10*3/uL (0.04-0.35); Eosinophils % (A) 0.1 %; HCT 38.3 % (37.2-46.3); HGB 11.8 g/dL (12.0-15.0); Lymphocytes # (A) 1.18 X 10*3/uL (0.90-5.00); Lymphocytes % (A) 15.4 %; MCH 26.9 pg (27.0-32.0); MCHC 30.8 g/dL (32.0-37.0); MCV 87.4 fL (80.0-97.0); Mean Platelet Volume 10.4 fL (9.5-12.2); Monocytes # (A) 0.76 X 10*3/uL (0.20-1.00); Monocytes % (A) 9.9 %; Neutrophils % (A) 70.6 %; Platelet Count 361 X 10*3/uL (140-440); RBC 4.38 X 10*6/uL (4.10-5.20); RDW 17.2 % (11.5-14.5); WBC 7.66 X 10*3/uL (4.50-10.00)
--- NOTE | 2020-12-12 13:40 | P.PN ---
Subjective Progress Note Date: 12/12/20 80-year-old female patient known history of COPD was been steroid dependent for many years follow-up through our office on the the care of Dr. Sarabia. The patient also utilizes Symbicort as maintenance in addition to DuoNeb nebulized treatments [id number]. The hospital approximately 3 weeks ago where she can for shortness of breath after quitting her steroids. Note that the patient remains on prednisone for years she was investigated with the medication as well as being treated for a H. pylori the stomach infection. According that she became more short of breath. She had a brief hospitalization which was given systemic steroids and she was optimized and she was discharged home. She came in for a similar problem worsening shortness of breath and pain across the lateral part of the chest posteriorly and laterally above the flank. The pain is around 8 out of 10 in severity, very much reproducible upon palpating the involved area. She states that she was coughing for the past 3-4 days. No hemoptysis. No pleurisy.. 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 Chest x-ray was consistent with COPD. Cardiac enzymes were negative. BNP level was nonelevated. COVID 19 testing was negative. Note the time of her discharge from the hospital 3 weeks ago, the patient was given prednisone burst taper, she was asked to complete a course of tetracycline and metronidazole for H. pylori. She was admitted on Symbicort and albuterol nebulized treatments on a daily basis regarding her COPD. Currently she has no fever. No chills. Cardiac enzymes are negative. Electrodes are all within normal limits. D-dimer level is low. The patient is seen today 12/10/2020 and follow-up on the regular medical floor. She is currently sitting up at the bedside. Awake and alert in no acute distress. Breathing a bit easier today compared to yesterday. Still dyspneic with minimal exertion. She is maintaining O2 saturations in the mid 90s on 3 L/m per nasal cannula. Afebrile. Hemodynamically stable. Remains on Symbicort, DuoNeb inhalations, IV Solu-Medrol. Her main complaint today as left lower back pain. Lidoderm patch in place. CT angiogram revealed no evidence of acute pulmonary embolism. There is some mild progressive thickening of the pleural margin the right apex. Extensive emphysematous changes. EKG reveals normal sinus rhythm without any acute ST or T wave abnormalities. 12/11/2020, the patient feels well and she has no new complaints. No chest pain. She has adequate air entry bilaterally and there is no significant wheezing. She remains hemodynamically stable. She is on Symbicort, DuoNeb nebulized treatments around the clock and she is also on IV Solu-Medrol. Her back pain is still there and the patient was offered a lidocaine patch. CAT scan of the chest showed no evidence of any pulmonary embolism and there were some chronic changes with emphysema. Her cardiac rhythm is atrial fibrillation/flutter with a controlled rate for now. The patient went into atrial fibrillation earlier this morning at around 7:00. She is currently on IV heparin. Rate is controlled for now. She was also started on Cardizem drip at 5 mg L an hour and currently is drip is running at 10 mg/hour. No vomiting. No abdominal pain. No chest pain. No palpitation. No syncope. Tolerating her diet. 60,021 the patient is feeling well. Her COPD stable. She was in atrial fibrillation with rapid ventricular response and A. fib converted and she is back to normal sinus rhythm this morning. She was taken off IV heparin. She was taken off the IV Cardizem. She was started on Eliquis. Hemoglobin was 13 and dropped down to 11.8. We are suspecting a GI bleed. Stool for occult blood will be sent for now. Cardiology is on the case. No other issues for now. She is resting comfortably in bed and she is able to tolerate her diet. No nausea. No vomiting. No emesis. She has H pylori for which he received treatment Objective - Vital Signs Vital signs: Vital Signs Temp 97.9 F 12/12/20 08:00 Pulse 88 12/12/20 11:15 Resp 20 12/12/20 08:00 BP 159/73 12/12/20 08:00 Pulse Ox 95 12/12/20 08:00 Intake & Output 12/11/20 12/12/20 12/12/20 18:59 06:59 18:59 Intake Total 511.083 240 Balance 511.083 240 Intake: Intake, IV Titration 61.083 Amount Diltiazem 125 mg In 61.083 Sodium Chloride 0.9% 100 ml @ 5 MG/HR 5 mls/hr IV .Q24H [facility] Rx#:[id number] Oral 450 240 Other: Voiding Method Toilet Toilet Toilet # Voids 2 2 - Exam GENERAL EXAM: Alert, active, pleasant 80-year-old female patient, comfortable in no apparent distress. On 3 L nasal cannula Head exam was generally normal. There was no scleral icterus or corneal arcus. Mucous membranes were moist. EYES: Normal reaction of pupils, equal size. NOSE: Clear with pink turbinates. THROAT: No erythema or exudates. Neck was supple and without jugular venous distension, thyromegaly, or carotid bruits. Carotids were easily palpable bilaterally. There was no adenopathy. CHEST: No chest wall deformity. LUNGS: Equal air entry with faint expiratory wheeze, diminished. CVS: S1 and S2 normal with no audible murmur, regular rhythm. ABDOMEN: No hepatosplenomegaly, normal bowel sounds, no guarding or rigidity. SPINE: No scoliosis or deformity SKIN: No rashes CENTRAL NERVOUS SYSTEM: No focal deficits, tone is normal in all 4 extremities. EXTREMITIES: Cast to the left wrist. There is no peripheral edema. No clubbing, no cyanosis. Peripheral pulses are intact. - Labs CBC & Chem 7: 12/12/20 07:06 12/10/20 10:19 Labs: Abnormal Lab Results - Last 24 Hours (Table) 12/12/20 Range/Units 07:06 Hgb 11.8 L (12.0-15.0) g/dL MCH 26.9 L (27.0-32.0) pg MCHC 30.8 L (32.0-37.0) g/dL RDW 17.2 H (11.5-14.5) % Immature Gran # 0.27 H (0.00-0.04) X 10*3/uL Eosinophils # 0.01 L (0.04-0.35) X 10*3/uL Assessment and Plan Plan: 1 COPD with chronic dyspnea currently inactive in stable 2 advanced COPD with upper lobe changes/bullous changes and the patient has been treated for extensive pneumonias in the past, none for now 3 chronic hypoxic respiratory failure secondary to COPD 4 vague right upper lobe opacity being followed up in our office and the patient a CAT scan of the chest that was done on 09/28/2020 followed by a PET scan that was done on 10/18/2020 showing no evidence of any significant metabolic activity in the right upper lobe. As such, no clear indication of an underlying malignancy. 5 history of smoking 6 hypertension 7 hyperlipidemia 8 H. pylori being treated on outpatient basis with a combination of doxycycline and Flagyl. 9 A. fib/flutter, with a preserved LV function and ejection fraction of 55-60%. converted to normal sinus rhythm 10 questionable GI bleed Plan DuoNeb nebulized treatments around the clock prednisone taper starting with 40 mg Cardizem 30 mg by mouth 3 times a day Eliquis for long-term anticoagulation stool for occult blood and monitor hemoglobin as long as the patient is on anticoagulation with Eliquis we'll continue to follow.
--- NOTE | 2020-12-12 15:40 | P.PN ---
<Leigha Carr A - Last Filed: 12/12/20 15:38> Subjective Progress Note Date: 12/12/20 CHIEF COMPLAINT: Shortness of breath HISTORY OF PRESENT ILLNESS: 12/09/2020 This is a 80-year-old female with a past medical history significant for COPD with home oxygen use, hypertension, hyperlipidemia, and recent H. pylori diagnosis. Patient follows in the office with Dr. Neff. We have been asked to see the patient in consultation for shortness of breath. Patient examined this morning at the bedside. Patient states she has been feeling short of breath for the last week. She denies shortness of breath at rest but states with minimal exertion such as walking to the bathroom she becomes very dyspneic. She states she is unable to lay flat in bed due to feeling short of breath. She reports home oxygen use. She denies chest pain or pressure. Denies dizziness or lightheadedness. Patient states she was scheduled to see her acid painter on an outpatient basis but she came to the emergency room when her shortness of breath worsened. EKG reveals sinus mechanism with no signs of acute ischemia Chest xray mild pulmonary interstitial infiltrates consistent with fibrosis si milar to old exam. No heart failure seen. Laboratory data: WBC 7.4. Hemoglobin 10.1. Platelet count 311. D-dimer 0.64. Sodium 139. Potassium 3.9. BUN 22. Creatinine 0.91. BNP 236. Troponin n egative 3. Current home cardiac medications include metoprolol succinate 12.5 mg daily, hydrochlorothiazide 25 mg daily, amlodipine 10 mg daily Echocardiogram completed in 2019 revealed ejection fraction greater than 55% Patient underwent cardiac catheterization in 2018 revealing mild disease of the RCA and LAD. 12/10/2020 Patient examined this morning at the bedside. Patient complains of mild lisette rtness of breath. She does appear mildly dyspneic. However she has just walked back to her bed after using the restroom. Patient is complaining of significant left flank pain and left sided abdominal pain this morning. Echocardiogram completed revealed ejection fraction 55-60%, [id number] mitral regurgitation, mild tricuspid regurgitation, and mild pulmonary hypertension. 12/11/2020 Patient examined this morning at the bedside. Patient denies chest pain or pressure. She reports mild shortness of breath. Patient went into A. fib with RVR this morning. 12/12/2020 Patient converted from atrial fibrillation to sinus rhythm yesterday. IV Cardizem was discontinued. She was started on oral Cardizem 30 mg 3 times a day. Patient also transition to Eliquis from IV heparin. Patient had a drop in her hemoglobin today to 11.8 from 13.1. PHYSICAL EXAM: VITAL SIGNS: Reviewed. GENERAL: Well-developed in no acute distress. HEENT: Head is normocephalic. Pupils are equal, round. Sclerae anicteric. Mucous membranes of the mouth are moist. Neck supple. No JVD or thyromegaly LUNGS: Respirations even and unlabored. Lungs diminished bilaterally with no rales auscultated. HEART: Regular rate and rhythm. S1 and S2 heard. EXTREMITIES: Normal range of motion. No clubbing or cyanosis. Peripheral pulses intact. No lower extremity edema NEUROLOGIC: Awake and alert. Oriented x 3. ASSESSMENT: Shortness of breath; secondary to COPD exacerbation New-onset paroxysmal atrial fibrillation with RVR, currently maintaining sinus mechanism Left flank pain Chronic hypoxic respiratory failure on home O2 Recent diagnosis of H. pylori Hypertension Hyperlipidemia Mild nonobstructive coronary artery disease involving RCA and LAD, per cardiac catheterization in 2018 Former nicotine dependence Anemia PLAN: Continue current dose of Cardizem Continue current dose of beta rosie therapy Continue Eliquis Monitor hemoglobin Continue telemetry monitoring Further recommendations pending patient course Nurse practitioner note has been reviewed by physician. Signing provider agrees with the documented findings, assessment, and plan of care. Objective - Vital Signs Vital signs: Vital Signs Temp 97.7 F 12/12/20 14:00 Pulse 82 12/12/20 14:00 Resp 16 12/12/20 14:00 BP 149/69 12/12/20 14:00 Pulse Ox 94 L 12/12/20 14:00 Intake & Output 12/11/20 12/12/20 12/12/20 18:59 06:59 18:59 Intake Total 511.083 340 Balance 511.083 340 Intake: Intake, IV Titration 61.083 Amount Diltiazem 125 mg In 61.083 Sodium Chloride 0.9% 100 ml @ 5 MG/HR 5 mls/hr IV .Q24H [facility] Rx#:[id number] Oral 450 340 Other: Voiding Method Toilet Toilet Toilet # Voids 2 2 - Labs CBC & Chem 7: 12/12/20 07:06 12/10/20 10:19 Labs: Abnormal Lab Results - Last 24 Hours (Table) 12/12/20 Range/Units 07:06 Hgb 11.8 L (12.0-15.0) g/dL MCH 26.9 L (27.0-32.0) pg MCHC 30.8 L (32.0-37.0) g/dL RDW 17.2 H (11.5-14.5) % Immature Gran # 0.27 H (0.00-0.04) X 10*3/uL Eosinophils # 0.01 L (0.04-0.35) X 10*3/uL <Guanakito Marino - Last Filed: 12/12/20 20:32> Objective - Vital Signs Vital signs: Vital Signs Temp 98 F 12/12/20 19:41 Pulse 68 12/12/20 19:41 Resp 18 12/12/20 19:41 BP 133/57 12/12/20 19:41 Pulse Ox 94 L 12/12/20 19:41 Intake & Output 12/12/20 12/12/20 12/13/20 06:59 18:59 06:59 Intake Total 340 Balance 340 Intake: Oral 340 Other: Voiding Method Toilet Toilet # Voids 2 1 # Bowel Movements 1 1 - Labs CBC & Chem 7: 12/12/20 07:06 12/10/20 10:19 Labs: Abnormal Lab Results - Last 24 Hours (Table) 12/12/20 Range/Units 07:06 Hgb 11.8 L (12.0-15.0) g/dL MCH 26.9 L (27.0-32.0) pg MCHC 30.8 L (32.0-37.0) g/dL RDW 17.2 H (11.5-14.5) % Immature Gran # 0.27 H (0.00-0.04) X 10*3/uL Eosinophils # 0.01 L (0.04-0.35) X 10*3/uL
--- NOTE | 2020-12-12 22:49 | P.PN ---
Progress Note - Text Progress Note Date: 12/12/20 History of presenting complaint: This is a pleasant 80-year-old patient of Dr. 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 Chronic stable medical conditions include hyperlipidemia, hypertension, osteoarthritis, diverticulosis, home oxygen 2 L. positive for H. pylori. Recently the hospital for COPD exacerbation. Now presents for shortness of breath. For about a week. Not so much at rest as much with exertion. For example walk to the bathroom. Some orthopnea. No fever no chills. Patient went into atrial fibrillation with rapid ventricular rate. Put on a Cardizem drip. Today-Hart[place] better controlled. Breathing stable. Did have a black stool. GI consulted. No abdominal pain.. Review of systems: Was done for constitutional, cardiovascular, GI, pulmonary. relevant finding as above Active Medications Acetaminophen (Acetaminophen Tab 325 Mg Tab) 650 mg PO Q6HR PRN PRN Reason: Fever and/ or Pain Last Admin: 12/10/20 06:15 Dose: 650 mg Documented by: Albuterol/Ipratropium (Ipratropium-Albuterol 3 Ml Neb) 3 ml INHALATION RT-QID [facility] Last Admin: 12/12/20 19:15 Dose: 3 ml Documented by: Alprazolam (Alprazolam 0.25 Mg Tab) 0.25 mg PO DAILY PRN PRN Reason: Anxiety Last Admin: 12/12/20 00:59 Dose: 0.25 mg Documented by: Apixaban (Apixaban 5 Mg Tab) 5 mg PO BID [facility] Last Admin: 12/12/20 20:24 Dose: 5 mg Documented by: Budesonide/Formoterol Fumarate (Symbicort 160-4.5 Mcg Inhaler) 2 puff INHALATION RT-BID [facility] Last Admin: 12/12/20 19:15 Dose: 2 puff Documented by: Cholecalciferol (Cholecalciferol 25 Mcg (1000 Iu) Tablet) 25 mcg PO DAILY [facility] Last Admin: 12/12/20 09:56 Dose: 25 mcg Documented by: Cyclobenzaprine HCl (Cyclobenzaprine 5 Mg Tab) 5 mg PO BID PRN PRN Reason: Muscle Spasm Last Admin: 12/10/20 15:40 Dose: 5 mg Documented by: Diltiazem HCl (Diltiazem Oral 30 Mg Tab) 30 mg PO TID [facility] Last Admin: 12/12/20 20:24 Dose: 30 mg Documented by: Hydrochlorothiazide (Hydrochlorothiazide 25 Mg Tab) 25 mg PO DAILY [facility] Last Admin: 12/12/20 09:55 Dose: 25 mg Documented by: Lidocaine (Lidocaine 5% Patch) 1 patch TOPICAL DAILY [facility] Last Admin: 12/12/20 10:00 Dose: 1 patch Documented by: Metoprolol Succinate (Metoprolol Succinate (Er) 25 Mg Tab.Er.24h) 25 mg PO DAILY [facility] Last Admin: 12/12/20 09:56 Dose: 25 mg Documented by: Mupirocin (Mupirocin 2% Oint 22 Gm Tube) 1 applic NASAL TID [facility] Last Admin: 12/12/20 20:24 Dose: 1 applic Documented by: Nitroglycerin (Nitroglycerin Sl Tabs 0.4 Mg Tab) 0.4 mg SUBLINGUAL Q5M PRN PRN Reason: Chest Pain Pantoprazole Sodium (Pantoprazole 40 Mg Tablet) 40 mg PO DAILY [facility] Last Admin: 12/12/20 09:56 Dose: 40 mg Documented by: Prednisone (Prednisone 20 Mg Tab) 40 mg PO DAILY [facility] Last Admin: 12/12/20 09:56 Dose: 40 mg Documented by: Past medical history to include: COPD, hyperlipidemia, hypertension, osteoarthritis, pneumonia, diverticulosis, home oxygen 2 L, left arm fracture, GERD, H. pylori, diverticulitis, urinary incontinence Social history: Lives alone. Smoked for about 39 years stopped in 1997. Smoked less than a pack a day. No alcohol. Physical examination: VITAL SIGNS: 98, 68, 18, 133.57, 94% on 2 L GENERAL: Sitting up in a chair, not in distress EYES: Pupils equal. Conjunctiva normal. HEENT: External appearance of nose and ears normal, oral cavity grossly normal. NECK: JVD not raised; masses not palpable. HEART: First and second heart sounds are normal; no edema. LUNGS: Respiratory rate increased, decreased breath sounds. ABDOMEN: Soft, nontender, liver spleen not palpable, no masses palpable. PSYCH: Alert and oriented x3; mood and affect anxious - INVESTIGATIONS, reviewed in the clinical context: December 12: White count 7.6 hemoglobin 11.8 platelets 361 White count 8.7 hemoglobin 13.1 creatinine 0.6 Telemetry-atrial fibrillation with a rapid ventricular rate 2-D echocardiogram-EF 55-60%. I moderate mitral regurgitation. Assessment and plan: -Acute COPD exacerbation in an ex-smoker on nebulized bronchodilators, Symbicort, IV Blkn-Quuiiz-pib discontinued. Stabilized -New onset of atrial fibrillation with a rapid ventricular rate. On IV Cardizem. Toprol-XL. eliquis. Heart rate controlled -Dark stools today. Hold Lovenox. GI consulted. -GERD on Protonix -H pylori continue with Flagyl and Protonix -Essential hypertension, continue hydrochlorothiazide Toprol-XL -Primary osteoarthritis, use Tylenol when necessary -Colonic diverticulosis , asymptomatic -chronic hypoxic respiratory failure on home oxygen 2 L Discussed with patient. GI consulted. Hold eliquis
[2020-12-13 02:03] VITALS: TEMP 98.2
[2020-12-13 07:02] VITALS: BP 154/69; RESP 20
[2020-12-13] MEDS: IPRATROPIUM-ALBUTEROL 3 ML NEB INHALATION SCH ×2 (07:20→11:06)
[2020-12-13] MEDS: SYMBICORT 160-4.5 MCG INHALER INHALATION SCH (07:20)
[2020-12-13] MEDS: hydroCHLOROthiazide 25 MG TAB PO SCH (08:23)
[2020-12-13] MEDS: METOPROLOL SUCCINATE (ER) 25 MG TAB.ER.24H PO SCH (08:23)
[2020-12-13] MEDS: DILTIAZEM ORAL 30 MG TAB PO SCH (08:23)
[2020-12-13] MEDS: PANTOPRAZOLE 40 MG TABLET PO SCH (08:23)
[2020-12-13] MEDS: predniSONE 20 MG TAB PO SCH (08:24)
[2020-12-13] MEDS: CHOLECALCIFEROL 25 MCG (1000 IU) TABLET PO SCH (08:24)
[2020-12-13] MEDS: MUPIROCIN 2% OINT 22 GM TUBE NASAL SCH (08:24)
[2020-12-13 09:03] LABS: HCT 38.6 % (37.2-46.3); MCH 26.8 pg (27.0-32.0); MCHC 31.1 g/dL (32.0-37.0); MCV 86.4 fL (80.0-97.0); Mean Platelet Volume 10.4 fL (9.5-12.2); Platelet Count 364 X 10*3/uL (140-440); RBC 4.47 X 10*6/uL (4.10-5.20); WBC 7.06 X 10*3/uL (4.50-10.00)
[2020-12-13 10:40] LABS: Basophils # (M) 0 X 10*3/uL (0.00-0.10); Eosinophils # (M) 0.07 X 10*3/uL (0.04-0.35); Lymphocytes # (M) 1.34 X 10*3/uL (0.90-5.00); Monocytes # (M) 0.85 X 10*3/uL (0.20-1.00); Myelocytes % 1 % (0-0); Neutrophils # (M) 4.73 X 10*3/uL (2.00-8.90); Neutrophils % (M) 67 %
[2020-12-13 11:37] VITALS: PULSE 72
--- NOTE | 2020-12-13 12:01 | P.PN ---
Subjective Progress Note Date: 12/13/20 80-year-old female patient known history of COPD was been steroid dependent for many years follow-up through our office on the the care of Dr. Sarabia. The patient also utilizes Symbicort as maintenance in addition to DuoNeb nebulized treatments [id number]. The hospital approximately 3 weeks ago where she can for shortness of breath after quitting her steroids. Note that the patient remains on prednisone for years she was investigated with the medication as well as being treated for a H. pylori the stomach infection. According that she became more short of breath. She had a brief hospitalization which was given systemic steroids and she was optimized and she was discharged home. She came in for a similar problem worsening shortness of breath and pain across the lateral part of the chest posteriorly and laterally above the flank. The pain is around 8 out of 10 in severity, very much reproducible upon palpating the involved area. She states that she was coughing for the past 3-4 days. No hemoptysis. No pleurisy.. Unable to see her operating room specialist and based on that she end up coming to the emergency. Chest x-ray was consistent with COPD. Cardiac enzymes were negative. BNP level was nonelevated. COVID 19 testing was negative. Note the time of her discharge from the hospital 3 weeks ago, the patient was given prednisone burst taper, she was asked to complete a course of tetracycline and metronidazole for H. pylori. She was admitted on Symbicort and albuterol nebulized treatments on a daily basis regarding her COPD. Currently she has no fever. No chills. Cardiac enzymes are negative. Electrodes are all within normal limits. D-dimer level is low. The patient is seen today 12/10/2020 and follow-up on the regular medical floor. She is currently sitting up at the bedside. Awake and alert in no acute distress. Breathing a bit easier today compared to yesterday. Still dyspneic with minimal exertion. She is maintaining O2 saturations in the mid 90s on 3 L/m per nasal cannula. Afebrile. Hemodynamically stable. Remains on Symbicort, DuoNeb inhalations, IV Solu-Medrol. Her main complaint today as left lower back pain. Lidoderm patch in place. CT angiogram revealed no evidence of acute pulmonary embolism. There is some mild progressive thickening of the pleural margin the right apex. Extensive emphysematous changes. EKG reveals normal sinus rhythm without any acute ST or T wave abnormalities. 12/11/2020, the patient feels well and she has no new complaints. No chest pain. She has adequate air entry bilaterally and there is no significant wheezing. She remains hemodynamically stable. She is on Symbicort, DuoNeb nebulized treatments around the clock and she is also on IV Solu-Medrol. Her back pain is still there and the patient was offered a lidocaine patch. CAT scan of the chest showed no evidence of any pulmonary embolism and there were some chronic changes with emphysema. Her cardiac rhythm is atrial fibrillation/flutter with a controlled rate for now. The patient went into atrial fibrillation earlier this morning at around 7:00. She is currently on IV heparin. Rate is controlled for now. She was also started on Cardizem drip at 5 mg L an hour and currently is drip is running at 10 mg/hour. No vomiting. No abdominal pain. No chest pain. No palpitation. No syncope. Tolerating her diet. 60,021 the patient is feeling well. Her COPD stable. She was in atrial fibrillation with rapid ventricular response and A. fib converted and she is back to normal sinus rhythm this morning. She was taken off IV heparin. She was taken off the IV Cardizem. She was started on Eliquis. Hemoglobin was 13 and dropped down to 11.8. We are suspecting a GI bleed. Stool for occult blood will be sent for now. Cardiology is on the case. No other issues for now. She is resting comfortably in bed and she is able to tolerate her diet. No nausea. No vomiting. No emesis. She has H pylori for which he received treatment 12/13/2020, the patient is feeling well. She converted back to normal sinus rhythm. His COPD stable. The plan is to discharge this patient home today. No cough. No sputum production. No chest that has been no wheezing. No evidence of any GI bleed and hemoglobin is at 12 which is stable and the patient did not show any melanotic stools. As such, the coagulation was continued. Objective - Vital Signs Vital signs: Vital Signs Temp 98.2 F 12/13/20 07:02 Pulse 72 12/13/20 11:17 Resp 20 12/13/20 07:02 BP 154/69 12/13/20 07:02 Pulse Ox 95 12/13/20 07:02 Intake & Output 12/12/20 12/13/20 12/13/20 18:59 06:59 18:59 Intake Total 340 180 Balance 340 180 Intake: Oral 340 180 Other: Voiding Method Toilet Toilet # Voids 1 3 # Bowel Movements 1 1 - Exam GENERAL EXAM: Alert, active, pleasant 80-year-old female patient, comfortable in no apparent distress. On 3 L nasal cannula Head exam was generally normal. There was no scleral icterus or corneal arcus. Mucous membranes were moist. EYES: Normal reaction of pupils, equal size. NOSE: Clear with pink turbinates. THROAT: No erythema or exudates. Neck was supple and without jugular venous distension, thyromegaly, or carotid bruits. Carotids were easily palpable bilaterally. There was no adenopathy. CHEST: No chest wall deformity. LUNGS: Equal air entry with faint expiratory wheeze, diminished. CVS: S1 and S2 normal with no audible murmur, regular rhythm. ABDOMEN: No hepatosplenomegaly, normal bowel sounds, no guarding or rigidity. SPINE: No scoliosis or deformity SKIN: No rashes CENTRAL NERVOUS SYSTEM: No focal deficits, tone is normal in all 4 extremities. EXTREMITIES: Cast to the left wrist. There is no peripheral edema. No clubbing, no cyanosis. Peripheral pulses are intact. - Labs CBC & Chem 7: 12/13/20 05:48 12/10/20 10:19 Labs: Abnormal Lab Results - Last 24 Hours (Table) 12/12/20 12/13/20 Range/Units 07:06 05:48 Hgb 11.8 L (12.0-15.0) g/dL MCH 26.9 L 26.8 L (27.0-32.0) pg MCHC 30.8 L 31.1 L (32.0-37.0) g/dL RDW 17.2 H 17.0 H (11.5-14.5) % Myelocytes % 1 H (0-0) % Immature Gran # 0.27 H (0.00-0.04) X 10*3/uL Eosinophils # 0.01 L (0.04-0.35) X 10*3/uL Assessment and Plan Plan: 1 COPD with chronic dyspnea currently inactive in stable 2 advanced COPD with upper lobe changes/bullous changes and the patient has been treated for extensive pneumonias in the past, none for now 3 chronic hypoxic respiratory failure secondary to COPD 4 vague right upper lobe opacity being followed up in our office and the patient a CAT scan of the chest that was done on 09/28/2020 followed by a PET scan that was done on 10/18/2020 showing no evidence of any significant metabolic activity in the right upper lobe. As such, no clear indication of an underlying malignancy. 5 history of smoking 6 hypertension 7 hyperlipidemia 8 H. pylori being treated on outpatient basis with a combination of doxycycline and Flagyl. 9 A. fib/flutter, with a preserved LV function and ejection fraction of 55-60%. converted to normal sinus rhythm 10 questionable GI bleed Plan DuoNeb nebulized treatments around the clock prednisone burst taper to go to a maintenance of 10 mg as usual Continue oral Cardizem Eliquis for long-term anticoagulation, and there are no signs of any GI bleeding Discharge home today
[2020-12-13] MEDS: LIDOCAINE 5% PATCH TOPICAL SCH (12:26)
--- NOTE | 2020-12-13 22:57 | P.DS ---
Providers Date of admission: 12/09/20 13:58 Expected date of discharge: 12/13/20 Attending physician: Gilberto Devi Consults: 12/08/20 19:15 Consult Physician Routine Consulting Provider: Gianluca Sarabia Consult Reason/Comments: dyspnea Do you want consulting provider notified?: Yes 12/12/20 12:19 Consult Physician Routine Consulting Provider: Francisco Beard Consult Reason/Comments: black stool Do you want consulting provider notified?: Yes Primary care physician: Neptali Ariza [facility] Course: History of presenting complaint: This is a pleasant 80-year-old patient of Dr. 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 Chronic stable medical conditions include hyperlipidemia, hypertension, osteoarthritis, diverticulosis, home oxygen 2 L. positive for H. pylori. Recently the hospital for COPD exacerbation. Now presents for shortness of breath. For about a week. Not so much at rest as much with exertion. For example walk to the bathroom. Some orthopnea. No fever no chills. Patient went into atrial fibrillation with rapid ventricular rate. Put on a Cardizem drip. Did report an episode of dark stool. Patient been back in sinus rhythm.. Today-patient with distress of a brown stool. Breathing stable. Remains in sinus rhythm. Discussed with the nurse. Discussed with the patient. Told keep a close eye on her stools every day. Eliquis resumed. Discussion and discharge planning more than 35 minutes Consultation: Dr. Barragan from pulmonary Dr. Marino from cardiology Past medical history to include: COPD, hyperlipidemia, hypertension, osteoarthritis, pneumonia, diverticulosis, home oxygen 2 L, left arm fracture, GERD, H. pylori, diverticulitis, urinary incontinence Social history: Lives alone. Smoked for about 39 years stopped in 1997. Smoked less than a pack a day. No alcohol. Physical examination: VITAL SIGNS: 98.2, 76, 20, 154.69, 95% on 2 L GENERAL: Sitting up in a chair, comfortable EYES: Pupils equal. Conjunctiva normal. HEENT: External appearance of nose and ears normal, oral cavity grossly normal. NECK: JVD not raised; masses not palpable. HEART: First and second heart sounds are normal; no edema. LUNGS: Respiratory rate normal, decreased breath sounds. ABDOMEN: Soft, nontender, liver spleen not palpable, no masses palpable. PSYCH: Alert and oriented x3; mood and affect anxious - INVESTIGATIONS, reviewed in the clinical context: December 13: Hemoglobin 12 December 12: White count 7.6 hemoglobin 11.8 platelets 361 White count 8.7 hemoglobin 13.1 creatinine 0.6 Telemetry-atrial fibrillation with a rapid ventricular rate 2-D echocardiogram-EF 55-60%. I moderate mitral regurgitation. Assessment and plan: -Acute COPD exacerbation in an ex-smoker on nebulized bronchodilators, Symbicort, IV Zxgb-Owyein-tev discontinued. Stabilized -Paroxysmal atrial fibrillation with a rapid ventricular rate. On IV Cardizem. Toprol-XL. eliquis. Back into sinus rhythm -Questionable GI bleed. Dark stool. Per patient. Per the nurse patient has brown stool. Patient told to keep a close eye on her stools daily. -GERD on Protonix -H pylori continue with Flagyl and Protonix -Essential hypertension, continue hydrochlorothiazide Toprol-XL -Primary osteoarthritis, use Tylenol when necessary -Colonic diverticulosis , asymptomatic -chronic hypoxic respiratory failure on home oxygen 2 L Disposition: Home Labs: CBC, BMP 3 days Patient Condition at Discharge: Fair Plan - Discharge Summary New Discharge Prescriptions: New Apixaban [Eliquis] 5 mg PO BID #60 tab Diltiazem Oral [Cardizem*] 30 mg PO TID #90 tab Continue Budesonide-Formot 160-4.5 Mcg [Symbicort 160-4.5 Mcg Inhaler] 2 puff INHALATION RT-BID hydroCHLOROthiazide [Hydrodiuril] 25 mg PO DIRECTED Albuterol Sulfate [Proair Hfa] 1 - 2 puff INHALATION RT-Q6H PRN PRN Reason: Shortness Of Breath Ipratropium-Albuterol Nebulize [Duoneb 0.5 mg-3 mg/3 ml Soln] 3 ml INHALATION RT-QID predniSONE 10 mg PO DAILY Pantoprazole Sodium [Protonix] 40 mg PO DAILY Cholecalciferol [Vitamin D3 (25 Mcg = 1000 Iu)] 25 mcg PO DAILY ALPRAZolam [Xanax] 0.25 mg PO DAILY PRN PRN Reason: Anxiety Mupirocin 2% Oint [Bactroban 2% Oint] 1 applic EA NOSTRIL TID Changed Metoprolol Succinate [Toprol XL] 25 mg PO DAILY #30 tab Discontinued amLODIPine [Norvasc] 10 mg PO DAILY Discharge Medication List Budesonide-Formot 160-4.5 Mcg [Symbicort 160-4.5 Mcg Inhaler] 2 puff INHALATION RT-BID 02/09/18 [History] hydroCHLOROthiazide [Hydrodiuril] 25 mg PO DIRECTED 06/04/19 [History] Albuterol Sulfate [Proair Hfa] 1 - 2 puff INHALATION RT-Q6H PRN 09/28/20 [His tory] Ipratropium-Albuterol Nebulize [Duoneb 0.5 mg-3 mg/3 ml Soln] 3 ml INHALATION RT-QID 09/28/20 [History] Cholecalciferol [Vitamin D3 (25 Mcg = 1000 Iu)] 25 mcg PO DAILY 11/19/20 [History] Pantoprazole Sodium [Protonix] 40 mg PO DAILY 11/19/20 [History] predniSONE 10 mg PO DAILY 11/19/20 [History] ALPRAZolam [Xanax] 0.25 mg PO DAILY PRN 12/08/20 [History] Mupirocin 2% Oint [Bactroban 2% Oint] 1 applic EA NOSTRIL TID 12/08/20 [History] Apixaban [Eliquis] 5 mg PO BID #60 tab 12/11/20 [Rx] Diltiazem Oral [Cardizem*] 30 mg PO TID #90 tab 12/13/20 [Rx] Metoprolol Succinate [Toprol XL] 25 mg PO DAILY #30 tab 12/13/20 [Rx] Follow up Appointment(s)/Referral(s): Savage Neff MD [STAFF PHYSICIAN] - 1 Week [facility], [NON-STAFF] - 1-2 Days Neptali Ariza DO [Primary Care Provider] - 1-2 days Patient Instructions/Handouts: A-fib (Atrial Fibrillation) (DC) Activity/Diet/Wound Care/Special Instructions: heating pad - prn Discharge/Stand Alone Forms: Who Do I Call?, Help In The Home
== END 2020-12-13 14:09 | disposition home or self-care (01) | DRG 190 ==
LOC: EC 17:37 → 6NMEDSUR 19:16 → OBSVTOIN 12-09 13:58
PROVIDERS: ADMIT Hospitalist; ATTEND Hospitalist
DX: J43.9 Emphysema, unspecified (principal); J96.21 Acute and chronic respiratory failure with hypoxia; I48.92 Unspecified atrial flutter; K92.2 Gastrointestinal hemorrhage, unspecified; Z79.51 Long term (current) use of inhaled steroids; Z79.52 Long term (current) use of systemic steroids; Z20.822 Contact with and (suspected) exposure to COVID-19; K21.9 Gastro-esophageal reflux disease without esophagitis; E78.5 Hyperlipidemia, unspecified; M19.91 Primary osteoarthritis, unspecified site; Z87.01 Personal history of pneumonia (recurrent); Z99.81 Dependence on supplemental oxygen; G89.29 Other chronic pain; Z96.642 Presence of left artificial hip joint; F41.9 Anxiety disorder, unspecified; Z82.49 Family history of ischemic heart disease and other diseases of the circulatory system; Z80.1 Family history of malignant neoplasm of trachea, bronchus and lung; K57.30 Diverticulosis of large intestine without perforation or abscess without bleeding; Z87.891 Personal history of nicotine dependence; B96.81 Helicobacter pylori [H. pylori] as the cause of diseases classified elsewhere; Z86.19 Personal history of other infectious and parasitic diseases; I25.10 Atherosclerotic heart disease of native coronary artery without angina pectoris; M54.5 Low back pain; R07.89 Other chest pain; I48.0 Paroxysmal atrial fibrillation; I10 Essential (primary) hypertension
CPT/HCPCS: 36415; 71045; 71275; 80048; 80053; 81003; 82272; 83735; 83880; 84484; 85025; 85379; 85610; 85730; 87635; 93005; 93306; 94640

== ENCOUNTER 2020-12-20 03:14 | Inpatient (IN) | payer MEDICARE ==
[2020-12-20 04:08] LABS: Anisocytosis Slight; Basophils # (A) 0.1 k/uL (0-0.2); Basophils % (A) 1 %; Eosinophils # (A) 0.1 k/uL (0-0.7); Eosinophils % (A) 1 %; HCT 40.1 % (34.0-46.0); HGB 13.3 gm/dL (11.4-16.0); Lymphocytes # (A) 0.6 k/uL (1.0-4.8); Lymphocytes % (A) 6 %; MCH 27.8 pg (25.0-35.0); MCV 84.1 fL (80.0-100.0); Mean Platelet Volume 7.8; Monocytes # (A) 0.6 k/uL (0-1.0); Monocytes % (A) 6 %; Neutrophils # (A) 8.5 k/uL (1.3-7.7); Neutrophils % (A) 85 %; Platelet Count 275 k/uL (150-450); RBC 4.77 m/uL (3.80-5.40); RDW 17.4 % (11.5-15.5)
[2020-12-20 04:19] LABS: ALT 29 U/L (4-34); AST 30 U/L (14-36); African American GFR (CKD) >90 (>60 ml/min/1.73 sqM); Albumin 3.9 g/dL (3.5-5.0); Alkaline Phosphatase 72 U/L (38-126); Anion Gap 10 mmol/L; Blood Urea Nitrogen 18 mg/dL (7-17); Calcium 9.1 mg/dL (8.4-10.2); Carbon Dioxide 26 mmol/L (22-30); Chloride 99 mmol/L (98-107); Glucose 114 mg/dL (74-99); Non-African American GFR(CKD) 84 (>60 ml/min/1.73 sqM); Potassium 3.2 mmol/L (3.5-5.1); Sodium 135 mmol/L (137-145); Total Bilirubin 0.7 mg/dL (0.2-1.3); Total Protein 6.4 g/dL (6.3-8.2)
[2020-12-20 04:20] LABS: Partial Thromboplastin Time 22.1 sec (22.0-30.0); Prothrombin Time 10.6 sec (9.0-12.0)
--- NOTE | 2020-12-20 04:26 | ED ---
SOB HPI - General Chief Complaint: Shortness of Breath Stated Complaint: Fever, ELIAS Time Seen by Provider: 12/20/20 03:34 Source: patient Mode of arrival: wheelchair Limitations: no limitations - History of Present Illness MD Complaint: shortness of breath, cough, chest pain -: hour(s) Quality: aching Consistency: constant Improves With: nothing Worsens With: coughing Known History Of: COPD Associated Symptoms: fever, cough - Related Data Home Medications Medication Instructions Recorded Confirmed Budesonide-Formot 160-4.5 Mcg 2 puff INHALATION RT-BID 02/09/18 12/20/20 [Symbicort 160-4.5 Mcg Inhaler] Albuterol Sulfate [Proair Hfa] 2 puff INHALATION RT-Q6H PRN 09/28/20 12/20/20 Ipratropium-Albuterol Nebulize 3 ml INHALATION RT-QID 09/28/20 12/20/20 [Duoneb 0.5 mg-3 mg/3 ml Soln] Cholecalciferol [Vitamin D3 (25 25 mcg PO DAILY 11/19/20 12/20/20 Mcg = 1000 Iu)] Pantoprazole Sodium [Protonix] 40 mg PO DAILY 11/19/20 12/20/20 ALPRAZolam [Xanax] 0.25 mg PO DAILY PRN 12/08/20 12/20/20 Diltiazem Oral [Cardizem*] 30 mg PO TID 12/20/20 12/20/20 Multivitamins, Thera [Multivitamin 1 tab PO DAILY 12/20/20 12/20/20 (formulary)] Previous Rx's Medication Instructions Recorded Apixaban [Eliquis] 5 mg PO BID #60 tab 12/11/20 Metoprolol Succinate [Toprol XL] 25 mg PO DAILY #30 tab 12/13/20 Ascorbic Acid [Vitamin C] 1,000 mg PO DAILY #30 tab 12/21/20 Zinc Sulfate [Orazinc] 220 mg PO DAILY #30 cap 12/21/20 predniSONE 0 mg PO DIRECTED #10 tab 12/21/20 Allergies Allergy/AdvReac Type Severity Reaction Status Date / Time amoxicillin [From Augmentin] Allergy Unknown Verified 12/20/20 09:14 clavulanic acid Allergy Unknown Verified 12/20/20 09:14 [From Augmentin] levofloxacin [From Levaquin] Allergy Unknown Verified 12/20/20 09:14 moxifloxacin HCl Allergy Rash/Hives, Verified 12/20/20 09:14 [From Avelox] SWELLING nitrofurantoin Allergy Rash/Hives Verified 12/20/20 09:14 hydrocodone bitartrate AdvReac Nausea & Verified 12/20/20 09:14 [From Lortab] Vomiting losartan AdvReac Cough Verified 12/20/20 09:14 simvastatin AdvReac muscle pain Verified 12/20/20 09:14 Cylmsio-Wfr-Rob Reductase AdvReac MUSCLE PAIN Verified 12/20/20 09:14 Inhibitor Review of Systems ROS Statement: Those systems with pertinent positive or pertinent negative responses have been documented in the HPI. ROS Other: All systems not noted in ROS Statement are negative. Constitutional: Reports: fever, chills Eyes: Denies: vision change ENT: Denies: throat pain Respiratory: Reports: cough, dyspnea, wheezes. Denies: hemoptysis Cardiovascular: Reports: chest pain. Denies: palpitations, orthopnea, edema, syncope Gastrointestinal: Denies: abdominal pain, nausea, vomiting, diarrhea Genitourinary: Denies: dysuria, hematuria Musculoskeletal: Reports: myalgia Skin: Denies: rash Neurological: Reports: headache. Denies: weakness, numbness Past Medical History Past Medical History: Asthma, COPD, GERD/Reflux, GI Bleed, Hyperlipidemia, Hypertension, Osteoarthritis (OA), Respiratory Disorder Additional Past Medical History / Comment(s): Pt currently being treated for H Pylori, COPD with bullous changes in the upper lobes bilaterally, chronic hypoxic respiratory failure, home oxygen at 2L/min, lower GI bleeding past, chronic low back pain-much improved since hip replaced, herniated lumbar discs, arthritis in multiple joints, diverticulosis/ diverticulitis, urinary leakage, UTI History of Any Multi-Drug Resistant Organisms: ESBL Date of last positivie culture/infection: 10/06/20 ESBL E.coli MDRO Source:: Urine Past Surgical History: Appendectomy, Bowel Resection, Cholecystectomy, Heart Catheterization, Joint Replacement, Orthopedic Surgery, Tubal Ligation Additional Past Surgical History / Comment(s): Bronchoscopies/lavages, bowel resection due to diverticulitis 2012, bilat knee arthroscopy, sinus surgery twice, carpal tunnel left wrist, EGD, colonoscopies/polypectomies, back injections, left wrist fracture with pins placed 12-07-2018 and since removed, left hip replaced 2018 Past Anesthesia/Blood Transfusion Reactions: No Reported Reaction Additional Past Anesthesia/Blood Transfusion Reaction / Comment(s): has never received blood Past Psychological History: Anxiety Smoking Status: Former smoker Past Alcohol Use History: None Reported Past Drug Use History: None Reported - Past Family History Mother Family Medical History: Myocardial Infarction (DE) Additional Family Medical History / Comment(s): Mother of [place] at age 65 yrs. Sister(s) Family Medical History: Cancer Additional Family Medical History / Comment(s): Twin sister had LUNG cancer. Father Family Medical History: Cancer Additional Family Medical History / Comment(s): Father had cancer in his neck. General Exam Limitations: no limitations General appearance: alert, in no apparent distress Head exam: Present: atraumatic, normocephalic Eye exam: Present: normal appearance. Absent: scleral icterus, conjunctival injection Neck exam: Present: normal inspection, full ROM. Absent: meningismus Respiratory exam: Present: wheezes. Absent: respiratory distress, rales, rhonchi, stridor Cardiovascular Exam: Present: regular rate, normal rhythm, normal heart sounds. Absent: systolic murmur, diastolic murmur, rubs, gallop GI/Abdominal exam: Present: soft. Absent: distended, tenderness, guarding, rebound, rigid, mass Extremities exam: Present: normal inspection, normal capillary refill. Absent: pedal edema, calf tenderness Back exam: Present: normal inspection. Absent: CVA tenderness (R), CVA tenderness (L) Neurological exam: Present: alert Skin exam: Present: warm, dry, intact, normal color. Absent: rash Course Vital Signs 12/20/20 12/20/20 12/20/20 03:19 03:50 04:21 Temperature 98.9 F Pulse Rate 100 84 Respiratory 28 H 25 H 16 Rate Blood Pressure 95/57 115/64 O2 Sat by Pulse 95 95 Oximetry 12/20/20 06:21 Temperature Pulse Rate 80 Respiratory 20 Rate Blood Pressure 140/95 O2 Sat by Pulse 94 L Oximetry Medical Decision Making - Lab Data Result diagrams: 12/20/20 03:46 12/20/20 03:46 Lab Results 12/20/20 12/20/20 12/20/20 Range/Units 03:20 03:46 03:46 WBC 10.0 (3.8-10.6) k/uL RBC 4.77 (3.80-5.40) m/uL Hgb 13.3 (11.4-16.0) gm/dL Hct 40.1 (34.0-46.0) % MCV 84.1 (80.0-100.0) fL MCH 27.8 (25.0-35.0) pg MCHC 33.0 (31.0-37.0) g/dL RDW 17.4 H (11.5-15.5) % Plt Count 275 (150-450) k/uL MPV 7.8 Neutrophils % 85 % Lymphocytes % 6 % Monocytes % 6 % Eosinophils % 1 % Basophils % 1 % Neutrophils # 8.5 H (1.3-7.7) k/uL Lymphocytes # 0.6 L (1.0-4.8) k/uL Monocytes # 0.6 (0-1.0) k/uL Eosinophils # 0.1 (0-0.7) k/uL Basophils # 0.1 (0-0.2) k/uL Anisocytosis Slight PT 10.6 (9.0-12.0) sec INR 1.0 (<1.2) APTT 22.1 (22.0-30.0) sec VBG pH 7.46 H (7.31-7.41) VBG pCO2 37 (37-51) mmHg VBG HCO3 26 (24-28) mmol/L Sodium (137-145) mmol/L Potassium (3.5-5.1) mmol/L Chloride (98-107) mmol/L Carbon Dioxide (22-30) mmol/L Anion Gap mmol/L BUN (7-17) mg/dL Creatinine (0.52-1.04) mg/dL Est GFR (CKD-EPI)AfAm (>60 ml/min/1.73 sqM) Est GFR (CKD-EPI)NonAf (>60 ml/min/1.73 sqM) Glucose (74-99) mg/dL Lactic Ac Sepsis Rflx Plasma Lactic Acid Carlos (0.7-2.0) mmol/L Calcium (8.4-10.2) mg/dL Total Bilirubin (0.2-1.3) mg/dL AST (14-36) U/L ALT (4-34) U/L Alkaline Phosphatase (38-126) U/L Troponin I (0.000-0.034) ng/mL NT-Pro-B Natriuret Pep pg/mL Total Protein (6.3-8.2) g/dL Albumin (3.5-5.0) g/dL Coronavirus (PCR) (Not Detectd) 12/20/20 12/20/20 12/20/20 Range/Units 03:46 03:46 03:46 WBC (3.8-10.6) k/uL RBC (3.80-5.40) m/uL Hgb (11.4-16.0) gm/dL Hct (34.0-46.0) % MCV (80.0-100.0) fL MCH (25.0-35.0) pg MCHC (31.0-37.0) g/dL RDW (11.5-15.5) % Plt Count (150-450) k/uL MPV Neutrophils % % Lymphocytes % % Monocytes % % Eosinophils % % Basophils % % Neutrophils # (1.3-7.7) k/uL Lymphocytes # (1.0-4.8) k/uL Monocytes # (0-1.0) k/uL Eosinophils # (0-0.7) k/uL Basophils # (0-0.2) k/uL Anisocytosis PT (9.0-12.0) sec INR (<1.2) APTT (22.0-30.0) sec VBG pH (7.31-7.41) VBG pCO2 (37-51) mmHg VBG HCO3 (24-28) mmol/L Sodium 135 L (137-145) mmol/L Potassium 3.2 L (3.5-5.1) mmol/L Chloride 99 (98-107) mmol/L Carbon Dioxide 26 (22-30) mmol/L Anion Gap 10 mmol/L BUN 18 H (7-17) mg/dL Creatinine 0.68 (0.52-1.04) mg/dL Est GFR (CKD-EPI)AfAm >90 (>60 ml/min/1.73 sqM) Est GFR (CKD-EPI)NonAf 84 (>60 ml/min/1.73 sqM) Glucose 114 H (74-99) mg/dL Lactic Ac Sepsis Rflx Plasma Lactic Acid Carlos 2.5 H* (0.7-2.0) mmol/L Calcium 9.1 (8.4-10.2) mg/dL Total Bilirubin 0.7 (0.2-1.3) mg/dL AST 30 (14-36) U/L ALT 29 (4-34) U/L Alkaline Phosphatase 72 (38-126) U/L Troponin I <0.012 (0.000-0.034) ng/mL NT-Pro-B Natriuret Pep pg/mL Total Protein 6.4 (6.3-8.2) g/dL Albumin 3.9 (3.5-5.0) g/dL Coronavirus (PCR) (Not Detectd) 12/20/20 12/20/20 12/20/20 Range/Units 03:46 03:46 04:22 WBC (3.8-10.6) k/uL RBC (3.80-5.40) m/uL Hgb (11.4-16.0) gm/dL Hct (34.0-46.0) % MCV (80.0-100.0) fL MCH (25.0-35.0) pg MCHC (31.0-37.0) g/dL RDW (11.5-15.5) % Plt Count (150-450) k/uL MPV Neutrophils % % Lymphocytes % % Monocytes % % Eosinophils % % Basophils % % Neutrophils # (1.3-7.7) k/uL Lymphocytes # (1.0-4.8) k/uL Monocytes # (0-1.0) k/uL Eosinophils # (0-0.7) k/uL Basophils # (0-0.2) k/uL Anisocytosis PT (9.0-12.0) sec INR (<1.2) APTT (22.0-30.0) sec VBG pH (7.31-7.41) VBG pCO2 (37-51) mmHg VBG HCO3 (24-28) mmol/L Sodium (137-145) mmol/L Potassium (3.5-5.1) mmol/L Chloride (98-107) mmol/L Carbon Dioxide (22-30) mmol/L Anion Gap mmol/L BUN (7-17) mg/dL Creatinine (0.52-1.04) mg/dL Est GFR (CKD-EPI)AfAm (>60 ml/min/1.73 sqM) Est GFR (CKD-EPI)NonAf (>60 ml/min/1.73 sqM) Glucose (74-99) mg/dL Lactic Ac Sepsis Rflx Y Plasma Lactic Acid Carlos (0.7-2.0) mmol/L Calcium (8.4-10.2) mg/dL Total Bilirubin (0.2-1.3) mg/dL AST (14-36) U/L ALT (4-34) U/L Alkaline Phosphatase (38-126) U/L Troponin I (0.000-0.034) ng/mL NT-Pro-B Natriuret Pep 216 pg/mL Total Protein (6.3-8.2) g/dL Albumin (3.5-5.0) g/dL Coronavirus (PCR) Detected A (Not Detectd) - EKG Data -: EKG Interpreted by Me EKG shows normal: sinus rhythm (With PVC), axis (Normal), intervals (Normal), QRS complexes (Normal), ST-T waves (Normal) Rate: tachycardia (Rate 102 BPM) Disposition Clinical Impression: COVID-19, COPD exacerbation Disposition: ADMITTED IP TO THIS HOSP Condition: Good Is patient prescribed a controlled substance at d/c from ED?: No
[2020-12-20 04:27] LABS: VBG PH 7.46 (7.31-7.41)
--- NOTE | 2020-12-20 04:28 | XR ---
EXAM: XR Chest, 1 View CLINICAL HISTORY: Dyspnea. TECHNIQUE: Frontal view of the chest. COMPARISON: 02/16/2020. FINDINGS: Lungs: Probable subsegmental atelectasis at the lung bases. Mild COPD. Pleural space: Unremarkable. No pneumothorax. Heart: Heart is top normal in size. Mediastinum: Unremarkable. Bones/joints: Osteopenia. Vasculature: Atherosclerotic disease of the aortic knob. Other findings: Presumed scarring at the right apex, unchanged. IMPRESSION: 1. Mild COPD. 2. Scarring at the right apex, unchanged. 3. Osteopenia appeared 4. Subsegmental atelectasis at the lung bases appeared 5. Atherosclerotic disease.
[2020-12-20] MEDS ORDERED: SODIUM CHLORIDE 0.9% 1,000 ML IV STA (05:32)
[2020-12-20] MEDS ORDERED: SODIUM CHLORIDE 0.9% 1,000 ML IV ONE (05:32)
[2020-12-20] MEDS ORDERED: methylPREDNISolone SOD SUCCI 125 MG/2 ML VIAL IV STA (05:39)
[2020-12-20] MEDS ORDERED: AZITHROMYCIN 500 MG TAB PO STA (05:41)
[2020-12-20] MEDS ORDERED: SODIUM CHLORIDE 0.9% 500 ML 100 ML IV STA (05:42)
[2020-12-20] MEDS: methylPREDNISolone SOD SUCCI 125 MG/2 ML VIAL IV SCH ×2 (05:59→12:08)
[2020-12-20] MEDS: ALBUTEROL HFA INHALER INHALATION SCH ×4 (07:29→21:03)
[2020-12-20] MEDS ORDERED: IPRATROPIUM-ALBUTEROL 3 ML NEB INHALATION SCH (08:00)
[2020-12-20] MEDS: TIOTROPIUM 2.5 MCG INHALER INHALATION SCH (11:10)
[2020-12-20] MEDS ORDERED: ALPRAZolam 0.25 MG TAB PO PRN (12:23)
[2020-12-20] MEDS: SYMBICORT 160-4.5 MCG INHALER INHALATION SCH ×2 (12:38→21:03)
[2020-12-20] MEDS: APIXABAN 5 MG TAB PO SCH ×2 (14:04→21:54)
[2020-12-20] MEDS: METOPROLOL SUCCINATE (ER) 25 MG TAB.ER.24H PO SCH (14:04)
[2020-12-20] MEDS: ZINC SULFATE 220 MG CAP PO SCH (14:04)
[2020-12-20] MEDS: MULTIVITAMINS, THERA 1 EACH TAB PO SCH (14:05)
[2020-12-20] MEDS: ASCORBIC ACID 500 MG TAB PO SCH (14:05)
[2020-12-20] MEDS: PANTOPRAZOLE 40 MG TABLET PO SCH (14:05)
[2020-12-20] MEDS: CHOLECALCIFEROL 25 MCG (1000 IU) TABLET PO SCH (14:05)
[2020-12-20] MEDS: methylPREDNISolone SOD SUCCI 40 MG/ML 1 ML VIAL IV SCH (16:44)
[2020-12-20] MEDS: DILTIAZEM ORAL 30 MG TAB PO SCH ×3 (16:45→21:54)
--- NOTE | 2020-12-20 20:39 | P.HPIM ---
History of Present Illness H&P Date: 12/20/20 Chief Complaint: Fever History of presenting complaint: This is a pleasant 80-year-old patient of Dr. Ariza.real estate investment analyst is Dr. Sarabia. Chronic stable medical conditions include hyperlipidemia, hypertension, osteoarthritis, diverticulosis, home oxygen 2 L. positive for H. pylori. Paroxysmal atrial fibrillation. He recently in the hospital for COPD exacerbation. Patient now presented 1 day of fever. Skeletal cough some chills. Congested chest. Some yellow sputum. Appetite is okay. No loss of taste or smell. Bowel movements are okay. Patient tested positive for COVID 19. Review of systems: GEN.: Tired, fever EYES: None HEENT: None NECK: None RESPIRATORY: Shortness of breath, congested chest CARDIOVASCULAR: None GASTROINTESTINAL: None GENITOURINARY: None MUSCULOSKELETAL: None LYMPHATICS: None HEMATOLOGICAL: None PSYCHIATRY: None NEUROLOGICAL: None Past medical history to include: COPD, hyperlipidemia, hypertension, osteoarthritis, pneumonia, diverticulosis, home oxygen 2 L, left arm fracture, GERD, H. pylori, diverticulitis, urinary incontinence , possibly atrial fibrillation Social history: Lives alone. Smoked for about 39 years stopped in 1997. Smoked less than a pack a day. No alcohol. Physical examination: VITAL SIGNS: 98.9, 100, 28, 95/57, 95% on 2 L GENERAL: BMI 24.4, sitting on edge of bed, not in distress. EYES: Pupils equal. Conjunctiva normal. HEENT: External appearance of nose and ears normal, oral cavity grossly normal. NECK: JVD not raised; masses not palpable. HEART: First and second heart sounds are normal; no edema. LUNGS: Respiratory rate increased, diminished breath sounds. ABDOMEN: Soft, nontender, liver spleen not palpable, no masses palpable. PSYCH: Alert and oriented x3; mood and affect normal. NEUROLOGICAL: Cranial nerves grossly intact; no facial asymmetry, power and sensation grossly intact. LYMPHATICS: No lymph nodes palpable in the axilla and neck - INVESTIGATIONS, reviewed in the clinical context: WBC 10 hemoglobin 13.3 lymphocytes 0.6 potassium 3.2 creatinine 0.68 D-dimer 0.34 CRP 73 Coronavirus [PCR]-detected EKG tracing personally reviewed by me-normal sinus rhythm Chest x-ray film personally reviewed by me-possible basilar infiltrate Assessment and plan: -COVID 19 pneumonitis. Patient free steroids orally on eliquis, vitamin C vitamin D zinc -Acute COPD exacerbation in an ex-smoker on nebulized bronchodilators, Symbicort, IV Solu-Medrol -Paroxysmal atrial fibrillation . Toprol-XL. eliquis. In sinus rhythm -GERD on Protonix -Essential hypertension, continue hydrochlorothiazide Toprol-XL -Primary osteoarthritis, use Tylenol when necessary -Colonic diverticulosis , asymptomatic -chronic hypoxic respiratory failure on home oxygen 2 L Care was discussed with the patient. Consultation to pulmonary and ID. Past Medical History Past Medical History: Asthma, COPD, GERD/Reflux, GI Bleed, Hyperlipidemia, Hypertension, Osteoarthritis (OA), Respiratory Disorder Additional Past Medical History / Comment(s): Pt currently being treated for H Pylori, COPD with bullous changes in the upper lobes bilaterally, chronic hypoxic respiratory failure, home oxygen at 2L/min, lower GI bleeding past, chronic low back pain-much improved since hip replaced, herniated lumbar discs, arthritis in multiple joints, diverticulosis/ diverticulitis, urinary leakage, UTI History of Any Multi-Drug Resistant Organisms: ESBL Date of last positivie culture/infection: 10/06/20 ESBL E.coli MDRO Source:: Urine Past Surgical History: Appendectomy, Bowel Resection, Cholecystectomy, Heart Catheterization, Joint Replacement, Orthopedic Surgery, Tubal Ligation Additional Past Surgical History / Comment(s): Bronchoscopies/lavages, bowel resection due to diverticulitis 2012, bilat knee arthroscopy, sinus surgery twice, carpal tunnel left wrist, EGD, colonoscopies/polypectomies, back inje ctions, left wrist fracture with pins placed 12-07-2018 and since removed, left hip replaced 2018 Past Anesthesia/Blood Transfusion Reactions: No Reported Reaction Additional Past Anesthesia/Blood Transfusion Reaction / Comment(s): has never received blood Past Psychological History: Anxiety Additional Psychological History / Comment(s): Pt lives alone. She is independent. She owns a walker and cane but does not need to use them. She drives. She has home 02 2 liters n/c mostly ATC and a concentrator. She has a nebulizer. Smoking Status: Former smoker Past Alcohol Use History: None Reported Additional Past Alcohol Use History / Comment(s): QUIT SMOKING 1997, STARTED AGE 18(1957) smoked <1ppd when she smoked Past Drug Use History: None Reported - Past Family History Mother Family Medical History: Myocardial Infarction (SD) Additional Family Medical History / Comment(s): Mother of SD at age 65 yrs. Sister(s) Family Medical History: Cancer Additional Family Medical History / Comment(s): Twin sister had LUNG cancer. Father Family Medical History: Cancer Additional Family Medical History / Comment(s): Father had cancer in his neck. Medications and Allergies Home Medications Medication Instructions Recorded Confirmed Type Budesonide-Formot 160-4.5 Mcg 2 puff INHALATION RT-BID 02/09/18 12/20/20 History [Symbicort 160-4.5 Mcg Inhaler] hydroCHLOROthiazide [Hydrodiuril] 25 mg PO DIRECTED 06/04/19 12/20/20 History Albuterol Sulfate [Proair Hfa] 2 puff INHALATION RT-Q6H PRN 09/28/20 12/20/20 History Ipratropium-Albuterol Nebulize 3 ml INHALATION RT-QID 09/28/20 12/20/20 History [Duoneb 0.5 mg-3 mg/3 ml Soln] Cholecalciferol [Vitamin D3 (25 25 mcg PO DAILY 11/19/20 12/20/20 History Mcg = 1000 Iu)] Pantoprazole Sodium [Protonix] 40 mg PO DAILY 11/19/20 12/20/20 History ALPRAZolam [Xanax] 0.25 mg PO DAILY PRN 12/08/20 12/20/20 History Apixaban [Eliquis] 5 mg PO BID #60 tab 12/11/20 12/20/20 Rx Metoprolol Succinate [Toprol XL] 25 mg PO DAILY #30 tab 12/13/20 12/20/20 Rx Diltiazem Oral [Cardizem*] 30 mg PO TID 12/20/20 12/20/20 History Multivitamins, Thera [Multivitamin 1 tab PO DAILY 12/20/20 12/20/20 History (formulary)] Allergies Allergy/AdvReac Type Severity Reaction Status Date / Time amoxicillin [From Augmentin] Allergy Unknown Verified 12/20/20 09:14 clavulanic acid Allergy Unknown Verified 12/20/20 09:14 [From Augmentin] levofloxacin [From Levaquin] Allergy Unknown Verified 12/20/20 09:14 moxifloxacin HCl Allergy Rash/Hives, Verified 12/20/20 09:14 [From Avelox] SWELLING nitrofurantoin Allergy Rash/Hives Verified 12/20/20 09:14 hydrocodone bitartrate AdvReac Nausea & Verified 12/20/20 09:14 [From Lortab] Vomiting losartan AdvReac Cough Verified 12/20/20 09:14 simvastatin AdvReac muscle pain Verified 12/20/20 09:14 Jgsoxch-Ghy-Aux Reductase AdvReac MUSCLE PAIN Verified 12/20/20 09:14 Inhibitor Physical Exam Vitals: Vital Signs Temp Pulse Pulse Resp BP BP Pulse Ox 12/20/20 10:00 98.3 F 86 19 152/68 94 L 12/20/20 08:00 86 19 12/20/20 07:29 95 12/20/20 07:20 98.0 F 81 19 131/64 94 L 12/20/20 06:21 80 20 140/95 94 L 12/20/20 04:21 84 16 115/64 95 12/20/20 03:50 25 H 12/20/20 03:19 98.9 F 100 28 H 95/57 95 Intake and Output 12/19/20 12/20/20 12/20/20 21:59 06:59 14:59 Other: Weight Results CBC & Chem 7: 12/20/20 03:46 12/20/20 03:46 Labs: Abnormal Lab Results - Last 24 Hours (Table) 12/20/20 12/20/20 12/20/20 Range/Units 03:20 03:46 03:46 RDW 17.4 H (11.5-15.5) % Neutrophils # 8.5 H (1.3-7.7) k/uL Lymphocytes # 0.6 L (1.0-4.8) k/uL VBG pH 7.46 H (7.31-7.41) Sodium 135 L (137-145) mmol/L Potassium 3.2 L (3.5-5.1) mmol/L BUN 18 H (7-17) mg/dL Glucose 114 H (74-99) mg/dL Plasma Lactic Acid Carlos (0.7-2.0) mmol/L Coronavirus (PCR) (Not Detectd) 12/20/20 12/20/20 Range/Units 03:46 03:46 RDW (11.5-15.5) % Neutrophils # (1.3-7.7) k/uL Lymphocytes # (1.0-4.8) k/uL VBG pH (7.31-7.41) Sodium (137-145) mmol/L Potassium (3.5-5.1) mmol/L BUN (7-17) mg/dL Glucose (74-99) mg/dL Plasma Lactic Acid Carlos 2.5 H* (0.7-2.0) mmol/L Coronavirus (PCR) Detected A (Not Detectd) Thrombosis Risk Factor Assmnt - Choose All That Apply Each Factor Represents 1 point: Abnormal pulmonary function (COPD), Serious lung disease incl. pneumonia (< 1month) Each Risk Factor Represents 3 Points: Age 75 years or older Thrombosis Risk Factor Assessment Total Risk Factor Score: 5 Thrombosis Risk Factor Assessment Level: High Risk
[2020-12-21] MEDS: methylPREDNISolone SOD SUCCI 40 MG/ML 1 ML VIAL IV SCH ×2 (00:44→08:46)
[2020-12-21 06:03] VITALS: RESP 18
--- NOTE | 2020-12-21 06:58 | CONS ---
CONSULTATION DATE OF SERVICE: 12/20/2020 REASON FOR FOLLOWUP: COVID-19 infection. HISTORY OF PRESENT ILLNESS: The patient is a 80-year-old female with past medical history significant for COPD, history of H-pylori, paroxysmal atrial fibrillation who presented to [facility] early this morning for evaluation of increasing shortness of breath and a fever of 1 day duration. The patient's symptoms started yesterday. The patient denies having any headache or URI symptoms. She is complaining of shortness of breath. Also did have a cough with occasional sputum production. No hemoptysis. Denies any chest pain. No nausea, no vomiting. No abdominal pain. No diarrhea. No loss of smell or taste. With these symptoms, the patient was evaluated by the ER physician. On arrival to the ER, the patient has been afebrile, currently saturating at 94% on 3 L nasal cannula. The patient did have a normal white count with lymphopenia. D-dimer was normal. Creatinine was normal. Potassium was slightly . Lactic acid 2.5. Liver enzymes are normal. BNP was 73. COVID PCR was positive. The patient did have a chest x-ray that shows mild chronic obstructive pulmonary disease scarring at the apex, some atelectasis. No evidence of any ground-glass opacities. The patient was admitted to the hospital. Infectious Disease was consulted for further management. REVIEW OF SYSTEMS: Positive points have been mentioned in HPI. Rest of systems are negative. PAST MEDICAL HISTORY: Asthma/COPD, gastroesophageal reflux disease, hyperlipidemia, hypertension, osteoarthritis, H-pylori infection. PAST SURGICAL HISTORY: Appendectomy, bowel resection, cholecystectomy, heart catheterization, tubal ligation, bronchoscopy. SOCIAL HISTORY: Remote history of smoking. No drinking or drug use. FAMILY HISTORY: Mother with history of ID. Sister with history of lung cancer. ALLERGIES: To multiple medication as listed and reviewed. MEDICATIONS: Currently the patient is on Ventolin, Xanax, Eliquis, vitamin C, Symbicort, vitamin D3, Solu-Medrol, Toprol-XL, Theragran, Protonix, oral zinc sulfate. PHYSICAL EXAMINATION: VITAL SIGNS: Blood pressure 154/74 with a pulse of 72, temperature 98.1, she is 93% on 3 L nasal cannula. GENERAL DESCRIPTION: Patient is an elderly female up in the bed in no distress. No tachypnea or accessory muscles of respiration use. HEENT: Examination shows no pallor or scleral icterus. Oral mucous membrane is dry. NECK: Trachea central, no thyromegaly. LUNGS: Unlabored breathing, decreased breath sounds at the bases. No wheeze or crackle. HEART: S1-S2, regular rate and rhythm. ABDOMEN: Soft, no tenderness. No guarding or rigidity. EXTREMITIES: No edema of the feet. SKIN: No rash or mass palpable. NEUROLOGICAL: Patient is awake, alert, oriented. Mood and affect normal. LABS: Hemoglobin 13.1, white count 10.0, d-dimer 0.34, creatinine 0.68. Lactic acid 2.5, lipase 1.1. Liver enzymes are normal. CRP 73. DIAGNOSTIC IMPRESSION: Patient admitted to the hospital with fever, increasing shortness of breath or cough. This patient has been diagnosed with acute COVID-19 infection. However, the patient is currently saturating 93% on 3 L. The patient has underlying chronic obstructive pulmonary disease with no significant increased requirement of supplemental oxygen. Chest x-ray did not show any ground-glass opacities. Concern for possible mild COVID- 19 infection. PLAN: 1. In view of clinical response to supportive care, continue with Solu-Medrol, Eliquis, ascorbic acid and zinc. 2. Droplet isolation and respiratory support. 3. We will follow on clinical condition and further adjust medication if needed. Thank you for this consultation. Will follow this patient along with you. MMODL / IJN: [id number] /
[2020-12-21] MEDS: ALBUTEROL HFA INHALER INHALATION SCH ×2 (08:42→11:51)
[2020-12-21] MEDS: TIOTROPIUM 2.5 MCG INHALER INHALATION SCH (08:42)
[2020-12-21] MEDS: SYMBICORT 160-4.5 MCG INHALER INHALATION SCH (08:42)
[2020-12-21] MEDS: ZINC SULFATE 220 MG CAP PO SCH (08:45)
[2020-12-21] MEDS: DILTIAZEM ORAL 30 MG TAB PO SCH (08:45)
[2020-12-21] MEDS: METOPROLOL SUCCINATE (ER) 25 MG TAB.ER.24H PO SCH (08:45)
[2020-12-21] MEDS: CHOLECALCIFEROL 25 MCG (1000 IU) TABLET PO SCH (08:45)
[2020-12-21] MEDS: ASCORBIC ACID 500 MG TAB PO SCH (08:45)
[2020-12-21] MEDS: MULTIVITAMINS, THERA 1 EACH TAB PO SCH (08:45)
[2020-12-21] MEDS: PANTOPRAZOLE 40 MG TABLET PO SCH (08:45)
[2020-12-21] MEDS: APIXABAN 5 MG TAB PO SCH (08:45)
[2020-12-21 10:18] VITALS: BP 146/77; PULSE 71; TEMP 98.1
[2020-12-21 13:56] VITALS: BMI 24.4
--- NOTE | 2020-12-21 13:59 | PN ---
PROGRESS NOTE DATE OF SERVICE: 12/21/2020 REASON FOR FOLLOWUP: COVID-19 infection. INTERVAL HISTORY: The patient is currently afebrile. Patient is breathing comfortably. Her breathing is baseline. Denies having any chest pain. Occasional cough. No worsening abdominal pain and no diarrhea. PHYSICAL EXAMINATION: Blood pressure 146/77, pulse of 71, temperature 98.1. She is 96% on 3 L nasal cannula. General description is an elderly female up in the bed in no distress. RESPIRATORY SYSTEM: Unlabored breathing, decreased intensity of breath sounds. No wheeze. HEART: S1, S2. Regular rate and rhythm. ABDOMEN: Soft, no tenderness. LABS: D-dimer is 0.40. CRP is up to 83.6. Blood culture negative. DIAGNOSTIC IMPRESSION AND PLAN: Patient admitted to the hospital with shortness of breath, cough in this patient with underlying COPD and acute COVID-19 infection. He seemed to have responded to the current supportive treatment of Solu-Medrol, Eliquis, zinc and ascorbic acid to continue and monitor clinical course closely. Continue supportive care. MMODL / IJN: [id number] /
--- NOTE | 2020-12-21 14:34 | P.CNPUL ---
History of Present Illness Consult date: 12/21/20 Requesting physician: Gilberto Devi Reason for consult: dyspnea, cough, COPD, hypoxemia, pneumonia, abnormal CXR/CT Chief complaint: COPD. COVID 19. History of present illness: 80-year-old female, well-known to me, who has a history of underlying COPD. The patient apparently presented to the emergency department on December 20, at 3:14 AM. The patient apparently presented with a slight temperature elevation, mild cough, and some shortness of breath. She tested positive for coronavirus, and was admitted with a diagnosis of coronavirus infection. The patient's pretty much at baseline currently. In addition, her chest x-ray was very on impressive. She wonders why she was admitted to the hospital and in fact, doesn't believe the positive COVID 19 test. Anyway, she would like to be dis charged home if possible. She's feeling pretty much at baseline. In addition to COPD, the patient has a history of severe acid reflux disease, gastrointestinal bleed, hyperlipidemia, hypertension, DJD, and H. pylori infection. In addition, the patient has chronic back pain, diverticular disease, and stress urinary incontinence. She also suffers from frequent urinary tract infections. In addition, she has had extended spectrum beta lactamase producing E. coli in the urine as recent as September 2020. Review of Systems REVIEW OF SYSTEMS: CONSTITUTIONAL: [Negative.] NEUROLOGIC: [ Negative.] HEENT: [ Negative.] CARDIAC: [Negative.] PULMONARY: Mild shortness of breath, mild cough, and apparently a slight temperature elevation, when she was at home. GI: [Negative.] : [Negative.] RHEUMATOLOGIC: [ Negative.] IMMUNOLOGIC: [ Negative.] ENDOCRINE: [Negative. ] DERMATOLOGIC: [Negative.] Past Medical History Past Medical History: Asthma, COPD, GERD/Reflux, GI Bleed, Hyperlipidemia, Hypertension, Osteoarthritis (OA), Respiratory Disorder Additional Past Medical History / Comment(s): Pt currently being treated for H Pylori, COPD with bullous changes in the upper lobes bilaterally, chronic hypoxic respiratory failure, home oxygen at 2L/min, lower GI bleeding past, chronic low back pain-much improved since hip replaced, herniated lumbar discs, arthritis in multiple joints, diverticulosis/ diverticulitis, urinary leakage, UTI History of Any Multi-Drug Resistant Organisms: ESBL Date of last positivie culture/infection: 10/06/20 ESBL E.coli MDRO Source:: Urine Past Surgical History: Appendectomy, Bowel Resection, Cholecystectomy, Heart Catheterization, Joint Replacement, Orthopedic Surgery, Tubal Ligation Additional Past Surgical History / Comment(s): Bronchoscopies/lavages, bowel resection due to diverticulitis 2012, bilat knee arthroscopy, sinus surgery twice, carpal tunnel left wrist, EGD, colonoscopies/polypectomies, back injections, left wrist fracture with pins placed 12-07-2018 and since removed, left hip replaced 2018 Past Anesthesia/Blood Transfusion Reactions: No Reported Reaction Additional Past Anesthesia/Blood Transfusion Reaction / Comment(s): has never received blood Past Psychological History: Anxiety Additional Psychological History / Comment(s): Pt lives alone. She is independent. She owns a walker and cane but does not need to use them. She drives. She has home 02 2 liters n/c mostly ATC and a concentrator. She has a nebulizer. Smoking Status: Former smoker Past Alcohol Use History: None Reported Additional Past Alcohol Use History / Comment(s): QUIT SMOKING 1997, STARTED AGE 18(1957) smoked <1ppd when she smoked Past Drug Use History: None Reported - Past Family History Mother Family Medical History: Myocardial Infarction ([place]) Additional Family Medical History / Comment(s): Mother of [place] at age 65 yrs. Sister(s) Family Medical History: Cancer Additional Family Medical History / Comment(s): Twin sister had LUNG cancer. Father Family Medical History: Cancer Additional Family Medical History / Comment(s): Father had cancer in his neck. Medications and Allergies Home Medications Medication Instructions Recorded Confirmed Type Budesonide-Formot 160-4.5 Mcg 2 puff INHALATION RT-BID 02/09/18 12/20/20 History [Symbicort 160-4.5 Mcg Inhaler] Albuterol Sulfate [Proair Hfa] 2 puff INHALATION RT-Q6H PRN 09/28/20 12/20/20 History Ipratropium-Albuterol Nebulize 3 ml INHALATION RT-QID 09/28/20 12/20/20 History [Duoneb 0.5 mg-3 mg/3 ml Soln] Cholecalciferol [Vitamin D3 (25 25 mcg PO DAILY 11/19/20 12/20/20 History Mcg = 1000 Iu)] Pantoprazole Sodium [Protonix] 40 mg PO DAILY 11/19/20 12/20/20 History ALPRAZolam [Xanax] 0.25 mg PO DAILY PRN 12/08/20 12/20/20 History Apixaban [Eliquis] 5 mg PO BID #60 tab 12/11/20 12/20/20 Rx Metoprolol Succinate [Toprol XL] 25 mg PO DAILY #30 tab 12/13/20 12/20/20 Rx Diltiazem Oral [Cardizem*] 30 mg PO TID 12/20/20 12/20/20 History Multivitamins, Thera [Multivitamin 1 tab PO DAILY 12/20/20 12/20/20 History (formulary)] Ascorbic Acid [Vitamin C] 1,000 mg PO DAILY #30 tab 12/21/20 Rx Zinc Sulfate [Orazinc] 220 mg PO DAILY #30 cap 12/21/20 Rx predniSONE 0 mg PO DIRECTED #10 tab 12/21/20 Rx Allergies Allergy/AdvReac Type Severity Reaction Status Date / Time amoxicillin [From Augmentin] Allergy Unknown Verified 12/20/20 09:14 clavulanic acid Allergy Unknown Verified 12/20/20 09:14 [From Augmentin] levofloxacin [From Levaquin] Allergy Unknown Verified 12/20/20 09:14 moxifloxacin HCl Allergy Rash/Hives, Verified 12/20/20 09:14 [From Avelox] SWELLING nitrofurantoin Allergy Rash/Hives Verified 12/20/20 09:14 hydrocodone bitartrate AdvReac Nausea & Verified 12/20/20 09:14 [From Lortab] Vomiting losartan AdvReac Cough Verified 12/20/20 09:14 simvastatin AdvReac muscle pain Verified 12/20/20 09:14 Lidmhqo-Yyj-Gdg Reductase AdvReac MUSCLE PAIN Verified 12/20/20 09:14 Inhibitor Physical Exam Osteopathic Statement: *. No significant issues noted on an osteopathic structural exam other than those noted in the History and Physical/Consult. Vitals: Vital Signs Temp Pulse Resp BP Pulse Ox 12/21/20 10:02 98.1 F 71 18 146/77 96 12/21/20 05:11 97.6 F 80 18 158/74 95 12/21/20 02:18 98.4 F 85 17 139/73 95 12/20/20 21:36 97.8 F 77 17 141/67 94 L 12/20/20 17:31 98.1 F 72 18 154/71 93 L Intake and Output 12/20/20 12/21/20 12/21/20 22:59 06:59 14:59 Other: Voiding Method Toilet # Voids 3 3 Weight 62.596 kg No acute distress, oriented 3. No conversational dyspnea, use of accessory muscles, or audible wheezing. Nasal O2 in place. HEENT examination is grossly unremarkable. Mucous membranes are moist. No oral lesions. Neck supple. Full range of motion. No adenopathy thyromegaly or neck vein distention. Cardiovascular examination reveals regular rhythm rate. S1-S2 normal. No S3 or S4. No discernible murmur noted. Heart rate is 71 bpm. Lungs reveal mild bibasilar crackles. No wheezes or rhonchi. Her sounds are equal bilaterally but diminished throughout. Abdomen soft bowel sounds are heard. No masses or tenderness. Extremities are intact. No cyanosis clubbing or edema. Skin is without rash or lesion. Neurologic examination is brief but nonfocal. Results - Laboratory Findings CBC and BMP: 12/20/20 03:46 12/20/20 03:46 PT/INR, D-dimer PT 10.6 sec (9.0-12.0) 12/20/20 03:46 INR 1.0 (<1.2) 12/20/20 03:46 D-Dimer 0.40 mg/L FEU (<0.60) 12/21/20 06:35 Abnormal lab findings: Abnormal Labs 12/20/20 12/20/20 12/20/20 03:20 03:46 03:46 RDW 17.4 H Neutrophils # 8.5 H Lymphocytes # 0.6 L VBG pH 7.46 H Sodium 135 L Potassium 3.2 L BUN 18 H Glucose 114 H Plasma Lactic Acid Carlos C-Reactive Protein Coronavirus (PCR) 12/20/20 12/20/20 12/20/20 03:46 03:46 13:21 RDW Neutrophils # Lymphocytes # VBG pH Sodium Potassium BUN Glucose Plasma Lactic Acid Carlos 2.5 H* C-Reactive Protein 73.0 H Coronavirus (PCR) Detected A 03/15/21 06:35 RDW Neutrophils # Lymphocytes # VBG pH Sodium Potassium BUN Glucose Plasma Lactic Acid Carlos C-Reactive Protein 83.6 H Coronavirus (PCR) - Diagnostic Findings Chest x-ray: image reviewed Assessment and Plan Assessment: COVID 19 positive test, in a patient with minimal pulmonary complaints. History of long-standing COPD. Chronic hypoxemic respiratory failure. History of gastroesophageal reflux disease. History of GI bleed. Hyperlipidemia by history. Essential hypertension. DJD. H. pylori gastritis. Chronic low back pain. Diverticular disease. Stress urinary incontinence. Extended spectrum beta-lactamase producing E. coli urinary tract infection. Plan: Plan dated 12/21/2020. The patient's chest x-ray was reviewed and is not very impressive. Most of the changes on the chest x-ray are chronic. White count is 10, hemoglobin 13.3, hematocrit 40.1, and platelet count 275,000. PT, INR, PTT, and d-dimer tests are all within normal range. Sodium 135, potassium 3.2, chlorides 99, CO2 26, anion gap 10, BUN 18, and creatinine 0.68. C-reactive protein was 73, and coronavirus PCR was positive. The patient could be considered for discharge from the hospital. She knows a come back to the hospital should her symptoms intensify. I also asked to see me in the office in a couple weeks. Additional recommendations and suggestions are forthcoming. No additional suggestions are made to the primary service. Time with Patient: Greater than 30
--- NOTE | 2020-12-23 | P.DS ---
Providers Date of admission: 12/20/20 05:39 Expected date of discharge: 12/21/20 Attending physician: Gilberto Devi Consults: 12/20/20 13:09 Consult Physician Routine Consulting Provider: Davian Fowler Consult Reason/Comments: COVID Do you want consulting provider notified?: Yes 12/20/20 13:10 Consult Physician Routine Consulting Provider: Violetta Richardson Consult Reason/Comments: covid Do you want consulting provider notified?: Yes Primary care physician: Neptali Ariza [facility] Course: Chief Complaint: Fever History of presenting complaint: This is a pleasant 80-year-old patient of Dr. Ariza.beef tagger is Dr. Sarabia. Chronic stable medical conditions include hyperlipidemia, hypertension, osteoarthritis, diverticulosis, home oxygen 2 L. positive for H. pylori. Paroxysmal atrial fibrillation. He recently in the hospital for COPD exacerbation. Patient now presented 1 day of fever. Slight cough some chills. Congested chest. Some yellow sputum. Appetite is okay. No loss of taste or smell. Bowel movements are okay. Patient tested positive for COVID 19. Admitted with COPD exacerbation, mild COVID 19. Treated with bronchodilators steroids. Today-doing much better. Back to his baseline. Seen by Dr. Herrera. Cleared for discharge. Discussed with the patient. Feeling well. Consultation: Dr. Sarabia from pulmonary Past medical history to include: COPD, hyperlipidemia, hypertension, osteoarthritis, pneumonia, diverticulosis, home oxygen 2 L, left arm fracture, GERD, H. pylori, diverticulitis, urinary incontinence , possibly atrial fibrillation Social history: Lives alone. Smoked for about 39 years stopped in 1997. Smoked less than a pack a day. No alcohol. Physical examination: Vitals: 98.1, 71, 18, 146.77, 96% on 3 L GENERAL: BMI 24.4, sitting on edge of bed, comfortable EYES: Pupils equal. Conjunctiva normal. HEENT: External appearance of nose and ears normal, oral cavity grossly normal. NECK: JVD not raised; masses not palpable. HEART: First and second heart sounds are normal; no edema. LUNGS: Respiratory rate increased, diminished breath sounds. ABDOMEN: Soft, nontender, liver spleen not palpable, no masses palpable. PSYCH: Alert and oriented x3; mood and affect normal. - INVESTIGATIONS, reviewed in the clinical context: WBC 10 hemoglobin 13.3 lymphocytes 0.6 potassium 3.2 creatinine 0.68 D-dimer 0.34 CRP 73 Coronavirus [PCR]-detected EKG tracing personally reviewed by me-normal sinus rhythm Chest x-ray film personally reviewed by me-possible basilar infiltrate Assessment and plan: -COVID 19 pneumonitis. steroids , eliquis, vitamin C vitamin D zinc -Acute COPD exacerbation in an ex-smoker on nebulized bronchodilators, Symbicort, IV Solu-Medrol. Improved -Paroxysmal atrial fibrillation . Toprol-XL. eliquis. In sinus rhythm -GERD on Protonix -Essential hypertension, continue hydrochlorothiazide Toprol-XL -Primary osteoarthritis, use Tylenol when necessary -Colonic diverticulosis , asymptomatic -chronic hypoxic respiratory failure on home oxygen 2 L Disposition: Home Plan - Discharge Summary New Discharge Prescriptions: New Zinc Sulfate [Orazinc] 220 mg PO DAILY #30 cap Ascorbic Acid [Vitamin C] 1,000 mg PO DAILY #30 tab Continue Budesonide-Formot 160-4.5 Mcg [Symbicort 160-4.5 Mcg Inhaler] 2 puff INHALATION RT-BID Albuterol Sulfate [Proair Hfa] 2 puff INHALATION RT-Q6H PRN PRN Reason: Shortness Of Breath Ipratropium-Albuterol Nebulize [Duoneb 0.5 mg-3 mg/3 ml Soln] 3 ml INHALATION RT-QID PRN PRN Reason: Shortness Of Breath Pantoprazole Sodium [Protonix] 40 mg PO DAILY Cholecalciferol [Vitamin D3 (25 Mcg = 1000 Iu)] 25 mcg PO DAILY ALPRAZolam [Xanax] 0.25 mg PO DAILY PRN PRN Reason: Anxiety Apixaban [Eliquis] 5 mg PO BID #60 tab Metoprolol Succinate [Toprol XL] 25 mg PO DAILY #30 tab Multivitamins, Thera [Multivitamin (formulary)] 1 tab PO DAILY Diltiazem Oral [Cardizem*] 30 mg PO TID Discontinued hydroCHLOROthiazide [Hydrodiuril] 25 mg PO DIRECTED No Action predniSONE See Taper PO DIRECTED Discharge Medication List Budesonide-Formot 160-4.5 Mcg [Symbicort 160-4.5 Mcg Inhaler] 2 puff INHALATION RT-BID 02/09/18 [History] Albuterol Sulfate [Proair Hfa] 2 puff INHALATION RT-Q6H PRN 09/28/20 [History] Ipratropium-Albuterol Nebulize [Duoneb 0.5 mg-3 mg/3 ml Soln] 3 ml INHALATION RT-QID PRN 09/28/20 [History] Cholecalciferol [Vitamin D3 (25 Mcg = 1000 Iu)] 25 mcg PO DAILY 11/19/20 [History] Pantoprazole Sodium [Protonix] 40 mg PO DAILY 11/19/20 [History] ALPRAZolam [Xanax] 0.25 mg PO DAILY PRN 12/08/20 [History] Apixaban [Eliquis] 5 mg PO BID #60 tab 12/11/20 [Rx] Metoprolol Succinate [Toprol XL] 25 mg PO DAILY #30 tab 12/13/20 [Rx] Diltiazem Oral [Cardizem*] 30 mg PO TID 12/20/20 [History] Multivitamins, Thera [Multivitamin (formulary)] 1 tab PO DAILY 12/20/20 [History] Ascorbic Acid [Vitamin C] 1,000 mg PO DAILY #30 tab 12/21/20 [Rx] Zinc Sulfate [Orazinc] 220 mg PO DAILY #30 cap 12/21/20 [Rx] predniSONE See Taper PO DIRECTED 12/22/20 [History] Follow up Appointment(s)/Referral(s): Gianluca Sarabia DO [Doctor of Osteopathic Medicine] - 01/19/21 10:15 am Neptali Ariza DO [Primary Care Provider] - 12/25/20 11:30 am (TeleHealth with [facility]) Discharge Disposition: HOME SELF-CARE
== END 2020-12-21 14:37 | disposition home or self-care (01) | DRG 177 ==
LOC: EC 03:14 → 4SSUR 05:39
PROVIDERS: ADMIT Hospitalist; ATTEND Hospitalist
DX: U07.1 COVID-19 (principal); J12.82 Pneumonia due to coronavirus disease 2019; J44.1 Chronic obstructive pulmonary disease with (acute) exacerbation; J44.0 Chronic obstructive pulmonary disease with (acute) lower respiratory infection; J96.11 Chronic respiratory failure with hypoxia; J98.11 Atelectasis; I48.0 Paroxysmal atrial fibrillation; G89.29 Other chronic pain; M51.26 Other intervertebral disc displacement, lumbar region; I10 Essential (primary) hypertension; E78.5 Hyperlipidemia, unspecified; K57.30 Diverticulosis of large intestine without perforation or abscess without bleeding; N39.3 Stress incontinence (female) (male); D72.810 Lymphocytopenia; K21.9 Gastro-esophageal reflux disease without esophagitis; B96.81 Helicobacter pylori [H. pylori] as the cause of diseases classified elsewhere; K29.70 Gastritis, unspecified, without bleeding; F41.9 Anxiety disorder, unspecified; M19.91 Primary osteoarthritis, unspecified site; Z99.81 Dependence on supplemental oxygen; Z79.01 Long term (current) use of anticoagulants; Z79.51 Long term (current) use of inhaled steroids; Z79.899 Other long term (current) drug therapy; Z87.891 Personal history of nicotine dependence; Z86.19 Personal history of other infectious and parasitic diseases; Z90.49 Acquired absence of other specified parts of digestive tract; Z98.51 Tubal ligation status; Z96.642 Presence of left artificial hip joint; Z87.19 Personal history of other diseases of the digestive system; Z87.81 Personal history of (healed) traumatic fracture; Z87.39 Personal history of other diseases of the musculoskeletal system and connective tissue; Z98.890 Other specified postprocedural states; Z88.1 Allergy status to other antibiotic agents; Z88.0 Allergy status to penicillin; Z88.8 Allergy status to other drugs, medicaments and biological substances; Z82.49 Family history of ischemic heart disease and other diseases of the circulatory system; Z80.1 Family history of malignant neoplasm of trachea, bronchus and lung; Z87.440 Personal history of urinary (tract) infections
CPT/HCPCS: 36415; 71045; 80053; 82803; 83605; 83880; 84145; 84484; 85025; 85379; 85610; 85730; 86140; 87040; 87635; 93005; 94640; 94760; 96374; 99285

== ENCOUNTER 2020-12-22 15:56 | Inpatient (IN) | payer MEDICARE ==
[2020-12-22] MEDS ORDERED: SODIUM CHLORIDE 0.9% 1,000 ML IV STA (16:18)
[2020-12-22] MEDS ORDERED: ALBUTEROL HFA INHALER INHALATION STA (16:18)
[2020-12-22 16:31] LABS: Anisocytosis Slight; Basophils # (A) 0.1 k/uL (0-0.2); Basophils % (A) 1 %; Eosinophils # (A) 0.1 k/uL (0-0.7); Eosinophils % (A) 1 %; HCT 43.3 % (34.0-46.0); HGB 14.2 gm/dL (11.4-16.0); Lymphocytes # (A) 0.5 k/uL (1.0-4.8); Lymphocytes % (A) 3 %; MCHC 32.9 g/dL (31.0-37.0); MCV 85.1 fL (80.0-100.0); Mean Platelet Volume 7.7; Monocytes # (A) 0.8 k/uL (0-1.0); Monocytes % (A) 4 %; Neutrophils # (A) 15.9 k/uL (1.3-7.7); Neutrophils % (A) 92 %; Platelet Count 310 k/uL (150-450); RBC 5.08 m/uL (3.80-5.40); RDW 17.5 % (11.5-15.5); WBC 17.4 k/uL (3.8-10.6)
[2020-12-22 16:40] LABS: ALT 43 U/L (4-34); AST 59 U/L (14-36); African American GFR (CKD) >90 (>60 ml/min/1.73 sqM); Albumin 4.6 g/dL (3.5-5.0); Alkaline Phosphatase 83 U/L (38-126); Anion Gap 12 mmol/L; Blood Urea Nitrogen 17 mg/dL (7-17); Calcium 9.7 mg/dL (8.4-10.2); Carbon Dioxide 26 mmol/L (22-30); Chloride 99 mmol/L (98-107); Glucose 120 mg/dL (74-99); Non-African American GFR(CKD) >90 (>60 ml/min/1.73 sqM); Potassium 3.1 mmol/L (3.5-5.1); Sodium 137 mmol/L (137-145); Total Bilirubin 0.8 mg/dL (0.2-1.3); Total Protein 7.6 g/dL (6.3-8.2)
--- NOTE | 2020-12-22 16:52 | ED ---
General Adult HPI - General Chief complaint: Shortness of Breath Stated complaint: ELIAS, High BP Time Seen by Provider: 12/22/20 16:00 Source: patient, family, RN notes reviewed, old records reviewed Mode of arrival: wheelchair Limitations: no limitations - History of Present Illness Initial comments: This is a 80-year-old female who was recently discharged home from the hospital after she was diagnosed with cold. Patient states that she's been home she's not been able to get her oxygenation up over 90 and typically it's between 86 and 89. Patient states she feels much more short of breath. Patient denies any fever but states she has had some chills. Patient denies any nausea vomiting. Patient denies abdominal pain patient denies any diarrhea. Patient denies any headache patient denies lightheadedness or dizziness. Patient denies any swe lling to the legs or calf tenderness. Patient states she's bumped her oxygen from 2 L to 3 L but has not helped. - Related Data Home Medications Medication Instructions Recorded Confirmed Budesonide-Formot 160-4.5 Mcg 2 puff INHALATION RT-BID 02/09/18 12/22/20 [Symbicort 160-4.5 Mcg Inhaler] Albuterol Sulfate [Proair Hfa] 2 puff INHALATION RT-Q6H PRN 09/28/20 12/22/20 Ipratropium-Albuterol Nebulize 3 ml INHALATION RT-QID PRN 09/28/20 12/22/20 [Duoneb 0.5 mg-3 mg/3 ml Soln] Cholecalciferol [Vitamin D3 (25 25 mcg PO DAILY 11/19/20 12/22/20 Mcg = 1000 Iu)] Pantoprazole Sodium [Protonix] 40 mg PO DAILY 11/19/20 12/22/20 ALPRAZolam [Xanax] 0.25 mg PO DAILY PRN 12/08/20 12/22/20 Diltiazem Oral [Cardizem*] 30 mg PO TID 12/20/20 12/22/20 Multivitamins, Thera [Multivitamin 1 tab PO DAILY 12/20/20 12/22/20 (formulary)] predniSONE See Taper PO DIRECTED 12/22/20 12/22/20 Previous Rx's Medication Instructions Recorded Apixaban [Eliquis] 5 mg PO BID #60 tab 12/11/20 Metoprolol Succinate [Toprol XL] 25 mg PO DAILY #30 tab 12/13/20 Ascorbic Acid [Vitamin C] 1,000 mg PO DAILY #30 tab 12/21/20 Zinc Sulfate [Orazinc] 220 mg PO DAILY #30 cap 12/21/20 Allergies Allergy/AdvReac Type Severity Reaction Status Date / Time amoxicillin [From Augmentin] Allergy Unknown Verified 12/22/20 16:37 clavulanic acid Allergy Unknown Verified 12/22/20 16:37 [From Augmentin] levofloxacin [From Levaquin] Allergy Unknown Verified 12/22/20 16:37 moxifloxacin HCl Allergy Rash/Hives, Verified 12/22/20 16:37 [From Avelox] SWELLING nitrofurantoin Allergy Rash/Hives Verified 12/22/20 16:37 hydrocodone bitartrate AdvReac Nausea & Verified 12/22/20 16:37 [From Lortab] Vomiting losartan AdvReac Cough Verified 12/22/20 16:37 simvastatin AdvReac muscle pain Verified 12/22/20 16:37 Hhuddas-Mfn-Fiu Reductase AdvReac MUSCLE PAIN Verified 12/22/20 16:37 Inhibitor Review of Systems ROS Statement: Those systems with pertinent positive or pertinent negative responses have been documented in the HPI. ROS Other: All systems not noted in ROS Statement are negative. Past Medical History Past Medical History: Asthma, COPD, GERD/Reflux, GI Bleed, Hyperlipidemia, Hypertension, Osteoarthritis (OA), Respiratory Disorder Additional Past Medical History / Comment(s): Pt currently being treated for H Pylori, COPD with bullous changes in the upper lobes bilaterally, chronic hypoxic respiratory failure, home oxygen at 2L/min, lower GI bleeding past, chronic low back pain-much improved since hip replaced, herniated lumbar discs, arthritis in multiple joints, diverticulosis/ diverticulitis, urinary leakage, UTI, COVID History of Any Multi-Drug Resistant Organisms: ESBL Date of last positivie culture/infection: 10/06/20 ESBL E.coli MDRO Source:: Urine Past Surgical History: Appendectomy, Bowel Resection, Cholecystectomy, Heart Catheterization, Joint Replacement, Orthopedic Surgery, Tubal Ligation Additional Past Surgical History / Comment(s): Bronchoscopies/lavages, bowel resection due to diverticulitis 2012, bilat knee arthroscopy, sinus surgery twice, carpal tunnel left wrist, EGD, colonoscopies/polypectomies, back injections, left wrist fracture with pins placed 12-07-2018 and since removed, left hip replaced 2018 Past Anesthesia/Blood Transfusion Reactions: No Reported Reaction Additional Past Anesthesia/Blood Transfusion Reaction / Comment(s): has never received blood Past Psychological History: Anxiety Smoking Status: Former smoker Past Alcohol Use History: None Reported Past Drug Use History: None Reported - Past Family History Mother Family Medical History: Myocardial Infarction ([place]) Additional Family Medical History / Comment(s): Mother of [place] at age 65 yrs. Sister(s) Family Medical History: Cancer Additional Family Medical History / Comment(s): Twin sister had LUNG cancer. Father Family Medical History: Cancer Additional Family Medical History / Comment(s): Father had cancer in his neck. General Exam - General Exam Comments Initial Comments: GENERAL: Patient is well-developed and well-nourished. Patient is nontoxic and well- hydrated and is in mild distress. ENT: Neck is soft and supple. No significant lymphadenopathy is noted. Oropharynx is clear. Moist mucous membranes. Neck has full range of motion without eliciting any pain. EYES: The sclera were anicteric and conjunctiva were pink and moist. Extraocular movements were intact and pupils were equal round and reactive to light. Eyelids were unremarkable. PULMONARY: Unlabored respirations. Good breath sounds bilaterally. She has crackles in b oth bases. CARDIOVASCULAR: There is a regular rate and rhythm without any murmurs gallops or rubs. ABDOMEN: Soft and nontender with normal bowel sounds. SKIN: Skin is clear with no lesions or rashes and otherwise unremarkable. NEUROLOGIC: Patient is alert and oriented x3. Cranial nerves II through XII are grossly intact. Motor and sensory are also intact. Normal speech, volume and content. Symmetrical smile. MUSCULOSKELETAL: Normal extremities with adequate strength and full range of motion. LYMPHATICS: No significant lymphadenopathy is noted PSYCHIATRIC: Normal psychiatric evaluation. Limitations: no limitations Course Vital Signs 12/22/20 12/22/20 12/22/20 16:00 16:29 16:47 Temperature 98.0 F Pulse Rate 129 H 128 H Respiratory 36 H 24 18 Rate Blood Pressure 156/93 111/65 O2 Sat by Pulse 83 L 87 L Oximetry 03/16/21 03/16/21 17:47 18:09 Temperature Pulse Rate 146 H 103 H Respiratory 24 18 Rate Blood Pressure 118/85 143/82 O2 Sat by Pulse 87 L 91 L Oximetry Procedures - [facility] Protocol (Time Out) Nurse: Maya Conner Medical Decision Making - Medical Decision Making EKG shows atrial fibrillation at 36 bpm QRS is 92 QT interval 390 QTC is 436. Patient's EKG shows no ST segment elevation but there is some depression in precordial leads V3 through V5 which are seen on old EKG. Chest x-ray shows worsening interstitial infiltrates consistent with COVID. I give the patient 125 Solu-Medrol. Patient was put on BiPAP because she was descending and she was also given 0.5 of Ativan because she was anxious about going on the BiPAP. While patient was on the BiPAP her pulse ox was up to 9394% but her heart rate continued to be rapid at 135 but I did not try to slow down because I felt as though that would decrease her ability to compensate for lack of oxygen. I did start the patient on antibiotics because the patient had a white count which she did not have 2 days ago when she was in the emergency department. Patient's lactic acid was elevated secondarily to hypoxia and did not believe that the lady was at this point in time septic I spoke with Dr. Devi he agreed to admit the patient minute the patient wrote admitting orders - Lab Data Result diagrams: 12/22/20 16:20 12/22/20 16:20 Lab Results 12/22/20 12/22/20 12/22/20 Range/Units 16:20 16:20 16:20 WBC 17.4 H (3.8-10.6) k/uL RBC 5.08 (3.80-5.40) m/uL Hgb 14.2 (11.4-16.0) gm/dL Hct 43.3 (34.0-46.0) % MCV 85.1 (80.0-100.0) fL MCH 28.0 (25.0-35.0) pg MCHC 32.9 (31.0-37.0) g/dL RDW 17.5 H (11.5-15.5) % Plt Count 310 (150-450) k/uL MPV 7.7 Neutrophils % 92 % Lymphocytes % 3 % Monocytes % 4 % Eosinophils % 1 % Basophils % 1 % Neutrophils # 15.9 H (1.3-7.7) k/uL Lymphocytes # 0.5 L (1.0-4.8) k/uL Monocytes # 0.8 (0-1.0) k/uL Eosinophils # 0.1 (0-0.7) k/uL Basophils # 0.1 (0-0.2) k/uL Anisocytosis Slight PT 9.8 (9.0-12.0) sec INR 0.9 (<1.2) APTT 22.2 (22.0-30.0) sec D-Dimer 0.29 (<0.60) mg/L FEU Sodium 137 (137-145) mmol/L Potassium 3.1 L (3.5-5.1) mmol/L Chloride 99 (98-107) mmol/L Carbon Dioxide 26 (22-30) mmol/L Anion Gap 12 mmol/L BUN 17 (7-17) mg/dL Creatinine 0.53 (0.52-1.04) mg/dL Est GFR (CKD-EPI)AfAm >90 (>60 ml/min/1.73 sqM) Est GFR (CKD-EPI)NonAf >90 (>60 ml/min/1.73 sqM) Glucose 120 H (74-99) mg/dL Plasma Lactic Acid Carlos (0.7-2.0) mmol/L Calcium 9.7 (8.4-10.2) mg/dL Total Bilirubin 0.8 (0.2-1.3) mg/dL AST 59 H (14-36) U/L ALT 43 H (4-34) U/L Alkaline Phosphatase 83 (38-126) U/L Troponin I (0.000-0.034) ng/mL Total Protein 7.6 (6.3-8.2) g/dL Albumin 4.6 (3.5-5.0) g/dL 12/22/20 12/22/20 Range/Units 16:20 16:20 WBC (3.8-10.6) k/uL RBC (3.80-5.40) m/uL Hgb (11.4-16.0) gm/dL Hct (34.0-46.0) % MCV (80.0-100.0) fL MCH (25.0-35.0) pg MCHC (31.0-37.0) g/dL RDW (11.5-15.5) % Plt Count (150-450) k/uL MPV Neutrophils % % Lymphocytes % % Monocytes % % Eosinophils % % Basophils % % Neutrophils # (1.3-7.7) k/uL Lymphocytes # (1.0-4.8) k/uL Monocytes # (0-1.0) k/uL Eosinophils # (0-0.7) k/uL Basophils # (0-0.2) k/uL Anisocytosis PT (9.0-12.0) sec INR (<1.2) APTT (22.0-30.0) sec D-Dimer (<0.60) mg/L FEU Sodium (137-145) mmol/L Potassium (3.5-5.1) mmol/L Chloride (98-107) mmol/L Carbon Dioxide (22-30) mmol/L Anion Gap mmol/L BUN (7-17) mg/dL Creatinine (0.52-1.04) mg/dL Est GFR (CKD-EPI)AfAm (>60 ml/min/1.73 sqM) Est GFR (CKD-EPI)NonAf (>60 ml/min/1.73 sqM) Glucose (74-99) mg/dL Plasma Lactic Acid Carlos 3.8 H* (0.7-2.0) mmol/L Calcium (8.4-10.2) mg/dL Total Bilirubin (0.2-1.3) mg/dL AST (14-36) U/L ALT (4-34) U/L Alkaline Phosphatase (38-126) U/L Troponin I <0.012 (0.000-0.034) ng/mL Total Protein (6.3-8.2) g/dL Albumin (3.5-5.0) g/dL Critical Care Time Critical Care Time: Yes Total Critical Care Time: 35 Disposition Clinical Impression: Pneumonia due to COVID-19 virus Disposition: ADMITTED IP TO THIS [facility] Referrals: Neptali Ariza DO [Primary Care Provider] - 1-2 days Time of Disposition: 18:38
[2020-12-22 16:55] LABS: D-Dimer 0.29 mg/L FEU (<0.60); INR 0.9 (<1.2); Partial Thromboplastin Time 22.2 sec (22.0-30.0); Prothrombin Time 9.8 sec (9.0-12.0)
--- NOTE | 2020-12-22 17:45 | XR ---
EXAMINATION TYPE: XR chest 2V DATE OF EXAM: 12/22/2020 COMPARISON: 12/20/2020 HISTORY: Difficulty breathing TECHNIQUE: 2 views FINDINGS: There is coarse interstitial and airspace infiltrate in the mid and lower lung schulz. Ther e is no definite pleural effusion. Thoracic aorta is atheromatous. There are chest leads. There is pr obably some mild bronchial adenopathy. IMPRESSION: There is new bilateral predominantly interstitial pneumonia compared to recent exam 2 day s ago. No definite pleural fluid seen to suggest heart failure.
[2020-12-22] MEDS ORDERED: LORazepam 2 MG/ML INJ IV STA (17:50)
[2020-12-22] MEDS ORDERED: cefTRIAXone IN SWFI 1,000 MG/10 ML SYRINGE IVP STA (17:57)
[2020-12-22] MEDS: cefTRIAXone IN SWFI 1,000 MG/10 ML SYRINGE IVP SCH ×2 (18:18→18:20)
[2020-12-22] MEDS ORDERED: SODIUM CHLORIDE 0.9% 1,000 ML IV ONE (18:38)
[2020-12-22] MEDS: APIXABAN 5 MG TAB PO SCH (20:50)
[2020-12-22] MEDS: DILTIAZEM ORAL 30 MG TAB PO SCH (20:50)
[2020-12-23] MEDS ORDERED: IPRATROPIUM-ALBUTEROL 3 ML NEB INHALATION SCH
[2020-12-23] MEDS: methylPREDNISolone SOD SUCCI 40 MG/ML 1 ML VIAL IV SCH ×4 (00:29→23:50)
[2020-12-23] MEDS ORDERED: DILTIAZEM 125 MG in SODIUM CHLORIDE 0.9% 100 ML IV SCH (05:30)
[2020-12-23] MEDS: PANTOPRAZOLE 40 MG TABLET PO SCH ×2 (06:54→18:25)
[2020-12-23] MEDS: SYMBICORT 160-4.5 MCG INHALER INHALATION SCH ×2 (08:10→21:04)
[2020-12-23] MEDS: ALBUTEROL HFA INHALER INHALATION PRN ×3 (08:10→21:04)
[2020-12-23] MEDS ORDERED: METOPROLOL SUCCINATE (ER) 25 MG TAB.ER.24H PO SCH (09:00)
[2020-12-23] MEDS ORDERED: TOCILIZUMAB 400 MG in SODIUM CHLORIDE 0.9% 80 ML IV ONE ×2 (09:30→20:00)
--- NOTE | 2020-12-23 09:58 | P.CNPUL ---
History of Present Illness Consult date: 12/23/20 Requesting physician: Gilberto Devi Reason for consult: dyspnea Chief complaint: Shortness of breath History of present illness: This is a very pleasant 80-year-old female patient with a known history of severe advanced chronic obstructive pulmonary disease and chronic hypoxic respiratory failure with multiple admissions for the same. She also has a history of chronic tobacco dependence, hypertension, hyperlipidemia, H. pylori. She's had a vague right upper lobe opacity that had been followed in the outpatient setting. PET scan in October 2020 showed no significant metabolic activity. She had also been recently diagnosed with CoVID 19 pneumonia and was here on December 20 through 12/21/2020 for shortness of breath. She was feeling better and was discharged home. She represented here to the emergency room again yesterday with complaints of worsening shortness of breath. Chest x-ray revealed a new bilateral interstitial pneumonia that had increased compared to 2 days prior. White count 17.4. Hemoglobin 14.2. Sodium 137. Potassium 3.1. Creatinine 0.53. AST 59. ALT 43. She had tested positive for rain virus by PCR on 12/20/2020. She is seen today in consultation in the emergency room. She is currently sitting up in the stretcher. Awake and alert in mild respirat ory distress. She states she did get quite a bit worse in the past 24 hours. She is currently on 15 L with 100% FiO2 via nonrebreather. She's currently O2 saturations in the mid 90s. She has been initiated on Symbicort, albuterol, IV Solu-Medrol. She did present in atrial flutter with RVR. Currently her ventricular rate is controlled in the 70s. Review of Systems REVIEW OF SYSTEMS: CONSTITUTIONAL: Denies any recent significant weight loss or weight gain. EYES: Denies change in vision. EARS, NOSE, MOUTH, THROAT: Denies headaches, denies sore throat. CARDIOVASCULAR: Positive for palpitations no syncopal episodes. RESPIRATORY: Positive for shortness of breath, cough, congestion or hemoptysis. GASTROINTESTINAL: Denies change in appetite, denies abdominal pain GENITOURINARY: Denies hematuria, denies infections. MUSKULOSKELETAL: Denies pain, denies swelling. INTEGUMENTARY: Denies rash, denies eczema. NEUROLOGICAL: Denies recent memory loss, no recent seizure activity. PSYCHIATRIC: Denies anxiety, denies depression. HEMATOLOGIC/LYMPHATIC: Denies anemia, denies enlarged lymph nodes. Past Medical History Past Medical History: Asthma, COPD, GERD/Reflux, GI Bleed, Hyperlipidemia, Hypertension, Osteoarthritis (OA), Respiratory Disorder Additional Past Medical History / Comment(s): Pt currently being treated for H Pylori, COPD with bullous changes in the upper lobes bilaterally, chronic hy poxic respiratory failure, home oxygen at 2L/min, lower GI bleeding past, chronic low back pain-much improved since hip replaced, herniated lumbar discs, arthritis in multiple joints, diverticulosis/ diverticulitis, urinary leakage, UTI, COVID History of Any Multi-Drug Resistant Organisms: ESBL Date of last positivie culture/infection: 10/06/20 ESBL E.coli MDRO Source:: Urine Past Surgical History: Appendectomy, Bowel Resection, Cholecystectomy, Heart Catheterization, Joint Replacement, Orthopedic Surgery, Tubal Ligation Additional Past Surgical History / Comment(s): Bronchoscopies/lavages, bowel resection due to diverticulitis 2012, bilat knee arthroscopy, sinus surgery twice, carpal tunnel left wrist, EGD, colonoscopies/polypectomies, back injections, left wrist fracture with pins placed 12-07-2018 and since removed, left hip replaced 2018 Past Anesthesia/Blood Transfusion Reactions: No Reported Reaction Additional Past Anesthesia/Blood Transfusion Reaction / Comment(s): has never received blood Past Psychological History: Anxiety Additional Psychological History / Comment(s): Pt lives alone. She is independent. She owns a walker and cane but does not need to use them. She drives. She has home 02 2 liters n/c mostly ATC and a concentrator. She has a nebulizer. Smoking Status: Former smoker Past Alcohol Use History: None Reported Additional Past Alcohol Use History / Comment(s): QUIT SMOKING 1997, STARTED AGE 18(1957) smoked <1ppd when she smoked Past Drug Use History: None Reported - Past Family History Mother Family Medical History: Myocardial Infarction (IN) Additional Family Medical History / Comment(s): Mother of IN at age 65 yrs. Sister(s) Family Medical History: Cancer Additional Family Medical History / Comment(s): Twin sister had LUNG cancer. Father Family Medical History: Cancer Additional Family Medical History / Comment(s): Father had cancer in his neck. Medications and Allergies Home Medications Medication Instructions Recorded Confirmed Type Budesonide-Formot 160-4.5 Mcg 2 puff INHALATION RT-BID 02/09/18 12/22/20 History [Symbicort 160-4.5 Mcg Inhaler] Albuterol Sulfate [Proair Hfa] 2 puff INHALATION RT-Q6H PRN 09/28/20 12/22/20 History Ipratropium-Albuterol Nebulize 3 ml INHALATION RT-QID PRN 09/28/20 12/22/20 History [Duoneb 0.5 mg-3 mg/3 ml Soln] Cholecalciferol [Vitamin D3 (25 25 mcg PO DAILY 11/19/20 12/22/20 History Mcg = 1000 Iu)] Pantoprazole Sodium [Protonix] 40 mg PO DAILY 11/19/20 12/22/20 History ALPRAZolam [Xanax] 0.25 mg PO DAILY PRN 12/08/20 12/22/20 History Apixaban [Eliquis] 5 mg PO BID #60 tab 12/11/20 12/22/20 Rx Metoprolol Succinate [Toprol XL] 25 mg PO DAILY #30 tab 12/13/20 12/22/20 Rx Diltiazem Oral [Cardizem*] 30 mg PO TID 12/20/20 12/22/20 History Multivitamins, Thera [Multivitamin 1 tab PO DAILY 12/20/20 12/22/20 History (formulary)] Ascorbic Acid [Vitamin C] 1,000 mg PO DAILY #30 tab 12/21/20 12/22/20 Rx Zinc Sulfate [Orazinc] 220 mg PO DAILY #30 cap 12/21/20 12/22/20 Rx predniSONE See Taper PO DIRECTED 12/22/20 12/22/20 History Allergies Allergy/AdvReac Type Severity Reaction Status Date / Time amoxicillin [From Augmentin] Allergy Unknown Verified 12/22/20 16:37 clavulanic acid Allergy Unknown Verified 12/22/20 16:37 [From Augmentin] levofloxacin [From Levaquin] Allergy Unknown Verified 12/22/20 16:37 moxifloxacin HCl Allergy Rash/Hives, Verified 12/22/20 16:37 [From Avelox] SWELLING nitrofurantoin Allergy Rash/Hives Verified 12/22/20 16:37 hydrocodone bitartrate AdvReac Nausea & Verified 12/22/20 16:37 [From Lortab] Vomiting losartan AdvReac Cough Verified 12/22/20 16:37 simvastatin AdvReac muscle pain Verified 12/22/20 16:37 Pestdns-Eyz-Hjv Reductase AdvReac MUSCLE PAIN Verified 12/22/20 16:37 Inhibitor Physical Exam Vitals: Vital Signs Temp Pulse Pulse Resp BP BP Pulse Ox 12/23/20 04:00 77 20 128/64 96 12/23/20 02:00 22 12/23/20 00:34 106 H 18 139/82 95 12/22/20 20:00 98.2 F 154 H 20 119/73 12/22/20 18:40 125 H 18 123/57 93 L 12/22/20 18:09 103 H 18 143/82 91 L 12/22/20 17:47 146 H 24 118/85 87 L 12/22/20 16:47 128 H 18 111/65 87 L 12/22/20 16:29 24 12/22/20 16:00 98.0 F 129 H 36 H 156/93 83 L Intake and Output 12/22/20 12/23/20 12/23/20 22:59 06:59 14:59 Other: Voiding Method Bedside Commode # Voids 3 Weight 62.596 kg 62.596 kg GENERAL EXAM: Alert, pleasant 80-year-old female, and nonrebreather 100% FiO2, in mild respiratory distress. HEAD: Normocephalic. EYES: Normal reaction of pupils, equal size. NOSE: Clear with pink turbinates. THROAT: No erythema or exudates. NECK: No masses, no JVD. CHEST: No chest wall deformity. LUNGS: Equal air entry with bibasilar crackles, end expiratory wheeze, diminished CVS: S1 and S2 normal with no audible murmur, regular rhythm. ABDOMEN: No hepatosplenomegaly, normal bowel sounds, no guarding or rigidity. SPINE: No scoliosis or deformity SKIN: No rashes CENTRAL NERVOUS SYSTEM: No focal deficits, tone is normal in all 4 extremities. EXTREMITIES: There is no peripheral edema. No clubbing, no cyanosis. Perip heral pulses are intact. Results - Laboratory Findings CBC and BMP: 12/22/20 16:20 12/22/20 16:20 PT/INR, D-dimer PT 9.8 sec (9.0-12.0) 12/22/20 16:20 INR 0.9 (<1.2) 12/22/20 16:20 D-Dimer 0.29 mg/L FEU (<0.60) 12/22/20 16:20 Abnormal lab findings: Abnormal Labs 12/22/20 12/22/20 12/22/20 16:20 16:20 16:20 WBC 17.4 H RDW 17.5 H Neutrophils # 15.9 H Lymphocytes # 0.5 L Potassium 3.1 L Glucose 120 H Plasma Lactic Acid Carlos 3.8 H* AST 59 H ALT 43 H 12/22/20 12/22/20 18:50 21:51 WBC RDW Neutrophils # Lymphocytes # Potassium Glucose Plasma Lactic Acid Carlos 2.4 H* 2.7 H* AST ALT - Diagnostic Findings Chest x-ray: image reviewed Assessment and Plan Assessment: 1 Acute on chronic hypoxemic respiratory failure secondary to CoVID 19 pneumonia 2 Acute exacerbation of chronic obstructive pulmonary disease secondary to above 3 Advanced chronic obstructive pulmonary disease with upper lobe changes/bullous changes with multiple admissions for exacerbations in the past 4 History of vague right upper lobe opacity and followed in the outpatient setting. PET scan in October 2020 showed no evidence of any significant metabolic uptake in the right upper lobe. 5 History of chronic tobacco dependence. 6 Atrial flutter with rapid ventricular response, anticoagulated with Eliquis, on beta blockers, calcium channel blockers 7 Hypertension 8 Hyperlipidemia 9 Recent treatment for H. pylori. Plan: The patient was seen and evaluated by Dr. Sarabia Chest x-ray and labs reviewed We did go ahead and order tocilizumab based on her worsening pulmonary status Continue bronchodilators and IV Solu-Medrol Continue vitamin supplements Anticoagulated with Eliquis We will continue to follow and make further recommendations based on her clinical status I, the cosigning physician, performed a history & physical examination of the patient. Lungs sounds with bibasilar crackles, end expiratory wheeze, diminished Maintaining good O2 saturations in the 90s on nonrebreather mask, 100% FiO2. I discussed the assessment and plan of care with my nurse practitioner, Malgorzata Dowell. I attest to the above auscultation as dictated by her. Time with Patient: Greater than 30
[2020-12-23] MEDS: APIXABAN 5 MG TAB PO SCH ×2 (10:59→21:17)
[2020-12-23] MEDS: ASCORBIC ACID 500 MG TAB PO SCH (11:00)
[2020-12-23] MEDS: MULTIVITAMINS, THERA 1 EACH TAB PO SCH (11:00)
[2020-12-23] MEDS: DILTIAZEM ORAL 30 MG TAB PO SCH (11:00)
[2020-12-23] MEDS: CHOLECALCIFEROL 25 MCG (1000 IU) TABLET PO SCH (11:00)
[2020-12-23] MEDS: ZINC SULFATE 220 MG CAP PO SCH (11:00)
--- NOTE | 2020-12-23 13:47 | P.CRDCN ---
History of Present Illness Consult date: 12/23/20 History of present illness: HISTORY OF PRESENT ILLNESS: This is a 80-year-old female with a past medical history significant for atrial fibrillation, COPD with home oxygen use, hypertension, hyperlipidemia, and H. pylori. Patient follows in the office with Dr. Neff. We have been asked to see the patient in consultation for atrial fibrillation. Patient presented to the hospital secondary to shortness of breath. Patient was found to be positive for Covid. Patient was in A. fib with RVR upon admission to the hospital. A Cardizem drip was ordered but was never administered per nursing as he heart rate improved prior to hanging the medication. She is currently maintaining sinus mechanism DIAGNOSTICS: EKG reveals atrial fibrillation with RVR Chest xray there is bilateral predominantly interstitial pneumonia compared to recent exam. No definite pleural fluid seen to suggest heart failure. Laboratory data: WBC 17.4. Hemoglobin 14.2. Platelet count 310. D-dimer 0.29. Sodium 137. Potassium 3.1. BUN 17. Creatinine 0.53. Lactic acid 2.7. Repeat 1.5. Troponin negative 1. Current home cardiac medications include metoprolol succinate 25 mg daily, Cardizem 30 mg 3 times a day, Eliquis 5 mg twice a day. 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 pylori Former nicotine dependence PLAN: No need to repeat echocardiogram as this was performed earlier this month Resume home cardiac medications Increase metoprolol to 50 mg daily Discontinue short-acting Cardizem. Begin Cardizem CD 120 mg daily Pulmonary following Further recommendations pending patient course Nurse practitioner note has been reviewed by physician. Signing provider agrees with the documented findings, assessment, and plan of care. Past Medical History Past Medical History: Asthma, COPD, GERD/Reflux, GI Bleed, Hyperlipidemia, Hypertension, Osteoarthritis (OA), Respiratory Disorder Additional Past Medical History / Comment(s): Pt currently being treated for H Pylori, COPD with bullous changes in the upper lobes bilaterally, chronic hypoxic respiratory failure, home oxygen at 2L/min, lower GI bleeding past, chronic low back pain-much improved since hip replaced, herniated lumbar discs, arthritis in multiple joints, diverticulosis/ diverticulitis, urinary leakage, UTI, COVID History of Any Multi-Drug Resistant Organisms: ESBL Date of last positivie culture/infection: 10/06/20 ESBL E.coli MDRO Source:: Urine Past Surgical History: Appendectomy, Bowel Resection, Cholecystectomy, Heart Catheterization, Joint Replacement, Orthopedic Surgery, Tubal Ligation Additional Past Surgical History / Comment(s): Bronchoscopies/lavages, bowel resection due to diverticulitis 2012, bilat knee arthroscopy, sinus surgery twice, carpal tunnel left wrist, EGD, colonoscopies/polypectomies, back injections, left wrist fracture with pins placed 12-07-2018 and since removed, left hip replaced 2018 Past Anesthesia/Blood Transfusion Reactions: No Reported Reaction Additional Past Anesthesia/Blood Transfusion Reaction / Comment(s): has never received blood Past Psychological History: Anxiety Additional Psychological History / Comment(s): Pt lives alone. She is independent. She owns a walker and cane but does not need to use them. She drives. She has home 02 2 liters n/c mostly ATC and a concentrator. She has a nebulizer. Smoking Status: Former smoker Past Alcohol Use History: None Reported Additional Past Alcohol Use History / Comment(s): QUIT SMOKING 1997, STARTED AGE 18(1957) smoked <1ppd when she smoked Past Drug Use History: None Reported - Past Family History Mother Family Medical History: Myocardial Infarction ([place]) Additional Family Medical History / Comment(s): Mother of [place] at age 65 yrs. Sister(s) Family Medical History: Cancer Additional Family Medical History / Comment(s): Twin sister had LUNG cancer. Father Family Medical History: Cancer Additional Family Medical History / Comment(s): Father had cancer in his neck. Medications and Allergies Home Medications Medication Instructions Recorded Confirmed Type Budesonide-Formot 160-4.5 Mcg 2 puff INHALATION RT-BID 02/09/18 12/22/20 History [Symbicort 160-4.5 Mcg Inhaler] Albuterol Sulfate [Proair Hfa] 2 puff INHALATION RT-Q6H PRN 09/28/20 12/22/20 History Ipratropium-Albuterol Nebulize 3 ml INHALATION RT-QID PRN 09/28/20 12/22/20 History [Duoneb 0.5 mg-3 mg/3 ml Soln] Cholecalciferol [Vitamin D3 (25 25 mcg PO DAILY 11/19/20 12/22/20 History Mcg = 1000 Iu)] Pantoprazole Sodium [Protonix] 40 mg PO DAILY 11/19/20 12/22/20 History ALPRAZolam [Xanax] 0.25 mg PO DAILY PRN 12/08/20 12/22/20 History Apixaban [Eliquis] 5 mg PO BID #60 tab 12/11/20 12/22/20 Rx Metoprolol Succinate [Toprol XL] 25 mg PO DAILY #30 tab 12/13/20 12/22/20 Rx Diltiazem Oral [Cardizem*] 30 mg PO TID 12/20/20 12/22/20 History Multivitamins, Thera [Multivitamin 1 tab PO DAILY 12/20/20 12/22/20 History (formulary)] Ascorbic Acid [Vitamin C] 1,000 mg PO DAILY #30 tab 12/21/20 12/22/20 Rx Zinc Sulfate [Orazinc] 220 mg PO DAILY #30 cap 12/21/20 12/22/20 Rx predniSONE See Taper PO DIRECTED 12/22/20 12/22/20 History Allergies Allergy/AdvReac Type Severity Reaction Status Date / Time amoxicillin [From Augmentin] Allergy Unknown Verified 12/22/20 16:37 clavulanic acid Allergy Unknown Verified 12/22/20 16:37 [From Augmentin] levofloxacin [From Levaquin] Allergy Unknown Verified 12/22/20 16:37 moxifloxacin HCl Allergy Rash/Hives, Verified 12/22/20 16:37 [From Avelox] SWELLING nitrofurantoin Allergy Rash/Hives Verified 12/22/20 16:37 hydrocodone bitartrate AdvReac Nausea & Verified 12/22/20 16:37 [From Lortab] Vomiting losartan AdvReac Cough Verified 12/22/20 16:37 simvastatin AdvReac muscle pain Verified 12/22/20 16:37 Stuitvm-Iuh-Hgq Reductase AdvReac MUSCLE PAIN Verified 12/22/20 16:37 Inhibitor Physical Exam Vitals: Vital Signs Temp Pulse Pulse Resp BP BP Pulse Ox 12/23/20 11:00 93 18 135/57 96 12/23/20 04:00 77 20 128/64 96 12/23/20 02:00 22 12/23/20 00:34 106 H 18 139/82 95 12/22/20 20:00 98.2 F 154 H 20 119/73 12/22/20 18:40 125 H 18 123/57 93 L 12/22/20 18:09 103 H 18 143/82 91 L 12/22/20 17:47 146 H 24 118/85 87 L 12/22/20 16:47 128 H 18 111/65 87 L 12/22/20 16:29 24 12/22/20 16:00 98.0 F 129 H 36 H 156/93 83 L Intake and Output 12/22/20 12/23/20 12/23/20 22:59 06:59 14:59 Other: Voiding Method Bedside Commode # Voids 3 Weight 62.596 kg 62.596 kg Results 12/22/20 16:20 12/22/20 16:20 Cardiac Enzymes 12/22/20 12/22/20 Range/Units 16:20 16:20 AST 59 H (14-36) U/L Troponin I <0.012 (0.000-0.034) ng/mL Coagulation 12/22/20 Range/Units 16:20 PT 9.8 (9.0-12.0) sec APTT 22.2 (22.0-30.0) sec CBC 12/22/20 Range/Units 16:20 WBC 17.4 H (3.8-10.6) k/uL RBC 5.08 (3.80-5.40) m/uL Hgb 14.2 (11.4-16.0) gm/dL Hct 43.3 (34.0-46.0) % Plt Count 310 (150-450) k/uL Comprehensive Metabolic Panel 12/22/20 Range/Units 16:20 Sodium 137 (137-145) mmol/L Potassium 3.1 L (3.5-5.1) mmol/L Chloride 99 (98-107) mmol/L Carbon Dioxide 26 (22-30) mmol/L BUN 17 (7-17) mg/dL Creatinine 0.53 (0.52-1.04) mg/dL Glucose 120 H (74-99) mg/dL Calcium 9.7 (8.4-10.2) mg/dL AST 59 H (14-36) U/L ALT 43 H (4-34) U/L Alkaline Phosphatase 83 (38-126) U/L Total Protein 7.6 (6.3-8.2) g/dL Albumin 4.6 (3.5-5.0) g/dL Current Medications Generic Name Dose Route Start Last Admin Trade Name Freq PRN Reason Stop Dose Admin Albuterol Sulfate 2 puff 12/22/20 20:09 12/23/20 13:15 Albuterol Hfa Inhaler INHALATION 2 puff RT-Q6H PRN Administration Shortness Of Breath Alprazolam 0.25 mg 12/22/20 20:09 Alprazolam 0.25 Mg Tab PO DAILY PRN Anxiety Apixaban 5 mg 12/22/20 21:00 12/23/20 10:59 Apixaban 5 Mg Tab PO 5 mg BID JAI Administration Ascorbic Acid 1,000 mg 12/23/20 09:00 12/23/20 11:00 Ascorbic Acid 500 Mg Tab PO 1,000 mg DAILY JAI Administration Budesonide/Formoterol Fumarate 2 puff 12/23/20 08:00 12/23/20 08:10 Symbicort 160-4.5 Mcg Inhaler INHALATION 2 puff RT-BID JAI Administration Cholecalciferol 25 mcg 12/23/20 09:00 12/23/20 11:00 Cholecalciferol 25 Mcg (1000 Iu) Tablet PO 25 mcg DAILY JAI Administration Diltiazem HCl 120 mg 12/23/20 12:15 Diltiazem Cd 120 Mg Cap.Er.24h PO DAILY [facility] Methylprednisolone Sodium Succinate 40 mg 12/23/20 00:00 12/23/20 11:00 Methylprednisolone Sod Succi 40 Mg/Ml 1 Ml Vial IV 40 mg Q8HR JAI Administration Metoprolol Succinate 50 mg 12/24/20 09:00 Metoprolol Succinate (Er) 50 Mg Tab.Er.24h PO DAILY [facility] Multivitamins 1 each 12/23/20 09:00 12/23/20 11:00 Multivitamins, Thera 1 Each Tab PO 1 each DAILY JAI Administration Pantoprazole Sodium 40 mg 12/23/20 07:30 12/23/20 06:54 Pantoprazole 40 Mg Tablet PO Not Given [id number] JAI Zinc Sulfate 220 mg 12/23/20 09:00 12/23/20 11:00 Zinc Sulfate 220 Mg Cap PO 220 mg DAILY JAI Administration Intake and Output 12/22/20 12/23/20 12/23/20 22:59 06:59 14:59 Other: Voiding Method Bedside Commode # Voids 3 Weight 62.596 kg 62.596 kg 12/22/20 16:20 12/22/20 16:20
[2020-12-23] MEDS: DILTIAZEM CD 120 MG CAP.ER.24H PO SCH (16:02)
--- NOTE | 2020-12-23 19:17 | P.HPIM ---
History of Present Illness H&P Date: 12/23/20 Chief Complaint: Short of breath History of presenting complaint: This is a pleasant 80-year-old patient of Dr. Ariza.hi lift operator is Dr. Sarabia. Chronic stable medical conditions include hyperlipidemia, hypertension, osteoarthritis, diverticulosis, home oxygen 2 L. positive for H. pylori. Paroxysmal atrial fibrillation. He recently in the hospital for COPD exacerbation. Patient was admitted for one day overnight on arch 14. The diagnosis of the COVID 19 pneumonia. Symptoms are rather mild. With some COPD exacerbation. Was treated with bronchodilators steroids and was discharged. Patient at the baseline is on 2 L oxygen. Patient now returns with increasing shortness of breath cough or shortness breath. ER patient was to 3% on 3 L. Rather tachycardic. Some cough. No fever no chills. Tired. Review of systems: GEN.: Tired, EYES: None HEENT: None NECK: None RESPIRATORY: Shortness of breath, congested cough CARDIOVASCULAR: None GASTROINTESTINAL: None GENITOURINARY: None MUSCULOSKELETAL: None LYMPHATICS: None HEMATOLOGICAL: None PSYCHIATRY: None NEUROLOGICAL: None Past medical history to include: COPD, hyperlipidemia, hypertension, osteoarthritis, pneumonia, diverticulosis, home oxygen 2 L, left arm fracture, GERD, H. pylori, diverticulitis, urinary incontinence , possibly atrial fibrillation Social history: Lives alone. Smoked for about 39 years stopped in 1997. Smoked less than a pack a day. No alcohol. Physical examination: VITAL SIGNS: 98, 129, 36, 156/93, 83% on 3 L GENERAL: BMI 24.4, sitting up in a chair, short of breath bouts of coughing EYES: Pupils equal. Conjunctiva normal. HEENT: External appearance of nose and ears normal, oral cavity grossly normal. NECK: JVD not raised; masses not palpable. HEART: First and second heart sounds are normal; no edema. LUNGS: Respiratory rate increased, diminished breath sounds. Some wheezing ABDOMEN: Soft, nontender, liver spleen not palpable, no masses palpable. PSYCH: Alert and oriented x3; mood and affect normal. NEUROLOGICAL: Cranial nerves grossly intact; no facial asymmetry, power and sensation grossly intact. LYMPHATICS: No lymph nodes palpable in the axilla and neck - INVESTIGATIONS, reviewed in the clinical context: WBC 7.4 hemoglobin 14.2 platelets 310 potassium 3.1 lymphocytes 0.5 creatinine 0.53 Lactic acid 3.8 troponin I less than 0.012 D-dimer 0.29 CRP 83.6 EKG tracing personally reviewed by me-atrial flutter fibrillation with a rate of 136 Chest x-ray film personally reviewed by me-bilateral infiltrates, new compared to that from 2 days ago Assessment and plan: -COVID 19 pneumonitis. Diagnosed recently with progression of symptoms. Patient placed on vitamin C vitamin D IV Solu-Medrol, continue eliquis -Acute hypoxic respiratory failure secondary to COVID 19 pneumonitis. Supplement oxygen -Acute COPD exacerbation in an ex-smoker on bronchodilators, Symbicort, IV Solu-Medrol -Paroxysmal atrial flutter/fibrillation-uncontrolled . Toprol-XL. eliquis. -GERD on Protonix -Essential hypertension, continue hydrochlorothiazide Toprol-XL -Primary osteoarthritis, use Tylenol when necessary -Colonic diverticulosis , asymptomatic -chronic hypoxic respiratory failure on home oxygen 2 L Care was discussed with the patient. Consultation to ID and pulmonary. Given the complexity and severity of patient's condition expect the patient to be in the hospital at least for 2 overnights Past Medical History Past Medical History: Asthma, COPD, GERD/Reflux, GI Bleed, Hyperlipidemia, Hy pertension, Osteoarthritis (OA), Respiratory Disorder Additional Past Medical History / Comment(s): Pt currently being treated for H Pylori, COPD with bullous changes in the upper lobes bilaterally, chronic hypoxic respiratory failure, home oxygen at 2L/min, lower GI bleeding past, chronic low back pain-much improved since hip replaced, herniated lumbar discs, arthritis in multiple joints, diverticulosis/ diverticulitis, urinary leakage, UTI, COVID History of Any Multi-Drug Resistant Organisms: ESBL Date of last positivie culture/infection: 10/06/20 ESBL E.coli MDRO Source:: Urine Past Surgical History: Appendectomy, Bowel Resection, Cholecystectomy, Heart Catheterization, Joint Replacement, Orthopedic Surgery, Tubal Ligation Additional Past Surgical History / Comment(s): Bronchoscopies/lavages, bowel resection due to diverticulitis 2012, bilat knee arthroscopy, sinus surgery twice, carpal tunnel left wrist, EGD, colonoscopies/polypectomies, back injections, left wrist fracture with pins placed 12-07-2018 and since removed, left hip replaced 2018 Past Anesthesia/Blood Transfusion Reactions: No Reported Reaction Additional Past Anesthesia/Blood Transfusion Reaction / Comment(s): has never received blood Past Psychological History: Anxiety Additional Psychological History / Comment(s): Pt lives alone. She is independent. She owns a walker and cane but does not need to use them. She drives. She has home 02 2 liters n/c mostly ATC and a concentrator. She has a nebulizer. Smoking Status: Former smoker Past Alcohol Use History: None Reported Additional Past Alcohol Use History / Comment(s): QUIT SMOKING 1997, STARTED AGE 18(1957) smoked <1ppd when she smoked Past Drug Use History: None Reported - Past Family History Mother Family Medical History: Myocardial Infarction ([place]) Additional Family Medical History / Comment(s): Mother of [place] at age 65 yrs. Sister(s) Family Medical History: Cancer Additional Family Medical History / Comment(s): Twin sister had LUNG cancer. Father Family Medical History: Cancer Additional Family Medical History / Comment(s): Father had cancer in his neck. Medications and Allergies Home Medications Medication Instructions Recorded Confirmed Type Budesonide-Formot 160-4.5 Mcg 2 puff INHALATION RT-BID 02/09/18 12/22/20 History [Symbicort 160-4.5 Mcg Inhaler] Albuterol Sulfate [Proair Hfa] 2 puff INHALATION RT-Q6H PRN 09/28/20 12/22/20 History Ipratropium-Albuterol Nebulize 3 ml INHALATION RT-QID PRN 09/28/20 12/22/20 History [Duoneb 0.5 mg-3 mg/3 ml Soln] Cholecalciferol [Vitamin D3 (25 25 mcg PO DAILY 11/19/20 12/22/20 History Mcg = 1000 Iu)] Pantoprazole Sodium [Protonix] 40 mg PO DAILY 11/19/20 12/22/20 History ALPRAZolam [Xanax] 0.25 mg PO DAILY PRN 12/08/20 12/22/20 History Apixaban [Eliquis] 5 mg PO BID #60 tab 12/11/20 12/22/20 Rx Metoprolol Succinate [Toprol XL] 25 mg PO DAILY #30 tab 12/13/20 12/22/20 Rx Diltiazem Oral [Cardizem*] 30 mg PO TID 12/20/20 12/22/20 History Multivitamins, Thera [Multivitamin 1 tab PO DAILY 12/20/20 12/22/20 History (formulary)] Ascorbic Acid [Vitamin C] 1,000 mg PO DAILY #30 tab 12/21/20 12/22/20 Rx Zinc Sulfate [Orazinc] 220 mg PO DAILY #30 cap 12/21/20 12/22/20 Rx predniSONE See Taper PO DIRECTED 12/22/20 12/22/20 History Allergies Allergy/AdvReac Type Severity Reaction Status Date / Time amoxicillin [From Augmentin] Allergy Unknown Verified 12/22/20 16:37 clavulanic acid Allergy Unknown Verified 12/22/20 16:37 [From Augmentin] levofloxacin [From Levaquin] Allergy Unknown Verified 12/22/20 16:37 moxifloxacin HCl Allergy Rash/Hives, Verified 12/22/20 16:37 [From Avelox] SWELLING nitrofurantoin Allergy Rash/Hives Verified 12/22/20 16:37 hydrocodone bitartrate AdvReac Nausea & Verified 12/22/20 16:37 [From Lortab] Vomiting losartan AdvReac Cough Verified 12/22/20 16:37 simvastatin AdvReac muscle pain Verified 12/22/20 16:37 Ayvfmks-Cda-Gne Reductase AdvReac MUSCLE PAIN Verified 12/22/20 16:37 Inhibitor Physical Exam Vitals: Vital Signs Temp Pulse Pulse Resp BP BP Pulse Ox 12/23/20 04:00 77 20 128/64 96 12/23/20 02:00 22 12/23/20 00:34 106 H 18 139/82 95 12/22/20 20:00 98.2 F 154 H 20 119/73 12/22/20 18:40 125 H 18 123/57 93 L 12/22/20 18:09 103 H 18 143/82 91 L 12/22/20 17:47 146 H 24 118/85 87 L 12/22/20 16:47 128 H 18 111/65 87 L 12/22/20 16:29 24 12/22/20 16:00 98.0 F 129 H 36 H 156/93 83 L Intake and Output 12/22/20 12/23/20 12/23/20 22:59 06:59 14:59 Other: Voiding Method Bedside Commode # Voids 3 Weight 62.596 kg 62.596 kg Results CBC & Chem 7: 12/22/20 16:20 12/22/20 16:20 Labs: Abnormal Lab Results - Last 24 Hours (Table) 12/22/20 12/22/20 12/22/20 Range/Units 16:20 16:20 16:20 WBC 17.4 H (3.8-10.6) k/uL RDW 17.5 H (11.5-15.5) % Neutrophils # 15.9 H (1.3-7.7) k/uL Lymphocytes # 0.5 L (1.0-4.8) k/uL Potassium 3.1 L (3.5-5.1) mmol/L Glucose 120 H (74-99) mg/dL Plasma Lactic Acid Carlos 3.8 H* (0.7-2.0) mmol/L AST 59 H (14-36) U/L ALT 43 H (4-34) U/L 12/22/20 12/22/20 Range/Units 18:50 21:51 WBC (3.8-10.6) k/uL RDW (11.5-15.5) % Neutrophils # (1.3-7.7) k/uL Lymphocytes # (1.0-4.8) k/uL Potassium (3.5-5.1) mmol/L Glucose (74-99) mg/dL Plasma Lactic Acid Carlos 2.4 H* 2.7 H* (0.7-2.0) mmol/L AST (14-36) U/L ALT (4-34) U/L Thrombosis Risk Factor Assmnt - Choose All That Apply Each Factor Represents 1 point: Abnormal pulmonary function (COPD) Other congenital or acquired thrombophilia - If yes, enter type in comment: No Thrombosis Risk Factor Assessment Total Risk Factor Score: 1 Thrombosis Risk Factor Assessment Level: Low Risk
[2020-12-23] MEDS ORDERED: POTASSIUM CHLORIDE ER 20 MEQ TAB.ER PO STA (20:54)
[2020-12-23] MEDS: ALPRAZolam 0.25 MG TAB PO PRN (23:50)
[2020-12-24] MEDS: PANTOPRAZOLE 40 MG TABLET PO SCH (06:38)
[2020-12-24] MEDS: ASCORBIC ACID 500 MG TAB PO SCH (08:28)
[2020-12-24] MEDS: DILTIAZEM CD 120 MG CAP.ER.24H PO SCH (08:28)
[2020-12-24] MEDS: MULTIVITAMINS, THERA 1 EACH TAB PO SCH (08:28)
[2020-12-24] MEDS: ZINC SULFATE 220 MG CAP PO SCH (08:28)
[2020-12-24] MEDS: METOPROLOL SUCCINATE (ER) 50 MG TAB.ER.24H PO SCH (08:28)
[2020-12-24] MEDS: CHOLECALCIFEROL 25 MCG (1000 IU) TABLET PO SCH (08:28)
[2020-12-24] MEDS: methylPREDNISolone SOD SUCCI 40 MG/ML 1 ML VIAL IV SCH ×3 (08:29→23:17)
[2020-12-24] MEDS: APIXABAN 5 MG TAB PO SCH ×2 (08:29→20:55)
[2020-12-24 09:07] LABS: Potassium 4.1 mmol/L (3.5-5.1)
[2020-12-24] MEDS: SYMBICORT 160-4.5 MCG INHALER INHALATION SCH ×2 (09:12→19:40)
[2020-12-24] MEDS: ALBUTEROL HFA INHALER INHALATION PRN ×3 (09:12→19:39)
[2020-12-24 09:19] LABS: C Reactive Protein 125.4 mg/L (<10.0)
--- NOTE | 2020-12-24 13:51 | CDI ---
Documentation Clarification Form Date: 12/24/2020 01:31:01 PM From: Maritza BrysonLeviWILFRID golden, CCDS Admit Date: 12/22/2020 06:39:00 PM Patient Name: Yakelin Tobar Visit Number: [id number] Discharge Date: ATTENTION: The Clinical Documentation Specialists (CDI) and [facility] Coding Staff appreciate your assistance in clarifying documentation. Please respond to the clarification below the line at the bottom and electronically sign. The CDI & [facility] Coding staff will review the response and follow-up if needed. Please note: Queries are made part of the Legal Health Record. If you have any questions, please contact the author of this message via ITS. Dr. Gilberto Devi: The patient presented with the following clinical indicators: SOB and chills, elevated pulse rate and respiratory rate, low Pulse Ox, Elevated WBC, Neutrophils and Lactic Acid. Patient was COVID positive on 12/20 on previous hospital admission. History/Risk Factors pre the 12/22 ED Past Medical History: Asthma, COPD, Home O2 2Lnc, GERD, GI Bleed, Diverticulosis, Diverticulitis, Hyperlipidemia, Hypertension, Osteoarthritis, Chronic Low Back Pain, Hernia. UTI, ESBL Urine 09/2020, Anxiety and Former Smoker. Clinical Indicators: Presented to the ED 12/22 with SOB, chills, increased O2 use 2-3Lnc at home. Recently discharged to home 12/21 after admission for COVID-19 Pneumonitis, Acute COPD Exacerbation and Paroxysmal Atrial Fibrillation. Clinical Impression: Pneumonia due to COVID-19 virus. 12/22 VS: T 98.0, P 129 - 146, R 36 (SOB, labored), BP 156/93, PO 83 3Lnc - 91 BiPAP 12/22 LAB: WBC 17.4, Neutrophil 15.9, Lymph 0.5, K 3.1, Lactic Acid 2.4 - 2.7. COVID: not retested this admission. Blood cultures: None Treatment 12/22: INH Ventolin, IV fluid bolus 1,000 mls @ 999 mls/hr q1H, IV Ativan, IV Rocephin, IV fluid 1,000 mls @ 75 mls/hr q13H 12/23: IV Solumedrol, INH Symbicort, PO Vit C, PO Vit D3, PO Orazinc, IV Actemra, In your professional opinion, please clarify if these findings signify one of the following conditions: [ ] Sepsis POA [ ] Sepsis, Not POA [ ] Severe Sepsis with organ failure [ ] Other, please specify [ ] Unable to determine (Template Last Reviewed: November 2020) Sepsis, from pneumonia, POA MTDD
--- NOTE | 2020-12-24 14:03 | CDI ---
Documentation Clarification Form Date: 12/24/2020 01:51:55 PM From: Maritza Levi CCS, CCDS Admit Date: 12/22/2020 06:39:00 PM Patient Name: Yakelin Tobar Visit Number: [id number] Discharge Date: ATTENTION: The Clinical Documentation Specialists (CDI) and [facility] Coding Staff appreciate your assistance in clarifying documentation. Please respond to the clarification below the line at the bottom and electronically sign. The CDI & [facility] Coding staff will review the response and follow-up if needed. Please note: Queries are made part of the Legal Health Record. If you have any questions, please contact the author of this message via ITS. Dr. Gilberto Devi: Atrial Flutter is documented in the 12/23 History & Physical and the 12/23 Pulmonary Consult without further specificity. Atrial Flutter is not documented by the Consulting Windows Server Administrator. History/Risk factors per the 12/22 Past Medical History: Atrial Fibrillation on Eliquis, COPD on Home O2 2Lnc, Asthma nos, Hypertension, hyperlipidemia, GERD, Lower GI Bleed, Diverticulosis and Diverticulitis, UTI, Chronic Low Back Pain. Clinical Indicators: Presented to the ED on 12/22 with SOB, chills, Hypertension, Atrial Fibrillation and Atrial Flutter. EKG 12/22: Rate 136 Atrial flutter with variable AV block. Treatment: IV fluid bolus 1,000 mls @ 999 mls/hr q1H, IV Ativan 0.5 mg x1, po Eliquis 5mg BID, po Cardizem 30 mg TID Consults: 12/23 Pulmonary: Acute on chronic hypoxemic respiratory failure secondary to COVID 19 Pneumonia, Acute exacerbation of COPD, Atrial Flutter with RVR. 12/23 Cardiology: COVID 19 Pneumonia, Paroxysmal Atrial Fibrillation with RVR, new diagnosis this month. In your professional opinion, in order to capture the severity of condition; can you please clarify the type of Atrial Flutter if known? [ ] Typical/Type I [ ] Atypical/Type II [ ] Other, please specify [ ] Unable to determine (Last Revision: January 2018) Unable to determine MTDD
--- NOTE | 2020-12-24 14:28 | P.PN ---
Subjective Progress Note Date: 12/24/20 HISTORY OF PRESENT ILLNESS: 12/23/2020 This is a 80-year-old female with a past medical history significant for atrial fibrillation, COPD with home oxygen use, hypertension, hyperlipidemia, and H. pylori. Patient follows in the office with Dr. Neff. We have been asked to see the patient in consultation for atrial fibrillation. Patient presented to the hospital secondary to shortness of breath. Patient was found to be positive for Covid. Patient was in A. fib with RVR upon admission to the hospital. A Cardizem drip was ordered but was never administered per nursing as he heart rate improved prior to hanging the medication. She is currently maintaining sinus mechanism EKG reveals atrial fibrillation with RVR Chest xray there is bilateral predominantly interstitial pneumonia compared to recent exam. No definite pleural fluid seen to suggest heart failure. Laboratory data: WBC 17.4. Hemoglobin 14.2. Platelet count 310. D-dimer 0.29. Sodium 137. Potassium 3.1. BUN 17. Creatinine 0.53. Lactic acid 2.7. Repeat 1.5. Troponin negative 1. Current home cardiac medications include metoprolol succinate 25 mg daily, Cardizem 30 mg 3 times a day, Eliquis 5 mg twice a day. Echocardiogram completed on 12/09/2020 revealed ejection fraction 55-60%, [id number] mitral regurgitation, mild tricuspid regurgitation, and mild pulmonary hypertension 12/24/2020 Patient is currently maintaining sinus mechanism on telemetry. Heart rate is in the 60s to 70s. Patient is on 15 L nonrebreather. Blood pressure 181/84. 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 pylori Former nicotine dependence PLAN: Continue current cardiac medications Begin lisinopril 10 mg daily for optimal blood pressure control We will sign off. Please reconsult if needed. Nurse practitioner note has been reviewed by physician. Signing provider agrees with the documented findings, assessment, and plan of care. Objective - Vital Signs Vital signs: Vital Signs Temp 97.7 F 12/24/20 12:02 Pulse 68 12/24/20 12:02 Resp 20 12/24/20 12:02 BP 181/84 12/24/20 12:02 Pulse Ox 90 L 12/24/20 12:02 Intake & Output 12/23/20 12/24/20 12/24/20 18:59 06:59 18:59 Intake Total 240 600 Output Total 500 Balance 240 100 Weight 62 kg Intake: Oral 240 600 Output: Urine 500 Other: Voiding Method Bedside Commode # Voids 1 0 # Bowel Movements 0 1 - Labs CBC & Chem 7: 12/22/20 16:20 12/24/20 07:36 Labs: Abnormal Lab Results - Last 24 Hours (Table) 12/24/20 12/24/20 Range/Units 07:36 07:36 D-Dimer 0.65 H (<0.60) mg/L FEU C-Reactive Protein 125.4 H (<10.0) mg/L Microbiology - Last 24 Hours (Table) 12/22/20 18:14 Blood Culture - Preliminary Blood No Growth after 24 hours
--- NOTE | 2020-12-24 14:33 | P.PN ---
Subjective Progress Note Date: 12/24/20 This is a very pleasant 80-year-old female patient with a known history of severe advanced chronic obstructive pulmonary disease and chronic hypoxic respiratory failure with multiple admissions for the same. She also has a history of chronic tobacco dependence, hypertension, hyperlipidemia, H. pylori. She's had a vague right upper lobe opacity that had been followed in the outpatient setting. PET scan in October 2020 showed no significant metabolic activity. She had also been recently diagnosed with CoVID 19 pneumonia and was here on December 20 through 12/21/2020 for shortness of breath. She was feeling better and was discharged home. She represented here to the emergency room again yesterday with complaints of worsening shortness of breath. Chest x-ray revealed a new bilateral interstitial pneumonia that had increased compared to 2 days prior. White count 17.4. Hemoglobin 14.2. Sodium 137. Potassium 3.1. Creatinine 0.53. AST 59. ALT 43. She had tested positive for rain virus by PCR on 12/20/2020. She is seen today in consultation in the emergency room. She is currently sitting up in the stretcher. Awake and alert in mild respiratory distress. She states she did get quite a bit worse in the past 24 hours. She is currently on 15 L with 100% FiO2 via nonrebreather. She's currently O2 saturations in the mid 90s. She has been initiated on Symbicort, albuterol, IV Solu-Medrol. She did present in atrial flutter with RVR. Currently her ventricular rate is controlled in the 70s. The patient is seen today 12/24/2020 in follow-up on the selective care unit. She is currently sitting up in bed. Awake and alert in no acute distress. She is still requiring 15 L high flow nasal cannula with a partial nonrebreather mask. She is still short of breath with minimal exertion. Cough and congested. Small amount of hemoptysis. Blood culture reveals no growth. D-dimer 0.65. C-reactive protein 125. Pro-calcitonin 0.07. She remains on Symbicort, albuterol, IV Solu-Medrol. Anticoagulated with Eliquis. On vitamin supplements. Objective - Vital Signs Vital signs: Vital Signs Temp 97.7 F 12/24/20 12:02 Pulse 68 12/24/20 12:02 Resp 20 12/24/20 12:02 BP 181/84 12/24/20 12:02 Pulse Ox 90 L 12/24/20 12:02 Intake & Output 12/23/20 12/24/20 12/24/20 18:59 06:59 18:59 Intake Total 240 600 Output Total 500 Balance 240 100 Weight 62 kg Intake: Oral 240 600 Output: Urine 500 Other: Voiding Method Bedside Commode # Voids 1 0 # Bowel Movements 0 1 - Exam GENERAL EXAM: Alert, pleasant 80-year-old female, and 15 L high flow and nonrebreather mask, in mild respiratory distress. HEAD: Normocephalic. EYES: Normal reaction of pupils, equal size. NOSE: Clear with pink turbinates. THROAT: No erythema or exudates. NECK: No masses, no JVD. CHEST: No chest wall deformity. LUNGS: Equal air entry with bibasilar crackles, end expiratory wheeze, diminished CVS: S1 and S2 normal with no audible murmur, regular rhythm. ABDOMEN: No hepatosplenomegaly, normal bowel sounds, no guarding or rigidity. SPINE: No scoliosis or deformity SKIN: No rashes CENTRAL NERVOUS SYSTEM: No focal deficits, tone is normal in all 4 extremities. EXTREMITIES: There is no peripheral edema. No clubbing, no cyanosis. Peripheral pulses are intact. - Labs CBC & Chem 7: 12/22/20 16:20 12/24/20 07:36 Labs: Abnormal Lab Results - Last 24 Hours (Table) 12/24/20 12/24/20 Range/Units 07:36 07:36 D-Dimer 0.65 H (<0.60) mg/L FEU C-Reactive Protein 125.4 H (<10.0) mg/L Microbiology - Last 24 Hours (Table) 12/22/20 18:14 Blood Culture - Preliminary Blood No Growth after 24 hours Assessment and Plan Assessment: 1 Acute on chronic hypoxemic respiratory failure secondary to CoVID 19 pneumonia 2 Acute exacerbation of chronic obstructive pulmonary disease secondary to above 3 Advanced chronic obstructive pulmonary disease with upper lobe changes/bullous changes with multiple admissions for exacerbations in the past 4 History of vague right upper lobe opacity and followed in the outpatient setting. PET scan in October 2020 showed no evidence of any significant metabolic uptake in the right upper lobe. 5 History of chronic tobacco dependence. 6 Atrial flutter with rapid ventricular response, anticoagulated with Eliquis, on beta blockers, calcium channel blockers 7 Hypertension 8 Hyperlipidemia 9 Recent treatment for H. pylori. Plan: The patient was seen and evaluated by Dr. Sarabia Continue bronchodilators and IV Solu-Medrol Continue vitamin supplements Anticoagulated with Eliquis Monitor for any significant hemoptysis Repeat chest x-ray in a.m. We will continue to follow I, the cosigning physician, performed a history & physical examination of the patient. Lungs sounds with bibasilar crackles, end expiratory wheeze, diminished Maintaining good O2 saturations in the 90s on 15 L high flow nasal cannula and nonrebreather mask, I discussed the assessment and plan of care with my nurse practitioner, Malgorzata Dowell. I attest to the above note as dictated by her.
[2020-12-24] MEDS: lisinopriL 10 MG TAB PO SCH (17:31)
--- NOTE | 2020-12-24 23:03 | P.PN ---
Progress Note - Text Progress Note Date: 12/24/20 Chief Complaint: Short of breath History of presenting complaint: This is a pleasant 80-year-old patient of Dr. Ariza.business asst is Dr. Sarabia. Chronic stable medical conditions include hyperlipidemia, hypertension, osteoarthritis, diverticulosis, home oxygen 2 L. positive for H. pylori. Paroxysmal atrial fibrillation. He recently in the hospital for COPD exacerbation. Patient was admitted for one day overnight on arch 14. The diagnosis of the COVID 19 pneumonia. Symptoms are rather mild. With some COPD exacerbation. Was treated with bronchodilators steroids and was discharged. Patient at the baseline is on 2 L oxygen. Patient now returns with increasing shortness of breath cough or shortness breath. ER patient was to 3% on 3 L. Rather tachycardic. Some cough. No fever no chills. Tired. Admitted with COVID 19 pneumonitis, acute hypoxic respiratory failure, acute COPD exacerbation. Patient on eliquis, Solu-Medrol. Also had A. fib with rapid ventricular rate.-Admitted to sinus rhythm Today-sitting at the edge of the bed. Eating. Short of breath. On nonrebreather Review of systems: Was done for constitutional, cardiovascular, GI, pulmonary. relevant finding as above Active Medications Albuterol Sulfate (Albuterol Hfa Inhaler) 2 puff INHALATION RT-Q6H PRN PRN Reason: Shortness Of Breath Last Admin: 12/24/20 19:39 Dose: 2 puff Documented by: Alprazolam (Alprazolam 0.25 Mg Tab) 0.25 mg PO DAILY PRN PRN Reason: Anxiety Last Admin: 12/23/20 23:50 Dose: 0.25 mg Documented by: Apixaban (Apixaban 5 Mg Tab) 5 mg PO BID [facility] Last Admin: 12/24/20 20:55 Dose: 5 mg Documented by: Ascorbic Acid (Ascorbic Acid 500 Mg Tab) 1,000 mg PO DAILY [facility] Last Admin: 12/24/20 08:28 Dose: 1,000 mg Documented by: Budesonide/Formoterol Fumarate (Symbicort 160-4.5 Mcg Inhaler) 2 puff INHALATION RT-BID [facility] Last Admin: 12/24/20 19:40 Dose: 2 puff Documented by: Cholecalciferol (Cholecalciferol 25 Mcg (1000 Iu) Tablet) 25 mcg PO DAILY [facility] Last Admin: 12/24/20 08:28 Dose: 25 mcg Documented by: Diltiazem HCl (Diltiazem Cd 120 Mg Cap.Er.24h) 120 mg PO DAILY [facility] Last Admin: 12/24/20 08:28 Dose: 120 mg Documented by: Lisinopril (Lisinopril 10 Mg Tab) 10 mg PO DAILY [facility] Last Admin: 12/24/20 17:31 Dose: 10 mg Documented by: Methylprednisolone Sodium Succinate (Methylprednisolone Sod Succi 40 Mg/Ml 1 Ml Vial) 40 mg IV Q8HR [facility] Last Admin: 12/24/20 17:31 Dose: 40 mg Documented by: Metoprolol Succinate (Metoprolol Succinate (Er) 50 Mg Tab.Er.24h) 50 mg PO DAILY [facility] Last Admin: 12/24/20 08:28 Dose: 50 mg Documented by: Multivitamins (Multivitamins, Thera 1 Each Tab) 1 each PO DAILY [facility] Last Admin: 12/24/20 08:28 Dose: 1 each Documented by: Pantoprazole Sodium (Pantoprazole 40 Mg Tablet) 40 mg PO AC-BRKFST [facility] Last Admin: 12/24/20 06:38 Dose: 40 mg Documented by: Zinc Sulfate (Zinc Sulfate 220 Mg Cap) 220 mg PO DAILY [facility] Last Admin: 12/24/20 08:28 Dose: 220 mg Documented by: Past medical history to include: COPD, hyperlipidemia, hypertension, osteoarthritis, pneumonia, diverticulosis, home oxygen 2 L, left arm fracture, GERD, H. pylori, diverticulitis, urinary incontinence , possibly atrial fibrillation Social history: Lives alone. Smoked for about 39 years stopped in 1997. Smoked less than a pack a day. No alcohol. Physical examination: VITAL SIGNS: 97.7, 68, 20, 163/74, 90% on 15 L nonrebreather GENERAL: BMI 24.4, sitting at the edge of the bed, cough, short of breath PSYCH: Alert and oriented x3; mood and affect slightly anxious. NEUROLOGICAL: Cranial nerves grossly intact; no facial asymmetry, moving all 4 limbs Rest of the exam as per pulmonary and cardiology - INVESTIGATIONS, reviewed in the clinical context: December 24: D-dimer 0.65 CRP 125.4 pro-calcitonin 0.07 WBC 7.4 hemoglobin 14.2 platelets 310 potassium 3.1 lymphocytes 0.5 creatinine 0.53 Lactic acid 3.8 troponin I less than 0.012 D-dimer 0.29 CRP 83.6 EKG tracing personally reviewed by me-atrial flutter fibrillation with a rate of 136 Chest x-ray film personally reviewed by me-bilateral infiltrates, new compared to that from 2 days ago Assessment and plan: -COVID 19 pneumonitis. Diagnosed recently with progression of symptoms. Patient placed on vitamin C vitamin D IV Solu-Medrol, continue eliquis. Slow to respond -Acute hypoxic respiratory failure secondary to COVID 19 pneumonitis. Worsening. On 15 L nonrebreather -Acute COPD exacerbation in an ex-smoker on bronchodilators, Symbicort, IV [id number]-[id number]-oxiw to respond -Paroxysmal atrial flutter/fibrillation-uncontrolled . Toprol-XL. eliquis. -GERD on Protonix -Essential hypertension, continue hydrochlorothiazide Toprol-XL -Primary osteoarthritis, use Tylenol when necessary -Colonic diverticulosis , asymptomatic -chronic hypoxic respiratory failure on home oxygen 2 L Care was discussed with the patient. Discussed with patient. Follow with pulmonary, cardiology
[2020-12-25] MEDS: ALBUTEROL HFA INHALER INHALATION PRN ×5 (00:57→21:25)
[2020-12-25] MEDS: PANTOPRAZOLE 40 MG TABLET PO SCH (06:36)
[2020-12-25] MEDS: SYMBICORT 160-4.5 MCG INHALER INHALATION SCH ×2 (07:09→21:25)
[2020-12-25] MEDS: methylPREDNISolone SOD SUCCI 40 MG/ML 1 ML VIAL IV SCH (08:57)
[2020-12-25] MEDS: DILTIAZEM CD 120 MG CAP.ER.24H PO SCH (08:58)
[2020-12-25] MEDS: ZINC SULFATE 220 MG CAP PO SCH (08:58)
[2020-12-25] MEDS: APIXABAN 5 MG TAB PO SCH ×2 (08:58→20:53)
[2020-12-25] MEDS: MULTIVITAMINS, THERA 1 EACH TAB PO SCH (08:58)
[2020-12-25] MEDS: lisinopriL 10 MG TAB PO SCH ×2 (08:58→20:54)
[2020-12-25] MEDS: ASCORBIC ACID 500 MG TAB PO SCH (08:58)
[2020-12-25] MEDS: CHOLECALCIFEROL 25 MCG (1000 IU) TABLET PO SCH (08:58)
[2020-12-25] MEDS: METOPROLOL SUCCINATE (ER) 50 MG TAB.ER.24H PO SCH (08:58)
--- NOTE | 2020-12-25 11:12 | XR ---
EXAMINATION TYPE: XR chest 1V portable DATE OF EXAM: 12/25/2020 COMPARISON: 12/22/2020 HISTORY: Shortness of breath TECHNIQUE: Single frontal view of the chest is obtained. FINDINGS: Diffuse bilateral interstitial infiltrates. Underlying COPD noted. Right apical nodular pl eural thickening. Arthropathy of the shoulders and diffuse ostium. There is cardiomegaly and atherosc lerotic change aorta. No sizable pneumothorax. IMPRESSION: 1. COPD with diffuse bilateral patchy interstitial infiltrates.
[2020-12-25] MEDS ORDERED: LACTULOSE 20 GM/30 ML CUP PO ONE (12:06)
--- NOTE | 2020-12-25 16:23 | P.PN ---
Subjective Progress Note Date: 12/25/20 This is a very pleasant 80-year-old female patient with a known history of severe advanced chronic obstructive pulmonary disease and chronic hypoxic respiratory failure with multiple admissions for the same. She also has a history of chronic tobacco dependence, hypertension, hyperlipidemia, H. pylori. She's had a vague right upper lobe opacity that had been followed in the outpatient setting. PET scan in October 2020 showed no significant metabolic activity. She had also been recently diagnosed with CoVID 19 pneumonia and was here on December 20 through 12/21/2020 for shortness of breath. She was feeling better and was discharged home. She represented here to the emergency room again yesterday with complaints of worsening shortness of breath. Chest x-ray revealed a new bilateral interstitial pneumonia that had increased compared to 2 days prior. White count 17.4. Hemoglobin 14.2. Sodium 137. Potassium 3.1. Creatinine 0.53. AST 59. ALT 43. She had tested positive for rain virus by PCR on 12/20/2020. She is seen today in consultation in the emergency room. She is currently sitting up in the stretcher. Awake and alert in mild respiratory distress. She states she did get quite a bit worse in the past 24 hours. She is currently on 15 L with 100% FiO2 via nonrebreather. She's currently O2 saturations in the mid 90s. She has been initiated on Symbicort, albuterol, IV Solu-Medrol. She did present in atrial flutter with RVR. Currently her ventricular rate is controlled in the 70s. The patient is seen today 12/24/2020 in follow-up on the selective care unit. She is currently sitting up in bed. Awake and alert in no acute distress. She is still requiring 15 L high flow nasal cannula with a partial nonrebreather mask. She is still short of breath with minimal exertion. Cough and congested. Small amount of hemoptysis. Blood culture reveals no growth. D-dimer 0.65. C-reactive protein 125. Pro-calcitonin 0.07. She remains on Symbicort, albuterol, IV Solu-Medrol. Anticoagulated with Eliquis. On vitamin supplements. The patient is seen today 12/24/2020 in follow-up on the selective care unit. She is currently sitting up at the bedside. Awake and alert in no acute distress. Still quite dyspneic with conversation. Dyspneic with minimal exertion. She is still requiring 15 L high flow nasal cannula along with a nonrebreather mask. D-dimer 2.03. C-reactive protein 44. She remains on Symbicort, albuterol, IV Solu-Medrol. Anticoagulated with Eliquis. Vitamin supplements. Objective - Vital Signs Vital signs: Vital Signs Temp 97.8 F 12/25/20 04:00 Pulse 80 12/25/20 08:00 Resp 25 H 12/25/20 08:00 BP 168/78 12/25/20 08:00 Pulse Ox 87 L 12/25/20 08:00 Intake & Output 12/24/20 12/25/20 12/25/20 18:59 06:59 18:59 Intake Total 1340 480 Output Total 1000 500 400 Balance 340 -500 80 Weight 61 kg Intake: Oral 1340 480 Output: Urine 1000 500 400 Other: Voiding Method Bedside Commode # Bowel Movements 1 - Exam GENERAL EXAM: Alert, pleasant 80-year-old female, and 15 L high flow and nonrebreather mask, in mild respiratory distress. HEAD: Normocephalic. EYES: Normal reaction of pupils, equal size. NOSE: Clear with pink turbinates. THROAT: No erythema or exudates. NECK: No masses, no JVD. CHEST: No chest wall deformity. LUNGS: Equal air entry with bibasilar crackles, end expiratory wheeze, diminished CVS: S1 and S2 normal with no audible murmur, regular rhythm. ABDOMEN: No hepatosplenomegaly, normal bowel sounds, no guarding or rigidity. SPINE: No scoliosis or deformity SKIN: No rashes CENTRAL NERVOUS SYSTEM: No focal deficits, tone is normal in all 4 extremities. EXTREMITIES: There is no peripheral edema. No clubbing, no cyanosis. Peripheral pulses are intact. - Labs CBC & Chem 7: 12/22/20 16:20 12/24/20 07:36 Labs: Abnormal Lab Results - Last 24 Hours (Table) 12/25/20 12/25/20 Range/Units 07:38 07:38 D-Dimer 2.03 H (<0.60) mg/L FEU C-Reactive Protein 44.6 H (<10.0) mg/L Microbiology - Last 24 Hours (Table) 12/22/20 18:14 Blood Culture - Preliminary Blood No Growth after 48 hours Assessment and Plan Assessment: 1 Acute on chronic hypoxemic respiratory failure secondary to CoVID 19 pneumonia 2 Acute exacerbation of chronic obstructive pulmonary disease secondary to above 3 Advanced chronic obstructive pulmonary disease with upper lobe changes/bullous changes with multiple admissions for exacerbations in the past 4 History of vague right upper lobe opacity and followed in the outpatient setting. PET scan in October 2020 showed no evidence of any significant metabolic uptake in the right upper lobe. 5 History of chronic tobacco dependence. 6 Atrial flutter with rapid ventricular response, anticoagulated with Eliquis, on beta blockers, calcium channel blockers 7 Hypertension 8 Hyperlipidemia 9 Recent treatment for H. pylori. Plan: The patient was seen and evaluated by Dr. Sarabia Chest x-ray and labs reviewed Increase IV Solu-Medrol Add Mucinex Continue vitamin supplements Anticoagulated with Eliquis Condition is guarded We will continue to follow I, the cosigning physician, performed a history & physical examination of the patient. Lungs sounds with bibasilar crackles, end expiratory wheeze, diminished Maintaining good O2 saturations in the 90s on 15 L high flow nasal cannula and nonrebreather mask, I discussed the assessment and plan of care with my nurse practitioner, Malgorzata Dowell. I attest to the above note as dictated by her.
--- NOTE | 2020-12-25 17:43 | PN ---
PROGRESS NOTE DATE OF SERVICE: 12/25/2020 REASON FOR FOLLOWUP: COVID-19 infection. INTERVAL HISTORY: The patient is currently afebrile. The patient is still complaining of shortness of breath on minimal exertion. The patient denies having any chest pain. Cough, but not bringing up sputum. No vomiting. No abdominal pain. No diarrhea. PHYSICAL EXAMINATION: Blood pressure 168/78 with a pulse of 80, temperature 97.8. General description is an elderly female up in the bed in no distress. RESPIRATORY SYSTEM: Unlabored breathing with decreased intensity of breath sounds. No wheeze. HEART: S1, S2. Regular rate and rhythm. ABDOMEN: Soft. No tenderness. LABS: Chest x-ray did show COPD with diffuse bilateral interstitial infiltrate. D-dimer is slightly elevated. DIAGNOSTIC IMPRESSION AND PLAN: Patient with acute respiratory failure secondary to acute COVID-19 pneumonia. Patient with need for high-flow oxygen. Diffuse changes, possible cytokine storm. Will benefit from Actemra. Will discuss with Pulmonary. Continue current treatment steroids, anticoagulation and monitor clinical course closely. MMODL / IJN: [id number] /
[2020-12-25] MEDS: guaiFENesin 600 MG TABLET.ER PO SCH ×2 (19:09→20:54)
[2020-12-25] MEDS: methylPREDNISolone SOD SUCCI 125 MG/2 ML VIAL IV SCH (19:09)
[2020-12-25] MEDS: ALPRAZolam 0.25 MG TAB PO PRN (21:15)
--- NOTE | 2020-12-25 21:16 | P.PN ---
Progress Note - Text Progress Note Date: 12/25/20 Chief Complaint: Short of breath History of presenting complaint: This is a pleasant 80-year-old patient of Dr. 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 Chronic stable medical conditions include hyperlipidemia, hypertension, osteoarthritis, diverticulosis, home oxygen 2 L. positive for H. pylori. Paroxysmal atrial fibrillation. He recently in the hospital for COPD exacerbation. Patient was admitted for one day overnight on arch 14. The diagnosis of the COVID 19 pneumonia. Symptoms are rather mild. With some COPD exacerbation. Was treated with bronchodilators steroids and was discharged. Patient at the baseline is on 2 L oxygen. Patient now returns with increasing shortness of breath cough or shortness breath. ER patient was to 3% on 3 L. Rather tachycardic. Some cough. No fever no chills. Tired. Admitted with COVID 19 pneumonitis, acute hypoxic respiratory failure, acute COPD exacerbation. Patient on eliquis, Solu-Medrol. Also had A. fib with rapid ventricular rate.-Converted to sinus rhythm Today-sitting at edge of the bed. Short of breath.-Oxygen. Cough eating some Review of systems: Was done for constitutional, cardiovascular, GI, pulmonary. relevant finding as above Active Medications Albuterol Sulfate (Albuterol Hfa Inhaler) 2 puff INHALATION RT-Q6H PRN PRN Reason: Shortness Of Breath Last Admin: 12/25/20 16:47 Dose: 2 puff Documented by: Alprazolam (Alprazolam 0.25 Mg Tab) 0.25 mg PO DAILY PRN PRN Reason: Anxiety Last Admin: 12/23/20 23:50 Dose: 0.25 mg Documented by: Apixaban (Apixaban 5 Mg Tab) 5 mg PO BID [facility] Last Admin: 12/25/20 20:53 Dose: 5 mg Documented by: Ascorbic Acid (Ascorbic Acid 500 Mg Tab) 1,000 mg PO DAILY [facility] Last Admin: 12/25/20 08:58 Dose: 1,000 mg Documented by: Budesonide/Formoterol Fumarate (Symbicort 160-4.5 Mcg Inhaler) 2 puff INHALATION RT-BID [facility] Last Admin: 12/25/20 07:09 Dose: 2 puff Documented by: Cholecalciferol (Cholecalciferol 25 Mcg (1000 Iu) Tablet) 25 mcg PO DAILY [facility] Last Admin: 12/25/20 08:58 Dose: 25 mcg Documented by: Diltiazem HCl (Diltiazem Cd 120 Mg Cap.Er.24h) 120 mg PO DAILY [facility] Last Admin: 12/25/20 08:58 Dose: 120 mg Documented by: Guaifenesin (Guaifenesin 600 Mg Tablet.Er) 1,200 mg PO Q12HR [facility] Last Admin: 12/25/20 20:54 Dose: Not Given Documented by: Lisinopril (Lisinopril 10 Mg Tab) 10 mg PO BID [facility] Last Admin: 12/25/20 20:54 Dose: 10 mg Documented by: Methylprednisolone Sodium Succinate (Methylprednisolone Sod Succi 125 Mg/2 Ml Vial) 60 mg IV Q6HR [facility] Last Admin: 12/25/20 19:09 Dose: 60 mg Documented by: Metoprolol Succinate (Metoprolol Succinate (Er) 50 Mg Tab.Er.24h) 50 mg PO DAILY [facility] Last Admin: 12/25/20 08:58 Dose: 50 mg Documented by: Multivitamins (Multivitamins, Thera 1 Each Tab) 1 each PO DAILY [facility] Last Admin: 12/25/20 08:58 Dose: 1 each Documented by: Pantoprazole Sodium (Pantoprazole 40 Mg Tablet) 40 mg PO AC-BRKFST [facility] Last Admin: 12/25/20 06:36 Dose: 40 mg Documented by: Zinc Sulfate (Zinc Sulfate 220 Mg Cap) 220 mg PO DAILY [facility] Last Admin: 12/25/20 08:58 Dose: 220 mg Documented by: Past medical history to include: COPD, hyperlipidemia, hypertension, osteoarthritis, pneumonia, diverticulosis, home oxygen 2 L, left arm fracture, GERD, H. pylori, diverticulitis, urinary incontinence , possibly atrial fibrillation Social history: Lives alone. Smoked for about 39 years stopped in 1997. Smoked less than a pack a day. No alcohol. Physical examination: VITAL SIGNS: 97.8, 75, 30, 175 is 79, 90% on 15 L not be there December 25: D-dimer 2.03 CRP 44.6 GENERAL: BMI 24.4, sitting at the edge of the bed, cough, short of breath PSYCH: Alert and oriented x3; mood and affect slightly anxious. NEUROLOGICAL: Cranial nerves grossly intact; no facial asymmetry, moving all 4 limbs Rest of the exam as per pulmonary and cardiology - INVESTIGATIONS, reviewed in the clinical context: December 24: D-dimer 0.65 CRP 125.4 pro-calcitonin 0.07 . Check stat x-ray diffuse infiltrates WBC 7.4 hemoglobin 14.2 platelets 310 potassium 3.1 lymphocytes 0.5 creatinine 0.53 Lactic acid 3.8 troponin I less than 0.012 D-dimer 0.29 CRP 83.6 EKG tracing personally reviewed by me-atrial flutter fibrillation with a rate of 136 Chest x-ray film personally reviewed by me-bilateral infiltrates, new compared to that from 2 days ago Assessment and plan: -COVID 19 pneumonitis. Diagnosed recently with progression of symptoms. Patient placed on vitamin C vitamin D IV Solu-Medrol, continue eliquis. Not improving -Acute hypoxic respiratory failure secondary to COVID 19 pneumonitis. Not improving. On 15 L nonrebreather -Acute COPD exacerbation in an ex-smoker on bronchodilators, Symbicort, IV [id number] to respond -Paroxysmal atrial flutter/fibrillation-uncontrolled . Toprol-XL. eliquis. -GERD on Protonix -Essential hypertension, continue hydrochlorothiazide Toprol-XL -Primary osteoarthritis, use Tylenol when necessary -Colonic diverticulosis , asymptomatic -chronic hypoxic respiratory failure on home oxygen 2 L Care was discussed with the patient. Follow with ID and pulmonary
[2020-12-26] MEDS: methylPREDNISolone SOD SUCCI 125 MG/2 ML VIAL IV SCH ×4 (01:12→16:59)
[2020-12-26] MEDS: PANTOPRAZOLE 40 MG TABLET PO SCH (06:55)
[2020-12-26] MEDS: ALBUTEROL HFA INHALER INHALATION PRN ×2 (08:36→12:08)
[2020-12-26] MEDS: SYMBICORT 160-4.5 MCG INHALER INHALATION SCH ×2 (08:36→20:30)
[2020-12-26] MEDS: ZINC SULFATE 220 MG CAP PO SCH (09:09)
[2020-12-26] MEDS: ASCORBIC ACID 500 MG TAB PO SCH (09:09)
[2020-12-26] MEDS: CHOLECALCIFEROL 25 MCG (1000 IU) TABLET PO SCH (09:09)
[2020-12-26] MEDS: guaiFENesin 600 MG TABLET.ER PO SCH ×2 (09:09→20:24)
[2020-12-26] MEDS: ALPRAZolam 0.25 MG TAB PO PRN (09:09)
[2020-12-26] MEDS: APIXABAN 5 MG TAB PO SCH ×2 (09:10→20:24)
[2020-12-26] MEDS: METOPROLOL SUCCINATE (ER) 50 MG TAB.ER.24H PO SCH (09:10)
[2020-12-26] MEDS: DILTIAZEM CD 120 MG CAP.ER.24H PO SCH (09:10)
[2020-12-26] MEDS: MULTIVITAMINS, THERA 1 EACH TAB PO SCH (09:10)
[2020-12-26] MEDS: lisinopriL 10 MG TAB PO SCH ×2 (09:10→20:24)
--- NOTE | 2020-12-26 14:59 | P.PN ---
Subjective Progress Note Date: 12/26/20 This is a very pleasant 80-year-old female patient with a known history of severe advanced chronic obstructive pulmonary disease and chronic hypoxic respiratory failure with multiple admissions for the same. She also has a history of chronic tobacco dependence, hypertension, hyperlipidemia, H. pylori. She's had a vague right upper lobe opacity that had been followed in the outpatient setting. PET scan in October 2020 showed no significant metabolic activity. She had also been recently diagnosed with CoVID 19 pneumonia and was here on December 20 through 12/21/2020 for shortness of breath. She was feeling better and was discharged home. She represented here to the emergency room again yesterday with complaints of worsening shortness of breath. Chest x-ray revealed a new bilateral interstitial pneumonia that had increased compared to 2 days prior. White count 17.4. Hemoglobin 14.2. Sodium 137. Potassium 3.1. Creatinine 0.53. AST 59. ALT 43. She had tested positive for rain virus by PCR on 12/20/2020. She is seen today in consultation in the emergency room. She is currently sitting up in the stretcher. Awake and alert in mild respiratory distress. She states she did get quite a bit worse in the past 24 hours. She is currently on 15 L with 100% FiO2 via nonrebreather. She's currently O2 saturations in the mid 90s. She has been initiated on Symbicort, albuterol, IV Solu-Medrol. She did present in atrial flutter with RVR. Currently her ventricular rate is controlled in the 70s. The patient is seen today 12/24/2020 in follow-up on the selective care unit. She is currently sitting up in bed. Awake and alert in no acute distress. She is still requiring 15 L high flow nasal cannula with a partial nonrebreather mask. She is still short of breath with minimal exertion. Cough and congested. Small amount of hemoptysis. Blood culture reveals no growth. D-dimer 0.65. C-reactive protein 125. Pro-calcitonin 0.07. She remains on Symbicort, albuterol, IV Solu-Medrol. Anticoagulated with Eliquis. On vitamin supplements. The patient is seen today 12/24/2020 in follow-up on the selective care unit. She is currently sitting up at the bedside. Awake and alert in no acute distress. Still quite dyspneic with conversation. Dyspneic with minimal exertion. She is still requiring 15 L high flow nasal cannula along with a nonrebreather mask. D-dimer 2.03. C-reactive protein 44. She remains on Symbicort, albuterol, IV Solu-Medrol. Anticoagulated with Eliquis. Vitamin supplements. The patient is seen today 12/25/2020 in follow-up on the selective care unit. She is currently resting in bed. She is now on BiPAP 10/5 and 100% FiO2 to maintain O2 saturation in the mid to upper 80s and low 90s. She remains on IV Solu-Medrol, Symbicort, albuterol. Anticoagulated with Eliquis. Objective - Vital Signs Vital signs: Vital Signs Temp 97.3 F L 12/26/20 08:00 Pulse 80 12/26/20 08:00 Resp 32 H 12/26/20 04:30 BP 206/97 12/26/20 08:00 Pulse Ox 91 L 12/26/20 08:00 Intake & Output 12/25/20 12/26/20 12/26/20 18:59 06:59 18:59 Intake Total 480 Output Total 400 400 800 Balance 80 -400 -800 Weight 64.5 kg Intake: Oral 480 Output: Urine 400 400 800 Other: Voiding Method Bedside Commode # Voids 1 1 # Bowel Movements 0 - Exam GENERAL EXAM: Alert, pleasant 80-year-old female, and BiPAP 10/5 and 100% FiO2, in mild respiratory distress. HEAD: Normocephalic. EYES: Normal reaction of pupils, equal size. NOSE: Clear with pink turbinates. THROAT: No erythema or exudates. NECK: No masses, no JVD. CHEST: No chest wall deformity. LUNGS: Equal air entry with bibasilar crackles, end expiratory wheeze, diminished CVS: S1 and S2 normal with no audible murmur, regular rhythm. ABDOMEN: No hepatosplenomegaly, normal bowel sounds, no guarding or rigidity. SPINE: No scoliosis or deformity SKIN: No rashes CENTRAL NERVOUS SYSTEM: No focal deficits, tone is normal in all 4 extremities. EXTREMITIES: There is no peripheral edema. No clubbing, no cyanosis. Peripheral pulses are intact. - Labs CBC & Chem 7: 12/22/20 16:20 12/24/20 07:36 Labs: Microbiology - Last 24 Hours (Table) 12/22/20 18:14 Blood Culture - Preliminary Blood No Growth after 72 hours Assessment and Plan Assessment: 1 Acute on chronic hypoxemic respiratory failure secondary to CoVID 19 pneumonia 2 Acute exacerbation of chronic obstructive pulmonary disease secondary to above 3 Advanced chronic obstructive pulmonary disease with upper lobe changes/bullous changes with multiple admissions for exacerbations in the past 4 History of vague right upper lobe opacity and followed in the outpatient setting. PET scan in October 2020 showed no evidence of any significant metabolic uptake in the right upper lobe. 5 History of chronic tobacco dependence. 6 Atrial flutter with rapid ventricular response, anticoagulated with Eliquis, on beta blockers, calcium channel blockers 7 Hypertension 8 Hyperlipidemia 9 Recent treatment for H. pylori. 10 Poor overall functional performance based on the above-mentioned multiple comorbidities Plan: The patient was seen and evaluated by Dr. Sarabia Continue the current treatment plan Condition is guarded We will continue to follow I, the cosigning physician, performed a history & physical examination of the pa tient. Lungs sounds with bibasilar crackles, end expiratory wheeze, diminished. Maintaining good O2 saturations in the 90s on BiPAP 10/5 and 100% FiO2, I discussed the assessment and plan of care with my nurse practitioner, Malgorzata Dowell. I attest to the above note as dictated by her.
--- NOTE | 2020-12-26 17:57 | PN ---
PROGRESS NOTE DATE OF SERVICE: 12/26/2020 REASON FOR FOLLOW UP: COVID-19 infection. INTERVAL HISTORY: Patient is currently afebrile. Patient has been requiring BiPAP to support her respirations. Patient denies any chest pain. She did have some cough, not bringing up any sputum. No abdominal pain or diarrhea. PHYSICAL EXAMINATION: Blood pressure 155/70, pulse of 66, temperature is 97.3, she is 90% on BiPAP. GENERAL DESCRIPTION: An elderly female lying in bed in no distress. RESPIRATORY SYSTEM: Unlabored breathing, decreased intensity of breath sounds, no wheeze. HEART: S1, S2. Regular rate and rhythm. ABDOMEN: Soft, no tenderness. LABS: D-dimer 2.03, CRP of 44.6. DIAGNOSTIC IMPRESSION AND PLAN: Patient with acute respiratory failure secondary to COVID-19 infection. The patient is covered with Solu-Medrol, zinc, Eliquis, to continue while monitoring clinical course closely. Continue supportive care. MMODL / IJN: [id number] /
[2020-12-26 20:45] LABS: Glucose,Whole Blood 168 mg/dL (75-99)
[2020-12-26] MEDS: INSULIN ASPART (NovoLOG) 100 UNIT/ML VIAL SQ SCH (20:55)
--- NOTE | 2020-12-26 21:59 | P.PN ---
Progress Note - Text Progress Note Date: 12/26/20 Chief Complaint: Short of breath History of presenting complaint: This is a pleasant 80-year-old patient of Dr. 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 Chronic stable medical conditions include hyperlipidemia, hypertension, osteoarthritis, diverticulosis, home oxygen 2 L. positive for H. pylori. Paroxysmal atrial fibrillation. He recently in the hospital for COPD exacerbation. Patient was admitted for one day overnight on december 20. The diagnosis of the COVID 19 pneumonia. Symptoms are rather mild. With some COPD exacerbation. Was treated with bronchodilators steroids and was discharged. Patient at the baseline is on 2 L oxygen. Patient now returns with increasing shortness of breath cough or shortness breath. ER patient was to 3% on 3 L. Rather tachycardic. Some cough. No fever no chills. Tired. Admitted with COVID 19 pneumonitis, acute hypoxic respiratory failure, acute COPD exacerbation. Patient on eliquis, Solu-Medrol. Also had A. fib with rapid ventricular rate.-Converted to sinus rhythm Today-no short of breath. Congested. On a BiPAP. Tired. Laying in bed Review of systems: Was done for constitutional, cardiovascular, GI, pulmonary. relevant finding as above Active Medications Albuterol Sulfate (Albuterol Hfa Inhaler) 2 puff INHALATION RT-Q6H PRN PRN Reason: Shortness Of Breath Last Admin: 12/26/20 12:08 Dose: 2 puff Documented by: Alprazolam (Alprazolam 0.25 Mg Tab) 0.25 mg PO DAILY PRN PRN Reason: Anxiety Last Admin: 12/26/20 09:09 Dose: 0.25 mg Documented by: Apixaban (Apixaban 5 Mg Tab) 5 mg PO BID [facility] Last Admin: 12/26/20 20:24 Dose: 5 mg Documented by: Ascorbic Acid (Ascorbic Acid 500 Mg Tab) 1,000 mg PO DAILY [facility] Last Admin: 12/26/20 09:09 Dose: 1,000 mg Documented by: Budesonide/Formoterol Fumarate (Symbicort 160-4.5 Mcg Inhaler) 2 puff INHALATION RT-BID [facility] Last Admin: 12/26/20 20:30 Dose: 2 puff Documented by: Cholecalciferol (Cholecalciferol 25 Mcg (1000 Iu) Tablet) 25 mcg PO DAILY [facility] Last Admin: 12/26/20 09:09 Dose: 25 mcg Documented by: Diltiazem HCl (Diltiazem Cd 120 Mg Cap.Er.24h) 120 mg PO DAILY [facility] Last Admin: 12/26/20 09:10 Dose: 120 mg Documented by: Guaifenesin (Guaifenesin 600 Mg Tablet.Er) 1,200 mg PO Q12HR [facility] Last Admin: 12/26/20 20:24 Dose: 1,200 mg Documented by: Insulin Aspart (Insulin Aspart (Novolog) 100 Unit/Ml Vial) 0 unit SQ [facility]; Protocol Last Admin: 12/26/20 20:55 Dose: 3 unit Documented by: Lisinopril (Lisinopril 10 Mg Tab) 10 mg PO BID [facility] Last Admin: 12/26/20 20:24 Dose: 10 mg Documented by: Methylprednisolone Sodium Succinate (Methylprednisolone Sod Succi 125 Mg/2 Ml Vial) 60 mg IV Q6HR [facility] Last Admin: 12/26/20 16:59 Dose: 60 mg Documented by: Metoprolol Succinate (Metoprolol Succinate (Er) 50 Mg Tab.Er.24h) 50 mg PO DAILY [facility] Last Admin: 12/26/20 09:10 Dose: 50 mg Documented by: Multivitamins (Multivitamins, Thera 1 Each Tab) 1 each PO DAILY [facility] Last Admin: 12/26/20 09:10 Dose: 1 each Documented by: Pantoprazole Sodium (Pantoprazole 40 Mg Tablet) 40 mg PO AC-BRKFST [facility] Last Admin: 12/26/20 06:55 Dose: 40 mg Documented by: Zinc Sulfate (Zinc Sulfate 220 Mg Cap) 220 mg PO DAILY [facility] Last Admin: 12/26/20 09:09 Dose: 220 mg Documented by: Past medical history to include: COPD, hyperlipidemia, hypertension, osteoarthritis, pneumonia, diverticulosis, home oxygen 2 L, left arm fracture, GERD, H. pylori, diverticulitis, urinary incontinence , possibly atrial fibrillation Social history: Lives alone. Smoked for about 39 years stopped in 1997. Smoked less than a pack a day. No alcohol. Physical examination: VITAL SIGNS: 97.3, 80, 155/70, 90% on BiPAP at 100% GENERAL: Laying in bed, tired, on BiPAP PSYCH: Alert and oriented x3; mood and affect tired NEUROLOGICAL: Cranial nerves grossly intact; no facial asymmetry, moving all 4 limbs Rest of the exam as per pulmonary and cardiology - INVESTIGATIONS, reviewed in the clinical context: December 25: D-dimer 2.03 CRP 44.6 December 24: D-dimer 0.65 CRP 125.4 pro-calcitonin 0.07 . Check stat x-ray diffuse infiltrates WBC 7.4 hemoglobin 14.2 platelets 310 potassium 3.1 lymphocytes 0.5 creatinine 0.53 Lactic acid 3.8 troponin I less than 0.012 D-dimer 0.29 CRP 83.6 EKG tracing personally reviewed by me-atrial flutter fibrillation with a rate of 136 Chest x-ray film personally reviewed by me-bilateral infiltrates, new compared to that from 2 days ago Assessment and plan: -COVID 19 pneumonitis. Diagnosed recently with progression of symptoms. Patient placed on vitamin C vitamin D IV Solu-Medrol, continue eliquis. Clinically worsening -Acute hypoxic respiratory failure secondary to COVID 19 pneumonitis. Worsening. On BiPAP -Acute COPD exacerbation in an ex-smoker on bronchodilators, Symbicort, IV [id number] to respond -Paroxysmal atrial flutter/fibrillation-uncontrolled . Toprol-XL. eliquis. -GERD on Protonix -Essential hypertension, continue Toprol-XL -Primary osteoarthritis, use Tylenol when necessary -Colonic diverticulosis , asymptomatic -chronic hypoxic respiratory failure on home oxygen 2 L Not improving. Follow with pulmonary 90. Discussed with patient..
[2020-12-27] MEDS: methylPREDNISolone SOD SUCCI 125 MG/2 ML VIAL IV SCH ×3 (00:32→12:54)
[2020-12-27] MEDS: ALPRAZolam 0.25 MG TAB PO PRN (00:35)
[2020-12-27 06:47] LABS: Glucose,Whole Blood 166 mg/dL (75-99)
[2020-12-27] MEDS: PANTOPRAZOLE 40 MG TABLET PO SCH ×2 (06:47→08:56)
[2020-12-27] MEDS: INSULIN ASPART (NovoLOG) 100 UNIT/ML VIAL SQ SCH (06:51)
[2020-12-27] MEDS: SYMBICORT 160-4.5 MCG INHALER INHALATION SCH (08:26)
[2020-12-27] MEDS: ALBUTEROL HFA INHALER INHALATION PRN (08:26)
[2020-12-27] MEDS: METOPROLOL SUCCINATE (ER) 50 MG TAB.ER.24H PO SCH (08:57)
[2020-12-27] MEDS: ASCORBIC ACID 500 MG TAB PO SCH (08:57)
[2020-12-27] MEDS: DILTIAZEM CD 120 MG CAP.ER.24H PO SCH (08:57)
[2020-12-27] MEDS: guaiFENesin 600 MG TABLET.ER PO SCH (08:57)
[2020-12-27] MEDS: APIXABAN 5 MG TAB PO SCH (08:57)
[2020-12-27] MEDS: lisinopriL 10 MG TAB PO SCH (08:57)
[2020-12-27] MEDS: CHOLECALCIFEROL 25 MCG (1000 IU) TABLET PO SCH (08:57)
[2020-12-27] MEDS: ZINC SULFATE 220 MG CAP PO SCH (08:57)
[2020-12-27] MEDS: MULTIVITAMINS, THERA 1 EACH TAB PO SCH (08:57)
[2020-12-27 09:42] VITALS: BP 186/88; TEMP 98.2
[2020-12-27] MEDS ORDERED: NITROGLYCERIN SL TABS 0.4 MG TAB SUBLINGUAL ONE (10:02)
[2020-12-27] MEDS ORDERED: ATROPINE OPHTH SOLN 1% 5ML BTL SUBLINGUAL PRN (10:18)
[2020-12-27] MEDS ORDERED: MORPHINE SULFATE 4 MG/ML SYRINGE IV PRN (10:18)
[2020-12-27] MEDS ORDERED: LORazepam 2 MG/ML INJ IV PRN ×2 (10:18→11:32)
[2020-12-27] MEDS ORDERED: MORPHINE SULFATE 2 MG/ML SYRINGE IV PRN (10:18)
[2020-12-27] MEDS ORDERED: ONDANSETRON 4 MG/2 ML VIAL IVP PRN (10:18)
[2020-12-27] MEDS ORDERED: GLYCOPYRROLATE 0.2 MG/ML 2 ML VIAL IVP PRN (10:18)
[2020-12-27] MEDS ORDERED: MORPHINE SULFATE (100 MG/2 ML) 100 MG in SODIUM CHLORIDE 0.9% 100 ML IV SCH (10:30)
[2020-12-27] MEDS ORDERED: SCOPOLAMINE 1.5MG/72HR PATCH TRANSDERM SCH (10:30)
--- NOTE | 2020-12-27 14:50 | P.PN ---
Subjective Progress Note Date: 12/27/20 This is a very pleasant 80-year-old female patient with a known history of severe advanced chronic obstructive pulmonary disease and chronic hypoxic respiratory failure with multiple admissions for the same. She also has a history of chronic tobacco dependence, hypertension, hyperlipidemia, H. pylori. She's had a vague right upper lobe opacity that had been followed in the outpatient setting. PET scan in October 2020 showed no significant metabolic activity. She had also been recently diagnosed with CoVID 19 pneumonia and was here on December 20 through 12/21/2020 for shortness of breath. She was feeling better and was discharged home. She represented here to the emergency room again yesterday with complaints of worsening shortness of breath. Chest x-ray revealed a new bilateral interstitial pneumonia that had increased compared to 2 days prior. White count 17.4. Hemoglobin 14.2. Sodium 137. Potassium 3.1. Creatinine 0.53. AST 59. ALT 43. She had tested positive for rain virus by PCR on 12/20/2020. She is seen today in consultation in the emergency room. She is currently sitting up in the stretcher. Awake and alert in mild respiratory distress. She states she did get quite a bit worse in the past 24 hours. She is currently on 15 L with 100% FiO2 via nonrebreather. She's currently O2 saturations in the mid 90s. She has been initiated on Symbicort, albuterol, IV Solu-Medrol. She did present in atrial flutter with RVR. Currently her ventricular rate is controlled in the 70s. The patient is seen today 12/24/2020 in follow-up on the selective care unit. She is currently sitting up in bed. Awake and alert in no acute distress. She is still requiring 15 L high flow nasal cannula with a partial nonrebreather mask. She is still short of breath with minimal exertion. Cough and congested. Small amount of hemoptysis. Blood culture reveals no growth. D-dimer 0.65. C-reactive protein 125. Pro-calcitonin 0.07. She remains on Symbicort, albuterol, IV Solu-Medrol. Anticoagulated with Eliquis. On vitamin supplements. The patient is seen today 12/24/2020 in follow-up on the selective care unit. She is currently sitting up at the bedside. Awake and alert in no acute distress. Still quite dyspneic with conversation. Dyspneic with minimal exertion. She is still requiring 15 L high flow nasal cannula along with a nonrebreather mask. D-dimer 2.03. C-reactive protein 44. She remains on Symbicort, albuterol, IV Solu-Medrol. Anticoagulated with Eliquis. Vitamin supplements. The patient is seen today 12/25/2020 in follow-up on the selective care unit. She is currently resting in bed. She is now on BiPAP 10/5 and 100% FiO2 to maintain O2 saturation in the mid to upper 80s and low 90s. She remains on IV Solu-Medrol, Symbicort, albuterol. Anticoagulated with Eliquis. Patient is seen today 12/27/2020 in follow-up on the selective care unit. She has been struggling to breathe despite being on BiPAP 10/5 and 100% overnight. Maintaining O2 saturation about 88%. She was pulling off her BiPAP stating she wanted to not wear it any more. Stating she does not want to continue to live like this. She is requesting comfort care. Family is at the bedside and are all in agreement. She'll remain off the BiPAP. We will initiate a morphine drip. Scopolamine patch in place. Objective - Vital Signs Vital signs: Vital Signs Temp 98.2 F 12/27/20 08:50 Pulse 78 12/27/20 08:50 Resp 26 H 12/27/20 08:50 BP 186/88 12/27/20 08:50 Pulse Ox 88 L 12/27/20 08:50 Intake & Output 12/26/20 12/27/20 12/27/20 18:59 06:59 18:59 Intake Total 0 41.037 Output Total 1201 200 800 Balance -1201 -200 -758.963 Weight 58 kg Intake: IV 40 Invasive Line 2 10 Invasive Line 3 30 Intake, IV Titration 1.037 Amount Morphine Sulfate (100 mg/ 1.037 2 ml) 100 mg In Sodium Chloride 0.9% 100 ml @ 1 MG/HR 1.02 mls/hr IV . Q24H [facility] Rx#:[id number] Oral 0 Output: Urine 1201 200 800 Uretheral (Ray) 600 Other: Voiding Method Bedpan Indwelling Catheter # Voids 1 1 1 # Bowel Movements 1 - Exam GENERAL EXAM: Alert, weak, fatigued 80-year-old female, and BiPAP 10/5 and 100% FiO2, in moderate respiratory distress. HEAD: Normocephalic. EYES: Normal reaction of pupils, equal size. NOSE: Clear with pink turbinates. THROAT: No erythema or exudates. NECK: No masses, no JVD. CHEST: No chest wall deformity. LUNGS: Equal air entry with bibasilar crackles, end expiratory wheeze, diminished CVS: S1 and S2 normal with no audible murmur, regular rhythm. ABDOMEN: No hepatosplenomegaly, normal bowel sounds, no guarding or rigidity. SPINE: No scoliosis or deformity SKIN: No rashes CENTRAL NERVOUS SYSTEM: No focal deficits, tone is normal in all 4 extremities. EXTREMITIES: There is no peripheral edema. No clubbing, no cyanosis. Peripheral pulses are intact. - Labs CBC & Chem 7: 12/22/20 16:20 12/24/20 07:36 Labs: Abnormal Lab Results - Last 24 Hours (Table) 12/26/20 12/27/20 Range/Units 20:43 06:35 POC Glucose (mg/dL) 168 H 166 H (75-99) mg/dL Microbiology - Last 24 Hours (Table) 12/22/20 18:14 Blood Culture - Preliminary Blood No Growth after 96 hours Assessment and Plan Assessment: 1 Acute on chronic hypoxemic respiratory failure secondary to CoVID 19 pneumonia 2 Acute exacerbation of chronic obstructive pulmonary disease secondary to above 3 Advanced chronic obstructive pulmonary disease with upper lobe changes/bullous changes with multiple admissions for exacerbations in the past 4 History of vague right upper lobe opacity and followed in the outpatient setting. PET scan in October 2020 showed no evidence of any significant metabolic uptake in the right upper lobe. 5 History of chronic tobacco dependence. 6 Atrial flutter with rapid ventricular response, anticoagulated with Eliquis, on beta blockers, calcium channel blockers 7 Hypertension 8 Hyperlipidemia 9 Recent treatment for H. pylori. 10 Poor overall functional performance based on the above-mentioned multiple comorbidities Plan: The patient was seen and evaluated by Dr. Sarabia The patient has been refusing BiPAP and requesting comfort care Her family is at the bedside and all in agreement She'll be taken off the BiPAP, placed on nasal cannula Initiated on a morphine drip, scopolamine patch in place I, the cosigning physician, performed a history & physical examination of the patient. Lungs sounds with bibasilar crackles, end expiratory wheeze, diminished. Maintaining good O2 saturations in the 90s on nasal cannula, I discussed the assessment and plan of care with my nurse practitioner, Malgorzata Dowell. I attest to the above note as dictated by her.
[2020-12-27 18:24] VITALS: PULSE 89
[2020-12-27 19:26] VITALS: RESP 10
--- NOTE | 2020-12-27 20:56 | P.DS ---
Providers Date of admission: 12/22/20 18:39 Expected date of discharge: 12/27/20 Attending physician: Gilberto Devi Consults: 12/22/20 18:38 Consult Physician Urgent Consulting Provider: Gianluca Sarabia Reason/Comments: COVID pneumonia Do you want consulting provider notified?: Yes Primary care physician: Neptali Ariza [facility] Course: Chief Complaint: Short of breath History of presenting complaint: This is a pleasant 80-year-old patient of Dr. 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 Chronic stable medical conditions include hyperlipidemia, hypertension, osteoarthritis, diverticulosis, home oxygen 2 L. positive for H. pylori. Paroxysmal atrial fibrillation. He recently in the hospital for COPD exacerbation. Patient was admitted for one day overnight on december 20. The diagnosis of the COVID 19 pneumonia. Symptoms are rather mild. With some COPD exacerbation. Was treated with bronchodilators steroids and was discharged. Patient at the baseline is on 2 L oxygen. Patient now returns with increasing shortness of breath cough or shortness breath. ER patient was to 3% on 3 L. Rather tachycardic. Some cough. No fever no chills. Tired. Admitted with COVID 19 pneumonitis, acute hypoxic respiratory failure, acute COPD exacerbation. Patient on eliquis, Solu-Medrol. Also had A. fib with rapid ventricular rate.-Converted to sinus rhythm Today-this morning patient became more and more short of breath. Was struggling with breathing. Nurse called me. I asked the nurse to call Dr. Sarabia is patient's inhalation therapy aides teacher. Agreed to proceed with comfort measures. That will instituted. Consultation to hospice was placed at 12:18 PM. For GIP. Spoke to patient's 2 sons and daughter the bedside. Questions were answered. Patient was placed on morphine. Patient later in the day. Total time spent today 40 minutes Consultation: Dr. Sarabia from pulmonary Dr. PRISCILLA Purvis from cardiology Past medical history to include: COPD, hyperlipidemia, hypertension, osteoarthritis, pneumonia, diverticulosis, home oxygen 2 L, left arm fracture, GERD, H. pylori, diverticulitis, urinary incontinence , possibly atrial fibrillation Social history: Lives alone. Smoked for about 39 years stopped in 1997. Smoked less than a pack a day. No alcohol. - INVESTIGATIONS, reviewed in the clinical context: December 25: D-dimer 2.03 CRP 44.6 December 24: D-dimer 0.65 CRP 125.4 pro-calcitonin 0.07 . Check stat x-ray diffuse infiltrates WBC 7.4 hemoglobin 14.2 platelets 310 potassium 3.1 lymphocytes 0.5 creatinine 0.53 Lactic acid 3.8 troponin I less than 0.012 D-dimer 0.29 CRP 83.6 EKG tracing personally reviewed by me-atrial flutter fibrillation with a rate of 136 Chest x-ray film personally reviewed by me-bilateral infiltrates, new compared to that from 2 days ago Cause of : COVID 19 pneumonitis Assessment and plan: -COVID 19 pneumonitis. Diagnosed recently with progression of symptoms. Patient placed on vitamin C vitamin D IV Solu-Medrol, continue eliquis. Clinically worsening -Acute hypoxic respiratory failure secondary to COVID 19 pneumonitis. Worsening. On BiPAP -Acute COPD exacerbation in an ex-smoker on bronchodilators, Symbicort, IV [id number] to respond -Paroxysmal atrial flutter/fibrillation-uncontrolled . Toprol-XL. eliquis. -GERD on Protonix -Essential hypertension, continue Toprol-XL -Primary osteoarthritis, use Tylenol when necessary -Colonic diverticulosis , asymptomatic -chronic hypoxic respiratory failure on home oxygen 2 L Disposition: Patient Plan - Discharge Summary Discharge Rx Participant: Yes New Discharge Prescriptions: No Action Budesonide-Formot 160-4.5 Mcg [Symbicort 160-4.5 Mcg Inhaler] 2 puff INHALATION RT-BID Albuterol Sulfate [Proair Hfa] 2 puff INHALATION RT-Q6H PRN PRN Reason: Shortness Of Breath Ipratropium-Albuterol Nebulize [Duoneb 0.5 mg-3 mg/3 ml Soln] 3 ml INHALATION RT-QID PRN PRN Reason: Shortness Of Breath Pantoprazole Sodium [Protonix] 40 mg PO DAILY Cholecalciferol [Vitamin D3 (25 Mcg = 1000 Iu)] 25 mcg PO DAILY ALPRAZolam [Xanax] 0.25 mg PO DAILY PRN PRN Reason: Anxiety Apixaban [Eliquis] 5 mg PO BID #60 tab Metoprolol Succinate [Toprol XL] 25 mg PO DAILY #30 tab Multivitamins, Thera [Multivitamin (formulary)] 1 tab PO DAILY Diltiazem Oral [Cardizem*] 30 mg PO TID Zinc Sulfate [Orazinc] 220 mg PO DAILY #30 cap Ascorbic Acid [Vitamin C] 1,000 mg PO DAILY #30 tab predniSONE See Taper PO DIRECTED Discharge Medication List Budesonide-Formot 160-4.5 Mcg [Symbicort 160-4.5 Mcg Inhaler] 2 puff INHALATION RT-BID 02/09/18 [History] Albuterol Sulfate [Proair Hfa] 2 puff INHALATION RT-Q6H PRN 09/28/20 [History] Ipratropium-Albuterol Nebulize [Duoneb 0.5 mg-3 mg/3 ml Soln] 3 ml INHALATION RT-QID PRN 09/28/20 [History] Cholecalciferol [Vitamin D3 (25 Mcg = 1000 Iu)] 25 mcg PO DAILY 11/19/20 [History] Pantoprazole Sodium [Protonix] 40 mg PO DAILY 11/19/20 [History] ALPRAZolam [Xanax] 0.25 mg PO DAILY PRN 12/08/20 [History] Apixaban [Eliquis] 5 mg PO BID #60 tab 12/11/20 [Rx] Metoprolol Succinate [Toprol XL] 25 mg PO DAILY #30 tab 12/13/20 [Rx] Diltiazem Oral [Cardizem*] 30 mg PO TID 12/20/20 [History] Multivitamins, Thera [Multivitamin (formulary)] 1 tab PO DAILY 12/20/20 [History] Ascorbic Acid [Vitamin C] 1,000 mg PO DAILY #30 tab 12/21/20 [Rx] Zinc Sulfate [Orazinc] 220 mg PO DAILY #30 cap 12/21/20 [Rx] predniSONE See Taper PO DIRECTED 12/22/20 [History] Follow up Appointment(s)/Referral(s): Neptali Ariza DO [Primary Care Provider] - 1-2 days
== END 2020-12-27 21:52 | disposition expired | DRG 871 ==
LOC: EC 15:56 → 4SSUR 18:39 → 3SCARD 19:30
PROVIDERS: ADMIT Hospitalist; ATTEND Hospitalist
PROC: 5A09457 Assistance with Respiratory Ventilation, 24-96 Consecutive Hours, Continuous Positive Airway Pressure (ICD-10-PCS; 2020-12-22)
PROC: 5A0935A Assistance with Respiratory Ventilation, Less than 24 Consecutive Hours, High Flow/Velocity Cannula (ICD-10-PCS; 2020-12-22)
PROC: XW033H5 Introduction of Tocilizumab into Peripheral Vein, Percutaneous Approach, New Technology Group 5 (ICD-10-PCS; principal; 2020-12-23)
DX: A41.89 Other specified sepsis (principal); U07.1 COVID-19; J12.82 Pneumonia due to coronavirus disease 2019; J96.21 Acute and chronic respiratory failure with hypoxia; E87.2 Acidosis; J44.1 Chronic obstructive pulmonary disease with (acute) exacerbation; J44.0 Chronic obstructive pulmonary disease with (acute) lower respiratory infection; I48.92 Unspecified atrial flutter; Z51.5 Encounter for palliative care; Z66 Do not resuscitate; Z79.51 Long term (current) use of inhaled steroids; Z79.01 Long term (current) use of anticoagulants; E78.5 Hyperlipidemia, unspecified; K21.9 Gastro-esophageal reflux disease without esophagitis; Z87.891 Personal history of nicotine dependence; Z82.49 Family history of ischemic heart disease and other diseases of the circulatory system; Z80.1 Family history of malignant neoplasm of trachea, bronchus and lung; Z99.81 Dependence on supplemental oxygen; I48.0 Paroxysmal atrial fibrillation; K57.30 Diverticulosis of large intestine without perforation or abscess without bleeding; Z96.642 Presence of left artificial hip joint; I10 Essential (primary) hypertension; B96.81 Helicobacter pylori [H. pylori] as the cause of diseases classified elsewhere; M19.91 Primary osteoarthritis, unspecified site; I25.10 Atherosclerotic heart disease of native coronary artery without angina pectoris; G89.29 Other chronic pain; Z88.1 Allergy status to other antibiotic agents
CPT/HCPCS: 36415; 71045; 71046; 80053; 83605; 84132; 84145; 84484; 85025; 85379; 85610; 85730; 86140; 87040; 93005; 94640; 94660; 96361; 96374; 96375; 96376; 99291